=== PATIENT | female | born 1980 | race Caucasian/White ===

== ENCOUNTER 2017-06-21 06:12 | Observation (INO) | payer MEDICAID, SELFPAY ==
[2017-06-21] VITALS (19 sets, daily range): BP systolic 101–127; BP diastolic 66–90; PULSE 97–112; RESP 13–26; TEMP 36.4–37.6; O2SAT 95–100; BMI 34.0; BMI 33.6; BMI 33.7
--- NOTE | 2017-06-21 06:26 | EKG12_ITS ---
Test Reason : CP Blood Pressure : / mmHG Vent. Rate : 108 BPM Atrial Rate : 108 BPM P-R Int : 160 ms QRS Dur : 088 ms QT Int : 368 ms P-R-T Axes : 031 -12 040 degrees QTc Int : 493 ms Sinus tachycardia Abnormal ECG Old cathy septal DC Confirmed by ELIS OLIVARES ([id number]), website/blog editor ELIZABETH RODRIGUEZ ([id number]) on 06/26/2017 1:49:01 PM Referred By: VANESA Confirmed By:ELIS OLIVARES
--- NOTE | 2017-06-21 06:26 | RAD_ITS ---
STUDY: X-RAY CHEST REASON FOR EXAM: Female, 37 years old. CP SINCE YESTERDAY, SOB, HEART ATTACK HX 3 YRS AGO TECHNIQUE: Frontal and lateral views of the chest. COMPARISON: None. FINDINGS: The lungs are clear and expanded. There is no demonstrated pleural abnormality. Normal size heart. Normal mediastinum and charlene. Normal visualized pulmonary arteries. Normal visualized aortic arch and descending thoracic aorta. Normal visualized thoracic spine. Normal visualized ribs, clavicles, and shoulders. There is no demonstrated abnormality of the visualized soft tissue structures of the upper abdomen. RAD/Chest PA and Lateral IMPRESSION: Normal x-ray examination of the chest. Electronically Signed: Dorys Greene MD at 7:18 EST Tel , Service support ,
[2017-06-21 06:35] LABS: Absolute Lymphocyte Count 2.64 X10^3/ul (0.83-4.51); Absolute Neutrophil Count 4.7 X10^3/uL (2.0-7.7); Basophil# 0.03 X10^3/uL; Basophil% 0.4 % (0-1); Eosinophil# 0.14 X10^3/uL; Eosinophils% 1.7 % (0-5); Hematocrit 38.9 % (37-47); Hemoglobin 13.3 g/dl (12.0-15.0); Lymphocyte # 2.64 X10^3/ul (4.0); Lymphocyte % 32.2 % (19-41); Mean Corp Hgb Conc 34.2 g/gl (32-36); Mean Corpuscular Hgb 29.9 pg (27.0-32.0); Mean Corpuscular Volume 87.4 fL (81-99); Mean Platelet Vol. 10.1 fl (6.2-12.0); Monocyte# 0.66 X10^3/uL; Neutrophil # 4.71 X10^3/uL (2.7-7.7); Neutrophil % 57.5 % (47-70); Platelet Count 237 K/mm3 (150-450); RBC Distribution Width CV 12.6 % (11.6-14.6); RBC Distribution Width SD 39.2 fl (35.1-43.9); Red Blood Count 4.45 M/mm3 (4.2-5.4); White Blood Count 8.2 K/mm3 (4.4-11.0)
[2017-06-21 06:36] LABS: POSITIVE COUNT NO; POSITIVE DIFFERENTIAL NO; POSITIVE MORPHOLOGY NO
[2017-06-21 06:47] LABS: D-Dimer Quantitative (DVT/PE) < 0.27 FEU/ug/m (0.27-0.49)
[2017-06-21 06:52] LABS: Anion Gap 9 (5-15); BUN 14 mg/dL (7-18); BUN/Creat Ratio 17.6 RATIO (10-20); Calcium,Total 8.7 mg/dL (8.5-10.1); Chloride 102 mmol/L (98-107); EST Glomerular Filtration Rate 87 mL/min (>60); Est Glom Filt Rate - Afr Amer 105 mL/min (>60); Estimated Creatinine Clearance 94.54 ml/min; Glucose 368 mg/dL (74-106); Potassium 3.6 mmol/L (3.5-5.1); Sodium Level 137 mmol/L (136-145)
--- NOTE | 2017-06-21 07:08 | ED.VISSUMM ---
- ER Visit Summary Date of Service: 06/21/17 Chief Complaint: [] Chest pain History of Present Illness: The patient is a 37 F presents with chest pain since yesterday. Intermittent pain initially but has been constant since late yesterday. As a tightness left chest. Associated with nausea and dyspnea that is resolved. She was given morphine aspirin and nitroglycerin in the squad. She took a nitro at home. She has a history of hypertension diabetes high cholesterol and coronary artery disease. She has 2 stents. She had a heart cath in November of last year that shows stable coronaries and patent stents. Her ejection fraction was 40%. Physical Examination: [] Vital signs reviewed General: Well-nourished well-developed Head: Normocephalic atraumatic Eyes: Pupils equal round and reactive to light extraocular movements intact ENT: TMs clear no hemotympanum no trauma Neck: Nontender full range of motion Cardiovascular: Regular rate rhythm no murmurs normal S1-S2 Respiratory: No distress clear to auscultation bilaterally chest nontender Abdomen: Soft nontender nondistended normal bowel sounds no masses Back: Nontender no CVA tenderness Extremities: Nontender active range of motion ?4 extremities no trauma Skin: Normal color no trauma Neuro alert oriented cranial nerves II through XII intact normal strength sensation reflexes Test Results: [] Emergency Department Course and Treatment: [] EKG showed a sinus with a rate of 108. Q waves V1 through V4. Normal. Chemistries normal except glucose 362. Troponin negative. D-dimer negative. Chest x-ray shows nothing acute. Patient was given sublingual nitroglycerin. This did help her symptoms but she still has some pain. Requesting stronger pain medication. At this time I have a low suspicion for acute coronary syndrome PE or dissection. I do not feel she needs a CAT scan of her chest. Readmitted cardiac workup Treatment Plan: [] Disposition: [] Impression: [] Left-sided chest pain This note was generated with [email or web address] dictation software. It may contain incorrect words, spelling, and punctuation that were not noted in review of the chart prior to signing ED Disposition - Plan for ED Patient: Chief Complaint: Chest Pain Referrals: Alka Pringle [Primary Care Provider] -
--- NOTE | 2017-06-21 09:12 | PCM.HP.STD ---
Problem List (1) Chest pain Status: Acute (2) Syncope Status: Chronic (3) Obesity (BMI 30.0-34.9) Status: Chronic (4) Anxiety and depression Status: Chronic (5) Hyperlipidemia Status: Chronic Qualifiers: (6) Chest pain Status: Acute Qualifiers: (7) Type I diabetes mellitus Status: Chronic Qualifiers: (8) Coronary artery disease Status: Chronic Qualifiers: Comment: Status post stents (9) Hypertension Status: Chronic Qualifiers: (10) Chronic pain Status: Chronic Qualifiers: History of Present Illness Date of Admission: 06/21/17 Chief Complaint: chest pain The patient is a 37 year old F presents with a several day history of progressive chest pain. Patient stated chest pain is worse when she exerts herself and then gets better. Associated with shortness of breath and nausea. Patient also states that she has this cold sensation like breathing cold air on her chest. She states that this feels similar to when she had a heart attack and had a stent placed in 2013. Patient was admitted in November of last year and had a negative heart catheterization but she stated that she did not have the coldness in her chest at that time. [place] secondhand that the plan from the emergency room was for the patient to be discharged but the patient stated that she was having a heart attack and refused it. So we are asked to admit the patient for further evaluation. [] Past Medical History Past Medical History (Chronic Problems): Chronic Problems Syncope (Chronic) Obesity (BMI 30.0-34.9) (Chronic) Anxiety and depression (Chronic) Hyperlipidemia (Chronic) Type I diabetes mellitus (Chronic) Coronary artery disease (Chronic) Status post stents Hypertension (Chronic) Chronic pain (Chronic) Allergies Iodinated Contrast- Oral and IV Dye [Iodinated Contrast Media - IV Dye] Allergy (Verified 06/21/17 06:26) Hives nitroglycerin [From Nitro-Bid] Allergy (Verified 06/21/17 06:26) DROPS HR LOW BP Penicillins Allergy (Verified 06/21/17 06:26) Rash Sulfa (Sulfonamide Antibiotics) Allergy (Verified 06/21/17 06:26) Hives Beta-Blockers (Beta-Adrenergic Bloc Adverse Reaction (Verified 06/21/17 06:26) Low blood pressure gabapentin [From Neurontin] Adverse Reaction (Verified 06/21/17 06:26) Upset Stomach metformin Adverse Reaction (Verified 06/21/17 06:26) Upset Stomach nitroglycerin IV Allergy (Uncoded 06/21/17 06:26) DROPS HR nitro drips per pt will drop bp quick and will bottom out Home Medications: Ambulatory Orders Medication Instructions Recorded Aspirin [Aspirin, Baby] 81 mg PO DAILY 03/04/15 Insulin Glargine [Lantus SoloStar 35 units SC BID 03/04/15 Pen] Magnesium Oxide [Mag-Ox 400] 800 mg PO DAILY 03/04/15 Insulin Aspart [Novolog Vial] 10 unit SQ TIDCM 11/24/15 Sertraline HCl [Zoloft] 100 mg PO DAILY 11/25/15 Nitroglycerin [Nitrostat] 0.4 mg SUBLINGUAL Q5M PRN #1 bottle 11/26/15 Insulin Aspart [Novolog Flexpen] See Protocol SC TIDCM 03/20/16 Pregabalin [Lyrica] 250 mg PO QHS 01/22/17 Atorvastatin Calcium [Lipitor] 80 mg PO QHS 04/26/17 Clopidogrel Bisulfate [Plavix] 75 mg PO DAILY 04/26/17 Cyanocobalamin [Vitamin B12] 1,000 mcg PO DAILY@0800 04/26/17 Folic Acid 1 mg PO DAILY@0800 04/26/17 Isosorbide Mononitrate [Imdur] 30 mg PO DAILY 04/26/17 Pyridoxine HCl [Vitamin B-6] 100 mg PO DAILY@0800 04/26/17 Metoprolol Succinate [Toprol Xl] 50 mg PO DAILY #30 tab.er.24h 04/27/17 ranolazine ER 1,000 mg 1,000 mg PO BID #60 tab 05/29/17 tablet,extended release,12 hr Amitriptyline HCl [Elavil] 25 mg PO QHS 06/21/17 BuPROPion (XL) [Wellbutrin Xl] 300 mg PO DAILY 06/21/17 Prazosin HCl [Minipress] 5 mg PO DAILY 06/21/17 Surgical History: - - PCI ?2, bilateral tubal ligation, back surgery with L4-L5 rods and screws in place, tonsillectomy. 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 Denies: Blurred vision, Double vision HEENT: Denies: Head Aches, Sinus Congestion, Sinus Drainage Cardiovascular: Reports: Chest Pain. Denies: Edema Respiratory: Reports: Shortness of breath upon exertion. Denies: Cough, Shortness of breath at rest, Sputum production Gastrointestinal: Reports: Nausea. Denies: Abdominal Pain Genitourinary: Denies: Dysuria Musculoskeletal: Denies: Joint Pain, Joint Tenderness Skin: Denies: Rash, Wounds Neurological: Denies: Numbness, Tingling, Focal weakness Psychiatric: Reports: Anxiety Hematologic/ Lymphatic: Denies: Easy Bruising, Easy Bleeding, Hx of blood clot VTE Information - Inpt Only VTE Present on Admission: No VTE Pharm Prophylaxis ordered?: Yes Patient Problems: Active and Suspected Problems Chest pain (Acute) - Physical Exam General: Alert, Cooperative, No apparent distress, - - Years older than stated age HEENT: Atraumatic, Normocephalic Neck: No Nodes, Thyroid Normal Size and Texture Lungs: Clear to auscultation, Normal air movement, No rhonchi, No wheeze Cardiovascular: Regular rate, Regular Rhythm, Normal S1, Normal S2, No murmurs Abdomen: Bowel Sounds Present, Soft, Non Tender, Non-Distended, No Hepato-splenomegaly Extremities: No edema, No Calf Tenderness Psych/Mental Status: Normal Affect, Appropriate Vital Signs Temp Pulse Resp BP Pulse Ox 36.4 C L 104 H 14 111/81 H 98 06/21/17 06:13 06/21/17 08:57 06/21/17 08:12 06/21/17 08:12 06/21/17 08:12 Oxygen Flow Rate 2 Oxygen Delivery Method Nasal Cannula Weight: 97.522 kg Body Mass Index (BMI) 33.6 Assessment/Plan Active and Suspected Problems Chest pain (Acute) 1. Chest pain EKG, initial troponin, d-dimer, chest x-ray are all unremarkable. Patient does have known coronary artery disease and she states that this is very similar to that. Patient did have a normal heart catheterization in November of last year. Given the patient's symptoms, and her history I will consult cardiology for further input and evaluation. In the meantime we will cycle troponins. Concern is that this may be another anxiety episode that the patient was felt to have had back in November or possibly some other issue,. Apparently there was some concern about patient requesting stronger pain medications in the emergency room. 2. Diabetes mellitus type I Appears to be uncontrolled but will continue the patient on her home regimen and monitor. Patient is not in diabetic ketoacidosis at this time. 3. Deep prophylaxis with Lovenox. Code Visit OBSV E&M: 54945 Initial observation care L2
--- NOTE | 2017-06-21 09:18 | HP.PCM_ITS ---
Problem List (1) Chest pain Status: Acute (2) Syncope Status: Chronic (3) Obesity (BMI 30.0-34.9) Status: Chronic (4) Anxiety and depression Status: Chronic (5) Hyperlipidemia Status: Chronic Qualifiers: (6) Chest pain Status: Acute Qualifiers: (7) Type I diabetes mellitus Status: Chronic Qualifiers: (8) Coronary artery disease Status: Chronic Qualifiers: Comment: Status post stents (9) Hypertension Status: Chronic Qualifiers: (10) Chronic pain Status: Chronic Qualifiers: History of Present Illness Date of Admission: 06/21/17 Chief Complaint: chest pain The patient is a 37 year old F presents with a several day history of progressive chest pain. Patient stated chest pain is worse when she exerts herself and then gets better. Associated with shortness of breath and nausea. Patient also states that she has this cold sensation like breathing cold air on her chest. She states that this feels similar to when she had a heart attack and had a stent placed in 2013. Patient was admitted in November of last year and had a negative heart catheterization but she stated that she did not have the coldness in her chest at that time. [place] secondhand that the plan from the emergency room was for the patient to be discharged but the patient stated that she was having a heart attack and refused it. So we are asked to admit the patient for further evaluation. [] Past Medical History Past Medical History (Chronic Problems): Chronic Problems Syncope (Chronic) Obesity (BMI 30.0-34.9) (Chronic) Anxiety and depression (Chronic) Hyperlipidemia (Chronic) Type I diabetes mellitus (Chronic) Coronary artery disease (Chronic) Status post stents Hypertension (Chronic) Chronic pain (Chronic) Allergies Iodinated Contrast- Oral and IV Dye [Iodinated Contrast Media - IV Dye] Allergy (Verified 06/21/17 06:26) Hives nitroglycerin [From Nitro-Bid] Allergy (Verified 06/21/17 06:26) DROPS HR LOW BP Penicillins Allergy (Verified 06/21/17 06:26) Rash Sulfa (Sulfonamide Antibiotics) Allergy (Verified 06/21/17 06:26) Hives Beta-Blockers (Beta-Adrenergic Bloc Adverse Reaction (Verified 06/21/17 06:26) Low blood pressure gabapentin [From Neurontin] Adverse Reaction (Verified 06/21/17 06:26) Upset Stomach metformin Adverse Reaction (Verified 06/21/17 06:26) Upset Stomach nitroglycerin IV Allergy (Uncoded 06/21/17 06:26) DROPS HR nitro drips per pt will drop bp quick and will bottom out Home Medications: Ambulatory Orders Medication Instructions Recorded Aspirin [Aspirin, Baby] 81 mg PO DAILY 03/04/15 Insulin Glargine [Lantus SoloStar 35 units SC BID 03/04/15 Pen] Magnesium Oxide [Mag-Ox 400] 800 mg PO DAILY 03/04/15 Insulin Aspart [Novolog Vial] 10 unit SQ TIDCM 11/24/15 Sertraline HCl [Zoloft] 100 mg PO DAILY 11/25/15 Nitroglycerin [Nitrostat] 0.4 mg SUBLINGUAL Q5M PRN #1 bottle 11/26/15 Insulin Aspart [Novolog Flexpen] See Protocol SC TIDCM 03/20/16 Pregabalin [Lyrica] 250 mg PO QHS 01/22/17 Atorvastatin Calcium [Lipitor] 80 mg PO QHS 04/26/17 Clopidogrel Bisulfate [Plavix] 75 mg PO DAILY 04/26/17 Cyanocobalamin [Vitamin B12] 1,000 mcg PO DAILY@0800 04/26/17 Folic Acid 1 mg PO DAILY@0800 04/26/17 Isosorbide Mononitrate [Imdur] 30 mg PO DAILY 04/26/17 Pyridoxine HCl [Vitamin B-6] 100 mg PO DAILY@0800 04/26/17 Metoprolol Succinate [Toprol Xl] 50 mg PO DAILY #30 tab.er.24h 04/27/17 ranolazine ER 1,000 mg 1,000 mg PO BID #60 tab 05/29/17 tablet,extended release,12 hr Amitriptyline HCl [Elavil] 25 mg PO QHS 06/21/17 BuPROPion (XL) [Wellbutrin Xl] 300 mg PO DAILY 06/21/17 Prazosin HCl [Minipress] 5 mg PO DAILY 06/21/17 Surgical History: - - PCI ?2, bilateral tubal ligation, back surgery with L4-L5 rods and screws in place, tonsillectomy. 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 Denies: Blurred vision , Double vision HEENT: Denies: Head Aches, Sinus Congestion, Sinus Drainage Cardiovascular: Reports: Chest Pain. Denies: Edema Respiratory: Reports: Shortness of breath upon exertion. Denies: Cough, Shortness of breath at rest, Sputum production Gastrointestinal: Reports: Nausea. Denies: Abdominal Pain Genitourinary: Denies: Dysuria Musculoskeletal: Denies: Joint Pain, Joint Tenderness Skin: Denies: Rash, Wounds Neurological: Denies: Numbness, Tingling, Focal weakness Psychiatric: Reports: Anxiety Hematologic/ Lymphatic: Denies: Easy Bruising, Easy Bleeding, Hx of blood clot VTE Information - Inpt Only VTE Present on Admission: No VTE Pharm Prophylaxis ordered?: Yes Patient Problems: Active and Suspected Problems Chest pain (Acute) - Physical Exam General: Alert, Cooperative, No apparent distress, - - Years older than stated age HEENT: Atraumatic, Normocephalic Neck: No Nodes, Thyroid Normal Size and Texture Lungs: Clear to auscultation, Normal air movement, No rhonchi, No wheeze Cardiovascular: Regular rate, Regular Rhythm, Normal S1, Normal S2, No murmurs Abdomen: Bowel Sounds Present, Soft, Non Tender, Non-Distended, No Hepato- splenomegaly Extremities: No edema, No Calf Tenderness Psych/Mental Status: Normal Affect, Appropriate Vital Signs Temp Pulse Resp BP Pulse Ox 36.4 C L 104 H 14 111/81 H 98 06/21/17 06:13 06/21/17 08:57 06/21/17 08:12 06/21/17 08:12 06/21/17 08:12 Oxygen Flow Rate 2 Oxygen Delivery Method Nasal Cannula Weight: 97.522 kg Body Mass Index (BMI) 33.6 Assessment/Plan Active and Suspected Problems Chest pain (Acute) 1. Chest pain * EKG, initial troponin, d-dimer, chest x-ray are all unremarkable. * Patient does have known coronary artery disease and she states that this is very similar to that. * Patient did have a normal heart catheterization in November of last year. * Given the patient's symptoms, and her history I will consult cardiology for further input and evaluation. In the meantime we will cycle troponins. Concern is that this may be another anxiety episode that the patient was felt to have had back in November or possibly some other issue,. Apparently there was some concern about patient requesting stronger pain medications in the emergency room. 2. Diabetes mellitus type I * Appears to be uncontrolled but will continue the patient on her home regimen and monitor. Patient is not in diabetic ketoacidosis at this time. 3. Deep prophylaxis with Lovenox. Code Visit OBSV E&M: 71917 Initial observation care L2
[2017-06-21] MEDS: 0.9% NaCl Peripheral Flush Adult/Peds IV ×2 (09:49→21:41)
--- NOTE | 2017-06-21 09:54 | STEWCON_ITS ---
Reason For Study: Chest Pain Stress Results Protocol: Dobutamine Stress Echo Maximum Predicted HR: 184 bpm Target HR: 156 bpm% Maximum Pre dicted HR: 77 % DurationHeart Rate Stage (mm:ss) (bpm) BPCom ment Baseline 100 112/8 2Definity 4 ML Diluted Given DSE 10 MCG 3:00 10 0 115/81 DSE 20 MCG 3:04 11 4 111/78 DSE 30 MCG 3:00 12 6 132/84 DSE 40 MCG 5:37 14 1 132/83Atropine 1 MG IVP Recovery 105 123/8 9 Stress Duration: 14:41 mm:ss Maximum Stress HR: 141 bpmME TS: 1 Baseline Echocardiogram Findings The estimated ejection fraction is 45 %. Stress Echo Wall motion Data Resting WMIntermediate WMStress WM Resting Wall Motion Wall Motion Stress Basal anteroseptal: Severely All remaining camargo augmented Hypokinetic. normally. Mid-anteroseptal : Severly Hypokinetic. EKG Data NSR with old AWMI. The patient was titrated from 10 mcg to a maximum of 40 mcg of dobutamine during the stress. The maximum heart rate attained was 141 beats per minute. This was 76% of maximum predicted heart rate. During dobutamine infusion, there were no ST or T wave changes noted to suggest ischemia. No clinical angina was noted. No arrhythmias noted. Interpretation Summary The study was technically difficult. There is no comparison study available. Contrast injection was performed. Normal, submaximal, dobutamine echocardiogram. Negative for ischemia by EKG and echocardiographic anterior. Baseline moderate to severe anteroseptal wall hypokinesis due to previous myocardial infarction with minimal improvement during infusion. All other cam[place] appeared to augment normally at peak infusion. No anginal symptoms noted. Appropriate blood pressure response to dobutamine. Test terminated due to maximum dobutamine and atropine dosages. Decreased sensitivity due to poor echo windows requiring contrast agent and failure to reach target heart rate. Patient tolerated procedure well. No complications. Ordering Physician: Gus Griffin Referring Physician: Jc Luna MD Performed By: Elisa Mcfadden, JORDI, RVT
--- NOTE | 2017-06-21 10:26 | PCM.CONS.C ---
Problem List (1) Chest pain Status: Acute (2) Hyperlipidemia Status: Chronic Qualifiers: (3) Type I diabetes mellitus Status: Chronic Qualifiers: (4) Coronary artery disease Status: Chronic Qualifiers: Comment: Status post stents (5) Hypertension Status: Chronic Qualifiers: Reason for Consult Date of Consultation: 06/21/17 Reason for Consultation: Chest pain, hypertension, diabetes type 1, hypercholesterolemia, obesity, fibromyalgia History of Present Illness: The patient is a 37 year old F, patient of Dr. Ma's, with a history of hypertension, hypercholesterolemia, diabetes diagnosed at age 19 requiring insulin from that point forward, coronary artery disease status post acute anterior wall myocardial infarction 2013 at which time she went to [facility] and underwent emergent angioplasty and stenting of her LAD. The patient returned with substernal chest pain soon after that underwent repeat catheterization and underwent elective stenting of her mid RCA at [facility]. Subsequent to that the patient has had several catheterizations, 2 in 2015, and most recently in November 2016 at [facility] by Dr. Ma. I reviewed the catheterization film which demonstrated widely patent stents to her LAD and RCA, left to right collaterals to a small posterior lateral branch, right to left collaterals to a small posterior lateral branch as well, nonobstructive disease of her left main and left circumflex. Patient did have a very small diagonal branch which was pinched at its ostium, which is not amenable to PCI. Her main diagonal branch had a less than 50% stenosis at the ostium at the point of the stent in the LAD. Her LVEF was approximately 45-50% by my estimation. Patient has been struggling recently with progressively worsening dyspnea on exertion, chest pain, dizziness and blurry vision with bending over and standing up, and dyspnea on exertion after walking around 40 feet. Patient developed chest pain which woke her up this morning with partial relief with sublingual nitroglycerin ?3. When this did not improve, she came to [facility] for evaluation. Her initial EKG showed normal sinus rhythm with old anterior septal wall myocardial infarction, no acute changes. Her troponins been negative ?2. Patient states that when she has been tested in the past by walking on a treadmill her blood pressure, particularly the diastolic number of over 160, markedly increases to the point where she needs to stop. She has been compliant with her medications. 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 In addition she has a history of fibromyalgia, as well as MTH FR deficiency. [] Past Medical History Allergies/Adverse Reactions: Allergies Iodinated Contrast- Oral and IV Dye [Iodinated Contrast Media - IV Dye] Allergy (Verified 06/21/17 06:26) Hives nitroglycerin [From Nitro-Bid] Allergy (Verified 06/21/17 06:26) DROPS HR LOW BP Penicillins Allergy (Verified 06/21/17 06:26) Rash Sulfa (Sulfonamide Antibiotics) Allergy (Verified 06/21/17 06:26) Hives Beta-Blockers (Beta-Adrenergic Bloc Adverse Reaction (Verified 06/21/17 06:26) Low blood pressure gabapentin [From Neurontin] Adverse Reaction (Verified 06/21/17 06:26) Upset Stomach metformin Adverse Reaction (Verified 06/21/17:26) Upset Stomach nitroglycerin IV Allergy (Uncoded 06/21/17 06:26) DROPS HR nitro drips per pt will drop bp quick and will bottom out Home Medications: Ambulatory Orders Medication Instructions Recorded Aspirin [Aspirin, Baby] 81 mg PO DAILY 03/04/15 Insulin Glargine [Lantus SoloStar 35 units SC BID 03/04/15 Pen] Magnesium Oxide [Mag-Ox 400] 800 mg PO DAILY 03/04/15 Insulin Aspart [Novolog Vial] 10 unit SQ TIDCM 11/24/15 Sertraline HCl [Zoloft] 100 mg PO DAILY 11/25/15 Nitroglycerin [Nitrostat] 0.4 mg SUBLINGUAL Q5M PRN #1 bottle 11/26/15 Insulin Aspart [Novolog Flexpen] See Protocol SC TIDCM 03/20/16 Pregabalin [Lyrica] 250 mg PO QHS 01/22/17 Atorvastatin Calcium [Lipitor] 80 mg PO QHS 04/26/17 Clopidogrel Bisulfate [Plavix] 75 mg PO DAILY 04/26/17 Cyanocobalamin [Vitamin B12] 1,000 mcg PO DAILY@0800 04/26/17 Folic Acid 1 mg PO DAILY@0800 04/26/17 Isosorbide Mononitrate [Imdur] 30 mg PO DAILY 04/26/17 Pyridoxine HCl [Vitamin B-6] 100 mg PO DAILY@0800 04/26/17 Metoprolol Succinate [Toprol Xl] 50 mg PO DAILY #30 tab.er.24h 04/27/17 ranolazine ER 1,000 mg 1,000 mg PO BID #60 tab 05/29/17 tablet,extended release,12 hr Amitriptyline HCl [Elavil] 25 mg PO QHS 06/21/17 BuPROPion (XL) [Wellbutrin Xl] 300 mg PO DAILY 06/21/17 Prazosin HCl [Minipress] 5 mg PO DAILY 06/21/17 Past Medical History (Chronic Problems): Chronic Problems Syncope (Chronic) Obesity (BMI 30.0-34.9) (Chronic) Anxiety and depression (Chronic) Hyperlipidemia (Chronic) Type I diabetes mellitus (Chronic) Coronary artery disease (Chronic) Status post stents Hypertension (Chronic) Chronic pain (Chronic) Surgical History: - - PCI ?2, bilateral tubal ligation, back surgery with L4-L5 rods and screws in place, tonsillectomy. 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: Anxiety, Depression MUSIC CRITIC History: No pertinent MUSIC CRITIC history - *Family History Paternal History Items: Heart Disease Maternal History Items: Stroke Smoking Status: Never smoker Review of Systems - Review of Systems General: Denies: Fever, Night Sweats, Fatigue Cardiovascular: Reports: Chest Discomfort, Chest Discomfort at Rest, Chest Discomfort with Exertion, Chest Pressure, Chest Tightness, Shortness of Breath, Shortness of Breath with Exertion. Denies: Orthopnea, PND, Peripheral Edema, Palpitations, Lightheadedness, Dizziness, Near Syncope, Syncope Respiratory: Denies: Cough, Sputum Production, Hemoptysis Gastrointestinal: Denies: Hematemesis, Hematochezia, Melena Genitourinary: Denies: Dysuria, Hematuria Skin: Denies: Rash Subjectve: Patient laying in bed, no acute distress. Telemetry negative. Objective: Vital Signs Temp Pulse Resp BP Pulse Ox 97.5 F L 104 H 14 111/81 H 98 06/21/17 06:13 06/21/17 08:57 06/21/17 08:12 06/21/17 08:12 06/21/17 08:12 Oxygen Flow Rate 2 Oxygen Delivery Method Nasal Cannula Weight: 215 lb Body Mass Index (BMI) 33.6 General: Awake, Alert, Oriented x 3 HEENT: PERRL, EOMI, Sclera Non Icteric Neck: Supple, Good ROM, No Lymph Node Enlargement Lungs: Clear to auscultation Cardiovascular: Regular Rhythm, Normal S1, Normal S2, No Murmurs, No Rubs, No Gallops Vascular: No Carotid Bruits, Normal Femoral Pulses, Normal Radial Pulses, Normal Dorsalis Pedal Pulse, Normal Posterior Tibial Pulses Abdomen: Bowel Sounds Present, Soft, Non Tender, No HSM, No Organomegaly Extremities: No Cyanosis, No Clubbing, No edema Neurological: No Focal Motor or Sensory Deficit 06/21/17 09:45: Troponin I < 0.02 Rhythm: EKG: ECHO: Stress Test: Cardiac Cath: PCI: CT Surgery: Holter monitor: EPS: PPM: CXR: Chest CT Scan: Assessment/Plan 1. Coronary artery disease: Patient is chest pain is progressively worsening over the last several days to weeks, and based on her history of walking on a treadmill in the past that is most likely hypertensive induced as well. I have no doubt that her chest pain is most likely cardiac in origin, given her microvascular disease and very small vessels, some of which have ostial narrowings that are too small for PCI. I would like to improve her relationship between exertion and hypertensive induced chest pain with a modified Shiva treadmill echocardiogram mostly to evaluate her inferior wall to determine if she requires repeat catheterization. She already has known collaterals from left to right and right to left which may be contributing to her ischemic symptoms, particularly without stripping the collaterals during severe hypertensive episodes which increase cardiac wall stress. In addition I recommend switching her metoprolol to Coreg 6.25 mg p.o. twice daily and titrating up from there. The patient may require additional antihypertensive medications and if she has markedly increased diastolic pressures she would benefit from a diuretic such as Lasix or hydrochlorothiazide. She is already on Ranexa and is tolerating this fairly well for her microvascular disease. If the patient's stress test is markedly abnormal, she may require repeat diagnostic coronary angiogram and possibly flow wire evaluation and/or PCI of her diagonal branch to determine if she would benefit from intervention of this vessel #1. This may be somewhat problematic given the bifurcating nature of her LAD and diagonal at the previous stent site in the LAD. 2. Hyperlipidemia: Recommend obtaining a fasting lipid profile. Continue Lipitor for now. 3. Thank you very much for the opportunity to participate in the cardiac care of your patient. Consultation time took place between 10 AM and 10:30 AM. Code Visit Inpatient E&M: 67479 Init Hosp L2
[2017-06-21] MEDS: Magnesium Oxide 400 MG Tablet 800 MG PO (12:56)
[2017-06-21] MEDS: Clopidogrel Bisulfate 75 MG Tablet PO (12:58)
[2017-06-21] MEDS: Sertraline 100 MG Tablet PO (12:59)
[2017-06-21] MEDS: oxyCODONE 5 MG Tablet PO ×2 (13:11→20:40)
[2017-06-21 14:14] LABS: CRP < 2.90 mg/L (0.0-3.0)
[2017-06-21 14:15] LABS: Erythrocyte Sedimentation Rate 11 mm/hr (0-20)
[2017-06-21 14:31] LABS: Bedside Glucose 260 mg/dL (70-110)
--- NOTE | 2017-06-21 14:58 | ECHOCS_ITS ---
Reason For Study: CAD Procedure This was a 2D Doppler, Color Flow transthoracic echocardiogram. Contrast injection was performed. Exam performed portable in patient room. Left Ventricle Normal size and thickness. The estimated ejection fraction is 50 %. Anterio-Basal: Mildly hypokinetic. Mid-Anterior : Mildly hypokinetic. Mid-anteroseptal : Mildly hypokinetic. Right Ventricle Normal size and thickness. Normal systolic function. Atria Normal left atrium. Normal right atrium. Normal atrial septum. Mitral Valve The mitral valve is structurally normal. No prolapse or stenosis seen. Tricuspid Valve Normal tricuspid valve. Unable to estimate RV systolic pressure/pulmonary artery pressure due to technically difficult study. Trivial tricuspid valve insufficiency. Pulmonic Valve Normal pulmonic valve. Great Vessels Normal aortic root. Normal arch. Normal inferior vena cava. Inferior vena cava collapse with sniff. Pericardium/Pleural Trivial pericardial effusion. There are no echocardiographic indications of cardiac tamponade. Medication Diluted definity 3ml given slow IV push to enhance endocardial definition. MMode/2D Measurements & Calculations LVIDd: 4.6 cm IVSd: 1.1 cm LA dimension: 3.1 cm LVIDs: 3.3 cm LVPWd: 1.0 cm FS: 28.2 % LAV(MOD-bp): 34.8 ml EDV(MOD-sp4): 122.1 ml EDV(MOD-sp2): 98.7 ml LAV(MOD-bp) Indexed: 16.7 ml/m2 ESV(MOD-sp4): 54.7 ml EF(MOD-sp2): 36.4 % LAV(MOD-sp2): 37.3 ml EF(MOD-sp4): 55.2 % LAV(MOD-sp4): 31.0 ml SV(MOD-sp4): 67.4 ml SV(MOD-sp2): 35.9 ml LA A4 area: 14.1 cm2 RA A4 area: 11.1 cm2 Doppler Measurements & Calculations MV E max raphael: 59.2 cm/sec Ao V2 max: 106.6 cm/sec LV V1 max: 100.9 cm/sec MV A max raphael: 80.3 cm/sec Ao max P.5 mmHg LV V1 max P.1 mmHg MV E/A: 0.74 Interpretation Summary The estimated ejection fraction is 50 %. Anterio-Basal: Mildly hypokinetic Mid-Anterior : Mildly hypokinetic Mid-anteroseptal : Mildly hypokinetic Unable to estimate RV systolic pressure/pulmonary artery pressure due to technically difficult study. Trivial pericardial effusion. There are no echocardiographic indications of cardiac tamponade. There is no comparison study available. The study was technically difficult. Contrast injection was performed. Ordering Physician: Jc Luna Referring Physician: HIPOLITO JEFF Performed By: Elisa Mcfadden RDCS, RVT
[2017-06-21] MEDS: Ranolazine 500 MG Tablet 1000 MG PO ×2 (15:58→21:35)
[2017-06-21] MEDS: Isosorbide Mononitrate 30 MG Tablet PO (15:58)
[2017-06-21 18:31] LABS: Bedside Glucose 263 mg/dL (70-110)
--- NOTE | 2017-06-21 21:15 | EKG12_ITS ---
Test Reason : CP Blood Pressure : / mmHG Vent. Rate : 099 BPM Atrial Rate : 099 BPM P-R Int : 176 ms QRS Dur : 104 ms QT Int : 374 ms P-R-T Axes : 042 -12 044 degrees QTc Int : 479 ms Normal sinus rhythm Old ASWMI Low voltage QRS Borderline ECG When compared with ECG of 21-JUN-2017 20:54, MANUAL COMPARISON REQUIRED, DATA IS UNCONFIRMED Confirmed by ELIS OLIVARES ([id number]), deputy editor in chief ELIZABETH RODRIGUEZ ([id number]) on 06/26/2017 1:58:03 PM Referred By: ELISE Confirmed By:ELIS OLIVARES
[2017-06-21] MEDS: Amitriptyline 25 MG Tablet PO (21:35)
[2017-06-21] MEDS: Doxazosin 4 MG Tablet PO (21:35)
[2017-06-21] MEDS: Hydrocortisone Sod Succinate 100 MG/2 ML Vial IV (21:36)
[2017-06-21] MEDS: Atorvastatin Calcium 80 MG Tablet PO (21:36)
[2017-06-21] MEDS: Carvedilol 3.125 MG TABLET PO (21:36)
[2017-06-21] MEDS: Pregabalin 50 MG Capsule 250 MG PO (21:41)
[2017-06-21 22:01] LABS: Bedside Glucose 272 mg/dL (70-110)
[2017-06-22] VITALS (17 sets, daily range): BP systolic 92–133; BP diastolic 58–95; PULSE 78–97; RESP 15–25; TEMP 35.8–36.8; O2SAT 93–98
[2017-06-22 03:33] LABS: Mucous, Urine 0 SEEN /hpf (<or=2+)
[2017-06-22 03:34] LABS: Color, Urine Yellow (Yellow); Glucose, Dipstick 1000 mg/dl (Normal); Ketone-Dipstick 5 mg/dl (Negative); Leukocyte Esterase-Dipstick 25 /ul (Negative); Nitrite-Dipstick Negative (Negative); Occult Blood-Urine 250 /ul (Negative); Protein-Dipstick 15 mg/dl (Negative); Urine Bilirubin Dipstick Negative (Negative); Urine Clarity Sl. Cloudy (Clear); Urine Urobilinogen Normal (Normal)
[2017-06-22 03:38] LABS: Internal QC Validated? YES +Cl - CLEAR BKGD; Pregnancy, Urine Negative Negative
[2017-06-22 03:44] LABS: Bacteria RARE /hpf (None Seen); Red Blood Cells-Urine 5-10 SEEN /hpf (0-5); Squamous Epithelial Cells - UA 5-10 SEEN /hpf (5-10); Transitional Epithelial - Ur 0 SEEN /hpf (0-5); White Blood Cells 5-10 SEEN /hpf (0-5)
[2017-06-22 05:19] LABS: Anion Gap 10 (5-15); BUN 15 mg/dL (7-18); BUN/Creat Ratio 23.2 RATIO (10-20); Calcium,Total 8.1 mg/dL (8.5-10.1); Chloride 102 mmol/L (98-107); Cholesterol 124 mg/dL (200); Creatinine, Serum 0.65 mg/dL (0.55-1.02); EST Glomerular Filtration Rate 110 mL/min (>60); Est Glom Filt Rate - Afr Amer 133 mL/min (>60); Estimated Creatinine Clearance 116.36 ml/min; Glucose 272 mg/dL (74-106); High Density Lipoprotein 41 mg/dL; Potassium 4.2 mmol/L (3.5-5.1); Sodium Level 137 mmol/L (136-145); Triglycerides 125 mg/dL; Very Low Density Lipoprotein 25 mg/dL (5-40)
[2017-06-22 05:24] LABS: Absolute Lymphocyte Count 1.19 X10^3/ul (0.83-4.51); Absolute Neutrophil Count 4.5 X10^3/uL (2.0-7.7); Basophil# 0.01 X10^3/uL; Basophil% 0.2 % (0-1); Eosinophil# 0.04 X10^3/uL; Eosinophils% 0.7 % (0-5); Hematocrit 37.8 % (37-47); Hemoglobin 12.8 g/dl (12.0-15.0); Lymphocyte # 1.19 X10^3/ul (4.0); Lymphocyte % 20.2 % (19-41); Mean Corp Hgb Conc 33.9 g/gl (32-36); Mean Corpuscular Hgb 30.1 pg (27.0-32.0); Mean Corpuscular Volume 88.9 fL (81-99); Mean Platelet Vol. 9.9 fl (6.2-12.0); Monocyte# 0.18 X10^3/uL; Monocyte% 3.1 % (0-10); Neutrophil # 4.45 X10^3/uL (2.7-7.7); Neutrophil % 75.6 % (47-70); Platelet Count 213 K/mm3 (150-450); RBC Distribution Width CV 12.6 % (11.6-14.6); RBC Distribution Width SD 40.5 fl (35.1-43.9); Red Blood Count 4.25 M/mm3 (4.2-5.4); White Blood Count 5.9 K/mm3 (4.4-11.0)
[2017-06-22 05:25] LABS: POSITIVE COUNT NO; POSITIVE DIFFERENTIAL NO; POSITIVE MORPHOLOGY NO
[2017-06-22 05:28] LABS: Prothrombin Time (Protime)PT. 13.1 SECONDS (11.7-14.9)
[2017-06-22 05:29] LABS: Partial Thromboplast Time 25.9 Seconds (24.1-36.2)
--- NOTE | 2017-06-22 05:55 | EKG12_ITS ---
Test Reason : AM EKG Blood Pressure : / mmHG Vent. Rate : 085 BPM Atrial Rate : 085 BPM P-R Int : 186 ms QRS Dur : 108 ms QT Int : 408 ms P-R-T Axes : 049 -16 048 degrees QTc Int : 485 ms Normal sinus rhythm Low voltage QRS Borderline ECG When compared with ECG of 21-JUN-2017 20:56, MANUAL COMPARISON REQUIRED, DATA IS UNCONFIRMED Confirmed by ELIS OLIVARES ([id number]), city editor ELIZABETH RODRIGUEZ ([id number]) on 06/26/2017 2:23:52 PM Referred By: ALONA Confirmed By:ELIS OLIVARES
[2017-06-22] MEDS: Aspirin 81 MG TAB.CHEW PO (06:06)
[2017-06-22] MEDS: Carvedilol 3.125 MG TABLET PO (06:06)
[2017-06-22] MEDS: Clopidogrel Bisulfate 75 MG Tablet PO (06:07)
[2017-06-22] MEDS: Losartan Potassium 50 MG Tablet PO (06:07)
[2017-06-22] MEDS: Isosorbide Mononitrate 30 MG Tablet PO (06:07)
[2017-06-22] MEDS: 0.9% NaCl Peripheral Flush Adult/Peds IV (06:08)
[2017-06-22 07:06] LABS: Bedside Glucose 192 mg/dL (70-110)
[2017-06-22] MEDS: DiphenhydrAMINE 25 MG Capsule 50 MG PO (07:39)
[2017-06-22] MEDS: Hydrocortisone Sod Succinate 100 MG/2 ML Vial IV (07:40)
--- NOTE | 2017-06-22 08:05 | CASEMGMT ---
Insurance review for [facility] using [employer] website. [facility], [facility], , [facility], [facility], [facility], [facility]. For further questions, please contact CM. Danielle FARR RN ACM
[2017-06-22 08:41] LABS: Base Excess -4 mmol/L (-2 to +2); Bicarbonate 20.7 mmol/L (22-26); Blood Gas Specimen Type ART; PO2 33 mmHG (75-100); SO2 63 % (95-99); Total Carbon Dioxide 22 mmol/L; pCO2 34.1 mmHg (35-45); pH 7.39 (7.35-7.45)
[2017-06-22 08:41] LABS: Base Excess -5 mmol/L (-2 to +2); Bicarbonate 20.2 mmol/L (22-26); Blood Gas Specimen Type ART; PO2 69 mmHG (75-100); SO2 93 % (95-99); Total Carbon Dioxide 21 mmol/L; pCO2 34.5 mmHg (35-45); pH 7.38 (7.35-7.45)
--- NOTE | 2017-06-22 09:36 | CL.D_ITS ---
Patient Name: LATA STONE Study Date: 06/22/2017 Performing: Jc Luna MD Ht: 66.92 inches 170 cm : 1980 Wt: 216.05 lbs 98 kg Age: 37 Gender: female BSA: 2.09 Amended PROCEDURE(S) PERFORMED SF29-TGL/LHC/COR/LV CLINICAL PROFILE AND INDICATIONS INDICATIONS: Unstable Angina Stress/Imaging Stress Echocardiogram: Yes Result: IndeterminantStress Echocardiogram: Indetermina nt Angina Classification Anginal Classification w/in 2 Weeks: CCS IV CAD Presentations: Unstable angina. Comorbidities/Risk Factors: Hypertension Dyslipidemia Prior CHF Prior PCI Diabetes Mellitus: Diabetes Therapy: Insulin CONCLUSIONS Non obstructive coronary arteries Segmented LV systolic dysfunction- Moderate The patient has normal pulmonary hemodynamics. RECOMMENDATIONS Risk factor modification PCI of DIAG and acute marginal branches are of questionable benefit, and appear similar to previous c ath <6 months ago. Pt has had CP since 2013 when she had her AR. Stents widely patent. Pt with kno wn severe exertional HTN, most likely causing high wall tension and exertional angina. Will add hyza ar and titrate up. Pt had positional dizziness with coreg in past, so continue lopressor. Management as per referring Case Work Aide Manual sheath removal. DESCRIPTION OF PROCEDURE The patient arrived to the procedure lab. The risks and benefits of the procedure as well as a full d escription of our services here and current unavailability of surgical backup were fully explained to the patient and/or their significant other prior to the catheterization. The Timeout was completed, verifying the correct patient and procedure. The patient's procedural site was prepped and draped in the usual fashion. Local anesthetic was given subcutaneously to right groin region with Lidocaine 2%. Using a modified Seldinger technique, arterial access was obtained via the right femoral artery, a 4 Fr sheath was inserted Venous access was obtained via the right femoral vein, a 7Fr sheath was insert ed. A 7Fr thermal dilution catheter was inserted and right heart pressures were recorded, it was then advanced to PA position for cardiac outputs. Thermal dilution cardiac outputs were then recorded. O2 saturations were then obtained. Left Ventriculography was performed in CABRERA projection using a 4 Fr. Pigtail catheter. LV to AO pullback pressures were then recorded. Simultaneous pressures were then re corded. The Thermal dilution catheter was then removed. Left Coronary Artery selective angiography wa s performed in multiple views using a 4 Fr. JL5 catheter. Right Coronary Artery selective angiography was then performed in multiple views using a 4 Fr. 3DRC catheter.The arterial sheath was pulled and manual compression applied until hemostasis is achieved.. The venous sheath was then pulled and manua l compression applied until hemostasis achieved CORONARY ANGIOGRAPHY DOMINANCE: Right Dominant LEFT HEART ASSESSMENT Left Ventricular Ejection Fraction: by LV Gram 45-50 % Anterior Hypokinesis - Moderate Normal Left Ventricular End Diastolic Pressure Depressed Left Ventricular systolic function RIGHT HEART ASSESSMENT Thermal CO: 4.62 Thermal CI: 2.21 Kumar CO: 5.32 Kumar CI: 2.55 PW: 03/07 9 PA: 19/12 15 RV: 23/06 8 RA: 09/02 4 PVR: 104 SVR: 1351 Right Heart pressures - normal LEFT MAIN: 20 % Stenosis LEFT ANTERIOR DECENDING ARTERY: MID LAD: Previously placed stent is patent DIAGONAL 1: Proximal - 50 % Stenosis DIAGONAL 2: Ostial - 80 % Stenosis, very small, no change since previous cath. CIRCUMFLEX ARTERY: Mild luminal irregularities less than 30% RIGHT CORONARY ARTERY: MID RCA: Previously placed stent is patent ACUTE MARGINAL: 80 ostial; too small for PCI. % Stenosis COMPLICATIONS No Complications PROCEDURE MEDICATIONS Versed 1 mg IV Versed 1 mg IV Fentanyl 25 mcg IV SUMMARY OF HEMODYNAMIC DATA Time AIR REST ECG 08:00:19 RA 09/02 (4) SV 08:18:14 RV 24/2, 8 08:18:33 PW 03/07 (9) PV 08:18:58 PA 19/12 (15) PA 08:19:24 LV 116/-17, 7 08:23:31 LV 119/-16, 8 08:23:37 LV 116/-17, 6 08:23:49 PA 14/01 (12) 08:23:49 LV 117/-17, 6 08:24:09 PW 02/05 (8) 08:24:09 LV 118/-17, 6 08:24:32 RV 23/1, 5 08:24:32 LV 117/-17, 6 08:25:07 RV 23/1, 5 08:25:07 LV 110/-17, 8 08:26:04 LV 112/-16, 8 08:26:10 LVp 110/-17, 8 08:26:15 AOp 102/67 (82) 08:26:20 AO 92/72 (82) SA 08:28:16 Type SV CO (l/m) CI (l/m/ HR Time AIR REST Thermal 52.50 4.62 2.21 88 08:00:19 Kumar 60.50 5.32 2.55 88 08:00:19 Label % O2 Pres/Loc Time AIR REST AO 93 PV 08:30:43 PA 63 PA 08:30:52 Signed By Jc Luna MD On 06/22/2017 08:49:55 Jc Luna MD
[2017-06-22] MEDS: Ranolazine 500 MG Tablet 1000 MG PO (10:53)
[2017-06-22] MEDS: Cyanocobalamin 500 MCG Tablet 1000 MCG PO (10:53)
[2017-06-22] MEDS: Pyridoxine HCl 100 MG Tablet PO (10:53)
[2017-06-22] MEDS: Magnesium Oxide 400 MG Tablet 800 MG PO (10:54)
[2017-06-22] MEDS: Folic Acid 1 MG Tablet PO (10:55)
[2017-06-22] MEDS: HYDROCHLOROTHIAZIDE 12.5 MG CAPSULE PO (10:55)
[2017-06-22 12:11] LABS: Bedside Glucose 219 mg/dL (70-110)
[2017-06-22] MEDS: 0.9% Normal Saline 1,000 ML 150 ML IV (12:15)
--- NOTE | 2017-06-22 12:30 | PN_ITS ---
Patient Problems: Active and Suspected Problems Chest pain (Acute) Subjective: Still with chest pain. Upset that the heart cath was actually negative. Vitals/I&O's: Vital Signs Temp Pulse Resp BP Pulse Ox 35.8 C L 90 16 133/95 H 98 06/22/17 10:00 06/22/17 11:00 06/22/17 11:00 06/22/17 11:00 06/22/17 11:00 Oxygen Flow Rate 2 Oxygen Delivery Method Room Air Weight: 97.522 kg Body Mass Index (BMI) 33.6 Intake and Output for Last 24 Hours 06/20/17 06/21/17 06/22/17 23:59 23:59 23:59 Intake Total 1000 / 1000 270 / 270 Output Total 0 / 0 Balance 1000 / 1000 270 / 270 General: Alert, No apparent distress HEENT: Atraumatic, Normocephalic Neck: No Nodes, Thyroid Normal Size and Texture Lungs: Clear to auscultation, Normal air movement, No rhonchi, No wheeze Cardiovascular: Regular rate, Regular Rhythm, Normal S1, Normal S2, No murmurs Abdomen: Bowel Sounds Present, Soft, Non Tender, Non-Distended Extremities: No edema, No Calf Tenderness Laboratory Results 06/21/17 13:10: Troponin I < 0.02 06/21/17 14:23: POC Glucose 260 H 06/21/17 18:26: POC Glucose 263 H 06/21/17 21:33: POC Glucose 272 H 06/22/17 03:20: Urine Test Negative 06/22/17 03:20: Urine Color Yellow, Urine Clarity Sl. Cloudy, Urine pH 5.0, Ur Specific [place] 1.020, Urine Protein 15 H, Urine Glucose (UA) 1000 H, Urine Ketones 5 H, Urine Occult Blood 250 H, Urine Nitrite Negative, Urine Bilirubin Negative, Urine Urobilinogen Normal, Ur Leukocyte Esterase 25 H, Urine RBC 5-10 SEEN, Urine WBC 5-10 SEEN, Ur Squamous Epith Cells 5-10 SEEN, Ur Transition Epith Cell 0 SEEN, Urine Bacteria RARE, Urine Mucus 0 SEEN 06/22/17 04:41: WBC 5.9, RBC 4.25, Hgb 12.8, Hct 37.8, MCV 88.9, MCH 30.1, MCHC 33.9, RDW 12.6, RDW Differential 40.5, Plt Count 213, MPV 9.9, Immature Gran % ( Auto) 0.200, Neut % (Auto) 75.6 H, Lymph % (Auto) 20.2, [place] % (Auto) 3.1, Eos % (Auto) 0.7, Baso % (Auto) 0.2, Absolute Neuts (auto) 4.5, Absolute Lymphs ( auto) 1.19, Total Counted Not Reportable 06/22/17 04:41: PT 13.1, INR 1.0, APTT 25.9 06/22/17 04:41: Sodium 137, Potassium 4.2, Chloride 102, Carbon Dioxide 25.0, Anion Gap 10, BUN 15, Creatinine 0.65, Estim Creat Clear Calc 116.36, Est GFR ( MDRD) Af Amer 133, Est GFR (MDRD) Non-Af 110, BUN/Creatinine Ratio 23.2 H, Glucose 272 H, Calcium 8.1 L, Triglycerides 125, Cholesterol 124, LDL Cholesterol 58, VLDL Cholesterol 25, HDL Cholesterol 41 06/22/17 06:59: POC Glucose 192 H 06/22/17 08:22: Specimen Type ART, pH 7.39, Bicarbonate Actual 20.7 L, POC Total CO2 22, Base Excess -4 L, O2 Saturation 63 L, ABG pCO2 34.1 L, ABG pO2 33 L* 06/22/17 08:29: Specimen Type ART, pH 7.38, Bicarbonate Actual 20.2 L, POC Total CO2 21, Base Excess -5 L, O2 Saturation 93 L, ABG pCO2 34.5 L, ABG pO2 69 L 06/22/17 12:02: POC Glucose 219 H Current Medications Acetaminophen (Tylenol) 325 - 650 mg PO Q6H PRN PRN PRN Reason: Pain Amitriptyline HCl (Elavil) 25 mg PO QHS [facility] Last Admin: 06/21/17 21:35 Dose: 25 mg [facility] ([facility], [facility]) [facility] Admin: 06/22/17 06:06 Dose: 81 mg Atorvastatin Calcium (Lipitor) 80 mg PO QHS [facility] Last Admin: 06/21/17 21:36 Dose: 80 mg Bupropion HCl (Wellbutrin Xl) 300 mg PO DAILY [facility] Last Admin: 06/22/17 10:54 Dose: 300 mg Clopidogrel Bisulfate (Plavix) 75 mg PO DAILY [facility] Last Admin: 06/22/17 06:07 Dose: 75 mg Cyanocobalamin (Vitamin B12) 1,000 mcg PO DAILY@0800 [facility] Last Admin: 06/22/17 10:53 Dose: 1,000 mcg Doxazosin Mesylate (Cardura) 4 mg PO QHS [facility] Last Admin: 06/21/17 21:35 Dose: 4 mg Folic Acid (Folic Acid) 1 mg PO DAILY@0800 [facility] Last Admin: 06/22/17 10:55 Dose: 1 mg Hydrochlorothiazide (Hydrochlorothiazide) 12.5 mg PO DAILY [facility] Last Admin: 06/22/17 10:55 Dose: 12.5 mg Sodium Chloride () 1,000 mls @ 0 mls/hr IV .Q0M [facility] PRN Reason: KVO Sodium Chloride () 1,000 mls @ 150 mls/hr IV .Q6H40M [facility] Stop: 06/22/17 16:15 Insulin Aspart (Novolog Flexpen (Bkc)) 0 units SC TIDCM [facility] PRN Reason: Protocol Last Admin: 06/22/17 10:08 Dose: Not Given Insulin Aspart (Novolog Flexpen (Bkc)) 10 units SC TIDCM [facility] Last Admin: 06/22/17 10:08 Dose: Not Given Insulin Detemir (Levemir (Bkc)) 35 units SC BID [facility] Last Admin: 06/21/17 21:36 Dose: 35 units Isosorbide Mononitrate (Imdur) 30 mg PO DAILY [facility] Last Admin: 06/22/17 06:07 Dose: 30 mg Losartan Potassium (Cozaar) 50 mg PO DAILY [facility] Last Admin: 06/22/17 06:07 Dose: 50 mg Magnesium Hydroxide (Milk Of Magnesia) 30 ml PO DAILY PRN PRN Reason: Constipation Magnesium Oxide (Mag-Ox 400) 800 mg PO DAILY [facility] Last Admin: 06/22/17 10:54 Dose: 800 mg Metoprolol Tartrate (Lopressor (Beta Lizbeth)) 25 mg PO BID [facility] Last Admin: 06/22/17 10:52 Dose: Not Given Nitroglycerin (Nitrostat) 0.4 mg SUBLINGUAL Q5M PRN PRN Reason: CHEST PAIN Last Admin: 06/21/17 20:57 Dose: 0.4 mg Ondansetron HCl (Zofran) 4 mg IV Q8H PRN PRN PRN Reason: NAUSEA Oxycodone HCl (Oxyir) 5 - 10 mg PO Q4H PRN PRN PRN Reason: MOD-SEVERE PAIN (4-10/10) Last Admin: 06/21/17 20:40 Dose: 10 mg Pregabalin (Lyrica) 250 mg PO QHS [facility] Last Admin: 06/21/17 21:41 Dose: 250 mg Pyridoxine HCl (Vitamin B-6) 100 mg PO DAILY@0800 [facility] Last Admin: 06/22/17 10:53 Dose: 100 mg Ranolazine (Ranexa) 1,000 mg PO BID [facility] Last Admin: 06/22/17 10:53 Dose: 1,000 mg Sertraline HCl (Zoloft) 100 mg PO DAILY [facility] Last Admin: 06/22/17 10:56 Dose: Not Given Sodium Chloride () 5 - 30 ml IV UD PRN PRN Reason: SALINE FLUSH Last Admin: 06/22/17 06:08 Dose: 10 ml Assessment/Plan Active and Suspected Problems Chest pain (Acute) 1. Chest pain * EKG, initial troponin, d-dimer, chest x-ray are all unremarkable. * Patient does have known coronary artery disease and she states that this is very similar to that. * Patient did have a normal heart catheterization in November of last year. * Given the patient's symptoms, and her history I will consult cardiology for further input and evaluation. In the meantime we will cycle troponins. Concern is that this may be another anxiety episode that the patient was felt to have had back in November or possibly some other issue,. Apparently there was some concern about patient requesting stronger pain medications in the emergency room. * Left heart catheterization was negative * That was noted that there were some small vessels that were not amenable to stenting or angioplasty that may be potentially causing her chest pain. Other possibilities could be anxiety and panic attacks. * Patient wishes to follow pulmonology as well I think that is fine just rule out any other process 2. Diabetes mellitus type I * Appears to be uncontrolled but will continue the patient on her home regimen and monitor. Patient is not in diabetic ketoacidosis at this time. 3. Deep prophylaxis with Lovenox.
--- NOTE | 2017-06-22 12:38 | PCM.DC ---
- Discharge Diagnoses Current Active Problems: Current Active and Chronic Problems Chest pain (Acute) You will use the following diet at home:: Cardiac Your food should be the consistency of: Regular Your liquids should be the consistency of: Regular/Thin Discharge Activity: Return to Normal Activity Allergies/Adverse Reactions: Allergies Iodinated Contrast- Oral and IV Dye [Iodinated Contrast Media - IV Dye] Allergy (Verified 06/21/17 06:26) Hives nitroglycerin [From Nitro-Bid] Allergy (Verified 06/21/17 06:) DROPS HR LOW BP Penicillins Allergy (Verified 06/21/17 06:) Rash Sulfa (Sulfonamide Antibiotics) Allergy (Verified 06/21/17 06:) Hives Beta-Blockers (Beta-Adrenergic Bloc Adverse Reaction (Verified 06/21/17:) Low blood pressure gabapentin [From Neurontin] Adverse Reaction (Verified 06/21/17 06:) Upset Stomach metformin Adverse Reaction (Verified 06/21/17 06:) Upset Stomach nitroglycerin IV Allergy (Uncoded 06/21/17 06:) DROPS HR nitro drips per pt will drop bp quick and will bottom out Medications to take at Discharge Aspirin [Aspirin, Baby] 81 mg PO DAILY 03/04/15 Insulin Glargine [Lantus SoloStar Pen] 35 units SC BID 03/04/15 Magnesium Oxide [Mag-Ox 400] 800 mg PO DAILY 03/04/15 Insulin Aspart [Novolog Vial] 10 unit SQ TIDCM 11/24/15 Sertraline HCl [Zoloft] 100 mg PO DAILY 11/25/15 Nitroglycerin [Nitrostat] 0.4 mg SUBLINGUAL Q5M PRN #1 bottle 11/26/15 Insulin Aspart [Novolog Flexpen] See Protocol SC TIDCM 03/20/16 Pregabalin [Lyrica] 250 mg PO QHS 01/22/17 Atorvastatin Calcium [Lipitor] 80 mg PO QHS 04/26/17 Clopidogrel Bisulfate [Plavix] 75 mg PO DAILY 04/26/17 Cyanocobalamin [Vitamin B12] 1,000 mcg PO DAILY@0800 04/26/17 Folic Acid 1 mg PO DAILY@0800 04/26/17 Isosorbide Mononitrate [Imdur] 30 mg PO DAILY 04/26/17 Pyridoxine HCl [Vitamin B-6] 100 mg PO DAILY@0800 04/26/17 ranolazine ER 1,000 mg tablet,extended release,12 hr 1,000 mg PO BID #60 tab 05/29/17 Amitriptyline HCl [Elavil] 25 mg PO QHS 06/21/17 BuPROPion (XL) [Wellbutrin Xl] 300 mg PO DAILY 06/21/17 Prazosin HCl [Minipress] 5 mg PO DAILY 06/21/17 Acetaminophen [Tylenol Tablet] 500 mg PO Q4H PRN tablet 06/22/17 Hydrochlorothiazide 12.5 mg PO DAILY #30 cap 06/22/17 Losartan Potassium [Cozaar] 50 mg PO DAILY #30 tab 06/22/17 Metoprolol Tartrate [Lopressor (beta zita)] 25 mg PO BID #60 tab 06/22/17 Oxycodone [Oxyir] 5 mg PO Q6H PRN 3 Days #12 tablet 06/22/17 The following prescriptions were given: Hydrochlorothiazide 12.5 mg PO DAILY #30 cap Losartan Potassium [Cozaar] 50 mg PO DAILY #30 tab Metoprolol Tartrate [Lopressor (beta zita)] 25 mg PO BID #60 tab Oxycodone [Oxyir] 5 mg PO Q6H PRN 3 Days #12 tablet PRN Reason: Mod-Severe Pain (-02/06) Primary Care Physician: Alka Pringle [Primary Care Provider] - Within 2 Weeks Please Follow Up With: Yong Ma MD When: 2-4 weeks Please Follow Up With: Alka Foley NP-C - Pulmonary for shortness of breath. When: 2-4 weeks Please Follow Up With: Psychology When: 1-2 weeks Proposed Discharge Date: 06/22/17
--- NOTE | 2017-06-22 12:40 | PCM.DC.SUM ---
Discharge Date and Diagnosis - Problem List Patient Problems: Active and Suspected Problems Chest pain (Acute) Date of Admission: 06/21/17 Date of Discharge: 06/22/17 - Primary Discharge Diagnosis Active and Suspected Problems Chest pain (Acute) - Secondary Discharge Diagnosis Chronic Problems Syncope (Chronic) Obesity (BMI 30.0-34.9) (Chronic) Anxiety and depression (Chronic) Hyperlipidemia (Chronic) Type I diabetes mellitus (Chronic) Coronary artery disease (Chronic) Status post stents Hypertension (Chronic) Chronic pain (Chronic) Hospital Course and Treatment Imaging Results: Clinical Impression(s) from Imaging Studies Chest X-Ray 06/21/17 06:26 IMPRESSION: Normal x-ray examination of the chest. Electronically Signed: Dorys Greene MD at 7:18 EST Tel , Service support , Operations: None Procedures: 2-D Echocardiogram, Cardiac catheterization, Stress test Summary of Care Provided: The patient is a 37 year old F is with chest pain. Patient stated this was similar to when she had a heart attack in 2013. Given the patient's history and frequent heart catheterizations cardiology was consulted. Stress test was performed but was normal with the exception of the area of previous ischemia. Cardiogram was performed that showed an ejection fraction of 50%. He did have a heart catheterization that showed nonobstructive coronary arteries. Segmented LV systolic dysfunction. The patient chest pains patient may have some mild distal disease that is not amenable to intervention or angioplasty. Other possibilities could be anxiety and panic attacks which patient does have known history of. Patient also complains of this bubbling sensation in her chest but I recommend patient follow-up with pulmonology and information is provided to her. Patient will be discharged. Patient will receive a short course of oxycodone to help with her pain also instructed to take Tylenol as well. [] Discharge Diet: No Restrictions Discharge Activity: Return to Normal Activity Call your doctor if you observe: Fever of 101 or Higher Home Medications: Medications to take at Discharge Aspirin [Aspirin, Baby] 81 mg PO DAILY 03/04/15 Insulin Glargine [Lantus SoloStar Pen] 35 units SC BID 03/04/15 Magnesium Oxide [Mag-Ox 400] 800 mg PO DAILY 03/04/15 Insulin Aspart [Novolog Vial] 10 unit SQ TIDCM 11/24/15 Sertraline HCl [Zoloft] 100 mg PO DAILY 11/25/15 Nitroglycerin [Nitrostat] 0.4 mg SUBLINGUAL Q5M PRN #1 bottle 11/26/15 Insulin Aspart [Novolog Flexpen] See Protocol SC TIDCM 03/20/16 Pregabalin [Lyrica] 250 mg PO QHS 01/22/17 Atorvastatin Calcium [Lipitor] 80 mg PO QHS 04/26/17 Clopidogrel Bisulfate [Plavix] 75 mg PO DAILY 04/26/17 Cyanocobalamin [Vitamin B12] 1,000 mcg PO DAILY@0800 04/26/17 Folic Acid 1 mg PO DAILY@0800 04/26/17 Isosorbide Mononitrate [Imdur] 30 mg PO DAILY 04/26/17 Pyridoxine HCl [Vitamin B-6] 100 mg PO DAILY@0800 04/26/17 ranolazine ER 1,000 mg tablet,extended release,12 hr 1,000 mg PO BID #60 tab 05/29/17 Amitriptyline HCl [Elavil] 25 mg PO QHS 06/21/17 BuPROPion (XL) [Wellbutrin Xl] 300 mg PO DAILY 06/21/17 Prazosin HCl [Minipress] 5 mg PO DAILY 06/21/17 Acetaminophen [Tylenol Tablet] 500 mg PO Q4H PRN tablet 06/22/17 Hydrochlorothiazide 12.5 mg PO DAILY #30 cap 06/22/17 Losartan Potassium [Cozaar] 50 mg PO DAILY #30 tab 06/22/17 Metoprolol Tartrate [Lopressor (beta zita)] 25 mg PO BID #60 tab 06/22/17 Oxycodone [Oxyir] 5 mg PO Q6H PRN 3 Days #12 tablet 06/22/17 Following Prescrptions Were Given to Patient: Hydrochlorothiazide 12.5 mg PO DAILY #30 cap Losartan Potassium [Cozaar] 50 mg PO DAILY #30 tab Metoprolol Tartrate [Lopressor (beta zita)] 25 mg PO BID #60 tab Oxycodone [Oxyir] 5 mg PO Q6H PRN 3 Days #12 tablet PRN Reason: Mod-Severe Pain (-02/06) Primary Care Physician: Alka Pringle [Primary Care Provider] - Within 2 Weeks Please Follow Up With: Yong Ma MD When: 2-4 weeks Please Follow Up With: Alka Foley NP-C - Pulmonary for shortness of breath. When: 2-4 weeks Please Follow Up With: Psychology When: 1-2 weeks Disposition: Home Minutes spent on discharge:: 35 Patient Condition:: Fair Meaningful Use Info Meaningful Use Diagnoses (Choose all that apply): None applicable Code Visit Inpatient E&M: 14554 Disch Hosp
--- NOTE | 2017-06-22 12:49 | DS.PCM_ITS ---
Discharge Date and Diagnosis - Problem List Patient Problems: Active and Suspected Problems Chest pain (Acute) Date of Admission: 06/21/17 Date of Discharge: 06/22/17 - Primary Discharge Diagnosis Active and Suspected Problems Chest pain (Acute) - Secondary Discharge Diagnosis Chronic Problems Syncope (Chronic) Obesity (BMI 30.0-34.9) (Chronic) Anxiety and depression (Chronic) Hyperlipidemia (Chronic) Type I diabetes mellitus (Chronic) Coronary artery disease (Chronic) Status post stents Hypertension (Chronic) Chronic pain (Chronic) Hospital Course and Treatment Imaging Results: Clinical Impression(s) from Imaging Studies Chest X-Ray 06/21/17 06:26 IMPRESSION: Normal x-ray examination of the chest. Electronically Signed: Dorys Greene MD at 7:18 EST Tel , Service support , Operations: None Procedures: 2-D Echocardiogram, Cardiac catheterization, Stress test Summary of Care Provided: The patient is a 37 year old F is with chest pain. Patient stated this was similar to when she had a heart attack in 2013. Given the patient's history and frequent heart catheterizations cardiology was consulted. Stress test was performed but was normal with the exception of the area of previous ischemia. Cardiogram was performed that showed an ejection fraction of 50%. He did have a heart catheterization that showed nonobstructive coronary arteries. Segmented LV systolic dysfunction. The patient chest pains patient may have some mild distal disease that is not amenable to intervention or angioplasty. Other possibilities could be anxiety and panic attacks which patient does have known history of. Patient also complains of this bubbling sensation in her chest but I recommend patient follow-up with pulmonology and information is provided to her. Patient will be discharged. Patient will receive a short course of oxycodone to help with her pain also instructed to take Tylenol as well. [] Discharge Diet: No Restrictions Discharge Activity: Return to Normal Activity Call your doctor if you observe: Fever of 101 or Higher Home Medications: Medications to take at Discharge Aspirin [Aspirin, Baby] 81 mg PO DAILY 03/04/15 Insulin Glargine [Lantus SoloStar Pen] 35 units SC BID 03/04/15 Magnesium Oxide [Mag-Ox 400] 800 mg PO DAILY 03/04/15 Insulin Aspart [Novolog Vial] 10 unit SQ TIDCM 11/24/15 Sertraline HCl [Zoloft] 100 mg PO DAILY 11/25/15 Nitroglycerin [Nitrostat] 0.4 mg SUBLINGUAL Q5M PRN #1 bottle 11/26/15 Insulin Aspart [Novolog Flexpen] See Protocol SC TIDCM 03/20/16 Pregabalin [Lyrica] 250 mg PO QHS 01/22/17 Atorvastatin Calcium [Lipitor] 80 mg PO QHS 04/26/17 Clopidogrel Bisulfate [Plavix] 75 mg PO DAILY 04/26/17 Cyanocobalamin [Vitamin B12] 1,000 mcg PO DAILY@0800 04/26/17 Folic Acid 1 mg PO DAILY@0800 04/26/17 Isosorbide Mononitrate [Imdur] 30 mg PO DAILY 04/26/17 Pyridoxine HCl [Vitamin B-6] 100 mg PO DAILY@0800 04/26/17 ranolazine ER 1,000 mg tablet,extended release,12 hr 1,000 mg PO BID #60 tab Amitriptyline HCl [Elavil] 25 mg PO QHS 06/21/17 BuPROPion (XL) [Wellbutrin Xl] 300 mg PO DAILY 06/21/17 Prazosin HCl [Minipress] 5 mg PO DAILY 06/21/17 Acetaminophen [Tylenol Tablet] 500 mg PO Q4H PRN tablet 06/22/17 Hydrochlorothiazide 12.5 mg PO DAILY #30 cap 06/22/17 Losartan Potassium [Cozaar] 50 mg PO DAILY #30 tab 06/22/17 Metoprolol Tartrate [Lopressor (beta ztia)] 25 mg PO BID #60 tab 06/22/17 Oxycodone [Oxyir] 5 mg PO Q6H PRN 3 Days #12 tablet 06/22/17 Following Prescrptions Were Given to Patient: Hydrochlorothiazide 12.5 mg PO DAILY #30 cap Losartan Potassium [Cozaar] 50 mg PO DAILY #30 tab Metoprolol Tartrate [Lopressor (beta zita)] 25 mg PO BID #60 tab Oxycodone [Oxyir] 5 mg PO Q6H PRN 3 Days #12 tablet PRN Reason: Mod-Severe Pain (-02/06) Primary Care Physician: Alka Pringle [Primary Care Provider] - Within 2 Weeks Please Follow Up With: Yong Ma MD When: 2-4 weeks Please Follow Up With: Alka Foley NP-C - Pulmonary for shortness of breath. When: 2-4 weeks Please Follow Up With: Psychology When: 1-2 weeks Disposition: Home Minutes spent on discharge:: 35 Patient Condition:: Fair Meaningful Use Info Meaningful Use Diagnoses (Choose all that apply): None applicable Code Visit Inpatient E&M: 80506 Disch Hosp
== END 2017-06-22 17:00 | disposition home or self-care (01) ==
LOC: ED 07:20 → ICU 08:23
PROVIDERS: Internal Medicine Cardiovascular Disease; Emergency Provider Emergency Medicine; Family Provider Family Medicine; PCP Family Medicine
DX: R07.89 Other chest pain (principal); I10 Essential (primary) hypertension; I25.10 Atherosclerotic heart disease of native coronary artery without angina pectoris; E78.5 Hyperlipidemia, unspecified; F41.9 Anxiety disorder, unspecified; F32.9 Major depressive disorder, single episode, unspecified; E10.9 Type 1 diabetes mellitus without complications; G89.29 Other chronic pain; E66.9 Obesity, unspecified; R06.02 Shortness of breath; I25.2 Old myocardial infarction; Z68.33 Body mass index [BMI] 33.0-33.9, adult; Z95.5 Presence of coronary angioplasty implant and graft; Z71.3 Dietary counseling and surveillance; Z79.899 Other long term (current) drug therapy; Z79.4 Long term (current) use of insulin; Z79.02 Long term (current) use of antithrombotics/antiplatelets; M79.7 Fibromyalgia
CPT/HCPCS: 71046; 80048; 80061; 81001; 81025; 82803; 82962; 84484; 85025; 85379; 85610; 85652; 85730; 86140; 93005; 93017; 93306; 93350; 93460; 96361; 96365; 96366; 96375; 96376; 99152; 99153; 99218; 99285; J7030; Q9957; A4216; C1751; C1769; C1894; C8928; C8929; G0378; J3490; Q9967

== ENCOUNTER 2017-08-10 00:05 | Observation (INO) | payer MEDICAID, SELFPAY ==
[2017-08-10] VITALS (9 sets, daily range): BP systolic 107–120; BP diastolic 51–82; PULSE 83–95; RESP 16–18; TEMP 36.7; O2SAT 97–100; BMI 33.7
--- NOTE | 2017-08-10 00:37 | HP.PCM_ITS ---
Problem List (1) Abdominal pain Status: Acute Qualifiers: Abdominal location: generalized Qualified Code(s): R10.84 - Generalized abdominal pain (2) Constipation Status: Acute Qualifiers: Constipation type: unspecified constipation type Qualified Code(s): K59.00 - Constipation, unspecified (3) Chest pain Status: Acute Qualifiers: Chest pain type: unspecified Qualified Code(s): R07.9 - Chest pain, unspecified (4) Obesity (BMI 30.0-34.9) Status: Chronic (5) Anxiety and depression Status: Chronic (6) Hyperlipidemia Status: Chronic Qualifiers: Hyperlipidemia type: unspecified Qualified Code(s): E78.5 - Hyperlipidemia , unspecified (7) Type I diabetes mellitus Status: Chronic Qualifiers: Diabetes mellitus complication status: with unspecified complications Qualified Code(s): E10.8 - Type 1 diabetes mellitus with unspecified complications (8) Coronary artery disease Status: Chronic Qualifiers: Coronary Disease-Associated Artery/Lesion type: unspecified vessel or lesion type [place] vs. transplanted heart: unspecified whether [place] or transplanted heart Associated angina: angina presence unspecified Qualified Code(s): I25.10 - Atherosclerotic heart disease of [place] coronary artery without angina pectoris Comment: Status post stents (9) Hypertension Status: Chronic Qualifiers: Hypertension type: essential hypertension (10) Chronic pain Status: Chronic Qualifiers: Chronic pain type: chronic pain syndrome History of Present Illness Date of Admission: 08/10/17 Chief Complaint: Abdominal pain, Constipation, Chest pain The patient is a 37 y/o Fw/ PMH: ?MTHFR gene mutation, CAD s/p PCI, HTN, HLD, Diabetes mellitus type I, Obesity, Anxiety and Depression, Chronic Pain Syndrome who presents to the [facility] ED on 08/10/17 from [facility] [place] with complaints of recent serial ED presentation w/ abdominal pain, initially Dx UTI on 08/04/17 placed on keflex at that time but follow-up UCx without marked growth , additional evaluation on 08/06/[address] A/P without acute findings aside notable constipation and follow-up evaluation on 08/09/17 with ongoing abdominal generalized discomfort, nausea with emesis, poor oral intake and no BM x 1 week. She also notes intermittent substernal chest discomfort without radiation and without associated dyspnea or diaphoresis x 1 week with onset abdominal discomfort. She has history of CAD s/p PCI but has had recent unremarkable heart catheterization 05/2017. OSH requested transfer to [facility] for further evaluation initially secondary to her chest pain and also for ongoing abdominal discomfort complaints. Additional ED evaluation at OSH included unremarkable CBC , BMP w/ hyperglycemia BS 300 range, trop normal, EKG without acute findings, BNP normal, lipase normal level, CXR without acute process, GBUS w/ mild distention without stones of pericholecystic fluid noted. Past Medical History Past Medical History (Chronic Problems): Chronic Problems Syncope (Chronic) Obesity (BMI 30.0-34.9) (Chronic) Anxiety and depression (Chronic) Hyperlipidemia (Chronic) Type I diabetes mellitus (Chronic) Coronary artery disease (Chronic) Status post stents Hypertension (Chronic) Chronic pain (Chronic) Allergies Iodinated Contrast- Oral and IV Dye [Iodinated Contrast Media - IV Dye] Allergy (Verified 06/21/17 06:26) Hives nitroglycerin [From Nitro-Bid] Allergy (Verified 06/21/17 06:26) DROPS HR LOW BP Penicillins Allergy (Verified 06/21/17 06:26) Rash Sulfa (Sulfonamide Antibiotics) Allergy (Verified 06/21/17 06:26) Hives Beta-Blockers (Beta-Adrenergic Bloc Adverse Reaction (Verified 06/21/17 06:26) Low blood pressure gabapentin [From Neurontin] Adverse Reaction (Verified 06/21/17 06:26) Upset Stomach metformin Adverse Reaction (Verified 06/21/17 06:26) Upset Stomach nitroglycerin IV Allergy (Uncoded 06/21/17 06:26) DROPS HR nitro drips per pt will drop bp quick and will bottom out Home Medications: Ambulatory Orders Medication Instructions Recorded Aspirin [Aspirin, Baby] 81 mg PO DAILY 03/04/15 Insulin Glargine [Lantus SoloStar 35 units SC BID 03/04/15 Pen] Magnesium Oxide [Mag-Ox 400] 800 mg PO DAILY 03/04/15 Insulin Aspart [Novolog Vial] 10 unit SQ TIDCM 11/24/15 Sertraline HCl [Zoloft] 100 mg PO DAILY 11/25/15 Nitroglycerin [Nitrostat] 0.4 mg SUBLINGUAL Q5M PRN #1 bottle 11/26/15 Insulin Aspart [Novolog Flexpen] See Protocol SC TIDCM 03/20/16 Pregabalin [Lyrica] 250 mg PO QHS 01/22/17 Atorvastatin Calcium [Lipitor] 80 mg PO QHS 04/26/17 Clopidogrel Bisulfate [Plavix] 75 mg PO DAILY 04/26/17 Cyanocobalamin [Vitamin B12] 1,000 mcg PO DAILY@0800 04/26/17 Folic Acid 1 mg PO DAILY@0800 04/26/17 Isosorbide Mononitrate [Imdur] 30 mg PO DAILY 04/26/17 Pyridoxine HCl [Vitamin B-6] 100 mg PO DAILY@0800 04/26/17 ranolazine ER 1,000 mg 1,000 mg PO BID #60 tab 05/29/17 tablet,extended release,12 hr Prazosin HCl [Minipress] 5 mg PO DAILY 06/21/17 buPROPion XL [Wellbutrin Xl] 300 mg PO DAILY 06/21/17 Hydrochlorothiazide 12.5 mg PO DAILY #30 cap 06/22/17 Losartan Potassium [Cozaar] 50 mg PO DAILY #30 tab 06/22/17 Amitriptyline HCl 50 mg PO QHS 08/10/17 Lorazepam [Ativan] 0.5 mg PO TID PRN PRN 08/10/17 Metoprolol Tartrate 25 mg PO DAILY 08/10/17 Surgical History: - - PCI ?2, bilateral tubal ligation, back surgery with L4-L5 rods and screws in place, tonsillectomy. 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 Denies: Chills, Fever, Weight Change HEENT: Denies: Head Aches, Sinus Congestion, Sinus Drainage Cardiovascular: Reports: Chest Pain. Denies: Palpitations Respiratory: Denies: Cough, Shortness of breath at rest, Sputum production Gastrointestinal: Reports: Abdominal Pain, Constipation, Nausea, Vomiting Genitourinary: Denies: Dysuria Musculoskeletal: Reports: Back Pain. Denies: Joint Pain, Joint Tenderness Skin: Denies: Rash, Wounds Neurological: Denies: Numbness, Tingling, Focal weakness Psychiatric: Denies: Anxiety, Depression, Homicidal Ideations, Suicidal Ideations Hematologic/ Lymphatic: Denies: Easy Bruising, Easy Bleeding VTE Information - Inpt Only VTE Present on Admission: No VTE Mechan Device Prophylaxis: SCD's VTE Pharm Prophylaxis ordered?: Yes Patient Problems: Active and Suspected Problems Abdominal pain (Acute) Constipation (Acute) Subjective: Seated upright in bed, fatigued appearance, NAD. Objective: Physical Examination: General: awake, alert, oriented x 3 and cooperative, seated upright in the bed in no apparent distress. Skin: normal color, turgor, no icterus, cyanosis. HEENT: AT/NC, EOMI, PERRLA, moderately dry MM, no carotid bruits or JVD noted. Lungs: CTA bilaterally, moderate effort, mild decrease BL bases, no rales, ronchi or wheezing. Heart: Regular rate and rhythm; no gallop, rub audible. Abdomen: soft, obese, generalized discomfort with palpation, mild distention, mildly hyperactive BS, no HSM. Extremities: no cyanosis, clubbing, or edema. Neurological: patient awake, alert, oriented x 3; cognitive function intact; pupils equally reactive to light and accomodation; cranial nerves II-XII grossly normal, moving all 4 extremities, no focal deficits, strength moderately globally decreased secondary to acute presentation. Psychiatric: affect appears fatigued, no acute evidence of depressive or anxiety feelings. - Physical Exam Vital Signs Temp Pulse Resp BP Pulse Ox 98.0 F 89 16 110/73 100 08/10/17 00:19 08/10/17 00:19 08/10/17 00:19 08/10/17 00:19 08/10/17 00:19 Oxygen Delivery Method Room Air Weight: 215 lb 4 oz Body Mass Index (BMI) 33.7 Finger Stick Blood Glucose 294 Laboratory Tests Past 24 Hrs 08/10/17 08/10/17 00:23 00:23 Sodium Pending Potassium Pending Chloride Pending Carbon Dioxide Pending Anion Gap Pending BUN Pending Creatinine Pending Est GFR (MDRD) Af Amer Pending Est GFR (MDRD) Non-Af Pending BUN/Creatinine Ratio Pending Glucose Pending Hemoglobin A1c Pending Calcium Pending Magnesium Pending Total Bilirubin Pending AST Pending ALT Pending Alkaline Phosphatase Pending Total Protein Pending Albumin Pending Assessment/Plan Active and Suspected Problems Abdominal pain (Acute) Constipation (Acute) The patient is a 37 y/o Fw/ PMH: ?MTHFR gene mutation, CAD s/p PCI, HTN, HLD, Diabetes mellitus type I, Obesity, Anxiety and Depression, Chronic Pain Syndrome who presents to the [facility] ED on 08/10/17 from [facility] [place] with complaints of recent serial ED presentation w/ abdominal pain, initially Dx UTI on 08/04/17 placed on keflex at that time but follow-up UCx without marked growth , additional evaluation on 08/06/[address] A/P without acute findings aside notable constipation and follow-up evaluation on 08/09/17 with ongoing abdominal generalized discomfort, nausea with emesis, poor oral intake and no BM x 1 week. (1) Acute Abdominal Pain, Nausea and Emesis secondary to Acute Constipation: OSH CT A/P with constipation, no BM x 1 week, will admit to MS, allow clears only, PRN anti-emetics, initiate lactulose and fleetz enema as notes other earlier measures were unsuccessful, maintain on famotidine, repeat AM CBC, BMP, avoid narcotic therapy given currently presentation, encouraged OOB, dukes walking to assist with constipation. Denies using any current narcotic therapy. No UDS performed per OSH ED prior to regimen administration. (2) Hx CVA: Prior incidentally noted Lacunar Infarct Left Thalamus, maintain on asa, plavix, BP regimen, statin, DM regimen. (3) Diabetes mellitus type I: Continue home insulin regimen, clears with ADAT to ADA diet, accu checks w/ ISS. HgBA1c pending. Nutrition consulted. (4) CAD: s/p PCI, continue home asa, plavix, BB, statin regimen. Given ongoing chest discomfort, likely secondary to #1, will obtain EKG and cycle cardiac enzymes, recent unremarkable heart catheterization 05/2017 as noted. (5) Hyperlipidemia: Continue home statin regimen. (6) Hypertension: Continue home regimen including HCTZ, imdur, losartan, metoprolol, minipress PRN hydralazine. (7) Anxiety and Depression: Continue home wellbutrin, zoloft and ativan regimen. (8) Chronic Pain Syndrome: Continue elavil, lyrica. Denies any current narcotic therapy. Her frequent admissions are concerning for seeking behavior. (9) Obesity: Weight loss and lifestyle changes encouraged, nutrition consulted. (10) ? MTHFR gene mutation: Noted history prior, encourage continued evaluation per Hem/Onc. Had previously recommended vitamin B6 and vitamin B12 supplementation, currently noted vitamin B6 home supplementation. (11) Pseudoseizures: Hx prior pseudoseizures, no current seizure like activity noted per OSH ED or currently. (12) DVT prophylaxis: SCDs, lovenox. Code Visit OBSV E&M: 22057 Initial observation care L3
[2017-08-10 00:51] LABS: Hemoglobin A1c 13.7 % (4.2-6.3)
[2017-08-10 00:58] LABS: AST(SGOT) 7 U/L (15-37); Alanine Aminotransfer ALT/SGPT 16 U/L (13-56); Albumin, Serum 3.2 g/dL (3.2-5.0); Alkaline Phosphatase 64 U/L (45-117); Anion Gap 6 (5-15); BUN 11 mg/dL (7-18); BUN/Creat Ratio 17.3 RATIO (10-20); Calcium,Total 7.6 mg/dL (8.5-10.1); Chloride 106 mmol/L (98-107); Creatinine, Serum 0.64 mg/dL (0.55-1.02); EST Glomerular Filtration Rate 112 mL/min (>60); Est Glom Filt Rate - Afr Amer 136 mL/min (>60); Estimated Creatinine Clearance 118.17 ml/min; Globulin 3.1 g/dL (2.2-4.2); Glucose 208 mg/dL (74-106); Potassium 3.9 mmol/L (3.5-5.1); Protein, Total 6.3 g/dL (6.4-8.2); Sodium Level 139 mmol/L (136-145)
[2017-08-10] MEDS: Fleet Enema 1 ML RECTAL ×2 (01:09→23:15)
[2017-08-10] MEDS: Lactulose 20 GM/30 ML UDC 10 GM PO ×2 (01:43→09:26)
[2017-08-10] MEDS: 0.9% Normal Saline 1,000 ML 125 ML IV ×3 (01:45→17:29)
[2017-08-10 04:52] LABS: Absolute Lymphocyte Count 2.76 X10^3/ul (0.83-4.51); Absolute Neutrophil Count 3.7 X10^3/uL (2.0-7.7); Basophil# 0.03 X10^3/uL; Basophil% 0.4 % (0-1); Eosinophil# 0.23 X10^3/uL; Eosinophils% 3.2 % (0-5); Hematocrit 37.6 % (37-47); Hemoglobin 12.9 g/dl (12.0-15.0); Lymphocyte # 2.76 X10^3/ul (4.0); Lymphocyte % 38.2 % (19-41); Mean Corp Hgb Conc 34.3 g/gl (32-36); Mean Corpuscular Hgb 29.5 pg (27.0-32.0); Mean Platelet Vol. 9.8 fl (6.2-12.0); Monocyte# 0.51 X10^3/uL; Monocyte% 7.1 % (0-10); Neutrophil # 3.66 X10^3/uL (2.7-7.7); Neutrophil % 50.5 % (47-70); Platelet Count 219 K/mm3 (150-450); RBC Distribution Width CV 12.5 % (11.6-14.6); RBC Distribution Width SD 38.7 fl (35.1-43.9); Red Blood Count 4.37 M/mm3 (4.2-5.4); White Blood Count 7.2 K/mm3 (4.4-11.0)
[2017-08-10 04:53] LABS: POSITIVE COUNT NO; POSITIVE DIFFERENTIAL NO; POSITIVE MORPHOLOGY NO
[2017-08-10] MEDS: Ondansetron 4 MG/2 ML Vial IV ×3 (05:52→22:56)
[2017-08-10] MEDS: 0.9% NaCl Peripheral Flush Adult/Peds IV ×4 (05:52→22:57)
--- NOTE | 2017-08-10 05:55 | EKG12_ITS ---
Test Reason : AM EKG Blood Pressure : / mmHG Vent. Rate : 083 BPM Atrial Rate : 083 BPM P-R Int : 166 ms QRS Dur : 104 ms QT Int : 420 ms P-R-T Axes : 044 -10 035 degrees QTc Int : 493 ms Normal sinus rhythm Low voltage QRS (limb leads) Poor R wave progression Confirmed by CECILIA MITCHELL, YUNIOR ([id number]), science editor ELIZABETH RODRIGUEZ ([id number] on 08/21/2017 3:49:29 PM Referred By: BECKY Confirmed By:YUNIOR BROOKS MD
[2017-08-10 06:55] LABS: Bedside Glucose 206 mg/dL (70-110)
[2017-08-10] MEDS: Aspirin 81 MG TAB.CHEW PO (09:26)
[2017-08-10] MEDS: Doxazosin 4 MG Tablet PO (09:26)
[2017-08-10] MEDS: Metoprolol Tartrate 25 MG Tablet PO ×2 (09:28→22:08)
[2017-08-10] MEDS: HYDROCHLOROTHIAZIDE 12.5 MG CAPSULE PO (09:28)
[2017-08-10] MEDS: Isosorbide Mononitrate 30 MG Tablet PO (09:28)
[2017-08-10] MEDS: Enoxaparin 40 MG/0.4 ML Syringe SC (09:28)
[2017-08-10] MEDS: Losartan Potassium 50 MG Tablet PO (09:28)
[2017-08-10] MEDS: buPROPion (XL) 300 MG TABLET.XL PO (09:29)
[2017-08-10] MEDS: Sertraline 100 MG Tablet PO (09:29)
[2017-08-10] MEDS: Clopidogrel Bisulfate 75 MG Tablet PO (09:29)
[2017-08-10] MEDS: Famotidine 20 MG Tablet PO ×2 (09:29→22:06)
[2017-08-10] MEDS: Magnesium Oxide 400 MG Tablet 800 MG PO (09:29)
[2017-08-10] MEDS: Ranolazine 500 MG Tablet 1000 MG PO ×2 (09:29→22:05)
[2017-08-10 11:15] LABS: Bedside Glucose 240 mg/dL (70-110)
[2017-08-10 16:15] LABS: Bedside Glucose 230 mg/dL (70-110)
[2017-08-10] MEDS: Magnesium Hydroxide 30 ML UDC 60 ML PO (17:28)
--- NOTE | 2017-08-10 19:39 | PCM.HOSP.N ---
Hospitalist Note Patient was seen and examined. Chart was reviewed. She had minimal bowel movements since yesterday, with one week history of constipation with underling autonomic neuropathy from diabetes. Give Colace 400 mg, MOM 60 ml x 1. Reglan was ordered initially, but out of stock. Start erythromycin IV 250 mg q8h 2 hours after oral stool softener, along with fleets enema.
[2017-08-10] MEDS: proMETHazine 25 MG/ML Syringe 12.5 MG IV (20:21)
--- NOTE | 2017-08-10 20:25 | NURSING ---
Pt stated she had huge, formed bm, and feels much better. Her abdomen is no longer hard. She took a shower and now feels nauseated, gave phenergan.
[2017-08-10] MEDS: Pregabalin 50 MG Capsule 250 MG PO (22:02)
[2017-08-10] MEDS: Docusate Sodium 100 MG Capsule 200 MG PO (22:03)
[2017-08-10] MEDS: Atorvastatin Calcium 80 MG Tablet PO (22:06)
[2017-08-10] MEDS: Amitriptyline 25 MG Tablet PO (22:06)
[2017-08-11] VITALS (7 sets, daily range): BP systolic 88–107; BP diastolic 49–67; PULSE 81–99; RESP 18; TEMP 36.6–36.7; O2SAT 94–97
[2017-08-11 01:06] LABS: Bedside Glucose 207 mg/dL (70-110)
[2017-08-11] MEDS: 0.9% Normal Saline 1,000 ML 125 ML IV (02:30)
--- NOTE | 2017-08-11 05:55 | EKG12_ITS ---
Test Reason : AM EKG Blood Pressure : / mmHG Vent. Rate : 076 BPM Atrial Rate : 076 BPM P-R Int : 188 ms QRS Dur : 106 ms QT Int : 434 ms P-R-T Axes : 054 010 038 degrees QTc Int : 488 ms Normal sinus rhythm Low voltage QRS (LIMB LEADS) Poor R wave progression Anterior AR, age undetermined, cannot be excluded Confirmed by CECILIA MITCHELL, YUNIOR ([id number]), features editor ELIZABETH RODRIGUEZ ([id number] on 08/23/2017 1:58:51 PM Referred By: BECKY Confirmed By:YUNIOR BROOKS MD
[2017-08-11 06:46] LABS: Bedside Glucose 129 mg/dL (70-110)
[2017-08-11] MEDS: Famotidine 20 MG Tablet PO (08:04)
[2017-08-11] MEDS: Aspirin 81 MG TAB.CHEW PO (08:04)
[2017-08-11] MEDS: buPROPion (XL) 300 MG TABLET.XL PO (08:05)
[2017-08-11] MEDS: Sertraline 100 MG Tablet PO (08:05)
[2017-08-11] MEDS: HYDROCHLOROTHIAZIDE 12.5 MG CAPSULE PO (08:05)
[2017-08-11] MEDS: Metoprolol Tartrate 25 MG Tablet PO (08:05)
[2017-08-11] MEDS: Doxazosin 4 MG Tablet PO (08:06)
[2017-08-11] MEDS: Ranolazine 500 MG Tablet 1000 MG PO (08:06)
[2017-08-11] MEDS: Magnesium Oxide 400 MG Tablet 800 MG PO (08:06)
[2017-08-11] MEDS: Losartan Potassium 50 MG Tablet PO (08:07)
[2017-08-11] MEDS: Clopidogrel Bisulfate 75 MG Tablet PO (08:12)
[2017-08-11] MEDS: Isosorbide Mononitrate 30 MG Tablet PO (08:13)
[2017-08-11] MEDS: Ondansetron 4 MG/2 ML Vial IV (08:58)
[2017-08-11] MEDS: 0.9% NaCl Peripheral Flush Adult/Peds IV (08:58)
[2017-08-11] MEDS: Lactulose 20 GM/30 ML UDC 10 GM PO (10:17)
[2017-08-11] MEDS: Polyethylene Glycol 3350 17 GM PACKET PO (10:17)
[2017-08-11] MEDS: Docusate Sodium 100 MG Capsule 200 MG PO (10:19)
[2017-08-11] MEDS: Enoxaparin 40 MG/0.4 ML Syringe SC (10:19)
[2017-08-11 11:20] LABS: Bedside Glucose 284 mg/dL (70-110)
--- NOTE | 2017-08-11 12:32 | PCM.DC ---
- Discharge Diagnoses Current Active Problems: Current Active and Chronic Problems Abdominal pain (Acute) Constipation (Acute) You will use the following diet at home:: Calorie/Carbohydrate Controlled (specify 1200, 1400, etc) - 1999, Cardiac Your food should be the consistency of: Regular Discharge Activity: Return to Normal Activity Allergies/Adverse Reactions: Allergies Iodinated Contrast- Oral and IV Dye [Iodinated Contrast Media - IV Dye] Allergy (Verified 06/21/17 06:26) Hives nitroglycerin [From Nitro-Bid] Allergy (Verified 06/21/17 06:26) DROPS HR LOW BP Penicillins Allergy (Verified 06/21/17 06:26) Rash Sulfa (Sulfonamide Antibiotics) Allergy (Verified 06/21/17 06:26) Hives Beta-Blockers (Beta-Adrenergic Bloc Adverse Reaction (Verified 06/21/17 06:) Low blood pressure gabapentin [From Neurontin] Adverse Reaction (Verified 06/21/17 06:26) Upset Stomach metformin Adverse Reaction (Verified 06/21/17 06:26) Upset Stomach nitroglycerin IV Allergy (Uncoded 06/21/17 06:26) DROPS HR nitro drips per pt will drop bp quick and will bottom out Medications to take at Discharge Aspirin [Aspirin, Baby] 81 mg PO DAILY 03/04/15 Insulin Glargine [Lantus SoloStar Pen] 35 units SC BID 03/04/15 Magnesium Oxide [Mag-Ox 400] 800 mg PO DAILY 03/04/15 Insulin Aspart [Novolog Vial] 10 unit SQ TIDCM 11/24/15 Sertraline HCl [Zoloft] 100 mg PO DAILY 11/25/15 Nitroglycerin [Nitrostat] 0.4 mg SUBLINGUAL Q5M PRN #1 bottle 11/26/15 Insulin Aspart [Novolog Flexpen] See Protocol SC TIDCM 03/20/16 Pregabalin [Lyrica] 250 mg PO QHS 01/22/17 Atorvastatin Calcium [Lipitor] 80 mg PO QHS 04/26/17 Clopidogrel Bisulfate [Plavix] 75 mg PO DAILY 04/26/17 Cyanocobalamin [Vitamin B12] 1,000 mcg PO DAILY@0800 04/26/17 Folic Acid 1 mg PO DAILY@0800 04/26/17 Isosorbide Mononitrate [Imdur] 30 mg PO DAILY 04/26/17 Pyridoxine HCl [Vitamin B-6] 100 mg PO DAILY@0800 04/26/17 ranolazine ER 1,000 mg tablet,extended release,12 hr 1,000 mg PO BID #60 tab 05/29/17 Prazosin HCl [Minipress] 5 mg PO DAILY 06/21/17 buPROPion XL [Wellbutrin Xl] 300 mg PO DAILY 06/21/17 Hydrochlorothiazide 12.5 mg PO DAILY #30 cap 06/22/17 Losartan Potassium [Cozaar] 50 mg PO DAILY #30 tab 06/22/17 Amitriptyline HCl 50 mg PO QHS 08/10/17 Lorazepam [Ativan] 0.5 mg PO TID PRN PRN 08/10/17 Metoprolol Tartrate 25 mg PO DAILY 08/10/17 Docusate Sodium [Colace] 200 mg PO BID #60 cap 08/11/17 Metoclopramide HCl [Reglan] 5 mg PO TID #90 tab 08/11/17 Polyethylene Glycol 3350 [Miralax] 17 gm PO DAILY #30 packet 08/11/17 The following prescriptions were given: Polyethylene Glycol 3350 [Miralax] 17 gm PO DAILY #30 packet Docusate Sodium [Colace] 200 mg PO BID #60 cap Metoclopramide HCl [Reglan] 5 mg PO TID #90 tab Primary Care Physician: Alka Pringle [Primary Care Provider] - Please follow up with your Primary Care Physician in: 5 to 7 days.
--- NOTE | 2017-08-11 12:34 | PCM.DC.SUM ---
Discharge Date and Diagnosis - Problem List Patient Problems: Active and Suspected Problems Abdominal pain (Acute) Constipation (Acute) Date of Admission: 08/10/17 Date of Discharge: 08/11/17 - Primary Discharge Diagnosis Active and Suspected Problems Abdominal pain (Acute) Constipation (Acute) - Secondary Discharge Diagnosis Chronic Problems Syncope (Chronic) Obesity (BMI 30.0-34.9) (Chronic) Anxiety and depression (Chronic) Hyperlipidemia (Chronic) Type I diabetes mellitus (Chronic) Coronary artery disease (Chronic) Status post stents Hypertension (Chronic) Chronic pain (Chronic) Hospital Course and Treatment Imaging Results: None at this facility. From outside facility at [facility] ED, CT of abdomen and pelvis showed large amount of stool but otherwise normal study. Operations: None Procedures: None Summary of Care Provided: The patient is a 37 y/o Fw/ PMH: ?MTHFR gene mutation, CAD s/p PCI, HTN, HLD, Diabetes mellitus type I, Obesity, Anxiety and Depression, Chronic Pain Syndrome who presents to the [facility] ED on 08/10/17 from OSH ED [place] with complaints of recent serial ED presentation w/ abdominal pain, initially Dx UTI on 08/04/17 placed on keflex at that time but follow-up UCx without marked growth, additional evaluation on 08/06/[address] A/P without acute findings aside notable constipation and follow-up evaluation on 08/09/17 with ongoing abdominal generalized discomfort, nausea with emesis, poor oral intake and no BM x 1 week. She also notes intermittent substernal chest discomfort without radiation and without associated dyspnea or diaphoresis x 1 week with onset abdominal discomfort. She has history of CAD s/p PCI but has had recent unremarkable heart catheterization 05/2017. OSH requested transfer to [facility] for further evaluation initially secondary to her chest pain and also for ongoing abdominal discomfort complaints. Additional ED evaluation at OSH included unremarkable CBC, BMP w/ hyperglycemia BS 300 range, trop normal, EKG without acute findings, BNP normal, lipase normal level, CXR without acute process, GBUS w/ mild distention without stones of pericholecystic fluid noted. She had minimal bowel movements since yesterday after lactulose and fleets enema x 1, with one week history of constipation with underling autonomic neuropathy from diabetes. Give Colace 400 mg, MOM 60 ml x 1. Reglan was ordered initially, but out of stock. Start erythromycin IV 250 mg q8h 2 hours after oral stool softener, along with fleets enema. She had good result after the treatment. Plan to continue stool softener, Colace 200 mg po bid and Miralax one packet daily, along with Reglan 5 mg po tid /ac. She may add MOM depending on outcome. Follow up with PCP. The patient is a 37 y/o Fw/ PMH: ?MTHFR gene mutation, CAD s/p PCI, HTN, HLD, Diabetes mellitus type I, Obesity, Anxiety and Depression, Chronic Pain Syndrome who presents to the [facility] ED on 08/10/17 from OSH ED [place] with complaints of recent serial ED presentation w/ abdominal pain, initially Dx UTI on 08/04/17 placed on keflex at that time but follow-up UCx without marked growth, additional evaluation on 08/06/[address] A/P without acute findings aside notable constipation and follow-up evaluation on 08/09/17 with ongoing abdominal generalized discomfort, nausea with emesis, poor oral intake and no BM x 1 week. (1) Acute Abdominal Pain, Nausea and Emesis secondary to Acute Constipation: OSH CT A/P with constipation, no BM x 1 week, will admit to MS, allow clears only, PRN anti-emetics, initiate lactulose and fleetz enema as notes other earlier measures were unsuccessful, maintain on famotidine, repeat AM CBC, BMP, avoid narcotic therapy given currently presentation, encouraged OOB, dukes walking to assist with constipation. See above for further treatment with erythromycin IV, Colace, MOM, with Fleets, which gave good result. (2) Hx CVA: Prior incidentally noted Lacunar Infarct Left Thal[place], maintain on asa, plavix, BP regimen, statin, DM regimen. (3) Diabetes mellitus type I: Continue home insulin regimen, clears with ADAT to ADA diet, accu checks w/ ISS. HgBA1c pending. Nutrition consulted. (4) CAD: s/p PCI, continue home asa, plavix, BB, statin regimen. Given ongoing chest discomfort, likely secondary to #1, will obtain EKG and cycle cardiac enzymes, recent unremarkable heart catheterization 05/2017 as noted. (5) Hyperlipidemia: Continue home statin regimen. (6) Hypertension: Continue home regimen including HCTZ, imdur, losartan, metoprolol, minipress PRN hydralazine. (7) Anxiety and Depression: Continue home wellbutrin, zoloft and ativan regimen. (8) Chronic Pain Syndrome: Continue elavil, lyrica. Denies any current narcotic therapy. Her frequent admissions are concerning for seeking behavior. (9) Obesity: Weight loss and lifestyle changes encouraged, nutrition consulted. (10) ? MTHFR gene mutation: Noted history prior, encourage continued evaluation per Hem/Onc. Had previously recommended vitamin B6 and vitamin B12 supplementation, currently noted vitamin B6 home supplementation. (11) Pseudoseizures: Hx prior pseudoseizures, no current seizure like activity noted per OSH ED or currently. (12) DVT prophylaxis: SCDs, lovenox. Discharge Diet: 2000 Calorie Control Diet, Carb Control Diet, - - Cardiac diet. Discharge Activity: Return to Normal Activity Home Medications: Medications to take at Discharge Aspirin [Aspirin, Baby] 81 mg PO DAILY 03/04/15 Insulin Glargine [Lantus SoloStar Pen] 35 units SC BID 03/04/15 Magnesium Oxide [Mag-Ox 400] 800 mg PO DAILY 03/04/15 Insulin Aspart [Novolog Vial] 10 unit SQ TIDCM 11/24/15 Sertraline HCl [Zoloft] 100 mg PO DAILY 11/25/15 Nitroglycerin [Nitrostat] 0.4 mg SUBLINGUAL Q5M PRN #1 bottle 11/26/15 Insulin Aspart [Novolog Flexpen] See Protocol SC TIDCM 03/20/16 Pregabalin [Lyrica] 250 mg PO QHS 01/22/17 Atorvastatin Calcium [Lipitor] 80 mg PO QHS 04/26/17 Clopidogrel Bisulfate [Plavix] 75 mg PO DAILY 04/26/17 Cyanocobalamin [Vitamin B12] 1,000 mcg PO DAILY@0800 04/26/17 Folic Acid 1 mg PO DAILY@0800 04/26/17 Isosorbide Mononitrate [Imdur] 30 mg PO DAILY 04/26/17 Pyridoxine HCl [Vitamin B-6] 100 mg PO DAILY@0800 04/26/17 ranolazine ER 1,000 mg tablet,extended release,12 hr 1,000 mg PO BID #60 tab 05/29/17 Prazosin HCl [Minipress] 5 mg PO DAILY 06/21/17 buPROPion XL [Wellbutrin Xl] 300 mg PO DAILY 06/21/17 Hydrochlorothiazide 12.5 mg PO DAILY #30 cap 06/22/17 Losartan Potassium [Cozaar] 50 mg PO DAILY #30 tab 06/22/17 Amitriptyline HCl 50 mg PO QHS 08/10/17 Lorazepam [Ativan] 0.5 mg PO TID PRN PRN 08/10/17 Metoprolol Tartrate 25 mg PO DAILY 08/10/17 Docusate Sodium [Colace] 200 mg PO BID #60 cap 08/11/17 Metoclopramide HCl [Reglan] 5 mg PO TID #90 tab 08/11/17 Polyethylene Glycol 3350 [Miralax] 17 gm PO DAILY #30 packet 08/11/17 Following Prescrptions Were Given to Patient: Polyethylene Glycol 3350 [Miralax] 17 gm PO DAILY #30 packet Docusate Sodium [Colace] 200 mg PO BID #60 cap Metoclopramide HCl [Reglan] 5 mg PO TID #90 tab Primary Care Physician: Alka Pringle [Primary Care Provider] - Please follow up with your Primary Care Physician in: 5 to 7 days. Disposition: Home Patient Condition:: Good Medical Necessity - Tobacco Use Smoking Status: Never smoker Tobacco Use: Non-smoker Meaningful Use Info Meaningful Use Diagnoses (Choose all that apply): None applicable Code Visit OBSV E&M: 14141 Observation care discharge
--- NOTE | 2017-08-11 12:45 | DS.PCM_ITS ---
Discharge Date and Diagnosis - Problem List Patient Problems: Active and Suspected Problems Abdominal pain (Acute) Constipation (Acute) Date of Admission: 08/10/17 Date of Discharge: 08/11/17 - Primary Discharge Diagnosis Active and Suspected Problems Abdominal pain (Acute) Constipation (Acute) - Secondary Discharge Diagnosis Chronic Problems Syncope (Chronic) Obesity (BMI 30.0-34.9) (Chronic) Anxiety and depression (Chronic) Hyperlipidemia (Chronic) Type I diabetes mellitus (Chronic) Coronary artery disease (Chronic) Status post stents Hypertension (Chronic) Chronic pain (Chronic) Hospital Course and Treatment Imaging Results: None at this facility. From outside facility at [place] ED, CT of abdomen and pelvis showed large amount of stool but otherwise normal study. Operations: None Procedures: None Summary of Care Provided: The patient is a 37 y/o Fw/ PMH: ?MTHFR gene mutation, CAD s/p PCI, HTN, HLD, Diabetes mellitus type I, Obesity, Anxiety and Depression, Chronic Pain Syndrome who presents to the [facility] ED on 08/10/17 from OSH ED [place] with complaints of recent serial ED presentation w/ abdominal pain, initially Dx UTI on 08/04/17 placed on keflex at that time but follow-up UCx without marked growth , additional evaluation on 08/06/[address] A/P without acute findings aside notable constipation and follow-up evaluation on 08/09/17 with ongoing abdominal generalized discomfort, nausea with emesis, poor oral intake and no BM x 1 week. She also notes intermittent substernal chest discomfort without radiation and without associated dyspnea or diaphoresis x 1 week with onset abdominal discomfort. She has history of CAD s/p PCI but has had recent unremarkable heart catheterization 05/2017. OSH requested transfer to [facility] for further evaluation initially secondary to her chest pain and also for ongoing abdominal discomfort complaints. Additional ED evaluation at OSH included unremarkable CBC , BMP w/ hyperglycemia BS 300 range, trop normal, EKG without acute findings, BNP normal, lipase normal level, CXR without acute process, GBUS w/ mild distention without stones of pericholecystic fluid noted. She had minimal bowel movements since yesterday after lactulose and fleets enema x 1, with one week history of constipation with underling autonomic neuropathy from diabetes. Give Colace 400 mg, MOM 60 ml x 1. Reglan was ordered initially, but out of stock. Start erythromycin IV 250 mg q8h 2 hours after oral stool softener, along with fleets enema. She had good result after the treatment. Plan to continue stool softener, Colace 200 mg po bid and Miralax one packet daily, along with Reglan 5 mg po tid /ac. She may add MOM depending on outcome. Follow up with PCP. The patient is a 37 y/o Fw/ PMH: ?MTHFR gene mutation, CAD s/p PCI, HTN, HLD, Diabetes mellitus type I, Obesity, Anxiety and Depression, Chronic Pain Syndrome who presents to the [facility] ED on 08/10/17 from OSH ED [place] with complaints of recent serial ED presentation w/ abdominal pain, initially Dx UTI on 08/04/17 placed on keflex at that time but follow-up UCx without marked growth , additional evaluation on 08/06/[address] A/P without acute findings aside notable constipation and follow-up evaluation on 08/09/17 with ongoing abdominal generalized discomfort, nausea with emesis, poor oral intake and no BM x 1 week. (1) Acute Abdominal Pain, Nausea and Emesis secondary to Acute Constipation: OSH CT A/P with constipation, no BM x 1 week, will admit to [facility], allow clears only, PRN anti-emetics, initiate lactulose and fleetz enema as notes other earlier measures were unsuccessful, maintain on famotidine, repeat AM CBC, BMP, avoid narcotic therapy given currently presentation, encouraged OOB, dukes walking to assist with constipation. See above for further treatment with erythromycin IV, Colace, MOM, with Fleets, which gave good result. (2) Hx CVA: Prior incidentally noted Lacunar Infarct Left Thalamus, maintain on asa, plavix, BP regimen, statin, DM regimen. (3) Diabetes mellitus type I: Continue home insulin regimen, clears with ADAT to ADA diet, accu checks w/ ISS. HgBA1c pending. Nutrition consulted. (4) CAD: s/p PCI, continue home asa, plavix, BB, statin regimen. Given ongoing chest discomfort, likely secondary to #1, will obtain EKG and cycle cardiac enzymes, recent unremarkable heart catheterization 05/2017 as noted. (5) Hyperlipidemia: Continue home statin regimen. (6) Hypertension: Continue home regimen including HCTZ, imdur, losartan, metoprolol, minipress PRN hydralazine. (7) Anxiety and Depression: Continue home wellbutrin, zoloft and ativan regimen. (8) Chronic Pain Syndrome: Continue elavil, lyrica. Denies any current narcotic therapy. Her frequent admissions are concerning for seeking behavior. (9) Obesity: Weight loss and lifestyle changes encouraged, nutrition consulted. (10) ? MTHFR gene mutation: Noted history prior, encourage continued evaluation per Hem/Onc. Had previously recommended vitamin B6 and vitamin B12 supplementation, currently noted vitamin B6 home supplementation. (11) Pseudoseizures: Hx prior pseudoseizures, no current seizure like activity noted per OSH ED or currently. (12) DVT prophylaxis: SCDs, lovenox. Discharge Diet: 2000 Calorie Control Diet, Carb Control Diet, - - Cardiac diet. Discharge Activity: Return to Normal Activity Home Medications: Medications to take at Discharge Aspirin [Aspirin, Baby] 81 mg PO DAILY 03/04/15 Insulin Glargine [Lantus SoloStar Pen] 35 units SC BID 03/04/15 Magnesium Oxide [Mag-Ox 400] 800 mg PO DAILY 03/04/15 Insulin Aspart [Novolog Vial] 10 unit SQ TIDCM 11/24/15 Sertraline HCl [Zoloft] 100 mg PO DAILY 11/25/15 Nitroglycerin [Nitrostat] 0.4 mg SUBLINGUAL Q5M PRN #1 bottle 11/26/15 Insulin Aspart [Novolog Flexpen] See Protocol SC TIDCM 03/20/16 Pregabalin [Lyrica] 250 mg PO QHS 01/22/17 Atorvastatin Calcium [Lipitor] 80 mg PO QHS 04/26/17 Clopidogrel Bisulfate [Plavix] 75 mg PO DAILY 04/26/17 Cyanocobalamin [Vitamin B12] 1,000 mcg PO DAILY@0800 04/26/17 Folic Acid 1 mg PO DAILY@0800 04/26/17 Isosorbide Mononitrate [Imdur] 30 mg PO DAILY 04/26/17 Pyridoxine HCl [Vitamin B-6] 100 mg PO DAILY@0800 04/26/17 ranolazine ER 1,000 mg tablet,extended release,12 hr 1,000 mg PO BID #60 tab Prazosin HCl [Minipress] 5 mg PO DAILY 06/21/17 buPROPion XL [Wellbutrin Xl] 300 mg PO DAILY 06/21/17 Hydrochlorothiazide 12.5 mg PO DAILY #30 cap 06/22/17 Losartan Potassium [Cozaar] 50 mg PO DAILY #30 tab 06/22/17 Amitriptyline HCl 50 mg PO QHS 08/10/17 Lorazepam [Ativan] 0.5 mg PO TID PRN PRN 08/10/17 Metoprolol Tartrate 25 mg PO DAILY 08/10/17 Docusate Sodium [Colace] 200 mg PO BID #60 cap 08/11/17 Metoclopramide HCl [Reglan] 5 mg PO TID #90 tab 08/11/17 Polyethylene Glycol 3350 [Miralax] 17 gm PO DAILY #30 packet 08/11/17 Following Prescrptions Were Given to Patient: Polyethylene Glycol 3350 [Miralax] 17 gm PO DAILY #30 packet Docusate Sodium [Colace] 200 mg PO BID #60 cap Metoclopramide HCl [Reglan] 5 mg PO TID #90 tab Primary Care Physician: Alka Pringle [Primary Care Provider] - Please follow up with your Primary Care Physician in: 5 to 7 days. Disposition: Home Patient Condition:: Good Medical Necessity - Tobacco Use Smoking Status: Never smoker Tobacco Use: Non-smoker Meaningful Use Info Meaningful Use Diagnoses (Choose all that apply): None applicable Code Visit OBSV E&M: 21112 Observation care discharge
== END 2017-08-11 16:12 | disposition home or self-care (01) ==
PROVIDERS: Admitting Provider Family Medicine; Family Provider Family Medicine; PCP Family Medicine; Visit Provider Hospitalist
DX: K59.00 Constipation, unspecified (principal); I25.10 Atherosclerotic heart disease of native coronary artery without angina pectoris; G89.4 Chronic pain syndrome; I10 Essential (primary) hypertension; E78.5 Hyperlipidemia, unspecified; E66.9 Obesity, unspecified; E10.65 Type 1 diabetes mellitus with hyperglycemia; E10.43 Type 1 diabetes mellitus with diabetic autonomic (poly)neuropathy; Z68.33 Body mass index [BMI] 33.0-33.9, adult; Z71.3 Dietary counseling and surveillance; Z95.5 Presence of coronary angioplasty implant and graft; Z79.899 Other long term (current) drug therapy; Z79.82 Long term (current) use of aspirin; Z79.4 Long term (current) use of insulin; Z79.02 Long term (current) use of antithrombotics/antiplatelets; F41.9 Anxiety disorder, unspecified; F32.9 Major depressive disorder, single episode, unspecified
CPT/HCPCS: 36415; 80053; 82962; 83036; 83735; 84484; 85025; 93005; 96361; 96365; 96366; 96372; 96375; 96376; 97802; 99218; J7030; A4216; G0378; G0379; J2405

== ENCOUNTER 2017-11-22 18:21 | Emergency (ER) | payer MEDICAID, SELFPAY ==
[2017-11-22 18:22] VITALS: BP 161/87; PULSE 106; RESP 17; TEMP 36.5; O2SAT 98; BMI 33.5
--- NOTE | 2017-11-22 18:34 | ED.DCSUM_ITS ---
- ER Visit Summary Date of Service: 11/22/17 Chief Complaint: Right calf pain and ankle swelling History of Present Illness: The patient is a 37 F who has right calf pain and ankle swelling. It started yesterday. She just came back from a 8 hour car ride. She noticed some pain in her calf that feels like a charley horse. She also had some numbness and tingling last night. She has history of DVT in 2007. She is currently on aspirin and Plavix because she had a heart attack. She has [place] HFR. Physical Examination: Vital signs are reviewed. Right calf is tender to palpation. She does have mild ankle swelling on the right side. Sensation is intact. She has 2+ DP pulses bilaterally. Test Results: Duplex ultrasound is negative for DVT. Emergency Department Course and Treatment: Patient has negative for DVT on ultrasound. She may have some swelling due to the long car ride. She will follow-up with her PCP. Treatment Plan: [] Disposition: Discharge Impression: Right calf pain This note was generated with [employer] dictation software. It may contain incorrect words, spelling, and punctuation that were not noted in review of the chart prior to signing ED Disposition - Plan for ED Patient: Chief Complaint: Edema Referrals: Alka Pringle [Primary Care Provider] -
--- NOTE | 2017-11-22 18:39 | US_ITS ---
STUDY: VENOUS DOPPLER ULTRASOUND - RIGHT LOWER EXTREMITY REASON FOR EXAM: Female, 37 years old. Calf pain TECHNIQUE: Ultrasound evaluation of the deep vein system to include desir-scale imaging and compression was performed. Desir-scale imaging and Doppler sonographic evaluation, including duplex spectral analysis and qualitative color flow sonography, was performed. COMPARISON: None. FINDINGS: Common Femoral Vein: Normal compression, spontaneity and augmentation. Normal color Doppler. Common Femoral Vein/Greater Saphenous Junction: Normal compression, spontaneity and augmentation. Normal color Doppler. Femoral Proximal: Normal compression, spontaneity and augmentation. Normal color Doppler. Femoral Middle: Normal compression, spontaneity and augmentation. Normal color Doppler. Femoral Distal: Normal compression, spontaneity and augmentation. Normal color Doppler. Popliteal Vein: Normal compression, spontaneity and augmentation. Normal color Doppler. Posterior Tibial Vein: Normal compression, spontaneity and augmentation. Normal color Doppler. Peroneal Vein: Normal compression, spontaneity and augmentation. Normal color Doppler. US/Venous Duplex Imag/Limited/Uni IMPRESSION: Normal venous Doppler ultrasound of the right lower extremity. Electronically Signed: Topher Gallo, at 19:17 EDT Tel , Service support ,
--- NOTE | 2017-11-22 19:10 | ED.DEP ---
ED Disposition - Plan for ED Patient: Disposition: Home or Assisted Living Chief Complaint: Edema Instructions: ED Leg Swelling Unilateral Referrals: Alka Pringle [Primary Care Provider] -
[2017-11-22 19:13] VITALS: BP 158/75; PULSE 98; RESP 14; O2SAT 99
== END 2017-11-22 19:20 | disposition home or self-care (01) ==
PROVIDERS: Emergency Provider Emergency Medicine; Family Provider Family Medicine; PCP Family Medicine
DX: M79.661 Pain in right lower leg (principal); R20.2 Paresthesia of skin; M25.471 Effusion, right ankle; I25.2 Old myocardial infarction; E72.12 Methylenetetrahydrofolate reductase deficiency; Z86.718 Personal history of other venous thrombosis and embolism; Z79.82 Long term (current) use of aspirin; Z79.02 Long term (current) use of antithrombotics/antiplatelets; Z79.899 Other long term (current) drug therapy
CPT/HCPCS: 93971; 99282

== ENCOUNTER 2018-02-11 13:40 | Inpatient (IN) | payer MEDICAID, SELFPAY ==
--- NOTE | 2018-02-11 13:54 | CT_ITS ---
STUDY: CT SOFT TISSUE NECK WITHOUT CONTRAST REASON FOR EXAM: Female, 37 years old. Soft tissue swelling and abscess along the right side of the mandible extending towards the left side of the midline. Erythema and warm to touch. RADIATION DOSAGE (If Supplied By Facility): CTDIvol = ( 13.71 ) mGy, DLP = ( 436.40 ) mGycm TECHNIQUE: The patient was scanned in a multi-detector CT scanner. High resolution transaxial imaging was performed without the administration of intravenous contrast material. Sagittal and coronal images were reconstructed. Individualized dose optimization techniques were used for this CT. COMPARISON: None. FINDINGS: Coronary artery calcification and stent placement. Diffuse subcutaneous edema seen in the submental space worse on the right side with overlying skin thickening. No focal abscess is seen. A prominent submental lymph node measuring 1.3 cm x 0.9 cm is present in the midline. Normal bilateral parotid glands. Normal bilateral director of recruitment and admissions spaces. Normal bilateral parapharyngeal spaces. Normal bilateral carotid spaces. Normal bilateral sublingual and submandibular glands and spaces. Normal visualized nasopharynx. Normal retropharyngeal space. Normal perivertebral space. Normal visualized bilateral faucial tonsils. The visualized tongue, tongue base and oropharynx are normal. The visualized cervical lymph nodes (levels I-) are within normal size limits, and maintain normal morphology. There is no demonstrated solid or cystic mass lesion. Normal epiglottis, bilateral vallecula and hypopharynx. The pre-epiglottic and paraglottic adipose spaces are normal. Normal visualized bilateral piriform sinuses, aryepiglottic folds, vocal cords, and arytenoid-cricoid articulations. Normal subglottic trachea. Normal bilateral lobes of the thyroid gland. Normal visualized pulmonary apices. Normal visualized paranasal sinuses. Normal visualized cervical spine. CT/Soft Tissue Neck without Contr IMPRESSION: Diffuse subcutaneous edema in the submental space worse on the right side with overlying skin thickening. Prominent lymph node in the submental region. Electronically Signed: Lupillo Mckeon MD at 14:57 EDT Tel [phone], Service support ,
[2018-02-11 14:09] VITALS: BP 144/94; PULSE 109; RESP 16; TEMP 36.6; O2SAT 99; BMI 31.9
[2018-02-11] MEDS: Morphine 4 MG/ML Syringe IV (14:26)
[2018-02-11 14:28] LABS: Absolute Lymphocyte Count 1.58 X10^3/ul (0.83-4.51); Absolute Neutrophil Count 5.9 X10^3/uL (2.0-7.7); Basophil# 0.02 X10^3/uL; Basophil% 0.2 % (0-1); Eosinophil# 0.14 X10^3/uL; Eosinophils% 1.7 % (0-5); Hematocrit 40.5 % (37-47); Hemoglobin 13.7 g/dl (12.0-15.0); Lymphocyte # 1.58 X10^3/ul (4.0); Lymphocyte % 19.2 % (19-41); Mean Corp Hgb Conc 33.8 g/gl (32-36); Mean Corpuscular Hgb 28.6 pg (27.0-32.0); Mean Corpuscular Volume 84.6 fL (81-99); Mean Platelet Vol. 9.8 fl (6.2-12.0); Monocyte# 0.55 X10^3/uL; Monocyte% 6.7 % (0-10); Neutrophil # 5.93 X10^3/uL (2.7-7.7); Neutrophil % 72.1 % (47-70); POSITIVE COUNT NO; POSITIVE DIFFERENTIAL NO; POSITIVE MORPHOLOGY NO; Platelet Count 206 K/mm3 (150-450); RBC Distribution Width CV 13.2 % (11.6-14.6); RBC Distribution Width SD 40.3 fl (35.1-43.9); Red Blood Count 4.79 M/mm3 (4.2-5.4); White Blood Count 8.2 K/mm3 (4.4-11.0)
[2018-02-11 14:40] LABS: Anion Gap 9 (5-15); BUN 6 mg/dL (7-18); BUN/Creat Ratio 8.1 RATIO (10-20); Calcium,Total 9.2 mg/dL (8.5-10.1); Chloride 101 mmol/L (98-107); Creatinine, Serum 0.74 mg/dL (0.55-1.02); EST Glomerular Filtration Rate 94 mL/min (>60); Est Glom Filt Rate - Afr Amer 114 mL/min (>60); Estimated Creatinine Clearance 106.02 ml/min; Glucose 352 mg/dL (74-106); Potassium 3.7 mmol/L (3.5-5.1); Sodium Level 135 mmol/L (136-145)
--- NOTE | 2018-02-11 15:17 | ED.VISSUMM ---
- ER Visit Summary Date of Service: 02/11/18 Chief Complaint: Facial abscess History of Present Illness: The patient is a 37 F who presents with a facial abscess. 2 days ago she went to the emergency department at [place]. She had incision and drainage of an abscess below her chin. She was given 1 dose of IV vancomycin in the emergency department and then was discharged with clindamycin. She states she is not improving. It is becoming more painful. She had a temperature of 101 ?F at home. She took Tylenol and brought the temperature down to 99 ?F. She states that she has been taking the clindamycin but she does not seem to be getting any better. Physical Examination: Vital signs reviewed. HEENT exam reveals an airway that is patent. There is no submandibular swelling or trismus. Neck exam reveals cellulitis underneath the chin extending to the right side of the face. There is no fluctuance. The old incision and drainage site is seen. There is diffuse tenderness to palpation. Test Results: Laboratory studies are normal except for glucose of 352. CAT scan of the neck without contrast shows subcutaneous edema. No abscess is seen. Emergency Department Course and Treatment: Due to the patient not getting any better I feel she should be admitted to the hospital. 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 Her white blood cell count is normal but she does have type 2 diabetes. I discussed this with the hospitalist and the patient will be admitted observation Treatment Plan: [] Disposition: Admit to observation Impression: Facial cellulitis Type 2 diabetes This note was generated with [employer] dictation software. It may contain incorrect words, spelling, and punctuation that were not noted in review of the chart prior to signing ED Disposition - Plan for ED Patient: Chief Complaint: Abscess Referrals: Alka Pringle [Primary Care Provider] -
--- NOTE | 2018-02-11 15:27 | PCM.HP.STD ---
Problem List (1) Anxiety and depression Status: Chronic (2) Hyperlipidemia Status: Chronic Qualifiers: (3) Type I diabetes mellitus Status: Chronic Qualifiers: (4) Coronary artery disease Status: Chronic Qualifiers: Comment: Status post stents (5) Hypertension Status: Chronic Qualifiers: (6) Chronic pain Status: Chronic Qualifiers: History of Present Illness Date of Admission: 02/11/18 Chief Complaint: Chin pain, worsening redness and fever. The patient is a 37 year old F with past medical history as mentioned above presented to the emergency room because of worsening chin pain and redness. 2 days ago, she started having redness and pain on her chin that progressed and yesterday, she went to the emergency department at [facility] yesterday where she found to have submental abscess, had bedside incision and drainage, received 1 dose of IV vancomycin and she was discharged home. Since last night, the pain and redness of the chin has been getting worse, sharp pain, 8 out of 10 in severity, aggravated by even light touch of the chin area, associated with fever at home of up to 101.3 Fahrenheit and without relieving factors. She mentioned that the redness of the chin has been getting worse since last night. This morning, she took prescribed with clindamycin that was given to her yesterday without improvement. In the emergency department, her vital signs were stable, was afebrile. Her routine blood work was unremarkable. Blood sugar was 352. Patient mentioned that usually, her blood sugar has been in the 200s but over the last few days, it has been up to [address] scan of the neck without contrast revealed diffuse subcutaneous edema in the submental space with prominent lymph node in the submental region, no evidence of abscess. She is being admitted for treatment for submental abscess/cellulitis status post bedside incision and drainage that was performed yesterday with worsening pain and erythema of the chin area. Past Medical History Past Medical History (Chronic Problems): Chronic Problems Syncope (Chronic) Obesity (BMI 30.0-34.9) (Chronic) Anxiety and depression (Chronic) Hyperlipidemia (Chronic) Type I diabetes mellitus (Chronic) Coronary artery disease (Chronic) Status post stents Hypertension (Chronic) Chronic pain (Chronic) Allergies Iodinated Contrast- Oral and IV Dye [Iodinated Contrast Media - IV Dye] Allergy (Verified 07/26/18 18:24) Hives nitroglycerin [From Nitro-Bid] Allergy (Verified 11/22/17 18:24) DROPS HR LOW BP Penicillins Allergy (Verified 11/22/17 18:24) Rash Sulfa (Sulfonamide Antibiotics) Allergy (Verified 11/22/17 18:24) Hives Beta-Blockers (Beta-Adrenergic Bloc Adverse Reaction (Verified 11/22/17 18:24) Low blood pressure gabapentin [From Neurontin] Adverse Reaction (Verified 11/22/17 18:24) Upset Stomach metformin Adverse Reaction (Verified 11/22/17 18:24) Upset Stomach nitroglycerin IV Allergy (Uncoded 11/22/17 18:24) DROPS HR nitro drips per pt will drop bp quick and will bottom out Home Medications: Ambulatory Orders Medication Instructions Recorded Aspirin [Aspirin, Baby] 81 mg PO DAILY 03/04/15 Insulin Glargine [Lantus SoloStar 35 units SC BID 03/04/15 Pen] Magnesium Oxide [Mag-Ox 400] 800 mg PO DAILY 03/04/15 Insulin Aspart [Novolog Vial] 10 unit SQ TIDCM 11/24/15 Sertraline HCl [Zoloft] 100 mg PO DAILY 11/25/15 Nitroglycerin [Nitrostat] 0.4 mg SUBLINGUAL Q5M PRN #1 bottle 11/26/15 Insulin Aspart [Novolog Flexpen] See Protocol SC TIDCM 03/20/16 Folic Acid 1 mg PO DAILY@0800 04/26/17 ranolazine ER 1,000 mg 1,000 mg PO BID #60 tab 05/29/17 tablet,extended release,12 hr Amitriptyline HCl 50 mg PO QHS 08/10/17 atorvastatin 80 mg tablet 80 mg PO QHS #30 tab 08/13/17 clopidogrel 75 mg tablet 75 mg PO DAILY #90 tab 08/27/17 isosorbide mononitrate ER 30 mg 30 mg PO DAILY #90 tab 11/07/17 tablet,extended release 24 hr Pregabalin [Lyrica] 225 mg PO QHS 02/11/18 Surgical History: - - PCI ?2, bilateral tubal ligation, back surgery with L4-L5 rods and screws in place, tonsillectomy. 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 Denies: Anorexia, Chills, Weakness Eyes: Denies: Blurred vision, Double vision, Drainage, Redness HEENT: Reports: -. Denies: Difficulty Hearing, Ear Pain, Eye Pain Cardiovascular: Denies: Chest Pain, Chest Pressure, Edema, Heaviness, Orthopnea, Syncope Respiratory: Denies: Cough, Pleuritic Pain, Shortness of Breath, Sputum production, Wheezing Gastrointestinal: Denies: Abdominal Pain, Constipation, Diarrhea, Nausea, Vomiting Genitourinary: Denies: Dysuria, Frequency, Hematuria Musculoskeletal: Denies: Arm Pain, Back Pain, Foot Pain Skin: Denies: Dryness, Rash Neurological: Denies: Balance problems, Double vision, Change in Speech, Slurred speech, Confusion, Headaches, Incoordination, Numbness Psychiatric: Reports: Anxiety, Depression VTE Information - Inpt Only VTE Present on Admission: No VTE Mechan Device Prophylaxis: None VTE Pharm Prophylaxis ordered?: Yes - Physical Exam General: Alert, Oriented x3, Cooperative, No apparent distress HEENT: Atraumatic, PERRLA, EOMI, Normocephalic, - - Chin: Area of erythema and swelling in the submental region with surgical incision measuring about 1.5 cm surrounded by erythema, no fluctuation. Oral: Moist Mucosa Neck: Supple, No JVD, Negative Carotid Bruits, Trachea Midline, Thyroid Normal Size and Texture Lungs: Clear to auscultation, Normal air movement, No rhonchi, No wheeze, No rales Cardiovascular: Regular rate, Regular Rhythm, Normal S1, Normal S2, No murmurs Abdomen: Bowel Sounds Present, Soft, Non Tender, Non-Distended, No Hepato-splenomegaly, Obese Extremities: No clubbing, No cyanosis, No edema Skin: No rashes, No breakdown Lymphatic: No Cervical, Supraclavicular, or Inguinal Adenopathy Neurological: Cranial nerves II-XII grossly intact, Motor Exam 5/5 strength throughout Psych/Mental Status: Normal Affect, Appropriate, Alert and oriented to time, place, person, mood and affect Vital Signs Temp Pulse Resp BP Pulse Ox 97.8 F 109 H 16 144/94 H 99 02/11/18 14:09 02/11/18 14:09 02/11/18 14:09 02/11/18 14:09 02/11/18 14:09 Oxygen Delivery Method Room Air Weight: 210 lb 1.608 oz Body Mass Index (BMI) 31.9 Finger Stick Blood Glucose 294 Laboratory Tests Past 24 Hrs 02/11/18 02/11/18 14:20 14:20 WBC 8.2 RBC 4.79 Hgb 13.7 Hct 40.5 MCV 84.6 MCH 28.6 MCHC 33.8 RDW 13.2 RDW Differential 40.3 Plt Count 206 MPV 9.8 Immature Gran % (Auto) 0.100 Neut % (Auto) 72.1 H Lymph % (Auto) 19.2 [place] % (Auto) 6.7 Eos % (Auto) 1.7 Baso % (Auto) 0.2 Absolute Neuts (auto) 5.9 Absolute Lymphs (auto) 1.58 Total Counted Not Reportable Sodium 135 L Potassium 3.7 Chloride 101 Carbon Dioxide 25.0 Anion Gap 9 BUN 6 L Creatinine 0.74 Estim Creat Clear Calc 106.02 Est GFR (MDRD) Af Amer 114 Est GFR (MDRD) Non-Af 94 BUN/Creatinine Ratio 8.1 L Glucose 352 H Calcium 9.2 Clinical Impression(s) from Imaging Studies Soft Tissue Neck CT 02/11/18 13:54 IMPRESSION: Diffuse subcutaneous edema in the submental space worse on the right side with overlying skin thickening. Prominent lymph node in the submental region. Electronically Signed: Lupillo Mckeon MD at 14:57 EDT Tel [phone], Service support , Assessment/Plan All Active Problems Lumbar stenosis (Resolved) This is a 37 years old female patient presented to the ED because of worsening chin pain and redness after she had bedside incision and drainage yesterday at [facility] emergency department and she is being admitted for treatment with IV antibiotics because of worsening symptoms and fever and she is diabetic. #1 submental abscess/cellulitis: Status post bedside incision and drainage that was done at [facility] ED yesterday, postop day 1. Patient came today with worsening pain and redness of the submental region as well as fever of up to 101.3 Fahrenheit. Her vital signs are stable. She is afebrile today, no leukocytosis. Although she is not septic and she is afebrile but because of worsening symptoms and reported fever, patient needed to be admitted for IV antibiotics as she is diabetic which is poorly controlled nowadays. [facility], IV fluids, Tylenol as needed, OxyIR as needed, start IV vancomycin, MRSA screen. No pus or drainage at the incision area that can be cultured. #2 type 1 diabetes mellitus: Uncontrolled nowadays. Blood sugar in the ER was 352. No evidence of DKA. Patient mentioned that her sugar usually has been in the 200s but over the last few days, it has been up to 500s. Plan: ADA diet, Accu-Cheks, insulin sliding scale, continue home doses of Lantus and NovoLog. #3 CAD status post stents: Stable, no complaints. Continue aspirin, statins, Plavix, nitrates and Ranexa. #4 hypertension: Blood pressure stable, continue nitrates. #5 hyperlipidemia: Continue statins. #6 anxiety/depression: Continue Zoloft and amitriptyline. #7 chronic pain syndrome: Continue amitriptyline and Lyrica, start as needed OxyIR. #8 history of stroke: Stable, continue aspirin and Plavix as well as statins. #9 DVT prophylaxis: Subcu Lovenox. This note was generated with [employer] dictation software. It may contain incorrect words, spelling, and punctuation that were not noted in checking the note before signing. Code Visit Inpatient E&M: 98360 Init Hosp L2
--- NOTE | 2018-02-11 15:36 | HP.PCM_ITS ---
Problem List (1) Anxiety and depression Status: Chronic (2) Hyperlipidemia Status: Chronic Qualifiers: (3) Type I diabetes mellitus Status: Chronic Qualifiers: (4) Coronary artery disease Status: Chronic Qualifiers: Comment: Status post stents (5) Hypertension Status: Chronic Qualifiers: (6) Chronic pain Status: Chronic Qualifiers: History of Present Illness Date of Admission: 02/11/18 Chief Complaint: Chin pain, worsening redness and fever. The patient is a 37 year old F with past medical history as mentioned above presented to the emergency room because of worsening chin pain and redness. 2 days ago, she started having redness and pain on her chin that progressed and yesterday, she went to the emergency department at [facility] yesterday where she found to have submental abscess, had bedside incision and drainage, received 1 dose of IV vancomycin and she was discharged home. Since last night, the pain and redness of the chin has been getting worse, sharp pain, 8 out of 10 in severity, aggravated by even light touch of the chin area, associated with fever at home of up to 101.3 Fahrenheit and without relieving factors. She mentioned that the redness of the chin has been getting worse since last night. This morning, she took prescribed with clindamycin that was given to her yesterday without improvement. In the emergency department, her vital signs were stable, was afebrile. Her routine blood work was unremarkable. Blood sugar was 352. Patient mentioned that usually, her blood sugar has been in the 200s but over the last few days, it has been up to [address] scan of the neck without contrast revealed diffuse subcutaneous edema in the submental space with prominent lymph node in the submental region, no evidence of abscess. She is being admitted for treatment for submental abscess/cellulitis status post bedside incision and drainage that was performed yesterday with worsening pain a nd erythema of the chin area. Past Medical History Past Medical History (Chronic Problems): Chronic Problems Syncope (Chronic) Obesity (BMI 30.0-34.9) (Chronic) Anxiety and depression (Chronic) Hyperlipidemia (Chronic) Type I diabetes mellitus (Chronic) Coronary artery disease (Chronic) Status post stents Hypertension (Chronic) Chronic pain (Chronic) Allergies Iodinated Contrast- Oral and IV Dye [Iodinated Contrast Media - IV Dye] Allergy (Verified 11/22/17 18:24) Hives nitroglycerin [From Nitro-Bid] Allergy (Verified 11/22/17 18:24) DROPS HR LOW BP Penicillins Allergy (Verified 11/22/17 18:24) Rash Sulfa (Sulfonamide Antibiotics) Allergy (Verified 11/22/17 18:24) Hives Beta-Blockers (Beta-Adrenergic Bloc Adverse Reaction (Verified 11/22/17 18:24) Low blood pressure gabapentin [From Neurontin] Adverse Reaction (Verified 11/22/17 18:24) Upset Stomach metformin Adverse Reaction (Verified 11/22/17 18:24) Upset Stomach nitroglycerin IV Allergy (Uncoded 11/22/17 18:24) DROPS HR nitro drips per pt will drop bp quick and will bottom out Home Medications: Ambulatory Orders Medication Instructions Recorded Aspirin [Aspirin, Baby] 81 mg PO DAILY 03/04/15 Insulin Glargine [Lantus SoloStar 35 units SC BID 03/04/15 Pen] Magnesium Oxide [Mag-Ox 400] 800 mg PO DAILY 03/04/15 Insulin Aspart [Novolog Vial] 10 unit SQ TIDCM 11/24/15 Sertraline HCl [Zoloft] 100 mg PO DAILY 11/25/15 Nitroglycerin [Nitrostat] 0.4 mg SUBLINGUAL Q5M PRN #1 bottle 11/26/15 Insulin Aspart [Novolog Flexpen] See Protocol SC TIDCM 03/20/16 Folic Acid 1 mg PO DAILY@0800 04/26/17 ranolazine ER 1,000 mg 1,000 mg PO BID #60 tab 05/29/17 tablet,extended release,12 hr Amitriptyline HCl 50 mg PO QHS 08/10/17 atorvastatin 80 mg tablet 80 mg PO QHS #30 tab 08/13/17 clopidogrel 75 mg tablet 75 mg PO DAILY #90 tab 08/27/17 isosorbide mononitrate ER 30 mg 30 mg PO DAILY #90 tab 11/07/17 tablet,extended release 24 hr Pregabalin [Lyrica] 225 mg PO QHS 02/11/18 Surgical History: - - PCI ?2, bilateral tubal ligation, back surgery with L4-L5 rods and screws in place, tonsillectomy. 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 Denies: Anorexia, Chills, Weakness Eyes: Denies: Blurred vision, Double vision, Drainage, Redness HEENT: Reports: -. Denies: Difficulty Hearing, Ear Pain, Eye Pain Cardiovascular: Denies: Chest Pain, Chest Pressure, Edema, Heaviness, Orthopnea, Syncope Respiratory: Denies: Cough, Pleuritic Pain, Shortness of Breath, Sputum production, Wheezing Gastrointestinal: Denies: Abdominal Pain, Constipation, Diarrhea, Nausea, Vomiting Genitourinary: Denies: Dysuria, Frequency, Hematuria Musculoskeletal: Denies: Arm Pain, Back Pain, Foot Pain Skin: Denies: Dryness, Rash Neurological: Denies: Balance problems, Double vision, Change in Speech, Slurred speech, Confusion, Headaches, Incoordination, Numbness Psychiatric: Reports: Anxiety, Depression VTE Information - Inpt Only VTE Present on Admission: No VTE Mechan Device Prophylaxis: None VTE Pharm Prophylaxis ordered?: Yes - Physical Exam General: Alert, Oriented x3, Cooperative, No apparent distress HEENT: Atraumatic, PERRLA, EOMI, Normocephalic, - - Chin: Area of erythema and swelling in the submental region with surgical incision measuring about 1.5 cm surrounded by erythema, no fluctuation. Oral: Moist Mucosa Neck: Supple, No JVD, Negative Carotid Bruits, Trachea Midline, Thyroid Normal Size and Texture Lungs: Clear to auscultation, Normal air movement, No rhonchi, No wheeze, No rales Cardiovascular: Regular rate, Regular Rhythm, Normal S1, Normal S2, No murmurs Abdomen: Bowel Sounds Present, Soft, Non Tender, Non-Distended, No Hepato- splenomegaly, Obese Extremities: No clubbing, No cyanosis, No edema Skin: No rashes, No breakdown Lymphatic: No Cervical, Supraclavicular, or Inguinal Adenopathy Neurological: Cranial nerves II-XII grossly intact, Motor Exam 5/5 strength throughout Psych/Mental Status: Normal Affect, Appropriate, Alert and oriented to time, place, person, mood and affect Vital Signs Temp Pulse Resp BP Pulse Ox 97.8 F 109 H 16 144/94 H 99 02/11/18 14:09 02/11/18 14:09 02/11/18 14:09 02/11/18 14:09 02/11/18 14:09 Oxygen Delivery Method Room Air Weight: 210 lb 1.608 oz Body Mass Index (BMI) 31.9 Finger Stick Blood Glucose 294 Laboratory Tests Past 24 Hrs 02/11/18 02/11/18 14:20 14:20 WBC 8.2 RBC 4.79 Hgb 13.7 Hct 40.5 MCV 84.6 MCH 28.6 MCHC 33.8 RDW 13.2 RDW Differential 40.3 Plt Count 206 MPV 9.8 Immature Gran % (Auto) 0.100 Neut % (Auto) 72.1 H Lymph % (Auto) 19.2 [place] % (Auto) 6.7 Eos % (Auto) 1.7 Baso % (Auto) 0.2 Absolute Neuts (auto) 5.9 Absolute Lymphs (auto) 1.58 Total Counted Not Reportable Sodium 135 L Potassium 3.7 Chloride 101 Carbon Dioxide 25.0 Anion Gap 9 BUN 6 L Creatinine 0.74 Estim Creat Clear Calc 106.02 Est GFR (MDRD) Af Amer 114 Est GFR (MDRD) Non-Af 94 BUN/Creatinine Ratio 8.1 L Glucose 352 H Calcium 9.2 Clinical Impression(s) from Imaging Studies Soft Tissue Neck CT 02/11/18 13:54 IMPRESSION: Diffuse subcutaneous edema in the submental space worse on the right side with overlying skin thickening. Prominent lymph node in the submental region. Electronically Signed: Lupillo Mckeon MD at 14:57 EDT Tel [phone], Service support , Assessment/Plan All Active Problems Lumbar stenosis (Resolved) This is a 37 years old female patient presented to the ED because of worsening chin pain and redness after she had bedside incision and drainage yesterday at [facility] emergency department and she is being admitted for treatment with IV antibiotics because of worsening symptoms and fever and she is diabetic. #1 submental abscess/cellulitis: Status post bedside incision and drainage that was done at [facility] ED yesterday, postop day 1. Patient came today with worsening pain and redness of the submental region as well as fever of up to 101.3 Fahrenheit. Her vital signs are stable. She is afebrile today, no leukocytosis. Although she is not septic and she is afebrile but because of worsening symptoms and reported fever, patient needed to be admitted for IV antibiotics as she is diabetic which is poorly controlled nowadays. [facility], IV fluids, Tylenol as needed, OxyIR as needed, start IV vancomycin, MRSA screen. No pus or drainage at the incision area that can be cultured. #2 type 1 diabetes mellitus: Uncontrolled nowadays. Blood sugar in the ER was 352. No evidence of DKA. Patient mentioned that her sugar usually has been in the 200s but over the last few days, it has been up to 500s. Plan: ADA diet, Accu-Cheks, insulin sliding scale, continue home doses of Lantus and NovoLog. #3 CAD status post stents: Stable, no complaints. Continue aspirin, statins, Plavix, nitrates and Ranexa. #4 hypertension: Blood pressure stable, continue nitrates. #5 hyperlipidemia: Continue statins. #6 anxiety/depression: Continue Zoloft and amitriptyline. #7 chronic pain syndrome: Continue amitriptyline and Lyrica, start as needed OxyIR. #8 history of stroke: Stable, continue aspirin and Plavix as well as statins. #9 DVT prophylaxis: Subcu Lovenox. This note was generated with [employer] dictation software. It may contain incorrect words, spelling, and punctuation that were not noted in checking the note before signing. Code Visit Inpatient E&M: 71389 Init Hosp L2
[2018-02-11 15:40] VITALS: RESP 16; O2SAT 98
[2018-02-11 16:14] VITALS: BMI 31.8
[2018-02-11 16:15] VITALS: BP 124/66; PULSE 96; RESP 20; TEMP 36.8; O2SAT 98
[2018-02-11 16:17] VITALS: BMI 31.8
[2018-02-11] MEDS: oxyCODONE 5 MG Tablet PO ×2 (16:34→21:07)
[2018-02-11 16:40] LABS: Bedside Glucose 336 mg/dL (70-110)
[2018-02-11] MEDS: Insulin Lispro 100 UNIT/ML INSULN.PEN SC ×2 (16:41→21:32)
--- NOTE | 2018-02-11 16:43 | PCM.RX.CS ---
Consult Pharmacy has been consulted to manage selected antiobiotic: Vancomycin Type of Consult: New start Suspected Infection: Skin/Soft tissue Prior Doses of Antibiotics Received/Current Regimen: Patient received 1gm iv on 02.10.18 at another facility. Will dose with 15mg/kg (1500mg) IV as initial dose. Labs: Sodium 135 mmol/L (136-145) L 02/11/18 14:20 Potassium 3.7 mmol/L (3.5-5.1) 02/11/18 14:20 Chloride 101 mmol/L (98-107) 02/11/18 14:20 Carbon Dioxide 25.0 mmol/L (21.0-32.0) 02/11/18 14:20 Anion Gap 9 (5-15) 02/11/18 14:20 BUN 6 mg/dL (7-18) L 02/11/18 14:20 Creatinine 0.74 mg/dL (0.55-1.02) 02/11/18 14:20 Est GFR (MDRD) Af Amer 114 mL/min (>60) 02/11/18 14:20 Est GFR (MDRD) Non-Af 94 mL/min (>60) 02/11/18 14:20 BUN/Creatinine Ratio 8.1 RATIO (10-20) L 02/11/18 14:20 Glucose 352 mg/dL (74-106) H 02/11/18 14:20 Weight used for dosin.9 kg Estimated Creatinine Clearance: 106 ml/min Goal Trough: 10-15 mcg/mL Pharmacy Plan for Drug Dosing: After review of renal status (Cr 0.7 and CrCl 106),weight and indication, will begin 1500mg IV q12h. Have ordered vancomycin trough before 4th dose 0n 02.13.18 at 0530. Pharmacy Service will continue to monitor and adjust dosing as required. Follow-Up Labs: Trough Vancomycin - on 02.13.18 @0530 before 0600 dose
[2018-02-11] MEDS: Amitriptyline 25 MG Tablet 50 MG PO (21:11)
[2018-02-11] MEDS: Atorvastatin Calcium 80 MG Tablet PO (21:11)
[2018-02-11] MEDS: Ranolazine 500 MG Tablet 1000 MG PO (21:11)
[2018-02-11] MEDS: Pregabalin 75 MG Capsule 225 MG PO (21:24)
[2018-02-11 22:15] VITALS: BP 134/86; PULSE 95; RESP 16; TEMP 36.7; O2SAT 98
[2018-02-11 22:16] LABS: M R Staph aureus DNA By PCR POSITIVE (Negative); Probe Check PASS; Staph aureus DNA By PCR POSITIVE (Negative)
[2018-02-11 22:20] LABS: Bedside Glucose 252 mg/dL (70-110)
[2018-02-12] MEDS: oxyCODONE 5 MG Tablet PO ×4 (00:07→17:12)
[2018-02-12 04:15] VITALS: BP 136/83; PULSE 93; RESP 16; TEMP 36.7; O2SAT 100
[2018-02-12 05:58] LABS: Absolute Lymphocyte Count 1.91 X10^3/ul (0.83-4.51); Absolute Neutrophil Count 3.7 X10^3/uL (2.0-7.7); Basophil# 0.03 X10^3/uL; Basophil% 0.5 % (0-1); Eosinophil# 0.21 X10^3/uL; Eosinophils% 3.3 % (0-5); Hemoglobin 12.6 g/dl (12.0-15.0); Lymphocyte # 1.91 X10^3/ul (4.0); Lymphocyte % 30.3 % (19-41); Mean Corp Hgb Conc 34.1 g/gl (32-36); Mean Corpuscular Volume 85.3 fL (81-99); Mean Platelet Vol. 10.1 fl (6.2-12.0); Monocyte# 0.45 X10^3/uL; Monocyte% 7.1 % (0-10); Neutrophil # 3.68 X10^3/uL (2.7-7.7); Neutrophil % 58.5 % (47-70); Platelet Count 206 K/mm3 (150-450); RBC Distribution Width SD 40.1 fl (35.1-43.9); Red Blood Count 4.34 M/mm3 (4.2-5.4); White Blood Count 6.3 K/mm3 (4.4-11.0)
[2018-02-12 06:00] LABS: POSITIVE COUNT NO; POSITIVE DIFFERENTIAL NO; POSITIVE MORPHOLOGY NO
[2018-02-12 06:01] LABS: Anion Gap 8 (5-15); BUN 7 mg/dL (7-18); BUN/Creat Ratio 10.5 RATIO (10-20); Calcium,Total 8.5 mg/dL (8.5-10.1); Chloride 102 mmol/L (98-107); Creatinine, Serum 0.67 mg/dL (0.55-1.02); EST Glomerular Filtration Rate 106 mL/min (>60); Est Glom Filt Rate - Afr Amer 128 mL/min (>60); Glucose 235 mg/dL (74-106); Potassium 3.7 mmol/L (3.5-5.1); Sodium Level 138 mmol/L (136-145)
[2018-02-12] MEDS: Insulin Lispro 100 UNIT/ML INSULN.PEN SC ×4 (06:34→21:17)
[2018-02-12] MEDS: Enoxaparin 40 MG/0.4 ML Syringe SC (06:34)
[2018-02-12 06:40] LABS: Bedside Glucose 212 mg/dL (70-110)
[2018-02-12 09:00] VITALS: BP 116/74; PULSE 92; RESP 18; TEMP 36.7; O2SAT 97
--- NOTE | 2018-02-12 09:10 | PCM.PN.HOSP ---
Patient Problems: Active and Suspected Problems Facial cellulitis (Acute) Subjective: Still with swelling on her lower chin but states that it overall is better. milled rubber tender to palpation. Patient also has some lesions on her right breast that has had some drainage. Vitals/I&O's: Vital Signs Temp Pulse Resp BP Pulse Ox 36.7 C 92 18 116/74 97 02/12/18 09:00 02/12/18 09:00 02/12/18 09:00 02/12/18 09:00 02/12/18 09:00 Oxygen Delivery Method Room Air Weight: 94.892 kg Body Mass Index (BMI) 31.8 Finger Stick Blood Glucose 294 Intake and Output for Last 24 Hours 02/10/18 02/11/18 02/12/18 23:59 23:59 23:59 Intake Total 1122 / 1122 752 / 752 Balance 1122 / 1122 752 / 752 General: Alert, No apparent distress HEENT: Atraumatic, - - induration on the lower chin. no fluctuance note. no purulence expressed. Oral: Moist Mucosa, No Gingival or Mucosal Lesions/ Ulcerations Neck: No Nodes, Thyroid Normal Size and Texture Lungs: Clear to auscultation, Normal air movement, No rhonchi, No wheeze Cardiovascular: Regular rate, Regular Rhythm, Normal S1, Normal S2, No murmurs Abdomen: Bowel Sounds Present, Soft, Non Tender, Non-Distended, No Hepato-splenomegaly Extremities: No edema, No Calf Tenderness Skin: - - chin as above. has scabbed over lesion on right lateral breast w/o induration. Neurological: Cranial nerves II-XII grossly intact, Deep Tendon Reflexes 2+/4 and Symmetrical Psych/Mental Status: Normal Affect, Appropriate Laboratory Results 02/11/18 14:20: WBC 8.2, RBC 4.79, Hgb 13.7, Hct 40.5, MCV 84.6, MCH 28.6, MCHC 33.8, RDW 13.2, RDW Differential 40.3, Plt Count 206, MPV 9.8, Immature Gran % (Auto) 0.100, Neut % (Auto) 72.1 H, Lymph % (Auto) 19.2, [place] % (Auto) 6.7, Eos % (Auto) 1.7, Baso % (Auto) 0.2, Absolute Neuts (auto) 5.9, Absolute Lymphs (auto) 1.58, Total Counted Not Reportable 02/11/18 14:20: Sodium 135 L, Potassium 3.7, Chloride 101, Carbon Dioxide 25.0, Anion Gap 9, BUN 6 L, Creatinine 0.74, Estim Creat Clear Calc 106.02, Est GFR (MDRD) Af Amer 114, Est GFR (MDRD) Non-Af 94, BUN/Creatinine Ratio 8.1 L, Glucose 352 H, Calcium 9.2 02/11/18 16:31: POC Glucose 336 H 02/11/18 18:35: S.aureus Protein A PCR POSITIVE H, MRSA (PCR) POSITIVE H 02/11/18 21:30: POC Glucose 252 H 02/12/18 05:35: WBC 6.3, RBC 4.34, Hgb 12.6, Hct 37.0, MCV 85.3, MCH 29.0, MCHC 34.1, RDW 13.0, RDW Differential 40.1, Plt Count 206, MPV 10.1, Immature Gran % (Auto) 0.300, Neut % (Auto) 58.5, Lymph % (Auto) 30.3, [place] % (Auto) 7.1, Eos % (Auto) 3.3, Baso % (Auto) 0.5, Absolute Neuts (auto) 3.7, Absolute Lymphs (auto) 1.91, Total Counted Not Reportable 02/12/18 05:35: Sodium 138, Potassium 3.7, Chloride 102, Carbon Dioxide 28.0, Anion Gap 8, BUN 7, Creatinine 0.67, Estim Creat Clear Calc 117.10, Est GFR (MDRD) Af Amer 128, Est GFR (MDRD) Non-Af 106, BUN/Creatinine Ratio 10.5, Glucose 235 H, Calcium 8.5 02/12/18 06:34: POC Glucose 212 H Current Medications Acetaminophen (Tylenol) 650 mg PO Q6H PRN PRN PRN Reason: Pain, headache, fever Amitriptyline HCl (Elavil) 50 mg PO QHS [facility] Last Admin: 02/11/18 21:11 Dose: 50 mg [facility]ir[facility], [facility]) [facility] Atorvastatin Calcium (Lipitor) 80 mg PO QHS [facility] Last Admin: 02/11/18 21:11 Dose: 80 mg Clopidogrel Bisulfate (Plavix) 75 mg PO DAILY [facility] Enoxaparin Sodium (Lovenox) 40 mg SC DAILY@0600 [facility] Last Admin: 02/12/18 06:34 Dose: 40 mg Folic Acid (Folic Acid) 1 mg PO DAILY@0800 [facility] Vancomycin HCl 1,500 mg/ (Sodium Chloride) 530 mls @ 250 mls/hr IV Q12H [facility] Last Admin: 02/12/18 06:34 Dose: 250 mls/hr Sodium Chloride () 250 mls @ 15 mls/hr IV .[id number] PRN PRN Reason: SALINE FLUSH Insulin Glargine (Lantus (Bkc)) 35 units SC BID [facility] Last Admin: 02/11/18 21:31 Dose: 35 u Insulin Human Lispro (Humalog Kwikpen (Bkc)) 10 unit SC 0800,1200,1700 [facility] Insulin Human Lispro (Humalog Kwikpen (Bkc)) 0 unit SC ACHS [facility]; Protocol Last Admin: 02/12/18 06:34 Dose: 2 units Isosorbide Mononitrate (Imdur) 30 mg PO DAILY [facility] Magnesium Hydroxide (Milk Of Magnesia) 30 ml PO DAILY PRN PRN PRN Reason: Constipation Ondansetron HCl (Zofran) 4 mg IV Q6H PRN PRN PRN Reason: NAUSEA/VOMITING Oxycodone HCl (Oxyir) 5 - 10 mg PO Q4H PRN PRN PRN Reason: SEVERE PAIN (6-10/10) Last Admin: 02/12/18 06:30 Dose: 5 mg Pregabalin (Lyrica) 225 mg PO QHS [facility] Last Admin: 02/11/18 21:24 Dose: 225 mg Ranolazine (Ranexa) 1,000 mg PO BID [facility] Last Admin: 02/11/18 21:11 Dose: 1,000 mg Sertraline HCl (Zoloft) 100 mg PO DAILY [facility] Sodium Chloride () 5 - 30 ml IV UD PRN PRN Reason: SALINE FLUSH Medical Necessity - Tobacco Use Smoking Status: Never smoker Assessment/Plan All Active Problems Facial cellulitis (Acute) Lumbar stenosis (Resolved) 1. Facial cellulitis no abscess on CT had I+D at [facility] with minimal drainage per patient--culture not performed per the patient. + screen for MRSA and MSSA continue vanc check culture results from [facility]--if available. If improves, could discharge as early as 02/13 with Doxycyline 7-10 days. 2. Breast lesion no active infection, scabbed over. 3. DM1 uncontrolled likely exacerbated by cellulitis monitor 4. DVT proph: LMWH. Code Visit Inpatient E&M: 06276 Subs Hosp L2
[2018-02-12] MEDS: Insulin Lispro 100 UNIT/ML INSULN.PEN 10 UNIT SC ×3 (09:12→17:13)
[2018-02-12] MEDS: Aspirin 81 MG TAB.CHEW PO (09:13)
[2018-02-12] MEDS: Sertraline 100 MG Tablet PO (09:14)
[2018-02-12] MEDS: Isosorbide Mononitrate 30 MG Tablet PO (09:14)
[2018-02-12] MEDS: Ranolazine 500 MG Tablet 1000 MG PO ×2 (09:14→21:18)
[2018-02-12] MEDS: Clopidogrel Bisulfate 75 MG Tablet PO (09:14)
[2018-02-12] MEDS: Folic Acid 1 MG Tablet PO (09:14)
--- NOTE | 2018-02-12 09:20 | PN_ITS ---
Patient Problems: Active and Suspected Problems Facial cellulitis (Acute) Subjective: Still with swelling on her lower chin but states that it overall is better. core composer machine tender to palpation. Patient also has some lesions on her right breast that has had some drainage. Vitals/I&O's: Vital Signs Temp Pulse Resp BP Pulse Ox 36.7 C 92 18 116/74 97 02/12/18 09:00 02/12/18 09:00 02/12/18 09:00 02/12/18 09:00 02/12/18 09:00 Oxygen Delivery Method Room Air Weight: 94.892 kg Body Mass Index (BMI) 31.8 Finger Stick Blood Glucose 294 Intake and Output for Last 24 Hours 02/10/18 02/11/18 02/12/18 23:59 23:59 23:59 Intake Total 1122 / 1122 752 / 752 Balance 1122 / 1122 752 / 752 General: Alert, No apparent distress HEENT: Atraumatic, - - induration on the lower chin. no fluctuance note. no purulence expressed. Oral: Moist Mucosa, No Gingival or Mucosal Lesions/ Ulcerations Neck: No Nodes, Thyroid Normal Size and Texture Lungs: Clear to auscultation, Normal air movement, No rhonchi, No wheeze Cardiovascular: Regular rate, Regular Rhythm, Normal S1, Normal S2, No murmurs Abdomen: Bowel Sounds Present, Soft, Non Tender, Non-Distended, No Hepato- splenomegaly Extremities: No edema, No Calf Tenderness Skin: - - chin as above. has scabbed over lesion on right lateral breast w/o induration. Neurological: Cranial nerves II-XII grossly intact, Deep Tendon Reflexes 2+/4 and Symmetrical Psych/Mental Status: Normal Affect, Appropriate Laboratory Results 02/11/18 14:20: WBC 8.2, RBC 4.79, Hgb 13.7, Hct 40.5, MCV 84.6, MCH 28.6, MCHC 33.8, RDW 13.2, RDW Differential 40.3, Plt Count 206, MPV 9.8, Immature Gran % (Auto) 0.100, Neut % (Auto) 72.1 H, Lymph % (Auto) 19.2, [place] % (Auto) 6.7, Eos % (Auto) 1.7, Baso % (Auto) 0.2, Absolute Neuts (auto) 5.9, Absolute Lymphs (auto) 1.58, Total Counted Not Reportable 02/11/18 14:20: Sodium 135 L, Potassium 3.7, Chloride 101, Carbon Dioxide 25.0, Anion Gap 9, BUN 6 L, Creatinine 0.74, Estim Creat Clear Calc 106.02, Est GFR (MDRD) Af Amer 114, Est GFR (MDRD) Non-Af 94, BUN/Creatinine Ratio 8.1 L, Glucose 352 H, Calcium 9.2 02/11/18 16:31: POC Glucose 336 H 02/11/18 18:35: S.aureus Protein A PCR POSITIVE H, MRSA (PCR) POSITIVE H 02/11/18 21:30: POC Glucose 252 H 02/12/18 05:35: WBC 6.3, RBC 4.34, Hgb 12.6, Hct 37.0, MCV 85.3, MCH 29.0, MCHC 34.1, RDW 13.0, RDW Differential 40.1, Plt Count 206, MPV 10.1, Immature Gran % (Auto) 0.300, Neut % (Auto) 58.5, Lymph % (Auto) 30.3, [place] % (Auto) 7.1, Eos % (Auto) 3.3, Baso % (Auto) 0.5, Absolute Neuts (auto) 3.7, Absolute Lymphs (auto) 1.91, Total Counted Not Reportable 02/12/18 05:35: Sodium 138, Potassium 3.7, Chloride 102, Carbon Dioxide 28.0, Anion Gap 8, BUN 7, Creatinine 0.67, Estim Creat Clear Calc 117.10, Est GFR (MDRD) Af Amer 128, Est GFR (MDRD) Non-Af 106, BUN/Creatinine Ratio 10.5, Glucose 235 H, Calcium 8.5 02/12/18 06:34: POC Glucose 212 H Current Medications Acetaminophen (Tylenol) 650 mg PO Q6H PRN PRN PRN Reason: Pain, headache, fever Amitriptyline HCl (Elavil) 50 mg PO QHS [facility] Last Admin: 02/11/18 21:11 Dose: 50 mg [facility]ir[facility], Baby) [facility] Atorvastatin Calcium (Lipitor) 80 mg PO QHS [facility] Last Admin: 02/11/18 21:11 Dose: 80 mg Clopidogrel Bisulfate (Plavix) 75 mg PO DAILY [facility] Enoxaparin Sodium (Lovenox) 40 mg SC DAILY@0600 [facility] Last Admin: 02/12/18 06:34 Dose: 40 mg Folic Acid (Folic Acid) 1 mg PO DAILY@0800 [facility] Vancomycin HCl 1,500 mg/ (Sodium Chloride) 530 mls @ 250 mls/hr IV Q12H [facility] Last Admin: 02/12/18 06:34 Dose: 250 mls/hr Sodium Chloride () 250 mls @ 15 mls/hr IV .[id number] PRN PRN Reason: SALINE FLUSH Insulin Glargine (Lantus (Bkc)) 35 units SC BID [facility] Last Admin: 02/11/18 21:31 Dose: 35 u Insulin Human Lispro (Humalog Kwikpen (Bkc)) 10 unit SC 0800,1200,1700 [facility] Insulin Human Lispro (Humalog Kwikpen (Bkc)) 0 unit SC ACHS [facility]; Protocol Last Admin: 02/12/18 06:34 Dose: 2 units Isosorbide Mononitrate (Imdur) 30 mg PO DAILY [facility] Magnesium Hydroxide (Milk Of Magnesia) 30 ml PO DAILY PRN PRN PRN Reason: Constipation Ondansetron HCl (Zofran) 4 mg IV Q6H PRN PRN PRN Reason: NAUSEA/VOMITING Oxycodone HCl (Oxyir) 5 - 10 mg PO Q4H PRN PRN PRN Reason: SEVERE PAIN (6-10/10) Last Admin: 02/12/18 06:30 Dose: 5 mg Pregabalin (Lyrica) 225 mg PO QHS [facility] Last Admin: 02/11/18 21:24 Dose: 225 mg Ranolazine (Ranexa) 1,000 mg PO BID [facility] Last Admin: 02/11/18 21:11 Dose: 1,000 mg Sertraline HCl (Zoloft) 100 mg PO DAILY [facility] Sodium Chloride () 5 - 30 ml IV UD PRN PRN Reason: SALINE FLUSH Medical Necessity - Tobacco Use Smoking Status: Never smoker Assessment/Plan All Active Problems Facial cellulitis (Acute) Lumbar stenosis (Resolved) 1. Facial cellulitis * no abscess on CT * had I+D at [facility] with minimal drainage per patient--culture not performed per the patient. * + screen for MRSA and MSSA * continue vanc * check culture results from [facility]--if available. * If improves, could discharge as early as 02/13 with Doxycyline 7-10 days. 2. Breast lesion * no active infection, scabbed over. 3. DM1 * uncontrolled * likely exacerbated by cellulitis * monitor 4. DVT proph: LMWH. Code Visit Inpatient E&M: 52440 Subs Hosp L2
--- NOTE | 2018-02-12 10:46 | US_ITS ---
STUDY: NECK SOFT TISSUE ULTRASOUND REASON FOR EXAM: Female, 37 years old. Mass TECHNIQUE: Ultrasound evaluation of the submental area was performed with real-time and static richardson-scale imaging. COMPARISON: None. FINDINGS: Images of the submental area demonstrates an irregular hypoechoic area just deep to the incision site measuring 1.8 cm suspicious for an abscess. Subsegmental 1.7 cm node is noted. US/Ext Non Vasc Limited/Soft Tiss IMPRESSION: Irregular hypoechoic area just deep to the incision site at the submental area suggestive for an abscess. Electronically Signed: Abhilash Pettit DO at 18:30 EDT Tel [phone], Service support ,
--- NOTE | 2018-02-12 10:51 | CON.PCM_ITS ---
Problem List (1) Facial cellulitis Status: Acute Reason for Consult: abscess Consulted by: Dr. Griffin History of Present Illness: The patient is a 37 year old F with T1DM who developed R finger cellulitis and abscess after getting nails put on. Went to [place] ED, had I&D, given 10 days of clinda. Finger got better, tolerated abx well, but a few weeks after started to have intermittently draining lesions on R breast and posterior lower scalp. Drainage is purulent. Over a few days, also developed progressive swelling, pain, redness, and warmth under her chin. Sx associated with fever, nausea. Came to ED here, I&D did not produce fluid, admitted on iv vanc. Area of inflammation has improved, but still quite tender and firm. She reports 9 yo daughter also with recent dx of MRSA skin abscess. Lives with her boyfriend and daughter and several cats. No prior h/o MRSA before this point. Full ROS performed and neg except as noted above. - Medical History Past Medical History (Chronic Problems): Chronic Problems Syncope (Chronic) Obesity (BMI 30.0-34.9) (Chronic) Anxiety and depression (Chronic) Hyperlipidemia (Chronic) Type I diabetes mellitus (Chronic) Coronary artery disease (Chronic) Status post stents Hypertension (Chronic) Chronic pain (Chronic) Allergies/Adverse Reactions: Allergies Iodinated Contrast- Oral and IV Dye [Iodinated Contrast Media - IV Dye] Allergy (Verified 11/22/17 18:24) Hives nitroglycerin [From Nitro-Bid] Allergy (Verified 11/22/17 18:24) DROPS HR LOW BP Penicillins Allergy (Verified 11/22/17 18:24) Rash Sulfa (Sulfonamide Antibiotics) Allergy (Verified 11/22/17 18:24) Hives Beta-Blockers (Beta-Adrenergic Bloc Adverse Reaction (Verified 11/22/17 18:24) Low blood pressure gabapentin [From Neurontin] Adverse Reaction (Verified 11/22/17 18:24) Upset Stomach metformin Adverse Reaction (Verified 11/22/17 18:24) Upset Stomach nitroglycerin IV Allergy (Uncoded 11/22/17 18:24) DROPS HR nitro drips per pt will drop bp quick and will bottom out Home Medications: Ambulatory Orders Medication Instructions Recorded Aspirin [Aspirin, Baby] 81 mg PO DAILY 03/04/15 Insulin Glargine [Lantus SoloStar 35 units SC BID 03/04/15 Pen] Magnesium Oxide [Mag-Ox 400] 800 mg PO DAILY 03/04/15 Insulin Aspart [Novolog Vial] 10 unit SQ TIDCM 11/24/15 Sertraline HCl [Zoloft] 100 mg PO DAILY 11/25/15 Nitroglycerin [Nitrostat] 0.4 mg SUBLINGUAL Q5M PRN #1 bottle 11/26/15 Insulin Aspart [Novolog Flexpen] See Protocol SC TIDCM 03/20/16 Folic Acid 1 mg PO DAILY@0800 04/26/17 ranolazine ER 1,000 mg 1,000 mg PO BID #60 tab 05/29/17 tablet,extended release,12 hr Amitriptyline HCl 50 mg PO QHS 08/10/17 atorvastatin 80 mg tablet 80 mg PO QHS #30 tab 08/13/17 clopidogrel 75 mg tablet 75 mg PO DAILY #90 tab 08/27/17 isosorbide mononitrate ER 30 mg 30 mg PO DAILY #90 tab 11/07/17 tablet,extended release 24 hr Pregabalin [Lyrica] 225 mg PO QHS 02/11/18 - Social History SMOKING STATUS:: Never smoker Vital Signs Temp Pulse Resp BP Pulse Ox 98.0 F 92 18 116/74 97 02/12/18 09:00 02/12/18 09:00 02/12/18 09:00 02/12/18 09:00 02/12/18 09:00 Oxygen Delivery Method Room Air Weight: 94.892 kg Body Mass Index (BMI) 31.8 Finger Stick Blood Glucose 294 Laboratory Tests Past 24 Hrs 02/11/18 02/11/18 02/11/18 14:20 14:20 18:35 WBC 8.2 RBC 4.79 Hgb 13.7 Hct 40.5 MCV 84.6 MCH 28.6 MCHC 33.8 RDW 13.2 RDW Differential 40.3 Plt Count 206 MPV 9.8 Immature Gran % (Auto) 0.100 Neut % (Auto) 72.1 H Lymph % (Auto) 19.2 [place] % (Auto) 6.7 Eos % (Auto) 1.7 Baso % (Auto) 0.2 Absolute Neuts (auto) 5.9 Absolute Lymphs (auto) 1.58 Total Counted Not Reportable Sodium 135 L Potassium 3.7 Chloride 101 Carbon Dioxide 25.0 Anion Gap 9 BUN 6 L Creatinine 0.74 Estim Creat Clear Calc 106.02 Est GFR (MDRD) Af Amer 114 Est GFR (MDRD) Non-Af 94 BUN/Creatinine Ratio 8.1 L Glucose 352 H Calcium 9.2 S.aureus Protein A PCR POSITIVE H MRSA (PCR) POSITIVE H 02/12/18 02/12/18 05:35 05:35 WBC 6.3 RBC 4.34 Hgb 12.6 Hct 37.0 MCV 85.3 MCH 29.0 MCHC 34.1 RDW 13.0 RDW Differential 40.1 Plt Count 206 MPV 10.1 Immature Gran % (Auto) 0.300 Neut % (Auto) 58.5 Lymph % (Auto) 30.3 [place] % (Auto) 7.1 Eos % (Auto) 3.3 Baso % (Auto) 0.5 Absolute Neuts (auto) 3.7 Absolute Lymphs (auto) 1.91 Total Counted Not Reportable Sodium 138 Potassium 3.7 Chloride 102 Carbon Dioxide 28.0 Anion Gap 8 BUN 7 Creatinine 0.67 Estim Creat Clear Calc 117.10 Est GFR (MDRD) Af Amer 128 Est GFR (MDRD) Non-Af 106 BUN/Creatinine Ratio 10.5 Glucose 235 H Calcium 8.5 S.aureus Protein A PCR MRSA (PCR) - Other Studies Radiology: [] reviewed Other Studies: [] Route of nutrition/ use of supplements: [] Nutritional Intake: [] IV Site: [] Wilson Catheter: [] - Physical Exam General: Alert, Oriented x3, Cooperative, No apparent distress HEENT: Atraumatic, PERRLA, EOMI Neck: - - large area of induration, moderate tenderness, redness and warmth under her chin. No drainage. Lungs: Clear to auscultation, Normal air movement Cardiovascular: Regular rate, Regular Rhythm, No murmurs Abdomen: Soft, Non Tender, Non-Distended Extremities: No edema Skin: - - Dry scabbed lesions on R breast and on posterior lower scalp IV Site: Peripheral, without redness Musculoskeletal: No Tenderness to Palpation of Joints or Extremities Neurological: Cranial nerves II-XII grossly intact - Assessment/Plan Antibiotics: [] Assessment/Plan: [] Active and Suspected Problems Facial cellulitis (Acute) MRSA chin abscess - will order u/s to look for fluid collection; may need surgery to I&D. Cont vanc for now. Has rash/n/v/feeling very ill with PCN, amox, and keflex. With her and her daughter having MRSA skin infections, recommend 5 day course of hibiclens wash qday with bid mupirocin to nares along with washing all sheets/towels in hot water. She says daughter is scheduled to see peds ID. Likely po doxy at discharge, but will want to culture any fluid that is able to come out. Scalp and breast lesions are dry and minimally indurated. Will follow, thank you.
[2018-02-12] MEDS: Acetaminophen 325 MG Tablet 650 MG PO ×2 (12:34→22:19)
[2018-02-12] MEDS: 0.9% NaCl Peripheral Flush Adult/Peds IV (12:44)
[2018-02-12 12:51] LABS: Bedside Glucose 266 mg/dL (70-110)
[2018-02-12 15:04] VITALS: BP 98/66; PULSE 89; RESP 16; TEMP 36.9; O2SAT 98
--- NOTE | 2018-02-12 15:32 | CASEMGMT ---
MARIA VICTORIA MARTINS INITIAL REVIEW ASSESSMENT D/C PLAN: Home Face to Face with patient for initial transition planning/care coordination assessment. MARIA VICTORIA MARTINS introduced self and role at [facility]. Care providers, pharmacy, and demographics verified. PCP: Dr Alka Pringle from [facility] Preferred Pharmacy: [facility] in [place]. [facility] on discharge day only. Insurance: [employer] Prescription Benefit: yes Living Will/HPOA: States has LW and HPOA which is [place]. Copy not found in e-chart. Declines wanting any further information. Living Arrangements: Lives with her daughter and boyfriend. Independent at home with ADL's and ambulation. Transportation: Pt reports she drives and [facility] can assist with transportation if needed. DME: Denies using any DME and denies needs. HHC: States had HHC in the past after having back surgery but does not remember what HHC agency it was. Pt's plans on D/C: Wishes to return home. Denies needs or concerns. CM to follow for any further discharge planning needs that may arise. Dudley FARR RN, CM
[2018-02-12 17:26] LABS: Bedside Glucose 224 mg/dL (70-110)
[2018-02-12 20:29] VITALS: BP 116/70; PULSE 86; RESP 16; TEMP 36.6; O2SAT 100
[2018-02-12] MEDS: Pregabalin 75 MG Capsule 225 MG PO (21:17)
[2018-02-12] MEDS: Atorvastatin Calcium 80 MG Tablet PO (21:18)
[2018-02-12] MEDS: Amitriptyline 25 MG Tablet 50 MG PO (21:19)
[2018-02-12 22:10] LABS: Bedside Glucose 240 mg/dL (70-110)
[2018-02-12] MEDS: DiphenhydrAMINE 50 MG/ML Syringe 25 MG IV (22:12)
[2018-02-13] VITALS (11 sets, daily range): BP systolic 105–134; BP diastolic 67–87; PULSE 84–98; RESP 16–18; TEMP 36.1–36.9; O2SAT 96–100; BMI 31.8
--- NOTE | 2018-02-13 | SOF_PTH ---
PATIENT: LATA STONE LOC: MS2 U#:[id number] AGE/SX: 37/F [place] [facility] [id number]: Dr. Jose Martin Du DO : 1980 BED: 1 DIS: 02/16/2018 SPEC #: [id number] RECD: 02/13/18 14:03 STATUS: KATI REAdama #: [id number] GISELL: 02/13/18 00:[address]: Mario Cabello DEPT: SURGICAL PATHOLOGY RECD BY: Clifford Barlow ENTERED: 02/13/18 14:04 SP TYPE: SOFT TISS OTHR DR: DO Dr. Owen Engle MD Dr. Robert D Cebul, MD Dr. Robert Leininger, MD Christina Peters Tissues: Mandible, NOS Procedures: Special Stain Group I Surgery Specimen Level III AFB Stain (control) GMS Stain (control) Comments: @ Ordering doctor for SUIV edited from to @ john BECK at 02/13/18 151 @ Submitting doctor edited from to @ by KIRAN at 02/13/18 1518 HEADER OPERATION: Submandibular wound debridement PRE-OP DIAGNOSIS: Submandibular MRSA abscess TISSUE SUBMITTED: Submandibular wound debridement soft tissue MICROSCOPIC DIAGNOSIS Submandibular wound debridement soft tissue: Pieces of skin and adipose tissue with acute inflammation and abscess formation. Special stains for acid fast bacilli and fungi are negative for organisms; matched controls are appropriate. Masood 02/14/18 MICROSCOPIC DESCRIPTION Slides are reviewed. GROSS DESCRIPTION Received is one container labeled with the patient's name and not further designated. The specimen consists of multiple irregular fragments of skin and soft tissue that in aggregate measure 2.5 x 2.5 x 0.5 cm. The skin piece is longitudinally bisected. The entire specimen is submitted in one cassette. / JEFFERY:rosendo 02/13/18 TC:2 CPT: 94827, 58131 x2
[2018-02-13 05:53] LABS: Absolute Lymphocyte Count 1.69 X10^3/ul (0.83-4.51); Absolute Neutrophil Count 3.1 X10^3/uL (2.0-7.7); Basophil# 0.02 X10^3/uL; Basophil% 0.4 % (0-1); Eosinophil# 0.17 X10^3/uL; Eosinophils% 3.1 % (0-5); Hematocrit 35.5 % (37-47); Hemoglobin 12.2 g/dl (12.0-15.0); Lymphocyte # 1.69 X10^3/ul (4.0); Lymphocyte % 30.8 % (19-41); Mean Corp Hgb Conc 34.4 g/gl (32-36); Mean Corpuscular Hgb 28.8 pg (27.0-32.0); Mean Corpuscular Volume 83.9 fL (81-99); Mean Platelet Vol. 10.2 fl (6.2-12.0); Monocyte# 0.45 X10^3/uL; Monocyte% 8.2 % (0-10); Neutrophil # 3.13 X10^3/uL (2.7-7.7); Neutrophil % 57.1 % (47-70); Platelet Count 226 K/mm3 (150-450); RBC Distribution Width CV 12.6 % (11.6-14.6); RBC Distribution Width SD 37.7 fl (35.1-43.9); Red Blood Count 4.23 M/mm3 (4.2-5.4); White Blood Count 5.5 K/mm3 (4.4-11.0)
[2018-02-13 05:56] LABS: Anion Gap 9 (5-15); BUN 10 mg/dL (7-18); BUN/Creat Ratio 18.2 RATIO (10-20); Calcium,Total 8.2 mg/dL (8.5-10.1); Chloride 105 mmol/L (98-107); Creatinine, Serum 0.55 mg/dL (0.55-1.02); EST Glomerular Filtration Rate 133 mL/min (>60); Est Glom Filt Rate - Afr Amer 161 mL/min (>60); Estimated Creatinine Clearance 142.65 ml/min; Glucose 196 mg/dL (74-106); Potassium 3.7 mmol/L (3.5-5.1); Sodium Level 139 mmol/L (136-145)
[2018-02-13 06:04] LABS: Vancomycin, Trough Level 7.4 ug/mL (5.0-15.0)
[2018-02-13 06:16] LABS: POSITIVE COUNT NO; POSITIVE DIFFERENTIAL NO; POSITIVE MORPHOLOGY NO
[2018-02-13] MEDS: Enoxaparin 40 MG/0.4 ML Syringe SC (06:32)
[2018-02-13] MEDS: Insulin Lispro 100 UNIT/ML INSULN.PEN SC ×2 (06:34→22:32)
[2018-02-13 06:55] LABS: Bedside Glucose 197 mg/dL (70-110)
--- NOTE | 2018-02-13 07:38 | PCM.RX.CS ---
Consult Pharmacy has been consulted to manage selected antiobiotic: Vancomycin Type of Consult: Follow-up Suspected Infection: Skin/Soft tissue Labs: Sodium 139 mmol/L (136-145) 02/13/18 05:22 Potassium 3.7 mmol/L (3.5-5.1) 02/13/18 05:22 Chloride 105 mmol/L (98-107) 02/13/18 05:22 Carbon Dioxide 25.0 mmol/L (21.0-32.0) 02/13/18 05:22 Anion Gap 9 (5-15) 02/13/18 05:22 BUN 10 mg/dL (7-18) 02/13/18 05:22 Creatinine 0.55 mg/dL (0.55-1.02) 02/13/18 05:22 Est GFR (MDRD) Af Amer 161 mL/min (>60) 02/13/18 05:22 Est GFR (MDRD) Non-Af 133 mL/min (>60) 02/13/18 05:22 BUN/Creatinine Ratio 18.2 RATIO (10-20) 02/13/18 05:22 Glucose 196 mg/dL (74-106) H 02/13/18 05:22 Vancomycin Trough 7.4 ug/mL (5.0-15.0) 02/13/18 05:22 Weight used for dosin kg Estimated Creatinine Clearance: > 100 Goal Trough: 10-15 mcg/mL Pharmacy Plan for Drug Dosing: Trough below goal. Recommend increase to 2000mg IV q12h, recheck prior to 4th dose per nomogram. Pharmacy Service will continue to monitor and adjust dosing as required. Follow-Up Labs: Trough Vancomycin - 02/15 @ 0600
--- NOTE | 2018-02-13 09:42 | PCM.PN.HOSP ---
Patient Problems: Active and Suspected Problems Facial cellulitis (Acute) Subjective: increased pain and swelling under her chin. No shortness of breath. No drooling, though does have some difficulty swallowing. Vitals/I&O's: Vital Signs Temp Pulse Resp BP Pulse Ox 36.8 C 86 18 134/85 H 98 02/13/18 07:51 02/13/18 07:51 02/13/18 07:51 02/13/18 07:51 02/13/18 07:51 Oxygen Delivery Method Room Air Weight: 94.892 kg Body Mass Index (BMI) 31.8 Finger Stick Blood Glucose 294 Intake and Output for Last 24 Hours 02/11/18 02/12/18 02/13/18 23:59 23:59 23:59 Intake Total 1122 / 1122 752 / 752 Balance 1122 / 1122 752 / 752 General: Alert, No apparent distress HEENT: Atraumatic, Normocephalic Oral: Moist Mucosa, No Gingival or Mucosal Lesions/ Ulcerations Neck: No Nodes, Thyroid Normal Size and Texture, - - Swelling and induration under left chin. Lungs: Clear to auscultation, Normal air movement, No rhonchi, No wheeze Cardiovascular: Regular rate, Regular Rhythm, Normal S1, Normal S2, No murmurs Abdomen: Bowel Sounds Present, Soft, Non Tender, Non-Distended, No Hepato-splenomegaly Skin: - - erythema under chin. induration under chin--no purulence expressed. Musculoskeletal: No Tenderness to Palpation of Joints or Extremities, No Muscle Wasting Psych/Mental Status: Normal Affect, Appropriate Laboratory Results 02/12/18 12:31: POC Glucose 266 H 02/12/18 17:09: POC Glucose 224 H 02/12/18 21:15: POC Glucose 240 H 02/13/18 05:22: Vancomycin Trough 7.4 02/13/18 05:22: WBC 5.5, RBC 4.23, Hgb 12.2, Hct 35.5 L, MCV 83.9, MCH 28.8, MCHC 34.4, RDW 12.6, RDW Differential 37.7, Plt Count 226, MPV 10.2, Immature Gran % (Auto) 0.400, Neut % (Auto) 57.1, Lymph % (Auto) 30.8, [place] % (Auto) 8.2, Eos % (Auto) 3.1, Baso % (Auto) 0.4, Absolute Neuts (auto) 3.1, Absolute Lymphs (auto) 1.69, Total Counted Not Reportable 02/13/18 05:22: Sodium 139, Potassium 3.7, Chloride 105, Carbon Dioxide 25.0, Anion Gap 9, BUN 10, Creatinine 0.55, Estim Creat Clear Calc 142.65, Est GFR (MDRD) Af Amer 161, Est GFR (MDRD) Non-Af 133, BUN/Creatinine Ratio 18.2, Glucose 196 H, Calcium 8.2 L 02/13/18 06:33: POC Glucose 197 H Current Medications Acetaminophen (Tylenol) 650 mg PO Q6H PRN PRN PRN Reason: Pain, headache, fever Last Admin: 02/12/18 22:19 Dose: 650 mg Amitriptyline HCl (Elavil) 50 mg PO QHS [facility] Last Admin: 02/12/18 21:19 Dose: 50 mg Aspirin ([facility]in, Baby) [facility] Last Admin: 02/13/18 09:39 Dose: Not Given Atorvastatin Calcium (Lipitor) 80 mg PO QHS [facility] Last Admin: 02/12/18 21:18 Dose: 80 mg Clopidogrel Bisulfate (Plavix) 75 mg PO DAILY [facility] Last Admin: 02/12/18 09:14 Dose: 75 mg Diphenhydramine HCl (Benadryl) 25 mg IV Q6H PRN PRN PRN Reason: ITCHING Last Admin: 02/12/18 22:12 Dose: 25 mg Enoxaparin Sodium (Lovenox) 40 mg SC DAILY@0600 [facility] Last Admin: 02/13/18 06:32 Dose: 40 mg Folic Acid (Folic Acid) 1 mg PO DAILY@0800 [facility] Last Admin: 02/13/18 09:39 Dose: Not Given Vancomycin HCl 1,500 mg/ (Sodium Chloride) 530 mls @ 250 mls/hr IV Q12H [facility] Stop: 02/13/18 12:00 Last Admin: 02/13/18 06:31 Dose: 250 mls/hr Sodium Chloride () 250 mls @ 15 mls/hr IV .[id number] PRN PRN Reason: SALINE FLUSH Vancomycin HCl 2,000 mg/ (Sodium Chloride) 540 mls @ 250 mls/hr IV Q12H [facility] Insulin Glargine (Lantus (Bkc)) 35 units SC BID [facility] Last Admin: 02/12/18 21:18 Dose: 35 u Insulin Human Lispro (Humalog Kwikpen (Bkc)) 10 unit SC 0800,1200,1700 [facility] Last Admin: 02/13/18 09:39 Dose: Not Given Insulin Human Lispro (Humalog Kwikpen (Bkc)) 0 unit SC ACHS [facility]; Protocol Last Admin: 02/13/18 06:34 Dose: 2 units Isosorbide Mononitrate (Imdur) 30 mg PO DAILY [facility] Last Admin: 02/12/18 09:14 Dose: 30 mg Magnesium Hydroxide (Milk Of Magnesia) 30 ml PO DAILY PRN PRN PRN Reason: Constipation Ondansetron HCl (Zofran) 4 mg IV Q6H PRN PRN PRN Reason: NAUSEA/VOMITING Oxycodone HCl (Oxyir) 5 - 10 mg PO Q4H PRN PRN PRN Reason: SEVERE PAIN (6-10/10) Last Admin: 02/12/18 17:12 Dose: 10 mg Pregabalin (Lyrica) 225 mg PO QHS [facility] Last Admin: 02/12/18 21:17 Dose: 225 mg Ranolazine (Ranexa) 1,000 mg PO BID [facility] Last Admin: 02/12/18 21:18 Dose: 1,000 mg Sertraline HCl (Zoloft) 100 mg PO DAILY [facility] Last Admin: 02/12/18 09:14 Dose: 100 mg Sodium Chloride () 5 - 30 ml IV UD PRN PRN Reason: SALINE FLUSH Last Admin: 02/12/18 12:44 Dose: 20 ml Medical Necessity - Tobacco Use Smoking Status: Never smoker Assessment/Plan All Active Problems Facial cellulitis (Acute) Lumbar stenosis (Resolved) 1. Facial cellulitis no abscess on CT, but noted on US had I+D at [place] with minimal drainage per patient--culture not performed per the patient. + screen for MRSA and MSSA continue vanc check culture results from [place]--if available. SHADIA Cabello, who will see the patient and likely take patient to OR today for I+D. 2. Breast lesion no active infection, scabbed over. 3. DM1 uncontrolled likely exacerbated by cellulitis monitor hold off on adjustments for now as patient is NPO. 4. DVT proph: LMWH. Code Visit Inpatient E&M: 87523 Subs Hosp L2
--- NOTE | 2018-02-13 09:45 | PN_ITS ---
Patient Problems: Active and Suspected Problems Facial cellulitis (Acute) Subjective: increased pain and swelling under her chin. No shortness of breath. No drooling, though does have some difficulty swallowing. Vitals/I&O's: Vital Signs Temp Pulse Resp BP Pulse Ox 36.8 C 86 18 134/85 H 98 02/13/18 07:51 02/13/18 07:51 02/13/18 07:51 02/13/18 07:51 02/13/18 07:51 Oxygen Delivery Method Room Air Weight: 94.892 kg Body Mass Index (BMI) 31.8 Finger Stick Blood Glucose 294 Intake and Output for Last 24 Hours 02/11/18 02/12/18 02/13/18 23:59 23:59 23:59 Intake Total 1122 / 1122 752 / 752 Balance 1122 / 1122 752 / 752 General: Alert, No apparent distress HEENT: Atraumatic, Normocephalic Oral: Moist Mucosa, No Gingival or Mucosal Lesions/ Ulcerations Neck: No Nodes, Thyroid Normal Size and Texture, - - Swelling and induration under left chin. Lungs: Clear to auscultation, Normal air movement, No rhonchi, No wheeze Cardiovascular: Regular rate, Regular Rhythm, Normal S1, Normal S2, No murmurs Abdomen: Bowel Sounds Present, Soft, Non Tender, Non-Distended, No Hepato- splenomegaly Skin: - - erythema under chin. induration under chin--no purulence expressed. Musculoskeletal: No Tenderness to Palpation of Joints or Extremities, No Muscle Wasting Psych/Mental Status: Normal Affect, Appropriate Laboratory Results 02/12/18 12:31: POC Glucose 266 H 02/12/18 17:09: POC Glucose 224 H 02/12/18 21:15: POC Glucose 240 H 02/13/18 05:22: Vancomycin Trough 7.4 02/13/18 05:22: WBC 5.5, RBC 4.23, Hgb 12.2, Hct 35.5 L, MCV 83.9, MCH 28.8, MCHC 34.4, RDW 12.6, RDW Differential 37.7, Plt Count 226, MPV 10.2, Immature Gran % (Auto) 0.400, Neut % (Auto) 57.1, Lymph % (Auto) 30.8, [place] % (Auto) 8.2, Eos % (Auto) 3.1, Baso % (Auto) 0.4, Absolute Neuts (auto) 3.1, Absolute Lymphs (auto) 1.69, Total Counted Not Reportable 02/13/18 05:22: Sodium 139, Potassium 3.7, Chloride 105, Carbon Dioxide 25.0, A nion Gap 9, BUN 10, Creatinine 0.55, Estim Creat Clear Calc 142.65, Est GFR (MDRD) Af Amer 161, Est GFR (MDRD) Non-Af 133, BUN/Creatinine Ratio 18.2, Glucose 196 H, Calcium 8.2 L 02/13/18 06:33: POC Glucose 197 H Current Medications Acetaminophen (Tylenol) 650 mg PO Q6H PRN PRN PRN Reason: Pain, headache, fever Last Admin: 02/12/18 22:19 Dose: 650 mg Amitriptyline HCl (Elavil) 50 mg PO QHS [facility] Last Admin: 02/12/18 21:19 Dose: 50 mg Aspirin ([facility], Baby) [facility] Last Admin: 02/13/18 09:39 Dose: Not Given Atorvastatin Calcium (Lipitor) 80 mg PO QHS [facility] Last Admin: 02/12/18 21:18 Dose: 80 mg Clopidogrel Bisulfate (Plavix) 75 mg PO DAILY [facility] Last Admin: 02/12/18 09:14 Dose: 75 mg Diphenhydramine HCl (Benadryl) 25 mg IV Q6H PRN PRN PRN Reason: ITCHING Last Admin: 02/12/18 22:12 Dose: 25 mg Enoxaparin Sodium (Lovenox) 40 mg SC DAILY@0600 [facility] Last Admin: 02/13/18 06:32 Dose: 40 mg Folic Acid (Folic Acid) 1 mg PO DAILY@0800 [facility] Last Admin: 02/13/18 09:39 Dose: Not Given Vancomycin HCl 1,500 mg/ (Sodium Chloride) 530 mls @ 250 mls/hr IV Q12H [facility] Stop: 02/13/18 12:00 Last Admin: 02/13/18 06:31 Dose: 250 mls/hr Sodium Chloride () 250 mls @ 15 mls/hr IV .[id number] PRN PRN Reason: SALINE FLUSH Vancomycin HCl 2,000 mg/ (Sodium Chloride) 540 mls @ 250 mls/hr IV Q12H [facility] Insulin Glargine (Lantus (Bkc)) 35 units SC BID [facility] Last Admin: 02/12/18 21:18 Dose: 35 u Insulin Human Lispro (Humalog Kwikpen (Bkc)) 10 unit SC 0800,1200,1700 [facility] Last Admin: 02/13/18 09:39 Dose: Not Given Insulin Human Lispro (Humalog Kwikpen (Bkc)) 0 unit SC ACHS [facility]; Protocol Last Admin: 02/13/18 06:34 Dose: 2 units Isosorbide Mononitrate (Imdur) 30 mg PO DAILY [facility] Last Admin: 02/12/18 09:14 Dose: 30 mg Magnesium Hydroxide (Milk Of Magnesia) 30 ml PO DAILY PRN PRN PRN Reason: Constipation Ondansetron HCl (Zofran) 4 mg IV Q6H PRN PRN PRN Reason: NAUSEA/VOMITING Oxycodone HCl (Oxyir) 5 - 10 mg PO Q4H PRN PRN PRN Reason: SEVERE PAIN (6-10/10) Last Admin: 02/12/18 17:12 Dose: 10 mg Pregabalin (Lyrica) 225 mg PO QHS [facility] Last Admin: 02/12/18 21:17 Dose: 225 mg Ranolazine (Ranexa) 1,000 mg PO BID [facility] Last Admin: 02/12/18 21:18 Dose: 1,000 mg Sertraline HCl (Zoloft) 100 mg PO DAILY [facility] Last Admin: 02/12/18 09:14 Dose: 100 mg Sodium Chloride () 5 - 30 ml IV UD PRN PRN Reason: SALINE FLUSH Last Admin: 02/12/18 12:44 Dose: 20 ml Medical Necessity - Tobacco Use Smoking Status: Never smoker Assessment/Plan All Active Problems Facial cellulitis (Acute) Lumbar stenosis (Resolved) 1. Facial cellulitis * no abscess on CT, but noted on US * had I+D at [place] with minimal drainage per patient--culture not performed per the patient. * + screen for MRSA and MSSA * continue vanc * check culture results from [place]--if available. * SHADIA Cabello, who will see the patient and likely take patient to OR today for I+D. 2. Breast lesion * no active infection, scabbed over. 3. DM1 * uncontrolled * likely exacerbated by cellulitis * monitor * hold off on adjustments for now as patient is NPO. 4. DVT proph: LMWH. Code Visit Inpatient E&M: [id number] Subs Hosp L2
--- NOTE | 2018-02-13 09:48 | EKG12_ITS ---
Test Reason : POSTOP Blood Pressure : / mmHG Vent. Rate : 088 BPM Atrial Rate : 088 BPM P-R Int : 172 ms QRS Dur : 092 ms QT Int : 384 ms P-R-T Axes : 039 -22 039 degrees QTc Int : 464 ms Normal sinus rhythm Normal ECG When compared with ECG of 13-FEB-2018 09:59, MANUAL COMPARISON REQUIRED, DATA IS UNCONFIRMED Confirmed by SARA MITCHELL, DAMON ([id number]), newspaper editor managing PABLO SHEFFIELD ([id number]) on 02/18/2018 11:10:43 AM Referred By: CHERI Confirmed By:DAMON RUIZ MD
--- NOTE | 2018-02-13 09:54 | NURSING ---
REPORT CALLED TO MARIA VICTORIA PRATT IN A.C.
--- NOTE | 2018-02-13 10:13 | PCM.CONS.GEN ---
Problem List (1) Neck abscess Status: Acute Reason for Consult Date of Consultation: 02/13/18 History of Present Illness: The patient is a 37 year old F with a submental anterior neck abscess. She was admitted to the [facility] on February 11. I was asked to see her today by . The patient had a previous right hand finger infection. That was treated at [facility]. She developed 2 small areas of the right breast. She did developed an anterior neck area of erythema. 2 days ago at [facility] she had that incised and drained. The area became more tender so she presented to the [facility] and was admitted on February 11, 2018. Infectious disease has been consulted. The anterior neck area has worsened. On admission a CT scan suggested diffuse cellulitis. An ultrasound was obtained today suggesting abscess. Recommendations from Dr. Parker was for drainage. I have been asked to see the patient to facilitate this. Patient states approximately 4 years ago she had a severe myocardial infarction. She has had significant cardiac disease. 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 Yong Ma. The patient absolutely does not feel that she can tolerate a bedside performed incision and drainage debridement. Past Medical History Past Medical History (Chronic Problems): Chronic Problems Syncope (Chronic) Obesity (BMI 30.0-34.9) (Chronic) Anxiety and depression (Chronic) Hyperlipidemia (Chronic) Type I diabetes mellitus (Chronic) Coronary artery disease (Chronic) Status post stents Hypertension (Chronic) Chronic pain (Chronic) Allergies Iodinated Contrast- Oral and IV Dye [Iodinated Contrast Media - IV Dye] Allergy (Verified 11/22/17 18:24) Hives nitroglycerin [From Nitro-Bid] Allergy (Verified 11/22/17 18:24) DROPS HR LOW BP Penicillins Allergy (Verified 11/22/17 18:24) Rash Sulfa (Sulfonamide Antibiotics) Allergy (Verified 11/22/17 18:24) Hives Beta-Blockers (Beta-Adrenergic Bloc Adverse Reaction (Verified 11/22/17 18:24) Low blood pressure gabapentin [From Neurontin] Adverse Reaction (Verified 11/22/17 18:24) Upset Stomach metformin Adverse Reaction (Verified 11/22/17 18:24) Upset Stomach nitroglycerin IV Allergy (Uncoded 11/22/17 18:24) DROPS HR nitro drips per pt will drop bp quick and will bottom out Home Medications: Ambulatory Orders Medication Instructions Recorded Aspirin [Aspirin, Baby] 81 mg PO DAILY 03/04/15 Insulin Glargine [Lantus SoloStar 35 units SC BID 03/04/15 Pen] Magnesium Oxide [Mag-Ox 400] 800 mg PO DAILY 03/04/15 Insulin Aspart [Novolog Vial] 10 unit SQ TIDCM 11/24/15 Sertraline HCl [Zoloft] 100 mg PO DAILY 11/25/15 Nitroglycerin [Nitrostat] 0.4 mg SUBLINGUAL Q5M PRN #1 bottle 11/26/15 Insulin Aspart [Novolog Flexpen] See Protocol SC TIDCM 03/20/16 Folic Acid 1 mg PO DAILY@0800 04/26/17 ranolazine ER 1,000 mg 1,000 mg PO BID #60 tab 05/29/17 tablet,extended release,12 hr Amitriptyline HCl 50 mg PO QHS 08/10/17 atorvastatin 80 mg tablet 80 mg PO QHS #30 tab 08/13/17 clopidogrel 75 mg tablet 75 mg PO DAILY #90 tab 08/27/17 isosorbide mononitrate ER 30 mg 30 mg PO DAILY #90 tab 11/07/17 tablet,extended release 24 hr Pregabalin [Lyrica] 225 mg PO QHS 02/11/18 Surgical History: - - PCI ?2, bilateral tubal ligation, back surgery with L4-L5 rods and screws in place, tonsillectomy. 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: Anxiety, Depression NURSE PRACTITIONER History: No pertinent NURSE PRACTITIONER history Lives: Spouse/ Significant Other Smoking Status: Never smoker Alcohol: None Drugs: None - *Family History Paternal History Items: Heart Disease Maternal History Items: Stroke Review of Systems HEENT: Reports: - - Increased anterior neck pain swelling and firmness and erythema Patient Problems: Active and Suspected Problems Neck abscess (Acute) Facial cellulitis (Acute) - Physical Exam General: Alert, Oriented x3, Cooperative, No apparent distress HEENT: - - Submental anterior neck evidence of 8 mm diameter incision site with area of induration measuring approximately 6 x 5 cm. No deep fixation. Erythema. Mild tenderness Vital Signs Temp Pulse Resp BP Pulse Ox 98.3 F 86 18 134/85 H 98 02/13/18 09:43 02/13/18 09:43 02/13/18 09:43 02/13/18 09:43 02/13/18 09:43 Oxygen Delivery Method Room Air Weight: 209 lb 3.217 oz Body Mass Index (BMI) 31.8 Finger Stick Blood Glucose 294 Intake and Output for Last 24 Hours 02/11/18 02/12/18 02/13/18 23:59 23:59 23:59 Intake Total 1122 / 1122 752 / 752 Balance 1122 / 1122 752 / 752 Laboratory Tests Past 24 Hrs 02/13/18 02/13/18 02/13/18 05:22 05:22 05:22 WBC 5.5 RBC 4.23 Hgb 12.2 Hct 35.5 L MCV 83.9 MCH 28.8 MCHC 34.4 RDW 12.6 RDW Differential 37.7 Plt Count 226 MPV 10.2 Immature Gran % (Auto) 0.400 Neut % (Auto) 57.1 Lymph % (Auto) 30.8 [place] % (Auto) 8.2 Eos % (Auto) 3.1 Baso % (Auto) 0.4 Absolute Neuts (auto) 3.1 Absolute Lymphs (auto) 1.69 Total Counted Not Reportable Sodium 139 Potassium 3.7 Chloride 105 Carbon Dioxide 25.0 Anion Gap 9 BUN 10 Creatinine 0.55 Estim Creat Clear Calc 142.65 Est GFR (MDRD) Af Amer 161 Est GFR (MDRD) Non-Af 133 BUN/Creatinine Ratio 18.2 Glucose 196 H Calcium 8.2 L Vancomycin Trough 7.4 POC Glucose 02/13/18 02/12/18 02/12/18 06:33 21:15 17:09 POC Glucose 197 H 240 H 224 H 02/12/18 12:31 POC Glucose 266 H Assessment/Plan All Active Problems Neck abscess (Acute) Facial cellulitis (Acute) Lumbar stenosis (Resolved) Readings are consistent with a focal area of severe cellulitis with likely evolving abscess submental anterior neck. I recommend a debridement of this area. I suspect a more all involving inflammation and not simply drainable pus. The patient is aware that a transverse elliptical excision of skin and subcutaneous tissue was anticipated. She is aware that wound packing will be initiated but that she may then eventually even require a wound VAC. She has had an opportunity to ask and have questions answered. We will expedite her care. Mario Cabello M.D., F.A.C.S.
--- NOTE | 2018-02-13 10:19 | CON.PCM_ITS ---
Problem List (1) Neck abscess Status: Acute Reason for Consult Date of Consultation: 02/13/18 History of Present Illness: The patient is a 37 year old F with a submental anterior neck abscess. She was admitted to the [facility] on February 11. I was asked to see her today by . The patient had a previous right hand finger infection. That was treated at [facility]. She developed 2 small areas of the right breast. She did developed an anterior neck area of erythema. 2 days ago at [facility] she had that incised and drained. The area became more tender so she presented to the [facility] and was admitted on February 11, 2018. Infectious disease has been consulted. The anterior neck area has worsened. On admission a CT scan suggested diffuse cellulitis. An ultrasound was obtained today suggesting abscess. Recommendations from Dr. Parker was for drainage. I have been asked to see the patient to facilitate this. Patient states approximately 4 years ago she had a severe myocardial infarction. She has had significant cardiac disease. Her mobile developer is Dr. Yong Ma. The patient absolutely does not feel that she can tolerate a bedside performed incision and drainage debridement. Past Medical History Past Medical History (Chronic Problems): Chronic Problems Syncope (Chronic) Obesity (BMI 30.0-34.9) (Chronic) Anxiety and depression (Chronic) Hyperlipidemia (Chronic) Type I diabetes mellitus (Chronic) Coronary artery disease (Chronic) Status post stents Hypertension (Chronic) Chronic pain (Chronic) Allergies Iodinated Contrast- Oral and IV Dye [Iodinated Contrast Media - IV Dye] Allergy (Verified 11/22/17 18:24) Hives nitroglycerin [From Nitro-Bid] Allergy (Verified 11/22/17 18:24) DROPS HR LOW BP Penicillins Allergy (Verified 11/22/17 18:24) Rash Sulfa (Sulfonamide Antibiotics) Allergy (Verified 11/22/17 18:24) Hives Beta-Blockers (Beta-Adrenergic Bloc Adverse Reaction (Verified 11/22/17 18:24) Low blood pressure gabapentin [From Neurontin] Adverse Reaction (Verified 11/22/17 18:24) Upset Stomach metformin Adverse Reaction (Verified 11/22/17 18:24) Upset Stomach nitroglycerin IV Allergy (Uncoded 11/22/17 18:24) DROPS HR nitro drips per pt will drop bp quick and will bottom out Home Medications: Ambulatory Orders Medication Instructions Recorded Aspirin [Aspirin, Baby] 81 mg PO DAILY 03/04/15 Insulin Glargine [Lantus SoloStar 35 units SC BID 03/04/15 Pen] Magnesium Oxide [Mag-Ox 400] 800 mg PO DAILY 03/04/15 Insulin Aspart [Novolog Vial] 10 unit SQ TIDCM 11/24/15 Sertraline HCl [Zoloft] 100 mg PO DAILY 11/25/15 Nitroglycerin [Nitrostat] 0.4 mg SUBLINGUAL Q5M PRN #1 bottle 11/26/15 Insulin Aspart [Novolog Flexpen] See Protocol SC TIDCM 03/20/16 Folic Acid 1 mg PO DAILY@0800 04/26/17 ranolazine ER 1,000 mg 1,000 mg PO BID #60 tab 05/29/17 tablet,extended release,12 hr Amitriptyline HCl 50 mg PO QHS 08/10/17 atorvastatin 80 mg tablet 80 mg PO QHS #30 tab 08/13/17 clopidogrel 75 mg tablet 75 mg PO DAILY #90 tab 08/27/17 isosorbide mononitrate ER 30 mg 30 mg PO DAILY #90 tab 11/07/17 tablet,extended release 24 hr Pregabalin [Lyrica] 225 mg PO QHS 02/11/18 Surgical History: - - PCI ?2, bilateral tubal ligation, back surgery with L4-L5 rods and screws in place, tonsillectomy. 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: Anxiety, Depression OPERATIONS SYSTEMS SPECIALIST History: No pertinent OPERATIONS SYSTEMS SPECIALIST history Lives: Spouse/ Significant Other Smoking Status: Never smoker Alcohol: None Drugs: None - *Family History Paternal History Items: Heart Disease Maternal History Items: Stroke Review of Systems HEENT: Reports: - - Increased anterior neck pain swelling and firmness and erythema Patient Problems: Active and Suspected Problems Neck abscess (Acute) Facial cellulitis (Acute) - Physical Exam General: Alert, Oriented x3, Cooperative, No apparent distress HEENT: - - Submental anterior neck evidence of 8 mm diameter incision site with area of induration measuring approximately 6 x 5 cm. No deep fixation. Erythema. Mild tenderness Vital Signs Temp Pulse Resp BP Pulse Ox 98.3 F 86 18 134/85 H 98 02/13/18 09:43 02/13/18 09:43 02/13/18 09:43 02/13/18 09:43 02/13/18 09:43 Oxygen Delivery Method Room Air Weight: 209 lb 3.217 oz Body Mass Index (BMI) 31.8 Finger Stick Blood Glucose 294 Intake and Output for Last 24 Hours 02/11/18 02/12/18 02/13/18 23:59 23:59 23:59 Intake Total 1122 / 1122 752 / 752 Balance 1122 / 1122 752 / 752 Laboratory Tests Past 24 Hrs 02/13/18 02/13/18 02/13/18 05:22 05:22 05:22 WBC 5.5 RBC 4.23 Hgb 12.2 Hct 35.5 L MCV 83.9 MCH 28.8 MCHC 34.4 RDW 12.6 RDW Differential 37.7 Plt Count 226 MPV 10.2 Immature Gran % (Auto) 0.400 Neut % (Auto) 57.1 Lymph % (Auto) 30.8 [place] % (Auto) 8.2 Eos % (Auto) 3.1 Baso % (Auto) 0.4 Absolute Neuts (auto) 3.1 Absolute Lymphs (auto) 1.69 Total Counted Not Reportable Sodium 139 Potassium 3.7 Chloride 105 Carbon Dioxide 25.0 Anion Gap 9 BUN 10 Creatinine 0.55 Estim Creat Clear Calc 142.65 Est GFR (MDRD) Af Amer 161 Est GFR (MDRD) Non-Af 133 BUN/Creatinine Ratio 18.2 Glucose 196 H Calcium 8.2 L Vancomycin Trough 7.4 POC Glucose 02/13/18 02/12/18 02/12/18 06:33 21:15 17:09 POC Glucose 197 H 240 H 224 H 02/12/18 12:31 POC Glucose 266 H Assessment/Plan All Active Problems Neck abscess (Acute) Facial cellulitis (Acute) Lumbar stenosis (Resolved) Readings are consistent with a focal area of severe cellulitis with likely evolving abscess submental anterior neck. I recommend a debridement of this area. I suspect a more all involving inflammation and not simply drainable pus. The patient is aware that a transverse elliptical excision of skin and subcutaneous tissue was anticipated. She is aware that wound packing will be initiated but that she may then eventually even require a wound VAC. She has had an opportunity to ask and have questions answered. We will expedite her care. Mario Cabello M.D., F.A.C.S.
[2018-02-13 10:53] LABS: AST(SGOT) 13 U/L (15-37); Alanine Aminotransfer ALT/SGPT 21 U/L (13-56); Albumin, Serum 3.2 g/dL (3.2-5.0); Alkaline Phosphatase 72 U/L (45-117); Bilirubin, Direct 0.15 mg/dL (0.00-0.30); Globulin 3.7 g/dL (2.2-4.2); Protein, Total 6.9 g/dL (6.4-8.2)
--- NOTE | 2018-02-13 10:53 | PCM.OPRPT ---
Problem List (1) Neck abscess Status: Acute Report of Operation Date of Procedure: 02/13/18 Pre-Operative Diagnosis: Submental anterior neck abscess Post-Operative Diagnosis: Same Surgery/Procedure Performed:: Anterior neck wound debridement Description of Surgical Findings:: Timeout informed consent was obtained. 36 review was taken out from. She was placed upon the table. She underwent general anesthesia. Head was gently extended. She is already on therapeutic vancomycin. The anterior neck was sterilely prepped and draped. A transverse ellipse of skin and subcutaneous fat measuring 3.5 x 1 cm was excised. And so doing loculated pockets of purulence were encountered. 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 I sharply scalpel debrided indurated subcutaneous tissue to remove all grossly infected disease. This did not penetrate the deep fascia. Hemostasis was obtained with electrocautery and a simple suture of interrupted 3-0 Vicryl. The bulk of the indurated infected disease was felt to have been excised. The wound was packed with saline gauze. Cover dressings applied. The theodore-incisional areas anesthetized with 15 cc of 0.5% Marcaine. Cover dressings applied. The specimen includes the debrided abscess tissue skin and subcutaneous material. No drains blood packing. Blood loss minimal. She was taken to the recovery area in satisfactory condition. Mario Cabello M.D., F.A.C.S. Type of Anesthesia:: General Anesthesiologist: Sheree Reid
[2018-02-13 10:56] LABS: Hemoglobin A1c 11.4 % (4.2-6.3)
--- NOTE | 2018-02-13 10:56 | OP.PCM_ITS ---
Problem List (1) Neck abscess Status: Acute Report of Operation Date of Procedure: 02/13/18 Pre-Operative Diagnosis: Submental anterior neck abscess Post-Operative Diagnosis: Same Surgery/Procedure Performed:: Anterior neck wound debridement Description of Surgical Findings:: Timeout informed consent was obtained. 36 review was taken out from. She was placed upon the table. She underwent general anesthesia. Head was gently extended. She is already on therapeutic vancomycin. The anterior neck was sterilely prepped and draped. A transverse ellipse of skin and subcutaneous fat measuring 3.5 x 1 cm was excised. And so doing loculated pockets of purulence were encountered. 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 I sharply scalpel debrided indurated subcutaneous tissue to remove all grossly infected disease. This did not penetrate the deep fascia. Hemostasis was obtained with electrocautery and a simple suture of interrupted 3-0 Vicryl. The bulk of the indurated infected disease was felt to have been excised. The wound was packed with saline gauze. Cover dressings applied. The theodore- incisional areas anesthetized with 15 cc of 0.5% Marcaine. Cover dressings applied. The specimen includes the debrided abscess tissue skin and subcutaneous material. No drains blood packing. Blood loss minimal. She was taken to the recovery area in satisfactory condition. Mario Cabello M.D., F.A.C.S. Type of Anesthesia:: General Anesthesiologist: Sheree Reid
[2018-02-13 11:21] LABS: Bedside Glucose 202 mg/dL (70-110)
[2018-02-13 11:53] LABS: Prothrombin Time (Protime)PT. 12.8 SECONDS (11.7-14.9)
[2018-02-13 11:54] LABS: Partial Thromboplast Time 27.7 Seconds (24.1-36.2)
[2018-02-13] MEDS: 0.9% Normal Saline 1,000 ML 125 ML IV (12:37)
[2018-02-13] MEDS: Morphine 2 MG/ML Syringe IV (14:47)
[2018-02-13] MEDS: 0.9% NaCl Peripheral Flush Adult/Peds IV (14:47)
[2018-02-13 17:01] LABS: Bedside Glucose 155 mg/dL (70-110)
[2018-02-13] MEDS: oxyCODONE 5 MG Tablet PO ×2 (17:35→22:24)
[2018-02-13] MEDS: Pregabalin 75 MG Capsule 225 MG PO (22:25)
[2018-02-13] MEDS: Ranolazine 500 MG Tablet 1000 MG PO (22:28)
[2018-02-13] MEDS: Magnesium Hydroxide 30 ML UDC PO (22:28)
[2018-02-13] MEDS: Atorvastatin Calcium 80 MG Tablet PO (22:38)
[2018-02-13] MEDS: Amitriptyline 25 MG Tablet 50 MG PO (22:38)
[2018-02-13 22:40] LABS: Bedside Glucose 240 mg/dL (70-110)
[2018-02-14 00:30] VITALS: BP 107/69; PULSE 84; RESP 18; TEMP 36.7; O2SAT 94
[2018-02-14] MEDS: oxyCODONE 5 MG Tablet PO (04:20)
[2018-02-14 04:28] VITALS: BP 112/76; PULSE 84; RESP 18; TEMP 36.8; O2SAT 97
[2018-02-14] MEDS: Morphine 2 MG/ML Syringe IV ×2 (05:33→14:02)
--- NOTE | 2018-02-14 05:58 | PCM.PN.SRG ---
Patient Problems: Active and Suspected Problems Neck abscess (Acute) Facial cellulitis (Acute) Subjective: Pt reasonable comfortable First dressing change last night rather ouchy - Physical Exam HEENT: - - residual induration, easily bleeding tissue, healthy, decreased peripheral erythema Vital Signs Temp Pulse Resp BP Pulse Ox 98.2 F 84 18 112/76 97 02/14/18 04:28 02/14/18 04:28 02/14/18 04:28 02/14/18 04:28 02/14/18 04:28 Oxygen Flow Rate (L/min) 2 Oxygen Delivery Method Room Air Weight: 209 lb 3.217 oz Body Mass Index (BMI) 31.8 Finger Stick Blood Glucose 202 Intake and Output for Last 24 Hours 02/12/18 02/13/18 02/14/18 23:59 23:59 23:59 Intake Total 752 / 752 2643 / 2643 448 / 448 Output Total 1000 / 1000 1500 / 1500 Balance 752 / 752 1643 / 1643 -1052 / -1052 Laboratory Tests Past 24 Hrs 02/13/18 02/13/18 02/13/18 05:22 05:22 10:18 WBC 5.5 RBC 4.23 Hgb 12.2 Hct 35.5 L MCV 83.9 MCH 28.8 MCHC 34.4 RDW 12.6 RDW Differential 37.7 Plt Count 226 MPV 10.2 Immature Gran % (Auto) 0.400 Neut % (Auto) 57.1 Lymph % (Auto) 30.8 [place] % (Auto) 8.2 Eos % (Auto) 3.1 Baso % (Auto) 0.4 Absolute Neuts (auto) 3.1 Absolute Lymphs (auto) 1.69 Total Counted Not Reportable PT INR APTT Hemoglobin A1c 11.4 H Total Bilirubin Direct Bilirubin AST ALT Alkaline Phosphatase Troponin I Total Protein Albumin Globulin Vancomycin Trough 7.4 02/13/18 02/13/18 02/13/18 10:18 10:18 11:26 WBC RBC Hgb Hct MCV MCH MCHC RDW RDW Differential Plt Count MPV Immature Gran % (Auto) Neut % (Auto) Lymph % (Auto) [place] % (Auto) Eos % (Auto) Baso % (Auto) Absolute Neuts (auto) Absolute Lymphs (auto) Total Counted PT 12.8 INR 1.0 APTT 27.7 Hemoglobin A1c Total Bilirubin 0.50 Direct Bilirubin 0.15 AST 13 L ALT 21 Alkaline Phosphatase 72 Troponin I < 0.015 Total Protein 6.9 Albumin 3.2 Globulin 3.7 Vancomycin Trough POC Glucose 02/13/18 02/13/18 02/13/18 22:31 16:35 11:14 POC Glucose 240 H 155 H 202 H 02/13/18 06:33 POC Glucose 197 H Medical Necessity - Tobacco Use Smoking Status: Never smoker Assessment/Plan All Active Problems Neck abscess (Acute) Facial cellulitis (Acute) Lumbar stenosis (Resolved) Debrided area is appropriate with no obvious pus Once pt is comfortable with saline wet to dry she would be good for discharge Plan surgical followup in 10-14 days
[2018-02-14] MEDS: Enoxaparin 40 MG/0.4 ML Syringe SC (06:12)
[2018-02-14 06:34] LABS: Absolute Lymphocyte Count 1.69 X10^3/ul (0.83-4.51); Absolute Neutrophil Count 2.7 X10^3/uL (2.0-7.7); Basophil# 0.01 X10^3/uL; Basophil% 0.2 % (0-1); Eosinophil# 0.18 X10^3/uL; Eosinophils% 3.6 % (0-5); Hematocrit 36.2 % (37-47); Hemoglobin 11.9 g/dl (12.0-15.0); Lymphocyte # 1.69 X10^3/ul (4.0); Lymphocyte % 33.5 % (19-41); Mean Corp Hgb Conc 32.9 g/gl (32-36); Mean Corpuscular Hgb 28.3 pg (27.0-32.0); Mean Platelet Vol. 9.7 fl (6.2-12.0); Monocyte# 0.41 X10^3/uL; Monocyte% 8.1 % (0-10); Neutrophil # 2.74 X10^3/uL (2.7-7.7); Neutrophil % 54.4 % (47-70); Platelet Count 221 K/mm3 (150-450); RBC Distribution Width SD 41.3 fl (35.1-43.9); Red Blood Count 4.21 M/mm3 (4.2-5.4)
[2018-02-14 06:37] LABS: POSITIVE COUNT NO; POSITIVE DIFFERENTIAL NO; POSITIVE MORPHOLOGY NO
[2018-02-14 06:54] LABS: Anion Gap 4 (5-15); BUN 6 mg/dL (7-18); BUN/Creat Ratio 11.9 RATIO (10-20); Calcium,Total 8.4 mg/dL (8.5-10.1); Chloride 104 mmol/L (98-107); EST Glomerular Filtration Rate 147 mL/min (>60); Est Glom Filt Rate - Afr Amer 178 mL/min (>60); Estimated Creatinine Clearance 156.91 ml/min; Glucose 161 mg/dL (74-106); Potassium 3.7 mmol/L (3.5-5.1); Sodium Level 139 mmol/L (136-145)
[2018-02-14 08:30] VITALS: BP 117/80; PULSE 89; RESP 18; TEMP 36.6; O2SAT 100
[2018-02-14 08:55] LABS: Bedside Glucose 144 mg/dL (70-110)
[2018-02-14] MEDS: Folic Acid 1 MG Tablet PO (09:04)
[2018-02-14] MEDS: Aspirin 81 MG TAB.CHEW PO (09:04)
[2018-02-14] MEDS: Insulin Lispro 100 UNIT/ML INSULN.PEN 10 UNIT SC ×3 (09:05→17:33)
[2018-02-14] MEDS: Sertraline 100 MG Tablet PO (09:06)
[2018-02-14] MEDS: Ranolazine 500 MG Tablet 1000 MG PO ×2 (09:06→21:48)
[2018-02-14] MEDS: Isosorbide Mononitrate 30 MG Tablet PO (09:06)
[2018-02-14] MEDS: Clopidogrel Bisulfate 75 MG Tablet PO (09:06)
--- NOTE | 2018-02-14 10:17 | CASEMGMT ---
RN LAKSHMI NOTE: Spoke with pt re: wet-to-dry dressing changes. 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 Pt declines wanting/needing HHC at this time. Made aware if she would like HHC after discharge, to follow up with her PCP. Pt voiced understanding. CM to follow for any discharge planning needs. Riya FARR RN CM
--- NOTE | 2018-02-14 11:16 | PCM.PN.ID ---
Patient Problems: Active and Suspected Problems Neck abscess (Acute) Facial cellulitis (Acute) Subjective: Chin is sore s/p OR. No fever, no n/v/d. - Physical Exam General: Alert, Cooperative, No apparent distress Lungs: Clear to auscultation, Normal air movement Cardiovascular: Regular rate, Regular Rhythm Abdomen: Soft, Non Tender, Non-Distended Skin: Incision - bandaged Vital Signs Temp Pulse Resp BP Pulse Ox 97.8 F 89 18 117/80 100 02/14/18 08:30 02/14/18 08:30 02/14/18 08:30 02/14/18 08:30 02/14/18 08:30 Oxygen Flow Rate (L/min) 2 Oxygen Delivery Method Room Air Weight: 94.892 kg Body Mass Index (BMI) 31.8 Finger Stick Blood Glucose 202 Intake and Output for Last 24 Hours 02/12/18 02/13/18 02/14/18 23:59 23:59 23:59 Intake Total 752 / 752 2643 / 2643 448 / 448 Output Total 1000 / 1000 1500 / 1500 Balance 752 / 752 1643 / 1643 -1052 / -1052 Microbiology Past 72 Hours 02/13/18 10:40 Wound Culture - Preliminary Submandibular Abscess Staphylococcus aureus Laboratory Tests Past 24 Hrs 02/13/18 02/13/18 02/14/18 10:18 11:26 06:10 WBC 5.0 RBC 4.21 Hgb 11.9 L Hct 36.2 L MCV 86.0 MCH 28.3 MCHC 32.9 RDW 13.0 RDW Differential 41.3 Plt Count 221 MPV 9.7 Immature Gran % (Auto) 0.200 Neut % (Auto) 54.4 Lymph % (Auto) 33.5 [place] % (Auto) 8.1 Eos % (Auto) 3.6 Baso % (Auto) 0.2 Absolute Neuts (auto) 2.7 Absolute Lymphs (auto) 1.69 Total Counted Not Reportable PT 12.8 INR 1.0 APTT 27.7 Sodium Potassium Chloride Carbon Dioxide Anion Gap BUN Creatinine Estim Creat Clear Calc Est GFR (MDRD) Af Amer Est GFR (MDRD) Non-Af BUN/Creatinine Ratio Glucose Calcium Troponin I < 0.015 02/14/18 06:10 WBC RBC Hgb Hct MCV MCH MCHC RDW RDW Differential Plt Count MPV Immature Gran % (Auto) Neut % (Auto) Lymph % (Auto) [place] % (Auto) Eos % (Auto) Baso % (Auto) Absolute Neuts (auto) Absolute Lymphs (auto) Total Counted PT INR APTT Sodium 139 Potassium 3.7 Chloride 104 Carbon Dioxide 31.0 Anion Gap 4 L BUN 6 L Creatinine 0.50 L Estim Creat Clear Calc 156.91 Est GFR (MDRD) Af Amer 178 Est GFR (MDRD) Non-Af 147 BUN/Creatinine Ratio 11.9 Glucose 161 H Calcium 8.4 L Troponin I POC Glucose 02/14/18 02/13/18 02/13/18 08:38 22:31 16:35 POC Glucose 144 H 240 H 155 H 02/13/18 11:14 POC Glucose 202 H Medical Necessity - Tobacco Use Smoking Status: Never smoker Route of nutrition/ use of supplements: [] Nutritional Intake: [] IV Site: [] Wilson Catheter: [] - Assessment/Plan Antibiotics: [] Assessment/Plan: [] Active and Suspected Problems Facial cellulitis (Acute) MRSA chin abscess - now s/p I&D 02/[address] Cabello. Cont vanc for now. Has rash/n/v/feeling very ill with PCN, amox, and keflex. With her and her daughter having MRSA skin infections, recommend 5 day course of hibiclens wash qday with bid mupirocin to nares along with washing all sheets/towels in hot water. She says daughter is scheduled to see peds ID. Likely po doxy at discharge depending on final cx result. Scalp and breast lesions are dry and minimally indurated. Will follow
[2018-02-14 11:31] LABS: Bedside Glucose 226 mg/dL (70-110)
[2018-02-14] MEDS: Insulin Lispro 100 UNIT/ML INSULN.PEN SC ×3 (12:34→21:51)
--- NOTE | 2018-02-14 15:42 | CASEMGMT ---
MARIA VICTORIA MARTINS NOTE: RNLois, reports that pt is now interested in HHC for dressing changes. MARIA VICTORIA MARTINS to room to talk with pt and she states she would like HHC. Given list of HHC Agencies that take Bui insurance. Pt states will look over the list and let MARIA VICTORIA MARTINS know what her preferences are tomorrow. Dudley FARR RN, CM
[2018-02-14 16:55] LABS: Bedside Glucose 228 mg/dL (70-110)
--- NOTE | 2018-02-14 18:10 | PN_ITS ---
Patient Problems: Active and Suspected Problems Neck abscess (Acute) Subjective: Patient seen and examined today, white blood cell count today remain normal, she was afebrile. Patient is complained of discomfort in her chin. - Physical Exam General: Alert, Oriented x3, Cooperative, No apparent distress, Well developed, Well nourished HEENT: Atraumatic, PERRLA, EOMI, Normocephalic, - - Patient's chin wound was not examined, it was covered with surgical bandage Oral: Moist Mucosa Neck: Supple, No JVD, Trachea Midline, Thyroid Normal Size and Texture Lungs: Clear to auscultation, Normal air movement Cardiovascular: Regular rate, No murmurs Abdomen: Bowel Sounds Present, Soft, Non Tender, Non-Distended, No hernias noted Extremities: No edema, Capillary Refill Less than 3 Seconds Skin: No rashes, No breakdown Musculoskeletal: No Tenderness to Palpation of Joints or Extremities Neurological: Cranial nerves II-XII grossly intact, Sensory exam intact to light touch and pain, Coordination normal Psych/Mental Status: Normal Affect, Appropriate, Alert and oriented to time, place, person, mood and affect Vital Signs Temp Pulse Resp BP Pulse Ox 97.8 F 89 18 117/80 100 02/14/18 08:30 02/14/18 08:30 02/14/18 08:30 02/14/18 08:30 02/14/18 08:30 Oxygen Flow Rate (L/min) 2 Oxygen Delivery Method Room Air Weight: 94.892 kg Body Mass Index (BMI) 31.8 Finger Stick Blood Glucose 202 Intake and Output for Last 24 Hours 02/12/18 02/13/18 02/14/18 23:59 23:59 23:59 Intake Total 752 / 752 2643 / 2643 2804 / 2804 Output Total 1000 / 1000 1500 / 1500 Balance 752 / 752 1643 / 1643 1304 / 1304 Microbiology Past 72 Hours 02/13/18 10:40 Gram Stain - Final Submandibular Abscess Wound Culture - Preliminary Staphylococcus aureus Laboratory Tests Past 24 Hrs 02/14/18 02/14/18 06:10 06:10 WBC 5.0 RBC 4.21 Hgb 11.9 L Hct 36.2 L MCV 86.0 MCH 28.3 MCHC 32.9 RDW 13.0 RDW Differential 41.3 Plt Count 221 MPV 9.7 Immature Gran % (Auto) 0.200 Neut % (Auto) 54.4 Lymph % (Auto) 33.5 [place] % (Auto) 8.1 Eos % (Auto) 3.6 Baso % (Auto) 0.2 Absolute Neuts (auto) 2.7 Absolute Lymphs (auto) 1.69 Total Counted Not Reportable Sodium 139 Potassium 3.7 Chloride 104 Carbon Dioxide 31.0 Anion Gap 4 L BUN 6 L Creatinine 0.50 L Estim Creat Clear Calc 156.91 Est GFR (MDRD) Af Amer 178 Est GFR (MDRD) Non-Af 147 BUN/Creatinine Ratio 11.9 Glucose 161 H Calcium 8.4 L POC Glucose 02/14/18 02/14/18 02/14/18 16:41 11:24 08:38 POC Glucose 228 H 226 H 144 H 02/13/18 22:31 POC Glucose 240 H Medical Necessity - Tobacco Use Smoking Status: Never smoker Assessment/Plan All Active Problems Neck abscess (Acute) Facial cellulitis (Acute) Lumbar stenosis (Resolved) #1 submental anterior neck abscess and cellulitis-MRSA, await sensitivities, Dr. Angel Cabello is participating in patient care as well as infectious diseases-Dr. Parker #2 type 1 diabetes-continue present treatment #3 coronary artery disease-last catheterization in May of this year shows nonobstructive coronary disease #4 hypertension #5 hyperlipidemia Code Visit Inpatient E&M: 43168 Subs Hosp L2
[2018-02-14] MEDS: Ondansetron 4 MG/2 ML Vial IV (18:13)
[2018-02-14] MEDS: Morphine 4 MG/ML Syringe IV ×2 (18:19→21:49)
[2018-02-14 21:25] VITALS: BP 122/74; PULSE 86; RESP 18; TEMP 37; O2SAT 95
[2018-02-14] MEDS: Amitriptyline 25 MG Tablet 50 MG PO (21:46)
[2018-02-14] MEDS: Pregabalin 75 MG Capsule 225 MG PO (21:46)
[2018-02-14] MEDS: Atorvastatin Calcium 80 MG Tablet PO (21:46)
[2018-02-14 22:31] LABS: Bedside Glucose 184 mg/dL (70-110)
[2018-02-15] MEDS: Acetaminophen 325 MG Tablet 650 MG PO ×3 (02:48→20:57)
[2018-02-15] MEDS: oxyCODONE 5 MG Tablet PO ×4 (02:48→23:07)
[2018-02-15 03:13] VITALS: BP 124/85; PULSE 84; RESP 18; TEMP 36.6; O2SAT 97
[2018-02-15 06:15] LABS: Vancomycin, Trough Level 10.9 ug/mL (5.0-15.0)
[2018-02-15 06:50] LABS: Bedside Glucose 129 mg/dL (70-110)
--- NOTE | 2018-02-15 07:50 | PCM.RX.CS ---
Consult Pharmacy has been consulted to manage selected antiobiotic: Vancomycin Type of Consult: Follow-up Labs: Sodium 139 mmol/L (136-145) 02/14/18 06:10 Potassium 3.7 mmol/L (3.5-5.1) 02/14/18 06:10 Chloride 104 mmol/L (98-107) 02/14/18 06:10 Carbon Dioxide 31.0 mmol/L (21.0-32.0) 02/14/18 06:10 Anion Gap 4 (5-15) L 02/14/18 06:10 BUN 6 mg/dL (7-18) L 02/14/18 06:10 Creatinine 0.50 mg/dL (0.55-1.02) L 02/14/18 06:10 Est GFR (MDRD) Af Amer 178 mL/min (>60) 02/14/18 06:10 Est GFR (MDRD) Non-Af 147 mL/min (>60) 02/14/18 06:10 BUN/Creatinine Ratio 11.9 RATIO (10-20) 02/14/18 06:10 Glucose 161 mg/dL (74-106) H 02/14/18 06:10 Vancomycin Trough 10.9 ug/mL (5.0-15.0) 02/15/18 05:27 Microbiology: Microbiology 02/13/18 10:40 Submandibular Abscess Gram Stain - Final 02/13/18 10:40 Submandibular Abscess Wound Culture - Preliminary Staphylococcus aureus Goal Trough: 10-15 mcg/mL Pharmacy Plan for Drug Dosing: Trough in goal range. Recheck in 4 days. Pharmacy Service will continue to monitor and adjust dosing as required. Follow-Up Labs: Trough Vancomycin - 02/19/18 @ 0600
[2018-02-15 09:15] VITALS: BP 113/76; PULSE 80; RESP 16; TEMP 36.6; O2SAT 100
[2018-02-15] MEDS: Ranolazine 500 MG Tablet 1000 MG PO ×2 (09:26→21:26)
[2018-02-15] MEDS: Isosorbide Mononitrate 30 MG Tablet PO (09:27)
[2018-02-15] MEDS: Clopidogrel Bisulfate 75 MG Tablet PO (09:27)
[2018-02-15] MEDS: Aspirin 81 MG TAB.CHEW PO (09:27)
[2018-02-15] MEDS: Folic Acid 1 MG Tablet PO (09:27)
[2018-02-15] MEDS: Sertraline 100 MG Tablet PO (09:27)
[2018-02-15] MEDS: Insulin Lispro 100 UNIT/ML INSULN.PEN 10 UNIT SC ×3 (09:30→17:07)
[2018-02-15] MEDS: Magnesium Hydroxide 30 ML UDC PO (09:37)
--- NOTE | 2018-02-15 11:25 | CASEMGMT ---
Addendum entered by Sergio Rahman 02/15/18 15:57: Script for dressing supplies and wound nurse documentation also faxed to [facility] @ [phone]. Original Note: MARIA VICTORIA MARTINS NOTE: *Pt states 1st choice for HHC agency is [facility] [place], 2nd choice [facility]. Calls placed. *[facility] states they have no availability and unable to take pt. [facility] states they do not take B[employer] insurance. *Pt made aware and states she has no other preference, just as long as it is not [facility]. *Call placed to Kelli @ [facility]. Kelli stated they do take pt's with Bui insurance. Referral packet faxed to [facility], along with [facility] order. *Kelli called MARIA VICTOR[facility]ART[facility] and stated they are able to take pt for start of care tomorrow 02/16/18 for daily dressing changes. Kelli made aware dressings will need to be changed 2-3 times/day, but that pt is willing to learn and do 1-2 dressings a day on her own, but she would need teaching and to be seen daily. *Pt made aware [facility] able to take pt and start of care will be 02-16-18. Dudley FARR RN, CM.
--- NOTE | 2018-02-15 11:48 | NURSING ---
wound photo: anterior neck
[2018-02-15 12:21] LABS: Bedside Glucose 203 mg/dL (70-110)
[2018-02-15] MEDS: Insulin Lispro 100 UNIT/ML INSULN.PEN SC ×3 (12:50→21:28)
[2018-02-15 14:30] VITALS: BP 101/60; PULSE 84; RESP 14; TEMP 36.6; O2SAT 97
--- NOTE | 2018-02-15 14:38 | CASEMGMT ---
MARIA VICTORIA CM NOTE: Call placed to Kelli Addison @ [facility]. Notified anticipated d/c date is now tomorrow 02/16/18. Kelli states they are able to do start of care Sunday02/17/18 for dsg changes/wound care. Discharge instructions to be faxed to N @ [phone] when pt discharged. Green sheet on chart. Dudley FARR RN CM
[2018-02-15] MEDS: Magnesium Citrate 300 ML PO (14:39)
[2018-02-15] MEDS: Doxycycline 100 MG CAPSULE PO ×2 (14:39→21:26)
--- NOTE | 2018-02-15 15:49 | PCM.PN.ID ---
Patient Problems: Active and Suspected Problems Neck abscess (Acute) Subjective: Feeling better, pain improved, but noticed some increased swelling inferior to surg site. No fever. Packing in place. - Physical Exam General: Alert, Cooperative, No apparent distress Lungs: Clear to auscultation, Normal air movement Cardiovascular: Regular rate, Regular Rhythm Abdomen: Soft, Non Tender, Non-Distended Skin: Ulcer/ Wound - chin packing in place, less red, some induration today Vital Signs Temp Pulse Resp BP Pulse Ox 97.9 F 84 14 101/60 97 02/15/18 14:30 02/15/18 14:30 02/15/18 14:30 02/15/18 14:30 02/15/18 14:30 Oxygen Flow Rate (L/min) 2 Oxygen Delivery Method Room Air Weight: 94.892 kg Body Mass Index (BMI) 31.8 Finger Stick Blood Glucose 202 Intake and Output for Last 24 Hours 02/13/18 02/14/18 02/15/18 23:59 23:59 23:59 Intake Total 2643 / 2643 2804 / 2804 2335 / 2335 Output Total 1000 / 1000 1500 / 1500 Balance 1643 / 1643 1304 / 1304 2335 / 2335 Microbiology Past 72 Hours 02/13/18 10:40 Gram Stain - Final Submandibular Abscess Wound Culture - Final Meth. resistant Staph. aureus Anaerobic Culture - Preliminary No growth in 48 hours. Laboratory Tests Past 24 Hrs 02/15/18 05:27 Vancomycin Trough 10.9 POC Glucose 02/15/18 02/15/18 02/14/18 12:13 06:34 21:45 POC Glucose 203 H 129 H 184 H 02/14/18 16:41 POC Glucose 228 H Medical Necessity - Tobacco Use Smoking Status: Never smoker Route of nutrition/ use of supplements: [] Nutritional Intake: [] IV Site: [] Wilson Catheter: [] - Assessment/Plan Antibiotics: [] Assessment/Plan: [] Active and Suspected Problems Facial cellulitis (Acute) MRSA chin abscess - now s/p I&D 02/[address] Cabello. Has been on iv vanc. Has rash/n/v/feeling very ill with PCN, amox, and keflex. With her and her daughter having MRSA skin infections, recommend 5 day course of hibiclens wash qday with bid mupirocin to nares along with washing all sheets/towels in hot water. She says daughter is scheduled to see peds ID. Pain improved, redness improved. Some induration. Will change vanc to ivy de anda for planned 10 day course. Plan on d/c home tomorrow. I can see her in 2-3 weeks in follow-up Will follow, d/w primary team
--- NOTE | 2018-02-15 16:33 | PCM.PROGNOTE ---
Patient Problems: Active and Suspected Problems Neck abscess (Acute) Subjective: Patient was seen and examined today, I discussed her care with infectious diseases today, infectious diseases recommends the patient stay in the hospital and be reevaluated in the morning, they changed her antibiotic to oral Vibramycin. Home health has been set up for the patient for weekend. - Physical Exam General: Alert, Oriented x3, Cooperative, No apparent distress, Well developed, Well nourished HEENT: Atraumatic, PERRLA, EOMI, Normocephalic, - - Patient's wound area over the anterior neck and chin area is covered with surgical dressing at this time Oral: Moist Mucosa Neck: Supple, No Nuchal Rigidity, Trachea Midline, Thyroid Normal Size and Texture Lungs: Clear to auscultation, Normal air movement, No rhonchi, No wheeze, No rales Cardiovascular: Regular rate, Regular Rhythm, Normal S1, Normal S2, No murmurs, No Ectopic Activity, PMI Normal, No rub noted, No Gallop Abdomen: Bowel Sounds Present, Soft, Non Tender, Non-Distended, No hernias noted Extremities: No clubbing, No cyanosis, No edema, Capillary Refill Less than 3 Seconds Skin: No rashes, No breakdown Musculoskeletal: No Tenderness to Palpation of Joints or Extremities Neurological: Cranial nerves II-XII grossly intact, Neuro grossly intact, Sensory exam intact to light touch and pain, Coordination normal Psych/Mental Status: Normal Affect, Appropriate, Alert and oriented to time, place, person, mood and affect Vital Signs Temp Pulse Resp BP Pulse Ox 97.9 F 84 14 101/60 97 02/15/18 14:30 02/15/18 14:30 02/15/18 14:30 02/15/18 14:30 02/15/18 14:30 Oxygen Flow Rate (L/min) 2 Oxygen Delivery Method Room Air Weight: 94.892 kg Body Mass Index (BMI) 31.8 Finger Stick Blood Glucose 202 Intake and Output for Last 24 Hours 02/13/18 02/14/18 02/15/18 23:59 23:59 23:59 Intake Total 2643 / 2643 2804 / 2804 2335 / 2335 Output Total 1000 / 1000 1500 / 1500 Balance 1643 / 1643 1304 / 1304 2335 / 2335 Microbiology Past 72 Hours 02/13/18 10:40 Gram Stain - Final Submandibular Abscess Wound Culture - Final Meth. resistant Staph. aureus Anaerobic Culture - Preliminary No growth in 48 hours. Laboratory Tests Past 24 Hrs 02/15/18 05:27 Vancomycin Trough 10.9 POC Glucose 02/15/18 02/15/18 02/14/18 12:13 06:34 21:45 POC Glucose 203 H 129 H 184 H 02/14/18 16:41 POC Glucose 228 H Medical Necessity - Tobacco Use Smoking Status: Never smoker Assessment/Plan All Active Problems Neck abscess (Acute) Facial cellulitis (Acute) Lumbar stenosis (Resolved) #1 submental anterior neck abscess and cellulitis-MRSA, patient's antibiotic coverage was changed to Vibramycin oral today, if she is discharged tomorrow she will need a prescription for 9 days treatment with Vibramycin oral #2 type 1 diabetes-continue present treatment #3 coronary artery disease-last catheterization in May of this year shows nonobstructive coronary disease #4 hypertension #5 hyperlipidemia Code Visit Inpatient E&M: 96975 Subs Hosp L2
[2018-02-15 17:15] LABS: Bedside Glucose 201 mg/dL (70-110)
[2018-02-15 20:53] VITALS: BP 125/84; PULSE 81; RESP 16; TEMP 36.8; O2SAT 100
[2018-02-15] MEDS: Pregabalin 75 MG Capsule 225 MG PO (21:26)
[2018-02-15] MEDS: Atorvastatin Calcium 80 MG Tablet PO (21:26)
[2018-02-15] MEDS: Amitriptyline 25 MG Tablet 50 MG PO (21:26)
[2018-02-15 21:56] LABS: Bedside Glucose 236 mg/dL (70-110)
[2018-02-16] MEDS: Acetaminophen 325 MG Tablet 650 MG PO (03:22)
[2018-02-16] MEDS: oxyCODONE 5 MG Tablet PO (03:23)
[2018-02-16 03:24] VITALS: BP 108/73; PULSE 83; RESP 16; TEMP 36.4; O2SAT 100
--- NOTE | 2018-02-16 06:22 | PCM.PN.SRG ---
Patient Problems: Active and Suspected Problems Neck abscess (Acute) Subjective: Pt without complaint and notes much less anterior neck pain at wound debridement site - Physical Exam HEENT: - - decreased erythema to zero and decreased induration Vital Signs Temp Pulse Resp BP Pulse Ox 97.5 F L 83 16 108/73 100 02/16/18 03:24 02/16/18 03:24 02/16/18 03:24 02/16/18 03:24 02/16/18 03:24 Oxygen Flow Rate (L/min) 2 Oxygen Delivery Method Room Air Weight: 209 lb 3.217 oz Body Mass Index (BMI) 31.8 Finger Stick Blood Glucose 202 Intake and Output for Last 24 Hours 02/14/18 02/15/18 02/16/18 23:59 23:59 23:59 Intake Total 2804 / 2804 2785 / 2785 200 / 200 Output Total 1500 / 1500 1000 / 1000 Balance 1304 / 1304 2785 / 2785 -800 / -800 Microbiology Past 72 Hours 02/13/18 10:40 Gram Stain - Final Submandibular Abscess Wound Culture - Final Meth. resistant Staph. aureus Anaerobic Culture - Preliminary No growth in 48 hours. POC Glucose 02/15/18 02/15/18 02/15/18 21:24 17:05 12:13 POC Glucose 236 H 201 H 203 H 02/15/18 06:34 POC Glucose 129 H Medical Necessity - Tobacco Use Smoking Status: Never smoker Assessment/Plan All Active Problems Neck abscess (Acute) Facial cellulitis (Acute) Lumbar stenosis (Resolved) Notable progress in neck wound Much less induration--although not completely resolved, it certainly should allow for discharge today Office follow up in 10-14 days
[2018-02-16 07:01] LABS: Bedside Glucose 227 mg/dL (70-110)
[2018-02-16 08:00] VITALS: BP 112/78; PULSE 84; RESP 16; TEMP 36.4; O2SAT 97
[2018-02-16] MEDS: Insulin Lispro 100 UNIT/ML INSULN.PEN SC (08:14)
[2018-02-16] MEDS: Insulin Lispro 100 UNIT/ML INSULN.PEN 10 UNIT SC (08:14)
[2018-02-16] MEDS: Isosorbide Mononitrate 30 MG Tablet PO (08:14)
[2018-02-16] MEDS: Clopidogrel Bisulfate 75 MG Tablet PO (08:14)
[2018-02-16] MEDS: Ranolazine 500 MG Tablet 1000 MG PO (08:14)
[2018-02-16] MEDS: Sertraline 100 MG Tablet PO (08:14)
[2018-02-16] MEDS: Aspirin 81 MG TAB.CHEW PO (08:15)
[2018-02-16] MEDS: Doxycycline 100 MG CAPSULE PO (08:15)
[2018-02-16] MEDS: Folic Acid 1 MG Tablet PO (08:15)
--- NOTE | 2018-02-16 08:51 | PCM.DC ---
- Discharge Diagnoses Current Active Problems: Current Active and Chronic Problems Neck abscess (Acute) You will use the following diet at home:: Calorie/Carbohydrate Controlled (specify 1200, 1400, etc) - 2000 eligio ADA Your food should be the consistency of: Regular Your liquids should be the consistency of: Regular/Thin Discharge Activity: Return to Normal Activity Weight Bearing Status: Full weight bearing Additional Instructions: change chin dressing twice daily Allergies/Adverse Reactions: Allergies Iodinated Contrast- Oral and IV Dye [Iodinated Contrast Media - IV Dye] Allergy (Verified 11/22/17 18:24) Hives nitroglycerin [From Nitro-Bid] Allergy (Verified 11/22/17 18:24) DROPS HR LOW BP Penicillins Allergy (Verified 11/22/17 18:24) Rash Sulfa (Sulfonamide Antibiotics) Allergy (Verified 11/22/17 18:24) Hives Beta-Blockers (Beta-Adrenergic Bloc Adverse Reaction (Verified 11/22/17 18:24) Low blood pressure gabapentin [From Neurontin] Adverse Reaction (Verified 11/22/17 18:24) Upset Stomach metformin Adverse Reaction (Verified 11/22/17 18:24) Upset Stomach nitroglycerin IV Allergy (Uncoded 11/22/17 18:24) DROPS HR nitro drips per pt will drop bp quick and will bottom out Medications to take at Discharge Aspirin [Aspirin, Baby] 81 mg PO DAILY 03/04/15 Insulin Glargine [Lantus SoloStar Pen] 35 units SC BID 03/04/15 Insulin Aspart [Novolog Vial] 10 unit SQ TIDCM 11/24/15 Sertraline HCl [Zoloft] 100 mg PO DAILY 11/25/15 Nitroglycerin [Nitrostat] 0.4 mg SUBLINGUAL Q5M PRN #1 bottle 11/26/15 Insulin Aspart [Novolog Flexpen] See Protocol SC TIDCM 03/20/16 Folic Acid 1 mg PO DAILY@0800 04/26/17 ranolazine ER 1,000 mg tablet,extended release,12 hr 1,000 mg PO BID #60 tab 05/29/17 Amitriptyline HCl 50 mg PO QHS 08/10/17 atorvastatin 80 mg tablet 80 mg PO QHS #30 tab 08/13/17 clopidogrel 75 mg tablet 75 mg PO DAILY #90 tab 08/27/17 isosorbide mononitrate ER 30 mg tablet,extended release 24 hr 30 mg PO DAILY #90 tab 11/07/17 Pregabalin [Lyrica] 225 mg PO QHS 02/11/18 Acetaminophen [Tylenol Tablet] 650 mg PO Q6H PRN PRN tablet 02/16/18 Doxycycline 100 mg PO BID #17 cap 02/16/18 Hydrocodone Bitart/Apap 5-325 [[place] 5/325] 1 - 2 tab PO Q4H PRN PRN 7 Days #20 tab 02/16/18 The following prescriptions were given: Hydrocodone Bitart/Apap 5-325 [[place] 5/325] 1 - 2 tab PO Q4H PRN PRN 7 Days #20 tab PRN Reason: Pain Doxycycline 100 mg PO BID #17 cap Primary Care Physician: Alka Pringle [Primary Care Provider] - Please follow up with your Primary Care Physician in: in 2-3 weeks Test Results: Test results from this visit will be discussed in further detail at your follow-up appointment, if applicable. Please Follow Up With: Mario Cabello MD When: in 10-14 days Please Follow Up With: Mario Parker MD When: in 1-2 weeks at wound center-call for appointment
--- NOTE | 2018-02-16 08:55 | DCINST_ITS ---
- Discharge Diagnoses Current Active Problems: Current Active and Chronic Problems Neck abscess (Acute) You will use the following diet at home:: Calorie/Carbohydrate Controlled (specify 1200, 1400, etc) - 2000 eligio ADA Your food should be the consistency of: Regular Your liquids should be the consistency of: Regular/Thin Discharge Activity: Return to Normal Activity Weight Bearing Status: Full weight bearing Additional Instructions: change chin dressing twice daily Allergies/Adverse Reactions: Allergies Iodinated Contrast- Oral and IV Dye [Iodinated Contrast Media - IV Dye] Allergy (Verified 11/22/17 18:24) Hives nitroglycerin [From Nitro-Bid] Allergy (Verified 11/22/17 18:24) DROPS HR LOW BP Penicillins Allergy (Verified 11/22/17 18:24) Rash Sulfa (Sulfonamide Antibiotics) Allergy (Verified 11/22/17 18:24) Hives Beta-Blockers (Beta-Adrenergic Bloc Adverse Reaction (Verified 11/22/17 18:24) Low blood pressure gabapentin [From Neurontin] Adverse Reaction (Verified 11/22/17 18:24) Upset Stomach metformin Adverse Reaction (Verified 11/22/17 18:24) Upset Stomach nitroglycerin IV Allergy (Uncoded 11/22/17 18:24) DROPS HR nitro drips per pt will drop bp quick and will bottom out Medications to take at Discharge Aspirin [Aspirin, Baby] 81 mg PO DAILY 03/04/15 Insulin Glargine [Lantus SoloStar Pen] 35 units SC BID 03/04/15 Insulin Aspart [Novolog Vial] 10 unit SQ TIDCM 11/24/15 Sertraline HCl [Zoloft] 100 mg PO DAILY 11/25/15 Nitroglycerin [Nitrostat] 0.4 mg SUBLINGUAL Q5M PRN #1 bottle 11/26/15 Insulin Aspart [Novolog Flexpen] See Protocol SC TIDCM 03/20/16 Folic Acid 1 mg PO DAILY@0800 04/26/17 ranolazine ER 1,000 mg tablet,extended release,12 hr 1,000 mg PO BID #60 tab 05/29/17 Amitriptyline HCl 50 mg PO QHS 08/10/17 atorvastatin 80 mg tablet 80 mg PO QHS #30 tab 08/13/17 clopidogrel 75 mg tablet 75 mg PO DAILY #90 tab 08/27/17 isosorbide mononitrate ER 30 mg tablet,extended release 24 hr 30 mg PO DAILY #90 tab 11/07/17 Pregabalin [Lyrica] 225 mg PO QHS 02/11/18 Acetaminophen [Tylenol Tablet] 650 mg PO Q6H PRN PRN tablet 02/16/18 Doxycycline 100 mg PO BID #17 cap 02/16/18 Hydrocodone Bitart/Apap 5-325 [[place] 5/325] 1 - 2 tab PO Q4H PRN PRN 7 Days #20 tab 02/16/18 The following prescriptions were given: Hydrocodone Bitart/Apap 5-325 [[place] 5/325] 1 - 2 tab PO Q4H PRN PRN 7 Days #20 tab PRN Reason: Pain Doxycycline 100 mg PO BID #17 cap Primary Care Physician: Alka Pringle [Primary Care Provider] - Please follow up with your Primary Care Physician in: in 2-3 weeks Test Results: Test results from this visit will be discussed in further detail at your follow- up appointment, if applicable. Please Follow Up With: Mario Cabello MD When: in 10-14 days Please Follow Up With: Mario Parker MD When: in 1-2 weeks at wound center-call for appointment
--- NOTE | 2018-02-16 10:03 | NURSING ---
faxed discharge instructions to [facility]. pt was able to change dressing on own this morning and felt much more comfortable with dressing changes. her boyfriend, who initially as not able to help with dressing changes, is now also able to assist pt. she is thinking she will not need home health care. called [facility] to let them know, they stated they would call her when she got home to check with how she was doing.
--- NOTE | 2018-02-17 09:34 | PCM.DC.SUM ---
Discharge Date and Diagnosis Date of Admission: 02/11/18 Date of Discharge: 02/16/18 - Primary Discharge Diagnosis #1 submental anterior neck abscess and cellulitis-from MRSA #2 type 1 diabetes #3 coronary artery disease #4 hypertension #5 hyperlipidemia - Secondary Discharge Diagnosis Chronic Problems Syncope (Chronic) Obesity (BMI 30.0-34.9) (Chronic) Anxiety and depression (Chronic) Hyperlipidemia (Chronic) Type I diabetes mellitus (Chronic) Coronary artery disease (Chronic) Status post stents Hypertension (Chronic) Chronic pain (Chronic) Hospital Course and Treatment Operations: None, - - Anterior neck wound debridement Summary of Care Provided: The patient is a 37 year old F was seen in the emergency room at [facility] with complaint of facial abscess. She had been seen in the emergency room 48 hours prior and at that time she had incision and drainage of an abscess below her chin. Patient was given antibiotics at that time was discharged home on clindamycin. She returns to the emergency room with complaints of increasing pain in that area and a temp of 101 at home. Evaluation ER included labs which were normal except for glucose of 352, CAT scan of her neck without contrast showed subcutaneous edema but no abscess present. Patient was admitted to [place] [address], she was placed on IV antibiotics, she was seen in consultation by general surgery who performed a debridement of the chin area and anterior neck area, cultures obtained at the time resulted as MRSA positive. Patient was seen by infectious diseases, she improved during her hospital stay, on 02/16/18, patient was seen and examined and felt to be in stable condition for discharge home Physical exam: On examination she appeared in good health and spirits. Vital signs as documented. Skin warm and dry and without overt rashes. Neck without JVD. Lungs clear. Heart exam notable for regular rhythm, normal sounds and absence of murmurs, rubs or gallops. Abdomen unremarkable and without evidence of organomegaly, masses, or abdominal aortic enlargement. Extremities nonedematous. Skin: There is an open area under the patient's chin at the midline which is approximately 3 cm in length, I did not measure the depth of the wound. Neuro: Cranial nerves II through XII were intact, no focal motor deficits were noted, sensation to light touch and pinprick intact. Psych: Patient is alert and oriented x3, she does not appear anxious or depressed. - Physical Exam Vital Signs Temp Pulse Resp BP Pulse Ox 97.6 F L 84 16 112/78 97 02/16/18 08:00 02/16/18 08:00 02/16/18 08:00 02/16/18 08:00 02/16/18 08:00 Oxygen Flow Rate (L/min) 2 Oxygen Delivery Method Room Air Weight: 94.892 kg Body Mass Index (BMI) 31.8 Finger Stick Blood Glucose 202 Intake and Output for Last 24 Hours 02/15/18 02/16/18 02/17/18 23:59 23:59 23:59 Intake Total 2785 / 2785 300 / 300 Output Total 1800 / 1800 Balance 2785 / 2785 -1500 / -1500 Microbiology Past 72 Hours 02/13/18 10:40 Gram Stain - Final Submandibular Abscess Wound Culture - Final Meth. resistant Staph. aureus Anaerobic Culture - Preliminary No growth in 48 hours. Discharge Activity: Return to Normal Activity Weight Bearing Status: Full weight bearing Home Medications: Medications to take at Discharge Aspirin [Aspirin, Baby] 81 mg PO DAILY 03/04/15 Insulin Glargine [Lantus SoloStar Pen] 35 units SC BID 03/04/15 Insulin Aspart [Novolog Vial] 10 unit SQ TIDCM 11/24/15 Sertraline HCl [Zoloft] 100 mg PO DAILY 11/25/15 Nitroglycerin [Nitrostat] 0.4 mg SUBLINGUAL Q5M PRN #1 bottle 11/26/15 Insulin Aspart [Novolog Flexpen] See Protocol SC TIDCM 03/20/16 Folic Acid 1 mg PO DAILY@0800 04/26/17 ranolazine ER 1,000 mg tablet,extended release,12 hr 1,000 mg PO BID #60 tab 05/29/17 Amitriptyline HCl 50 mg PO QHS 08/10/17 atorvastatin 80 mg tablet 80 mg PO QHS #30 tab 08/13/17 clopidogrel 75 mg tablet 75 mg PO DAILY #90 tab 08/27/17 isosorbide mononitrate ER 30 mg tablet,extended release 24 hr 30 mg PO DAILY #90 tab 11/07/17 Pregabalin [Lyrica] 225 mg PO QHS 02/11/18 Acetaminophen [Tylenol Tablet] 650 mg PO Q6H PRN PRN tablet 02/16/18 Doxycycline 100 mg PO BID #17 cap 02/16/18 Hydrocodone Bitart/Apap 5-325 [[place] 5/325] 1 - 2 tab PO Q4H PRN PRN 7 Days #20 tab 02/16/18 Mupirocin Calcium [Bactroban] 15 gm NARES BID #1 cream..g. 02/16/18 Following Prescrptions Were Given to Patient: Hydrocodone Bitart/Apap 5-325 [[place] 5/325] 1 - 2 tab PO Q4H PRN PRN 7 Days #20 tab PRN Reason: Pain Doxycycline 100 mg PO BID #17 cap Mupirocin Calcium [Bactroban] 15 gm NARES BID #1 cream..g. Primary Care Physician: Alka Pringle [Primary Care Provider] - Please follow up with your Primary Care Physician in: in 2-3 weeks Please Follow Up With: Mario Cabello MD When: in 10-14 days Please Follow Up With: Mario Parker MD When: in 1-2 weeks at wound center-call for appointment Disposition: Home with Home Health Minutes spent on discharge:: 32 Patient Condition:: Stable Medical Necessity - Tobacco Use Smoking Status: Never smoker Meaningful Use Info Meaningful Use Diagnoses (Choose all that apply): None applicable Code Visit Inpatient E&M: 95216 Disch Hosp
--- NOTE | 2018-02-18 14:10 | CASEMGMT ---
RN CM DC PHONE CALL DC DATE: 02.16.18 DC DISPOSITION: Home with HHS LACE/STRATA: 10/08 Call to home, no answer, no message machine noted. Danielle MAYBERRYN RN ACM
== END 2018-02-16 10:14 | disposition home or self-care (01) | DRG 383 ==
LOC: ED 14:26 → MS2 15:44
PROVIDERS: Anesthesiology; Internal Medicine Infectious Disease; Surgery; Admitting Provider Hospitalist; Emergency Provider Emergency Medicine; Family Provider Family Medicine; PCP Family Medicine; Visit Provider Internal Medicine
PROC: 0JB10ZZ Excision of Face Subcutaneous Tissue and Fascia, Open Approach (ICD-10-PCS; principal; 2018-02-13 09:45)
DX: L02.01 Cutaneous abscess of face (principal); I25.10 Atherosclerotic heart disease of native coronary artery without angina pectoris; E78.5 Hyperlipidemia, unspecified; E10.65 Type 1 diabetes mellitus with hyperglycemia; B95.62 Methicillin resistant Staphylococcus aureus infection as the cause of diseases classified elsewhere; I10 Essential (primary) hypertension; E66.9 Obesity, unspecified; Z68.31 Body mass index [BMI] 31.0-31.9, adult; Z79.4 Long term (current) use of insulin; Z86.73 Personal history of transient ischemic attack (TIA), and cerebral infarction without residual deficits; Z95.5 Presence of coronary angioplasty implant and graft; F41.9 Anxiety disorder, unspecified; F32.9 Major depressive disorder, single episode, unspecified
CPT/HCPCS: 36415; 70490; 76882; 80048; 80076; 80202; 82962; 83036; 84484; 85025; 85610; 85730; 87070; 87075; 87077; 87186; 87205; 87640; 88304; 88305; 88312; 93005; 97802; 99282; J7030; J7040; J7120; A4216; J2405

== ENCOUNTER → 2018-02-22 14:48 | Outpatient (CLI) | payer MEDICAID, SELFPAY | PROVIDERS: Family Provider Family Medicine; PCP Family Medicine; Referring Provider Internal Medicine Infectious Disease; Visit Provider Internal Medicine Infectious Disease | DX: L02.01 Cutaneous abscess of face (principal); A49.02 Methicillin resistant Staphylococcus aureus infection, unspecified site | CPT/HCPCS: 87070; 87075; 87077; 87186; 87205 ==

== ENCOUNTER 2018-05-02 14:47 | Observation (INO) | payer MEDICAID, SELFPAY ==
[2018-05-02] VITALS (13 sets, daily range): BP systolic 119–146; BP diastolic 69–89; PULSE 86–113; RESP 17–23; TEMP 36.4–36.7; O2SAT 95–100; BMI 34.2; BMI 35.8
--- NOTE | 2018-05-02 15:07 | EKG12_ITS ---
Test Reason : CP Blood Pressure : / mmHG Vent. Rate : 104 BPM Atrial Rate : 104 BPM P-R Int : 162 ms QRS Dur : 104 ms QT Int : 388 ms P-R-T Axes : 032 -18 040 degrees QTc Int : 510 ms Sinus tachycardia Possible Left atrial enlargement Low voltage QRS (limb leads) Possible Anterolateral infarct , age undetermined Abnormal ECG Confirmed by CECILIA MITCHELL, YUNIOR ([id number]), metropolitan editor ELIZABETH RODRIGUEZ ([id number]) on 05/07/2018 10:49:08 AM Referred By: JACQUELIN Confirmed By:YUNIOR BROOKS MD
[2018-05-02] MEDS: Aspirin 81 MG TAB.CHEW 324 MG PO (15:23)
--- NOTE | 2018-05-02 15:34 | RAD_ITS ---
STUDY: X-RAY CHEST REASON FOR EXAM: Female, 38 years old. Chest tightness. TECHNIQUE: PA and lateral views of the chest. COMPARISON: Comparison is made with prior study dated June 21, 2017. FINDINGS: EKG electrodes are seen. The lungs are clear and expanded. Scattered calcified granulomas. There is no demonstrated pleural abnormality. Normal size heart. Normal mediastinum and charlene. Normal visualized pulmonary arteries. Normal visualized aortic arch and descending thoracic aorta. Normal visualized thoracic spine. Normal visualized ribs, clavicles, and shoulders. There is no demonstrated abnormality of the visualized soft tissue structures of the upper abdomen. RAD/Chest PA and Lateral IMPRESSION: Normal x-ray examination of the chest. Electronically Signed: Lupillo Mckeon MD at 15:54 EST Tel [phone], Service support ,
[2018-05-02 15:57] LABS: Absolute Lymphocyte Count 1.87 X10^3/ul (0.83-4.51); Absolute Neutrophil Count 3.9 X10^3/uL (2.0-7.7); Basophil# 0.02 X10^3/uL; Basophil% 0.3 % (0-1); Eosinophil# 0.14 X10^3/uL; Eosinophils% 2.2 % (0-5); Hematocrit 40.1 % (37-47); Hemoglobin 13.3 g/dl (12.0-15.0); Lymphocyte # 1.87 X10^3/ul (4.0); Mean Corp Hgb Conc 33.2 g/gl (32-36); Mean Corpuscular Hgb 28.2 pg (27.0-32.0); Mean Corpuscular Volume 85.1 fL (81-99); Monocyte# 0.48 X10^3/uL; Monocyte% 7.4 % (0-10); Neutrophil # 3.93 X10^3/uL (2.7-7.7); Neutrophil % 60.9 % (47-70); Platelet Count 236 K/mm3 (150-450); RBC Distribution Width CV 13.1 % (11.6-14.6); RBC Distribution Width SD 40.6 fl (35.1-43.9); Red Blood Count 4.71 M/mm3 (4.2-5.4); White Blood Count 6.5 K/mm3 (4.4-11.0)
[2018-05-02 16:01] LABS: POSITIVE COUNT NO; POSITIVE DIFFERENTIAL NO; POSITIVE MORPHOLOGY NO
--- NOTE | 2018-05-02 16:11 | ED.DCSUM_ITS ---
- ER Visit Summary Date of Service: 05/02/18 Chief Complaint: Chest pain History of Present Illness: The patient is a 38 F who presents with chest pain that has been intermittent for the past 2 weeks. He is not: Patient states that it feels like a tightness and heaviness. Patient states this is similar to her prior myocardial infarction. Patient had a cardiac catheterization last May. Patient states her pain improves briefly with nitroglycerin. Patient states her pain is worse with exertion. Patient states the pain is over the substernal area and radiates to her right shoulder blade. Patient admits to some nausea but denies any vomiting. Patient admits to some diaphoresis and shortness of breath with the pain. Patient also admits to some lightheadedness. Patient patient also admits to some palpitations. Physical Examination: Vital signs are stable. Patient is afebrile. Patient is in no acute distress. Bilateral oral mucosa is pink and moist. Neck is supple. Trachea is midline. No JVD noted. Heart was regular rate and rhythm. Lungs are clear and equal bilaterally. Abdomen is soft and nontender. Cranial nerves II through XII are intact. There are no focal motor or sensory deficits noted. Cranial nerves II through XII are intact. There are no focal motor or sensory deficits noted. Test Results: EKG showed sinus tachycardia with a rate of 104. There are nonspecific ST-T wave changes. This is unchanged compared to previous EKG dated 06/21/2017. PA and lateral chest x-ray were obtained. There is no acute cardiopulmonary process. CBC, basic metabolic profile, and troponin were obtained and were all within normal limits with the exception of an elevated glucose of 298. Emergency Department Course and Treatment: Patient was given aspirin and sublingual nitroglycerin here. Patient has a HEART score of 5. The case was discussed with Dr. Villagomez. She will admit the patient to her service. Patient understood and was agreeable with the plan. All questions were answered. Disposition: Admit for observation Impression: Chest pain This note was generated with [facility] dictation software. It may contain incorrect words, spelling, and punctuation that were not noted in review of the chart prior to signing ED Disposition - Plan for ED Patient: Chief Complaint: Chest Pain Referrals: Alka Pringle [Primary Care Provider] -
[2018-05-02 16:21] LABS: Anion Gap 9 (5-15); BUN 10 mg/dL (7-18); BUN/Creat Ratio 12.6 RATIO (10-20); Calcium,Total 9.6 mg/dL (8.5-10.1); Chloride 102 mmol/L (98-107); EST Glomerular Filtration Rate 86 mL/min (>60); Est Glom Filt Rate - Afr Amer 105 mL/min (>60); Estimated Creatinine Clearance 93.63 ml/min; Glucose 298 mg/dL (74-106); Potassium 3.7 mmol/L (3.5-5.1); Sodium Level 138 mmol/L (136-145)
--- NOTE | 2018-05-02 17:09 | PCM.HP.STD ---
Problem List (1) Chronic systolic (congestive) heart failure Status: Chronic (2) Ischemic cardiomyopathy Status: Chronic (3) Old anterior wall myocardial infarction Status: Chronic (4) History of coronary artery stent placement Status: Chronic Comment: [id number] and Mid LAD 01/2014, PCI-INOCENCIA-Mid RCA 02/2014 (5) Essential (primary) hypertension Status: Chronic (6) Hyperlipidemia Status: Chronic Qualifiers: History of Present Illness Date of Admission: 05/02/18 Chief Complaint: Chest pain. The patient is a 38 year old F who presents emergency room due to chest pain. She has a past medical history of type 1 diabetes mellitus, CAD status post PCI x2, hypertension, hyperlipidemia, obesity, chronic pain syndrome, history of pseudoseizure, MTHFR gene mutation, history of hidradenitis suppurativa, anxiety, depression. Patient states she has had intermittent chest pain for 2 weeks, worsening today. She describes a pressure/burning sensation in the center of her chest which radiates to her right shoulder. She notes this feels similar to prior presenting symptoms which required PCI. She notes associated dizziness, shortness of breath and generalized fatigue. Patient follows with Dr. Ma. Patient had cardiac catheterization in May [address] Luna which showed patent prior stents. She states she has not had further cardiac workup since that time. Patient also notes her blood sugars have been out of control with recent hospital admission for glucose greater than 500. She states her most recent hemoglobin A1c was 14%. She reports she is following with sample box maker to his attempting to get her an insulin pump. She also complains of associated neuropathy with numbness of her bilateral lower extremities below the knee. She recently had nerve conduction testing which she has not had a result of yet. Past Medical History Past Medical History (Chronic Problems): Chronic Problems (Last Updated 05/02/18 @ 08:54 by Yolanda Prakash) Chronic systolic (congestive) heart failure (Chronic) Ischemic cardiomyopathy (Chronic) Old anterior wall myocardial infarction (Chronic) History of coronary artery stent placement (Chronic 02/2014) [id number] and Mid LAD 01/2014, PCI-INOCENCIA-Mid RCA 02/2014 Essential (primary) hypertension (Chronic) Hyperlipidemia (Chronic) Medical History: Medical History (Last Updated 05/02/18 @ 08:54 by Yolanda Prakash) Chronic systolic (congestive) heart failure (Chronic) I50.22 Ischemic cardiomyopathy (Chronic) I25.5 Old anterior wall myocardial infarction (Chronic) I25.2 Essential (primary) hypertension (Chronic) I10 Hyperlipidemia (Chronic) E78.5 Facial cellulitis L03.211 Anxiety and depression F41.9, F32.9 Type 2 diabetes mellitus E11.9 Facial cellulitis (Inactive) L03.211 Neck abscess (Inactive) L02.11 Syncope (Inactive) R55 Allergies Iodinated Contrast- Oral and IV Dye [Iodinated Contrast Media - IV Dye] Allergy (Verified 05/02/18 14:53) Hives nitroglycerin [From Nitro-Bid] Allergy (Verified 05/02/18 14:53) DROPS HR LOW BP Penicillins Allergy (Verified 05/02/18 14:53) Rash Sulfa (Sulfonamide Antibiotics) Allergy (Verified 05/02/18 14:53) Hives Beta-Blockers (Beta-Adrenergic Bloc Adverse Reaction (Verified 05/02/18 14:53) Low blood pressure gabapentin [From Neurontin] Adverse Reaction (Verified 05/02/18 14:53) Upset Stomach metformin Adverse Reaction (Verified 05/02/18 14:53) Upset Stomach nitroglycerin IV Allergy (Uncoded 05/02/18 14:53) DROPS HR nitro drips per pt will drop bp quick and will bottom out Home Medications: Ambulatory Orders Medication Instructions Recorded Aspirin [Aspirin, Baby] 81 mg PO DAILY 03/04/15 Insulin Glargine [Lantus SoloStar 35 units SUBCUT BID 03/04/15 Pen] Sertraline HCl [Zoloft] 100 mg PO DAILY 11/25/15 Nitroglycerin [Nitrostat] 0.4 mg SUBLINGUAL Q5M PRN #1 bottle 11/26/15 ranolazine ER 1,000 mg 1,000 mg PO BID #60 tab 05/29/17 tablet,extended release,12 hr Amitriptyline HCl 50 mg PO QHS 08/10/17 atorvastatin 80 mg tablet 80 mg PO QHS #30 tab 08/13/17 clopidogrel 75 mg tablet 75 mg PO DAILY #90 tab 08/27/17 isosorbide mononitrate ER 30 mg 30 mg PO DAILY #90 tab 11/07/17 tablet,extended release 24 hr Pregabalin [Lyrica] 225 mg PO QHS 02/11/18 Insulin Lispro [Humalog KwikPen] 10 units SQ TIDCM 05/02/18 Insulin Lispro [Humalog KwikPen] See Protocol SQ TIDCM 05/02/18 Magnesium Oxide 400 mg PO BID 05/02/18 Prazosin HCl 5 mg PO QHS 05/02/18 Surgical History: Surgical History (Last Updated 05/02/18 @ 08:54 by Yolanda Prakash) History of coronary artery stent placement (Chronic) Onset Date: 02/2014 Z95.5 [id number] and Mid LAD 01/2014, PCI-INOCENCIA-Mid RCA 02/2014 History of left heart catheterization Onset Date: 12/15/16 Z98.890 History of lumbar fusion Z98.1 History of tubal ligation Z98.51 Surgical History: - - PCI x2, bilateral tubal ligation, back surgery with L4-L5 rods and screws in place, tonsillectomy. 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 Lives: Spouse/ Significant Other Smoking Status: Never smoker Alcohol: None Drugs: None - *Family History Paternal Family History: Family History (Last Reviewed 05/02/18 @ 17:13 by RAKESH Maldonado) Father Cancer Brother Diabetes Sister Diabetes Heart disease Hypertension High cholesterol Mother Heart disease High cholesterol Hypertension CVA (cerebral vascular accident) Grandmother Heart disease High cholesterol Hypertension Grandfather Heart disease High cholesterol Hypertension CVA (cerebral vascular accident) History Items: Heart Disease Maternal Family History: Family History (Last Reviewed 05/02/18 @ 17:13 by RAKESH Maldonado) Father Cancer Brother Diabetes Sister Diabetes Heart disease Hypertension High cholesterol Mother Heart disease High cholesterol Hypertension CVA (cerebral vascular accident) Grandmother Heart disease High cholesterol Hypertension Grandfather Heart disease High cholesterol Hypertension CVA (cerebral vascular accident) History Items: Stroke Review of Systems Constitutional: Reports: Fatigue. Denies: Chills, Fever, Weight Change HEENT: Denies: Head Aches, Sinus Congestion, Sinus Drainage Cardiovascular: Reports: Chest Pressure, Chest Tightness, Light Headedness, Palpitations. Denies: Chest Pain, Edema, Syncope Respiratory: Reports: Shortness of breath upon exertion. Denies: Cough, Shortness of breath at rest, Sputum production Gastrointestinal: Denies: Abdominal Pain, Nausea, Vomiting Genitourinary: Denies: Dysuria Musculoskeletal: Denies: Joint Pain, Joint Tenderness Skin: Denies: Rash, Wounds Neurological: Reports: - - Bilateral lower extremity neuropathy. Denies: Focal weakness, Numbness, Tingling Psychiatric: Reports: Anxiety, Depression Hematologic/ Lymphatic: Denies: Easy Bruising, Easy Bleeding VTE Information - Inpt Only VTE Present on Admission: No VTE Mechan Device Prophylaxis: None VTE Pharm Prophylaxis ordered?: Yes - Physical Exam General: Alert, Oriented x3, Cooperative HEENT: Atraumatic, PERRLA, EOMI, Normocephalic Neck: Supple, No JVD, Negative Carotid Bruits Lungs: Clear to auscultation, Normal air movement Cardiovascular: Regular rate, Regular Rhythm, Normal S1, Normal S2, No murmurs Abdomen: Bowel Sounds Present, Soft, Non Tender, Non-Distended, Obese Extremities: No clubbing, No cyanosis, No edema, Capillary Refill Less than 3 Seconds Skin: No rashes, No breakdown Musculoskeletal: No Tenderness to Palpation of Joints or Extremities Neurological: Cranial nerves II-XII grossly intact, Neuro grossly intact Psych/Mental Status: Normal Affect, Appropriate Vital Signs Temp Pulse Resp BP Pulse Ox 97.6 F L 104 H 22 H 138/83 H 96 05/02/18 14:49 05/02/18 16:30 05/02/18 16:30 05/02/18 16:30 05/02/18 16:30 Oxygen Flow Rate (L/min) 2 Oxygen Delivery Method Room Air Weight: 218 lb 7.649 oz Body Mass Index (BMI) 34.2 Finger Stick Blood Glucose 202 Laboratory Tests Past 24 Hrs 05/02/18 05/02/18 14:50 14:50 WBC 6.5 RBC 4.71 Hgb 13.3 Hct 40.1 MCV 85.1 MCH 28.2 MCHC 33.2 RDW 13.1 RDW Differential 40.6 Plt Count 236 MPV 10.0 Immature Gran % (Auto) 0.200 Neut % (Auto) 60.9 Lymph % (Auto) 29.0 Troup % (Auto) 7.4 Eos % (Auto) 2.2 Baso % (Auto) 0.3 Absolute Neuts (auto) 3.9 Absolute Lymphs (auto) 1.87 Total Counted Not Reportable Sodium 138 Potassium 3.7 Chloride 102 Carbon Dioxide 27.0 Anion Gap 9 BUN 10 Creatinine 0.80 Estim Creat Clear Calc 93.63 Est GFR (MDRD) Af Amer 105 Est GFR (MDRD) Non-Af 86 BUN/Creatinine Ratio 12.6 Glucose 298 H Calcium 9.6 Troponin I < 0.015 Assessment/Plan All Active Problems (Last Updated 05/02/18 @ 08:54 by Yolanda Prakash) Lumbar stenosis (Resolved) 1. Chest pain with history of CAD status post PCI x2-patient underwent cardiac catheterization May [address] Luna which showed patent prior stents. EF 45-50%. Patient was to continue medical management. Continue aspirin, statin, plavix, ranexa. Patient previously on carvedilol which was discontinued due to dizziness. Begin metoprolol 25 mg p.o. twice daily. Cardiology consult. Trend enzymes. Stress test in a.m. 2. Type 1 diabetes mellitus with peripheral neuropathy-reports she recently underwent nerve conduction studies. Has not received results of this. Reports most recent hemoglobin A1c was 14%. Repeat hemoglobin A1c. Encourage follow-up with endocrinology. Continue home Lantus regimen. Accu-Cheks ACHS with sliding scale insulin and scheduled Humalog. 3. Hypertension-stable, continue home isosorbide regimen. Initiated on metoprolol. 4. Hyperlipidemia-continue statin. 5. Chronic pain syndrome-continue amitriptyline, Lyrica. 6. History of pseudoseizure 7. MTHFR gene mutation-previously on vitamin B supplementation. No longer taking. 8. Depression/anxiety-continue Zoloft regimen. 9. History of hidradenitis suppurativa- prior I&D of abscesses. Hx of MRSA cx. 10. Obesity-encouraged diet and lifestyle modifications. DVT prophylaxis-Lovenox subcu. This patient was seen by RAKESH Maldonado under the supervision of Dr. Villagomez.
--- NOTE | 2018-05-02 18:02 | EKG12_ITS ---
Test Reason : ADMISSION Blood Pressure : / mmHG Vent. Rate : 097 BPM Atrial Rate : 097 BPM P-R Int : 180 ms QRS Dur : 104 ms QT Int : 390 ms P-R-T Axes : 045 -27 051 degrees QTc Int : 495 ms Normal sinus rhythm Anterolateral infarct , age undetermined Abnormal ECG When compared with ECG of 02-MAY-2018 14:50, MANUAL COMPARISON REQUIRED, DATA IS UNCONFIRMED Confirmed by CECILIA MITCHELL, YUNIOR ([id number]), television news video editor ELIZABETH RODRIGUEZ ([id number]) on 05/07/2018 1:27:45 PM Referred By: Confirmed By:YUNIOR BROOKS MD
[2018-05-02 18:26] LABS: Magnesium 1.8 mg/dL (1.6-2.6)
[2018-05-02] MEDS: Morphine 4 MG/ML Syringe IV (18:50)
[2018-05-02 19:00] LABS: Bedside Glucose 147 mg/dL (70-110)
[2018-05-02 19:11] LABS: Hemoglobin A1c 12.7 % (4.2-6.3)
[2018-05-02] MEDS: Amitriptyline 25 MG Tablet 50 MG PO (22:56)
[2018-05-02] MEDS: Magnesium Oxide 400 MG Tablet PO (22:57)
[2018-05-02] MEDS: Doxazosin 4 MG Tablet PO (22:57)
[2018-05-02] MEDS: Metoprolol Tartrate 25 MG Tablet PO (22:58)
[2018-05-02] MEDS: Atorvastatin Calcium 80 MG Tablet PO (22:58)
[2018-05-02] MEDS: Famotidine 20 MG Tablet PO (22:58)
[2018-05-02] MEDS: Ranolazine 500 MG Tablet 1000 MG PO (22:59)
[2018-05-02] MEDS: Pregabalin 75 MG Capsule 225 MG PO (23:05)
[2018-05-02] MEDS: Morphine 2 MG/ML Syringe IV (23:06)
[2018-05-02 23:26] LABS: Bedside Glucose 85 mg/dL (70-110)
[2018-05-03] VITALS (14 sets, daily range): BP systolic 101–121; BP diastolic 66–71; PULSE 78–91; RESP 16–18; TEMP 36.4–36.7; O2SAT 96–100
[2018-05-03 05:06] LABS: Bedside Glucose 192 mg/dL (70-110)
[2018-05-03 05:10] LABS: Hematocrit 36.4 % (37-47); Hemoglobin 12.3 g/dl (12.0-15.0); Mean Corp Hgb Conc 33.8 g/gl (32-36); Mean Corpuscular Hgb 29.1 pg (27.0-32.0); Mean Corpuscular Volume 86.1 fL (81-99); Mean Platelet Vol. 9.8 fl (6.2-12.0); Platelet Count 219 K/mm3 (150-450); RBC Distribution Width CV 13.2 % (11.6-14.6); RBC Distribution Width SD 40.7 fl (35.1-43.9); Red Blood Count 4.23 M/mm3 (4.2-5.4); White Blood Count 6.5 K/mm3 (4.4-11.0)
[2018-05-03 05:17] LABS: Scan Indicated on CBC? Y/N NO
[2018-05-03 05:19] LABS: Partial Thromboplast Time 25.9 Seconds (24.1-36.2); Prothrombin Time (Protime)PT. 13.3 SECONDS (11.7-14.9)
[2018-05-03 05:24] LABS: ALB/GLOB Ratio 1.1 RATIO (0.9-2.4); AST(SGOT) 19 U/L (15-37); Alanine Aminotransfer ALT/SGPT 33 U/L (13-56); Albumin, Serum 3.2 g/dL (3.2-5.0); Alkaline Phosphatase 58 U/L (45-117); Anion Gap 10 (5-15); BUN 12 mg/dL (7-18); BUN/Creat Ratio 17.5 RATIO (10-20); Calcium,Total 8.6 mg/dL (8.5-10.1); Chloride 104 mmol/L (98-107); Cholesterol 128 mg/dL (200); Creatinine, Serum 0.69 mg/dL (0.55-1.02); EST Glomerular Filtration Rate 102 mL/min (>60); Est Glom Filt Rate - Afr Amer 124 mL/min (>60); Estimated Creatinine Clearance 108.56 ml/min; Globulin 2.9 g/dL (2.2-4.2); Glucose 198 mg/dL (74-106); High Density Lipoprotein 46 mg/dL; Potassium 3.8 mmol/L (3.5-5.1); Protein, Total 6.1 g/dL (6.4-8.2); Sodium Level 140 mmol/L (136-145); Triglycerides 135 mg/dL; Very Low Density Lipoprotein 27 mg/dL (5-40)
--- NOTE | 2018-05-03 05:55 | EKG12_ITS ---
Test Reason : Blood Pressure : / mmHG Vent. Rate : 084 BPM Atrial Rate : 084 BPM P-R Int : 180 ms QRS Dur : 104 ms QT Int : 414 ms P-R-T Axes : 051 -24 051 degrees QTc Int : 489 ms Normal sinus rhythm Low voltage QRS (limb leads) Anterolateral infarct , age undetermined Abnormal ECG Confirmed by CECILIA MITCHELL, YUNIOR ([id number]), web content editor ELIZABETH RODRIGUEZ ([id number]) on 05/09/2018 10:58:42 AM Referred By: BECKY Confirmed By:YUNIOR BROOKS MD
[2018-05-03] MEDS: Aspirin 81 MG TAB.CHEW PO (06:09)
[2018-05-03] MEDS: Clopidogrel Bisulfate 75 MG Tablet PO (06:09)
[2018-05-03] MEDS: Ranolazine 500 MG Tablet 1000 MG PO (06:09)
[2018-05-03 06:50] LABS: Bedside Glucose 195 mg/dL (70-110)
[2018-05-03] MEDS: Famotidine 20 MG Tablet PO (09:08)
[2018-05-03] MEDS: Magnesium Oxide 400 MG Tablet PO (09:08)
[2018-05-03] MEDS: Metoprolol Tartrate 25 MG Tablet PO (09:08)
[2018-05-03] MEDS: Sertraline 100 MG Tablet PO (09:08)
[2018-05-03] MEDS: Isosorbide Mononitrate 30 MG Tablet PO (09:08)
--- NOTE | 2018-05-03 09:36 | STRESSREP ---
Stress Test Report Date: 05/03/2018 Procedure: Pharmacologic stress nuclear imaging study Indications: Chest pain; CAD; PCI; cardiomyopathy; CHF Consent: Per the patient Procedure: The patient underwent pharmacologic (Regadenoson) evaluation with a peak heart rate of 96 beats per minute (52 predicted maximal heart rate) and a peak blood pressure of 122/94 mmHg. The baseline ECG demonstrated normal sinus rhythm; poor R wave progression. The peak pharmacologic ECG demonstrated no obvious ECG changes. There were no cardiac dysrhythmias pretest, during pharmacologic infusion, or recoveryp0. There was no complaint of chest discomfort during pharmacologic infusion or recovery. The examination was discontinued secondary to completion of protocol. Impression: 1. Pharmacologic (Regadenoson) evaluation 2. Peak pharmacologic ECG with no obvious ECG changes. 3. There were no cardiac dysrhythmias pretest, during pharmacologic infusion, or recovery. 4. Nuclear images pending Myocardial perfusion imaging study: Technique: The patient was injected with 14.7 millicuries of technetium 99m Cardiolite and subsequently rest SPECT Cardiolite nuclear imaging was obtained in the horizontal long, vertical long, and short axis views. The patient underwent pharmacologic (Regadenoson) evaluation with a peak heart rate of 96 beats per minute (52 % percent predicted maximal heart rate) and a peak blood pressure of 122/94 mmHg. The patient was injected with 44.6 millicuries of technetium 99m Cardiolite and subsequently stress SPECT Cardiolite nuclear imaging was obtained in the horizontal long, vertical long, and short axis views. A gated Cardiolite study at peak stress was obtained. Interpretation: Rest and stress SPECT Cardiolite nuclear imaging status post realignment, normalization, and attenuation correction demonstrate the appearance of diminished absence of myocardial perfusion/tracer uptake in portions of the mid to distal anterior, anteroseptal, anteroapical, and septal apical segments without significant change between rest and stress.. There is diminished end-systolic thickening and brightening in the aforementioned areas. The gated Cardiolite study demonstrates diminished myocardial thickening and end were wall motion in the aforementioned areas. The reported LVEF is 54 %. Impression: 1. Rest and stress SPECT Cardiolite nuclear imaging demonstrate myocardial perfusion changes appearing compatible with an area of previous myocardial injury/infarction involving portions of the anterior, anteroseptal, and apical segments with no myocardial perfusion changes considered diagnostic for associated stress-induced myocardial ischemia. 2. The gated Cardiolite study reports an LVEF of 54 %. This note was generated with [email or web address] software. It may contain incorrect words, spelling, and punctuation that were not noted in checking the note before signing.
--- NOTE | 2018-05-03 09:42 | STRESSREP_ITS ---
Stress Test Report Date: 05/03/2018 Procedure: Pharmacologic stress nuclear imaging study Indications: Chest pain; CAD; PCI; cardiomyopathy; CHF Consent: Per the patient Procedure: The patient underwent pharmacologic (Regadenoson) evaluation with a peak heart rate of 96 beats per minute (52 predicted maximal heart rate) and a peak blood pressure of 122/94 mmHg. The baseline ECG demonstrated normal sinus rhythm; poor R wave progression. The peak pharmacologic ECG demonstrated no obvious ECG changes. There were no cardiac dysrhythmias pretest, during pharmacologic infusion, or recoveryp0. There was no complaint of chest discomfort during pharmacologic infusion or recovery. The examination was discontinued secondary to completion of protocol. Impression: 1. Pharmacologic (Regadenoson) evaluation 2. Peak pharmacologic ECG with no obvious ECG changes. 3. There were no cardiac dysrhythmias pretest, during pharmacologic infusion, or recovery. 4. Nuclear images pending Myocardial perfusion imaging study: Technique: The patient was injected with 14.7 millicuries of technetium 99m Cardiolite and subsequently rest SPECT Cardiolite nuclear imaging was obtained in the horizontal long, vertical long, and short axis views. The patient underwent pharmacologic (Regadenoson) evaluation with a peak heart rate of 96 beats per minute (52 % percent predicted maximal heart rate) and a peak blood pressure of 122/94 mmHg. The patient was injected with 44.6 millicuries of technetium 99m Cardiolite and subsequently stress SPECT Cardiolite nuclear imaging was obtained in the horizontal long, vertical long, and short axis views. A gated Cardiolite study at peak stress was obtained. Interpretation: Rest and stress SPECT Cardiolite nuclear imaging status post realignment, normalization, and attenuation correction demonstrate the appearance of diminished absence of myocardial perfusion/tracer uptake in portions of the mid to distal anterior, anteroseptal, anteroapical, and septal apical segments without significant change between rest and stress.. There is diminished end- systolic thickening and brightening in the aforementioned areas. The gated Cardiolite study demonstrates diminished myocardial thickening and end were wall motion in the aforementioned areas. The reported LVEF is 54 %. Impression: 1. Rest and stress SPECT Cardiolite nuclear imaging demonstrate myocardial perfusion changes appearing compatible with an area of previous myocardial injury/infarction involving portions of the anterior, anteroseptal, and apical segments with no myocardial perfusion changes considered diagnostic for associated stress-induced myocardial ischemia. 2. The gated Cardiolite study reports an LVEF of 54 %. This note was generated with [employer] software. It may contain incorrect words, spelling, and punctuation that were not noted in checking the note before signing.
--- NOTE | 2018-05-03 10:23 | EKG12_ITS ---
Test Reason : MORNING EKG Blood Pressure : / mmHG Vent. Rate : 076 BPM Atrial Rate : 076 BPM P-R Int : 188 ms QRS Dur : 108 ms QT Int : 428 ms P-R-T Axes : 050 -01 054 degrees QTc Int : 481 ms Normal sinus rhythm Low voltage QRS Possible Anterolateral infarct , age undetermined Abnormal ECG Confirmed by CECILIA MITCHELL, YUNIOR ([id number]), editor at large ELIZABETH RODRIGUEZ ([id number]) on 05/09/2018 11:00:06 AM Referred By: BECKY Confirmed By:YUNIOR BROOKS MD
[2018-05-03] MEDS: Morphine 2 MG/ML Syringe IV (10:48)
[2018-05-03] MEDS: 0.9% NaCl Peripheral Flush Adult/Peds IV (10:49)
--- NOTE | 2018-05-03 11:13 | US_ITS ---
STUDY: ABDOMINAL ULTRASOUND - RIGHT UPPER QUADRANT REASON FOR VISIT: Female, 38 years old. Chest pain. TECHNIQUE: Ultrasound evaluation of the right upper quadrant was performed with real-time and static richardson-scale imaging. TECHNICAL QUALITY: Limited. Examination limited by bowel gas. COMPARISON: None. FINDINGS: Liver: The liver measures 15.8 cm. There is increased echogenicity consistent with fatty infiltration. The bile ducts are within normal limits. There is hepatic color flow. The direction of portal flow is hepatopetal. There is no demonstrated mass lesion. Gallbladder: Normal distended gallbladder. The gallbladder wall measures 2.0 mm. There is a negative sonographic Aguilar's sign. There is no pericholecystic fluid. There are no gallstones. I suspect a small amount of sludge within the gallbladder lumen. Common Bile Duct (C.B.D.): The common bile duct measures 4.8 mm. Pancreas: There is nonvisualization of the pancreas due to overlying bowel gas. Right Kidney: Normal size of the right kidney. The right kidney measures 12.4 cm x 6.9 cm x 5.5 cm. Normal renal cortex. The right cortex measures 1.9 cm. There is no demonstrated renal mass or cyst. There is no right hydronephrosis. US/Gallbladder IMPRESSION: Fatty infiltration of the liver. Findings suggestive of a small amount of sludge in the gallbladder lumen. Electronically Signed: Lupillo Mckeon MD at 14:07 EST Tel [phone], Service support ,
--- NOTE | 2018-05-03 11:14 | PCM.CONS.C ---
Problem List (1) Chronic systolic (congestive) heart failure Status: Chronic (2) Ischemic cardiomyopathy Status: Chronic (3) Old anterior wall myocardial infarction Status: Chronic (4) History of coronary artery stent placement Status: Chronic Comment: [id number] and Mid LAD 01/2014, PCI-INOCENCIA-Mid RCA 02/2014 (5) Essential (primary) hypertension Status: Chronic (6) Hyperlipidemia Status: Chronic Qualifiers: Reason for Consult Date of Consultation: 05/03/18 Reason for Consultation: Chest pain, coronary disease, previous stents, History of Present Illness: The patient is a 38 year old F, with type 2 diabetes diagnosed at age 19, hypertension, hypercholesterolemia, coronary artery disease status post acute anterior wall myocardial infarction in 2013 at which time she underwent emergent angioplasty and stenting to her LAD at [facility] in [place]. She returned 2 weeks later with recurrent chest pain and underwent elective angioplasty and stenting of her mid RCA. Patient has had multiple catheterizations since that time including one by myself here [facility] on 06/12/17 for recurrent chest pain symptoms. At that time she had widely patent LAD and RCA stents, and mild to moderate mid anterior apical hypokinesis. She did have very small vessel disease with ostial diagonal narrowing however these were too small for balloons let alone stents. No additional PCI was performed. Patient chest pain improved after her catheterization in May 2017 however has been present on and off ever since that time and appears to be manageable. However, about 3 weeks ago the patient developed recurrent midsternal chest pressure, with associated nausea and vomiting and pain radiating to her right shoulder blade consistent with previous anginal symptoms of her myocardial infarction in 2013. Her symptoms appear to occur at rest only, and she had noted her heart rate to be increased in the 100s. Patient definitely notices her chest pain when her heart rate goes above 115. Heart rate control is been problematic with beta blockers due to associated hypotension and lightheadedness. Patient was on no Lopressor at that time. The patient has been medically compliant is a non-smoker, and has been diagnosed with sleep apnea. She has had several chest pain episodes as well as waking herself up with her own snoring and shortness of breath consistent with obstructive sleep apnea symptoms. Unfortunately due to insurance reasons she is yet to be able to obtain a CPAP machine. Patient does not drink caffeine per se, and denies smoking, alcohol, or relationship of her pain symptoms to eating. She did have a HIDA scan in the past and has known sludge in her gallbladder. The patient underwent a non-walking nuclear stress test today which demonstrated previous old anterior, anteroseptal and apical myocardial infarction, no areas of ischemia, and an EF around 54%. The patient is unable to walk on a treadmill due to heart rate induced lightheadedness and dizziness. On admission and since her admission her EKGs have showed normal sinus rhythm with old anteroseptal and lateral wall myocardial infarction, no acute changes. Her troponins have been negative. [] Past Medical History Allergies/Adverse Reactions: Allergies Iodinated Contrast- Oral and IV Dye [Iodinated Contrast Media - IV Dye] Allergy (Verified 05/02/18 14:53) Hives nitroglycerin [From Nitro-Bid] Allergy (Verified 05/02/18 14:53) DROPS HR LOW BP Penicillins Allergy (Verified 05/02/18 14:53) Rash Sulfa (Sulfonamide Antibiotics) Allergy (Verified 05/02/18 14:53) Hives Beta-Blockers (Beta-Adrenergic Bloc Adverse Reaction (Verified 05/02/18 14:53) Low blood pressure gabapentin [From Neurontin] Adverse Reaction (Verified 05/02/18 14:53) Upset Stomach metformin Adverse Reaction (Verified 05/02/18 14:53) Upset Stomach nitroglycerin IV Allergy (Uncoded 05/02/18 14:53) DROPS HR nitro drips per pt will drop bp quick and will bottom out Home Medications: Ambulatory Orders Medication Instructions Recorded Aspirin [Aspirin, Baby] 81 mg PO DAILY 03/04/15 Insulin Glargine [Lantus SoloStar 35 units SUBCUT BID 03/04/15 Pen] Sertraline HCl [Zoloft] 100 mg PO DAILY 11/25/15 Nitroglycerin [Nitrostat] 0.4 mg SUBLINGUAL Q5M PRN #1 bottle 11/26/15 ranolazine ER 1,000 mg 1,000 mg PO BID #60 tab 05/29/17 tablet,extended release,12 hr Amitriptyline HCl 50 mg PO QHS 08/10/17 atorvastatin 80 mg tablet 80 mg PO QHS #30 tab 08/13/17 clopidogrel 75 mg tablet 75 mg PO DAILY #90 tab 08/27/17 isosorbide mononitrate ER 30 mg 30 mg PO DAILY #90 tab 11/07/17 tablet,extended release 24 hr Pregabalin [Lyrica] 225 mg PO QHS 02/11/18 Insulin Lispro [Humalog KwikPen] 10 units SQ TIDCM 05/02/18 Insulin Lispro [Humalog KwikPen] See Protocol SQ TIDCM 05/02/18 Magnesium Oxide 400 mg PO BID 05/02/18 Prazosin HCl 5 mg PO QHS 05/02/18 Past Medical History (Chronic Problems): Chronic Problems (Last Updated 05/02/18 @ 08:54 by Yolanda Prakash) Chronic systolic (congestive) heart failure (Chronic) Ischemic cardiomyopathy (Chronic) Old anterior wall myocardial infarction (Chronic) History of coronary artery stent placement (Chronic 02/2014) [id number] and Mid LAD 01/2014, PCI-INOCENCIA-Mid RCA 02/2014 Essential (primary) hypertension (Chronic) Hyperlipidemia (Chronic) Surgical History: - - PCI x2, bilateral tubal ligation, back surgery with L4-L5 rods and screws in place, tonsillectomy. 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 - *Family History Paternal Family History: Family History (Last Reviewed 05/02/18 @ 17:13 by RAKESH Maldonado) Father Cancer Brother Diabetes Sister Diabetes Heart disease Hypertension High cholesterol Mother Heart disease High cholesterol Hypertension CVA (cerebral vascular accident) Grandmother Heart disease High cholesterol Hypertension Grandfather Heart disease High cholesterol Hypertension CVA (cerebral vascular accident) History Items: Heart Disease Maternal Family History: Family History (Last Reviewed 05/02/18 @ 17:13 by RAKESH Maldonado) Father Cancer Brother Diabetes Sister Diabetes Heart disease Hypertension High cholesterol Mother Heart disease High cholesterol Hypertension CVA (cerebral vascular accident) Grandmother Heart disease High cholesterol Hypertension Grandfather Heart disease High cholesterol Hypertension CVA (cerebral vascular accident) History Items: Stroke Lives: Spouse/ Significant Other Smoking Status: Never smoker Tobacco Use: Non-smoker Alcohol: None Drugs: None Review of Systems - Review of Systems General: Denies: Fever, Night Sweats, Fatigue Cardiovascular: Reports: Chest Discomfort, Chest Discomfort at Rest, Chest Pressure, Chest Tightness. Denies: Shortness of Breath, Orthopnea, PND, Peripheral Edema, Palpitations, Lightheadedness, Dizziness, Near Syncope, Syncope Respiratory: Denies: Cough, Sputum Production, Hemoptysis Gastrointestinal: Reports: Nausea, Emesis. Denies: Hematemesis, Hematochezia, Melena Genitourinary: Denies: Dysuria, Hematuria Skin: Denies: Rash Subjectve: Patient laying in bed, no acute distress. Objective: Vital Signs Temp Pulse Resp BP Pulse Ox 98.1 F 82 18 119/66 98 05/03/18 10:15 05/03/18 10:40 05/03/18 10:40 05/03/18 10:40 05/03/18 10:40 Oxygen Flow Rate (L/min) 97 Oxygen Delivery Method Room Air Weight: 228 lb 13.437 oz Body Mass Index (BMI) 35.8 Finger Stick Blood Glucose 202 Intake and Output for Last 24 Hours 05/01/18 05/02/18 05/03/18 23:59 23:59 23:59 Intake Total 1779 / 1779 Balance 1779 / 1779 General: Awake, Alert, Oriented x 3 HEENT: PERRL, EOMI, Sclera Non Icteric Neck: Supple, Good ROM, No Lymph Node Enlargement Lungs: Clear to auscultation Cardiovascular: Regular Rhythm, Normal S1, Normal S2, No Murmurs, No Rubs, No Gallops Vascular: No Carotid Bruits, Normal Femoral Pulses, Normal Radial Pulses, Normal Dorsalis Pedal Pulse, Normal Posterior Tibial Pulses Abdomen: Bowel Sounds Present, Soft, Non Tender, No HSM, No Organomegaly Extremities: No Cyanosis, No Clubbing, No edema Neurological: No Focal Motor or Sensory Deficit 05/02/18 14:50: WBC 6.5, RBC 4.71, Hgb 13.3, Hct 40.1, MCV 85.1, MCH 28.2, MCHC 33.2, RDW 13.1, RDW Differential 40.6, Plt Count 236, MPV 10.0, Immature Gran % (Auto) 0.200, Neut % (Auto) 60.9, Lymph % (Auto) 29.0, [place] % (Auto) 7.4, Eos % (Auto) 2.2, Baso % (Auto) 0.3, Absolute Neuts (auto) 3.9, Total Counted Not Reportable 05/02/18 14:50: Sodium 138, Potassium 3.7, Chloride 102, Carbon Dioxide 27.0, Anion Gap 9, BUN 10, Creatinine 0.80, Est GFR (MDRD) Af Amer 105, Est GFR (MDRD) Non-Af 86, BUN/Creatinine Ratio 12.6, Glucose 298 H, Calcium 9.6, Troponin I < 0.015 05/02/18 14:50: Magnesium 1.8 05/02/18 14:50: Hemoglobin A1c 12.7 H 05/02/18 18:24: Troponin I < 0.015 05/03/18 04:55: WBC 6.5, RBC 4.23, Hgb 12.3, Hct 36.4 L, MCV 86.1, MCH 29.1, MCHC 33.8, RDW 13.2, RDW Differential 40.7, Plt Count 219, MPV 9.8 05/03/18 04:55: Sodium 140, Potassium 3.8, Chloride 104, Carbon Dioxide 26.0, Anion Gap 10, BUN 12, Creatinine 0.69, Est GFR (MDRD) Af Amer 124, Est GFR (MDRD) Non-Af 102, BUN/Creatinine Ratio 17.5, Glucose 198 H, Calcium 8.6, Total Bilirubin 0.40, Triglycerides 135, Cholesterol 128, LDL Cholesterol 55, VLDL Cholesterol 27, HDL Cholesterol 46 05/03/18 04:55: Troponin I < 0.015 05/03/18 04:55: PT 13.3, INR 1.0, APTT 25.9 Rhythm: EKG: ECHO: Stress Test: Cardiac Cath: PCI: CT Surgery: Holter monitor: EPS: PPM: CXR: Chest CT Scan: Assessment/Plan 1. Coronary artery disease: The patient has known coronary artery disease status post anterior wall myocardial infarction with emergent angioplasty and stenting to her LAD at [facility] in 2013 followed 2 weeks later with elective angioplasty and stenting of her mid RCA for recurrent chest pain symptoms. Patient has had recurrent chest pain symptoms since 2013 on and off requiring multiple catheterizations the most recent of which was in May 2017. At that time this was performed at [facility] by myself, which showed widely patent LAD and RCA stents and minimal nonobstructive coronary disease which was not amenable to PCI. Patient now has recurrent atypical nonexertional substernal chest pressure, possibly consistent with gallbladder contraction/inflammation, superimposed upon microvessel disease and gastroparesis due to her diabetes. Her stress test is negative for inducible ischemia and only shows old anterior wall myocardial infarction. I do not believe the patient requires a repeat catheterization at this time. I do agree with adding beta-zita but would reduce it to 12.5 mg of Lopressor twice daily given her history of hypertension in the past. Would recommend continuing aspirin, Plavix, Ranexa, and other antihypertensive medications as outlined in her MRF. I would not recommend repeat catheterization at this time. I would recommend that the patient undergo an ultrasound of her gallbladder to determine if she has gallbladder stones which may be contributing to her symptomatic presentation. Patient may also require a HIDA scan to determine if she has gallbladder induced chest pain. Should the patient require gallbladder surgery, she is at moderate risk for noncardiac surgery, but would require cessation of her Plavix for at least 5 days time. She would require continuation of baby aspirin. 2. Obstructive sleep apnea: The patient has been diagnosed with obstructive sleep apnea but due to insurance issues has not been able to acquire her CPAP machine. I believe a number of her symptoms may be mitigated by her CPAP, would would recommend pulmonary consultation to assist with insurance coverage of her CPAP. 3. Hyperlipidemia: Continue statin based medications. Continue Lipitor. Her LDL and HDL are at goal. 4. Thank you very much for the opportunity to participate in the cardiac care of your patient. Consultation time took place between 1050 and 11:23 AM. Patient may follow-up with Dr. Luna going forward. Code Visit Inpatient E&M: 53628 Init Hosp L2
--- NOTE | 2018-05-03 11:56 | DCINST_ITS ---
You will use the following diet at home:: Calorie/Carbohydrate Controlled (specify 1200, 1400, etc), Cardiac Discharge Activity: Return to Normal Activity Call your doctor if you observe: Shortness of breath, Dizziness, Fainting spells, Chest pain Allergies/Adverse Reactions: Allergies Iodinated Contrast- Oral and IV Dye [Iodinated Contrast Media - IV Dye] Allergy (Verified 05/02/18 14:53) Hives nitroglycerin [From Nitro-Bid] Allergy (Verified 05/02/18 14:53) DROPS HR LOW BP Penicillins Allergy (Verified 05/02/18 14:53) Rash Sulfa (Sulfonamide Antibiotics) Allergy (Verified 05/02/18 14:53) Hives Beta-Blockers (Beta-Adrenergic Bloc Adverse Reaction (Verified 05/02/18 14:53) Low blood pressure gabapentin [From Neurontin] Adverse Reaction (Verified 05/02/18 14:53) Upset Stomach metformin Adverse Reaction (Verified 05/02/18 14:53) Upset Stomach nitroglycerin IV Allergy (Uncoded 05/02/18 14:53) DROPS HR nitro drips per pt will drop bp quick and will bottom out Medications to take at Discharge Aspirin [Aspirin, Baby] 81 mg PO DAILY 03/04/15 Insulin Glargine [Lantus SoloStar Pen] 35 units SUBCUT BID 03/04/15 Sertraline HCl [Zoloft] 100 mg PO DAILY 11/25/15 Nitroglycerin [Nitrostat] 0.4 mg SUBLINGUAL Q5M PRN #1 bottle 11/26/15 ranolazine ER 1,000 mg tablet,extended release,12 hr 1,000 mg PO BID #60 tab 05/29/17 Amitriptyline HCl 50 mg PO QHS 08/10/17 atorvastatin 80 mg tablet 80 mg PO QHS #30 tab 08/13/17 clopidogrel 75 mg tablet 75 mg PO DAILY #90 tab 08/27/17 isosorbide mononitrate ER 30 mg tablet,extended release 24 hr 30 mg PO DAILY #90 tab 11/07/17 Pregabalin [Lyrica] 225 mg PO QHS 02/11/18 Insulin Lispro [Humalog KwikPen] 10 units SQ TIDCM 05/02/18 Insulin Lispro [Humalog KwikPen] See Protocol SQ TIDCM 05/02/18 Magnesium Oxide 400 mg PO BID 05/02/18 Prazosin HCl 5 mg PO QHS 05/02/18 Metoprolol Tartrate [Lopressor (beta zita)] 12.5 mg PO BID #60 tablet 05/03/18 The following prescriptions were given: Metoprolol Tartrate [Lopressor (beta zita)] 12.5 mg PO BID #60 tablet Primary Care Physician: Alka Pringle [Primary Care Provider] - Please follow up with your Primary Care Physician in: 1 Week Test Results: Test results from this visit will be discussed in further detail at your follow- up appointment, if applicable. Please Follow Up With: Yong Ma MD When: 1-2 Weeks Please Follow Up With: Primary Forest Fire Prevention Specialist - May see RAY Kaur When: 1 Week Proposed Discharge Date: 05/03/18
--- NOTE | 2018-05-03 13:49 | PCM.DC.SUM ---
<Norah Triana - Last Filed: 05/03/18 14:38> Discharge Date and Diagnosis Date of Admission: 05/02/18 Date of Discharge: 05/03/18 - Primary Discharge Diagnosis 1. Chest pain with history of CAD status post PCI x2, ACS ruled out 2. Type 1 diabetes mellitus with peripheral neuropathy, poorly controlled 3. Hypertension 4. Hyperlipidemia 5. Chronic pain syndrome 6. History of pseudoseizure 7. MTHFR gene mutation 8. Depression/anxiety 9. History of hidradenitis suppurativa 10. Obesity - Secondary Discharge Diagnosis Chronic Problems (Last Updated 05/02/18 @ 08:54 by Yolanda Prakash) Chronic systolic (congestive) heart failure (Chronic) Ischemic cardiomyopathy (Chronic) Old anterior wall myocardial infarction (Chronic) History of coronary artery stent placement (Chronic 02/2014) [id number] and Mid LAD 01/2014, PCI-INOCENCIA-Mid RCA 02/2014 Essential (primary) hypertension (Chronic) Hyperlipidemia (Chronic) Hospital Course and Treatment Imaging Results: Diagnostic Data Chest X-Ray 05/02/18 15:34 IMPRESSION: Normal x-ray examination of the chest. Electronically Signed: Lupillo Mckeon MD at 15:54 EST Tel [phone], Service support , Dr. Luna- Cardiology Operations: None Summary of Care Provided: The patient is a 38 year old F admitted 05/02/18 due to chest pain. 1. Chest pain with history of CAD status post PCI x2-patient underwent cardiac catheterization May [address] Luna which showed patent prior stents. EF 45-50%. Patient was to continue medical management. Continue aspirin, statin, plavix, ranexa. Patient previously on carvedilol which was discontinued due to dizziness. Begin metoprolol 12.5mg mg p.o. twice daily. Cardiology consulted. Troponin negative. Patient underwent nuclear stress test which was negative for ischemia. Cardiology does not further recommend repeat cardiac catheterization at this time. Cardiac etiology of chest pain ruled out. Patient underwent gallbladder ultrasound as ordered by cardiology to rule out gallbladder contraction/inflammation. Results pending, will be reviewed prior to discharge. 2. Type 1 diabetes mellitus with peripheral neuropathy-reports she recently underwent nerve conduction studies. Has not received results of this. Reports most recent hemoglobin A1c was 14%. Repeat hemoglobin A1c 12.7%. Encourage follow-up with endocrinology. Patient states her accounting system expert is working on getting her an insulin pump. 3. Hypertension-stable, continue home isosorbide regimen. Initiated on metoprolol. 4. Hyperlipidemia-continue statin. 5. Chronic pain syndrome-continue amitriptyline, Lyrica. 6. History of pseudoseizure 7. MTHFR gene mutation-previously on vitamin B supplementation. No longer taking. 8. Depression/anxiety-continue Zoloft regimen. 9. History of hidradenitis suppurativa- prior I&D of abscesses. Hx of MRSA cx. 10. Obesity-encouraged diet and lifestyle modifications. General: Alert, Oriented x3, Cooperative HEENT: Atraumatic, PERRLA, EOMI, Normocephalic Neck: Supple, No JVD, Negative Carotid Bruits Lungs: Clear to auscultation, Normal air movement Cardiovascular: Regular rate, Regular Rhythm, Normal S1, Normal S2, No murmurs Abdomen: Bowel Sounds Present, Soft, Non Tender, Non-Distended, Obese Extremities: No clubbing, No cyanosis, No edema, Capillary Refill Less than 3 Seconds Skin: No rashes, No breakdown Musculoskeletal: No Tenderness to Palpation of Joints or Extremities Neurological: Cranial nerves II-XII grossly intact, Neuro grossly intact Psych/Mental Status: Normal Affect, Appropriate Patient seen and examined prior to discharge. Physical assessment as noted above. Patient is stable for discharge with follow up recommendations as noted above. This patient was seen by RAKESH Maldonado under the supervision of Dr. Michel. - Physical Exam Vital Signs Temp Pulse Resp BP Pulse Ox 98.0 F 81 18 103/68 96 05/03/18 13:42 05/03/18 13:42 05/03/18 13:42 05/03/18 13:42 05/03/18 13:42 Oxygen Flow Rate (L/min) 97 Oxygen Delivery Method Room Air Weight: 228 lb 13.437 oz Body Mass Index (BMI) 35.8 Finger Stick Blood Glucose 202 Intake and Output for Last 24 Hours 05/01/18 05/02/18 05/03/18 23:59 23:59 23:59 Intake Total 2140 / 2140 Balance 2140 / 2140 Laboratory Tests Past 24 Hrs 05/02/18 05/02/18 05/02/18 14:50 14:50 14:50 WBC 6.5 RBC 4.71 Hgb 13.3 Hct 40.1 MCV 85.1 MCH 28.2 MCHC 33.2 RDW 13.1 RDW Differential 40.6 Plt Count 236 MPV 10.0 Immature Gran % (Auto) 0.200 Neut % (Auto) 60.9 Lymph % (Auto) 29.0 [place] % (Auto) 7.4 Eos % (Auto) 2.2 Baso % (Auto) 0.3 Absolute Neuts (auto) 3.9 Absolute Lymphs (auto) 1.87 Total Counted Not Reportable PT INR APTT Sodium 138 Potassium 3.7 Chloride 102 Carbon Dioxide 27.0 Anion Gap 9 BUN 10 Creatinine 0.80 Estim Creat Clear Calc 93.63 Est GFR (MDRD) Af Amer 105 Est GFR (MDRD) Non-Af 86 BUN/Creatinine Ratio 12.6 Glucose 298 H Hemoglobin A1c Calcium 9.6 Magnesium 1.8 Total Bilirubin AST ALT Alkaline Phosphatase Troponin I < 0.015 Total Protein Albumin Globulin Albumin/Globulin Ratio Triglycerides Cholesterol LDL Cholesterol VLDL Cholesterol HDL Cholesterol 05/02/18 05/02/18 05/03/18 14:50 18:24 04:55 WBC 6.5 RBC 4.23 Hgb 12.3 Hct 36.4 L MCV 86.1 MCH 29.1 MCHC 33.8 RDW 13.2 RDW Differential 40.7 Plt Count 219 MPV 9.8 Immature Gran % (Auto) Neut % (Auto) Lymph % (Auto) [place] % (Auto) Eos % (Auto) Baso % (Auto) Absolute Neuts (auto) Absolute Lymphs (auto) Total Counted PT INR APTT Sodium Potassium Chloride Carbon Dioxide Anion Gap BUN Creatinine Estim Creat Clear Calc Est GFR (MDRD) Af Amer Est GFR (MDRD) Non-Af BUN/Creatinine Ratio Glucose Hemoglobin A1c 12.7 H Calcium Magnesium Total Bilirubin AST ALT Alkaline Phosphatase Troponin I < 0.015 Total Protein Albumin Globulin Albumin/Globulin Ratio Triglycerides Cholesterol LDL Cholesterol VLDL Cholesterol HDL Cholesterol 05/03/18 05/03/18 05/03/18 04:55 04:55 04:55 WBC RBC Hgb Hct MCV MCH MCHC RDW RDW Differential Plt Count MPV Immature Gran % (Auto) Neut % (Auto) Lymph % (Auto) [place] % (Auto) Eos % (Auto) Baso % (Auto) Absolute Neuts (auto) Absolute Lymphs (auto) Total Counted PT 13.3 INR 1.0 APTT 25.9 Sodium 140 Potassium 3.8 Chloride 104 Carbon Dioxide 26.0 Anion Gap 10 BUN 12 Creatinine 0.69 Estim Creat Clear Calc 108.56 Est GFR (MDRD) Af Amer 124 Est GFR (MDRD) Non-Af 102 BUN/Creatinine Ratio 17.5 Glucose 198 H Hemoglobin A1c Calcium 8.6 Magnesium Total Bilirubin 0.40 AST 19 ALT 33 Alkaline Phosphatase 58 Troponin I < 0.015 Total Protein 6.1 L Albumin 3.2 Globulin 2.9 Albumin/Globulin Ratio 1.1 Triglycerides 135 Cholesterol 128 LDL Cholesterol 55 VLDL Cholesterol 27 HDL Cholesterol 46 POC Glucose 05/03/18 05/03/18 05/02/18 06:32 04:56 22:54 POC Glucose 195 H 192 H 85 05/02/18 18:43 POC Glucose 147 H Discharge Diet: Low fat/ Low Cholesterol, Carb Control Diet Discharge Activity: Return to Normal Activity Call your doctor if you observe: Shortness of breath, Dizziness, Fainting spells, Chest pain Home Medications: Medications to take at Discharge Aspirin [Aspirin, Baby] 81 mg PO DAILY 03/04/15 Insulin Glargine [Lantus SoloStar Pen] 35 units SUBCUT BID 03/04/15 Sertraline HCl [Zoloft] 100 mg PO DAILY 11/25/15 Nitroglycerin [Nitrostat] 0.4 mg SUBLINGUAL Q5M PRN #1 bottle 11/26/15 ranolazine ER 1,000 mg tablet,extended release,12 hr 1,000 mg PO BID #60 tab 05/29/17 Amitriptyline HCl 50 mg PO QHS 08/10/17 atorvastatin 80 mg tablet 80 mg PO QHS #30 tab 08/13/17 clopidogrel 75 mg tablet 75 mg PO DAILY #90 tab 08/27/17 isosorbide mononitrate ER 30 mg tablet,extended release 24 hr 30 mg PO DAILY #90 tab 11/07/17 Pregabalin [Lyrica] 225 mg PO QHS 02/11/18 Insulin Lispro [Humalog KwikPen] 10 units SQ TIDCM 05/02/18 Insulin Lispro [Humalog KwikPen] See Protocol SQ TIDCM 05/02/18 Magnesium Oxide 400 mg PO BID 05/02/18 Prazosin HCl 5 mg PO QHS 05/02/18 Metoprolol Tartrate [Lopressor (beta zita)] 12.5 mg PO BID #60 tablet 05/03/18 Following Prescrptions Were Given to Patient: Metoprolol Tartrate [Lopressor (beta zita)] 12.5 mg PO BID #60 tablet Primary Care Physician: Alka Pringle [Primary Care Provider] - Please follow up with your Primary Care Physician in: 1 Week Please Follow Up With: Yong Ma MD When: 1-2 Weeks Please Follow Up With: Primary Fall Intern - May see RAY Kaur When: 1 Week Disposition: Home Minutes spent on discharge:: 35 Patient Condition:: Stable Medical Necessity - Tobacco Use Smoking Status: Never smoker Tobacco Use: Non-smoker Meaningful Use Info Meaningful Use Diagnoses (Choose all that apply): None applicable <MariluLisa Martinez - Last Filed: 05/03/18 16:11> Discharge Date and Diagnosis - Secondary Discharge Diagnosis Chronic Problems (Last Updated 05/02/18 @ 08:54 by Yolanda Prakash) Chronic systolic (congestive) heart failure (Chronic) Ischemic cardiomyopathy (Chronic) Old anterior wall myocardial infarction (Chronic) History of coronary artery stent placement (Chronic 02/2014) [id number] and Mid LAD 01/2014, PCI-INOCENCIA-Mid RCA 02/2014 Essential (primary) hypertension (Chronic) Hyperlipidemia (Chronic) Hospital Course and Treatment Imaging Results: 05/03/18 11:13 Gallbladder [US] Urgent Summary of Care Provided: Patient seen by Norah CAMERON under my supervision Patient was admitted with a complaint of chest pain. She has a history of CAD s/p stents. Chest pain was retrosternal, pressure-like, radiated to beneath her right shoulder blade and was rated a 10 out of 10 with associated dyspnea. EKG showed no acute ST changes and troponin x3 were negative. She had a stress test which was negative for any acute ischemia. The suspicion for gallbladder disease on account of atypical presentation of chest pain, she had a gallbladder ultrasound which showed only mild sludge and was negative for any evidence of gallbladder disease. Patient was discharged home on her home aspirin and Plavix, statin and beta-zita. She is follow-up with cardiology. She is also to follow up with accounting system expert on account of A1c being 12.7. Patient states her accounting system expert is working on getting her an insulin pump. Patient seen and examined. Chest pain had resolved. 12 point review of systems otherwise negative. Labs and vitals reviewed. Home medications reviewed and reconciled. o/e: Vital Signs Height 5 ft 7 in Weight: 228 lb 13.437 oz Weight in Pounds 228.8 lbs Pulse Ox 98 Temperature 98.0 F Pulse Rate 81 Respiratory Rate 18 Blood Pressure [BP] 119/66 Blood Pressure 103/68 Blood Pressure Position [BP] Semi-Fowlers Blood Pressure Position Supine eneral: Alert, Oriented x3, Cooperative HEENT: Atraumatic, PERRLA, EOMI, Normocephalic Neck: Supple, No JVD, Negative Carotid Bruits Lungs: Clear to auscultation, Normal air movement Cardiovascular: Regular rate, Regular Rhythm, Normal S1, Normal S2, No murmurs Abdomen: Bowel Sounds Present, Soft, Non Tender, Non-Distended, Obese Extremities: No clubbing, No cyanosis, No edema, Capillary Refill Less than 3 Seconds Skin: No rashes, No breakdown Musculoskeletal: No Tenderness to Palpation of Joints or Extremities Neurological: Cranial nerves II-XII grossly intact, Neuro grossly intact Psych/Mental Status: Normal Affect, Appropriate Plan as detailed above. I personally reviewed Norah Triana NP-C's note, assessment and plan and agree with it. - Physical Exam Vital Signs Temp Pulse Resp BP Pulse Ox 98.0 F 81 18 103/68 98 05/03/18 13:42 05/03/18 13:42 05/03/18 13:42 05/03/18 13:42 05/03/18 15:41 Oxygen Flow Rate (L/min) 97 Oxygen Delivery Method Room Air Weight: 228 lb 13.437 oz Body Mass Index (BMI) 35.8 Finger Stick Blood Glucose 202 Intake and Output for Last 24 Hours 05/01/18 05/02/18 05/03/18 23:59 23:59 23:59 Intake Total 2139 / 2139 Balance 2139 / 2139 Laboratory Tests Past 24 Hrs 05/02/18 05/02/18 05/02/18 14:50 14:50 14:50 WBC RBC Hgb Hct MCV MCH MCHC RDW RDW Differential Plt Count MPV PT INR APTT Sodium 138 Potassium 3.7 Chloride 102 Carbon Dioxide 27.0 Anion Gap 9 BUN 10 Creatinine 0.80 Estim Creat Clear Calc 93.63 Est GFR (MDRD) Af Amer 105 Est GFR (MDRD) Non-Af 86 BUN/Creatinine Ratio 12.6 Glucose 298 H Hemoglobin A1c 12.7 H Calcium 9.6 Magnesium 1.8 Total Bilirubin AST ALT Alkaline Phosphatase Troponin I < 0.015 Total Protein Albumin Globulin Albumin/Globulin Ratio Triglycerides Cholesterol LDL Cholesterol VLDL Cholesterol HDL Cholesterol 05/02/18 05/03/18 05/03/18 18:24 04:55 04:55 WBC 6.5 RBC 4.23 Hgb 12.3 Hct 36.4 L MCV 86.1 MCH 29.1 MCHC 33.8 RDW 13.2 RDW Differential 40.7 Plt Count 219 MPV 9.8 PT INR APTT Sodium 140 Potassium 3.8 Chloride 104 Carbon Dioxide 26.0 Anion Gap 10 BUN 12 Creatinine 0.69 Estim Creat Clear Calc 108.56 Est GFR (MDRD) Af Amer 124 Est GFR (MDRD) Non-Af 102 BUN/Creatinine Ratio 17.5 Glucose 198 H Hemoglobin A1c Calcium 8.6 Magnesium Total Bilirubin 0.40 AST 19 ALT 33 Alkaline Phosphatase 58 Troponin I < 0.015 Total Protein 6.1 L Albumin 3.2 Globulin 2.9 Albumin/Globulin Ratio 1.1 Triglycerides 135 Cholesterol 128 LDL Cholesterol 55 VLDL Cholesterol 27 HDL Cholesterol 46 05/03/18 05/03/18 04:55 04:55 WBC RBC Hgb Hct MCV MCH MCHC RDW RDW Differential Plt Count MPV PT 13.3 INR 1.0 APTT 25.9 Sodium Potassium Chloride Carbon Dioxide Anion Gap BUN Creatinine Estim Creat Clear Calc Est GFR (MDRD) Af Amer Est GFR (MDRD) Non-Af BUN/Creatinine Ratio Glucose Hemoglobin A1c Calcium Magnesium Total Bilirubin AST ALT Alkaline Phosphatase Troponin I < 0.015 Total Protein Albumin Globulin Albumin/Globulin Ratio Triglycerides Cholesterol LDL Cholesterol VLDL Cholesterol HDL Cholesterol POC Glucose 05/03/18 05/03/18 05/03/18 13:49 06:32 04:56 POC Glucose 239 H 195 H 192 H 05/02/18 05/02/18 22:54 18:43 POC Glucose 85 147 H Code Visit Inpatient E&M: [id number] Disch Hosp
--- NOTE | 2018-05-03 13:53 | DS.PCM_ITS ---
Addendum entered and electronically signed by RAKESH Maldonado 05/03/18 14:39: Code Visit Gallbladder ultrasound showed fatty infiltration of the liver. Small amount of sludge in the gallbladder lumen. No significant findings. Original Note: <Norah Triana - Last Filed: 05/03/18 14:38> Discharge Date and Diagnosis Date of Admission: 05/02/18 Date of Discharge: 05/03/18 - Primary Discharge Diagnosis 1. Chest pain with history of CAD status post PCI x2, ACS ruled out 2. Type 1 diabetes mellitus with peripheral neuropathy, poorly controlled 3. Hypertension 4. Hyperlipidemia 5. Chronic pain syndrome 6. History of pseudoseizure 7. MTHFR gene mutation 8. Depression/anxiety 9. History of hidradenitis suppurativa 10. Obesity - Secondary Discharge Diagnosis Chronic Problems (Last Updated 05/02/18 @ 08:54 by Yolanda Prakash) Chronic systolic (congestive) heart failure (Chronic) Ischemic cardiomyopathy (Chronic) Old anterior wall myocardial infarction (Chronic) History of coronary artery stent placement (Chronic 02/2014) [id number] and Mid LAD 01/2014, PCI-INOCECNIA-Mid RCA 02/2014 Essential (primary) hypertension (Chronic) Hyperlipidemia (Chronic) Hospital Course and Treatment Imaging Results: Diagnostic Data Chest X-Ray 05/02/18 15:34 IMPRESSION: Normal x-ray examination of the chest. Electronically Signed: Lupillo Mckeon MD at 15:54 EST Tel [phone], Service support , Dr. Luna- Cardiology Operations: None Summary of Care Provided: The patient is a 38 year old F admitted 05/02/18 due to chest pain. 1. Chest pain with history of CAD status post PCI x2-patient underwent cardiac catheterization May [address] Luna which showed patent prior stents. EF 45-50%. Patient was to continue medical management. Continue aspirin, statin, plavix, ranexa. Patient previously on carvedilol which was discontinued due to dizziness. Begin metoprolol 12.5mg mg p.o. twice daily. Cardiology consulted. Troponin negative. Patient underwent nuclear stress test which was negative for ischemia. Cardiology does not further recommend repeat cardiac catheterization at this time. Cardiac etiology of chest pain ruled out. Patient underwent gallbladder ultrasound as ordered by cardiology to rule out gallbladder contraction/inflammation. Results pending, will be reviewed prior to discharge. 2. Type 1 diabetes mellitus with peripheral neuropathy-reports she recently underwent nerve conduction studies. Has not received results of this. Reports most recent hemoglobin A1c was 14%. Repeat hemoglobin A1c 12.7%. Encourage follow-up with endocrinology. 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 3. Hypertension-stable, continue home isosorbide regimen. Initiated on metoprolol. 4. Hyperlipidemia-continue statin. 5. Chronic pain syndrome-continue amitriptyline, Lyrica. 6. History of pseudoseizure 7. MTHFR gene mutation-previously on vitamin B supplementation. No longer ta [place]. 8. Depression/anxiety-continue Zoloft regimen. 9. History of hidradenitis suppurativa- prior I&D of abscesses. Hx of MRSA cx. 10. Obesity-encouraged diet and lifestyle modifications. General: Alert, Oriented x3, Cooperative HEENT: Atraumatic, PERRLA, EOMI, Normocephalic Neck: Supple, No JVD, Negative Carotid Bruits Lungs: Clear to auscultation, Normal air movement Cardiovascular: Regular rate, Regular Rhythm, Normal S1, Normal S2, No murmurs Abdomen: Bowel Sounds Present, Soft, Non Tender, Non-Distended, Obese Extremities: No clubbing, No cyanosis, No edema, Capillary Refill Less than 3 Seconds Skin: No rashes, No breakdown Musculoskeletal: No Tenderness to Palpation of Joints or Extremities Neurological: Cranial nerves II-XII grossly intact, Neuro grossly intact Psych/Mental Status: Normal Affect, Appropriate Patient seen and examined prior to discharge. Physical assessment as noted above. Patient is stable for discharge with follow up recommendations as noted above. This patient was seen by RAKESH Maldonado under the supervision of Dr. Michel. - Physical Exam Vital Signs Temp Pulse Resp BP Pulse Ox 98.0 F 81 18 103/68 96 05/03/18 13:42 05/03/18 13:42 05/03/18 13:42 05/03/18 13:42 05/03/18 13:42 Oxygen Flow Rate (L/min) 97 Oxygen Delivery Method Room Air Weight: 228 lb 13.437 oz Body Mass Index (BMI) 35.8 Finger Stick Blood Glucose 202 Intake and Output for Last 24 Hours 05/01/18 05/02/18 05/03/18 23:59 23:59 23:59 Intake Total 2139 / 2139 Balance 2139 Laboratory Tests Past 24 Hrs 05/02/18 05/02/18 05/02/18 14:50 14:50 14:50 WBC 6.5 RBC 4.71 Hgb 13.3 Hct 40.1 MCV 85.1 MCH 28.2 MCHC 33.2 RDW 13.1 RDW Differential 40.6 Plt Count 236 MPV 10.0 Immature Gran % (Auto) 0.200 Neut % (Auto) 60.9 Lymph % (Auto) 29.0 Chaves % (Auto) 7.4 Eos % (Auto) 2.2 Baso % (Auto) 0.3 Absolute Neuts (auto) 3.9 Absolute Lymphs (auto) 1.87 Total Counted Not Reportable PT INR APTT Sodium 138 Potassium 3.7 Chloride 102 Carbon Dioxide 27.0 Anion Gap 9 BUN 10 Creatinine 0.80 Estim Creat Clear Calc 93.63 Est GFR (MDRD) Af Amer 105 Est GFR (MDRD) Non-Af 86 BUN/Creatinine Ratio 12.6 Glucose 298 H Hemoglobin A1c Calcium 9.6 Magnesium 1.8 Total Bilirubin AST ALT Alkaline Phosphatase Troponin I < 0.015 Total Protein Albumin Globulin Albumin/Globulin Ratio Triglycerides Cholesterol LDL Cholesterol VLDL Cholesterol HDL Cholesterol 05/02/18 05/02/18 05/03/18 14:50 18:24 04:55 WBC 6.5 RBC 4.23 Hgb 12.3 Hct 36.4 L MCV 86.1 MCH 29.1 MCHC 33.8 RDW 13.2 RDW Differential 40.7 Plt Count 219 MPV 9.8 Immature Gran % (Auto) Neut % (Auto) Lymph % (Auto) Chaves % (Auto) Eos % (Auto) Baso % (Auto) Absolute Neuts (auto) Absolute Lymphs (auto) Total Counted PT INR APTT Sodium Potassium Chloride Carbon Dioxide Anion Gap BUN Creatinine Estim Creat Clear Calc Est GFR (MDRD) Af Amer Est GFR (MDRD) Non-Af BUN/Creatinine Ratio Glucose Hemoglobin A1c 12.7 H Calcium Magnesium Total Bilirubin AST ALT Alkaline Phosphatase Troponin I < 0.015 Total Protein Albumin Globulin Albumin/Globulin Ratio Triglycerides Cholesterol LDL Cholesterol VLDL Cholesterol HDL Cholesterol 05/03/18 05/03/18 05/03/18 04:55 04:55 04:55 WBC RBC Hgb Hct MCV MCH MCHC RDW RDW Differential Plt Count MPV Immature Gran % (Auto) Neut % (Auto) Lymph % (Auto) Chaves % (Auto) Eos % (Auto) Baso % (Auto) Absolute Neuts (auto) Absolute Lymphs (auto) Total Counted PT 13.3 INR 1.0 APTT 25.9 Sodium 140 Potassium 3.8 Chloride 104 Carbon Dioxide 26.0 Anion Gap 10 BUN 12 Creatinine 0.69 Estim Creat Clear Calc 108.56 Est GFR (MDRD) Af Amer 124 Est GFR (MDRD) Non-Af 102 BUN/Creatinine Ratio 17.5 Glucose 198 H Hemoglobin A1c Calcium 8.6 Magnesium Total Bilirubin 0.40 AST 19 ALT 33 Alkaline Phosphatase 58 Troponin I < 0.015 Total Protein 6.1 L Albumin 3.2 Globulin 2.9 Albumin/Globulin Ratio 1.1 Triglycerides 135 Cholesterol 128 LDL Cholesterol 55 VLDL Cholesterol 27 HDL Cholesterol 46 POC Glucose 05/03/18 05/03/18 05/02/18 06:32 04:56 22:54 POC Glucose 195 H 192 H 85 05/02/18 18:43 POC Glucose 147 H Discharge Diet: Low fat/ Low Cholesterol, Carb Control Diet Discharge Activity: Return to Normal Activity Call your doctor if you observe: Shortness of breath, Dizziness, Fainting spells, Chest pain Home Medications: Medications to take at Discharge Aspirin [Aspirin, Baby] 81 mg PO DAILY 03/04/15 Insulin Glargine [Lantus SoloStar Pen] 35 units SUBCUT BID 03/04/15 Sertraline HCl [Zoloft] 100 mg PO DAILY 11/25/15 Nitroglycerin [Nitrostat] 0.4 mg SUBLINGUAL Q5M PRN #1 bottle 11/26/15 ranolazine ER 1,000 mg tablet,extended release,12 hr 1,000 mg PO BID #60 tab 05/29/17 Amitriptyline HCl 50 mg PO QHS 08/10/17 atorvastatin 80 mg tablet 80 mg PO QHS #30 tab 08/13/17 clopidogrel 75 mg tablet 75 mg PO DAILY #90 tab 08/27/17 isosorbide mononitrate ER 30 mg tablet,extended release 24 hr 30 mg PO DAILY #90 tab 11/07/17 Pregabalin [Lyrica] 225 mg PO QHS 02/11/18 Insulin Lispro [Humalog KwikPen] 10 units SQ TIDCM 05/02/18 Insulin Lispro [Humalog KwikPen] See Protocol SQ TIDCM 05/02/18 Magnesium Oxide 400 mg PO BID 05/02/18 Prazosin HCl 5 mg PO QHS 05/02/18 Metoprolol Tartrate [Lopressor (beta zita)] 12.5 mg PO BID #60 tablet 05/03/18 Following Prescrptions Were Given to Patient: Metoprolol Tartrate [Lopressor (beta zita)] 12.5 mg PO BID #60 tablet Primary Care Physician: Alka Pringle [Primary Care Provider] - Please follow up with your Primary Care Physician in: 1 Week Please Follow Up With: Yong Ma MD When: 1-2 Weeks Please Follow Up With: Primary Web Retailer - May see RAY Kaur When: 1 Week Disposition: Home Minutes spent on discharge:: 35 Patient Condition:: Stable Medical Necessity - Tobacco Use Smoking Status: Never smoker Tobacco Use: Non-smoker Meaningful Use Info Meaningful Use Diagnoses (Choose all that apply): None applicable <Lisa Michel - Last Filed: 05/03/18 16:11> Discharge Date and Diagnosis - Secondary Discharge Diagnosis Chronic Problems (Last Updated 05/02/18 @ 08:54 by Yolanda Prakash) Chronic systolic (congestive) heart failure (Chronic) Ischemic cardiomyopathy (Chronic) Old anterior wall myocardial infarction (Chronic) History of coronary artery stent placement (Chronic 02/2014) [id number] and Mid LAD 01/2014, PCI-INOCENCIA-Mid RCA 02/2014 Essential (primary) hypertension (Chronic) Hyperlipidemia (Chronic) Hospital Course and Treatment Imaging Results: 05/03/18 11:13 Gallbladder [US] Urgent Summary of Care Provided: Patient seen by Norah CAMERON under my supervision Patient was admitted with a complaint of chest pain. She has a history of CAD s/p stents. Chest pain was retrosternal, pressure-like, radiated to beneath her right shoulder blade and was rated a 10 out of 10 with associated dyspnea. EKG showed no acute ST changes and troponin x3 were negative. She had a stress test which was negative for any acute ischemia. The suspicion for gallbladder disease on account of atypical presentation of chest pain, she had a gallbladder ultrasound which showed only mild sludge and was negative for any evidence of gallbladder disease. Patient was discharged home on her home aspirin and Plavix, statin and beta-zita. She is follow-up with cardiology. She is also to follow up with installer metal flooring on account of A1c being 12.7. 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 Patient seen and examined. Chest pain had resolved. 12 point review of systems otherwise negative. Labs and vitals reviewed. Home medications reviewed and reconciled. o/e: Vital Signs Height 5 ft 7 in Weight: 228 lb 13.437 oz Weight in Pounds 228.8 lbs Pulse Ox 98 Temperature 98.0 F Pulse Rate 81 Respiratory Rate 18 Blood Pressure [BP] 119/66 Blood Pressure 103/68 Blood Pressure Position [BP] Semi-Fowlers Blood Pressure Position Supine eneral: Alert, Oriented x3, Cooperative HEENT: Atraumatic, PERRLA, EOMI, Normocephalic Neck: Supple, No JVD, Negative Carotid Bruits Lungs: Clear to auscultation, Normal air movement Cardiovascular: Regular rate, Regular Rhythm, Normal S1, Normal S2, No murmurs Abdomen: Bowel Sounds Present, Soft, Non Tender, Non-Distended, Obese Extremities: No clubbing, No cyanosis, No edema, Capillary Refill Less than 3 Seconds Skin: No rashes, No breakdown Musculoskeletal: No Tenderness to Palpation of Joints or Extremities Neurological: Cranial nerves II-XII grossly intact, Neuro grossly intact Psych/Mental Status: Normal Affect, Appropriate Plan as detailed above. I personally reviewed Norah Triana HAND BOX COVERER-C's note, assessment and plan and agree with it. - Physical Exam Vital Signs Temp Pulse Resp BP Pulse Ox 98.0 F 81 18 103/68 98 05/03/18 13:42 05/03/18 13:42 05/03/18 13:42 05/03/18 13:42 05/03/18 15:41 Oxygen Flow Rate (L/min) 97 Oxygen Delivery Method Room Air Weight: 228 lb 13.437 oz Body Mass Index (BMI) 35.8 Finger Stick Blood Glucose 202 Intake and Output for Last 24 Hours 05/01/18 05/02/18 05/03/18 23:59 23:59 23:59 Intake Total 2139 / 2140 Balance 214 / 2139 Laboratory Tests Past 24 Hrs 05/02/18 05/02/18 05/02/18 14:50 14:50 14:50 WBC RBC Hgb Hct MCV MCH MCHC RDW RDW Differential Plt Count MPV PT INR APTT Sodium 138 Potassium 3.7 Chloride 102 Carbon Dioxide 27.0 Anion Gap 9 BUN 10 Creatinine 0.80 Estim Creat Clear Calc 93.63 Est GFR (MDRD) Af Amer 105 Est GFR (MDRD) Non-Af 86 BUN/Creatinine Ratio 12.6 Glucose 298 H Hemoglobin A1c 12.7 H Calcium 9.6 Magnesium 1.8 Total Bilirubin AST ALT Alkaline Phosphatase Troponin I < 0.015 Total Protein Albumin Globulin Albumin/Globulin Ratio Triglycerides Cholesterol LDL Cholesterol VLDL Cholesterol HDL Cholesterol 05/02/18 05/03/18 05/03/18 18:24 04:55 04:55 WBC 6.5 RBC 4.23 Hgb 12.3 Hct 36.4 L MCV 86.1 MCH 29.1 MCHC 33.8 RDW 13.2 RDW Differential 40.7 Plt Count 219 MPV 9.8 PT INR APTT Sodium 140 Potassium 3.8 Chloride 104 Carbon Dioxide 26.0 Anion Gap 10 BUN 12 Creatinine 0.69 Estim Creat Clear Calc 108.56 Est GFR (MDRD) Af Amer 124 Est GFR (MDRD) Non-Af 102 BUN/Creatinine Ratio 17.5 Glucose 198 H Hemoglobin A1c Calcium 8.6 Magnesium Total Bilirubin 0.40 AST 19 ALT 33 Alkaline Phosphatase 58 Troponin I < 0.015 Total Protein 6.1 L Albumin 3.2 Globulin 2.9 Albumin/Globulin Ratio 1.1 Triglycerides 135 Cholesterol 128 LDL Cholesterol 55 VLDL Cholesterol 27 HDL Cholesterol 46 05/03/18 05/03/18 04:55 04:55 WBC RBC Hgb Hct MCV MCH MCHC RDW RDW Differential Plt Count MPV PT 13.3 INR 1.0 APTT 25.9 Sodium Potassium Chloride Carbon Dioxide Anion Gap BUN Creatinine Estim Creat Clear Calc Est GFR (MDRD) Af Amer Est GFR (MDRD) Non-Af BUN/Creatinine Ratio Glucose Hemoglobin A1c Calcium Magnesium Total Bilirubin AST ALT Alkaline Phosphatase Troponin I < 0.015 Total Protein Albumin Globulin Albumin/Globulin Ratio Triglycerides Cholesterol LDL Cholesterol VLDL Cholesterol HDL Cholesterol POC Glucose 05/03/18 05/03/18 05/03/18 13:49 06:32 04:56 POC Glucose 239 H 195 H 192 H 05/02/18 05/02/18 22:54 18:43 POC Glucose 85 147 H Code Visit Inpatient E&M: 61450 Disch Hosp
[2018-05-03 13:56] LABS: Bedside Glucose 239 mg/dL (70-110)
[2018-05-03] MEDS: Insulin Lispro 100 UNIT/ML INSULN.PEN SC (14:54)
[2018-05-03] MEDS: Insulin Lispro 100 UNIT/ML INSULN.PEN 10 UNIT SC (14:54)
== END 2018-05-03 16:00 | disposition home or self-care (01) ==
LOC: ED 15:15 → PCU 05-03 05:45
PROVIDERS: Admitting Provider Family Medicine; Emergency Provider Emergency Medicine; Family Provider Family Medicine; PCP Family Medicine; Visit Provider Student in an Organized Health Care Education/Training Program
DX: R07.89 Other chest pain (principal); I25.2 Old myocardial infarction; R11.0 Nausea; R06.02 Shortness of breath; R42 Dizziness and giddiness; R00.2 Palpitations; R00.0 Tachycardia, unspecified; E78.5 Hyperlipidemia, unspecified; I25.10 Atherosclerotic heart disease of native coronary artery without angina pectoris; F41.9 Anxiety disorder, unspecified; F32.9 Major depressive disorder, single episode, unspecified; Z79.02 Long term (current) use of antithrombotics/antiplatelets; Z79.899 Other long term (current) drug therapy; Z79.4 Long term (current) use of insulin; E10.42 Type 1 diabetes mellitus with diabetic polyneuropathy; Z79.82 Long term (current) use of aspirin; K21.9 Gastro-esophageal reflux disease without esophagitis; E66.9 Obesity, unspecified; Z68.35 Body mass index [BMI] 35.0-35.9, adult; Z71.3 Dietary counseling and surveillance; G89.4 Chronic pain syndrome; E72.12 Methylenetetrahydrofolate reductase deficiency; I50.22 Chronic systolic (congestive) heart failure; I11.0 Hypertensive heart disease with heart failure; G47.33 Obstructive sleep apnea (adult) (pediatric); E10.65 Type 1 diabetes mellitus with hyperglycemia
CPT/HCPCS: 36415; 71046; 76705; 78452; 80048; 80053; 80061; 82962; 83036; 83735; 84484; 85025; 85027; 85610; 85730; 93005; 93017; 96374; 96376; 97802; 99218; 99284; A9500; A4216; G0378; J2785

== ENCOUNTER 2018-06-16 16:42 | Emergency (ER) | payer MEDICAID, SELFPAY ==
[2018-05-02 17:50] VITALS: BMI 35.8
[2018-06-16 16:43] VITALS: BP 160/92; PULSE 99; RESP 18; TEMP 36.3; O2SAT 99; BMI 32.0
[2018-06-16 16:52] VITALS: TEMP 36.3
--- NOTE | 2018-06-16 17:25 | CT_ITS ---
STUDY: CT CHEST WITH CONTRAST REASON FOR EXAM: Female, 38 years old. Left axillary abscess RADIATION DOSAGE (If Supplied By Facility): CTDIvol = ( 15.93 ) mGy, DLP = ( 979.80 ) mGycm TECHNIQUE: Transaxial imaging was performed following intravenous administration of Isovue 300 100 IV. Individualized dose optimization techniques were used for this CT. COMPARISON: None. FINDINGS: The lungs are normal. There is no demonstrated pleural abnormality. Heart size is normal. There appears to be coronary artery stent however clinical correlation is recommended. Normal mediastinum. Normal hilar regions. Normal enhanced pulmonary arteries. There is borderline aneurysmal dilatation of the ascending aorta appearing approximate 4 cm in diameter. There is no aortic dissection. Normal osseous structures. There is inflammatory stranding in the left axillary fat without well-defined fluid collection or focal abscess. Mild nonspecific fatty infiltration of the liver. CT/Chest WITH Contrast IMPRESSION: Inflammatory changes within the left axilla but no well-defined abscess at this time. Coronary artery disease and borderline aneurysmal dilatation of the ascending aorta Electronically Signed: Jonathan James MD at 19:44 EST , Service support ,
[2018-06-16] MEDS: 0.9% Normal Saline 1,000 ML 15 ML IV (17:49)
[2018-06-16] MEDS: MethylPREDNISolone 125 MG/2 ML Vial IV (17:49)
[2018-06-16] MEDS: DiphenhydrAMINE 50 MG/ML Syringe 25 MG IV (17:49)
[2018-06-16 17:56] LABS: Absolute Lymphocyte Count 1.24 X10^3/ul (0.83-4.51); Absolute Neutrophil Count 7.4 X10^3/uL (2.0-7.7); Basophil# 0.02 X10^3/uL; Basophil% 0.2 % (0-1); Eosinophil# 0.07 X10^3/uL; Eosinophils% 0.8 % (0-5); Hematocrit 38.6 % (37-47); Lymphocyte # 1.24 X10^3/ul (4.0); Lymphocyte % 13.3 % (19-41); Mean Corp Hgb Conc 33.7 g/gl (32-36); Mean Corpuscular Hgb 28.6 pg (27.0-32.0); Mean Corpuscular Volume 84.8 fL (81-99); Mean Platelet Vol. 10.1 fl (6.2-12.0); Monocyte# 0.57 X10^3/uL; Monocyte% 6.1 % (0-10); Neutrophil # 7.38 X10^3/uL (2.7-7.7); Neutrophil % 79.4 % (47-70); Platelet Count 201 K/mm3 (150-450); RBC Distribution Width CV 13.2 % (11.6-14.6); RBC Distribution Width SD 40.2 fl (35.1-43.9); Red Blood Count 4.55 M/mm3 (4.2-5.4); White Blood Count 9.3 K/mm3 (4.4-11.0)
[2018-06-16 17:57] LABS: POSITIVE COUNT NO; POSITIVE DIFFERENTIAL NO; POSITIVE MORPHOLOGY NO
[2018-06-16] MEDS: Morphine 4 MG/ML Syringe IV ×2 (17:59→19:51)
[2018-06-16] MEDS: Ondansetron 4 MG/2 ML Vial IV ×2 (18:05→19:49)
[2018-06-16 18:15] LABS: Anion Gap 11 (5-15); BUN 8 mg/dL (7-18); BUN/Creat Ratio 9.5 RATIO (10-20); Calcium,Total 8.9 mg/dL (8.5-10.1); Chloride 102 mmol/L (98-107); Creatinine, Serum 0.84 mg/dL (0.55-1.02); EST Glomerular Filtration Rate 81 mL/min (>60); Est Glom Filt Rate - Afr Amer 98 mL/min (>60); Estimated Creatinine Clearance 89.17 ml/min; Glucose 474 mg/dL (74-106); Potassium 4.1 mmol/L (3.5-5.1); Sodium Level 136 mmol/L (136-145)
[2018-06-16 19:25] VITALS: BP 125/84; PULSE 88; RESP 16; TEMP 36.9; O2SAT 95
--- NOTE | 2018-06-16 20:20 | ED.VISSUMM ---
- ER Visit Summary Date of Service: 06/16/18 Chief Complaint: Abscess History of Present Illness: The patient is a 38 F who noted a blisterlike lesion under her left axilla on the . The area is now firm, painful, and swollen. Patient has a history of an MRSA abscess in her neck that tunneled and required surgery. She states in the outside it looked fine. She is concerned that is happening again. She does report having a fever of 100.9 at home prior to arrival. She did take Tylenol. Past history significant for prior NE she does have cardiac stent. She has a history of CHF, diabetes, hypertension, high cholesterol, ischemic cardiomyopathy, and HERNANDEZ. Physical Examination: Blood pressure is 160/92, otherwise vitals normal. She is afebrile. Head and neck examination unremarkable. Heart is regular rate and rhythm. Lung sounds are clear. Abdomen is soft nontender. Skin examination reveals a 3 x 5 cm area of induration in the left axilla with mild skin erythema. No fluctuance noted. Test Results: In light of the patient's history workup is initiated. CBC is normal. Chemistry studies significant only for glucose of 474. Blood cultures were drawn. CT the chest with IV contrast reveals inflammatory changes in the left axilla but no well-defined abscess is noted. Emergency Department Course and Treatment: Patient was given Benadryl and Solu-Medrol as pretreatment before CAT scan. She is given a dose of vancomycin and treated with morphine and Zofran for pain. Test results were discussed with her at length. I did review her last 2 wound cultures. Patient states she was sent home with doxycycline after her last hospital stay. She will be treated with doxycycline, Percocet, and Zofran. I recommended follow-up with Dr. Cabello who performed her last surgery for a wound check. Treatment Plan: [] Disposition: Discharge Impression: Cellulitis left axilla This note was generated with [employer] dictation software. It may contain incorrect words, spelling, and punctuation that were not noted in review of the chart prior to signing ED Disposition - Plan for ED Patient: Disposition: Home or Assisted Living Instructions: ED Staph Infec Abx Tx Only Prescriptions: Oxycodone HCl/Acetaminophen [Percocet 5/325] 1 tablet PO Q6H PRN PRN 3 Days #12 tablet PRN Reason: Pain Ondansetron [Zofran Odt] 4 mg PO Q8H PRN PRN #10 tablet PRN Reason: Nausea Doxycycline 100 mg PO BID #20 capsule Referrals: Mario Cabello MD [STAFF PHYSICIAN] - 3-5 Days if not improving Alka Pringle [Primary Care Provider] -
[2018-06-16 20:27] VITALS: BP 131/84; PULSE 91; RESP 18; O2SAT 97
[2018-06-16 21:25] VITALS: BP 138/92; PULSE 75; RESP 16; TEMP 36.7; O2SAT 95
== END 2018-06-16 21:20 | disposition home or self-care (01) ==
PROVIDERS: Emergency Provider Emergency Medicine; Family Provider Family Medicine; PCP Family Medicine
DX: L03.112 Cellulitis of left axilla (principal); E11.9 Type 2 diabetes mellitus without complications; I10 Essential (primary) hypertension; E78.00 Pure hypercholesterolemia, unspecified; K75.81 Nonalcoholic steatohepatitis (NASH); I25.5 Ischemic cardiomyopathy; I25.2 Old myocardial infarction; Z95.5 Presence of coronary angioplasty implant and graft; Z86.14 Personal history of Methicillin resistant Staphylococcus aureus infection
CPT/HCPCS: 36415; 71260; 80048; 85025; 87040; 96365; 96366; 96375; 96376; 99283; J7030; J7040; Q9967; A4216; J2405

== ENCOUNTER 2018-06-25 16:07 | Emergency (ER) | payer MEDICAID, SELFPAY ==
[2018-06-25 16:08] VITALS: BP 153/95; PULSE 90; RESP 18; TEMP 36.3; O2SAT 99; BMI 31.8
[2018-06-25 16:44] VITALS: BP 132/91; PULSE 91; RESP 14; TEMP 36.9; O2SAT 97
[2018-06-25 16:47] VITALS: BP 132/91; PULSE 90; RESP 14; O2SAT 98
[2018-06-25] MEDS: Ondansetron 4 MG/2 ML Vial IV (17:30)
[2018-06-25] MEDS: Morphine 4 MG/ML Syringe IV (17:30)
[2018-06-25] MEDS: 0.9% Normal Saline 1,000 ML 1000 ML IV (17:30)
[2018-06-25 17:34] LABS: Absolute Lymphocyte Count 1.56 X10^3/ul (0.83-4.51); Absolute Neutrophil Count 4.8 X10^3/uL (2.0-7.7); Basophil# 0.02 X10^3/uL; Basophil% 0.3 % (0-1); Eosinophil# 0.13 X10^3/uL; Eosinophils% 1.9 % (0-5); Hematocrit 37.6 % (37-47); Hemoglobin 12.9 g/dl (12.0-15.0); Lymphocyte # 1.56 X10^3/ul (4.0); Lymphocyte % 22.4 % (19-41); Mean Corp Hgb Conc 34.3 g/gl (32-36); Mean Corpuscular Hgb 29.2 pg (27.0-32.0); Mean Corpuscular Volume 85.1 fL (81-99); Mean Platelet Vol. 10.3 fl (6.2-12.0); Monocyte# 0.42 X10^3/uL; Neutrophil % 69.1 % (47-70); POSITIVE COUNT NO; POSITIVE DIFFERENTIAL NO; POSITIVE MORPHOLOGY NO; Platelet Count 190 K/mm3 (150-450); RBC Distribution Width CV 12.9 % (11.6-14.6); RBC Distribution Width SD 39.7 fl (35.1-43.9); Red Blood Count 4.42 M/mm3 (4.2-5.4)
[2018-06-25 17:44] LABS: Anion Gap 9 (5-15); BUN 8 mg/dL (7-18); Calcium,Total 8.9 mg/dL (8.5-10.1); Chloride 100 mmol/L (98-107); Creatinine, Serum 0.73 mg/dL (0.55-1.02); EST Glomerular Filtration Rate 95 mL/min (>60); Est Glom Filt Rate - Afr Amer 115 mL/min (>60); Estimated Creatinine Clearance 102.61 ml/min; Glucose 430 mg/dL (74-106); Potassium 4.1 mmol/L (3.5-5.1); Sodium Level 132 mmol/L (136-145)
[2018-06-25 18:20] VITALS: BP 104/49; PULSE 84; PULSE 85; RESP 16; TEMP 37; O2SAT 95; O2SAT 97
--- NOTE | 2018-06-25 19:11 | ED.DCSUM_ITS ---
- ER Visit Summary Date of Service: 06/25/18 Chief Complaint: Abscess History of Present Illness: The patient is a 38 F who presents with abscess to her left axilla and chest wall area that has been getting worse for the past 2 days. Patient states she has been having some purulent drainage from the area. Patient is currently on doxycycline. Patient denies any fevers or chills. Patient is concerned that this may spread because she had a similar abscess in her sublingual area that had to be incised and removed surgically. Physical Examination: Vital signs are stable. Patient is afebrile. Patient is in no acute distress. Oral mucosa is pink and moist. Neck is supple. Trachea is midline. Heart was regular rate and rhythm. Lungs are clear and equal bilateral. Abdomen is soft and nontender. Skin is warm dry. There is a tender erythematous area in the left axilla and chest wall area. There is some purulent drainage over the area. There is some induration noted. There is no axillary adenopathy appreciated. Remaining physical exam is within normal limits. Test Results: CBC and metabolic profile were obtained and were normal except for an elevated glucose of 430. Wound culture was obtained and is pending. Emergency Department Course and Treatment: Patient was given a prescription for further doxycycline. Patient was also given a prescription for Keflex for broader coverage. Patient was instructed to use warm compresses to the area. Patient was instructed to follow-up with her primary care physician and surgeon in 5-7 days. Patient understood and was agreeable with the plan. All questions were answered. Disposition: Discharge home Impression: Left chest wall abscess This note was generated with [employer] dictation software. It may contain incorrect words, spelling, and punctuation that were not noted in review of the chart prior to signing ED Disposition - Plan for ED Patient: Disposition: Home or Assisted Living Diagnosis: Abscess Instructions: ED Staph Infec Abx Tx Only Prescriptions: Cephalexin [Keflex] 500 mg PO Q6 #40 cap Doxycycline 100 mg PO BID #20 cap Referrals: Mario Cabello MD [STAFF PHYSICIAN] - 3-5 Days Alka Pringle [Primary Care Provider] - 3-5 Days if not improving
[2018-06-25 19:40] VITALS: BP 111/79; PULSE 98; RESP 17; O2SAT 95
--- NOTE | 2018-06-25 19:41 | ED.RN ---
IV DC'ED, CATHETER INTACT, SMALL GAUZE DRESSING PLACED. DISCHARGE INSTRUCTIONS GIVEN TO AND REVIEWED WITH PATIENT, PATIENT DENIES QUESTIONS OR CONCERNS AND VOICES UNDERSTANDING OF DISCHARGE INSTRUCTIONS. PT AMBULATES OUT OF ROOM WITHOUT DIFFICULTY.
--- NOTE | 2018-06-27 09:08 | ED.RN ---
Dr Valadez reviewed wound cx results no additional treatment needed.
== END 2018-06-25 19:43 | disposition home or self-care (01) ==
PROVIDERS: Emergency Provider Emergency Medicine; Family Provider Family Medicine; PCP Family Medicine
DX: L02.213 Cutaneous abscess of chest wall (principal); R51 Headache; E11.9 Type 2 diabetes mellitus without complications; I10 Essential (primary) hypertension; E78.00 Pure hypercholesterolemia, unspecified; I25.2 Old myocardial infarction; Z79.4 Long term (current) use of insulin; Z79.82 Long term (current) use of aspirin; F32.9 Major depressive disorder, single episode, unspecified; F41.9 Anxiety disorder, unspecified
CPT/HCPCS: 80048; 85025; 87070; 87075; 87077; 87186; 87205; 99284; J7030; A4216; J2405

== ENCOUNTER 2018-12-04 17:11 | Observation (INO) | payer MEDICAID, SELFPAY ==
[2018-06-27 09:10] VITALS: BMI 31.8
[2018-12-04] VITALS (9 sets, daily range): BP systolic 104–149; BP diastolic 72–90; PULSE 71–94; RESP 12–20; TEMP 36.3–36.6; O2SAT 97–99; BMI 30.5; BMI 31.4
--- NOTE | 2018-12-04 17:51 | CT_ITS ---
STUDY: CT BRAIN WITHOUT CONTRAST REASON FOR EXAM: Female, 38 years old. Headache and facial pain RADIATION DOSAGE (If Supplied By Facility): CTDIvol = ( 44.99 ) mGy, DLP = ( 779.24 ) mGycm TECHNIQUE: Transaxial CT imaging of the brain was performed without administration of intravenous contrast material. Individualized dose optimization techniques were used for this CT. COMPARISON: 01/22/2017 FINDINGS: Normal soft tissue structures. Normal calvarium. Normal size ventricles and extra-axial spaces for the patient's age. Normal white matter tracts of the cerebral hemispheres. Normal basal ganglia and thalami. Normal brainstem. Normal cerebellum. There is no intracranial hemorrhage. There are no findings of an acute ischemic infarction. Normal visualized paranasal sinuses. CT/Brain/Head without Contrast IMPRESSION: Normal unenhanced CT scan of the brain. Electronically Signed: Stanton Taylor DO at 18:55 EDT Tel , Service support ,
--- NOTE | 2018-12-04 17:51 | CT_ITS ---
STUDY: CT FACIAL BONES WITHOUT CONTRAST REASON FOR EXAM: Female, 38 years old. Headache and facial pain RADIATION DOSAGE (If Supplied By Facility): CTDIvol = ( 25.23 ) mGy, DLP = ( 619.14 ) mGycm TECHNIQUE: The patient was scanned in a multi detector CT scanner. Sagittal and coronal images were reconstructed. Individualized dose optimization techniques were used for this CT. COMPARISON: None. FINDINGS: Normal soft tissue structures. Normal orbital camargo and orbital contents. Normal nasal bones and anterior nasal spine. Normal facial bones. There is no demonstrated fracture. Normal visualized paranasal sinuses. CT/Sinus/Facial Bone IMPRESSION: Normal unenhanced CT of the facial bones. Electronically Signed: Stanton Taylor DO at 18:56 EDT Tel , Service support ,
--- NOTE | 2018-12-04 17:51 | EKG12_ITS ---
Test Reason : CP Blood Pressure : / mmHG Vent. Rate : 089 BPM Atrial Rate : 089 BPM P-R Int : 166 ms QRS Dur : 102 ms QT Int : 406 ms P-R-T Axes : 051 -22 052 degrees QTc Int : 493 ms Normal sinus rhythm Anterolateral infarct (cited on or before 02-MAY-2018), age undetermined Abnormal ECG Confirmed by ELIS OLIVARES ([id number]), book editor MITA HAN ([id number]) on 12/09/2018 1:28:04 PM Referred By: Uriah Nicole Confirmed By:ELIS OLIVARES
--- NOTE | 2018-12-04 17:51 | CT_ITS ---
STUDY: CT CERVICAL SPINE WITHOUT CONTRAST REASON FOR EXAM: Female, 38 years old. Neck pain RADIATION DOSAGE (If Supplied By Facility): CTDIvol = ( 29.38 ) mGy, DLP = ( 613.57 ) mGycm TECHNIQUE: High resolution transaxial imaging was performed without contrast material. Sagittal and coronal images were reconstructed. Individualized dose optimization techniques were used for this CT. COMPARISON: None FINDINGS: Normal craniovertebral junction. Normal anterior atlantoaxial articulation. Normal odontoid process. There is straightening of the normal cervical lordosis. Normal vertebral bodies and posterior osseous elements. C2-3: Normal endplates. Normal disc height and morphology. Normal central canal and intervertebral neuroforamina. C3-4: Normal endplates. Normal disc height and morphology. Normal central canal and intervertebral neuroforamina. C4-5: Normal endplates. Normal disc height and morphology. Normal central canal and intervertebral neuroforamina. C5-6: Normal endplates. Normal disc height and morphology. Normal central canal and intervertebral neuroforamina. C6-7: Normal endplates. Normal disc height and morphology. Normal central canal and intervertebral neuroforamina. C7-T1: Normal endplates. Normal disc height and morphology. Normal central canal and intervertebral neuroforamina. Normal visualized soft tissue structures. CT/Spine Cervical without Contras IMPRESSION: Straightening of the normal cervical lordosis. Remainder is within normal limits. Electronically Signed: Stanton Taylor DO at 19:11 EDT Tel , Service support ,
--- NOTE | 2018-12-04 18:00 | RAD_ITS ---
STUDY: X-RAY CHEST REASON FOR EXAM: Female, 38 years old. Syncope TECHNIQUE: Single AP portable view of the chest. COMPARISON: 05/02/2018 FINDINGS: The lungs are clear and expanded. There is no demonstrated pleural abnormality. Normal size heart. Normal mediastinum and charlene. Normal visualized pulmonary arteries. Normal visualized aortic arch and descending thoracic aorta. Normal visualized thoracic spine. Normal visualized ribs, clavicles, and shoulders. There is no demonstrated abnormality of the visualized soft tissue structures of the upper abdomen. RAD/Chest 1 View (Portable) IMPRESSION: Normal x-ray examination of the chest. Electronically Signed: Stanton Taylor DO at 18:24 EDT Tel , Service support ,
[2018-12-04 18:06] LABS: Absolute Lymphocyte Count 1.92 X10^3/uL (0.83-4.51); Absolute Neutrophil Count 4.3 X10^3/uL (2.0-7.7); Basophil# 0.04 X10^3/uL; Basophil% 0.6 % (0-1); Eosinophil# 0.13 X10^3/uL; Eosinophils% 1.9 % (0-5); Hematocrit 40.6 % (37-47); Hemoglobin 13.8 g/dL (12.0-15.0); Lymphocyte # 1.92 X10^3/ul (4.0); Lymphocyte % 27.9 % (19-41); Mean Corpuscular Hgb 29.3 pg (27.0-32.0); Mean Corpuscular Volume 86.2 fL (81-99); Mean Platelet Vol. 10.1 fl (6.2-12.0); Monocyte# 0.42 X10^3/uL; Monocyte% 6.1 % (0-10); NRBC Flagged by Analyzer 0 % (0-5); Neutrophil # 4.34 X10^3/uL (2.7-7.7); Neutrophil % 63.2 % (47-70); Platelet Count 252 K/mm3 (150-450); RBC Distribution Width CV 12.4 % (11.6-14.6); RBC Distribution Width SD 38.9 fl (35.1-43.9); Red Blood Count 4.71 M/mm3 (4.2-5.4); White Blood Count 6.9 K/mm3 (4.4-11.0)
[2018-12-04] MEDS: proMETHazine 25 MG/ML Syringe 12.5 MG IV (18:06)
[2018-12-04] MEDS: Morphine 4 MG/ML Syringe IV (18:06)
[2018-12-04 18:11] LABS: International Normalized Ratio 0.9; Prothrombin Time (Protime)PT. 12.1 SECONDS (11.7-14.9)
[2018-12-04 18:12] LABS: Partial Thromboplast Time 24.6 Seconds (24.1-36.2)
[2018-12-04] MEDS: 0.9% Normal Saline 1,000 ML 999 ML IV ×2 (18:14→19:22)
[2018-12-04 18:19] LABS: Internal QC Validated? YES +Cl - CLEAR BKGD; Pregnancy, Serum, hCG Quali. NEGATIVE Negative
[2018-12-04 18:27] LABS: Anion Gap 5 (5-15); BUN 12 mg/dL (7-18); BUN/Creat Ratio 16.9 RATIO (10-20); Calcium,Total 9.2 mg/dL (8.5-10.1); Chloride 101 mmol/L (98-107); Creatinine, Serum 0.71 mg/dL (0.55-1.02); EST Glomerular Filtration Rate 98 mL/min (>60); Est Glom Filt Rate - Afr Amer 119 mL/min (>60); Glucose 239 mg/dL (74-106); Potassium 3.6 mmol/L (3.5-5.1); Sodium Level 135 mmol/L (136-145)
--- NOTE | 2018-12-04 19:32 | HP.PCM_ITS ---
Problem List (1) Ischemic cardiomyopathy Status: Chronic (2) Old anterior wall myocardial infarction Status: Chronic (3) History of coronary artery stent placement Status: Chronic Comment: [id number] and Mid LAD 01/2014, PCI-INOCENCIA-Mid RCA 02/2014 (4) Essential (primary) hypertension Status: Chronic (5) Hyperlipidemia Status: Chronic Qualifiers: (6) Chest pain Status: Acute History of Present Illness Date of Admission: 12/04/18 Chief Complaint: chest pain The patient is a 38 year old F with a significant history of anxiety depression; ischemic cardiomyopathy; hypertension; CAD status post stent; and diabetes mellitus who presented to emergency department with 1 day history of severe substernal episodic chest pain. She describes her chest pain as tight squeezing and coldness. The chest pain radiated to her right shoulder. She denies any aggravating or ameliorating factor. Associated with her symptoms is nausea without vomiting. Also patient reports an episode where she blacked out in the left eye. She reports seeing floaters. Also reportedly she blacked out completely and fell. Patient reports heaviness of her tongue. Brain CT at the emergency department was unremarkable. Recently her blood glucose at home has been elevated. Past Medical History Past Medical History (Chronic Problems): Chronic Problems (Last Reviewed 12/04/18 @ 21:19 by Uriah Nicole MD) Chronic systolic (congestive) heart failure (Chronic) Ischemic cardiomyopathy (Chronic) Old anterior wall myocardial infarction (Chronic) History of coronary artery stent placement (Chronic 02/2014) [id number] and Mid LAD 01/2014, PCI-INOCENCIA-Mid RCA 02/2014 Essential (primary) hypertension (Chronic) Hyperlipidemia (Chronic) Medical History: Medical History (Last Reviewed 12/05/18 @ 00:55 by Uriah Nicole MD) Chronic systolic (congestive) heart failure (Chronic) I50.22 Ischemic cardiomyopathy (Chronic) I25.5 Old anterior wall myocardial infarction (Chronic) I25.2 Essential (primary) hypertension (Chronic) I10 Hyperlipidemia (Chronic) E78.5 Facial cellulitis L03.211 Anxiety and depression F41.9, F32.9 Type 2 diabetes mellitus E11.9 Facial cellulitis (Inactive) L03.211 Neck abscess (Inactive) L02.11 Syncope (Inactive) R55 Allergies Iodinated Contrast Media [Iodinated Contrast Media - IV Dye] Allergy (Verified 07/03/18 13:54) Hives Penicillins Allergy (Verified 07/03/18 13:54) Rash Sulfa (Sulfonamide Antibiotics) Allergy (Verified 07/03/18 13:54) Hives Beta-Blockers (Beta-Adrenergic Bloc Adverse Reaction (Verified 07/03/18 13:54) Low blood pressure metformin Adverse Reaction (Verified 07/03/18 13:54) Upset Stomach nitroglycerin IV Allergy (Uncoded 06/25/18 16:10) DROPS HR nitro drips per pt will drop bp quick and will bottom out Home Medications: Ambulatory Orders Medication Instructions Recorded Aspirin [Aspirin, Baby] 81 mg PO DAILY 03/04/15 Sertraline HCl [Zoloft] 100 mg PO DAILY 11/25/15 Nitroglycerin (INPATIENT USE) 0.4 mg SUBLINGUAL Q5M PRN #1 bottle 11/26/15 [Nitrostat] isosorbide mononitrate ER 30 mg 30 mg PO DAILY #90 tab 11/07/17 tablet,extended release 24 hr Insulin Lispro [Humalog KwikPen] 26 units SQ TIDCM 05/02/18 Insulin Lispro [Humalog KwikPen] See Protocol SQ TIDCM 05/02/18 Metoprolol Tartrate [Lopressor 12.5 mg PO BID #60 tab 05/03/18 (beta zita)] Gabapentin [Neurontin] 300 mg PO DAILY 06/16/18 Ondansetron [Zofran Odt] 4 mg PO Q8H PRN PRN #10 tab 06/16/18 ranolazine ER 1,000 mg 1,000 mg PO BID #60 tab 08/05/18 tablet,extended release,12 hr atorvastatin 80 mg tablet 80 mg PO QHS #30 tab 09/05/18 clopidogrel 75 mg tablet 75 mg PO DAILY #90 tab 09/05/18 magnesium oxide 400 mg (241.3 mg 400 mg PO BID #60 tab 10/15/18 magnesium) tablet Gabapentin [Neurontin] 1,200 mg PO QHS 12/04/18 Insulin Glargine,Hum.rec.anlog 35 units SQ BID 12/04/18 [Basaglar Kwikpen U-100] Surgical History: Surgical History (Last Reviewed 12/05/18 @ 00:55 by Uriah Nicole MD) History of coronary artery stent placement (Chronic) Onset Date: 02/2014 Z95.5 [id number] and Mid LAD 01/2014, PCI-INOCENCIA-Mid RCA 02/2014 History of left heart catheterization Onset Date: 12/15/16 Z98.890 History of lumbar fusion Z98.1 History of tubal ligation Z98.51 Surgical History: - - PCI x2, bilateral tubal ligation, back surgery with L4-L5 rods and screws in place, tonsillectomy. 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: Anxiety, Depression NAPRAPATH History: No pertinent NAPRAPATH history Lives: With Family Smoking Status: Former smoker - *Family History Paternal Family History: Family History (Last Reviewed 12/05/18 @ 00:57 by Uriah Nicole MD) Father Cancer Brother Diabetes Sister Diabetes Heart disease Hypertension High cholesterol Mother Heart disease High cholesterol Hypertension CVA (cerebral vascular accident) Grandmother Heart disease High cholesterol Hypertension Grandfather Heart disease High cholesterol Hypertension CVA (cerebral vascular accident) History Items: Heart Disease Maternal Family History: Family History (Last Reviewed 12/05/18 @ 00:57 by Uriah Nicole MD) Father Cancer Brother Diabetes Sister Diabetes Heart disease Hypertension High cholesterol Mother Heart disease High cholesterol Hypertension CVA (cerebral vascular accident) Grandmother Heart disease High cholesterol Hypertension Grandfather Heart disease High cholesterol Hypertension CVA (cerebral vascular accident) History Items: Stroke Review of Systems Constitutional: Denies: Chills, Fever, Weight Change HEENT: Denies: Head Aches, Sinus Congestion, Sinus Drainage Cardiovascular: Reports: Chest Pain, Syncope. Denies: Palpitations Respiratory: Denies: Cough, Shortness of breath at rest, Sputum production Gastrointestinal: Denies: Abdominal Pain, Nausea, Vomiting Genitourinary: Denies: Dysuria Musculoskeletal: Denies: Joint Pain, Joint Tenderness Skin: Denies: Rash, Wounds Neurological: Denies: Numbness, Tingling, Focal weakness Psychiatric: Denies: Anxiety, Depression, Homicidal Ideations, Suicidal Ideations Hematologic/ Lymphatic: Denies: Easy Bruising, Easy Bleeding VTE Information - Inpt Only VTE Present on Admission: No VTE Mechan Device Prophylaxis: None VTE Pharm Prophylaxis ordered?: Yes Patient Problems: Active and Suspected Problems (Last Reviewed 12/04/18 @ 21:19 by Uriah Nicole MD) Chest pain (Acute) - Physical Exam General: Alert, Oriented x3, Cooperative HEENT: Atraumatic, PERRLA, EOMI, Normocephalic Neck: Supple, No JVD, Negative Carotid Bruits Lungs: Clear to auscultation, Normal air movement Cardiovascular: Regular rate, No murmurs Abdomen: Bowel Sounds Present, Soft, Non Tender Extremities: No edema, Capillary Refill Less than 3 Seconds Skin: No rashes, No breakdown Musculoskeletal: No Tenderness to Palpation of Joints or Extremities Neurological: Cranial nerves II-XII grossly intact, Neuro grossly intact, Muscle tone normal, - - No dysmetria Psych/Mental Status: Normal Affect, Appropriate Vital Signs Temp Pulse Resp BP Pulse Ox 97.3 F L 94 20 H 124/85 H 98 12/04/18 17:12 12/04/18 19:23 12/04/18 19:23 12/04/18 19:23 12/04/18 19:23 Oxygen Flow Rate (L/min) 2 Oxygen Delivery Method Room Air Weight: 88.451 kg Body Mass Index (BMI) 30.5 Finger Stick Blood Glucose 202 Laboratory Tests Past 24 Hrs 12/04/18 12/04/18 12/04/18 17:30 17:30 17:30 WBC 6.9 RBC 4.71 Hgb 13.8 Hct 40.6 MCV 86.2 MCH 29.3 MCHC 34.0 RDW Std Deviation 38.9 RDW Coeff of [place] 12.4 Plt Count 252 MPV 10.1 Immature Gran % (Auto) 0.300 Neut % (Auto) 63.2 Lymph % (Auto) 27.9 [place] % (Auto) 6.1 Eos % (Auto) 1.9 Baso % (Auto) 0.6 Absolute Neuts (auto) 4.3 Absolute Lymphs (auto) 1.92 Nucleated RBC % 0 PT 12.1 INR 0.9 APTT 24.6 Sodium 135 L Potassium 3.6 Chloride 101 Carbon Dioxide 29.0 Anion Gap 5 BUN 12 Creatinine 0.71 Estim Creat Clear Calc 105.50 Est GFR (MDRD) Af Amer 119 Est GFR (MDRD) Non-Af 98 BUN/Creatinine Ratio 16.9 Glucose 239 H Calcium 9.2 Troponin I < 0.015 Serum , Qual Acetone Level 12/04/18 12/04/18 17:30 18:00 WBC RBC Hgb Hct MCV MCH MCHC RDW Std Deviation RDW Coeff of [place] Plt Count MPV Immature Gran % (Auto) Neut % (Auto) Lymph % (Auto) [place] % (Auto) Eos % (Auto) Baso % (Auto) Absolute Neuts (auto) Absolute Lymphs (auto) Nucleated RBC % PT INR APTT Sodium Potassium Chloride Carbon Dioxide Anion Gap BUN Creatinine Estim Creat Clear Calc Est GFR (MDRD) Af Amer Est GFR (MDRD) Non-Af BUN/Creatinine Ratio Glucose Calcium Troponin I Serum , Qual NEGATIVE Acetone Level NEGATIVE Assessment/Plan All Active Problems (Last Reviewed 12/04/18 @ 21:19 by Uriah Nicole MD) Chest pain (Acute) Lumbar stenosis (Resolved) The patient is a 38 year old F with a significant history of anxiety depression; ischemic cardiomyopathy; hypertension; CAD status post stent; and diabetes mellitus who presented to emergency department with 1 day history of severe substernal episodic chest pain; loss of vision of left eye; syncope and heaviness of tongue consistent with chest pain and syncope. Chest pain Admit to a monitored bed on PCU CXR independently reviewed confirms no acute cardiopulmonary. EKG showed Q waves in V1 to V6; and II and aVF. This is unchanged from that of May 03, 2018. ASA 81 mg p.o. daily Plavix continued SL NTG 0.4 mg prn as needed for chest pain Imdur and metoprolol continued Morphine as needed for pain We will check lipid panel. Statin: High-intensity statin continued Serial cardiac enzymes Stat EKG as needed for chest pain Ranexa continued. Her last stress test in general this year was unremarkable. Because of her extensive medical history we will consult cardiology. Syncope Cardiac work-up as above. Reportedly patient was at [facility] about 2 to 3 months ago for chest pain where she thinks she had echocardiogram. We will request records from [facility]. Unlikely TIA. Will check NIH. Discussed with patient to follow-up with sleeve bottom feller if inpatient work-up is unremarkable. MRI/MRA of head/neck CT of facial bone is unremarkable Cervical spine CT shows straightening of the normal cervical lordosis. Remainder was unremarkable. Diabetes mellitus On presentation his blood glucose was not within goal Basal, prandial and correction scale insulin continued. Accu-Chek q. before meals at bedtime and 3 AM. Adjust blood glucose as necessary. Depression Zoloft continued Neuropathy Neurontin continued DVT prophylaxis Lovenox ordered Code Visit OBSV E&M: 86111 Initial observation care L3
--- NOTE | 2018-12-04 19:37 | ED.DCSUM_ITS ---
- ER Visit Summary Date of Service: 12/04/18 Chief Complaint: Chest pain History of Present Illness: The patient is a 38 F with chest pain since yesterday evening. This was associated with some headache and nausea. She has a history of OK at age 33 and has a stent. She takes aspirin and Plavix. She is not sure why she had an OK at age 33. She had a stress test which was unremarkable earlier this year. She also reports her sugars have been high over the last 3 days. She says she is taking her medications as prescribed, but she is on a new regimen for the last 2 weeks. She said her sugars were 600 prior to arrival. She also complains of her vision in her left eye going black about an hour prior to arrival. Her vision has improved since, but she believes she had a syncopal episode and that she hit her head on her [employer] cabinet. Patient denies any history of PE or aortic disease. No recent travel, leg swelling, recent surgeries, hormone use, or smoking. Physical Examination: Afebrile and vital signs unremarkable. Left maxillary region is tender to palpation but otherwise HEENT exam is unremarkable. Left lateral neck is tender, but spine is nontender. Heart regular rate and rhythm. Lungs clear. Abdomen soft. Extremities nontender with no edema. Pulses strong and equal. Skin is normal in color. Calves soft and supple. Test Results: EKG showed sinus rhythm at a rate of 89. Unchanged. CBC normal. Sodium 135 and glucose 239. Coags normal. Troponin normal. Ketones normal. test negative. Chest x-ray normal. CT head, face, neck normal. Emergency Department Course and Treatment: Patient presents with multiple symptoms. I am unsure how to relate all of these together. Her sugars were not as high as originally thought. They were 239. I suspect they are much better after 2 L of fluid. She was monitored here. She received morphine and Phenergan. Her pain improved. She had no further neurologic symptoms. Patient had a stress test earlier this year which was unremarkable. I do believe she should have a repeat troponin. I am also concerned she is a vasculopath and may have had a TIA with the visual cuts. She had no other neurologic findings. She cannot receive IV contrast secondary to an allergy, but I believe she would benefit from MRI/MRA. I spoke with the hospitalist who will evaluate for admission. Treatment Plan: Above Disposition: Admission Impression: 1. Syncope 2. Vision changes 2. Chest pain This note was generated with path intelligence dictation software. It may contain incorrect words, spelling, and punctuation that were not noted in review of the chart prior to signing ED Disposition - Plan for ED Patient: Referrals: Alka Pringle [Primary Care Provider] -
--- NOTE | 2018-12-04 20:31 | EKG12_ITS ---
Test Reason : CP ADMISSION Blood Pressure : / mmHG Vent. Rate : 082 BPM Atrial Rate : 082 BPM P-R Int : 172 ms QRS Dur : 100 ms QT Int : 434 ms P-R-T Axes : 047 -10 041 degrees QTc Int : 507 ms Normal sinus rhythm Low voltage QRS ( Limb leads) Possible Anterolateral infarct , age undetermined Prolonged QT Abnormal ECG Confirmed by CECILIA MITCHELL, YUNIOR ([id number]), editor greeting card ELIZABETH RODRIGUEZ ([id number]) on 12/06/2018 9:05:52 AM Referred By: Uriah Nicole Confirmed By:YUNIOR BROOKS MD
--- NOTE | 2018-12-04 22:40 | NURSING ---
Informed Dr. Nicole that pt. has Iodine contrast allergy and wanted premedication for test. Dr. Nicole stated MRA contrast is not iodine based. Pt. agrees to dye use without premedication after this nurse educated her regarding contrast per Dr. Nicole's instructions.
[2018-12-04] MEDS: Atorvastatin Calcium 80 MG Tablet PO (22:57)
[2018-12-04] MEDS: Gabapentin 600 MG Tablet 1200 MG PO (22:57)
[2018-12-04] MEDS: Ranolazine 500 MG Tablet 1000 MG PO (22:57)
[2018-12-04] MEDS: Metoprolol Tartrate 25 MG Tablet 12.5 MG PO (22:58)
[2018-12-04] MEDS: Magnesium Oxide 400 MG Tablet PO (22:58)
[2018-12-04] MEDS: Sertraline 100 MG Tablet PO (22:59)
[2018-12-04] MEDS: Clopidogrel Bisulfate 75 MG Tablet PO (23:00)
[2018-12-04] MEDS: Insulin Lispro 100 UNIT/ML INSULN.PEN SC (23:12)
[2018-12-04 23:51] LABS: Bedside Glucose 198 mg/dL (70-110)
[2018-12-05] VITALS (16 sets, daily range): BP systolic 94–137; BP diastolic 53–87; PULSE 62–92; RESP 14–20; TEMP 36.4–36.9; O2SAT 94–97
[2018-12-05 06:26] LABS: Cholesterol 126 mg/dL (200); High Density Lipoprotein 36 mg/dL; Triglycerides 202 mg/dL; Very Low Density Lipoprotein 40 mg/dL (5-40)
--- NOTE | 2018-12-05 06:42 | MRI_ITS ---
STUDY: MRA NECK WITH AND WITHOUT CONTRAST REASON FOR EXAM: Female, 38 years old. Syncope TECHNIQUE: 3-D [id number] (TOF) imaging was performed in an 1.5 T MRI scanner. 18 IV Dotarem was administered for the contrast enhanced images. COMPARISON: January 22, 2017. FINDINGS: RIGHT CAROTID ARTERIES: Normal right common carotid artery (CCA). Normal right common carotid bulb. Normal origin of the right internal carotid (ICA) artery without a hemodynamically significant stenosis. Normal visualized cervical portion of the right internal carotid artery. Normal origin of the right external carotid artery (ECA). LEFT CAROTID ARTERIES: Normal left common carotid artery (CCA). Normal left common carotid bulb. Normal origin of the left internal carotid (ICA) artery without a hemodynamically significant stenosis. Normal visualized cervical portion of the left internal carotid artery. Normal origin of the left external carotid artery (ECA). VERTEBRAL ARTERIES: Normal antegrade flow within the bilateral vertebral artery without a hemodynamically significant stenosis. No significant change since prior exam MRI/MRA Neck WITH and W/O Contrast IMPRESSION: Normal bilateral cervical carotid and vertebral arteries. Electronically Signed: Jonathan James MD at 16:11 EDT , Service support ,
--- NOTE | 2018-12-05 06:52 | ECHOCS_ITS ---
Reason For Study: CHEST PAIN Procedure This was a 2D Doppler, Color Flow transthoracic echocardiogram. Contrast injection was performed. Exam performed in department. Left Ventricle Normal size and thickness. The estimated ejection fraction is 55 %. Normal diastology for age. Mid- Anterior : Mildly hypokinetic. Mid-anteroseptal : Mildly hypokinetic. Right Ventricle Normal size and thickness. Normal systolic function. Atria Normal left atrium. Normal right atrium. Normal atrial septum. Mitral Valve The mitral valve is structurally normal. No prolapse or stenosis seen. Tricuspid Valve Normal tricuspid valve. Trivial tricuspid valve insufficiency. Right ventricular systolic pressure estimated to be 32 mmHg. Aortic Valve Trisinus/trileaflet aortic valve. Pulmonic Valve Normal pulmonic valve. Great Vessels Normal aortic root. Normal arch. Normal inferior vena cava. Inferior vena cava collapse with sniff. Pericardium/Pleural No pericardial effusion. Medication Diluted definity 2.0ml given slow IV push to enhance endocardial definition. MMode/2D Measurements & Calculations LVIDd: 5.2 cm IVSd: 0.88 cm Ao root diam: 3.2 cm LVIDs: 3.7 cm LVPWd: 0.82 cm RVDd: 2.7 cm FS: 30.1 % LAV(MOD-bp): 70.5 ml LA A4 area: 22.2 cm2 LA dimension(2D): 3.8 cm LAV(MOD-bp) Indexed: 34.9 ml/m2 LAV(MOD-sp2): 66.5 ml LAV(MOD-sp4): 74.0 ml RA A4 area: 13.4 cm2 Time Measurements MV dec time: 0.14 sec Doppler Measurements & Calculations MV E max robinson: 85.0 cm/sec Lat Peak E' Robinson: 10.7 cm/sec Med Peak E' Robinson: 7.7 cm/sec MV A max robinson: 75.9 cm/sec E/E' lat: 7.9 E/E' med: 11.0 MV E/A: 1.1 Ao V2 max: 99.5 cm/sec LV V1 max: 87.8 cm/sec PA V2 max: 84.6 cm/sec Ao max P.0 mmHg LV V1 max P.1 mmHg TR max robinson: 259.9 cm/sec TR max P.0 mmHg Interpretation Summary The estimated ejection fraction is 55 %. Normal diastology for age. Trivial tricuspid valve insufficiency. Right ventricular systolic pressure estimated to be 32 mmHg. Mid-Anterior : Mildly hypokinetic Mid-anteroseptal : Mildly hypokinetic The study was technically difficult. Contrast injection was performed. Ordering Physician: Uriah Nicole Referring Physician: Alka Pringle Performed By: Maria A Borja RDCS, RVT
--- NOTE | 2018-12-05 06:53 | STEWCON_ITS ---
Reason For Study: Chest Pain Stress Results Protocol: Dobutamine Stress Echo Maximum Predicted HR: 183 bpm Target HR: 156 bpm % Maximum Predicted HR: 81 % Heart Stage Duration Rate BP Comment (mm:ss) (bpm) Baseline 98 125/82Mild Chest Pain; Diluted Definity 7 ML Total Given DSE 10 MCG 3:03 75 134/89Mild Chest Pain DSE 20 MCG 3:09 91 155/86Mild Chest Pain DSE 30 Atropine 0.25 MG IVP; 9/10 Chest Pain; Moderate Right Flank Pain MCG 3:03 114 163/99Radiating to Mid Back DSE 40 MCG 4:22 148 169/84Atropine 0.75 MG IVP; 9/10 Chest Pain; Severe Right Flank Pain Mild Chest Pain; Moderate Flank Pain; Adenosine 6 mg Given IVP at Recovery 92 [id number]/[id number]; Adenosine 12 MG Given at 0935; Metoprolol 5 MG Given IVP at 0940; See Written Progress Notes Stress Duration: 13:37 mm:ss Maximum Stress HR: 148 bpm METS: 1 Baseline Echocardiogram Findings The estimated ejection fraction is 45 %. Stress Echo Wall motion Data Resting WM Intermediate WM Stress WM Resting Wall Motion Wall Motion Stress Mid-Anterior : Hypokinetic. No regional wall motion Basal anteroseptal: Hypokinetic. abnormalities noted. Mid-anteroseptal : Hypokinetic. EKG Data The baseline ECG displays normal sinus rhythm. The patient was titrated from 10 mcg to a maximum of 40 mcg of dobutamine during the stress. The maximum heart rate attained was 148 beats per minute. This was 85% of maximum predicted heart rate. During dobutamine infusion, there were no ST or T wave changes noted to suggest ischemia. No arrhythmias noted. Interpretation Summary The estimated ejection fraction is 45 %. Abnormal, adequate, dobutamine echocardiogram. Positive for ischemia by chest pain criteria. Patient developed 9 out of 10 chest pain at peak infusion. Patient at baseline anteroseptal hypokinesis which appeared to contract during sequential dobutamine infusion. No arrhythmias noted. No EKG changes noted. Appropriate blood pressure response to dobutamine. Test terminated due to attainment target heart rate and chest pain. Patient appeared to have atrial flutter with 2-1 conduction however 6 mg followed by 12 mg of adenosine confirmed that this was sinus tachycardia and not atrial flutter. Final LVEF of 55%. No complications. The study was technically difficult. Contrast injection was performed. Ordering Physician: Uriah Nicole Referring Physician: Jc Luna Performed By: Elisa Mcfadden RDCS, RVT
[2018-12-05 07:01] LABS: Bedside Glucose 239 mg/dL (70-110)
[2018-12-05] MEDS: Aspirin E.C. 81 MG Tablet PO (07:32)
[2018-12-05 07:46] LABS: Bedside Glucose 272 mg/dL (70-110)
--- NOTE | 2018-12-05 08:00 | MRI_ITS ---
STUDY: MRA OF THE HEAD WITHOUT CONTRAST REASON FOR EXAM: Female, 38 years old. Vision loss in left eye TECHNIQUE: 3-D fsqa-ti-mabeiy (TOF) imaging was performed with MIPs. The study was performed unenhanced. COMPARISON: January 22, 2017 FINDINGS: Normal bilateral petrous carotid arteries. Normal right cavernous carotid artery with a normal supraclinoid bifurcation. Normal left cavernous carotid artery with a normal supraclinoid bifurcation. Normal right A1 segments of the anterior cerebral artery. Normal left A1 segments of the anterior cerebral artery. Anterior communicating artery not visualized consistent with normal variant Normal bilateral A2 segments of the anterior cerebral arteries. Normal right M1 and M2 segments of the middle cerebral arteries, with a normal M1 bifurcation. Normal left M1 and M2 segments of the middle cerebral arteries, with a normal M1 bifurcation. Posterior communicating arteries are not visualized consistent with normal variant.). Normal bilateral vertebral arteries. Normal basilar artery with a normal basilar bifurcation. The visualized bilateral superior cerebellar (SCA) arteries are normal. Normal bilateral P1, P2 and visualized P3 segments of the posterior cerebral arteries. There is no demonstrated aneurysm of the [place]. There is no major vessel occlusion or hemodynamically significant stenosis. There is no demonstrated abnormality of the visualized brain. No significant change since prior exam MRI/MRA Head ONLY without Contrast IMPRESSION: Normal MRA of the head Electronically Signed: Jonathan James MD at 16:01 EDT , Service support ,
--- NOTE | 2018-12-05 08:00 | MRI_ITS ---
STUDY: MRI BRAIN WITHOUT CONTRAST REASON FOR EXAM: Female, 38 years old. CVA vision loss in left eye TECHNIQUE: Standardized multiplanar fat and water weighted pulse sequences were obtained. COMPARISON: January 22, 2017 FINDINGS: Normal size of the ventricles and extra-axial spaces for the patient's age. Normal white matter tracts of the supratentorial brain. Normal bilateral basal ganglia. Normal thalami. There is no extra-axial fluid accumulation. Normal flow voids within the major intracranial circulation suggesting patency by spin echo criteria. Normal sella turcica, pituitary gland, infundibular stalk, optic chiasm and hypothalamus. Normal tectal plate and pineal gland. Normal midbrain, shannon and medulla. Normal cerebellum. Normal basal cisterns. Normal bilateral temporal bones. Normal bilateral internal auditory canals. No demonstrated orbital abnormality, within the constraints of a routine brain study. Normal visualized paranasal sinuses. Normal calvarium and skull base. Normal visualized soft tissue structures. Normal visualized upper cervical spine. No significant change since prior study MRI/Brain without Contrast IMPRESSION: Normal unenhanced MRI of the brain. Electronically Signed: Jonathan James MD at 15:59 EDT , Service support ,
--- NOTE | 2018-12-05 09:02 | CON.PCM_ITS ---
Problem List (1) Chest pain Status: Acute (2) Ischemic cardiomyopathy Status: Chronic (3) History of coronary artery stent placement Status: Chronic Comment: [id number] and Mid LAD 01/2014, PCI-INOCENCIA-Mid RCA 02/2014 (4) Essential (primary) hypertension Status: Chronic (5) Hyperlipidemia Status: Chronic Qualifiers: Reason for Consult Date of Consultation: 12/05/18 Reason for Consultation: Chest pain in the setting of past medical history of CAD, PCI, ICM, HTN, and HLD. History of Present Illness: The patient is a 38 year old F with past medical history of coronary artery disease status post drug-eluting stent to proximal mid LAD January 2014 and mid RCA occluded stent placement in February 2014. She also has a history of resolved ischemic cardiomyopathy, hypertension, and hyperlipidemia. She pr esented to the emergency department on 12/04/2018 with headache and nausea. Her blood sugar was noted to be 600 prior to arrival. Her EKG showed sinus rhythm without acute ST changes. Her troponin was negative. Due to her vision changes it was recommend that she undergo a MRI/MRA. She was admitted for further evaluation. Cardiology was consulted for further evaluation. Patient acknowledges chronic chest pain and shortness of breath. However, she states that these symptoms have been worsening over the last 2 to 3 weeks. She states that her chest pain occurred while at rest. This continued throughout the night. The following day she acknowledges episode of syncope going from a sitting to standing position. After this she evaluated her blood sugar and noted to be in the 600s. Because of her worsening symptoms and syncopal episode, she presented to the emergency department. Past Medical History Allergies/Adverse Reactions: Allergies Iodinated Contrast Media [Iodinated Contrast Media - IV Dye] Allergy (Verified 07/03/18 13:54) Hives Penicillins Allergy (Verified 07/03/18 13:54) Rash Sulfa (Sulfonamide Antibiotics) Allergy (Verified 07/03/18 13:54) Hives Beta-Blockers (Beta-Adrenergic Bloc Adverse Reaction (Verified 07/03/18 13:54) Low blood pressure metformin Adverse Reaction (Verified 07/03/18 13:54) Upset Stomach nitroglycerin IV Allergy (Uncoded 06/25/18 16:10) DROPS HR nitro drips per pt will drop bp quick and will bottom out Home Medications: Ambulatory Orders Medication Instructions Recorded Aspirin [Aspirin, Baby] 81 mg PO DAILY 03/04/15 Sertraline HCl [Zoloft] 100 mg PO DAILY 11/25/15 Nitroglycerin (INPATIENT USE) 0.4 mg SUBLINGUAL Q5M PRN #1 bottle 11/26/15 [Nitrostat] isosorbide mononitrate ER 30 mg 30 mg PO DAILY #90 tab 11/07/17 tablet,extended release 24 hr Insulin Lispro [Humalog KwikPen] 26 units SQ TIDCM 05/02/18 Insulin Lispro [Humalog KwikPen] See Protocol SQ TIDCM 05/02/18 Metoprolol Tartrate [Lopressor 12.5 mg PO BID #60 tab 05/03/18 (beta zita)] Gabapentin [Neurontin] 300 mg PO DAILY 06/16/18 Ondansetron [Zofran Odt] 4 mg PO Q8H PRN PRN #10 tab 06/16/18 ranolazine ER 1,000 mg 1,000 mg PO BID #60 tab 08/05/18 tablet,extended release,12 hr atorvastatin 80 mg tablet 80 mg PO QHS #30 tab 09/05/18 clopidogrel 75 mg tablet 75 mg PO DAILY #90 tab 09/05/18 magnesium oxide 400 mg (241.3 mg 400 mg PO BID #60 tab 10/15/18 magnesium) tablet Gabapentin [Neurontin] 1,200 mg PO QHS 12/04/18 Insulin Glargine,Hum.rec.anlog 35 units SQ BID 12/04/18 [Basaglar Kwikpen U-100] Past Medical History (Chronic Problems): Chronic Problems (Last Reviewed 12/05/18 @ 00:55 by Uriah Nicole MD) Chronic systolic (congestive) heart failure (Chronic) Ischemic cardiomyopathy (Chronic) Old anterior wall myocardial infarction (Chronic) History of coronary artery stent placement (Chronic 02/2014) [id number] and Mid LAD 01/2014, PCI-INOCENCIA-Mid RCA 02/2014 Essential (primary) hypertension (Chronic) Hyperlipidemia (Chronic) Surgical History: - - PCI x2, bilateral tubal ligation, back surgery with L4-L5 rods and screws in place, tonsillectomy. 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: Anxiety, Depression [employer] History: No pertinent [employer] history - *Family History Paternal Family History: Family History (Last Reviewed 12/05/18 @ 00:57 by Uriah Nicole MD) Father Cancer Brother Diabetes Sister Diabetes Heart disease Hypertension High cholesterol Mother Heart disease High cholesterol Hypertension CVA (cerebral vascular accident) Grandmother Heart disease High cholesterol Hypertension Grandfather Heart disease High cholesterol Hypertension CVA (cerebral vascular accident) History Items: Heart Disease Maternal Family History: Family History (Last Reviewed 12/05/18 @ 00:57 by Uriah Nicole MD) Father Cancer Brother Diabetes Sister Diabetes Heart disease Hypertension High cholesterol Mother Heart disease High cholesterol Hypertension CVA (cerebral vascular accident) Grandmother Heart disease High cholesterol Hypertension Grandfather Heart disease High cholesterol Hypertension CVA (cerebral vascular accident) History Items: Stroke Lives: With Family Smoking Status: Former smoker Review of Systems - Review of Systems General: Reports: Fatigue, Chills. Denies: Fever HEENT: Reports: Vision Change - Occurs with head movement and currently resolved Cardiovascular: Reports: Chest Discomfort, Chest Discomfort at Rest, Chest Discomfort with Exertion, Shortness of Breath, Shortness of Breath with Exertion, Peripheral Edema, Lightheadedness, Dizziness, Near Syncope, Syncope. Denies: Shortness of Breath at Rest, Orthopnea, PND Respiratory: Denies: Cough Muscoloskeletal: Denies: Myalgias Skin: Reports: Rash Neurological: Reports: Dizziness Objective: Vital Signs Temp Pulse Resp BP Pulse Ox 98.1 F 84 18 116/74 96 12/05/18 07:36 12/05/18 07:36 12/05/18 07:36 12/05/18 07:36 12/05/18 07:36 Oxygen Flow Rate (L/min) 2 Oxygen Delivery Method Room Air Weight: 200 lb 3.2 oz Body Mass Index (BMI) 31.4 Finger Stick Blood Glucose 202 Orthostatic Vital Signs Start: 12/04/18 21:33 Freq: q24h Status: Active Protocol: Activity Type Activity Date Activity User E-Sign Co-Sign Detail Recorded Client Recorded Date Recorded By Document 12/04/18 21:33 PAL [id number] 12/04/18 21:39 PAL 12/04/18 21:33 Orthostatic Vitals Standing -Blood Pressure (90/60-120/80) 104/75 -Extremity Use Left Arm -Pulse Rate (60-100) 88 Sitting -Blood Pressure (90/60-120/80) 111/72 -Extremity Use Left Arm -Pulse Rate (60-100) 82 Lying -Blood Pressure (90/60-120/80) 116/75 -Extremity Use Left Arm -Pulse Rate (60-100) 83 Intake and Output for Last 24 Hours 12/03/18 12/04/18 12/05/18 23:59 23:59 23:59 Intake Total 200 / 200 100 / 100 Output Total 0 / 0 Balance 200 / 200 100 / 100 General: Healthy Appearing, Awake, Alert, Oriented x 3, Cooperative HEENT: Atraumatic Oral: No Mucosal Lesions Neck: No JVD Lungs: Clear to auscultation Cardiovascular: Regular Rhythm, Normal S1, Normal S2, No Murmurs, No Rubs, No Gallops Vascular: No Carotid Bruits Abdomen: Soft Extremities: No Cyanosis, No Clubbing, No edema, Normal Capillary Refill Musculoskeletal: No Erythema Skin: No Rashes Neurological: No Focal Motor or Sensory Deficit Psych/Mental Status: Appropriate 12/04/18 17:30: WBC 6.9, RBC 4.71, Hgb 13.8, Hct 40.6, MCV 86.2, MCH 29.3, MCHC 34.0, Plt Count 252, MPV 10.1, Immature Gran % (Auto) 0.300, Neut % (Auto) 63.2, Lymph % (Auto) 27.9, Price % (Auto) 6.1, Eos % (Auto) 1.9, Baso % (Auto) 0.6, Absolute Neuts (auto) 4.3, Nucleated RBC % 0 12/04/18 17:30: Sodium 135 L, Potassium 3.6, Chloride 101, Carbon Dioxide 29.0, Anion Gap 5, BUN 12, Creatinine 0.71, Est GFR (MDRD) Af Amer 119, Est GFR (MDRD) Non-Af 98, BUN/Creatinine Ratio 16.9, Glucose 239 H, Calcium 9.2, Troponin I < 0.015 12/04/18 17:30: PT 12.1, INR 0.9, APTT 24.6 12/04/18 20:55: Troponin I < 0.015 12/04/18 23:10: Troponin I < 0.015 12/05/18 05:20: Triglycerides 202 H, Cholesterol 126, LDL Cholesterol 50, VLDL Cholesterol 40, HDL Cholesterol 36 L Rhythm: EKG: ECHO: 06/21/2017 Interpretation Summary The estimated ejection fraction is 50 %. Anterio-Basal: Mildly hypokinetic Mid-Anterior : Mildly hypokinetic Mid-anteroseptal : Mildly hypokinetic Unable to estimate RV systolic pressure/pulmonary artery pressure due to technically difficult study. Trivial pericardial effusion. There are no echocardiographic indications of cardiac tamponade. There is no comparison study available. The study was technically difficult. Contrast injection was performed. Stress Test: 06/21/2017 Interpretation Summary The study was technically difficult. There is no comparison study available. Contrast injection was performed. Normal, submaximal, dobutamine echocardiogram. Negative for ischemia by EKG and echocardiographic anterior. Baseline moderate to severe anteroseptal wall hypokinesis due to previous myocardial infarction with minimal improvement during infusion. All other camargo appeared to augment normally at peak infusion. No anginal symptoms noted. Appropriate blood pressure response to dobutamine. Test terminated due to maximum dobutamine and atropine dosages. Decreased sensitivity due to poor echo windows requiring contrast agent and failure to reach target heart rate. Patient tolerated procedure well. No complications. Cardiac Cath: 06/22/2017 CORONARY ANGIOGRAPHY DOMINANCE: Right Dominant LEFT HEART ASSESSMENT Left Ventricular Ejection Fraction: by LV Gram 45-50 % Anterior Hypokinesis - Moderate Normal Left Ventricular End Diastolic Pressure Depressed Left Ventricular systolic function RIGHT HEART ASSESSMENT Thermal CO: 4.62 Thermal CI: 2.21 Kumar CO: 5.32 Kumar CI: 2.55 PW: 11/8 9 PA: 22/8 15 RV: 24/2 8 RA: 5/6 4 PVR: 104 SVR: 1351 Right Heart pressures - normal LEFT MAIN: 20 % Stenosis LEFT ANTERIOR DECENDING ARTERY: MID LAD: Previously placed stent is patent DIAGONAL 1: Proximal - 50 % Stenosis DIAGONAL 2: Ostial - 80 % Stenosis, very small, no change since previous cath. CIRCUMFLEX ARTERY: Mild luminal irregularities less than 30% RIGHT CORONARY ARTERY: MID RCA: Previously placed stent is patent ACUTE MARGINAL: 80 ostial; too small for PCI. % Stenosis PCI: CT Surgery: Holter monitor: EPS: PPM: CXR: Chest CT Scan: Assessment/Plan 1. Chest pain Patient's chest pain is concerning for progressive coronary artery disease. Given her previous history of stenting to her proximal and mid LAD with a drug- eluting stent in January 2014 and drug-eluting stent placement to her mid RCA in February 2014, she will proceed with stress echocardiogram to further evaluate coronary artery disease component. Her troponin has remained negative x3. Her EKG did not reveal any acute ST changes. Based on results of her stress echocardiogram further recommendation will be made. Her last heart catheterization in May 2017 showed previous placed mid LAD stent as patent, proximal diagonal 1 with 50% stenosis, ostial diagonal 2 with 80% stenosis that was considered be very small and unchanged from previous heart catheterization, circumflex artery with mild luminal irregularities less than 30%, mid RCA previously placed stent as patent, and acute marginal with 80% stenosis that was too small for PCI. Her echocardiogram at that same time in May 2017 showed an ejection fraction of 50% and mildly hypokinetic anterio-basal, mid-anterior, and mid anteroseptal camargo. In the interim, she will continue with aspirin, Plavix, metoprolol, and atorvastatin. She will continue with isosorbide and Ranexa as well. Depending on results and blood pressure readings, her isosorbide may be able to be adjusted to help with chest pain. 2. Ischemic cardiomyopathy As noted above, her most recent echocardiogram showed ejection fraction of 50%. She does not appear to be in a fluid volume overload state based on exam. She will continue with low-dose beta-zita therapy. It is unclear if she has trialed JOVITA inhibitor or ARB medication previously. At this time, we will hold off on adding such medication due to lower blood pressure readings. We will continue to monitor her fluid status. 3. Hypertension Her blood pressure appears well controlled. She will continue with current medical therapy. We will continue to monitor. 4. Hyperlipidemia Her lipid panel from 12/05/2018 showed cholesterol: 125, HDL: 36, LDL: 50, and triglycerides: 202. She will continue with current high-dose statin medication continue with lifestyle modifications for elevated triglyceride levels. Her LDL and total cholesterol are at goal. 5. Obstructive sleep apnea Patient acknowledges multiple symptoms consistent with obstructive sleep apnea. This includes fatigue, snoring, witnessed apnea, waking gasping for air, hypersomnolence during the day, and obesity. It was recommended to consider a polysomnogram on an outpatient basis. 6. Vision change Is very reasonable given her vision change to proceed with MRI/MRA. Results of this test will also help guide cardiac evaluation. Her blood sugars will also need to be monitored closely as this may be a precipitating factor. Her last hemoglobin A1c from 05/02/2018 was noted be 12.7%. Thank you for allowing us to participate in the patients plan of care, if you have any questions please do not hesitate to call. This note was generated using a voice recognition system and there may be incorrect words, spelling or punctuation that were not noted when reviewing the office note prior to saving.
[2018-12-05] MEDS: Magnesium Oxide 400 MG Tablet PO ×2 (10:18→22:36)
[2018-12-05] MEDS: Ranolazine 500 MG Tablet 1000 MG PO ×2 (10:18→22:36)
[2018-12-05] MEDS: Acetaminophen 325 MG Tablet 650 MG PO (10:19)
[2018-12-05] MEDS: Gabapentin 300 MG Capsule PO (10:19)
[2018-12-05] MEDS: Isosorbide Mononitrate 30 MG Tablet PO (10:20)
[2018-12-05] MEDS: Metoprolol Tartrate 25 MG Tablet 12.5 MG PO (10:21)
--- NOTE | 2018-12-05 10:31 | CASEMGMT ---
As per admitting area coordinator, pt does not have POA, and has LW but unable to bring it in. Pt declined additional information on LW/POA. MARIAM Griffin
[2018-12-05] MEDS: Insulin Lispro 100 UNIT/ML INSULN.PEN 26 UNIT SC ×2 (12:25→16:16)
[2018-12-05 13:06] LABS: Bedside Glucose 250 mg/dL (70-110)
[2018-12-05] MEDS: Clopidogrel Bisulfate 75 MG Tablet PO (14:20)
[2018-12-05] MEDS: DiphenhydrAMINE 25 MG Capsule 50 MG PO (14:21)
[2018-12-05] MEDS: MethylPREDNISolone 125 MG/2 ML Vial IV (14:21)
[2018-12-05] MEDS: 0.9% NaCl Peripheral Flush Adult/Peds IV ×2 (14:21→22:44)
--- NOTE | 2018-12-05 15:33 | PN_ITS ---
Patient Problems: Active and Suspected Problems (Last Reviewed 12/05/18 @ 00:55 by Uriah Nicole MD) Chest pain (Acute) Subjective: Patient was seen and examined. She underwent Stress ECHO and results were positive. She also had tachycardia and went into SVT twice and was given adenosine. She still had chest discomfort, 3 out of 10. No dizziness or palpitations. Objective: Physical Exam General: Alert, Oriented x3, Cooperative HEENT: Atraumatic, PERRLA, EOMI, Normocephalic Neck: Supple, No JVD, Negative Carotid Bruits Lungs: Clear to auscultation, Normal air movement Cardiovascular: Regular rate, No murmurs Abdomen: Bowel Sounds Present, Soft, Non Tender Extremities: No edema, Capillary Refill Less than 3 Seconds Skin: No rashes, No breakdown Musculoskeletal: No Tenderness to Palpation of Joints or Extremities Neurological: Cranial nerves II-XII grossly intact, Neuro grossly intact, Muscle tone normal, - - No dysmetria Psych/Mental Status: Normal Affect, Appropriate Vitals/I&O's: Vital Signs Temp Pulse Resp BP Pulse Ox 97.8 F 62 14 97/60 97 12/05/18 14:09 12/05/18 14:09 12/05/18 14:09 12/05/18 14:09 12/05/18 14:09 Oxygen Flow Rate (L/min) 2 Oxygen Delivery Method Room Air Weight: 90.809 kg Body Mass Index (BMI) 31.4 Finger Stick Blood Glucose 202 Orthostatic Vital Signs Start: 12/04/18 21:33 Freq: q24h Status: Active Protocol: Activity Type Activity Date Activity User E-Sign Co-Sign Detail Recorded Client Recorded Date Recorded By Document 12/04/18 21:33 PAL [id number] 12/04/18 21:39 PAL 12/04/18 21:33 Orthostatic Vitals Standing -Blood Pressure (90/60-120/80) 104/75 -Extremity Use Left Arm -Pulse Rate (60-100) 88 Sitting -Blood Pressure (90/60-120/80) 111/72 -Extremity Use Left Arm -Pulse Rate (60-100) 82 Lying -Blood Pressure (90/60-120/80) 116/75 -Extremity Use Left Arm -Pulse Rate (60-100) 83 Intake and Output for Last 24 Hours 0812/04/18 12/05/18 23:59 23:59 23:59 Intake Total 200 / 200 220 / 220 Output Total 0 / 0 Balance 200 / 200 220 / 220 Laboratory Results 12/04/18 17:30: WBC 6.9, RBC 4.71, Hgb 13.8, Hct 40.6, MCV 86.2, MCH 29.3, MCHC 34.0, RDW Std Deviation 38.9, RDW Coeff of Mariana 12.4, Plt Count 252, MPV 10.1, Immature Gran % (Auto) 0.300, Neut % (Auto) 63.2, Lymph % (Auto) 27.9, Larue % (Auto) 6.1, Eos % (Auto) 1.9, Baso % (Auto) 0.6, Absolute Neuts (auto) 4.3, Absolute Lymphs (auto) 1.92, Nucleated RBC % 0 12/04/18 17:30: Sodium 135 L, Potassium 3.6, Chloride 101, Carbon Dioxide 29.0, Anion Gap 5, BUN 12, Creatinine 0.71, Estim Creat Clear Calc 105.50, Est GFR (MDRD) Af Amer 119, Est GFR (MDRD) Non-Af 98, BUN/Creatinine Ratio 16.9, Glucose 239 H, Calcium 9.2, Troponin I < 0.015 12/04/18 17:30: PT 12.1, INR 0.9, APTT 24.6 12/04/18 17:30: Acetone Level NEGATIVE 12/04/18 18:00: Serum , Qual NEGATIVE 12/04/18 20:55: Troponin I < 0.015 12/04/18 23:10: Troponin I < 0.015 12/04/18 23:10: POC Glucose 198 H 12/05/18 03:39: POC Glucose 239 H 12/05/18 05:20: Triglycerides 202 H, Cholesterol 126, LDL Cholesterol 50, VLDL Cholesterol 40, HDL Cholesterol 36 L 12/05/18 07:31: POC Glucose 272 H 12/05/18 12:17: POC Glucose 250 H Current Medications Acetaminophen (Tylenol) 650 mg PO Q6H PRN PRN PRN Reason: Mild pain 1-3/Temp > 100.7 F Last Admin: 12/05/18 10:19 Dose: 650 mg Documented by: Aspirin (Ecotrin) 81 mg PO DAILY@0800 [facility] Last Admin: 12/05/18 07:32 Dose: 81 mg Documented by: Atorvastatin Calcium (Lipitor) 80 mg PO QHS [facility] Last Admin: 12/04/18 22:57 Dose: 80 mg Documented by: Clopidogrel Bisulfate (Plavix) 75 mg PO DAILY@2200 [facility] Last Admin: 12/05/18 14:20 Dose: 75 mg Documented by: Dextrose (D50w Syringe) 0 gm IV X1 PRN; Protocol PRN Reason: Hypoglycemia Diphenhydramine HCl (Benadryl) 50 mg PO X1 ONE Stop: 12/06/18 05:01 Enoxaparin Sodium (Lovenox) 40 mg SC DAILY@1000 [facility] Last Admin: 12/05/18 12:27 Dose: Not Given Documented by: Famotidine (Pepcid) 20 mg PO BID [facility] Gabapentin (Neurontin) 300 mg PO DAILY [facility] Last Admin: 12/05/18 10:19 Dose: 300 mg Documented by: Gabapentin (Neurontin) 1,200 mg PO QHS [facility] Last Admin: 12/04/18 22:57 Dose: 1,200 mg Documented by: Glucagon () 1 mg IM .X1 PRN PRN Reason: Hypoglycemia Sodium Chloride () 1,000 mls @ 0 mls/hr IV .Q0M [facility] Sodium Chloride () 1,000 mls @ 15 mls/hr IV .Q48H [facility] Insulin Glargine (Lantus (Bk)) 35 units SC BID [facility] Last Admin: 12/05/18 12:25 Dose: 35 units Documented by: Insulin Human Lispro (Humalog Kwikpen ([facility])) 26 unit SC TIDCM [facility] Last Admin: 12/05/18 12:25 Dose: 26 units Documented by: Isosorbide Mononitrate (Imdur) 30 mg PO DAILY [facility] Last Admin: 12/05/18 10:20 Dose: 30 mg Documented by: Magnesium Oxide (Mag-Ox 400) 400 mg PO BID [facility] Last Admin: 12/05/18 10:18 Dose: 400 mg Documented by: Melatonin (Melatonin) 3 mg PO QHS PRN PRN PRN Reason: INSOMNIA Methylprednisolone (Solu-Medrol) 125 mg IV X1 ONE Stop: 12/06/18 05:01 Metoprolol Tartrate (Lopressor (Beta Lizbeth)) 25 mg PO BID [facility] Morphine Sulfate () 2 mg IV Q3H PRN PRN PRN Reason: Severe Pain (7-10/10) Nitroglycerin (Nitrostat) 0.4 mg SUBLINGUAL Q5M PRN PRN Reason: CARDIAC/CHEST PAIN Ondansetron HCl (Zofran) 4 mg IV Q8H PRN PRN PRN Reason: NAUSEA/VOMITING Ranolazine (Ranexa) 1,000 mg PO BID [facility] Last Admin: 12/05/18 10:18 Dose: 1,000 mg Documented by: Sertraline HCl (Zoloft) 100 mg PO DAILY@2200 [facility] Sodium Chloride () 10 - 40 ml IV UD PRN PRN Reason: SALINE FLUSH Last Admin: 12/05/18 14:21 Dose: 20 ml Documented by: Medical Necessity - Tobacco Use Smoking Status: Former smoker Assessment/Plan All Active Problems (Last Reviewed 12/05/18 @ 00:55 by Uriah Nicole MD) Chest pain (Acute) Lumbar stenosis (Resolved) Th38 year old F with PMHx of CAD status post stent, Type 2 DM admitted with 1 day history of severe substernal episodic chest pain; loss of vision of left eye; syncope and heaviness of tongue consistent with chest pain and syncope. 1. Chest pain, atypical, patient underwent stress echo that was positive evidence of mild anterior and inferior H/o CAD s/p stent, on aspirin, plavix, statin, metoprolol, isosorbide and Ranexa Cardiology consulted, will be going for cardiac cath in am 2. Syncope, unclear etiology, likely related to #1 3. Possible TIA, MRI of brain and MRA of head and neck is negative, continue on aspirin and statin. 4. Type 2 DM with neuropathy, sugars are fairly uncontrolled, continue on home regimen with blood sugar checks and insulin sliding scale 5. Depression, on Zoloft 6. DVT PPx- Lovenox Code Visit Inpatient E&M: 78782 Subs Hosp L2
[2018-12-05 16:36] LABS: Bedside Glucose 299 mg/dL (70-110)
[2018-12-05] MEDS: Sertraline 100 MG Tablet PO (22:35)
[2018-12-05] MEDS: Gabapentin 600 MG Tablet 1200 MG PO (22:36)
[2018-12-05] MEDS: Atorvastatin Calcium 80 MG Tablet PO (22:36)
[2018-12-05] MEDS: 0.9% Normal Saline 1,000 ML 15 ML IV (22:44)
[2018-12-05] MEDS: Famotidine 20 MG Tablet PO (22:56)
[2018-12-05] MEDS: Insulin Lispro 100 UNIT/ML INSULN.PEN SC (23:04)
[2018-12-05 23:11] LABS: Bedside Glucose 414 mg/dL (70-110)
[2018-12-06] VITALS (22 sets, daily range): BP systolic 82–128; BP diastolic 49–82; PULSE 76–90; RESP 12–20; TEMP 36.5–37.1; O2SAT 93–99
[2018-12-06] MEDS: Ondansetron 4 MG/2 ML Vial IV (00:53)
[2018-12-06] MEDS: Morphine 2 MG/ML Syringe IV ×2 (00:53→09:33)
[2018-12-06] MEDS: 0.9% NaCl Peripheral Flush Adult/Peds IV ×4 (00:54→22:10)
[2018-12-06] MEDS: Insulin Lispro 100 UNIT/ML INSULN.PEN SC ×4 (02:28→22:22)
[2018-12-06 02:51] LABS: Bedside Glucose 320 mg/dL (70-110)
[2018-12-06] MEDS: proMETHazine 25 MG Tablet 12.5 MG PO (03:40)
[2018-12-06] MEDS: Morphine 2 MG/ML Syringe 1 MG IV (03:40)
[2018-12-06 04:04] LABS: Bacteria 0 SEEN /hpf (None Seen); Mucous, Urine 0 SEEN /hpf (<or=2+)
[2018-12-06 04:08] LABS: Color, Urine Yellow (Yellow); Glucose, Dipstick 1000 mg/dl (Normal); Ketone-Dipstick 50 mg/dl (Negative); Leukocyte Esterase-Dipstick 500 /ul (Negative); Nitrite-Dipstick Negative (Negative); Occult Blood-Urine 25 /ul (Negative); Protein-Dipstick Negative (Negative); Specific Gravity, Urine 1.015 (1.002-1.030); Urine Bilirubin Dipstick Negative (Negative); Urine Clarity Sl. Cloudy (Clear); Urine Urobilinogen Normal (Normal)
[2018-12-06 04:14] LABS: Red Blood Cells-Urine 5-10 SEEN /hpf (0-5); Squamous Epithelial Cells - UA 10-25 SEEN /hpf (5-10); White Blood Cells >100 SEEN /hpf (0-5)
[2018-12-06 04:51] LABS: Anion Gap 11 (5-15); BUN 13 mg/dL (7-18); BUN/Creat Ratio 20.1 RATIO (10-20); Calcium,Total 8.7 mg/dL (8.5-10.1); Chloride 103 mmol/L (98-107); Creatinine, Serum 0.65 mg/dL (0.55-1.02); EST Glomerular Filtration Rate 109 mL/min (>60); Est Glom Filt Rate - Afr Amer 132 mL/min (>60); Estimated Creatinine Clearance 110.93 ml/min; Glucose 271 mg/dL (74-106); Potassium 3.8 mmol/L (3.5-5.1); Sodium Level 137 mmol/L (136-145)
--- NOTE | 2018-12-06 05:00 | EKG12_ITS ---
Test Reason : AM EKG Blood Pressure : / mmHG Vent. Rate : 083 BPM Atrial Rate : 083 BPM P-R Int : 172 ms QRS Dur : 102 ms QT Int : 412 ms P-R-T Axes : 052 -02 055 degrees QTc Int : 484 ms Normal sinus rhythm Cannot rule out Anterior infarct , age undetermined Abnormal ECG When compared with ECG of 04-DEC-2018 21:12, MANUAL COMPARISON REQUIRED, DATA IS UNCONFIRMED Confirmed by ELIS OLIVARES ([id number]), film and video editor MITA HAN ([id number]) on 12/12/2018 3:01:06 PM Referred By: Uriah Nicole Confirmed By:ELIS OLIVARES
[2018-12-06] MEDS: Clopidogrel Bisulfate 75 MG Tablet PO (06:29)
[2018-12-06] MEDS: Aspirin E.C. 81 MG Tablet PO (06:29)
[2018-12-06] MEDS: Famotidine 20 MG Tablet PO ×2 (06:30→22:23)
[2018-12-06] MEDS: Isosorbide Mononitrate 30 MG Tablet PO (06:40)
[2018-12-06] MEDS: Metoprolol Tartrate 25 MG Tablet PO ×2 (06:49→22:23)
--- NOTE | 2018-12-06 06:50 | NURSING ---
This nurse gave report to Bradford RN in lab instructor. Will give benadryl and solumedrol at this time per Bradford's request.
[2018-12-06] MEDS: DiphenhydrAMINE 25 MG Capsule 50 MG PO (06:56)
[2018-12-06] MEDS: MethylPREDNISolone 125 MG/2 ML Vial IV (06:58)
[2018-12-06 07:20] LABS: Bedside Glucose 231 mg/dL (70-110)
--- NOTE | 2018-12-06 08:17 | CL.D_ITS ---
Patient Name: LATA STONE Study Date: 12/06/2018 Performing: Jc Luna MD Ht: 66.92 inches 170 cm : 1980 Wt: 200.62 lbs 91 kg Age: 38 Gender: female BSA: 2.02 PROCEDURE(S) PERFORMED CP60-QDI/COR/LV CLINICAL PROFILE AND INDICATIONS Indications: ACS <= 24 hrs, Stable Known CAD Heart Failure: None Stress/Imaging Date: 12/05/2018Stress Echocardiogram: Positive Low Risk Angina Classification Anginal Classification w/in 2 Weeks: CCS III CAD Presentations: Unstable angina. Comorbidities/Risk Factors: Hypertension Dyslipidemia Prior CHF Prior PCI Diabetes Mellitus: Diabetes Therapy: Oral CONCLUSIONS Segmented LV systolic dysfunction- Moderate LVEF: by LV gram 45 % Elevated Left Ventricular End Diastolic Pressure Non obstructive coronary arteries Widely patent LAD and RCA stents RECOMMENDATIONS Risk factor modification Management as per referring Roller Printer CT scan to eval for possible kidney stone. Manual sheath removal. Continue Ranexa; pt unable to take beta blockers d/t allergy. DESCRIPTION OF PROCEDURE The patient arrived to the procedure lab. The risks and benefits of the procedure as well as a full d escription of our services here and current unavailability of surgical backup were fully explained to the patient and/or their significant other prior to the catheterization. The Timeout was completed, verifying the correct patient and procedure. The patient's procedural site was prepped and draped in the usual fashion. Local anesthetic was given subcutaneously to right groin region with Lidocaine 2%. Using a modified Seldinger technique, arterial access was obtained via the right femoral artery, a 4 Fr sheath was inserted Left Coronary Artery selective angiography was performed in multiple views us ing a 4 Fr. JL5 catheter. Right Coronary Artery selective angiography was then performed in multiple views using a 4 Fr. AR MOD 2 catheter. Left Ventriculography was performed in CABRERA projection using a 4 Fr. Pigtail catheter. LV to AO pullback pressures were then recorded.The arterial sheath was pulled and manual compression applied until hemostasis is achieved. CORONARY ANGIOGRAPHY DOMINANCE: Right Dominant LEFT HEART ASSESSMENT Left Ventricular Ejection Fraction: by LV Gram 45 % Anterior Hypokinesis - Moderate Depressed Left Ventricular systolic function LVEDP: 17 mmHg LEFT MAIN: 20 % Stenosis LEFT ANTERIOR DESCENDING ARTERY: PROX LAD: Previously placed stent is patent CIRCUMFLEX ARTERY: PROX CIRC: Mild luminal irregularities less than 30% RIGHT CORONARY ARTERY: MID RCA: Previously placed stent is patent COMPLICATIONS No Complications PROCEDURE MEDICATIONS Versed 1 mg IV Fentanyl 25 mcg IV Oxygen: 2 L/min via nasal cannula Solu-medrol 125 mg IV 12/06/2018 07:34:53 SUMMARY OF HEMODYNAMIC DATA Time AIR REST ECG 07:32:26 AO 108/80 (94) SA 07:51:56 LV 120/-3, 20 07:59:17 LV 120/-10, 17 07:59:23 LVp 121/-11, 17 07:59:30 AOp 114/69 (89) 07:59:35 Signed By Jc Luna MD On 12/06/2018 08:17:09 Jc Luna MD
[2018-12-06] MEDS: Ranolazine 500 MG Tablet 1000 MG PO ×2 (09:22→22:23)
[2018-12-06] MEDS: Gabapentin 300 MG Capsule PO (09:22)
[2018-12-06] MEDS: Magnesium Oxide 400 MG Tablet PO ×2 (09:22→22:24)
[2018-12-06] MEDS: Insulin Lispro 100 UNIT/ML INSULN.PEN 26 UNIT SC ×3 (09:24→17:16)
[2018-12-06 09:35] LABS: Bedside Glucose 254 mg/dL (70-110)
--- NOTE | 2018-12-06 10:22 | US_ITS ---
STUDY: RENAL ULTRASOUND - COMPLETE REASON FOR EXAM: Female, 38 years old. Nephrolithiasis TECHNIQUE: Ultrasound evaluation of the kidneys was performed with real-time and static bah-scale imaging. COMPARISON: None. FINDINGS: RIGHT KIDNEY: Normal location of the right kidney, which is normal in size. The right kidney measures 12.0 cm. There is a normal cortex of the right kidney. The renal cortex measures 2.8 cm. There is no right renal mass or cyst. There are no right renal calculi. There is no right hydronephrosis. DISTAL RIGHT URETER: There is non-visualization of the distal right ureter. There is no demonstrated right ureterovesical junction calculus. There is a visualized right ureteral jet. LEFT KIDNEY: Normal location of the left kidney, which is normal in size. The left kidney measures 11.9 cm. There is a normal cortex of the left kidney. The renal cortex measures 1.9 cm. There is no left renal mass or cyst. There are no left renal calculi. There is no left hydronephrosis. DISTAL LEFT URETER: There is non-visualization of the distal left ureter. There is no demonstrated left ureterovesical junction calculus. There is a visualized left ureteral jet. BLADDER: The distended urinary bladder has a volume of 1590 ml. The empty urinary bladder has a volume of 100 ml. There is a normal wall thickness of the distended urinary bladder. There is no demonstrated mass within the urinary bladder. There are no demonstrated bladder calculi. US/Kidney and Bladder IMPRESSION: 100 cc of postvoid residual. Unremarkable kidneys. No evidence of nephrolithiasis or hydronephrosis. Electronically Signed: Stanton Taylor DO at 18:02 EDT Tel , Service support ,
[2018-12-06] MEDS: HYDROmorphone 1 MG/ML Syringe IV ×2 (10:47→22:10)
[2018-12-06] MEDS: cycloBENZAPRine HCl 10 MG Tablet PO (10:47)
[2018-12-06 13:26] LABS: Bedside Glucose 431 mg/dL (70-110)
--- NOTE | 2018-12-06 14:48 | CASEMGMT ---
Addendum entered by Fauzia Lee 12/06/18 15:15: During conversation, SW assessed for pt risk for self-harm. Pt states she does feel like a burden to others, but would not and does not have a plan to kill herself. She would not leave her daughter behind and does not want her biological father to have custody;therefore, would not inflict self-harm. Pt did agree to f/u with counseling. Original Note: Social Work Met with pt and completed PHQ-9. Pt indicates severe depression. Spoke with pt at length about stressor at home and life changes. 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 Pt has applied for disability but has been denied with each step, and will begin the appeal process. Pt is unable to work more hours or she is readmitted to the hospital. Mood has suffered from this process and major change in lifestyle, but her boyfriend who lives close by is very supportive, per pt. Provided counseling resources for pt as she was open to following up upon discharge. Pt is on Medicaid and receives very little food assistance to support needs. Pt struggles paying electric bills and has requires wifi for daughter's school work, but cannot afford it. She states she is involved with [employer] and [employer]. Provided resources for assistance with electric, wifi, food pantries, meals on wheels. Provided emotional and verbal support. Pt appreciative of resources and support. Fauzia Lee, MARIO ETCHER ENAMELING
--- NOTE | 2018-12-06 14:51 | PN_ITS ---
Patient Problems: Active and Suspected Problems (Last Reviewed 12/05/18 @ 00:55 by Uriah Nicole MD) Chest pain (Acute) Subjective: Patient was seen and examined. She had a cardiac catheter was unremarkable for new lesions. She complained overnight of lumbar pain that was excruciating, unchanged with IV morphine. She felt the pain after being given Definity contrast for stress ECHO. She denied any dizziness or palpitation. CT of the abdomen and pelvis cannot be done today because of likelihood of presence of renal system. Objective: Physical Exam General: Alert, Oriented x3, Cooperative, appeared uncomfortable, in pain HEENT: Atraumatic, PERRLA, EOMI, Normocephalic Neck: Supple, No JVD, Negative Carotid Bruits Lungs: Clear to auscultation, Normal air movement Cardiovascular: Regular rate, No murmurs Abdomen: Bowel Sounds Present, Soft, Non Tender Extremities: No edema, Capillary Refill Less than 3 Seconds Skin: No rashes, No breakdown Musculoskeletal: No Tenderness to Palpation of Joints or Extremities Neurological: Cranial nerves II-XII grossly intact, Neuro grossly intact, Muscle tone normal, - - No dysmetria Psych/Mental Status: Normal Affect, Appropriate Vitals/I&O's: Vital Signs Temp Pulse Resp BP Pulse Ox 98.1 F 84 14 85/51 L 95 12/06/18 14:09 12/06/18 14:09 12/06/18 14:09 12/06/18 14:09 12/06/18 14:09 Oxygen Flow Rate (L/min) 2 Oxygen Delivery Method Room Air Weight: 90.809 kg Body Mass Index (BMI) 31.4 Finger Stick Blood Glucose 202 Orthostatic Vital Signs Start: 12/04/18 21:33 Freq: q24h Status: Active Protocol: Activity Type Activity Date Activity User E-Sign Co-Sign Detail Recorded Client Recorded Date Recorded By Document 12/05/18 21:33 PAL [id number] 12/05/18 22:22 PAL 12/05/18 21:33 Orthostatic Vitals Standing -Blood Pressure (90/60-120/80) 104/64 -Extremity Use Right Arm -Pulse Rate (60-100) 84 Sitting -Blood Pressure (90/60-120/80) 99/63 -Extremity Use Right Arm -Pulse Rate (60-100) 76 Lying -Blood Pressure (90/60-120/80) 109/65 -Extremity Use Right Arm -Pulse Rate (60-100) 79 Intake and Output for Last 24 Hours 12/04/18 12/05/18 12/06/18 23:59 23:59 23:59 Intake Total 200 / 200 1000 / 1000 417 / 417 Output Total 0 / 0 Balance 200 / 200 1000 / 1000 417 / 417 Laboratory Results 12/05/18 16:13: POC Glucose 299 H 12/05/18 22:30: POC Glucose 414 H 12/06/18 02:24: POC Glucose 320 H 12/06/18 03:57: Sodium 137, Potassium 3.8, Chloride 103, Carbon Dioxide 23.0, Anion Gap 11, BUN 13, Creatinine 0.65, Estim Creat Clear Calc 110.93, Est GFR (MDRD) Af Amer 132, Est GFR (MDRD) Non-Af 109, BUN/Creatinine Ratio 20.1 H, Glucose 271 H, Calcium 8.7 12/06/18 04:00: Urine Color Yellow, Urine Clarity Sl. Cloudy, Urine pH 6.0, Ur Specific Rio 1.015, Urine Protein Negative, Urine Glucose (UA) 1000 H, Urine Ketones 50 H, Urine Occult Blood 25 H, Urine Nitrite Negative, Urine Bilirubin Negative, Urine Urobilinogen Normal, Ur Leukocyte Esterase 500 H, Urine RBC 5-10 SEEN, Urine WBC >100 SEEN, Ur Squamous Epith Cells 10-25 SEEN, Urine Bacteria 0 SEEN, Urine Mucus 0 SEEN 12/06/18 06:36: POC Glucose 231 H 12/06/18 09:20: POC Glucose 254 H 12/06/18 13:14: POC Glucose 431 H Current Medications Acetaminophen (Tylenol) 650 mg PO Q6H PRN PRN PRN Reason: Mild pain 1-3/Temp > 100.7 F Last Admin: 12/05/18 10:19 Dose: 650 mg Documented by: Aspirin (Ecotrin) 81 mg PO DAILY@0800 [facility] Last Admin: 12/06/18 06:29 Dose: 81 mg Documented by: Atorvastatin Calcium (Lipitor) 80 mg PO QHS [facility] Last Admin: 12/05/18 22:36 Dose: 80 mg Documented by: Clopidogrel Bisulfate (Plavix) 75 mg PO DAILY@2200 [facility] Last Admin: 12/06/18 06:29 Dose: 75 mg Documented by: Dextrose (D50w Syringe) 0 gm IV X1 PRN; Protocol PRN Reason: Hypoglycemia Famotidine (Pepcid) 20 mg PO BID [facility] Last Admin: 12/06/18 06:30 Dose: 20 mg Documented by: Gabapentin (Neurontin) 300 mg PO DAILY [facility] Last Admin: 12/06/18 09:22 Dose: 300 mg Documented by: Gabapentin (Neurontin) 1,200 mg PO QHS [facility] Last Admin: 12/05/18 22:36 Dose: 1,200 mg Documented by: Glucagon () 1 mg IM .X1 PRN PRN Reason: Hypoglycemia Heparin Sodium (Beef Lung) (Heparin 500 Unit/5 Ml (100/Ml)) 500 unit IV UD PRN PRN Reason: HEPARIN FLUSH Hydromorphone HCl (Dilaudid Inj) 1 mg IV Q3H PRN PRN PRN Reason: SEVERE PAIN (6-1010) Last Admin: 12/06/18 10:47 Dose: 1 mg Documented by: Sodium Chloride () 1,000 mls @ 0 mls/hr IV .Q0M [facility] Last Admin: 12/05/18 22:44 Dose: 15 mls/hr Documented by: Sodium Chloride () 1,000 mls @ 15 mls/hr IV .Q48H [facility] Last Admin: 12/06/18 06:47 Dose: Not Given Documented by: Levofloxacin (Levaquin Iv) 750 mg in 150 mls @ 100 mls/hr IV Q24 [facility] Last Admin: 12/06/18 06:48 Dose: Not Given Documented by: Insulin Glargine (Lantus (Bk)) 35 units SC BID [facility] Last Admin: 12/06/18 09:22 Dose: 35 units Documented by: Insulin Human Lispro (Humalog Kwikpen (Bkc)) 26 unit SC TIDCM [facility] Last Admin: 12/06/18 13:15 Dose: 26 units Documented by: Insulin Human Lispro (Humalog Kwikpen (Bk)) 0 unit SC Q4 [facility]; Protocol Last Admin: 12/06/18 13:15 Dose: 7 units Documented by: Isosorbide Mononitrate (Imdur) 30 mg PO DAILY [facility] Last Admin: 12/06/18 06:40 Dose: 30 mg Documented by: Magnesium Oxide (Mag-Ox 400) 400 mg PO BID [facility] Last Admin: 12/06/18 09:22 Dose: 400 mg Documented by: Melatonin (Melatonin) 3 mg PO QHS PRN PRN PRN Reason: INSOMNIA Metoprolol Tartrate (Lopressor (Beta Lizbeth)) 25 mg PO BID [facility] Last Admin: 12/06/18 06:49 Dose: 25 mg Documented by: Nitroglycerin (Nitrostat) 0.4 mg SUBLINGUAL Q5M PRN PRN Reason: CARDIAC/CHEST PAIN Ondansetron HCl (Zofran) 4 mg IV Q8H PRN PRN PRN Reason: NAUSEA/VOMITING Last Admin: 12/06/18 00:53 Dose: 4 mg Documented by: Promethazine HCl (Phenergan Tablet) 12.5 mg PO Q6H PRN PRN PRN Reason: NAUSEA/VOMITING Last Admin: 12/06/18 03:40 Dose: 12.5 mg Documented by: Ranolazine (Ranexa) 1,000 mg PO BID [facility] Last Admin: 12/06/18 09:22 Dose: 1,000 mg Documented by: Sertraline HCl (Zoloft) 100 mg PO DAILY@2200 [facility] Last Admin: 12/05/18 22:35 Dose: 100 mg Documented by: Sodium Chloride () 10 - 40 ml IV UD PRN PRN Reason: SALINE FLUSH Last Admin: 12/06/18 03:50 Dose: 20 ml Documented by: Medical Necessity - Tobacco Use Smoking Status: Former smoker Assessment/Plan All Active Problems (Last Reviewed 12/05/18 @ 00:55 by Uriah Nicole MD) Chest pain (Acute) Lumbar stenosis (Resolved) Th38 year old F with PMHx of CAD status post stent, Type 2 DM admitted with 1 day history of severe substernal episodic chest pain; loss of vision of left eye; syncope and heaviness of tongue consistent with chest pain and syncope. 1. Chest pain, atypical, patient underwent stress echo that was positive evidence of mild anterior and inferior Cardiac cath negative, h/o CAD s/p stent, on aspirin, plavix, statin, metoprolol, isosorbide and Ranexa 2. Acute lumbar pain, likely side-effect of Definity, on IV Dilaudid, will get renal ultrasound to rule out kidney stones 3. Syncope, unclear etiology, likely related to #1 4. Possible TIA, MRI of brain and MRA of head and neck is negative, continue on aspirin and statin. 5. Type 2 DM with neuropathy, sugars are fairly uncontrolled, continue on home regimen with blood sugar checks and insulin sliding scale 6. Depression, on Zoloft 7. DVT PPx- Lovenox 8. Disposition: DC in am if improved. Code Visit Inpatient E&M: 79937 Subs Hosp L2
[2018-12-06 17:15] LABS: Bedside Glucose > 500 mg/dL (70-110)
[2018-12-06] MEDS: Insulin Lispro 100 UNIT/ML INSULN.PEN 10 UNIT SC (17:16)
[2018-12-06 18:26] LABS: Bedside Glucose 484 mg/dL (70-110)
[2018-12-06] MEDS: Acetaminophen 325 MG Tablet 650 MG PO (19:52)
[2018-12-06] MEDS: 0.9% Normal Saline 1,000 ML 100 ML IV (19:53)
[2018-12-06] MEDS: Atorvastatin Calcium 80 MG Tablet PO (22:22)
[2018-12-06] MEDS: Gabapentin 600 MG Tablet 1200 MG PO (22:22)
[2018-12-06] MEDS: Sertraline 100 MG Tablet PO (22:23)
[2018-12-06 22:40] LABS: Bedside Glucose 351 mg/dL (70-110)
[2018-12-07] MEDS: Insulin Lispro 100 UNIT/ML INSULN.PEN SC ×2 (02:00→09:30)
[2018-12-07 02:06] LABS: Bedside Glucose 231 mg/dL (70-110)
[2018-12-07 02:25] VITALS: BP 99/63; PULSE 75; RESP 18; TEMP 36.6; O2SAT 98
[2018-12-07 03:01] VITALS: PULSE 75
[2018-12-07 06:26] LABS: Bedside Glucose 213 mg/dL (70-110)
[2018-12-07 07:07] VITALS: PULSE 68
[2018-12-07 07:45] VITALS: O2SAT 94
[2018-12-07 09:23] VITALS: BP 107/78; PULSE 79; RESP 18; TEMP 36.6; O2SAT 100
--- NOTE | 2018-12-07 09:23 | CT_ITS ---
STUDY: CT ABDOMEN AND PELVIS WITHOUT CONTRAST REASON FOR EXAM: Female, 38 years old. Radiating mid back pain RADIATION DOSAGE (If Supplied By Facility): CTDIvol = ( 16.31 ) mGy, DLP = ( 924.92 ) mGycm TECHNIQUE: Transaxial images were obtained from the dome of the diaphragm to the symphysis pubis without oral contrast, and without intravenous contrast. Sagittal and coronal images were reconstructed. Individualized dose optimization techniques were used for this CT. COMPARISON: None. FINDINGS: The visualized lung bases are unremarkable. The visualized portions of the heart are within normal limits. Normal liver. Normal gallbladder and extrahepatic biliary system. Normal spleen. Normal pancreas. Normal bilateral adrenal glands. Normal right kidney. Normal left kidney. Hyperdensities within the stomach likely represent ingested medication. Normal small intestine. Normal colon. The appendix is visualized and appears normal. And expressed seen on coronal recon image 80. Normal abdominal aorta. Normal inferior vena cava. Normal retroperitoneum. Normal urinary bladder. Normal-appearing uterus. No suspicious cystic mass or free fluid. Normal abdominal wall. Postsurgical changes at L4-5, hardware is intact and free of complication CT/Abdomen/Pelvis without Cont IMPRESSION: No suspicious solid organ abnormality No CT evidence of an acute inflammatory process, normal appendix visualized. No free intraperitoneal fluid, air, or suspicious adenopathy Postsurgical changes at L4-5, hardware is intact and free of complication Electronically Signed: Robert Jaramillo MD at 10:41 EDT , Service support ,
[2018-12-07 09:28] VITALS: PULSE 79
[2018-12-07] MEDS: Ranolazine 500 MG Tablet 1000 MG PO (09:28)
[2018-12-07] MEDS: Metoprolol Tartrate 25 MG Tablet PO (09:28)
[2018-12-07] MEDS: Famotidine 20 MG Tablet PO (09:28)
[2018-12-07] MEDS: Aspirin E.C. 81 MG Tablet PO (09:28)
[2018-12-07] MEDS: Isosorbide Mononitrate 30 MG Tablet PO (09:28)
[2018-12-07] MEDS: Magnesium Oxide 400 MG Tablet PO (09:28)
[2018-12-07] MEDS: Insulin Lispro 100 UNIT/ML INSULN.PEN 26 UNIT SC (09:29)
[2018-12-07] MEDS: Gabapentin 300 MG Capsule PO (09:29)
--- NOTE | 2018-12-07 09:30 | PN.CARD_ITS ---
Subjectve: Patient doing well from a cardiac standpoint. Telemetry negative. Patient still complains of intermittent severe right lower back pain, consistent with back spasm versus kidney stone. Apparently ultrasound of her abdomen was negative for kidney stones yesterday. Awaiting CT scan to confirm. Objective: Vital Signs Temp Pulse Resp BP Pulse Ox 97.8 F 79 18 107/78 100 12/07/18 09:23 12/07/18 09:23 12/07/18 09:23 12/07/18 09:23 12/07/18 09:23 Oxygen Flow Rate (L/min) 2 Oxygen Delivery Method Room Air Weight: 200 lb 3.193 oz Body Mass Index (BMI) 31.4 Finger Stick Blood Glucose 202 Orthostatic Vital Signs Start: 12/04/18 21:33 Freq: q24h Status: Active Protocol: Activity Type Activity Date Activity User E-Sign Co-Sign Detail Recorded Client Recorded Date Recorded By Document 12/05/18 21:33 PAL [id number] 12/05/18 22:22 PAL 12/05/18 21:33 Orthostatic Vitals Standing -Blood Pressure (90/60-120/80) 104/64 -Extremity Use Right Arm -Pulse Rate (60-100) 84 Sitting -Blood Pressure (90/60-120/80) 99/63 -Extremity Use Right Arm -Pulse Rate (60-100) 76 Lying -Blood Pressure (90/60-120/80) 109/65 -Extremity Use Right Arm -Pulse Rate (60-100) 79 Intake and Output for Last 24 Hours 12/05/18 12/06/18 12/07/18 23:59 23:59 23:59 Intake Total 1000 / 1000 1517 / 2366 1464 / 1464 Balance 1000 / 1000 1517 / 2366 1464 / 1464 General: Awake, Alert, Oriented x 3 HEENT: PERRL, EOMI, Sclera Non Icteric Neck: Supple, Good ROM, No Lymph Node Enlargement Lungs: Clear to auscultation Cardiovascular: Regular Rhythm, Normal S1, Normal S2, No Murmurs, No Rubs, No Gallops Vascular: No Carotid Bruits, Normal Femoral Pulses, Normal Radial Pulses, Normal Dorsalis Pedal Pulse, Normal Posterior Tibial Pulses Abdomen: Bowel Sounds Present, Soft, Non Tender, No HSM, No Organomegaly Extremities: No Cyanosis, No Clubbing, No edema Neurological: No Focal Motor or Sensory Deficit Rhythm: EKG: ECHO: Stress Test: Cardiac Cath: PCI: CT Surgery: Holter monitor: EPS: PPM: CXR: Chest CT Scan: Medical Necessity - Tobacco Use Smoking Status: Former smoker Assessment/Plan 1. Coronary artery disease: Repeat catheterization demonstrated no significant coronary occlusive disease at this time. Recommend medical management for coronary occlusive disease. 2. Back pain: The patient had back pain during echocardiogram evaluation with the use of Definity. I am uncertain whether the Definity had any bearing upon her back pain, but she appeared to get it right after injection x2. In addition she has evidence of leukocyte esterase, hematuria, and elevated glucose in her urine. Ultrasound of her kidneys are negative for nephrolithiasis or hydronep hrosis. The patient also has a history of back surgery, and back spasms in the past. The location of her pain is near where her previous surgical site was located. I recommended the patient undergo a CT scan without contrast of her abdomen to determine if she has any nephrolithiasis that may have been missed on her ultrasound given her body habitus. Patient is undergoing pain management therap y with Dr. Allen with fairly decent results. 3. Hyperlipidemia: Continue Lipitor therapy. Consider holding her Lipitor for a week or to determine if this is causing any of her back pain. 4. Thank you very much for the opportunity to participate in the cardiac care of your patient. Patient may be discharged home from a cardiac standpoint. Code Visit Inpatient E&M: 31333 Subs Hosp L2
[2018-12-07 09:40] LABS: Bedside Glucose 202 mg/dL (70-110)
[2018-12-07] MEDS: 0.9% NaCl Peripheral Flush Adult/Peds IV (10:41)
[2018-12-07] MEDS: cycloBENZAPRine HCl 10 MG Tablet PO (10:41)
--- NOTE | 2018-12-07 10:58 | PCM.DC ---
- Discharge Diagnoses Current Active Problems: Current Active and Chronic Problems (Last Reviewed 12/05/18 @ 00:55 by Uriah Nicole MD) Chest pain (Acute) Reason(s) for Visit for Discharge Instructions: Chest pain You will use the following diet at home:: Calorie/Carbohydrate Controlled (specify 1200, 1400, etc), Cardiac Your food should be the consistency of: Regular Your liquids should be the consistency of: Regular/Thin Discharge Activity: Return to Normal Activity Additional Instructions: Continue to take all your medications as prescribed. Continue to be active. Follow-up with your primary care doctor within 2 weeks Allergies/Adverse Reactions: Allergies perflutren [From DefinCompBlue] Allergy (Severe, Verified 12/06/18 07:53) back pain Iodinated Contrast Media [Iodinated Contrast Media - IV Dye] Allergy (Verified 07/03/18 13:54) Hives Penicillins Allergy (Verified 07/03/18 13:54) Rash Sulfa (Sulfonamide Antibiotics) Allergy (Verified 07/03/18 13:54) Hives Beta-Blockers (Beta-Adrenergic Bloc Adverse Reaction (Verified 07/03/18 13:54) Low blood pressure metformin Adverse Reaction (Verified 07/03/18 13:54) Upset Stomach nitroglycerin IV Allergy (Uncoded 06/25/18 16:10) DROPS HR nitro drips per pt will drop bp quick and will bottom out Medications to take at Discharge Aspirin [Aspirin, Baby] 81 mg PO DAILY 03/04/15 Sertraline HCl [Zoloft] 100 mg PO DAILY 11/25/15 Nitroglycerin (INPATIENT USE) [Nitrostat] 0.4 mg SUBLINGUAL Q5M PRN #1 bottle 11/26/15 isosorbide mononitrate ER 30 mg tablet,extended release 24 hr 30 mg PO DAILY #90 tab 11/07/17 Insulin Lispro [Humalog KwikPen] 26 units SQ TIDCM 05/02/18 Insulin Lispro [Humalog KwikPen] See Protocol SQ TIDCM 05/02/18 Gabapentin [Neurontin] 300 mg PO DAILY 06/16/18 Ondansetron [Zofran Odt] 4 mg PO Q8H PRN PRN #10 tab 06/16/18 ranolazine ER 1,000 mg tablet,extended release,12 hr 1,000 mg PO BID #60 tab 08/05/18 atorvastatin 80 mg tablet 80 mg PO QHS #30 tab 09/05/18 clopidogrel 75 mg tablet 75 mg PO DAILY #90 tab 09/05/18 magnesium oxide 400 mg (241.3 mg magnesium) tablet 400 mg PO BID #60 tab 10/15/18 Gabapentin [Neurontin] 1,200 mg PO QHS 12/04/18 Insulin Glargine,Hum.rec.anlog [Basaglar Kwikpen U-100] 35 units SQ BID 12/04/18 Metoprolol Tartrate [Lopressor (beta zita)] 25 mg PO BID #60 tab 12/07/18 cycloBENZAPRine HCl [Flexeril] 10 mg PO TID PRN PRN #20 tab 12/07/18 The following prescriptions were given: cycloBENZAPRine HCl [Flexeril] 10 mg PO TID PRN PRN #20 tab PRN Reason: Pain Transmission Status: Sent to [address] Metoprolol Tartrate [Lopressor (beta zita)] 25 mg PO BID #60 tab Transmission Status: Sent to [address] Primary Care Physician: Alka Pringle [Primary Care Provider] - Please follow up with your Primary Care Physician in: within 1-2 weeks Test Results: Test results from this visit will be discussed in further detail at your follow-up appointment, if applicable. Proposed Discharge Date: 12/07/18
--- NOTE | 2018-12-07 10:59 | PCM.DC.SUM ---
Discharge Date and Diagnosis Date of Admission: 12/04/18 Date of Discharge: 12/07/18 - Primary Discharge Diagnosis Active and Suspected Problems (Last Reviewed 12/05/18 @ 00:55 by Uriah Nicole MD) Chest pain (Acute) Acute lumbar pain Syncope, unclear etiology Possible TIA - Secondary Discharge Diagnosis Chronic Problems (Last Reviewed 12/05/18 @ 00:55 by Uriah Nicole MD) Chronic systolic (congestive) heart failure (Chronic) Ischemic cardiomyopathy (Chronic) Old anterior wall myocardial infarction (Chronic) History of coronary artery stent placement (Chronic 02/2014) [id number] and Mid LAD 01/2014, PCI-INOCENCIA-Mid RCA 02/2014 Essential (primary) hypertension (Chronic) Hyperlipidemia (Chronic) Hospital Course and Treatment Imaging Results: 12/07/18 09:23 Abdomen/Pelvis without Cont [CT] Urgent Clinical Impression(s) from Imaging Studies Brain CT 12/04/18 17:51 IMPRESSION: Normal unenhanced CT scan of the brain. Electronically Signed: Stanton Taylor DO at 18:55 EDT Tel , Service support , Cervical Spine CT 12/04/18 17:51 IMPRESSION: Straightening of the normal cervical lordosis. Remainder is within normal limits. Electronically Signed: Stanton Taylor DO at 19:11 EDT Tel , Service support , Facial/Sinus 12/04/18 17:51 IMPRESSION: Normal unenhanced CT of the facial bones. Electronically Signed: Stanton Taylor DO at 18:56 EDT Tel , Service support , Chest X-Ray 12/04/18 18:00 IMPRESSION: Normal x-ray examination of the chest. Electronically Signed: Stanton Taylor DO at 18:24 EDT Tel , Service support , Neck MRA 12/05/18 06:42 IMPRESSION: Normal bilateral cervical carotid and vertebral arteries. Electronically Signed: Jonathan James MD at 16:11 EDT , Service support , Brain MRI 12/05/18 08:00 IMPRESSION: Normal unenhanced MRI of the brain. Electronically Signed: Jonathan James MD at 15:59 EDT , Service support , Head MRA 12/05/18 08:00 IMPRESSION: Normal MRA of the head Electronically Signed: Jonathan James MD at 16:01 EDT , Service support , Renal Ultrasound 12/06/18 10:22 IMPRESSION: 100 cc of postvoid residual. Unremarkable kidneys. No evidence of nephrolithiasis or hydronephrosis. Electronically Signed: Stanton Taylor DO at 18:02 EDT Tel , Service support , Abdomen/Pelvis CT 12/07/18 09:23 IMPRESSION: No suspicious solid organ abnormality No CT evidence of an acute inflammatory process, normal appendix visualized. No free intraperitoneal fluid, air, or suspicious adenopathy Postsurgical changes at L4-5, hardware is intact and free of complication Electronically Signed: Robert Jaramillo MD at 10:41 EDT , Service support , None Operations: None Procedures: 2-D Echocardiogram, Cardiac catheterization Summary of Care Provided: 38 year old F with PMHx of CAD status post stent, Type 2 DM admitted with 1 day history of severe substernal episodic chest pain; loss of vision of left eye; syncope and heaviness of tongue consistent with chest pain and syncope. Her management was as follows; 1.Chest pain, atypical, stress echo that was positive showing evidence of mild anterior and inferior, cardiac cath negative, h/o CAD s/p stent, on aspirin, plavix, statin, metoprolol, isosorbide and Ranexa. 2. Acute lumbar pain, noted after she was given Definity, possibly side-effect of Definity, kidney stones ruled out with kidney ultrasound and Ct scan of abdomen/pelvis. Managed conservatively. 3. Syncope, unclear etiology, likely related to vasovagal. 4. Possible TIA, MRI of brain and MRA of head and neck is negative, on aspirin, plavix and statin. 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 Depression, on Zoloft Subjective: On the day of discharge, patient was seen and examined. She still has low back pain that was improving with the heat compressors. Denied chest pain, dizziness, SOB Objective: Physical Exam General: Alert, Oriented x3, Cooperative, appeared uncomfortable, in pain HEENT: Atraumatic, PERRLA, EOMI, Normocephalic Neck: Supple, No JVD, Negative Carotid Bruits Lungs: Clear to auscultation, Normal air movement Cardiovascular: Regular rate, No murmurs Abdomen: Bowel Sounds Present, Soft, Non Tender Extremities: No edema, Capillary Refill Less than 3 Seconds Skin: No rashes, No breakdown Musculoskeletal: No Tenderness to Palpation of Joints or Extremities Neurological: Cranial nerves II-XII grossly intact, Neuro grossly intact, Muscle tone normal, - - No dysmetria Psych/Mental Status: Normal Affect, Appropriate - Physical Exam Vital Signs Temp Pulse Resp BP Pulse Ox 97.8 F 79 18 107/78 100 12/07/18 09:23 12/07/18 09:28 12/07/18 09:23 12/07/18 09:23 12/07/18 09:23 Oxygen Flow Rate (L/min) 2 Oxygen Delivery Method Room Air Weight: 90.809 kg Body Mass Index (BMI) 31.4 Finger Stick Blood Glucose 202 Orthostatic Vital Signs Start: 12/04/18 21:33 Freq: q24h Status: Active Protocol: Activity Type Activity Date Activity User E-Sign Co-Sign Detail Recorded Client Recorded Date Recorded By Document 12/05/18 21:33 PAL [id number] 12/05/18 22:22 PAL 12/05/18 21:33 Orthostatic Vitals Standing -Blood Pressure (90/60-120/80 mm Hg) 104/64 -Extremity Use Right Arm -Pulse Rate (60-100 beats/min) 84 Sitting -Blood Pressure (90/60-120/80 mm Hg) 99/63 -Extremity Use Right Arm -Pulse Rate (60-100 beats/min) 76 Lying -Blood Pressure (90/60-120/80 mm Hg) 109/65 -Extremity Use Right Arm -Pulse Rate (60-100 beats/min) 79 Intake and Output for Last 24 Hours 12/05/18 12/06/18 12/07/18 23:59 23:59 23:59 Intake Total 1000 / 1000 1517 / 2366 1464 / 1464 Balance 1000 / 1000 1517 / 2366 1464 / 1464 Microbiology Past 72 Hours 12/06/18 04:00 Urine Culture - Preliminary Urine, Clean Catch Staphylococcus species POC Glucose 12/07/18 12/07/18 12/07/18 09:20 06:16 01:55 POC Glucose 202 H 213 H 231 H 12/06/18 12/06/18 12/06/18 22:18 18:21 17:05 POC Glucose 351 H 484 H* > 500 H* 12/06/18 13:14 POC Glucose 431 H Discharge Diet: Low fat/ Low Cholesterol, 2000 mg Sodium Diet, Carb Control Diet Discharge Activity: Return to Normal Activity Home Medications: Medications to take at Discharge Aspirin [Aspirin, Baby] 81 mg PO DAILY 03/04/15 Sertraline HCl [Zoloft] 100 mg PO DAILY 11/25/15 Nitroglycerin (INPATIENT USE) [Nitrostat] 0.4 mg SUBLINGUAL Q5M PRN #1 bottle 11/26/15 isosorbide mononitrate ER 30 mg tablet,extended release 24 hr 30 mg PO DAILY #90 tab 11/07/17 Insulin Lispro [Humalog KwikPen] 26 units SQ TIDCM 05/02/18 Insulin Lispro [Humalog KwikPen] See Protocol SQ TIDCM 05/02/18 Gabapentin [Neurontin] 300 mg PO DAILY 06/16/18 Ondansetron [Zofran Odt] 4 mg PO Q8H PRN PRN #10 tab 06/16/18 ranolazine ER 1,000 mg tablet,extended release,12 hr 1,000 mg PO BID #60 tab 08/05/18 atorvastatin 80 mg tablet 80 mg PO QHS #30 tab 09/05/18 clopidogrel 75 mg tablet 75 mg PO DAILY #90 tab 09/05/18 magnesium oxide 400 mg (241.3 mg magnesium) tablet 400 mg PO BID #60 tab 10/15/18 Gabapentin [Neurontin] 1,200 mg PO QHS 12/04/18 Insulin Glargine,Hum.rec.anlog [Basaglar Kwikpen U-100] 35 units SQ BID 12/04/18 Metoprolol Tartrate [Lopressor (beta zita)] 25 mg PO BID #60 tab 12/07/18 cycloBENZAPRine HCl [Flexeril] 10 mg PO TID PRN PRN #20 tab 12/07/18 Following Prescrptions Were Given to Patient: cycloBENZAPRine HCl [Flexeril] 10 mg PO TID PRN PRN #20 tab PRN Reason: Pain Transmission Status: Received by [address] Metoprolol Tartrate [Lopressor (beta zita)] 25 mg PO BID #60 tab Transmission Status: Received by [address] Primary Care Physician: Alka Pringle [Primary Care Provider] - Please follow up with your Primary Care Physician in: within 1-2 weeks Disposition: Home Minutes spent on discharge:: 45 Patient Condition:: Stable Medical Necessity - Tobacco Use Smoking Status: Former smoker Tobacco Use: Non-smoker Meaningful Use Info Meaningful Use Diagnoses (Choose all that apply): None applicable Code Visit Inpatient E&M: 14346 Disch Hosp
[2018-12-07 13:41] LABS: Bedside Glucose 193 mg/dL (70-110)
== END 2018-12-07 10:52 | disposition home or self-care (01) ==
LOC: ED 19:48 → PCU 12-05 02:00
PROVIDERS: Admitting Provider Hospitalist; Emergency Provider Emergency Medicine; Family Provider Family Medicine; PCP Family Medicine; Referring Provider Hospitalist; Visit Provider Internal Medicine
DX: R07.89 Other chest pain (principal); R55 Syncope and collapse; M54.5 Low back pain; E78.5 Hyperlipidemia, unspecified; I25.2 Old myocardial infarction; I25.5 Ischemic cardiomyopathy; I25.10 Atherosclerotic heart disease of native coronary artery without angina pectoris; E11.40 Type 2 diabetes mellitus with diabetic neuropathy, unspecified; F41.9 Anxiety disorder, unspecified; F32.9 Major depressive disorder, single episode, unspecified; G47.33 Obstructive sleep apnea (adult) (pediatric); I11.0 Hypertensive heart disease with heart failure; I50.9 Heart failure, unspecified; Z95.5 Presence of coronary angioplasty implant and graft; Z79.82 Long term (current) use of aspirin; Z79.4 Long term (current) use of insulin; Z79.899 Other long term (current) drug therapy; Z79.02 Long term (current) use of antithrombotics/antiplatelets; Z87.891 Personal history of nicotine dependence; I45.81 Long QT syndrome; I07.1 Rheumatic tricuspid insufficiency
CPT/HCPCS: 36415; 70450; 70486; 70544; 70549; 70551; 71045; 72125; 74176; 76770; 80048; 80061; 81001; 82009; 82962; 84484; 84703; 85025; 85610; 85730; 87077; 87086; 87088; 87186; 93005; 93017; 93306; 93350; 93458; 96361; 96374; 96375; 96376; 97802; 99152; 99218; 99285; A9575; J7030; J7040; Q9957; A4216; C1769; C1894; C8928; C8929; G0378; J0153; J2405; Q9967

== ENCOUNTER 2019-01-09 14:08 | Emergency (ER) | payer MEDICAID, SELFPAY ==
[2018-12-04 20:04] VITALS: BMI 31.4
[2019-01-09 14:10] VITALS: BP 115/90; PULSE 101; RESP 16; TEMP 36.7; O2SAT 96; BMI 31.3
--- NOTE | 2019-01-09 14:40 | RAD_ITS ---
STUDY: X-RAY - RIGHT FOOT CLINICAL: Female, 38 years old. Infection of the right great toe. Patient has a history of diabetes. TECHNIQUE: 3 view(s) of the foot. COMPARISON: None. FINDINGS: Normal talus, calcaneus, and tarsal bones. Normal visualized subtalar, talonavicular, calcaneocuboid, tarsal and tarsometatarsal articulations. Normal metatarsi. Normal metatarsophalangeal joint of the great toe. Normal tibial and fibular sesamoid bones. Normal interphalangeal joint of the great toe. Normal phalanges of the great toe. Normal second through fifth metatarsophalangeal joints. Normal interphalangeal joints and phalanges of the lesser toes. Soft tissue swelling overlying the right great toe. RAD/Foot min 3 Views IMPRESSION: Soft tissue swelling overlying the right great toe. Electronically Signed: Lupillo Mckeon, at 15:39 EDT , Service support ,
[2019-01-09] MEDS: HYDROcodone Bitartrate/Apap 5/325 Tablet PO (15:07)
[2019-01-09 15:09] LABS: Absolute Lymphocyte Count 1.78 X10^3/uL (0.83-4.51); Absolute Neutrophil Count 5.1 X10^3/uL (2.0-7.7); Basophil# 0.04 X10^3/uL; Basophil% 0.5 % (0-1); Eosinophil# 0.13 X10^3/uL; Eosinophils% 1.7 % (0-5); Hematocrit 39.5 % (37-47); Hemoglobin 13.6 g/dL (12.0-15.0); Lymphocyte # 1.78 X10^3/ul (4.0); Lymphocyte % 23.4 % (19-41); Mean Corp Hgb Conc 34.4 g/dL (32-36); Mean Corpuscular Hgb 29.5 pg (27.0-32.0); Mean Corpuscular Volume 85.7 fL (81-99); Monocyte% 6.6 % (0-10); NRBC Flagged by Analyzer 0 % (0-5); Neutrophil # 5.13 X10^3/uL (2.7-7.7); Neutrophil % 67.3 % (47-70); Platelet Count 219 K/mm3 (150-450); RBC Distribution Width CV 12.4 % (11.6-14.6); RBC Distribution Width SD 38.7 fl (35.1-43.9); Red Blood Count 4.61 M/mm3 (4.2-5.4); White Blood Count 7.6 K/mm3 (4.4-11.0)
[2019-01-09 15:23] LABS: Anion Gap 7 (5-15); BUN 6 mg/dL (7-18); Calcium,Total 9.2 mg/dL (8.5-10.1); Chloride 103 mmol/L (98-107); Creatinine, Serum 0.66 mg/dL (0.55-1.02); EST Glomerular Filtration Rate 106 mL/min (>60); Est Glom Filt Rate - Afr Amer 128 mL/min (>60); Estimated Creatinine Clearance 113.49 ml/min; Glucose 311 mg/dL (74-106); Potassium 3.7 mmol/L (3.5-5.1); Sodium Level 136 mmol/L (136-145)
[2019-01-09] MEDS: Ondansetron 4 MG/2 ML Vial IV (16:20)
[2019-01-09] MEDS: morphine 8 MG/ML Syringe 6 MG IV (16:20)
[2019-01-09 16:25] VITALS: BP 144/88; PULSE 89; RESP 14; O2SAT 98
--- NOTE | 2019-01-09 17:04 | ED.VISSUMM ---
- ER Visit Summary Date of Service: 01/09/19 Chief Complaint: Right great toe infection History of Present Illness: The patient is a 38 F CAD, [place] and diabetes, hypertension and cardiac stents. States he had a wound of the right great toe infection in the last 2 to 3 days. Reportedly had a fever of 101. No vomiting or diarrhea. No trauma. Physical Examination: Palpable female vital signs are stable afebrile. Does not look septic or toxic. No distress. H EENT exam unremarkable. Neck nontender. Lungs clear to auscultation bilaterally. Heart regular rhythm no murmur. Abdomen is soft and nontender. Extremities moves all 4. Patient's right great toe is red and swollen. The foot is uninvolved. There is no lymphangitic streaking. Calf is nontender nonswollen. There is no right inguinal lymphadenopathy. Otherwise the upper extremity left lower extremity are unremarkable. Upper chest wall does have dorsi and plantar flexion. She has decreased sensation in her feet from diabetic neuropathy. Patient she does have a DP pulse in the right foot. And the wound on the medial proximal end of the right great toe which is probably what caused the infection. There is no obvious signs of foreign body or any obvious puncture wound. Test Results: CBC showed a white count of 7. Hemoglobin 13. No bands. Chemistries unremarkable glucose elevated 311. Normal creatinine and gap. Right foot x-ray 3 views read by myself the radiologist shows soft tissue swelling. No osteomyelitis and no obvious foreign body. All these test results were discussed with patient. Emergency Department Course and Treatment: I initially ordered penicillin but the patient has an allergy to penicillin and ambulation diet. She does not know what her allergy was told as a child not to take it. She was treated with oral clindamycin. She and I discussed all options and will try outpatient therapy with clindamycin. 300 mg qid for 10 days. Treatment Plan: [place] for pain. And Motrin. Clindamycin 4 times daily for 10 days. I spoke with Dr. Mckinney on-call for podiatry. She will ensure the patient gets follow-up tomorrow in the office if she calls for an appointment. I have instructed the patient to call. Disposition: Discharge Impression: Right great toe infection with cellulitis History of insulin-dependent diabetes History of CAD with cardiac stents This note was generated with [employer] software. It may contain incorrect words, spelling, and punctuation that were not noted in review of the chart prior to signing ED Disposition - Plan for ED Patient: Referrals: Alka Pringle [Primary Care Provider] -
--- NOTE | 2019-01-09 17:10 | DCINST.ED_ITS ---
ED Disposition - Plan for ED Patient: Disposition: Home or Assisted Living Instructions: Cellulitis Prescriptions: Clindamycin [Cleocin] 300 mg PO 4X/DAY #40 cap Prescription Printed Hydrocodone Bitart/Apap 5-325 [[place] 5MG-325MG] 1 - 2 tab PO Q4H PRN PRN 5 Days #20 tab PRN Reason: Pain Prescription Printed Referrals: Jessica Mckinney DPM [STAFF PHYSICIAN] - 1 Day Additional Instructions: Call the box closing machine operator office Dr. Mckinney. I spoke with your today and she will see you tomorrow if you call in the morning. [place] and Motrin for pain. Clindamycin 4 times a day for the next 10 days. Return to ER if doing a lot worse meaning that the infection is spreading up your leg.
[2019-01-09] MEDS: Clindamycin HCl 150 MG Capsule 450 MG PO (17:14)
== END 2019-01-09 17:22 | disposition home or self-care (01) ==
PROVIDERS: Emergency Provider Emergency Medicine; Family Provider Family Medicine; PCP Family Medicine
DX: L03.031 Cellulitis of right toe (principal); E11.9 Type 2 diabetes mellitus without complications; I10 Essential (primary) hypertension; I25.10 Atherosclerotic heart disease of native coronary artery without angina pectoris; I25.2 Old myocardial infarction; Z79.4 Long term (current) use of insulin; Z88.0 Allergy status to penicillin; Z95.5 Presence of coronary angioplasty implant and graft; Z86.14 Personal history of Methicillin resistant Staphylococcus aureus infection
CPT/HCPCS: 73630; 80048; 85025; 96365; 96375; 99284; A4216; J2405

== ENCOUNTER → 2019-01-10 17:47 | Outpatient (CLI) | payer MEDICAID, SELFPAY ==
[2019-01-09 14:10] VITALS: BMI 31.3
[2019-01-10 19:46] LABS: M R Staph aureus DNA By PCR Negative (Negative); Probe Check PASS; Specimen Processing Control PASS; Staph aureus DNA By PCR NEGATIVE (Negative)
== END ==
PROVIDERS: Family Provider Family Medicine; PCP Family Medicine; Referring Provider Podiatrist; Visit Provider Podiatrist
DX: L03.031 Cellulitis of right toe (principal)
CPT/HCPCS: 87070; 87075; 87077; 87186; 87205; 87640

== ENCOUNTER 2019-03-18 19:30 | Emergency (ER) | payer MEDICAID, SELFPAY ==
[2019-03-18 19:35] VITALS: BP 125/86; PULSE 101; RESP 15; TEMP 36.8; O2SAT 98; BMI 30.6
--- NOTE | 2019-03-18 19:40 | EKG12_ITS ---
Test Reason : CP Blood Pressure : / mmHG Vent. Rate : 101 BPM Atrial Rate : 101 BPM P-R Int : 122 ms QRS Dur : 092 ms QT Int : 374 ms P-R-T Axes : 021 -18 048 degrees QTc Int : 484 ms Sinus tachycardia Anterolateral infarct (cited on or before 02-MAY-2018) Abnormal ECG Confirmed by HERB MITCHELL, PATI ([id number]), associate entertainment editor KITTY BURKETT ([id number]) on 03/21/2019 12:23:10 PM Referred By: NONA Confirmed By:CARLENE ESTEVEZ MD
[2019-03-18 19:55] VITALS: O2SAT 100
[2019-03-18 20:00] LABS: Absolute Neutrophil Count 4.6 X10^3/uL (2.0-7.7); Basophil# 0.06 X10^3/uL; Basophil% 0.8 % (0-1); Eosinophil# 0.09 X10^3/uL; Eosinophils% 1.2 % (0-5); Hematocrit 42.2 % (37-47); Hemoglobin 14.4 g/dL (12.0-15.0); Lymphocyte % 31.4 % (19-41); Mean Corp Hgb Conc 34.1 g/dL (32-36); Mean Corpuscular Hgb 29.1 pg (27.0-32.0); Mean Corpuscular Volume 85.4 fL (81-99); Mean Platelet Vol. 10.1 fl (6.2-12.0); Monocyte% 6.5 % (0-10); NRBC Flagged by Analyzer 0 % (0-5); Neutrophil # 4.56 X10^3/uL (2.7-7.7); Neutrophil % 59.6 % (47-70); Platelet Count 247 K/mm3 (150-450); RBC Distribution Width CV 12.2 % (11.6-14.6); RBC Distribution Width SD 37.8 fl (35.1-43.9); Red Blood Count 4.94 M/mm3 (4.2-5.4); White Blood Count 7.7 K/mm3 (4.4-11.0)
--- NOTE | 2019-03-18 20:00 | RAD_ITS ---
STUDY: X-RAY CHEST REASON FOR EXAM: Female, 38 years old. Chest pain TECHNIQUE: Frontal view of the chest COMPARISON: X-ray chest December 04, 2018 FINDINGS: The lungs are clear. There are no pleural effusions. There is no pneumothorax. The heart is normal in size. The visualized osseous structures are within normal limits. RAD/Chest 1 View (Portable) IMPRESSION: No acute thoracic pathology. Electronically Signed: Jonathan Portillo, at 20:12 EST Tel , Service support ,
[2019-03-18 20:15] LABS: Prothrombin Time (Protime)PT. 12.5 SECONDS (11.7-14.9)
[2019-03-18 20:20] LABS: Anion Gap 10 (5-15); BUN 14 mg/dL (7-18); BUN/Creat Ratio 20.8 RATIO (10-20); Calcium,Total 9.2 mg/dL (8.5-10.1); Chloride 102 mmol/L (98-107); Creatinine, Serum 0.67 mg/dL (0.55-1.02); EST Glomerular Filtration Rate 104 mL/min (>60); Est Glom Filt Rate - Afr Amer 126 mL/min (>60); Glucose 278 mg/dL (74-106); Potassium 3.7 mmol/L (3.5-5.1); Sodium Level 137 mmol/L (136-145)
[2019-03-18 21:14] VITALS: BP 133/96; PULSE 91
[2019-03-18] MEDS: Nitroglycerin SL (ED/IMG/CATH) 0.4 MG TABLET SUBLINGUAL (21:14)
[2019-03-18 21:25] VITALS: BP 114/82; PULSE 96; RESP 16; O2SAT 96
--- NOTE | 2019-03-18 21:39 | ED.RN ---
AFTER FIRST DOSE OF NITRO WAS GIVEN PT DID NOT WANT ANY MORE DOSES, PT STATES NITRO DOES NOT TAKE THE PAIN AWAY, I HAVE BEEN TAKING IT FOR YEARS AN IT DOESN'T DO ANYTHING.
[2019-03-18] MEDS: Morphine 4 MG/ML Syringe IV (22:18)
--- NOTE | 2019-03-18 22:22 | ED.DCSUM_ITS ---
- ER Visit Summary Date of Service: 03/18/19 Chief Complaint: Chest pain History of Present Illness: The patient is a 38 F who presents with chest pain that began approximately 2 hours prior to arrival. Patient describes the pain as sharp and stabbing. Patient states the pain is over the substernal and left parasternal area. Patient states she also has pain under her left scapula. Patient states nothing makes her pain better or worse. Patient admits to some nausea and some shortness of breath. Patient also admits to some lightheadedness and dizziness. Patient states she frequently gets palpitations. Patient denies any diaphoresis. Patient does have a history of coronary artery disease. Patient states she had a recent heart catheterization which showed small vessel disease. Physical Examination: Vital signs are stable. Patient is afebrile. Patient is in no acute distress. Oral mucosa is pink and moist. Neck is supple. Trachea is midline. There is no JVD. Heart was regular rate and rhythm. Lungs are clear and equal bilateral. Abdomen is soft and nontender. Cranial nerves II through XII are intact. There are no focal motor or sensory deficits noted. Extremities are intact. There is no calf tenderness or edema. Test Results: EKG showed sinus tachycardia with a rate of 101. There are no acute ST or T wave changes. This was unchanged compared to previous EKG dated 12/06/2018. CBC, basic metabolic profile, and troponin were obtained and were within normal limits. Since the patient's chest pain began approximately 2 hours prior to arrival, a delta troponin was obtained. This was also normal. Emergency Department Course and Treatment: Patient was given aspirin and sublingual nitroglycerin. Patient had no improvement with the sublingual nitroglycerin. Patient was given an injection of morphine. Patient was feeling better on reevaluation. Patient was instructed to follow-up with her primary care physician in 5 to 7 days. Patient has a HEART score of 3. Patient was a dvised that this is low risk for acute cardiac event. Patient and family understood and were agreeable with the plan. All questions were answered. Disposition: Discharge home Impression: Chest pain This note was generated with [employer] dictation software. It may contain incorrect words, spelling, and punctuation that were not noted in review of the chart prior to signing ED Disposition - Plan for ED Patient: Disposition: Home or Assisted Living Diagnosis: Chest pain of uncertain etiology Instructions: CHEST PAIN, Uncertain Cause Referrals: Alka Pringle [Primary Care Provider] - 3-5 Days
[2019-03-18 23:00] VITALS: BP 135/87; PULSE 96; RESP 15; O2SAT 96
[2019-03-18 23:54] VITALS: BP 124/88; PULSE 94; RESP 23; O2SAT 97
== END 2019-03-18 23:55 | disposition home or self-care (01) ==
PROVIDERS: Emergency Provider Emergency Medicine; Family Provider Family Medicine; PCP Family Medicine
DX: R07.9 Chest pain, unspecified (principal); R20.2 Paresthesia of skin; M54.9 Dorsalgia, unspecified; R11.0 Nausea; I25.10 Atherosclerotic heart disease of native coronary artery without angina pectoris; R06.02 Shortness of breath; E11.9 Type 2 diabetes mellitus without complications; Z82.49 Family history of ischemic heart disease and other diseases of the circulatory system; I25.2 Old myocardial infarction; Z95.2 Presence of prosthetic heart valve
CPT/HCPCS: 36415; 71045; 80048; 84484; 85025; 85610; 93005; 99285; J7030; A4216

== ENCOUNTER 2019-05-10 10:03 | Emergency (ER) | payer MEDICAID, SELFPAY ==
[2019-05-10 10:03] VITALS: BP 137/82; PULSE 97; RESP 20; TEMP 36.5; O2SAT 100; BMI 29.7
--- NOTE | 2019-05-10 10:13 | EKG12_ITS ---
Test Reason : CP Blood Pressure : / mmHG Vent. Rate : 093 BPM Atrial Rate : 093 BPM P-R Int : 154 ms QRS Dur : 092 ms QT Int : 386 ms P-R-T Axes : 040 -08 043 degrees QTc Int : 479 ms Normal sinus rhythm Low voltage QRS (Limb Leads) Anterolateral infarct , age undetermined, cannot be excluded Abnormal ECG Confirmed by CECILIA MITCHELL, YUNIOR ([id number]), editor map MITA HAN ([id number]) on 05/12/2019 10:01:13 AM Referred By: TOM Confirmed By:YUNIOR BROOKS MD
--- NOTE | 2019-05-10 10:17 | ED.DCSUM_ITS ---
- ER Visit Summary Date of Service: 05/10/19 Chief Complaint: [Chest pain] History of Present Illness: The patient is a 39 F [presents with chest pain that started yesterday. Patient states that she had intermittent pain starting yesterday that she describes as pressure as well as pain in the left side of her chest. Yesterday the discomfort was intermittent but since around 3 AM is been continuous. Patient has history of coronary artery disease with 2 stents placed about 7 years ago one in the LAD and 1 in the RCA. Patient states that she had an ST elevation [place] at that time. Patient states that she ran out of her nitroglycerin and sometimes that helps her pain and sometimes it does not. Patient tells me she had a heart catheterization in November 2018 that just showed patently open stents and minimal small vessel disease. Her early childhood assistant locally is Dr. Yong Ma. Patient denies recent travel or surgery. No history of PE or DVT.] Physical Examination: [HEENT-PERRLA, EOMI. Cranial nerves II through XII grossly intact. TMs clear. Mucous membranes moist. No adenopathy. Cardiovascular-regular rate and rhythm without murmur or ectopy Lungs-clear to auscultation, chest wall stable without crepitus or subcu emphysema Abdomen-normoactive bowel sounds, soft, nontender, no rebound or rigidity, no peritoneal signs. Extremities-intact ?4, normal range of motion, normal pulses, atraumatic] Test Results: [EKG obtained on arrival shows sinus rhythm with a ventricular rate of 93 bpm with old anterior lateral infarct noted.] CBC with differential obtained was normal. Chemistries unremarkable. Glucose was 461. Troponin was less than 0.015. Chest x-ray was unremarkable. Emergency Department Course and Treatment: [1 in the department patient received sublingual nitro x2 and had no relief of her pain. Patient was given 4 mg of morphine. For her blood sugar 461 patient normally uses a sliding scale at home and she would give herself 50 units of Humalog which I ordered for her here.] Treatment Plan: [Patient will have repeat of her fingerstick blood sugar in an hour. I did discuss case with cardiology Dr. Jc Luna who felt comfortable that given her recent heart catheterization and given her unremarkable exam in the emergency department did not feel patient required admission for further cardiac evaluation and at this point I am in agreement. My suspicion for PE is very low as she has had no recent travel or surgery and has no PE risk factors. Patient states that she was mistakenly told in the past after a VQ scan that she had a PE which she did not have. Patient also allergic to IV contrast. Patient is adamant that this is the same pain that she gets from time to time and is not concerned about PE. She is comfortable not pursuing it further.] Disposition: [Discharged home in stable condition. 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 Vice return if worsening pain, increasing shortness of breath, or condition should worsen anyway. Impression: [Chest pain-etiology uncertain Hyperglycemia in a known diabetic] This note was generated with [employer] dictation software. It may contain incorrect words, spelling, and punctuation that were not noted in review of the chart prior to signing ED Disposition - Plan for ED Patient: Referrals: Alka Pringle [Primary Care Provider] -
--- NOTE | 2019-05-10 10:18 | RAD_ITS ---
STUDY: X-RAY CHEST REASON FOR EXAM: Female, 39 years old. Chest pain, previous heart attack TECHNIQUE: Single AP portable view of the chest. COMPARISON: 03/18/2019. FINDINGS: The lungs are clear and expanded. There is no demonstrated pleural abnormality. Normal size heart. Normal mediastinum and charlene. Normal visualized pulmonary arteries. Normal visualized aortic arch and descending thoracic aorta. Normal visualized thoracic spine. Normal visualized ribs, clavicles, and shoulders. There is no demonstrated abnormality of the visualized soft tissue structures of the upper abdomen. RAD/Chest 1 View (Portable) IMPRESSION: Normal x-ray examination of the chest. Electronically Signed: Quinn Mata MD at 11:03 EST Tel , Service support ,
[2019-05-10 10:21] VITALS: O2SAT 98
[2019-05-10 10:21] LABS: Absolute Lymphocyte Count 1.49 X10^3/uL (0.83-4.51); Absolute Neutrophil Count 4.8 X10^3/uL (2.0-7.7); Basophil# 0.04 X10^3/uL; Basophil% 0.6 % (0-1); Eosinophil# 0.12 X10^3/uL; Eosinophils% 1.7 % (0-5); Hematocrit 42.4 % (37-47); Hemoglobin 14.3 g/dL (12.0-15.0); Lymphocyte # 1.49 X10^3/ul (4.0); Lymphocyte % 21.5 % (19-41); Mean Corp Hgb Conc 33.7 g/dL (32-36); Mean Platelet Vol. 10.1 fl (6.2-12.0); Monocyte# 0.44 X10^3/uL; Monocyte% 6.3 % (0-10); NRBC Flagged by Analyzer 0 % (0-5); Neutrophil # 4.83 X10^3/uL (2.7-7.7); Neutrophil % 69.6 % (47-70); Platelet Count 229 K/mm3 (150-450); RBC Distribution Width CV 12.1 % (11.6-14.6); RBC Distribution Width SD 37.7 fl (35.1-43.9); Red Blood Count 4.93 M/mm3 (4.2-5.4); White Blood Count 6.9 K/mm3 (4.4-11.0)
[2019-05-10 10:25] VITALS: BP 119/83; PULSE 97
[2019-05-10] MEDS: Nitroglycerin SL (ED/IMG/CATH) 0.4 MG TABLET SUBLINGUAL ×2 (10:25→10:33)
[2019-05-10 10:33] VITALS: BP 102/74; PULSE 107
[2019-05-10] MEDS: 0.9% Normal Saline 1,000 ML 150 ML IV (10:35)
[2019-05-10 10:41] LABS: Anion Gap 10 (5-15); BUN 10 mg/dL (7-18); BUN/Creat Ratio 9.9 RATIO (10-20); Calcium,Total 9.5 mg/dL (8.5-10.1); Chloride 101 mmol/L (98-107); Creatinine, Serum 1.01 mg/dL (0.55-1.02); EST Glomerular Filtration Rate 65 mL/min (>60); Est Glom Filt Rate - Afr Amer 79 mL/min (>60); Estimated Creatinine Clearance 73.44 ml/min; Glucose 461 mg/dL (74-106); Potassium 3.6 mmol/L (3.5-5.1); Sodium Level 137 mmol/L (136-145)
--- NOTE | 2019-05-10 10:53 | ED.RN ---
pt had glucose [address] lab. dr ho aware
[2019-05-10] MEDS: Morphine 4 MG/ML Syringe IV (10:57)
[2019-05-10] MEDS: Insulin Lispro 100 UNIT/ML INSULN.PEN 50 UNIT SC (11:01)
[2019-05-10 11:13] VITALS: BP 96/72; PULSE 87; RESP 19; O2SAT 96
--- NOTE | 2019-05-10 11:13 | ED.DEP ---
ED Disposition - Plan for ED Patient: Instructions: ED Diabetic Hyperglycemia Prescriptions: Nitroglycerin [Nitrostat] 0.4 mg SL X1 PRN #30 tab.subl PRN Reason: Pain Score 1-02/06 Transmission Status: [facility] Referrals: Alka Pringle [Primary Care Provider] - 3-5 Days Yong Ma MD [STAFF PHYSICIAN] - 3-5 Days
[2019-05-10 11:25] LABS: Bedside Glucose 340 mg/dL (70-110)
[2019-05-10 11:56] LABS: Bedside Glucose 238 mg/dL (70-110)
[2019-05-10 12:04] VITALS: BP 108/79; PULSE 89; RESP 22; O2SAT 96
== END 2019-05-10 12:03 | disposition home or self-care (01) ==
LOC: ED 10:25
PROVIDERS: Emergency Provider Emergency Medicine; Family Provider Family Medicine; PCP Family Medicine
DX: R07.9 Chest pain, unspecified (principal); E10.65 Type 1 diabetes mellitus with hyperglycemia; I10 Essential (primary) hypertension; I25.10 Atherosclerotic heart disease of native coronary artery without angina pectoris; I25.2 Old myocardial infarction; Z95.5 Presence of coronary angioplasty implant and graft
CPT/HCPCS: 71045; 80048; 82962; 84484; 85025; 93005; 96361; 96372; 96374; 99285; J7030

== ENCOUNTER 2019-09-13 20:38 | Emergency (ER) | payer MEDICAID, SELFPAY ==
[2019-09-13 20:39] VITALS: BP 138/91; PULSE 85; RESP 15; TEMP 36.7; O2SAT 100; BMI 31.4
--- NOTE | 2019-09-13 20:53 | RAD_ITS ---
STUDY: X-RAY CHEST REASON FOR EXAM: Female, 39 years old. CHEST PAIN STARTED LAST NIGHT, BODY ACHES, FATIGUE, OCCASIONAL COUGH TECHNIQUE: Single frontal view of the chest. COMPARISON: March 18, 2019 and May 10, 2019 FINDINGS: There is a new vague right basilar opacity. Normal size heart. Normal mediastinum and charlene. Normal visualized pulmonary arteries. Normal visualized aortic arch and descending thoracic aorta. Normal visualized thoracic spine. Normal visualized ribs, clavicles, and shoulders. There is no demonstrated abnormality of the visualized soft tissue structures of the upper abdomen. RAD/Chest 1 View (Portable) IMPRESSION: Indeterminate right basilar opacity, this may be secondary to a confluence of shadows however cannot exclude evolving pneumonia. Electronically Signed: Maris Esqueda MD at 22:03 EDT Tel , Service support ,
--- NOTE | 2019-09-13 20:53 | EKG12_ITS ---
Test Reason : CP Blood Pressure : / mmHG Vent. Rate : 081 BPM Atrial Rate : 081 BPM P-R Int : 164 ms QRS Dur : 100 ms QT Int : 402 ms P-R-T Axes : 052 -05 058 degrees QTc Int : 466 ms Normal sinus rhythm Low voltage QRS (limb leads) Anterolateral infarct , age undetermined Abnormal ECG Confirmed by CECILIA MITCHELL, YUNIOR ([id number]), restaurant expeditor ELIZABETH RODRIGUEZ ([id number]) on 09/16/2019 3:25:55 PM Referred By: BLANCA Confirmed By:YUNIOR BROOKS MD
[2019-09-13 21:22] VITALS: O2SAT 100
--- NOTE | 2019-09-13 21:27 | ED.DCSUM_ITS ---
- ER Visit Summary Date of Service: 09/13/19 Chief Complaint: Chest pain, body aches History of Present Illness: The patient is a 39 F who has chest pain and body aches. The chest pain started yesterday. It is a tightness in the middle part of her chest. It does not radiate. Laying flat makes it worse. Nothing makes it better. She does get short of breath with this. She had a STEMI 5 years ago with 2 stents placed. She is on aspirin and Plavix daily. She states she feels tired and rundown. She has body aches all over. She took nitroglycerin without any relief. No fevers. Denies any exposures to coronavirus. Physical Examination: Vital signs reviewed. HEENT exam unremarkable. Heart is regular rate and rhythm without murmurs. Lungs are clear to auscultation. Abdomen is soft and nontender. Extremities reveal no edema. Peripheral pulses are equal. Skin exam normal. Neurologic exam normal. Test Results: Laboratory studies unremarkable except for glucose of 203. Troponin normal. EKG sinus rhythm with a rate of 81. Chest x-ray shows a confluence of shadows which could be pneumonia. Emergency Department Course and Treatment: Patient was given aspirin and morphine. She may have pneumonia on the x-ray. I will treat her with a azithromycin. She will had COVID testing sent to [facility] as she does not meet any urgent criteria for this. Patient will be discharged to follow-up with her PCP. I do not feel that the chest pain is cardiac. She has a normal troponin with having pain for more than 12 hours. Treatment Plan: [] Disposition: [Discharge Impression: Pneumonia This note was generated with [employer]ripp[employer] dictation software. It may contain incorrect words, spelling, and punctuation that were not noted in review of the chart prior to signing ED Disposition - Plan for ED Patient: Disposition: Home or Assisted Living Instructions: Pneumonia Prescriptions: Azithromycin [Zithromax] 250 mg PO DAILY #4 tab Transmission Status: Pending to [facility] Referrals: Alka Pringle [Primary Care Provider] -
[2019-09-13 21:29] LABS: Absolute Lymphocyte Count 2.25 X10^3/uL (0.83-4.51); Absolute Neutrophil Count 3.8 X10^3/uL (2.0-7.7); Basophil# 0.03 X10^3/uL; Basophil% 0.4 % (0-1); Eosinophil# 0.17 X10^3/uL; Eosinophils% 2.5 % (0-5); Hematocrit 36.9 % (37-47); Hemoglobin 12.4 g/dL (12.0-15.0); Lymphocyte # 2.25 X10^3/ul (4.0); Lymphocyte % 33.5 % (19-41); Mean Corp Hgb Conc 33.6 g/dL (32-36); Mean Corpuscular Hgb 29.3 pg (27.0-32.0); Mean Corpuscular Volume 87.2 fL (81-99); Mean Platelet Vol. 9.5 fl (6.2-12.0); Monocyte% 7.4 % (0-10); NRBC Flagged by Analyzer 0 % (0-5); Neutrophil # 3.75 X10^3/uL (2.7-7.7); Neutrophil % 55.9 % (47-70); Platelet Count 242 K/mm3 (150-450); RBC Distribution Width CV 12.2 % (11.6-14.6); RBC Distribution Width SD 39.2 fl (35.1-43.9); Red Blood Count 4.23 M/mm3 (4.2-5.4); White Blood Count 6.7 K/mm3 (4.4-11.0)
[2019-09-13] MEDS: Ondansetron 4 MG/2 ML Vial IV (21:31)
[2019-09-13] MEDS: Aspirin 81 MG TAB.CHEW 324 MG PO (21:33)
[2019-09-13] MEDS: Morphine 4 MG/ML Syringe IV (21:33)
[2019-09-13 21:53] LABS: Anion Gap 6 (5-15); BUN 16 mg/dL (7-18); BUN/Creat Ratio 25.7 RATIO (10-20); Chloride 105 mmol/L (98-107); Creatinine, Serum 0.62 mg/dL (0.55-1.02); EST Glomerular Filtration Rate 114 mL/min (>60); Est Glom Filt Rate - Afr Amer 138 mL/min (>60); Estimated Creatinine Clearance 119.64 ml/min; Glucose 203 mg/dL (74-106); Sodium Level 138 mmol/L (136-145)
[2019-09-13 22:51] VITALS: BP 115/97; PULSE 83; RESP 14; O2SAT 98
[2019-09-13] MEDS: Azithromycin 250 MG Tablet 500 MG PO (23:08)
== END 2019-09-13 23:24 | disposition home or self-care (01) ==
PROVIDERS: Emergency Provider Emergency Medicine; PCP Family Medicine
DX: J18.9 Pneumonia, unspecified organism (principal); Z79.02 Long term (current) use of antithrombotics/antiplatelets; Z79.82 Long term (current) use of aspirin; I25.10 Atherosclerotic heart disease of native coronary artery without angina pectoris; Z95.5 Presence of coronary angioplasty implant and graft; I25.2 Old myocardial infarction
CPT/HCPCS: 71045; 80048; 84484; 85025; 87635; 93005; 96374; 96375; 99285; G2023; A4216; J2405; U0002

== ENCOUNTER 2019-11-17 17:24 | Emergency (ER) | payer MEDICAID, SELFPAY ==
[2019-11-17 17:25] VITALS: BP 130/93; PULSE 95; RESP 16; TEMP 36.6; O2SAT 99; BMI 31.3
--- NOTE | 2019-11-17 17:43 | MRI_ITS ---
STUDY: MRI THORACIC SPINE WITH AND WITHOUT CONTRAST REASON FOR EXAM: Female, 39 years old. pain low back and left leg x 5 days, rectal tone loss, prev lumbar surgery 2014 TECHNIQUE: IV 19cc dotarem was administered for the contrast portion of the examination. COMPARISON: None. FINDINGS: Normal kyphosis of the thoracic spine. There is no substantial scoliosis. T1-2, T2-3, T3-4, T4-5, T5-6, T6-7, T7-8, T8-9, T9-10, T10-11, T11-12: Normal endplates. Normal disc hydration, heights and morphology of the corresponding intervertebral discs. Normal central canal and intervertebral neural foramina at the corresponding levels. Incidental T6 vertebral body hemangioma. Normal visualized thoracic cord. 14 mm right adrenal adenoma. There is no enhancing abnormality. MRI/Spine Thoracic W/WO Contrast IMPRESSION: No MRI evidence of significant thoracic spine pathology. No evidence of nerve root impingement or significant disc disease. No evidence of cord pathology or abnormal intrathecal postcontrast enhancement. Electronically Signed: Sebas Francois MD at 20:19 EDT Tel , Service support ,
--- NOTE | 2019-11-17 17:43 | MRI_ITS ---
STUDY: MRI LUMBAR SPINE WITH AND WITHOUT CONTRAST REASON FOR EXAM: Female, 39 years old. pain low back and left leg x 5 days, rectal tone loss, prev lumbar surgery 2014 TECHNIQUE: Standardized fat and water weighted pulse sequences were obtained in the sagittal and axial planes. IV dotarem 19ml was administered for the contrast portion of the examination. COMPARISON: 08/16/2012 FINDINGS: T12-L1: Normal endplates. Normal disc height, hydration and morphology. Normal bilateral facet joints. Normal central canal and bilateral lateral recesses. Normal bilateral intervertebral neural foramina. Normal lumbar lordosis. There is no substantial scoliosis. Normal conus medullaris that terminates at the L1 level. Bilateral posterior pedicle fusions at L4 and L5. L4-5 disc space fusion. L1-2: Normal endplates. Normal disc height, hydration and morphology. Normal bilateral facet joints. Normal central canal and bilateral lateral recesses. Normal bilateral intervertebral neural foramina. L2-3: Normal endplates. Normal disc height, hydration and morphology. Normal bilateral facet joints. Normal central canal and bilateral lateral recesses. Normal bilateral intervertebral neural foramina. L3-4: Normal endplates. Normal disc height, hydration and morphology. Normal bilateral facet joints. Normal central canal and bilateral lateral recesses. Normal bilateral intervertebral neural foramina. L4-5: Bilateral laminectomies. Residual disc osteophyte complex with mild right foraminal stenosis. L5-S1: Bulging annulus and bilateral facet hypertrophy with mild bilateral foraminal stenoses. Normal visualized sacral ala. Normal visualized paraspinous soft tissue structures. MRI/Spine Lumbar W/WO Contrast IMPRESSION: Multilevel degenerative disease and postoperative change as described. No evidence of wade nerve root impingement. No evidence of abnormal intrathecal postcontrast enhancement. Electronically Signed: Sebas Francois MD at 19:52 EDT Tel , Service support ,
--- NOTE | 2019-11-17 17:48 | ED.DCSUM_ITS ---
History of Present Illness Chief Complaint: Back Informant: Patient Onset: Days Context: Gradual Onset Timing: Continuous Narrative: Patient is a 39-year-old female with history of spinal stenosis, degenerative disc disease and chronic back pain status post lumbar spinal surgery at [facility]. She is presenting with worsening lower back pain. States the pain is on both sides but worse on the left. It radiates down her left leg. Today her leg actually gave out and she fell. She states she is also had increased paresthesias in her groin region. Patient states she has a history of significant neuropathy to her knees bilaterally but the groin paresthesias been progressing over the past week. This coincides with amount of her back pain. Patient also states she has intermittent episodes of urinary incontinence but this is grossly unchanged. She is not currently seeing any community relations specialist or pain management doctor. She did take 2 ibuprofen last night with no significant relief of her pain. Patient has no reported fever or chills. She has no other complaints at this time. Past Medical History - Allergies and Home Meds Allergies/Adverse Reactions: Allergies perflutren [From DefinarGEN-X] Allergy (Severe, Verified 11/17/19 17:24) Anaphylaxis Iodinated Contrast Media [Iodinated Contrast Media - IV Dye] Allergy (Verified 11/17/19 17:24) Hives Penicillins Allergy (Verified 11/17/19 17:24) Rash Sulfa (Sulfonamide Antibiotics) Allergy (Verified 11/17/19 17:24) Hives Beta-Blockers (Beta-Adrenergic Bloc Adverse Reaction (Verified 11/17/19 17:24) Low blood pressure metformin Adverse Reaction (Verified 11/17/19 17:24) Upset Stomach nitroglycerin IV Allergy (Uncoded 11/17/19 17:24) DROPS HR nitro drips per pt will drop bp quick and will bottom out Primary Care Physician: Alka Pringle [Primary Care Provider] - Past Medical History: - - Systolic heart failure, ischemic cardiomyopathy, coronary artery disease, hypertension, hyperlipidemia, diabetes mellitus, peripheral neuropathy, spinal stenosis, degenerative disc disease Surgical History: - - PCI x2, bilateral tubal ligation, back surgery with L4-L5 rods and screws in place, tonsillectomy. Smoking Status: Never smoker - Family History Paternal Family History: Family History (Last Reviewed 12/05/18 @ 00:[address] Uriah Nicole MD) Father Cancer Brother Diabetes Sister Diabetes Heart disease Hypertension High cholesterol Mother Heart disease High cholesterol Hypertension CVA (cerebral vascular accident) Grandmother Heart disease High cholesterol Hypertension Grandfather Heart disease High cholesterol Hypertension CVA (cerebral vascular accident) Family History: Reports: Heart Disease Maternal Family History: Family History (Last Reviewed 12/05/18 @ 00:[address] Uriah Nicole MD) Father Cancer Brother Diabetes Sister Diabetes Heart disease Hypertension High cholesterol Mother Heart disease High cholesterol Hypertension CVA (cerebral vascular accident) Grandmother Heart disease High cholesterol Hypertension Grandfather Heart disease High cholesterol Hypertension CVA (cerebral vascular accident) Family History: Reports: Stroke Review of Systems General: Denies: Chills, Fever, Sweats Eyes: Denies: Visual changes - bilaterally, Diplopia ENT: Denies: Rhinorrhea, Sore throat Cardiovascular: Denies: Chest pain, Palpitations Respiratory: Denies: Dyspnea, Cough, Dyspnea on exertion Gastrointestinal: Denies: Abdominal pain, Nausea, Vomiting, Diarrhea, Melena, Hematochezia Genitourinary: Denies: Dysuria, Hematuria, Frequency Musculoskeletal: Reports: Back pain. Denies: Extremity Pain Skin: Denies: Rash, Wounds Neurological: Reports: Parasthesia - lower extremities, groin, hands . Denies: Headache, Weakness, Numbness Physical Exam Vital Signs/Narrative: Vital Signs Temp Pulse Resp BP Pulse Ox 11/17/19 17:25 98 F 95 16 130/93 H 99 Inital Vital Signs reviewed: Yes General: Well nourished, Well developed, No Acute Distress Head: Normocephalic, Atraumatic Eyes: Perrl, EOMI ENT: Moist mucous membranes, No rhinorrhea Neck: Supple, Nontender, No JVD Cardiovascular: Regular rate, Regular rhythm, No murmurs, - - 2+ bilateral DP pulses, 2+ radial pulses Respiratory: No distress, CTA bilaterally, Chest nontender Abdomen: Soft, Nontender, Nondistended, Normal bowel sounds Rectal: Nontender, - - Minimal rectal tone, paresthesias with palpation of the skin around the rectum and perineum Back: Nontender, Normal Inspection, - - Bilateral lower lumbar paraspinal tenderness however is not reproducible. Pain in 15 degrees with right straight leg test, pain at 45 degrees with left straight leg test. Negative for: CVA tenderness, Spinal tenderness Extremities: Nontender, No edema Skin: Normal color, No rash Neurological: Alert, Oriented x3, Cranial nerves II-XII grossly intact, Normal Strength, Normal Sensation, Parasthesia - Bilateral lower extremities up to the knee?per patient this is baseline., - - 5/5 strength bilaterally with plantar and dorsiflexion of the feet Psychological: Normal affect, Normal Mood Diagnostic/Tx/Re-eval Clinical Impression(s) from Imaging Studies Lumbar Spine MRI 11/17/19 17:43 IMPRESSION: Multilevel degenerative disease and postoperative change as described. No evidence of wade nerve root impingement. No evidence of abnormal intrathecal postcontrast enhancement. Electronically Signed: Sebas Francois MD at 19:52 EDT Tel , Service support , Thoracic Spine MRI 11/17/19 17:43 IMPRESSION: No MRI evidence of significant thoracic spine pathology. No evidence of nerve root impingement or significant disc disease. No evidence of cord pathology or abnormal intrathecal postcontrast enhancement. Electronically Signed: Sebas Francois MD at 20:19 EDT Tel , Service support , Laboratory Data 11/17/19 11/17/19 17:50 17:50 WBC 6.6 RBC 4.51 Hgb 13.6 Hct 39.3 MCV 87.1 MCH 30.2 MCHC 34.6 RDW Std Deviation 41.2 RDW Coeff of [place] 13.1 Plt Count 274 MPV 10.2 Immature Gran % (Auto) 0.300 Neut % (Auto) 56.2 Lymph % (Auto) 32.9 [place] % (Auto) 8.5 Eos % (Auto) 1.5 Baso % (Auto) 0.6 Absolute Neuts (auto) 3.7 Absolute Lymphs (auto) 2.16 Nucleated RBC % 0 Sodium 136 Potassium 4.0 Chloride 103 Carbon Dioxide 28.0 Anion Gap 5 BUN 18 Creatinine 0.91 Estim Creat Clear Calc 81.51 Est GFR (MDRD) Af Amer 89 Est GFR (MDRD) Non-Af 73 BUN/Creatinine Ratio 19.8 Glucose 341 H Calcium 9.4 - Medical Decision Making Patient is evaluated for acute on chronic low back pain. Patient physical exam is complicated as she has significant neuropathy at baseline however she feels like she has new saddle anesthesia. In addition she has decreased rectal tone on exam. I am not sure how much of this is from lack of effort versus inability. However given her abnormal neurologic findings and worsening back pain, I did order an MRI. This does not show any acute process. Patient is given 6 mg of IV morphine initially with good pain control. She does require re-dose of 4 mg after being on the MRI table. Patient is otherwise hemodynamically stable in the emergency room. She is counseled that she does not have any acute surgical process to explain her pain on MRI and likely this is more of a sciatica compounded with her pre-existing neuropathy. Patient will be given Flexeril for outpatient follow-up and instructed to alternate Tylenol and ibuprofen for pain control. She is given a copy of her MRI results. She is encouraged to follow-up with her primary care doctor for further evaluation and management of her back pain. Patient is counseled on signs and symptoms requiring return to the emergency room. Patient verbalizes agreement and understand this plan. Patient discharged home in stable and improved condition. ED Disposition - Plan for ED Patient: Disposition: Home or Assisted Living Diagnosis: Back pain associated with peripheral numbness Instructions: ED Spasm Back No Trauma Prescriptions: cycloBENZAPRine HCl [Flexeril] 10 mg PO TID PRN #20 tab PRN Reason: Muscle Spasm Transmission Status: Received by [facility] Referrals: Alka Pringle [Primary Care Provider] - Additional Instructions: Your MRI did not show any acute compressions to explain your pain. We will start you on a muscle relaxer. Alternate Tylenol and ibuprofen as needed for pain control. Please follow-up with your primary care doctor within the next week.
[2019-11-17] MEDS: Ondansetron 4 MG/2 ML Vial IV (17:58)
[2019-11-17] MEDS: morphine 8 MG/ML Syringe 6 MG IV (17:58)
[2019-11-17 18:13] LABS: Absolute Lymphocyte Count 2.16 X10^3/uL (0.83-4.51); Absolute Neutrophil Count 3.7 X10^3/uL (2.0-7.7); Basophil# 0.04 X10^3/uL; Basophil% 0.6 % (0-1); Eosinophils% 1.5 % (0-5); Hematocrit 39.3 % (37-47); Hemoglobin 13.6 g/dL (12.0-15.0); Lymphocyte # 2.16 X10^3/ul (4.0); Lymphocyte % 32.9 % (19-41); Mean Corp Hgb Conc 34.6 g/dL (32-36); Mean Corpuscular Hgb 30.2 pg (27.0-32.0); Mean Corpuscular Volume 87.1 fL (81-99); Mean Platelet Vol. 10.2 fl (6.2-12.0); Monocyte# 0.56 X10^3/uL; Monocyte% 8.5 % (0-10); NRBC Flagged by Analyzer 0 % (0-5); Neutrophil # 3.68 X10^3/uL (2.7-7.7); Neutrophil % 56.2 % (47-70); Platelet Count 274 K/mm3 (150-450); RBC Distribution Width CV 13.1 % (11.6-14.6); RBC Distribution Width SD 41.2 fl (35.1-43.9); Red Blood Count 4.51 M/mm3 (4.2-5.4); White Blood Count 6.6 K/mm3 (4.4-11.0)
[2019-11-17 18:16] LABS: Anion Gap 5 (5-15); BUN 18 mg/dL (7-18); BUN/Creat Ratio 19.8 RATIO (10-20); Calcium,Total 9.4 mg/dL (8.5-10.1); Chloride 103 mmol/L (98-107); Creatinine, Serum 0.91 mg/dL (0.55-1.02); EST Glomerular Filtration Rate 73 mL/min (>60); Est Glom Filt Rate - Afr Amer 89 mL/min (>60); Estimated Creatinine Clearance 81.51 ml/min; Glucose 341 mg/dL (74-106); Sodium Level 136 mmol/L (136-145)
[2019-11-17 20:18] VITALS: BP 103/81; PULSE 80; RESP 16; O2SAT 97
[2019-11-17] MEDS: Morphine 4 MG/ML Syringe IV (20:18)
[2019-11-17 21:40] VITALS: BP 127/82; PULSE 92; RESP 16; O2SAT 98
[2019-11-17] MEDS: cycloBENZAPRine HCl 10 MG Tablet PO (21:40)
== END 2019-11-17 21:41 | disposition home or self-care (01) ==
PROVIDERS: Emergency Provider Emergency Medicine; PCP Family Medicine
DX: M54.9 Dorsalgia, unspecified (principal); R20.0 Anesthesia of skin; G89.29 Other chronic pain; M54.5 Low back pain; I11.0 Hypertensive heart disease with heart failure; I25.10 Atherosclerotic heart disease of native coronary artery without angina pectoris; E78.5 Hyperlipidemia, unspecified; I25.5 Ischemic cardiomyopathy; I50.20 Unspecified systolic (congestive) heart failure; E11.42 Type 2 diabetes mellitus with diabetic polyneuropathy; M51.36 Other intervertebral disc degeneration, lumbar region; Z82.49 Family history of ischemic heart disease and other diseases of the circulatory system; Z88.0 Allergy status to penicillin; Z88.2 Allergy status to sulfonamides
CPT/HCPCS: 72157; 72158; 80048; 85025; 96374; 96375; 96376; 99283; A9575; A4216; J2405

== ENCOUNTER 2020-02-11 19:00 | Emergency (ER) | payer MEDICAID, SELFPAY ==
[2020-02-11 19:01] VITALS: BP 135/67; PULSE 101; RESP 24; TEMP 37.7; O2SAT 99; BMI 31.6
--- NOTE | 2020-02-11 19:14 | EKG12_ITS ---
Test Reason : COUGH Blood Pressure : / mmHG Vent. Rate : 100 BPM Atrial Rate : 100 BPM P-R Int : 162 ms QRS Dur : 102 ms QT Int : 390 ms P-R-T Axes : 041 -16 054 degrees QTc Int : 503 ms Normal sinus rhythm Anterolateral infarct , age undetermined Prolonged QT Abnormal ECG Confirmed by CECILIA MITCHELL, YUNIOR ([id number]), editorial director MITA HAN ([id number]) on 02/17/2020 8:11:03 AM Referred By: ORQUIDEA Confirmed By:YUNIOR BROOKS MD
--- NOTE | 2020-02-11 19:27 | ED.DCSUM_ITS ---
History of Present Illness Chief Complaint: Cough Informant: Patient Onset: Yesterday Context: Gradual Onset Timing: Continuous Current Severity: Moderate Maximum Severity: Moderate Narrative: The patient is a 39-year-old female with medical history significant for prior myocardial infarction with 2 stents, insulin-dependent diabetes, hyperlipidemia, fibromyalgia who presents to the emergency department cough and shortness of breath. The patient states her symptoms began yesterday. She was actually seen in an outside emergency department yesterday for nausea and vomiting. She states he has a history of gastroparesis. Lab work at that time was unremarkable. The patient was hydrated and discharged home. She states since then, she developed low-grade fever. She is had cough and dyspnea. She also describes myalgias and arthralgias. She states that her daughter at home had similar symptoms but tested negative for COVID. However, she has been in contact with 2 people who are currently being tested. Prior similar symptoms: No Recent Illness/Hospitalization: No Past Medical History - Allergies and Home Meds Allergies/Adverse Reactions: Allergies perflutren [From Definity] Allergy (Severe, Verified 02/11/20 19:01) Anaphylaxis Iodinated Contrast Media [Iodinated Contrast Media - IV Dye] Allergy (Verified 02/11/20 19:01) Hives Penicillins Allergy (Verified 02/11/20 19:01) Rash Sulfa (Sulfonamide Antibiotics) Allergy (Verified 02/11/20 19:01) Hives Beta-Blockers (Beta-Adrenergic Bloc Adverse Reaction (Verified 02/11/20 19:01) Low blood pressure metformin Adverse Reaction (Verified 02/11/20 19:01) Upset Stomach nitroglycerin IV Allergy (Uncoded 11/17/19 17:24) DROPS HR nitro drips per pt will drop bp quick and will bottom out Primary Care Physician: Alka Pringle [Primary Care Provider] - Prior records reviewed: Yes Past Medical History: - - Prior myocardial infarction, hypertension, hyperlipidemia, diabetes Surgical History: angioplasty, - - PCI x2, bilateral tubal ligation, back surgery with L4-L5 rods and screws in place, tonsillectomy. Smoking Status: Never smoker - Family History Paternal Family History: Family History (Last Reviewed 12/05/18 @ 00:[address] Uriah Nicole MD) Father Cancer Brother Diabetes Sister Diabetes Heart disease Hypertension High cholesterol Mother Heart disease High cholesterol Hypertension CVA (cerebral vascular accident) Grandmother Heart disease High cholesterol Hypertension Grandfather Heart disease High cholesterol Hypertension CVA (cerebral vascular accident) Family History: Reports: Heart Disease Maternal Family History: Family History (Last Reviewed 12/05/18 @ 00:[address] Uriah Nicole MD) Father Cancer Brother Diabetes Sister Diabetes Heart disease Hypertension High cholesterol Mother Heart disease High cholesterol Hypertension CVA (cerebral vascular accident) Grandmother Heart disease High cholesterol Hypertension Grandfather Heart disease High cholesterol Hypertension CVA (cerebral vascular accident) Family History: Reports: Stroke Review of Systems General: Reports: Fever, Malaise. Denies: Chills, Sweats Eyes: Denies: Visual changes - bilaterally, Diplopia ENT: Denies: Rhinorrhea, Sore throat Cardiovascular: Denies: Chest pain, Palpitations Respiratory: Reports: Dyspnea, Cough. Denies: Dyspnea on exertion Gastrointestinal: Reports: Nausea. Denies: Abdominal pain, Vomiting, Diarrhea, Melena, Hematochezia Genitourinary: Denies: Dysuria, Hematuria, Frequency Musculoskeletal: Reports: Myalgias. Denies: Back pain, Extremity Pain Skin: Denies: Rash, Wounds Neurological: Denies: Headache, Weakness, Numbness Physical Exam Vital Signs/Narrative: Vital Signs Temp Pulse Resp BP Pulse Ox 02/11/20 19:01 99.8 F H 101 H 24 H 135/67 H 99 Inital Vital Signs reviewed: Yes General: Well nourished, Well developed, No Acute Distress Head: Normocephalic, Atraumatic Eyes: Perrl, EOMI ENT: Moist mucous membranes, No rhinorrhea Neck: Supple, Nontender Cardiovascular: Regular rate, Regular rhythm, No murmurs Respiratory: No distress, Chest nontender, Diminished Abdomen: Soft, Nontender, Nondistended, Normal bowel sounds Back: Nontender, Normal Inspection Extremities: Nontender, No edema Skin: Normal color, No rash Neurological: Alert, Oriented x3, Cranial nerves II-XII grossly intact, Normal Strength, Normal Sensation Psychological: Normal affect, Normal Mood Diagnostic/Tx/Re-eval Clinical Impression(s) from Imaging Studies Chest X-Ray 02/11/20 19:56 IMPRESSION: Normal x-ray examination of the chest. Electronically Signed: June Fraga MD at 20:18 EDT , Service support , Abnormal Lab Results 02/11/20 02/11/20 02/11/20 19:25 19:25 19:25 WBC 9.5 RBC 4.58 Hgb 13.6 Hct 40.4 MCV 88.2 MCH 29.7 MCHC 33.7 RDW Std Deviation 40.6 RDW Coeff of [place] 12.6 Plt Count 254 MPV 10.0 Immature Gran % (Auto) 0.400 Neut % (Auto) 73.1 H Lymph % (Auto) 17.6 L [place] % (Auto) 6.5 Eos % (Auto) 2.0 Baso % (Auto) 0.4 Absolute Neuts (auto) 6.9 Absolute Lymphs (auto) 1.67 Nucleated RBC % 0 Sodium 137 Potassium 3.6 Chloride 102 Carbon Dioxide 24.0 Anion Gap 11 BUN 9 Creatinine 0.72 Estim Creat Clear Calc 103.02 Est GFR (MDRD) Af Amer 116 Est GFR (MDRD) Non-Af 96 BUN/Creatinine Ratio 12.5 Glucose 263 H Calcium 9.3 Total Bilirubin 0.60 AST 14 L ALT 27 Alkaline Phosphatase 82 Troponin I < 0.015 B-Natriuretic Peptide 12.0 Total Protein 8.0 Albumin 4.1 Globulin 3.9 Albumin/Globulin Ratio 1.1 Lipase 131 - Rhythm Strip Rhythm Strip: Sinus Rhythm Rate: 80 Ectopy: None - EKG Initial EKG Interpretation: Sinus Rhythm, No Acute Injury Pattern, Non-Specific ST Changes Prior: Unchanged - Medical Decision Making Patient presents with cough, shortness of breath, fevers, and generalized malaise. She was in the emergency department at an outside facility yesterday. I was able to review those results. Her work-up was essentially negative. Today, she is mildly tachycardic and tachypneic. EKG was obtained. It demonstrated sinus rhythm without acute ischemia. Metabolic work-up was pursued. Patient's lab work was unremarkable. Cardiac enzymes are normal. BNP was negative. Chest x-ray does not show focal infiltrative process. I am he sitant to treat the patient with prednisone as she is a diabetic and is hyperglycemic. COVID testing is pending. However, her tachycardia has resolved. She is not requiring oxygen. She is not had a fever. I do feel that she will be safe for outpatient therapy and follow-up. I do not see a clear indication for antibiotics given her unremarkable chest x-ray and viral symptoms. I do feel that she is safe for discharge. Impression 1. Viral bronchitis ED Disposition - Plan for ED Patient: Instructions: ED Upper Resp Infec No Abx Tx Referrals: Alka Pringle [Primary Care Provider] -
[2020-02-11 19:33] VITALS: BP 144/89; PULSE 101; RESP 13; TEMP 37.7; O2SAT 97
[2020-02-11 19:49] LABS: Absolute Lymphocyte Count 1.67 X10^3/uL (0.83-4.51); Absolute Neutrophil Count 6.9 X10^3/uL (2.0-7.7); Basophil# 0.04 X10^3/uL; Basophil% 0.4 % (0-1); Eosinophil# 0.19 X10^3/uL; Hematocrit 40.4 % (37-47); Hemoglobin 13.6 g/dL (12.0-15.0); Lymphocyte # 1.67 X10^3/ul (4.0); Lymphocyte % 17.6 % (19-41); Mean Corp Hgb Conc 33.7 g/dL (32-36); Mean Corpuscular Hgb 29.7 pg (27.0-32.0); Mean Corpuscular Volume 88.2 fL (81-99); Monocyte# 0.62 X10^3/uL; Monocyte% 6.5 % (0-10); NRBC Flagged by Analyzer 0 % (0-5); Neutrophil # 6.91 X10^3/uL (2.7-7.7); Neutrophil % 73.1 % (47-70); Platelet Count 254 K/mm3 (150-450); RBC Distribution Width CV 12.6 % (11.6-14.6); RBC Distribution Width SD 40.6 fl (35.1-43.9); Red Blood Count 4.58 M/mm3 (4.2-5.4); White Blood Count 9.5 K/mm3 (4.4-11.0)
[2020-02-11] MEDS: Ondansetron 4 MG/2 ML Vial IV (19:50)
[2020-02-11] MEDS: Morphine 4 MG/ML Syringe IV (19:50)
--- NOTE | 2020-02-11 19:56 | RAD_ITS ---
STUDY: X-RAY CHEST REASON FOR EXAM: Female, 39 years old. SOB, COUGH, FEVER, DIFFICULTY BREATHING TECHNIQUE: 1 view COMPARISON: Prior chest radiograph of 09/13/2019 FINDINGS: The lungs are clear and expanded. There is no demonstrated pleural abnormality. Normal size heart. Normal mediastinum and charlene. Normal visualized pulmonary arteries. Normal visualized aortic arch and descending thoracic aorta. Normal visualized thoracic spine. Normal visualized ribs, clavicles, and shoulders. There is no demonstrated abnormality of the visualized soft tissue structures of the upper abdomen. RAD/Chest 1 View (Portable) IMPRESSION: Normal x-ray examination of the chest. Electronically Signed: June Fraga MD at 20:18 EDT , Service support ,
[2020-02-11 20:10] LABS: ALB/GLOB Ratio 1.1 RATIO (0.9-2.4); AST(SGOT) 14 U/L (15-37); Alanine Aminotransfer ALT/SGPT 27 U/L (13-56); Albumin, Serum 4.1 g/dL (3.2-5.0); Alkaline Phosphatase 82 U/L (45-117); Anion Gap 11 (5-15); BUN 9 mg/dL (7-18); BUN/Creat Ratio 12.5 RATIO (10-20); Calcium,Total 9.3 mg/dL (8.5-10.1); Chloride 102 mmol/L (98-107); Creatinine, Serum 0.72 mg/dL (0.55-1.02); EST Glomerular Filtration Rate 96 mL/min (>60); Est Glom Filt Rate - Afr Amer 116 mL/min (>60); Estimated Creatinine Clearance 103.02 ml/min; Globulin 3.9 g/dL (2.2-4.2); Glucose 263 mg/dL (74-106); Lipase 131 U/L (73-393); Potassium 3.6 mmol/L (3.5-5.1); Sodium Level 137 mmol/L (136-145)
[2020-02-11 20:22] VITALS: BP 127/88; PULSE 103; RESP 24; TEMP 37.2; O2SAT 97
--- NOTE | 2020-02-11 20:22 | ED.RN ---
PT REPORTS SHE TOOK TYLENOL AT [address] HEARD INFORMED.
[2020-02-11 22:06] VITALS: BP 151/99; PULSE 88; RESP 18; TEMP 37.2; O2SAT 96
--- NOTE | 2020-02-11 22:28 | ED.RN ---
PT REPORTS INCREASED SOB AND PAIN WHEN COUGHING. NOTIFIED.
[2020-02-11] MEDS: Acetaminophen 500 MG Tablet 1000 MG PO (22:42)
[2020-02-11 22:49] VITALS: BP 140/87; PULSE 100; RESP 17; O2SAT 98
== END 2020-02-11 22:51 | disposition home or self-care (01) ==
PROVIDERS: Emergency Provider Emergency Medicine; PCP Family Medicine
DX: J20.8 Acute bronchitis due to other specified organisms (principal); E78.5 Hyperlipidemia, unspecified; E11.9 Type 2 diabetes mellitus without complications; Z79.4 Long term (current) use of insulin; I25.2 Old myocardial infarction; Z79.899 Other long term (current) drug therapy; Z79.82 Long term (current) use of aspirin; M79.7 Fibromyalgia; I10 Essential (primary) hypertension; R94.31 Abnormal electrocardiogram [ECG] [EKG]
CPT/HCPCS: 71045; 80053; 83690; 83880; 84484; 85025; 87633; 87635; 93005; 96361; 96374; 96375; 99281; 99285; J7040; J2405; U0003

== ENCOUNTER 2020-05-03 11:06 | Emergency (ER) | payer MEDICAID, SELFPAY ==
[2020-05-03 11:08] VITALS: BP 142/88; PULSE 83; RESP 18; TEMP 36.4; O2SAT 100; BMI 30.5
--- NOTE | 2020-05-03 11:35 | EKG12_ITS ---
Test Reason : CP Blood Pressure : / mmHG Vent. Rate : 089 BPM Atrial Rate : 089 BPM P-R Int : 158 ms QRS Dur : 100 ms QT Int : 404 ms P-R-T Axes : 056 -01 066 degrees QTc Int : 491 ms Normal sinus rhythm Possible Anterior- Lateral infarct, age undetermined Abnormal ECG Confirmed by CECILIA MITCHELL, YUNIOR ([id number]), publishing editor MITA HAN ([id number]) on 05/05/2020 9:40:15 AM Referred By: HARRIETT/ROOPA Confirmed By:YUNIOR BROOKS MD
[2020-05-03] MEDS: Aspirin 81 MG TAB.CHEW 324 MG PO (11:43)
[2020-05-03 11:45] VITALS: BP 130/90; PULSE 91
[2020-05-03] MEDS: Nitroglycerin SL (ED/IMG/CATH) 0.4 MG TABLET SUBLINGUAL ×2 (11:45→11:55)
[2020-05-03 11:47] LABS: Absolute Lymphocyte Count 1.46 X10^3/uL (0.83-4.51); Absolute Neutrophil Count 4.4 X10^3/uL (2.0-7.7); Basophil# 0.03 X10^3/uL; Basophil% 0.5 % (0-1); Eosinophil# 0.13 X10^3/uL; Eosinophils% 2.1 % (0-5); Hematocrit 39.2 % (37-47); Hemoglobin 12.8 g/dL (12.0-15.0); Lymphocyte # 1.46 X10^3/ul (4.0); Lymphocyte % 23.1 % (19-41); Mean Corp Hgb Conc 32.7 g/dL (32-36); Mean Corpuscular Hgb 29.2 pg (27.0-32.0); Mean Corpuscular Volume 89.3 fL (81-99); Mean Platelet Vol. 9.9 fl (6.2-12.0); Monocyte# 0.26 X10^3/uL; Monocyte% 4.1 % (0-10); NRBC Flagged by Analyzer 0 % (0-5); Neutrophil # 4.42 X10^3/uL (2.7-7.7); Neutrophil % 69.9 % (47-70); Platelet Count 300 K/mm3 (150-450); RBC Distribution Width CV 13.2 % (11.6-14.6); RBC Distribution Width SD 42.6 fl (35.1-43.9); Red Blood Count 4.39 M/mm3 (4.2-5.4); White Blood Count 6.3 K/mm3 (4.4-11.0)
--- NOTE | 2020-05-03 11:52 | RAD_ITS ---
STUDY: X-RAY CHEST REASON FOR EXAM: Female, 40 years old. left upper chest and arm pain starting last night. TECHNIQUE: Single AP portable view of the chest. COMPARISON: 02/11/2020 FINDINGS: The lungs are clear and expanded. There is no demonstrated pleural abnormality. Normal size heart. Normal mediastinum and charlene. Normal visualized pulmonary arteries. Normal visualized aortic arch and descending thoracic aorta. Normal visualized thoracic spine. Normal visualized ribs, clavicles, and shoulders. There is no demonstrated abnormality of the visualized soft tissue structures of the upper abdomen. RAD/Chest 1 View (Portable) IMPRESSION: Normal x-ray examination of the chest. Electronically Signed: Francois Tay MD at 12:12 EST Tel , Service support ,
[2020-05-03 11:55] VITALS: BP 117/74; PULSE 95
[2020-05-03 12:00] LABS: Anion Gap 10 (5-15); BUN 16 mg/dL (7-18); BUN/Creat Ratio 19.1 RATIO (10-20); Calcium,Total 8.9 mg/dL (8.5-10.1); Chloride 103 mmol/L (98-107); Creatinine, Serum 0.84 mg/dL (0.55-1.02); EST Glomerular Filtration Rate 80 mL/min (>60); Est Glom Filt Rate - Afr Amer 97 mL/min (>60); Estimated Creatinine Clearance 87.44 ml/min; Glucose 318 mg/dL (74-106); Potassium 3.9 mmol/L (3.5-5.1); Sodium Level 137 mmol/L (136-145)
[2020-05-03 12:07] VITALS: BP 111/77; PULSE 98; RESP 20; O2SAT 97
[2020-05-03] MEDS: Morphine 2 MG/ML Syringe IV (12:41)
--- NOTE | 2020-05-03 13:06 | ED.DCSUM_ITS ---
- ER Visit Summary Date of Service: 05/03/20 Chief Complaint: Chest pain History of Present Illness: The patient is a 40 F who presents with chest pain that has been intermittent over the last 2 weeks. Patient states that it became worse yesterday. Patient was at the [employer] yesterday and when she was walking out she had to stop several times to catch her breath and that her chest pain resolved. Patient describes her pain as a pressure and cramping. Patient states that she went to a hospital in [place] and was evaluated there. Patient states she had 2 troponin tests performed there and they were increasing but she was discharged anyway. Patient admits to some nausea but denies any vomiting. Patient admits to some shortness of breath and diaphoresis. Patient also admits to some palpitations and lightheadedness. Physical Examination: Vital signs are stable. Patient is afebrile. Patient is in no acute distress. Oral mucosa is pink and moist. Neck is supple. Trachea is midline. There is no JVD. Heart was regular rate and rhythm. Lungs are clear and equal bilaterally. Abdomen is soft. Bowel sounds are normal. There is no tenderness. Cranial nerves II through XII are intact. There are no focal motor or sensory deficits. Extremities are intact. There is no calf tenderness or edema. Test Results: EKG was obtained. On my interpretation, there is a normal sinus rhythm with a rate of 89. There are no acute ST or T wave changes. This was unchanged compared to previous EKG dated 02/11/2020. Portable 1 view chest x- ray was obtained. On my interpretation, lung ambriz are clear. There is normal cardiac silhouette. Bony thorax is normal. There is no acute process noted. Radiologist also interpreted the x-ray and agrees. CBC was normal. Basic metabolic profile showed an elevated glucose of 318 but was otherwise within normal limits. Troponin was normal. Emergency Department Course and Treatment: Patient was given aspirin and sublingual nitroglycerin here. Patient had no change in her pain with the nitroglycerin. Patient was given a dose of morphine. Patient was feeling better on reevaluation. I did review the patient's results from her visit yesterday. Both troponin results were within normal limits. Case was discussed with Dr. Ma. He states that the patient's recent cath was normal. He feels that the patient is able to be discharged safely. Patient has a HEART score of 3. Patient was advised that this is low risk for acute cardiac event. Patient then requested a rapid Covid test. This was performed and was negative. Patient was instructed to follow-up with her primary care physician or Dr. Ma in 3 to 5 days. Patient understood and was agreeable with the plan. All questions were answered. Disposition: Discharge home Impression: 1. Chest pain This note was generated with [employer] dictation software. It may contain incorrect words, spelling, and punctuation that were not noted in review of the chart prior to signing ED Disposition - Plan for ED Patient: Disposition: Home or Assisted Living Diagnosis: Chest pain of uncertain etiology Instructions: ED Chest Pain, Uncertain Cause Referrals: Care Physician,No Primary [Primary Care Provider] - 5-7 Days Yong Ma MD [STAFF PHYSICIAN] - 5-7 Days
[2020-05-03 13:28] VITALS: BP 115/74; PULSE 93; RESP 16; O2SAT 97
== END 2020-05-03 13:37 | disposition home or self-care (01) ==
PROVIDERS: Emergency Provider Emergency Medicine
DX: R07.9 Chest pain, unspecified (principal); M54.9 Dorsalgia, unspecified; M54.2 Cervicalgia; R06.00 Dyspnea, unspecified; R00.2 Palpitations; E11.9 Type 2 diabetes mellitus without complications; I25.2 Old myocardial infarction; Z82.49 Family history of ischemic heart disease and other diseases of the circulatory system
CPT/HCPCS: 71045; 80048; 84484; 85025; 87426; 93005; 96374; 99285; A4216

== ENCOUNTER 2020-05-04 15:34 | Observation (INO) | payer MEDICAID, SELFPAY ==
[2020-05-03 11:08] VITALS: BMI 30.5
[2020-05-04] VITALS (11 sets, daily range): BP systolic 116–150; BP diastolic 68–86; PULSE 87–92; RESP 16–23; TEMP 36.6–37; O2SAT 92–100; BMI 30.5; BMI 33.5
--- NOTE | 2020-05-04 16:02 | EKG12_ITS ---
Test Reason : CP ADMIT Blood Pressure : / mmHG Vent. Rate : 085 BPM Atrial Rate : 085 BPM P-R Int : 164 ms QRS Dur : 106 ms QT Int : 418 ms P-R-T Axes : 047 002 054 degrees QTc Int : 497 ms Normal sinus rhythm Low Voltage QRS (Limb Leads) Poor R- wave Progression Anteroseptal RI, age undetermined, cannot be excluded Confirmed by CECILIA MITCHELL, YUNIOR ([id number]), design editor KITTY BURKETT ([id number]) on 05/06/2020 10:44:34 AM Referred By: DR SAGE Confirmed By:YUNIOR BROOKS MD
[2020-05-04 16:24] LABS: Absolute Lymphocyte Count 1.73 X10^3/uL (0.83-4.51); Basophil# 0.03 X10^3/uL; Basophil% 0.5 % (0-1); Eosinophil# 0.12 X10^3/uL; Eosinophils% 1.9 % (0-5); Hematocrit 35.6 % (37-47); Hemoglobin 11.9 g/dL (12.0-15.0); Lymphocyte # 1.73 X10^3/ul (4.0); Lymphocyte % 27.5 % (19-41); Mean Corp Hgb Conc 33.4 g/dL (32-36); Mean Corpuscular Hgb 28.7 pg (27.0-32.0); Mean Corpuscular Volume 85.8 fL (81-99); Mean Platelet Vol. 9.8 fl (6.2-12.0); Monocyte# 0.35 X10^3/uL; Monocyte% 5.6 % (0-10); NRBC Flagged by Analyzer 0 % (0-5); Neutrophil # 4.04 X10^3/uL (2.7-7.7); Neutrophil % 64.3 % (47-70); Platelet Count 312 K/mm3 (150-450); RBC Distribution Width CV 13.1 % (11.6-14.6); RBC Distribution Width SD 41.1 fl (35.1-43.9); Red Blood Count 4.15 M/mm3 (4.2-5.4); White Blood Count 6.3 K/mm3 (4.4-11.0)
--- NOTE | 2020-05-04 16:26 | ED.VISSUMM ---
- ER Visit Summary Date of Service: 05/04/20 Chief Complaint: Chest pain and syncopal episode History of Present Illness: The patient is a 40 F who presents with chest pain and a syncopal episode. Patient states she has been having the chest pain for the past few days. Patient was seen here yesterday for the chest pain. 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 Patient states that today she passed out. Patient states she felt palpitations and lightheaded prior to passing out. Patient states this feels similar to symptoms she had before her previous STEMI. Patient admits to some shortness of breath that is worse with any exertion. Patient states her symptoms improved with rest. Patient admits to nausea but denies any vomiting. Physical Examination: Vital signs are stable. Patient is afebrile. Patient is in no acute distress. Oral mucosa is pink and moist. Neck is supple. Trachea is midline. There is no JVD noted. Heart was regular rate and rhythm. Lungs are clear and equal bilaterally. Abdomen is soft. Bowel sounds are normal. There is no tenderness. There is no rebound or guarding noted. Skin is warm dry. Cranial nerves II through XII are intact. There are no focal motor or sensory deficits noted. Extremities are intact. There is no calf tenderness or edema. Test Results: EKG was obtained. On my interpretation, there is a normal sinus rhythm with a rate of 89. There are no acute ST or T wave changes. This was unchanged compared to previous EKG from yesterday and unchanged compared to previous EKG dated 02/11/2020. Portable 1 view chest x-ray was obtained. On my interpretation, lung ambriz are clear. There is normal cardiac silhouette. Bony thorax is normal. There is no acute process noted. Radiologist also interpreted the x-ray and agrees. CBC was obtained and was essentially within normal limits. Basic metabolic profile showed an elevated glucose of 266 but was otherwise normal. Troponin was normal. Emergency Department Course and Treatment: Patient was given aspirin here. Patient states her pain was improving with rest. Patient was feeling better on reevaluation. Case was discussed with Dr. Ma. He will cath the patient tomorrow. Case was discussed with the hospitalist. He will admit the patient to his service. Patient understood and was agreeable with the plan. All questions were answered. Disposition: Admit to hospital Impression: 1. Chest pain 2. History of coronary artery disease 3. Syncope This note was generated with [employer] dictation software. It may contain incorrect words, spelling, and punctuation that were not noted in review of the chart prior to signing ED Disposition - Plan for ED Patient: Disposition: Acute Care Hospital [facility] Diagnosis: Chest pain, History of coronary artery stent placement, Syncope
--- NOTE | 2020-05-04 16:30 | RAD_ITS ---
STUDY: X-RAY CHEST REASON FOR EXAM: Female, 40 years old. chest pain, seen recently for same TECHNIQUE: Single AP portable view of the chest. COMPARISON: 05/03/2020 FINDINGS: The lungs are clear and expanded. There is no demonstrated pleural abnormality. Normal size heart. Normal mediastinum and charlene. Normal visualized pulmonary arteries. Normal visualized aortic arch and descending thoracic aorta. Normal visualized thoracic spine. Normal visualized ribs, clavicles, and shoulders. There is no demonstrated abnormality of the visualized soft tissue structures of the upper abdomen. RAD/Chest 1 View (Portable) IMPRESSION: Normal x-ray examination of the chest. Electronically Signed: Francois Tay MD at 16:41 EST Tel , Service support ,
[2020-05-04 16:39] LABS: Anion Gap 9 (5-15); BUN 11 mg/dL (7-18); BUN/Creat Ratio 14.9 RATIO (10-20); Calcium,Total 9.1 mg/dL (8.5-10.1); Chloride 102 mmol/L (98-107); Creatinine, Serum 0.74 mg/dL (0.55-1.02); EST Glomerular Filtration Rate 93 mL/min (>60); Est Glom Filt Rate - Afr Amer 113 mL/min (>60); Estimated Creatinine Clearance 99.26 ml/min; Glucose 266 mg/dL (74-106); Potassium 3.7 mmol/L (3.5-5.1); Sodium Level 136 mmol/L (136-145)
--- NOTE | 2020-05-04 18:09 | PCM.HP.STD ---
Problem List (1) Syncope Status: Acute (2) Chest pain Status: Acute (3) Chronic systolic (congestive) heart failure Status: Chronic (4) Ischemic cardiomyopathy Status: Chronic (5) Old anterior wall myocardial infarction Status: Chronic (6) History of coronary artery stent placement Status: Chronic Comment: [id number] and Mid LAD 01/2014, PCI-INOCENCIA-Mid RCA 02/2014 (7) Essential (primary) hypertension Status: Chronic (8) Hyperlipidemia Status: Chronic Qualifiers: History of Present Illness Date of Admission: 05/04/20 Chief Complaint: chest pain. syncope The patient is a 40 year old F presents with chest pain. Chest pain has been ongoing over the past few weeks. Chest pain is midsternal going up into her shoulder cough associated with dyspnea, diaphoresis and nausea. Patient states that pain is [employer] and felt similar to when she started having chest pain prior to her ST elevation myocardial infarction in the past. Patient was seen here in the emergency room and had a negative work-up and plan was to follow-up with cardiology, however today, patient was up and ambulating and then passed out. So she presented to the emergency room. Emergency room physician spoke with cardiology who would see the patient in consultation and plan on doing a left heart catheterization on the 6. Patient stated that her blood sugar prior to the syncopal episode was in the 100s and afterwards was in the 300s. [] Past Medical History Past Medical History (Chronic Problems): Chronic Problems (Last Reviewed 12/05/18 @ 00:[address] Uriah Nicole MD) Chronic systolic (congestive) heart failure (Chronic) Ischemic cardiomyopathy (Chronic) Old anterior wall myocardial infarction (Chronic) History of coronary artery stent placement (Chronic 02/2014) [id number] and Mid LAD 01/2014, PCI-INOCENCIA-Mid RCA 02/2014 Essential (primary) hypertension (Chronic) Hyperlipidemia (Chronic) Medical History: Medical History (Last Updated 05/04/20 @ 18:[address] Gus Griffin DO) Chronic systolic (congestive) heart failure (Chronic) I50.22 Ischemic cardiomyopathy (Chronic) I25.5 Old anterior wall myocardial infarction (Chronic) I25.2 Essential (primary) hypertension (Chronic) I10 Hyperlipidemia (Chronic) E78.5 Diabetes mellitus type 1 E10.9 Facial cellulitis L03.211 Anxiety and depression F41.9, F32.9 Type 2 diabetes mellitus E11.9 Facial cellulitis (Inactive) L03.211 Neck abscess (Inactive) L02.11 Syncope (Inactive) R55 Allergies perflutren [From Definity] Allergy (Severe, Verified 05/04/20 15:37) Anaphylaxis Iodinated Contrast Media [Iodinated Contrast Media - IV Dye] Allergy (Verified 05/04/20 15:37) Hives Penicillins Allergy (Verified 05/04/20 15:37) Rash Sulfa (Sulfonamide Antibiotics) Allergy (Verified 05/04/20 15:37) Hives Beta-Blockers (Beta-Adrenergic Bloc Adverse Reaction (Verified 05/04/20 15:37) Low blood pressure metformin Adverse Reaction (Verified 05/04/20 15:37) Upset Stomach nitroglycerin IV Allergy (Uncoded 05/04/20 15:37) DROPS HR nitro drips per pt will drop bp quick and will bottom out Home Medications: Ambulatory Orders Medication Instructions Recorded Aspirin [Aspirin, Baby] 81 mg PO DAILY 03/04/15 Sertraline HCl [Zoloft] 200 mg PO DAILY 11/25/15 isosorbide mononitrate 30 mg 30 mg PO DAILY #90 tab 11/07/17 tablet,extended release 24 hr Insulin Lispro [Humalog KwikPen] 26 units SQ TIDCM 05/02/18 Insulin Lispro [Humalog KwikPen] See Protocol SQ TIDCM 05/02/18 Gabapentin [Neurontin] 300 mg PO DAILY 06/16/18 Ondansetron [Zofran Odt] 4 mg PO Q8H PRN PRN #10 tab 06/16/18 Gabapentin [Neurontin] 1,200 mg PO QHS 12/04/18 Acyclovir 400 mg PO TID 09/13/19 Insulin Degludec [Tresiba] 76 unit SQ QHS 09/13/19 Metoprolol Tartrate [Lopressor 50 mg PO DAILY 09/13/19 (beta zita)] clopidogrel 75 mg tablet See Rx Instructions .ROUTE 09/18/19 .COMPLEX #90 tab atorvastatin 80 mg tablet 80 mg PO QHS #90 tab 09/24/19 magnesium oxide 400 mg (241.3 mg 400 mg PO BID #60 tab 09/29/19 magnesium) tablet ranolazine 1,000 mg 1,000 mg PO BID #60 tab 11/03/19 tablet,extended release,12 hr Amitriptyline HCl 12.5 mg PO QHS 02/11/20 nitroglycerin 0.4 mg sublingual 0.4 mg SUBLINGUAL Q5M PRN #1 bottle 05/04/20 tablet Surgical History: Surgical History (Last Reviewed 05/04/20 @ 18:[address] Gus Griffin DO) History of coronary artery stent placement (Chronic) Onset Date: 02/2014 Z95.5 [id number] and Mid LAD 01/2014, PCI-INOCENCIA-Mid RCA 02/2014 History of left heart catheterization Onset Date: 12/15/16 Z98.890 History of lumbar fusion Z98.1 History of tubal ligation Z98.51 Surgical History: angioplasty, - - PCI x2, bilateral tubal ligation, back surgery with L4-L5 rods and screws in place, tonsillectomy. 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 Gus Griffin DO) Father Cancer Brother Diabetes Sister Diabetes Heart disease Hypertension High cholesterol Mother Heart disease High cholesterol Hypertension CVA (cerebral vascular accident) Grandmother Heart disease High cholesterol Hypertension Grandfather Heart disease High cholesterol Hypertension CVA (cerebral vascular accident) History Items: Heart Disease Maternal Family History: Family History (Last Reviewed 05/04/20 @ 18:[address] Gus Griffin DO) Father Cancer Brother Diabetes Sister Diabetes Heart disease Hypertension High cholesterol Mother Heart disease High cholesterol Hypertension CVA (cerebral vascular accident) Grandmother Heart disease High cholesterol Hypertension Grandfather Heart disease High cholesterol Hypertension CVA (cerebral vascular accident) History Items: Stroke Review of Systems Constitutional: Reports: Malaise, - - Denies any COVID-19 contacts. Denies: Anorexia, Chills, Fever, Night Sweats Eyes: Denies: Blurred vision, Double vision HEENT: Denies: Head Aches, Sinus Congestion, Sinus Drainage Cardiovascular: Reports: Chest Pressure, Palpitations. Denies: Chest Pain Respiratory: Reports: Shortness of breath upon exertion. Denies: Cough, Shortness of breath at rest, Sputum production Gastrointestinal: Denies: Abdominal Pain, Nausea, Vomiting Genitourinary: Denies: Dysuria - All review of systems were negative except as mentioned above in the history of present illness and the other review of systems. Comment: All review of systems were negative except as mentioned above in the history of present illness and the other review of systems. VTE Information - Inpt Only VTE Present on Admission: No VTE Mechan Device Prophylaxis: None VTE Pharm Prophylaxis ordered?: No Reason prophylaxis not ordered:: Treatment Not Indicated Patient Problems: Active and Suspected Problems (Last Reviewed 12/05/18 @ 00:[address] Uriah Nicole MD) Chest pain (Acute) - Physical Exam Vitals/I&O's: Vital Signs Temp Pulse Resp BP Pulse Ox 36.6 C 89 23 H 117/80 96 05/04/20 18:06 05/04/20 18:06 05/04/20 18:06 05/04/20 18:06 05/04/20 18:06 Oxygen Delivery Method Room Air Weight: 88.451 kg Body Mass Index (BMI) 30.5 Finger Stick Blood Glucose 238 General: Alert, Cooperative, No apparent distress HEENT: Atraumatic, Normocephalic Oral: Moist Mucosa, No Gingival or Mucosal Lesions/ Ulcerations Neck: No Nodes, Thyroid Normal Size and Texture Lungs: Clear to auscultation, Normal air movement, No rhonchi, No wheeze Cardiovascular: Regular rate, Regular Rhythm, Normal S1, Normal S2, No murmurs Abdomen: Bowel Sounds Present, Soft, Non Tender, Non-Distended, No Hepato-splenomegaly Extremities: No edema, No Calf Tenderness Psych/Mental Status: Normal Affect, Appropriate Laboratory Results 05/04/20 15:40: WBC 6.3, RBC 4.15 L, Hgb 11.9 L, Hct 35.6 L, MCV 85.8, MCH 28.7, MCHC 33.4, RDW Std Deviation 41.1, RDW Coeff of [place] 13.1, Plt Count 312, MPV 9.8, Immature Gran % (Auto) 0.200, Neut % (Auto) 64.3, Lymph % (Auto) 27.5, Mcintosh % (Auto) 5.6, Eos % (Auto) 1.9, Baso % (Auto) 0.5, Absolute Neuts (auto) 4.0, Absolute Lymphs (auto) 1.73, Nucleated RBC % 0 05/04/20 15:40: Sodium 136, Potassium 3.7, Chloride 102, Carbon Dioxide 25.0, Anion Gap 9, BUN 11, Creatinine 0.74, Estim Creat Clear Calc 99.26, Est GFR (MDRD) Af Amer 113, Est GFR (MDRD) Non-Af 93, BUN/Creatinine Ratio 14.9, Glucose 266 H, Calcium 9.1, Troponin I < 0.015 Chest x-ray personally reviewed and showed no infiltrate nor pulmonary vascular congestion. EKG reviewed and showed normal sinus rhythm without acute changes. Assessment/Plan All Active Problems (Last Reviewed 12/05/18 @ 00:[address] Uriah Nicole MD) Chest pain (Acute) Syncope (Acute) Lumbar stenosis (Resolved) 1. Chest pain/stable angina: Discussed with Dr. Ma, and the plan is to perform left heart catheterization on the 6. Patient be n.p.o. after midnight. In the meantime, we will cycle troponins and check a fasting lipid panel in the morning. 2. Syncope: May be vasovagal. Monitor the patient for any evidence of any arrhythmias. Was not due to hypoglycemic because the patient was if anything hyperglycemic. 3. PVCs: Reviewed the patient on telemetry and patient did have some infrequent PVCs. Patient does have a feeling of palpitations whether not related these PVCs were underlying anxiety is unclear. 4. Diabetes mellitus type 1: Patient on insulin. Resume her home insulin as well as sliding scale insulin. Patient is a type I diabetic and a type II diabetic. 5. VTE prophylaxis: Low risk as she is observation status and not indicated at this time. OBSV E&M: 31991 Initial observation care L2
--- NOTE | 2020-05-04 19:27 | EKG12_ITS ---
Test Reason : CP Blood Pressure : / mmHG Vent. Rate : 089 BPM Atrial Rate : 089 BPM P-R Int : 160 ms QRS Dur : 100 ms QT Int : 394 ms P-R-T Axes : 036 -19 047 degrees QTc Int : 479 ms Normal sinus rhythm Anterolateral infarct , age undetermined Abnormal ECG Confirmed by SARA MITCHELL, DAMON ([id number]), digital editor MITA HAN ([id number]) on 05/07/2020 8:36:24 AM Referred By: CALOS Confirmed By:DAMON RUIZ MD
[2020-05-04] MEDS: Ranolazine 500 MG Tablet 1000 MG PO (21:50)
[2020-05-04 21:51] LABS: Bedside Glucose 161 mg/dL (70-110)
[2020-05-04] MEDS: Gabapentin 600 MG Tablet 1200 MG PO (21:51)
[2020-05-04] MEDS: Atorvastatin Calcium 80 MG Tablet PO (21:51)
[2020-05-04] MEDS: Acyclovir 200 MG Capsule 400 MG PO (21:52)
[2020-05-04] MEDS: Magnesium Chloride 64 MG Delay Rel.Tablet 128 MG PO (21:52)
[2020-05-04] MEDS: Morphine 2 MG/ML Syringe IV (22:03)
[2020-05-04] MEDS: Amitriptyline 25 MG Tablet 12.5 MG PO (22:03)
[2020-05-04] MEDS: 0.9% Saline Lock 10 ML Syringe IV (22:04)
[2020-05-04] MEDS: Ondansetron 4 MG/2 ML Vial IV (22:04)
[2020-05-05] VITALS (19 sets, daily range): BP systolic 95–129; BP diastolic 61–86; PULSE 77–92; RESP 14–18; TEMP 36.4–36.7; O2SAT 95–100
[2020-05-05] MEDS: Acyclovir 200 MG Capsule 400 MG PO ×2 (06:54→12:47)
[2020-05-05] MEDS: Clopidogrel Bisulfate 75 MG Tablet PO (06:54)
[2020-05-05] MEDS: Aspirin 81 MG TAB.CHEW PO (06:55)
[2020-05-05] MEDS: 0.9% Saline Lock 10 ML Syringe IV (07:03)
--- NOTE | 2020-05-05 07:04 | ED.RN ---
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
[2020-05-05 07:06] LABS: Bedside Glucose 194 mg/dL (70-110)
--- NOTE | 2020-05-05 07:23 | CON.PCM_ITS ---
Reason for Consult Date of Consultation: 05/05/20 Reason for Consultation: Chest discomfort and syncope History of Present Illness: The patient is a 40 year old F with a past medical history significant for coronary artery disease status post drug-eluting stent to the proximal and mid LAD in January 2014 in the mid right coronary artery which was placed in February 2017. In November 2018 she underwent a cardiac catheterization which demonstrated patency of her stents. She also has a history of hypertension, hyperlipidemia, cardiomyopathy which is resolved. She presented to the hospital in [place] a few days ago with chest discomfort she apparently had blood chemistries drawn including a troponin which was apparently normal. The next day she complained of more chest discomfort called her office subsequently went to the ER here where a troponin was done with delta troponin both of which were normal. She was discharged home for outpatient cardiac catheterization to be scheduled. She presented to the emergency room yesterday with an apparent syncopal episode as well as chest discomfort. It was decided to admit her and further her management. [] Past Medical History Allergies/Adverse Reactions: Allergies perflutren [From Definity] Allergy (Severe, Verified 05/04/20 15:37) Anaphylaxis Iodinated Contrast Media [Iodinated Contrast Media - IV Dye] Allergy (Verified 05/04/20 15:37) Hives Penicillins Allergy (Verified 05/04/20 15:37) Rash Sulfa (Sulfonamide Antibiotics) Allergy (Verified 05/04/20 15:37) Hives Beta-Blockers (Beta-Adrenergic Bloc Adverse Reaction (Verified 05/04/20 15:37) Low blood pressure metformin Adverse Reaction (Verified 05/04/20 15:37) Upset Stomach nitroglycerin IV Allergy (Uncoded 05/04/20 15:37) DROPS HR nitro drips per pt will drop bp quick and will bottom out Home Medications: Ambulatory Orders Medication Instructions Recorded Aspirin [Aspirin, Baby] 81 mg PO DAILY 03/04/15 Sertraline HCl [Zoloft] 100 mg PO DAILY 11/25/15 isosorbide mononitrate 30 mg 30 mg PO DAILY #90 tab 11/07/17 tablet,extended release 24 hr Insulin Lispro [Humalog KwikPen] 26 units SQ TIDCM 05/02/18 Insulin Lispro [Humalog KwikPen] See Protocol SQ TIDCM 05/02/18 Gabapentin [Neurontin] 300 mg PO DAILY 06/16/18 Ondansetron [Zofran Odt] 4 mg PO Q8H PRN PRN #10 tab 06/16/18 Gabapentin [Neurontin] 1,200 mg PO QHS 12/04/18 Acyclovir 400 mg PO TID 09/13/19 Insulin Degludec [Tresiba] 76 unit SQ QHS 09/13/19 Metoprolol Tartrate [Lopressor 50 mg PO DAILY 09/13/19 (beta zita)] atorvastatin 80 mg tablet 80 mg PO QHS #90 tab 09/24/19 magnesium oxide 400 mg (241.3 mg 400 mg PO BID #60 tab 09/29/19 magnesium) tablet Amitriptyline HCl 12.5 mg PO QHS 02/11/20 Clopidogrel Bisulfate [Clopidogrel] 75 mg PO DAILY 05/04/20 Ranolazine [Ranolazine ER] 1,000 mg PO BID 05/04/20 Sertraline HCl [Zoloft] 50 mg PO DAILY 05/04/20 nitroglycerin 0.4 mg sublingual 0.4 mg SUBLINGUAL Q5M PRN #1 bottle 05/04/20 tablet Past Medical History (Chronic Problems): Chronic Problems (Last Updated 05/04/20 @ 18:[address] Gus Griffin DO) Chronic systolic (congestive) heart failure (Chronic) Ischemic cardiomyopathy (Chronic) Old anterior wall myocardial infarction (Chronic) History of coronary artery stent placement (Chronic 02/2014) [id number] and Mid LAD 01/2014, PCI-INOCENCIA-Mid RCA 02/2014 Essential (primary) hypertension (Chronic) Hyperlipidemia (Chronic) Surgical History: angioplasty, - - PCI x2, bilateral tubal ligation, back surgery with L4-L5 rods and screws in place, tonsillectomy. 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 Gus Griffin DO) Father Cancer Brother Diabetes Sister Diabetes Heart disease Hypertension High cholesterol Mother Heart disease High cholesterol Hypertension CVA (cerebral vascular accident) Grandmother Heart disease High cholesterol Hypertension Grandfather Heart disease High cholesterol Hypertension CVA (cerebral vascular accident) History Items: Heart Disease Maternal Family History: Family History (Last Reviewed 05/04/20 @ 18:[address] Gus Jopperi, DO) Father Cancer Brother Diabetes Sister Diabetes Heart disease Hypertension High cholesterol Mother Heart disease High cholesterol Hypertension CVA (cerebral vascular accident) Grandmother Heart disease High cholesterol Hypertension Grandfather Heart disease High cholesterol Hypertension CVA (cerebral vascular accident) History Items: Stroke Smoking Status: Never smoker Alcohol: None Drugs: None Review of Systems - Review of Systems General: Denies: Fever, Night Sweats, Fatigue HEENT: Denies: Vision Change Cardiovascular: Reports: Chest Discomfort, Chest Discomfort at Rest, Syncope. Denies: Shortness of Breath, Orthopnea, PND, Peripheral Edema, Palpitations, Lightheadedness, Dizziness, Near Syncope Respiratory: Denies: Cough, Sputum Production, Hemoptysis Gastrointestinal: Denies: Hematemesis, Hematochezia, Melena Genitourinary: Denies: Dysuria, Hematuria Skin: Denies: Rash Neurological: Denies: Dizziness Psychiatric: Denies: Anxiety Endocrine: Denies: Unexplained Weight Loss Hematologic/ Lymphatic: Denies: Anemia Subjectve: Pleasant lady in no distress Objective: Vital Signs Temp Pulse Resp BP Pulse Ox 97.6 F L 86 18 129/86 H 99 05/05/20 07:01 05/05/20 07:01 05/05/20 07:01 05/05/20 07:01 05/05/20 07:01 Oxygen Flow Rate (L/min) 3 Oxygen Delivery Method Room Air Weight: 213 lb 13.574 oz Body Mass Index (BMI) 33.5 Finger Stick Blood Glucose 238 Intake and Output for Last 24 Hours 05/03/20 05/04/20 05/05/20 23:59 23:59 23:59 Intake Total 480 / 480 Balance 480 / 480 General: Awake, Alert, Oriented x 3 HEENT: PERRL, EOMI, Sclera Non Icteric Neck: Supple, Good ROM, No Lymph Node Enlargement Lungs: Clear to auscultation Cardiovascular: Regular Rhythm, Normal S1, Normal S2, No Murmurs, No Rubs, No Gallops Vascular: No Carotid Bruits, Normal Femoral Pulses, Normal Radial Pulses, Normal Dorsalis Pedal Pulse, Normal Posterior Tibial Pulses Abdomen: Bowel Sounds Present, Soft, Non Tender, No HSM, No Organomegaly Extremities: No Cyanosis, No Clubbing, No edema Musculoskeletal: No Erythema Skin: No Rashes Lymphatic: No Lymph Node Enlargement Neurological: No Focal Motor or Sensory Deficit 05/04/20 15:40: WBC 6.3, RBC 4.15 L, Hgb 11.9 L, Hct 35.6 L, MCV 85.8, MCH 28.7, MCHC 33.4, Plt Count 312, MPV 9.8, Immature Gran % (Auto) 0.200, Neut % (Auto) 64.3, Lymph % (Auto) 27.5, [place] % (Auto) 5.6, Eos % (Auto) 1.9, Baso % (Auto) 0.5, Absolute Neuts (auto) 4.0, Nucleated RBC % 0 05/04/20 15:40: Sodium 136, Potassium 3.7, Chloride 102, Carbon Dioxide 25.0, Anion Gap 9, BUN 11, Creatinine 0.74, Est GFR (MDRD) Af Amer 113, Est GFR (MDRD) Non-Af 93, BUN/Creatinine Ratio 14.9, Glucose 266 H, Calcium 9.1, Troponin I < 0.015 05/04/20 20:48: Troponin I < 0.015 05/04/20 23:30: Troponin I < 0.015 Rhythm: EKG: Normal sinus rhythm with no acute changes ECHO: Stress Test: Cardiac Cath: PCI: CT Surgery: Holter monitor: EPS: PPM: CXR: Chest CT Scan: Assessment/Plan 1. Chest pain-recurrent atypical * Patient has known coronary artery disease and has had at least 3 interactions with a healthcare system in as many days for the same. Due to her previous history it would be prudent for us to assess her to make sure that she does not have any coronary obstruction. The risk benefits alternatives have been explained to her she understands and agrees to proceed. Depending on the findings further recommendations will be made. * Cardiac catheterization today demonstrated the following: Normal left main coronary artery. Left anterior descending artery with previously placed stents noted to be patent. Left circumflex artery with no significant disease. First and second diagonal vessels with ostial 60% stenosis unchanged from previously. Dominant right coronary artery with previously placed stent patent and a proximal area of a smooth 60 to 70% stenosis. There was no change with intracoronary nitroglycerin. Mildly reduced left ventricular systolic dysfunction with mild anterior apical hypokinesis and mild inferior apical hypokinesis. Based on the above angiographic findings the patient was referred for either intervention or further evaluation of hemodynamic monitoring. Patient underwent an FFR and IFR of the proximal right coronary artery and it was felt that this was not significant to be stented. Medical therapy should therefore be nathan nued. Would recommend increasing the isosorbide to 60 mg once a day. 2. Cardiomyopathy * She does have a history of cardiomyopathy which appears to have resolved. We will continue to follow her. * * Thank you for allowing me to participate in the care of your patient. Please don't hesitate to call if any issues arise.
[2020-05-05 07:34] LABS: Internal QC Validated? YES +Cl - CLEAR BKGD; Pregnancy, Urine Negative Negative
[2020-05-05 08:20] LABS: Hemoglobin A1c 11.1 % (3.8-5.6)
--- NOTE | 2020-05-05 09:24 | CL.D_ITS ---
Patient Name: LATA STONE Study Date: 05/05/2020 Performing: Yong Ma MD Ht: 66.92 inches 170 cm : 1980 Wt: 213.85 lbs 97 kg Age: 40 Gender: female BSA: 2.08 PROCEDURE(S) PERFORMED [id number], CORONARY OR GRAFT, INITIAL VESSEL CLINICAL PROFILE AND INDICATIONS Indications: Worsening Angina Heart Failure: None Stress/Imaging Stress/Image Study Performed: No CAD Presentations: Unstable angina. CONCLUSIONS She had a coronary artery disease with previously placed stent in the left anterior descending artery and mid right coronary artery noted to be patent. There is a smooth 70% stenosis noted in the proxi mal right coronary artery which was unresponsive to 200 mcg of intracoronary nitroglycerin. RECOMMENDATIONS Staged for FFR Referred for immediate PCI DESCRIPTION OF PROCEDURE The patient arrived to the procedure lab. The risks and benefits of the procedure as well as a full d escription of our services here and current unavailability of surgical backup were fully explained to the patient and/or their significant other prior to the catheterization. The Timeout was completed, verifying the correct patient and procedure. The patient's procedural site was prepped and draped in the usual fashion. Local anesthetic was given subcutaneously to right radial region with Lidocaine 2% . Using a modified Seldinger technique, arterial access was obtained via the right radial artery, a 6 Fr sheath was inserted. Right Coronary Artery selective angiography was then performed in multiple v iews using a 5 Fr. 4.0 [place] catheter. Left Coronary Artery selective angiography was performed in mu ltiple views using a 5 Fr. 4.0 [place] catheter. Left Ventriculography was performed in CABRERA projection using a 5 Fr. Pig[place] catheter. LV to AO pullback pressures were then recorded. CORONARY ANGIOGRAPHY DOMINANCE: Right Dominant LEFT HEART ASSESSMENT Anterior Hypokinesis - Mild. Inferior Apical Hypokinesis - Moderate Depressed Left Ventricular systolic function LEFT MAIN: Angiographically normal LEFT ANTERIOR DESCENDING ARTERY: MID LAD: Previously placed stent is patent DIAGONAL 1: Ostial - 60 % Stenosis DIAGONAL 2: Ostial - 60 % Stenosis CIRCUMFLEX ARTERY: No significant disease noted RIGHT CORONARY ARTERY: PROX RCA: 70 % Stenosis MID RCA: Previously placed stent is patent COMPLICATIONS PROCEDURE MEDICATIONS Versed 1 mg IV Fentanyl 50 mcg IV Versed 1 mg IV Versed 1 mg IV Oxygen: 2 L/min via nasal cannula Benadryl 25 mg IV @ 05/05/2020 08:32:30 Heparin diluted in 23cc Heparinized saline. Patient given 10cc IA of this solution. 05/05/2020 08:54:1 9 Nitro 200 mcg IC 05/05/2020 09:02:44 Solu-cortef 100 mg IV 05/05/2020 08:32:17 SUMMARY OF HEMODYNAMIC DATA Time AIR REST ECG 08:21:11 AO 106/63 (83) SA 08:56:47 LV 101/-2, 4 09:11:20 LV 100/-3, 5 09:11:27 LV 105/4, 13 09:12:58 LVp 103/3, 12 09:13:07 AOp 99/61 (79) 09:13:12 Signed By Yong Ma MD On 05/05/2020 09:23:22 Yong Ma MD
--- NOTE | 2020-05-05 11:31 | PRO.PCM_ITS ---
Problem List (1) Chest pain Status: Acute Procedure Report Date of Procedure: 05/05/20 Procedure: IFR and FFR of the right coronary artery Clinical history: This is a 40-year-old white female has had frequent recurrence of chest pain and history of stenting of the left anterior descending and right coronary artery. Cardiac catheterization was performed by and found to have borderline proximal right coronary artery stenosis. IFR and FFR measurement are therefore indicated Indication: As stated above Heart failure: None Stress/imaging: None CAD presentation: Stated above Summary: #1 IFR measurement was 0.92 suggestive of borderline hemodynamically significant lesion of the proximal right coronary artery #2 FFR with IV adenosine was performed and showed a value of 0.89 suggestive of hemodynamically insignificant proximal right coronary artery stenosis Procedure Details The risks, benefits, complications, treatment options, and expected outcomes were discussed with the patient. The patient and/or family concurred with the proposed plan, giving informed consent. 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 Patient was further sedated with IV conscious sedation. Subject was prepped and draped in the usual manner. Using the modified Seldinger access technique, a 6 [place] sheath was placed in the right radial. Standard diagnostic catheters were used. Exchanges were performed over J-wire. At the end of the procedures, all catheters and sheaths were removed and bleeding was stopped with closure device using TR band Findings: Moderate Sedation: Conscious sedation was administered under my supervision with cardiorespiratory monitoring performed by independent and qualified nursing personnel. Medications and dosages are recorded separately in the electronic medical record. Anatomy: Right Coronary Artery: Right coronary artery was normal to small sized vessel, there was a 50% stenosis of the proximal right coronary artery. IFR was performed first and followed by FFR with IV adenosine. Insignificant values above procedure were obtained. No coronary intervention is needed at this point Estimated Blood Loss: Minimal} Complications: None Disposition condition: Stable
[2020-05-05] MEDS: Ranolazine 500 MG Tablet 1000 MG PO (12:45)
[2020-05-05] MEDS: Magnesium Chloride 64 MG Delay Rel.Tablet 128 MG PO (12:45)
[2020-05-05] MEDS: Gabapentin 300 MG Capsule PO (12:45)
[2020-05-05] MEDS: Sertraline 50 MG Tablet PO (12:46)
[2020-05-05] MEDS: Isosorbide Mononitrate 30 MG Tablet PO (12:46)
[2020-05-05] MEDS: Sertraline 100 MG Tablet PO (12:47)
[2020-05-05 13:05] LABS: Bedside Glucose 233 mg/dL (70-110)
[2020-05-05] MEDS: Insulin Lispro 100 UNIT/ML INSULN.PEN 26 UNIT SC ×2 (13:46→18:12)
[2020-05-05] MEDS: Insulin Lispro 100 UNIT/ML INSULN.PEN SC ×2 (13:46→18:11)
--- NOTE | 2020-05-05 15:36 | PCM.DC ---
- Discharge Diagnoses Current Active Problems: Current Active and Chronic Problems (Last Updated 05/04/20 @ 18:[address] Gus Griffin, DO) Chest pain (Acute) Syncope (Acute) Chronic systolic (congestive) heart failure (Chronic) Ischemic cardiomyopathy (Chronic) Old anterior wall myocardial infarction (Chronic) History of coronary artery stent placement (Chronic 02/2014) [id number] and Mid LAD 01/2014, PCI-INOCENCIA-Mid RCA 02/2014 Essential (primary) hypertension (Chronic) Hyperlipidemia (Chronic) You will use the following diet at home:: Calorie/Carbohydrate Controlled (specify 1200, 1400, etc) - resume diabetic diet Your food should be the consistency of: Regular Your liquids should be the consistency of: Regular/Thin Discharge Activity: Return to Normal Activity Weight Bearing Status: Full weight bearing Allergies/Adverse Reactions: Allergies perflutren [From Definity] Allergy (Severe, Verified 05/04/20 15:37) Anaphylaxis Iodinated Contrast Media [Iodinated Contrast Media - IV Dye] Allergy (Verified 05/04/20 15:37) Hives Penicillins Allergy (Verified 05/04/20 15:37) Rash Sulfa (Sulfonamide Antibiotics) Allergy (Verified 05/04/20 15:37) Hives Beta-Blockers (Beta-Adrenergic Bloc Adverse Reaction (Verified 05/04/20 15:37) Low blood pressure metformin Adverse Reaction (Verified 05/04/20 15:37) Upset Stomach nitroglycerin IV Allergy (Uncoded 05/04/20 15:37) DROPS HR nitro drips per pt will drop bp quick and will bottom out Medications to take at Discharge Aspirin [Aspirin, Baby] 81 mg PO DAILY 03/04/15 Sertraline HCl [Zoloft] 100 mg PO DAILY 11/25/15 Insulin Lispro [Humalog KwikPen] 26 units SQ TIDCM 05/02/18 Insulin Lispro [Humalog KwikPen] See Protocol SQ TIDCM 05/02/18 Gabapentin [Neurontin] 300 mg PO DAILY 06/16/18 Ondansetron [Zofran Odt] 4 mg PO Q8H PRN PRN #10 tab 06/16/18 Gabapentin [Neurontin] 1,200 mg PO QHS 12/04/18 Acyclovir 400 mg PO TID 09/13/19 Insulin Degludec [Tresiba] 76 unit SQ QHS 09/13/19 Metoprolol Tartrate [Lopressor (beta zita)] 50 mg PO DAILY 09/13/19 atorvastatin 80 mg tablet 80 mg PO QHS #90 tab 09/24/19 magnesium oxide 400 mg (241.3 mg magnesium) tablet 400 mg PO BID #60 tab 09/29/19 Amitriptyline HCl 12.5 mg PO QHS 02/11/20 Clopidogrel Bisulfate [Clopidogrel] 75 mg PO DAILY 05/04/20 Ranolazine [Ranolazine ER] 1,000 mg PO BID 05/04/20 Sertraline HCl [Zoloft] 50 mg PO DAILY 05/04/20 nitroglycerin 0.4 mg sublingual tablet 0.4 mg SUBLINGUAL Q5M PRN #1 bottle 05/04/20 Isosorbide Mononitrate [Imdur] 60 mg PO DAILY #30 tab 05/05/20 The following prescriptions were given: Isosorbide Mononitrate [Imdur] 60 mg PO DAILY #30 tab Transmission Status: Pending to [address] Primary Care Physician: Care Physician,No Primary [Primary Care Provider] - Test Results: Test results from this visit will be discussed in further detail at your follow-up appointment, if applicable. Please Follow Up With: Yong Ma MD When: 3-4 weeks Please Follow Up With: your apple peeler operator When: as soon as possible
[2020-05-05 18:26] LABS: Bedside Glucose 197 mg/dL (70-110)
--- NOTE | 2020-05-08 08:09 | PCM.DC.SUM ---
Discharge Date and Diagnosis - Problem List Patient Problems: Active and Suspected Problems (Last Updated 05/04/20 @ 18:[address] Gus Griffin DO) Chest pain (Acute) Syncope (Acute) Date of Admission: 05/04/20 Date of Discharge: 05/05/20 - Primary Discharge Diagnosis Acute Problems: Active Problems (Last Updated 05/04/20 @ 18:[address] Gus Griffin DO) #1 musculoskeletal chest pain #2 vasovagal syncope #3 type 1 diabetes-poorly controlled #4 ischemic cardiomyopathy #5 coronary artery disease - Secondary Discharge Diagnosis Chronic Problems: Chronic Problems (Last Updated 05/04/20 @ 18:[address] Gus Griffin DO) Chronic systolic (congestive) heart failure (Chronic) Ischemic cardiomyopathy (Chronic) Old anterior wall myocardial infarction (Chronic) History of coronary artery stent placement (Chronic 02/2014) [id number] and Mid LAD 01/2014, PCI-INOCENCIA-Mid RCA 02/2014 Essential (primary) hypertension (Chronic) Hyperlipidemia (Chronic) Hospital Course and Treatment Operations: None Procedures: Cardiac catheterization Summary of Care Provided: The patient is a 40 year old F was seen in the emergency room at [facility] with a chief complaint of chest pain and a syncopal episode. She had been seen in the emergency room 1 day prior for complaints of chest pain and was scheduled for an outpatient cardiac catheterization. Patient stated that she passed out and felt palpitations and lightheadedness prior to passing out. Patient has been complaining of chest pain on and off for the past several days. Work-up in the emergency room included an EKG which showed normal sinus rhythm with no ST or T wave changes, chest x-ray was obtained and it was unremarkable. CBC was ordered and was within normal limits, metabolic profile showed an elevated glucose of 266 but was otherwise normal, troponin was unremarkable. Patient was placed in observation status on PCU, cardiac enzymes were unremarkable, she was seen in consultation by cardiology and underwent a cardiac catheterization which was remarkable for nonocclusive coronary disease, there was noted to be a 70% stenosis of the right coronary artery, initially this was thought to need intervention but with further testing including fractional flow reserve, it was not felt to be necessary for intervention. On 05/05/2020, patient was seen and examined: On examination she appeared in good health and spirits, she does not appear to be in any distress. Vital signs as documented. Skin warm and dry and without overt rashes. Neck without JVD, thyroid appears normal, trachea is midline, neck is supple. Lungs clear, normal air movement was noted. Heart exam notable for regular rhythm, normal sounds and absence of murmurs, rubs or gallops. Abdomen unremarkable and without evidence of organomegaly, masses, or abdominal aortic enlargement, bowel sounds are present in all 4 quadrants, no abdominal tenderness was noted. Extremities nonedematous, no cyanosis was noted, no clubbing was noted. Neuro: Cranial nerves II through XII are grossly intact, no focal motor deficits were noted, sensation to light touch and pinprick is intact, motor exam 5/5 throughout. Psych: Patient is alert and oriented x3, she does not appear anxious or depressed, she does not appear agitated. This examiner spent approximately 30 minutes talking with the patient concerning her risk factors for coronary artery disease, her hemoglobin A1c on admission was 11.1 which indicates uncontrolled diabetes, I urged the patient to go back to her capacitor inspector and see her capacitor inspector personally-rather than the nurse practitioner in the practice-patient also talked about obtaining another opinion from a different bookmaker's clerk and I urged her to do that if she felt it was necessary. Patient was discharged in stable condition on 05/05/2020 Patient Problems: Active and Suspected Problems (Last Updated 05/04/20 @ 18:[address] Gus Griffin, DO) Chest pain (Acute) Syncope (Acute) - Physical Exam Vitals/I&O's: Vital Signs Temp Pulse Resp BP Pulse Ox 98.1 F 89 18 103/68 98 05/05/20 15:56 05/05/20 15:56 05/05/20 15:56 05/05/20 15:56 05/05/20 15:56 Oxygen Flow Rate (L/min) 1 Oxygen Delivery Method Room Air Weight: 97 kg Body Mass Index (BMI) 33.5 Finger Stick Blood Glucose 238 Discharge Activity: Return to Normal Activity Weight Bearing Status: Full weight bearing Home Medications: Medications to take at Discharge Aspirin [Aspirin, Baby] 81 mg PO DAILY 03/04/15 Sertraline HCl [Zoloft] 100 mg PO DAILY 11/25/15 Insulin Lispro [Humalog KwikPen] 26 units SQ TIDCM 05/02/18 Insulin Lispro [Humalog KwikPen] See Protocol SQ TIDCM 05/02/18 Gabapentin [Neurontin] 300 mg PO DAILY 06/16/18 Ondansetron [Zofran Odt] 4 mg PO Q8H PRN PRN #10 tab 06/16/18 Gabapentin [Neurontin] 1,200 mg PO QHS 12/04/18 Acyclovir 400 mg PO TID 09/13/19 Insulin Degludec [Tresiba] 76 unit SQ QHS 09/13/19 Metoprolol Tartrate [Lopressor (beta zita)] 50 mg PO DAILY 09/13/19 atorvastatin 80 mg tablet 80 mg PO QHS #90 tab 09/24/19 magnesium oxide 400 mg (241.3 mg magnesium) tablet 400 mg PO BID #60 tab 09/29/19 Amitriptyline HCl 12.5 mg PO QHS 02/11/20 Clopidogrel Bisulfate [Clopidogrel] 75 mg PO DAILY 05/04/20 Ranolazine [Ranolazine ER] 1,000 mg PO BID 05/04/20 Sertraline HCl [Zoloft] 50 mg PO DAILY 05/04/20 nitroglycerin 0.4 mg sublingual tablet 0.4 mg SUBLINGUAL Q5M PRN #1 bottle 05/04/20 Isosorbide Mononitrate [Imdur] 60 mg PO DAILY #30 tab 05/05/20 Following Prescriptions Were Given to Patient: Isosorbide Mononitrate [Imdur] 60 mg PO DAILY #30 tab Transmission Status: Received by [address] Primary Care Physician: Care Physician,No Primary [Primary Care Provider] - Please Follow Up With: Yong Ma MD When: 3-4 weeks Please Follow Up With: your capacitor inspector When: as soon as possible Disposition: Home Minutes spent on discharge:: 31 Patient Condition:: Stable Medical Necessity - Tobacco Use Smoking Status: Never smoker Meaningful Use Info Meaningful Use Diagnoses (Choose all that apply): None applicable OBSV E&M: 92366 Observation care discharge
== END 2020-05-05 18:35 | disposition home or self-care (01) ==
LOC: ED 17:54 → PCU 18:15
PROVIDERS: Internal Medicine Cardiovascular Disease; Emergency Provider Emergency Medicine; Visit Provider Internal Medicine
DX: R07.89 Other chest pain (principal); R55 Syncope and collapse; I25.2 Old myocardial infarction; I25.5 Ischemic cardiomyopathy; I11.0 Hypertensive heart disease with heart failure; I50.22 Chronic systolic (congestive) heart failure; I25.10 Atherosclerotic heart disease of native coronary artery without angina pectoris; F41.9 Anxiety disorder, unspecified; F32.9 Major depressive disorder, single episode, unspecified; E10.9 Type 1 diabetes mellitus without complications; Z95.5 Presence of coronary angioplasty implant and graft; E78.5 Hyperlipidemia, unspecified; Z79.899 Other long term (current) drug therapy; Z79.82 Long term (current) use of aspirin; Z79.4 Long term (current) use of insulin; Z79.02 Long term (current) use of antithrombotics/antiplatelets; I49.3 Ventricular premature depolarization
CPT/HCPCS: 36415; 71045; 80048; 81025; 82962; 83036; 84484; 85025; 93005; 93458; 93571; 96361; 96374; 96376; 97802; 99152; 99153; 99218; 99285; C1887; J0153; J7030; J7040; Q9967; A4216; C1769; C1894; G0378; J2405

== ENCOUNTER 2020-05-30 16:48 | Emergency (ER) | payer MEDICAID, SELFPAY ==
[2020-05-04 19:17] VITALS: BMI 33.5
[2020-05-30 16:48] VITALS: BP 149/99; PULSE 84; RESP 23; TEMP 36.4; O2SAT 97; BMI 33.7
[2020-05-30 16:54] VITALS: O2SAT 99
--- NOTE | 2020-05-30 16:56 | CT_ITS ---
STUDY: CT CHEST WITHOUT CONTRAST REASON FOR EXAM: Female, 40 years old. Trauma. Right-sided pain. RADIATION DOSAGE (If Supplied By Facility): CTDIvol = ( 18.47 ) mGy, DLP = ( 581.57 ) mGycm TECHNIQUE: Transaxial imaging was performed without the administration of intravenous contrast material. Coronal and sagittal reformatted images were created. Individualized dose optimization techniques were used for this CT. COMPARISON: None FINDINGS: There are no pulmonary infiltrates or pleural effusions. There are no pulmonary nodules or masses. There is no pneumothorax. The heart and pericardium are within normal limits. There are coronary artery calcifications. There is no thoracic lymphadenopathy. There is no evidence of thoracic aortic aneurysm. Images through the upper abdomen demonstrate no significant abnormality. The visualized osseous structures are intact. There is no acute fracture or dislocation. CT/Chest without Contrast IMPRESSION: No acute traumatic findings demonstrated on this noncontrast CT the chest. Clear lungs. No pneumothorax. Coronary artery disease. Electronically Signed: Topher Gallo MD at 17:50 EST Tel , Service support ,
--- NOTE | 2020-05-30 16:56 | CT_ITS ---
STUDY: CT BRAIN WITHOUT CONTRAST REASON FOR EXAM: Female, 40 years old. Trauma RADIATION DOSAGE (If Supplied By Facility): CTDIvol = ( 44.99 ) mGy, DLP = ( 846.73 ) mGycm TECHNIQUE: Transaxial CT imaging of the brain was performed without administration of intravenous contrast material. Individualized dose optimization techniques were used for this CT. COMPARISON: 12/04/18 FINDINGS: There is no acute bleed or infarct. There are normal white matter tracts. The ventricles are normal in configuration. There is no hydrocephalus. The visualized paranasal sinuses are clear. The mastoid air cells are well aerated. There is no skull fracture. CT/Brain/Head without Contrast IMPRESSION: No acute intracranial abnormality. Electronically Signed: Topher Gallo MD at 17:39 EST Tel , Service support ,
--- NOTE | 2020-05-30 16:58 | ED.DCSUM_ITS ---
History of Present Illness Chief Complaint: Fall Informant: Patient Narrative: 40-year-old female presenting for the evaluation of injuries sustained from a fall. Patient was at the top of 3 stairs when she slipped on/striking her right anterior chest and head on a propane tank then landing on her buttocks and going down the stairs. Noted superficial abrasion to the right anterior chest. There is also noted a hematoma to the right side of her head. She is on aspirin and Plavix. She notes tailbone pain. - Past Medical History (1) Chronic systolic (congestive) heart failure Status: Chronic (2) Ischemic cardiomyopathy Status: Chronic (3) Old anterior wall myocardial infarction Status: Chronic (4) History of coronary artery stent placement Status: Chronic Comment: [id number]-Gzhd and Mid LAD 01/2014, PCI-INOCENCIA-Mid RCA 02/2014 (5) Essential (primary) hypertension Status: Chronic (6) Hyperlipidemia Status: Chronic Past Medical History - Allergies and Home Meds Allergies/Adverse Reactions: Allergies perflutren [From Definity] Allergy (Severe, Verified 05/30/20 16:54) Anaphylaxis Iodinated Contrast Media [Iodinated Contrast Media - IV Dye] Allergy (Verified 05/30/20 16:54) Hives Penicillins Allergy (Verified 05/30/20 16:54) Rash Sulfa (Sulfonamide Antibiotics) Allergy (Verified 05/30/20 16:54) Hives Beta-Blockers (Beta-Adrenergic Bloc Adverse Reaction (Verified 05/30/20 16:54) Low blood pressure metformin Adverse Reaction (Verified 05/30/20 16:54) Upset Stomach nitroglycerin IV Allergy (Uncoded 05/30/20 16:54) DROPS HR nitro drips per pt will drop bp quick and will bottom out Surgical History: angioplasty, - - PCI x2, bilateral tubal ligation, back surgery with L4-L5 rods and screws in place, tonsillectomy. Smoking Status: Never smoker Drugs: None - Family History Paternal Family History: Family History (Last Reviewed 05/04/20 @ 18:[address] Gus Griffin DO) Father Cancer Brother Diabetes Sister Diabetes Heart disease Hypertension High cholesterol Mother Heart disease High cholesterol Hypertension CVA (cerebral vascular accident) Grandmother Heart disease High cholesterol Hypertension Grandfather Heart disease High cholesterol Hypertension CVA (cerebral vascular accident) Family History: Reports: Heart Disease Maternal Family History: Family History (Last Reviewed 05/04/20 @ 18:[address] Gus Griffin DO) Father Cancer Brother Diabetes Sister Diabetes Heart disease Hypertension High cholesterol Mother Heart disease High cholesterol Hypertension CVA (cerebral vascular accident) Grandmother Heart disease High cholesterol Hypertension Grandfather Heart disease High cholesterol Hypertension CVA (cerebral vascular accident) Family History: Reports: Stroke Review of Systems General: Denies: Chills, Fever, Sweats Eyes: Denies: Visual changes - bilaterally, Diplopia ENT: Denies: Rhinorrhea, Sore throat Cardiovascular: Reports: Chest pain. Denies: Palpitations Respiratory: Denies: Dyspnea, Cough, Dyspnea on exertion Gastrointestinal: Denies: Abdominal pain, Nausea, Vomiting, Diarrhea, Melena, Hematochezia Genitourinary: Denies: Dysuria, Hematuria, Frequency Musculoskeletal: Reports: Back pain - Tailbone. Denies: Extremity Pain Skin: Denies: Rash, Wounds Neurological: Reports: Headache. Denies: Weakness, Numbness Physical Exam Vital Signs/Narrative: Vital Signs Temp Pulse Resp BP Pulse Ox 05/30/20 16:54 99 05/30/20 16:48 97.6 F L 84 23 H 149/99 H 97 Inital Vital Signs reviewed: Yes General: Well nourished, Well developed, Obese, No Acute Distress Head: Normocephalic, Atraumatic Eyes: Perrl, EOMI ENT: Moist mucous membranes, No rhinorrhea Neck: Supple, Nontender Cardiovascular: Regular rate, Regular rhythm, No murmurs Respiratory: No distress, CTA bilaterally, Chest tenderness - Tenderness to palpation right chest with ecchymosis of about 2 inch area and a very superficial abrasion with no active bleeding Abdomen: Soft, Nontender, Nondistended, Normal bowel sounds Back: - - Sacral tenderness Extremities: Nontender, No edema Skin: Normal color, No rash Neurological: Alert, Oriented x3, Cranial nerves II-XII grossly intact, Normal Strength Psychological: Normal affect, Normal Mood Diagnostic/Tx/Re-eval Clinical Impression(s) from Imaging Studies Brain CT 05/30/20 16:56 IMPRESSION: No acute intracranial abnormality. Electronically Signed: Topher Gallo MD at 17:39 EST Tel , Service support , Chest CT 05/30/20 16:56 IMPRESSION: No acute traumatic findings demonstrated on this noncontrast CT the chest. Clear lungs. No pneumothorax. Coronary artery disease. Electronically Signed: Topher Gallo MD at 17:50 EST Tel , Service support , Lumbar Spine X-Ray 05/30/20 17:00 IMPRESSION: No fracture or dislocation in the lumbar spine. Straightening of the lumbar spine which can be seen with paraspinal muscle spasm. Status post posterior fusion of L4/L5 with intact hardware and satisfactory alignment. Mild degenerative change in the lower lumbar spine. Electronically Signed: Topher Gallo MD at 17:41 EST Tel , Service support , Pelvis X-Ray 05/30/20 17:16 IMPRESSION: No fracture or dislocation. Electronically Signed: Topher Gallo MD at 17:42 EST Tel , Service support , - Medical Decision Making My rotation of the lumbar plain films and the pelvis imaging is negative for acute fracture. Radiology concurs. CT of the brain negative for hemorrhage or fracture and CT chest negative for obvious pulmonary contusion pneumothorax or rib fracture. Patient received [place] here in the department. I will write for [place] and a few Valium at home. Recommend ice rest chest wall support. Patient was advised she will continue to hurt for some time. She is to expect increased soreness tomorrow. ED Disposition - Plan for ED Patient: Disposition: Home or Assisted Living Diagnosis: Scalp contusion, Chest wall contusion, Sacral contusion Instructions: ED Coccyx or Sacrum Contusion, ED Scalp Contusion, ED Chest Wall Contusion, ED Head Injury (Adult) Prescriptions: Hydrocodone Bitart/Apap 5-325 [[place] 5MG-325MG] 1 tab PO Q6H PRN PRN 3 Days #10 tab PRN Reason: Pain Prescription Printed Diazepam [Valium] 5 mg PO Q8 PRN #10 tab PRN Reason: Muscle Spasm Prescription Printed Additional Instructions: Follow-up with your primary care doctor in 1 week if not improving
[2020-05-30] MEDS: HYDROcodone Bitartrate/Apap 5/325 Tablet PO (17:00)
--- NOTE | 2020-05-30 17:00 | RAD_ITS ---
STUDY: X-RAY - LUMBAR SPINE REASON FOR EXAM: Female, 40 years old. Fall. Back pain. TECHNIQUE: 3 view(s) of the lumbar spine were obtained. COMPARISON: None FINDINGS: There is no evidence of fracture or dislocation in the lumbar spine. There is straightening of the lumbar spine. The patient is status post posterior fusion of L4/L5. The hardware is intact and alignment is satisfactory. There are mild degenerative changes in the lower lumbar spine. RAD/Lumbar Spine 2 or 3 Views IMPRESSION: No fracture or dislocation in the lumbar spine. Straightening of the lumbar spine which can be seen with paraspinal muscle spasm. Status post posterior fusion of L4/L5 with intact hardware and satisfactory alignment. Mild degenerative change in the lower lumbar spine. Electronically Signed: Topher Gallo MD at 17:41 EST Tel , Service support ,
--- NOTE | 2020-05-30 17:16 | RAD_ITS ---
STUDY: X-RAY - PELVIS REASON FOR EXAM: Female, 40 years old. Fall. Pain. TECHNIQUE: One view of the pelvis was obtained. COMPARISON: None. FINDINGS: There is no evidence of fracture or dislocation. There are no significant degenerative changes. There are no radiodense foreign bodies. RAD/Pelvis 1 or 2 Views IMPRESSION: No fracture or dislocation. Electronically Signed: Topher Gallo MD at 17:42 EST Tel , Service support ,
[2020-05-30] MEDS: diazePAM 5 MG Tablet PO (18:23)
--- NOTE | 2020-05-31 08:54 | DCINST.ED_ITS ---
ED Disposition - Plan for ED Patient: Disposition: Home or Assisted Living Diagnosis: Scalp contusion, Chest wall contusion, Sacral contusion Instructions: ED Coccyx or Sacrum Contusion, ED Scalp Contusion, ED Chest Wall Contusion, ED Head Injury (Adult) Prescriptions: Hydrocodone Bitart/Apap 5-325 [[place] 5MG-325MG] 1 tab PO Q6H PRN PRN 3 Days #10 tab PRN Reason: Pain Prescription Printed Hydrocodone Bitart/Apap 5-325 [[place] 5MG-325MG] 1 tab PO Q6H PRN PRN 3 Days #10 tab PRN Reason: Pain Prescription Printed Diazepam [Valium] 5 mg PO Q8 PRN #10 tab PRN Reason: Muscle Spasm Prescription Printed Diazepam [Valium] 5 mg PO Q8 PRN #10 tab PRN Reason: Muscle Spasm Prescription Printed Referrals: Care Physician,No Primary [Primary Care Provider] - Additional Instructions: Follow-up with your primary care doctor in 1 week if not improving
== END 2020-05-30 18:50 | disposition home or self-care (01) ==
PROVIDERS: Emergency Provider Emergency Medicine
DX: S20.219A Contusion of unspecified front wall of thorax, initial encounter (principal); S00.03XA Contusion of scalp, initial encounter; S30.0XXA Contusion of lower back and pelvis, initial encounter; W01.0XXA Fall on same level from slipping, tripping and stumbling without subsequent striking against object, initial encounter; I50.22 Chronic systolic (congestive) heart failure; I11.0 Hypertensive heart disease with heart failure; E78.5 Hyperlipidemia, unspecified; I25.10 Atherosclerotic heart disease of native coronary artery without angina pectoris; I25.5 Ischemic cardiomyopathy; I25.2 Old myocardial infarction; Z79.82 Long term (current) use of aspirin; Z82.49 Family history of ischemic heart disease and other diseases of the circulatory system; Z83.3 Family history of diabetes mellitus; Z83.49 Family history of other endocrine, nutritional and metabolic diseases; Z88.0 Allergy status to penicillin; Z88.2 Allergy status to sulfonamides; Z98.1 Arthrodesis status; Z95.5 Presence of coronary angioplasty implant and graft
CPT/HCPCS: 70450; 71250; 72100; 72170; 99285

== ENCOUNTER 2020-07-16 07:29 | Emergency (ER) | payer MEDICAID, SELFPAY ==
[2020-07-16 07:31] VITALS: BP 147/88; PULSE 90; RESP 18; TEMP 36.6; O2SAT 100; BMI 32.1
[2020-07-16 07:42] VITALS: BP 148/77; PULSE 90; RESP 18; TEMP 36.6; O2SAT 100
--- NOTE | 2020-07-16 07:54 | ED.VIS.GEN ---
History of Present Illness Chief Complaint: Abscess Informant: Patient Narrative: 40-year-old female with a history of coronary artery disease and MRSA infections presents with concerns for bilateral axillary abscesses. Patient has been on Cipro for the past couple days due to urinary tract infection. She also recently received a Covid vaccination. She began to feel some lumps in her axilla and thought that they were lymph nodes. 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 She tells me at one time she was told that they thought she had hidradenitis. She has never seen a plastic surgeon. She notes that her blood sugars been elevated around 500. She attributed this initially to the UTI but now wonders if it is due to her axillary infection. Prior similar symptoms: Yes - Past Medical History (1) Chronic systolic (congestive) heart failure Status: Chronic (2) Essential (primary) hypertension Status: Chronic (3) History of coronary artery stent placement Status: Chronic Comment: [id number]-Puxe and Mid LAD 01/2014, PCI-INOCENCIA-Mid RCA 02/2014 (4) Hyperlipidemia Status: Chronic (5) Ischemic cardiomyopathy Status: Chronic (6) Old anterior wall myocardial infarction Status: Chronic Past Medical History - Allergies and Home Meds Allergies/Adverse Reactions: Allergies perflutren [From Definity] Allergy (Severe, Verified 07/16/20 07:33) Anaphylaxis Iodinated Contrast Media [Iodinated Contrast Media - IV Dye] Allergy (Verified 07/16/20 07:33) Hives Penicillins Allergy (Verified 07/16/20 07:33) Rash Sulfa (Sulfonamide Antibiotics) Allergy (Verified 07/16/20 07:33) Hives Beta-Blockers (Beta-Adrenergic Bloc Adverse Reaction (Verified 07/16/20 07:33) Low blood pressure metformin Adverse Reaction (Verified 07/16/20 07:33) Upset Stomach nitroglycerin IV Allergy (Uncoded 07/16/20 07:33) DROPS HR nitro drips per pt will drop bp quick and will bottom out Primary Care Physician: Jhony Smith MD [Primary Care Provider] - Surgical History: angioplasty, - - PCI x2, bilateral tubal ligation, back surgery with L4-L5 rods and screws in place, tonsillectomy. Smoking Status: Never smoker Drugs: None - Family History Paternal Family History: Family History (Last Reviewed 05/04/20 @ 18:[address] Gus Griffin DO) Father Cancer Brother Diabetes Sister Diabetes Heart disease Hypertension High cholesterol Mother Heart disease High cholesterol Hypertension CVA (cerebral vascular accident) Grandmother Heart disease High cholesterol Hypertension Grandfather Heart disease High cholesterol Hypertension CVA (cerebral vascular accident) Family History: Reports: Heart Disease Maternal Family History: Family History (Last Reviewed 05/04/20 @ 18:[address] Gus Griffin DO) Father Cancer Brother Diabetes Sister Diabetes Heart disease Hypertension High cholesterol Mother Heart disease High cholesterol Hypertension CVA (cerebral vascular accident) Grandmother Heart disease High cholesterol Hypertension Grandfather Heart disease High cholesterol Hypertension CVA (cerebral vascular accident) Family History: Reports: Stroke Review of Systems General: Denies: Chills, Fever, Sweats Eyes: Denies: Visual changes - bilaterally, Diplopia ENT: Denies: Rhinorrhea, Sore throat Cardiovascular: Denies: Chest pain, Palpitations Respiratory: Denies: Dyspnea, Cough, Dyspnea on exertion Gastrointestinal: Denies: Abdominal pain, Nausea, Vomiting, Diarrhea, Melena, Hematochezia Genitourinary: Reports: Dysuria. Denies: Hematuria, Frequency Musculoskeletal: Reports: Extremity Pain. Denies: Back pain Skin: Reports: Abscess. Denies: Rash, Wounds Neurological: Denies: Headache, Weakness, Numbness Physical Exam Vital Signs/Narrative: Vital Signs Temp Pulse Resp BP Pulse Ox 07/16/20 07:42 97.9 F 90 18 148/77 H 100 07/16/20 07:31 97.9 F 90 18 147/88 H 100 Inital Vital Signs reviewed: Yes General: Well nourished, Well developed, No Acute Distress Head: Normocephalic, Atraumatic Eyes: Perrl, EOMI ENT: Moist mucous membranes, No rhinorrhea Neck: Supple, Nontender Cardiovascular: Regular rate, Regular rhythm, No murmurs Respiratory: No distress, CTA bilaterally, Chest nontender Abdomen: Soft, Nontender, Nondistended, Normal bowel sounds Back: Nontender, Normal Inspection Extremities: Nontender, No edema, - - Bilateral axillas demonstrate no overlying erythema. There is no fluctuance. There are about 3 firm nodule like formations in the right axilla and a couple in the left. Skin: Normal color, No rash Neurological: Alert, Oriented x3, Cranial nerves II-XII grossly intact, Normal Strength, Normal Sensation Psychological: Normal affect, Normal Mood Diagnostic/Tx/Re-eval - Medical Decision Making Bedside ultrasound was used to better characterize each 1 of these lesions and there is no definitive area that would be beneficial to drain at this time. We talked that these may organize more and necessitate I&D but at the current time I am not sure that there is a benefit to cutting them open. I will refer her to plastic surgery start her on doxycycline. She declines pain medication. I advised her to have a low threshold for return if any concerns as that is now the weekend and would be difficult to have 24 to 48-hour follow-up. ED Disposition - Plan for ED Patient: Disposition: Home or Assisted Living Diagnosis: Cutaneous abscesses of both axillae Instructions: ED Abscess Antibiotic Treatment Only Prescriptions: Doxycycline 100 mg PO BID #20 capsule Prescription Printed Referrals: Jhony Smith MD [Primary Care Provider] - As Needed Steven Dia MD [STAFF PHYSICIAN] - As soon as possible (for plastic surgery evaluation)
[2020-07-16 08:08] VITALS: RESP 16
--- NOTE | 2020-07-16 08:08 | ED.RN ---
REVIEWED D/C INSTRUCTIONS, FOLLOW UP CARE, PRESCRIPTION, AND S/S THAT WOULD WARRANT A RETURN TO THE ED WITH PT. PT VERBALIZED AN UNDERSTANDING AND DENIES FURTHER QUESTIONS FOR THIS RN. PT SKIN P/W/D, RESP EVEN AND UNLABORED, PT A&O X 3, NO DISTRESS NOTED. PT AMBULATED OUT OF ED, GAIT STEADY.
== END 2020-07-16 08:09 | disposition home or self-care (01) ==
LOC: ED 07:58
PROVIDERS: Emergency Provider Emergency Medicine; PCP Internal Medicine
DX: L02.412 Cutaneous abscess of left axilla (principal); L02.411 Cutaneous abscess of right axilla; E78.5 Hyperlipidemia, unspecified; N39.0 Urinary tract infection, site not specified; I25.10 Atherosclerotic heart disease of native coronary artery without angina pectoris; I11.0 Hypertensive heart disease with heart failure; I25.2 Old myocardial infarction; I25.5 Ischemic cardiomyopathy; I50.22 Chronic systolic (congestive) heart failure; Z82.49 Family history of ischemic heart disease and other diseases of the circulatory system; Z83.3 Family history of diabetes mellitus; Z83.49 Family history of other endocrine, nutritional and metabolic diseases; Z88.0 Allergy status to penicillin; Z88.2 Allergy status to sulfonamides; Z95.5 Presence of coronary angioplasty implant and graft
CPT/HCPCS: 99282

== ENCOUNTER 2020-08-19 13:28 | Emergency (ER) | payer MEDICAID, SELFPAY ==
[2020-08-19 13:29] VITALS: BP 133/63; PULSE 89; RESP 18; TEMP 36.2; O2SAT 99; BMI 32.5
--- NOTE | 2020-08-19 13:50 | RAD_ITS ---
STUDY: X-RAY - PELVIS AND LEFT HIP REASON FOR EXAM: Female, 40 years old. Atraumatic left hip pain TECHNIQUE: 3 views of the pelvis and hip. COMPARISON: Comparison is made with prior study dated 05/30/2020. FINDINGS: There is a non-specific bowel gas pattern. Normal visualized soft tissue structures. Normal bilateral iliac wings, sacroiliac joints and visualized sacrum. Normal bilateral superior and inferior pubic rami. Normal pubic symphysis. Normal bilateral ischial tuberosities. Normal visualized femoral head. Normal acetabulum. Normal hip joint. Well-corticated bony densities are seen adjacent to the greater trochanter. This may represent bursitis. The patient is status post fusion and prosthetic disc placement at the L4-L5 level. RAD/HIP, UNI W/ Pelvis 2-3 Views IMPRESSION: No fracture or dislocation is seen. Well-defined bony densities adjacent to the greater trochanter of the proximal left femur suggestive of possible calcific bursitis. Electronically Signed: Lupillo Mckeon MD at 14:13 EDT , Service support ,
--- NOTE | 2020-08-19 13:51 | ED.DCSUM_ITS ---
- ER Visit Summary Date of Service: 08/19/20 Chief Complaint: Atraumatic left hip pain History of Present Illness: The patient is a 40 F. Prior [place], CAD, stents on aspirin and Plavix, diabetes and hypertension complaining of atraumatic left hip pain for last 4 days. Denies fever or chills. No falls or injury. No redness. She has had prior back surgery with orthopedic hardware. She has known diabetic neuropathy is in both lower extremities. Physical Examination: Well-appearing middle-aged female. Vital signs stable afebrile. HEENT exam unremarkable. Lungs clear to auscultation bilaterally. Heart regular rhythm no murmur. Abdomen soft nontender normal bowel sounds no peritoneal signs. Back nontender. She does have mild tenderness to her left SI joint. Also tenderness to her left lateral hip. There is no redness or warmth. There is no swelling. There is no bony deformity. There is no shortening or rotation. She is able to flex and extend the left hip with mild discomfort. Mildly tender with straight leg raise. The left lower knee and ankle are nontender. She is able to dorsi plantarflex with her left foot. She can flex and extend with her left knee there is no effusion. She does have a neuropathy with decreased sensation in both lower extremities from the feet up to about the knee level. Neurologically she is awake and alert with no focal motor deficits. Test Results: Left hip x-ray with pelvis 3 view shows no acute abnormality. No fracture. No dislocation. There was some calcifications and they be consistent with calcific bursitis. I discussed the film with the patient. It was also read by the radiologist who agrees. Repeat exam she is doing well at 2:19 PM. Emergency Department Course and Treatment: Patient with atraumatic left hip pain. She will be given 2 [place] for pain. X-ray being obtained. Clinically it is not red or hot nor swollen. It does not look like a septic joint at home think labs are necessary. Treatment Plan: Motrin for pain and inflammation. [place] for pain. Plenty of fruits vegetables and fiber and stool softener if needed to prevent constipation. Follow-up if not improving. Return if fever or red. Disposition: Discharge Impression: Atraumatic left hip pain secondary to bursitis History of CAD with [place] History of insulin-dependent diabetes This note was generated with Departingation software. It may contain incorrect words, spelling, and punctuation that were not noted in review of the chart prior to signing ED Disposition - Plan for ED Patient: Referrals: Jhony Smith MD [Primary Care Provider] -
[2020-08-19] MEDS: HYDROcodone Bitartrate/Apap 5/325 Tablet PO (13:54)
--- NOTE | 2020-08-19 14:23 | DCINST.ED_ITS ---
ED Disposition - Plan for ED Patient: Disposition: Home or Assisted Living Instructions: ED Bursitis Prescriptions: Hydrocodone Bitart/Apap 5-325 [[place] 5MG-325MG] 2 tablet PO Q4H PRN PRN 4 Days #20 tablet PRN Reason: Pain Prescription Printed Referrals: Jhony Smith MD [Primary Care Provider] - 1 Week if not improving Additional Instructions: Ice to the hip and lower back in case this would also be sciatica. Motrin or Advil or ibuprofen for pain and inflammation. [place] for more severe pain up to 2 every 4 hours as needed. Make sure you are drinking plenty of water, fruits vegetables and fiber and stool softener as needed to prevent constipation. Follow-up with your doctor if not improving. Return to the ER if redness or fever develops.
[2020-08-19 14:25] VITALS: RESP 15
== END 2020-08-19 14:34 | disposition home or self-care (01) ==
PROVIDERS: Emergency Provider Emergency Medicine; PCP Internal Medicine
DX: M70.72 Other bursitis of hip, left hip (principal); I25.10 Atherosclerotic heart disease of native coronary artery without angina pectoris; I25.2 Old myocardial infarction; Z79.4 Long term (current) use of insulin; I10 Essential (primary) hypertension; Z79.02 Long term (current) use of antithrombotics/antiplatelets; E11.40 Type 2 diabetes mellitus with diabetic neuropathy, unspecified
CPT/HCPCS: 73502; 99283

== ENCOUNTER → 2020-09-24 09:30 | Outpatient (CLI) | payer MEDICAID, SELFPAY ==
[2020-09-24 08:40] VITALS: BMI 33.8
[2020-09-24 10:06] LABS: Absolute Neutrophil Count 4.6 X10^3/uL (2.0-7.7); Basophil# 0.03 X10^3/uL; Basophil% 0.4 % (0-1); Eosinophil# 0.18 X10^3/uL; Eosinophils% 2.5 % (0-5); Hematocrit 38.3 % (37-47); Hemoglobin 12.5 g/dL (12.0-15.0); Lymphocyte % 25.3 % (19-41); Mean Corp Hgb Conc 32.6 g/dL (32-36); Mean Corpuscular Hgb 27.5 pg (27.0-32.0); Mean Corpuscular Volume 84.2 fL (81-99); Mean Platelet Vol. 9.7 fl (6.2-12.0); NRBC Flagged by Analyzer 0 % (0-5); Neutrophil # 4.57 X10^3/uL (2.7-7.7); Neutrophil % 64.4 % (47-70); Platelet Count 293 K/mm3 (150-450); RBC Distribution Width CV 15.1 % (11.6-14.6); RBC Distribution Width SD 46.1 fl (35.1-43.9); Red Blood Count 4.55 M/mm3 (4.2-5.4); White Blood Count 7.1 K/mm3 (4.4-11.0)
[2020-09-24 10:29] LABS: Anion Gap 9 (5-15); BUN 17 mg/dL (7-18); BUN/Creat Ratio 21.7 RATIO (10-20); Calcium,Total 9.5 mg/dL (8.5-10.1); Chloride 102 mmol/L (98-107); Creatinine, Serum 0.78 mg/dL (0.55-1.02); EST Glomerular Filtration Rate 87 mL/min (>60); Est Glom Filt Rate - Afr Amer 105 mL/min (>60); Glucose 305 mg/dL (74-106); International Normalized Ratio 0.9; Potassium 4.4 mmol/L (3.5-5.1); Prothrombin Time (Protime)PT. 11.3 SECONDS (11.7-14.9); Sodium Level 137 mmol/L (136-145)
[2020-09-24 10:30] LABS: Partial Thromboplast Time 24.5 Seconds (24.1-36.2)
== END ==
PROVIDERS: PCP Internal Medicine; Referring Provider Physician Assistant Medical; Visit Provider Physician Assistant Medical
DX: I25.10 Atherosclerotic heart disease of native coronary artery without angina pectoris (principal); R07.9 Chest pain, unspecified; I10 Essential (primary) hypertension; E78.5 Hyperlipidemia, unspecified
CPT/HCPCS: 36415; 80048; 85025; 85610; 85730

== ENCOUNTER 2020-09-24 16:16 | Inpatient (IN) | payer MEDICAID, SELFPAY ==
[2020-09-24] VITALS (8 sets, daily range): BP systolic 117–132; BP diastolic 72–99; PULSE 81–91; RESP 14–18; TEMP 35.8–36.6; O2SAT 95–100; BMI 33.8; BMI 32.8; BMI 33.3
--- NOTE | 2020-09-24 16:23 | EKG12_ITS ---
Test Reason : REPEAT Blood Pressure : / mmHG Vent. Rate : 086 BPM Atrial Rate : 086 BPM P-R Int : 160 ms QRS Dur : 092 ms QT Int : 408 ms P-R-T Axes : 037 -24 047 degrees QTc Int : 488 ms Normal sinus rhythm Anterolateral infarct , age undetermined Abnormal ECG Confirmed by SARA MITCHELL, DAMON ([id number]), assistant film editor MITA HAN ([id number]) on 09/28/2020 2:01:52 PM Referred By: GLENN Confirmed By:DAMON RUIZ MD
--- NOTE | 2020-09-24 16:25 | RAD_ITS ---
STUDY: X-RAY CHEST REASON FOR EXAM: Female, 40 years old. chest pain TECHNIQUE: AP portable COMPARISON: 05/04/2020 FINDINGS: The lungs are clear and expanded. There is no demonstrated pleural abnormality. Normal size heart. Normal mediastinum and charlene. Normal visualized pulmonary arteries. Normal visualized aortic arch and descending thoracic aorta. Normal visualized thoracic spine. Normal visualized ribs, clavicles, and shoulders. There is no demonstrated abnormality of the visualized soft tissue structures of the upper abdomen. No significant change since prior exam RAD/Chest 1 View (Portable) IMPRESSION: Normal x-ray examination of the chest. Electronically Signed: Jonathan James MD at 16:41 EDT , Service support ,
[2020-09-24 16:57] LABS: Absolute Lymphocyte Count 1.84 X10^3/uL (0.83-4.51); Absolute Neutrophil Count 3.8 X10^3/uL (2.0-7.7); Basophil# 0.03 X10^3/uL; Basophil% 0.5 % (0-1); Eosinophil# 0.13 X10^3/uL; Eosinophils% 2.1 % (0-5); Hematocrit 40.2 % (37-47); Hemoglobin 12.9 g/dL (12.0-15.0); Lymphocyte # 1.84 X10^3/ul (0.83-4.51); Lymphocyte % 29.9 % (19-41); Mean Corp Hgb Conc 32.1 g/dL (32-36); Mean Corpuscular Hgb 27.2 pg (27.0-32.0); Mean Corpuscular Volume 84.6 fL (81-99); Mean Platelet Vol. 9.9 fl (6.2-12.0); Monocyte# 0.35 X10^3/uL; Monocyte% 5.7 % (0-10); NRBC Flagged by Analyzer 0 % (0-5); Neutrophil # 3.78 X10^3/uL (2.7-7.7); Neutrophil % 61.3 % (47-70); Platelet Count 308 K/mm3 (150-450); RBC Distribution Width CV 15.3 % (11.6-14.6); Red Blood Count 4.75 M/mm3 (4.2-5.4); White Blood Count 6.2 K/mm3 (4.4-11.0)
[2020-09-24 17:10] LABS: International Normalized Ratio 0.9; Prothrombin Time (Protime)PT. 11.6 SECONDS (11.7-14.9)
[2020-09-24 17:14] LABS: Anion Gap 8 (5-15); BUN 14 mg/dL (7-18); BUN/Creat Ratio 17.5 RATIO (10-20); Calcium,Total 9.6 mg/dL (8.5-10.1); Chloride 101 mmol/L (98-107); EST Glomerular Filtration Rate 85 mL/min (>60); Est Glom Filt Rate - Afr Amer 103 mL/min (>60); Estimated Creatinine Clearance 91.81 ml/min; Glucose 326 mg/dL (74-106); Potassium 3.9 mmol/L (3.5-5.1); Sodium Level 136 mmol/L (136-145)
--- NOTE | 2020-09-24 18:50 | EKG12_ITS ---
Test Reason : CP Blood Pressure : / mmHG Vent. Rate : 085 BPM Atrial Rate : 085 BPM P-R Int : 164 ms QRS Dur : 092 ms QT Int : 400 ms P-R-T Axes : 045 -19 060 degrees QTc Int : 476 ms Normal sinus rhythm Anterolateral infarct , age undetermined Abnormal ECG Confirmed by SARA MITCHELL, DAMON ([id number]), digital editor MITA HAN ([id number]) on 09/28/2020 2:00:19 PM Referred By: ROOPA/JULIAN Confirmed By:DAMNO RUIZ MD
--- NOTE | 2020-09-24 18:53 | ED.RN ---
p reports having increased cp and sob within last few minutes. dr shetty aware to repeat ekg
--- NOTE | 2020-09-24 19:40 | HP.PCM.HOS_ITS ---
[facility] - General General Date of Admission: 09/24/20 Date of Service: 09/24/20 Chief Complaint: Chest pain. [facility] Narrative LATA STONE, is a 40 F with past medical history as mentioned below presented to the emergency room because of chest pain. Symptoms started around 2 weeks ago with intermittent chest pain, mainly exertional, intermittent, described as squeezing type pain, sometimes goes up to 10 out of 10 in severity, associated with shortness of breath, nausea and diaphoresis and without aggravating or relieving factors. She stated that over the last 3 days, her pain has been getting more worse and more frequent. 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 After she went home, the pain came back and got worse and she decided to come to the emergency department. On April,, she underwent cardiac catheterization, found to have 70% stenosis of the RCA and she was referred to PCI. On the same day, she underwent IFR and FFR of the RCA and decision was made to treat her medically. In the last couple of weeks, she has been maxed out on her cardiac medications and her blood pressure has been on the lower side. In the emergency department, her vital signs were stable. Her routine blood work was unremarkable. Blood glucose was 226. EKG revealed normal sinus rhythm, nonspecific T wave changes, no acute ST elevation. Troponin was negative. Chest x-ray showed no acute findings. She is being admitted for unstable angina for evaluation. [facility] Medical History (Updated 09/24/20 @ 19:[address] Owen Carcamo MD) Anxiety and depression CAD (coronary artery disease), [place] coronary artery Chronic systolic (congestive) heart failure Diabetes mellitus type 1 Essential (primary) hypertension Hyperlipidemia Ischemic cardiomyopathy Old anterior wall myocardial infarction Syncope Type 2 diabetes mellitus Home Medications aspirin 81 mg PO DAILY 03/04/15 [History Last Taken 05/03/20] sertraline 100 mg PO DAILY 11/25/15 [History Last Taken 05/03/20] insulin lispro 26 units SQ TIDCM 05/02/18 [History Last Taken 05/04/20] insulin lispro See Protocol SQ TIDCM 05/02/18 [History Last Taken 05/04/20] gabapentin 300 mg PO DAILY 06/16/18 [History Last Taken 05/04/20] ondansetron 4 mg PO Q8H PRN PRN #10 tab 06/16/18 [Rx Last Taken 05/03/20] gabapentin 1,200 mg PO QHS 12/04/18 [History Last Taken 05/03/20] acyclovir 400 mg PO TID 09/13/19 [History Last Taken 05/04/20] insulin degludec 35 unit SQ BID 09/13/19 [History Last Taken 05/03/20] metoprolol tartrate 50 mg PO DAILY 09/13/19 [History Last Taken 05/04/20] magnesium oxide 400 mg (241.3 mg magnesium) tablet 400 mg PO BID #60 tab 09/29/19 [Rx Last Taken 05/04/20] nitroglycerin 0.4 mg sublingual tablet 0.4 mg SUBLINGUAL Q5M PRN #1 bottle 05/04/20 [Rx Last Taken 05/04/20] ranolazine 1,000 mg PO BID 05/04/20 [History Last Taken 05/04/20] isosorbide mononitrate 60 mg PO DAILY #30 tab 05/05/20 [Rx Last Taken Unknown] atorvastatin 80 mg tablet 80 mg PO QHS #90 tab 08/02/20 [Rx Last Taken Unknown] clopidogrel 75 mg tablet See Rx Instructions .ROUTE .COMPLEX #90 tablet 09/20/20 [Rx Last Taken Unknown] loratadine [Claritin] 10 mg PO DAILY 09/24/20 [History Last Taken Unknown] Allergy/AdvReac Type Severity Reaction Status Date / Time perflutren [From [employer]] Allergy Severe Anaphylaxis Verified 09/24/20 16:19 Iodinated Contrast Media Allergy Hives Verified 09/24/20 16:19 [Iodinated Contrast Media - IV Dye] Penicillins Allergy Rash Verified 09/24/20 16:19 Sulfa (Sulfonamide Allergy Hives Verified 09/24/20 16:19 Antibiotics) Beta-Blockers AdvReac Low blood Verified 09/24/20 16:19 (Beta-Adrenergic Bloc pressure metformin AdvReac Upset Verified 09/24/20 16:19 Stomach nitroglycerin IV Allergy DROPS HR Uncoded 09/24/20 16:19 Family History Father Cancer lung cancer Brother Diabetes Sister Diabetes Heart disease Hypertension High cholesterol Mother Heart disease High cholesterol Hypertension CVA (cerebral vascular accident) Grandmother Heart disease High cholesterol Hypertension Grandfather Heart disease High cholesterol Hypertension CVA (cerebral vascular accident) Surgical History History of coronary artery stent placement (02/2014) History of left heart catheterization (05/05/20) History of lumbar fusion History of tubal ligation Social History Smoking Status: Never smoker alcohol intake: never substance use type: does not use ROS Constitutional Constitutional: Denies anorexia, chills, fatigue, fever(s) or malaise Eyes Eyes: Denies blurry vision, change in eye color, change in vision, double vision or eye pain ENT HEENT: Denies ear pain, epistaxis, headache(s), nasal congestion, post nasal drip or sore throat Cardiovascular Cardiovascular: Reports chest pain, dyspnea on exertion and lightheadedness; Denies edema, orthopnea, palpitations, paroxysmal nocturnal dyspnea or syncope Respiratory/Chest Respiratory/Chest: Reports dyspnea and shortness of breath with exertion; Denies cough, hemoptysis, productive cough or wheezing Gastrointestinal Gastrointestinal: Reports nausea; Denies abdominal pain, constipation, diarrhea, hematemesis, hematochezia, melena or vomiting Genitourinary Genitourinary: Denies burning urination, dysuria, hematuria, urinary hesitancy or urinary urgency Musculoskeletal Musculoskeletal: Denies arthralgias, back pain, joint pain, joint swelling, myalgias or neck pain Neurologic Neurologic: Denies confusion, dizziness, focal weakness, headache(s), numbness, paresthesias, seizures, tingling or tremor(s) Psychiatric Psychiatric: Denies anxiety, depression, hallucinations, homicidal ideation or suicidal ideation Endocrine Endocrinology: Denies change in body appearance, cold intolerance, heat intolerance, polydipsia or polyuria Hematologic/Lymphatic Hematologic/Lymphatic: Denies easy bleeding, easy bruising or lymphadenopathy Allergic/Immunologic Allergic/Immunologic: Denies itchy eyes, rhinitis, throat swelling, tongue swelling, hives, urticaria or wheezing Vital Signs Vital Signs Vital Signs: 09/24/20 16:17 09/24/20 16:23 09/24/20 17:08 Temperature 96.5 F L Temperature Source Temporal Pulse Rate 88 Respiratory Rate 16 Respiratory Effort Normal Blood Pressure 132/88 H Blood Pressure Mean 102 Pulse Ox 100 Oxygen Delivery Method Room Air Room Air Oxygen Flow Rate (L/min) 09/24/20 17:25 09/24/20 18:35 09/24/20 19:05 Temperature Temperature Source Pulse Rate 87 87 86 Respiratory Rate 18 18 14 Respiratory Effort Blood Pressure 122/99 H 117/72 Blood Pressure Mean 106 87 Pulse Ox 97 100 100 Oxygen Delivery Method Room Air Room Air Nasal Cannula Oxygen Flow Rate (L/min) 2 09/24/20 19:30 Temperature 97.9 F Temperature Source Temporal Pulse Rate 86 Respiratory Rate 18 Respiratory Effort Blood Pressure 123/79 H Blood Pressure Mean 93 Pulse Ox 96 Oxygen Delivery Method Oxygen Flow Rate (L/min) Weight Weight: 210 lb Body Mass Index (BMI) 32.8 Physical Exam Const alert, oriented x3, no apparent distress and no limitations General Appearance: cooperative, comfortable and well kempt HEENT normocephalic, head/scalp atraumatic and moist oral mucous membranes Head and Scalp: normocephalic and atraumatic Eyes PERRL, EOMs intact bilaterally, conjunctivae normal and no scleral icterus General Eye: normal appearance of both eyes Periorbital: periorbital findings normal Neck no lymphadenopathy, supple, no meningeal signs, no JVD and no carotid bruits General: trachea midline Thyroid: thyroid normal Resp normal respiratory effort, normal air movement and clear to auscultation bilate rally Auscultation: Negative for crackles, rales, rhonchi or wheezes Cardio regular rate, regular rhythm, S1 normal heart sound, S2 normal heart sound, no murmurs and no JVD Peripheral Pulses: pulses 2+ throughout GI normal to inspection, nondistended, normoactive bowel sounds, soft to palpation, non-tender and non-distended; Negative for hepatosplenomegaly Auscultation: normoactive bowel sounds Extremity normal to inspection, full ROM and no clubbing, cyanosis or edema Skin no rashes or lesions noted, no wounds and no petechiae Neuro oriented x3, CN's II-XII intact bilaterally and moves all extremities Sensorium / Orientation: alert Speech: speech normal Motor Exam: strength 5/5 throughout Psych mental status grossly normal, affect normal and denies hallucinations Lab / Micro Data Result Diagrams: 09/24/20 16:44 09/24/20 16:44 Labs: Laboratory Results - last 24 hr 09/24/20 09/24/20 09/24/20 16:44 16:44 16:44 WBC 6.2 RBC 4.75 Hgb 12.9 Hct 40.2 MCV 84.6 MCH 27.2 MCHC 32.1 RDW Std Deviation 47.0 H RDW Coeff of [place] 15.3 H Plt Count 308 MPV 9.9 Immature Gran % (Auto) 0.500 Neut % (Auto) 61.3 Lymph % (Auto) 29.9 [place] % (Auto) 5.7 Eos % (Auto) 2.1 Baso % (Auto) 0.5 Absolute Neuts (auto) 3.8 Absolute Lymphs (auto) 1.84 Nucleated RBC % 0 PT 11.6 L INR 0.9 Sodium 136 Potassium 3.9 Chloride 101 Carbon Dioxide 27.0 Anion Gap 8 BUN 14 Creatinine 0.80 Estim Creat Clear Calc 91.81 Est GFR (MDRD) Af Amer 103 Est GFR (MDRD) Non-Af 85 BUN/Creatinine Ratio 17.5 Glucose 326 H Calcium 9.6 Troponin I < 0.015 Radiology Impression Chest X-Ray 09/24/20 16:25 IMPRESSION: Normal x-ray examination of the chest. Electronically Signed: Jonathan James MD at 16:41 EDT , Service support , Assessment & Plan Assessment/Plan (1) Unstable angina: (2) CAD (coronary artery disease), [place] coronary artery: (3) Ischemic cardiomyopathy: (4) Essential (primary) hypertension: (5) Hyperlipidemia: (6) Diabetes mellitus type 1: PLAN: This is a 40 years old female patient presented to the emergency room because of exertional chest pain compatible with unstable angina and she is being admitted for evaluation and treatment. #1 unstable angina: EKG and troponin reviewed as above. Chest x-ray showed no acute findings. Currently, chest pain improved. Plan: Admit to PCU, cardiac monitoring, serial cardiac enzymes, repeat EKG tomorrow morning, cardiology consult, gentle IV fluids for hydration, IV morphine as needed, Zofran as needed, Tylenol as needed, repeat CBC and BMP tomorrow morning. #2 CAD status post stents: Status post cardiac catheterization on April,, revealed 70% proximal RCA stenosis, underwent IFR and FFR of the RCA and she has been treated medically. Plan as above, continue aspirin, statins, Plavix, metoprolol, Ranexa and Imdur, cardiology consult as above. #3 uncontrolled type 1 diabetes mellitus: Hemoglobin A1c was 11.1% on April,. ADA diet, Accu-Cheks, insulin sliding scale, continue home doses of insulin lispro 3 times daily, Lantus, check hemoglobin A1c. #4 hypertension: Blood pressure stable, continue isosorbide mononitrate and metoprolol. #5 hyperlipidemia: Continue statins. #6 DVT prophylaxis: Low risk patient, no prophylaxis indicated. This note was generated with [employer] dictation software. It may contain incorrect words, spelling, and punctuation that were not noted in checking the note before signing. Visit Charges Inpatient E&M: 47298 Init Hosp L3
--- NOTE | 2020-09-24 19:56 | EDS_ITS ---
HPI History of Present Illness Chief Complaint: Chest Pain Narrative Narrative: 40-year-old female with history of diabetes, CHF, CAD, STEMI, hyperlipidemia presenting with chest pain. She states that she had a STEMI about several years ago and had stenting done. She states that she still has a 70% stenosis in what she believes is her right coronary artery. She states that she saw Dr. Ma this week for chest pain and was set up for outpatient catheterization. Patient states that she was told if she has any more chest pain to come to the ED. She complains of retrosternal chest pressure. This is worse with exertion. She denies fever, chills, cough. PFSH PFS Medical History Anxiety and depression CAD (coronary artery disease), [place] coronary artery Chronic systolic (congestive) heart failure Diabetes mellitus type 1 Essential (primary) hypertension Hyperlipidemia Ischemic cardiomyopathy Old anterior wall myocardial infarction Syncope Type 2 diabetes mellitus Home Medications aspirin 81 mg PO DAILY 03/04/15 [History Last Taken 05/03/20] sertraline 100 mg PO DAILY 11/25/15 [History Last Taken 05/03/20] insulin lispro 26 units SQ TIDCM 05/02/18 [History Last Taken 05/04/20] insulin lispro See Protocol SQ TIDCM 05/02/18 [History Last Taken 05/04/20] gabapentin 300 mg PO DAILY 06/16/18 [History Last Taken 05/04/20] ondansetron 4 mg PO Q8H PRN PRN #10 tab 06/16/18 [Rx Last Taken 05/03/20] gabapentin 1,200 mg PO QHS 12/04/18 [History Last Taken 05/03/20] acyclovir 400 mg PO TID 09/13/19 [History Last Taken 05/04/20] insulin degludec 35 unit SQ BID 09/13/19 [History Last Taken 05/03/20] metoprolol tartrate 50 mg PO DAILY 09/13/19 [History Last Taken 05/04/20] magnesium oxide 400 mg (241.3 mg magnesium) tablet 400 mg PO BID #60 tab 09/29/19 [Rx Last Taken 05/04/20] nitroglycerin 0.4 mg sublingual tablet 0.4 mg SUBLINGUAL Q5M PRN #1 bottle 05/04/20 [Rx Last Taken 05/04/20] ranolazine 1,000 mg PO BID 05/04/20 [History Last Taken 05/04/20] isosorbide mononitrate 60 mg PO DAILY #30 tab 05/05/20 [Rx Last Taken Unknown] atorvastatin 80 mg tablet 80 mg PO QHS #90 tab 08/02/20 [Rx Last Taken Unknown] clopidogrel 75 mg tablet See Rx Instructions .ROUTE .COMPLEX #90 tablet 09/20/20 [Rx Last Taken Unknown] loratadine [Claritin] 10 mg PO DAILY 09/24/20 [History Last Taken Unknown] Allergy/AdvReac Type Severity Reaction Status Date / Time perflutren [From [employer] Allergy Severe Anaphylaxis Verified 09/24/20 16:19 Iodinated Contrast Media Allergy Hives Verified 09/24/20 16:19 [Iodinated Contrast Media - IV Dye] Penicillins Allergy Rash Verified 09/24/20 16:19 Sulfa (Sulfonamide Allergy Hives Verified 09/24/20 16:19 Antibiotics) Beta-Blockers AdvReac Low blood Verified 09/24/20 16:19 (Beta-Adrenergic Bloc pressure metformin AdvReac Upset Verified 09/24/20 16:19 Stomach nitroglycerin IV Allergy DROPS HR Uncoded 09/24/20 16:19 Family History Father Cancer lung cancer Brother Diabetes Sister Diabetes Heart disease Hypertension High cholesterol Mother Heart disease High cholesterol Hypertension CVA (cerebral vascular accident) Grandmother Heart disease High cholesterol Hypertension Grandfather Heart disease High cholesterol Hypertension CVA (cerebral vascular accident) Surgical History History of coronary artery stent placement (02/2014) History of left heart catheterization (05/05/20) History of lumbar fusion History of tubal ligation Social History Smoking Status: Never smoker alcohol intake: never substance use type: does not use ROS ROS ED Constitutional Constitutional ED: Denies chills, fever(s) or sweats Eyes Eyes: Denies blurry vision or change in vision ENT ENT ED: Denies ear pain, rhinorrhea or sore throat Cardiovascular Cardiovascular: Reports chest pain and racing heartbeat; Denies palpitations Respiratory/Chest Respiratory/Chest: Reports dyspnea and dyspnea on exertion; Denies cough or sputum Gastrointestinal Gastrointestinal: Denies abdominal pain, constipation, diarrhea or vomiting Genitourinary Genitourinary ED: Denies dysuria, hematuria or urinary frequency Musculoskeletal Musculoskeletal: Denies arthralgias, myalgias or neck pain Integumentary Denies abscess, Abrasions or rash Neurologic Neurologic: Denies headache(s), paresthesias or weakness Psychiatric Psychiatric: Denies anxiety, depression, suicidal ideation or suicidal thoughts Endocrine Endocrinology: Denies polydipsia or polyuria EXAM Physical Exam Const Vital Signs: 09/24/20 16:17 09/24/20 16:23 09/24/20 17:08 Temperature 96.5 F L Temperature Source Temporal Pulse Rate 88 Respiratory Rate 16 Respiratory Effort Normal Blood Pressure 132/88 H Blood Pressure Mean 102 Pulse Ox 100 Oxygen Delivery Method Room Air Room Air Oxygen Flow Rate (L/min) 09/24/20 17:25 09/24/20 18:35 09/24/20 19:05 Temperature Temperature Source Pulse Rate 87 87 86 Respiratory Rate 18 18 14 Respiratory Effort Blood Pressure 122/99 H 117/72 Blood Pressure Mean 106 87 Pulse Ox 97 100 100 Oxygen Delivery Method Room Air Room Air Nasal Cannula Oxygen Flow Rate (L/min) 2 Positive well nourished General Appearance ED: NAD; Negative for pallor HEENT Reports normocephalic, head/scalp atraumatic and moist mucous membranes normocephalic and atraumatic Eyes PERRL and EOMs intact bilaterally Neck no lymphadenopathy and supple Chest Wall inspection of chest normal and palpation of chest normal Resp normal respiratory effort and clear to auscultation bilaterally Auscultation: Negative for rales, rhonchi or wheezes Cardio regular rate and regular rhythm GI normal to inspection, nondistended, normoactive bowel sounds and non-distended Auscultation: normoactive bowel sounds Palpation: soft Narrative: Deferred Extremity normal to inspection General Extremety ED: Negative for edema or tenderness General Extremity: Negative for edema Neuro oriented x3 and CN's II-XII intact bilaterally Sensorium / Orientation: alert Motor Exam: strength 5/5 throughout Psych mental status grossly normal Attitude: No agitated Skin no rashes or lesions noted and no wounds General Skin Exam: Negative for jaundice or pallor Heart Score History: Highly Suspicious ECG: Normal Age: </= 45 years Risk Factors: >/= 3 Risk Factors or History of CAD Score: 4 MDM MDM MDM Narrative Medical decision making narrative: Patient presenting with chest pain denies history of cardiac disease. Heart score is 5. Patient has EKG performed on arrival which shows a normal sinus rhythm at 85 bpm without signs of ischemic changes as interpreted by myself. Chest x-ray shows no acute cardiopulmonary process as interpreted by myself. Radiologist does agree. Patient's lab work is all within normal limits. Troponin is negative. Given patient's heart score and plan for catheterization I believe she needs to be admitted for unstable angina. Impression: 1. Chest pain Lab Data Labs: Laboratory Results - last 24 hr 09/24/20 09/24/20 09/24/20 16:44 16:44 16:44 WBC 6.2 RBC 4.75 Hgb 12.9 Hct 40.2 MCV 84.6 MCH 27.2 MCHC 32.1 RDW Std Deviation 47.0 H RDW Coeff of [place] 15.3 H Plt Count 308 MPV 9.9 Immature Gran % (Auto) 0.500 Neut % (Auto) 61.3 Lymph % (Auto) 29.9 [place] % (Auto) 5.7 Eos % (Auto) 2.1 Baso % (Auto) 0.5 Absolute Neuts (auto) 3.8 Absolute Lymphs (auto) 1.84 Nucleated RBC % 0 PT 11.6 L INR 0.9 Sodium 136 Potassium 3.9 Chloride 101 Carbon Dioxide 27.0 Anion Gap 8 BUN 14 Creatinine 0.80 Estim Creat Clear Calc 91.81 Est GFR (MDRD) Af Amer 103 Est GFR (MDRD) Non-Af 85 BUN/Creatinine Ratio 17.5 Glucose 326 H Calcium 9.6 Troponin I < 0.015 Radiography Diagnostic Testing: Radiology Impression Chest X-Ray 09/24/20 16:25 IMPRESSION: Normal x-ray examination of the chest. Electronically Signed: Jonathan James MD at 16:41 EDT , Service support , Discharge Plan Disposition Disposition: Acute Care Hospital [facility] Discharge Date/Time: 09/24/20 19:47
--- NOTE | 2020-09-24 20:12 | EKG12_ITS ---
Test Reason : Blood Pressure : / mmHG Vent. Rate : 084 BPM Atrial Rate : 084 BPM P-R Int : 166 ms QRS Dur : 104 ms QT Int : 416 ms P-R-T Axes : 047 -06 062 degrees QTc Int : 491 ms Normal sinus rhythm Poor R wave progression Confirmed by CECILIA MITCHELL, YUNIOR ([id number]), mapping editor MITA HAN ([id number]) on 09/29/2020 1:10:12 PM Referred By: TOM Confirmed By:YUNIOR BROOKS MD
[2020-09-24] MEDS: 0.9% Normal Saline 1,000 ML 75 ML IV (20:29)
[2020-09-24] MEDS: Morphine 2 MG/ML Syringe IV (22:02)
[2020-09-24] MEDS: Acyclovir 200 MG Capsule 400 MG PO (22:57)
[2020-09-24] MEDS: Ranolazine 500 MG Tablet 1000 MG PO (22:57)
[2020-09-24] MEDS: Atorvastatin Calcium 80 MG Tablet PO (22:58)
[2020-09-24] MEDS: Insulin Lispro 100 UNIT/ML INSULN.PEN SC (23:02)
[2020-09-24] MEDS: Gabapentin 600 MG Tablet 1200 MG PO (23:06)
[2020-09-24 23:15] LABS: Bedside Glucose 268 mg/dL (70-110)
[2020-09-25] VITALS (11 sets, daily range): BP systolic 107–122; BP diastolic 60–75; PULSE 80–86; RESP 16–18; TEMP 36.6–36.9; O2SAT 96–99
[2020-09-25] MEDS: Morphine 2 MG/ML Syringe IV (01:18)
[2020-09-25] MEDS: Acyclovir 200 MG Capsule 400 MG PO ×3 (05:41→22:11)
[2020-09-25 05:54] LABS: Absolute Lymphocyte Count 2.34 X10^3/uL (0.83-4.51); Absolute Neutrophil Count 2.5 X10^3/uL (2.0-7.7); Basophil# 0.03 X10^3/uL; Basophil% 0.5 % (0-1); Eosinophil# 0.18 X10^3/uL; Eosinophils% 3.2 % (0-5); Hematocrit 36.2 % (37-47); Hemoglobin 11.6 g/dL (12.0-15.0); Lymphocyte # 2.34 X10^3/ul (0.83-4.51); Lymphocyte % 41.7 % (19-41); Mean Corpuscular Hgb 27.2 pg (27.0-32.0); Mean Platelet Vol. 9.8 fl (6.2-12.0); Monocyte# 0.53 X10^3/uL; Monocyte% 9.4 % (0-10); NRBC Flagged by Analyzer 0 % (0-5); Neutrophil # 2.52 X10^3/uL (2.7-7.7); Platelet Count 260 K/mm3 (150-450); RBC Distribution Width SD 46.5 fl (35.1-43.9); Red Blood Count 4.26 M/mm3 (4.2-5.4); White Blood Count 5.6 K/mm3 (4.4-11.0)
--- NOTE | 2020-09-25 05:55 | EKG12_ITS ---
Test Reason : CP ADMIN Blood Pressure : / mmHG Vent. Rate : 083 BPM Atrial Rate : 083 BPM P-R Int : 168 ms QRS Dur : 098 ms QT Int : 410 ms P-R-T Axes : 037 -21 051 degrees QTc Int : 481 ms Normal sinus rhythm Leftward axis Poor R wave progression Confirmed by CECILIA MITCHELL, YUNIOR ([id number]), copy editor MITA HAN ([id number]) on 09/29/2020 1:14:07 PM Referred By: TOM Confirmed By:YUNIOR BROOKS MD
[2020-09-25 06:24] LABS: Anion Gap 7 (5-15); BUN 12 mg/dL (7-18); BUN/Creat Ratio 17.8 RATIO (10-20); Calcium,Total 8.4 mg/dL (8.5-10.1); Chloride 104 mmol/L (98-107); Creatinine, Serum 0.67 mg/dL (0.55-1.02); EST Glomerular Filtration Rate 103 mL/min (>60); Est Glom Filt Rate - Afr Amer 125 mL/min (>60); Estimated Creatinine Clearance 109.63 ml/min; Glucose 240 mg/dL (74-106); Potassium 3.6 mmol/L (3.5-5.1); Sodium Level 138 mmol/L (136-145)
[2020-09-25 09:21] LABS: Bedside Glucose 222 mg/dL (70-110)
--- NOTE | 2020-09-25 09:28 | CASEMGMT ---
MARIA VICTORIA MARTINS Assessment: RN LAKSHMI in to pt room for initial transition planning/care coordination assessment. RN LAKSHMI introduced self and role at [facility], pt voices understanding and consents to assessment. Pt sitting up in bed in no distress. Care providers, pharmacy, and demographics verified/updated. Admitting Dx:CP, angina pectoris PCP: Luis Specialists: Francesca, cardio; Santino Wynne endocrinology; Mark [facility] Preferred Pharmacy: [facility] [place] Insurance: Bui Prescription Benefit: yes LW/HPOA: Pt denies having a LW/DPOA. LNOK: Andrew Colombian, sig other Living Arrangements: Pt lives in a two story house with 4 steps to enter with a rail with her sig other and 12 year old dtr. Pt is I in ADL's and denies concerns at home. Transportation: Pt states she drives and denies concerns with transportation. DME/HHC/SNF: Pt has grab bars and a cane at home. She has had HHC through [facility] and [facility]. Pt denies any SNF stays but has been in [facility] Rehab unit. 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 She wants to be dc'd and come back for the heart cath but states she is not allowed to go home. Pt states no further concerns/needs. CM to follow. Advised pt to contact CM if any further question/concerns/needs arise, voices understanding. Pt Goal: Home Plan: Home with family support.
[2020-09-25] MEDS: Insulin Lispro 100 UNIT/ML INSULN.PEN 26 UNIT SC ×3 (10:33→18:16)
[2020-09-25] MEDS: Insulin Lispro 100 UNIT/ML INSULN.PEN SC ×3 (10:33→22:16)
[2020-09-25] MEDS: Clopidogrel Bisulfate 75 MG Tablet PO (10:37)
--- NOTE | 2020-09-25 10:37 | CASEMGMT ---
According to [employer] website, the following tertiary facilities are in network: [facility], [place], [facility], [facility], [facility], [facility] and .
[2020-09-25] MEDS: Gabapentin 300 MG Capsule PO (10:38)
[2020-09-25] MEDS: Ranolazine 500 MG Tablet 1000 MG PO ×2 (10:38→22:10)
[2020-09-25] MEDS: Loratadine 10 MG Tablet PO (10:38)
[2020-09-25] MEDS: Sertraline 100 MG Tablet PO (10:38)
[2020-09-25] MEDS: Metoprolol Tartrate 50 MG Tablet PO (10:39)
[2020-09-25] MEDS: Aspirin 81 MG TAB.CHEW PO (10:40)
[2020-09-25] MEDS: Isosorbide Mononitrate 60 MG Tablet PO (10:41)
[2020-09-25 13:30] LABS: Bedside Glucose 210 mg/dL (70-110)
--- NOTE | 2020-09-25 14:00 | CON.PCM.CA_ITS ---
Assessment & Plan Assessment/Plan (1) Unstable angina: PLAN: Patient 40-year-old female with history of CAD History of STEMI with PCI and stent of LAD. Patient is scheduled to undergo cardiac cath as an outpatient however she had symptoms of chest pain and was admitted through the emergency department. Has been on medical treatment with long acting nitrate as well as beta-zita Today patient seen and evaluated at bedside along with the nursing staff she was feeling lightheaded dizziness This is secondary to the current medication with long-acting nitrate and beta- zita Blood pressure stable as well as youth nutritional monitor On review of the EKG she had aged indeterminate anterior CO with loss of R wave in the anterior leads and a clear evidence of a Q-wave. Recommendation plan; 1. Review all the current medication Reduce the dose of beta-zita to 12.5 mg twice daily Discontinue long-acting nitroglycerin 3. We will continue the rest of her current medication 4. The cardiac work-up with series of high sensitive troponin negative and patient been stable hemodynamically We will discuss further plan and follow-up in the morning. And if she remains stable clinically, she can be set up for cardiac catheterization as an outpatient. (2) CAD (coronary artery disease), [place] coronary artery: (3) Diabetes mellitus type 1: (4) Old anterior wall myocardial infarction: (5) History of coronary artery stent placement: (6) Essential (primary) hypertension: (7) Hyperlipidemia: HPI Consult Data Date of Consult: 09/25/20 HPI Narrative Reason for Consultation: Patient with known history of CAD. STEMI 2013 with PCI stent of LAD/INOCENCIA. HPI Narrative: LATA STONE, is a 40 F who presents [facility] Medical History (Updated 09/24/20 @ 20:06 by Felisha Reyna) Anxiety and depression CAD (coronary artery disease), [place] coronary artery Chronic pain Chronic systolic (congestive) heart failure Depression Diabetes Diabetes mellitus type 1 Essential (primary) hypertension Hyperlipidemia Ischemic cardiomyopathy Myocardial infarct HERNANDEZ (nonalcoholic steatohepatitis) Non-smoker Old anterior wall myocardial infarction Sleep apnea Syncope Type 2 diabetes mellitus Home Medications aspirin 81 mg PO DAILY 03/04/15 [History Last Taken 09/23/20] sertraline 100 mg PO DAILY 11/25/15 [History Last Taken 05/03/20] insulin lispro 26 units SQ TIDCM 05/02/18 [History Last Taken 05/04/20] insulin lispro See Protocol SQ TIDCM 05/02/18 [History Last Taken 05/04/20] gabapentin 300 mg PO DAILY 06/16/18 [History Last Taken 05/04/20] ondansetron 4 mg PO Q8H PRN PRN #10 tab 06/16/18 [Rx Last Taken 05/03/20] gabapentin 1,200 mg PO QHS 12/04/18 [History Last Taken 05/03/20] acyclovir 400 mg PO TID 09/13/19 [History Last Taken 09/24/20] insulin degludec 35 unit SQ BID 09/13/19 [History Last Taken 05/03/20] metoprolol tartrate 50 mg PO DAILY 09/13/19 [History Last Taken 05/04/20] magnesium oxide 400 mg (241.3 mg magnesium) tablet 400 mg PO BID #60 tab 09/29/19 [Rx Last Taken 05/04/20] nitroglycerin 0.4 mg sublingual tablet 0.4 mg SUBLINGUAL Q5M PRN #1 bottle 05/04/20 [Rx Last Taken 05/04/20] ranolazine 1,000 mg PO BID 05/04/20 [History Last Taken 05/04/20] isosorbide mononitrate 60 mg PO DAILY #30 tab 05/05/20 [Rx Last Taken Unknown] atorvastatin 80 mg tablet 80 mg PO QHS #90 tab 08/02/20 [Rx Last Taken 09/23/20] clopidogrel 75 mg PO QHS 09/24/20 [History Last Taken 09/23/20] loratadine [Claritin] 10 mg PO DAILY 09/24/20 [History Last Taken Unknown] Allergy/AdvReac Type Severity Reaction Status Date / Time perflutren [From [email or web address]] Allergy Severe Anaphylaxis Verified 09/24/20 16:19 Iodinated Contrast Media Allergy Hives Verified 09/24/20 16:19 [Iodinated Contrast Media - IV Dye] Penicillins Allergy Rash Verified 09/24/20 16:19 Sulfa (Sulfonamide Allergy Hives Verified 09/24/20 16:19 Antibiotics) Beta-Blockers AdvReac Low blood Verified 09/24/20 16:19 (Beta-Adrenergic [place] pressure metformin AdvReac Upset Verified 09/24/20 16:19 Stomach nitroglycerin AdvReac Other Verified 09/24/20 20:10 Family History Father Cancer lung cancer Brother Diabetes Sister Diabetes Heart disease Hypertension High cholesterol Mother Heart disease High cholesterol Hypertension CVA (cerebral vascular accident) Grandmother Heart disease High cholesterol Hypertension Grandfather Heart disease High cholesterol Hypertension CVA (cerebral vascular accident) Surgical History History of coronary artery stent placement (02/2014) History of left heart catheterization (05/05/20) History of lumbar fusion History of tubal ligation Social History Smoking Status: Never smoker alcohol intake: never substance use type: does not use Physical Exam Narrative Patient seen and evaluated today at bedside along with the nursing staff Review of the telemetry showed underlying normal sinus rhythm Cardiac exam S1-S2 regular There is no murmur Chest exam clear to auscultation Examination abdomen soft Examination lower extremity pedal pulses palpable +2 No lower extremity edema Examination of central nervous system no focal neurological deficit noted. Objective Data Vital Signs: Vital Signs Temp Pulse Resp BP Pulse Ox 98.1 F 80 16 122/61 H 98 09/25/20 14:00 09/25/20 14:00 09/25/20 14:00 09/25/20 14:00 09/25/20 14:00 Oxygen Flow Rate (L/min) 3 Oxygen Delivery Method Room Air Weight: 212 lb 6.646 oz Body Mass Index (BMI) 33.3 Intake & Output: Intake and Output for Last 24 Hours 09/23/20 09/24/20 09/25/20 23:59 23:59 23:59 Intake Total 951.25 / 951.25 Balance 951.25 / 951.25 Lab / Micro Data Result Diagrams: 09/25/20 05:26 09/25/20 05:26 Labs: Laboratory Results - last 24 hr 09/24/20 09/24/20 09/24/20 16:44 16:44 16:44 WBC 6.2 RBC 4.75 Hgb 12.9 Hct 40.2 MCV 84.6 MCH 27.2 MCHC 32.1 RDW Std Deviation 47.0 H RDW Coeff of [place] 15.3 H Plt Count 308 MPV 9.9 Immature Gran % (Auto) 0.500 Neut % (Auto) 61.3 Lymph % (Auto) 29.9 [place] % (Auto) 5.7 Eos % (Auto) 2.1 Baso % (Auto) 0.5 Absolute Neuts (auto) 3.8 Absolute Lymphs (auto) 1.84 Nucleated RBC % 0 PT 11.6 L INR 0.9 Sodium 136 Potassium 3.9 Chloride 101 Carbon Dioxide 27.0 Anion Gap 8 BUN 14 Creatinine 0.80 Estim Creat Clear Calc 91.81 Est GFR (MDRD) Af Amer 103 Est GFR (MDRD) Non-Af 85 BUN/Creatinine Ratio 17.5 Glucose 326 H Hemoglobin A1c Calcium 9.6 Troponin I < 0.015 POC Glucose 09/24/20 09/24/20 09/24/20 16:44 21:22 22:48 WBC RBC Hgb Hct MCV MCH MCHC RDW Std Deviation RDW Coeff of [place] Plt Count MPV Immature Gran % (Auto) Neut % (Auto) Lymph % (Auto) [place] % (Auto) Eos % (Auto) Baso % (Auto) Absolute Neuts (auto) Absolute Lymphs (auto) Nucleated RBC % PT INR Sodium Potassium Chloride Carbon Dioxide Anion Gap BUN Creatinine Estim Creat Clear Calc Est GFR (MDRD) Af Amer Est GFR (MDRD) Non-Af BUN/Creatinine Ratio Glucose Hemoglobin A1c 11.0 H Calcium Troponin I < 0.015 POC Glucose 268 H 09/25/20 09/25/20 09/25/20 00:20 05:26 05:26 WBC 5.6 RBC 4.26 Hgb 11.6 L Hct 36.2 L MCV 85.0 MCH 27.2 MCHC 32.0 RDW Std Deviation 46.5 H RDW Coeff of [place] 15.0 H Plt Count 260 MPV 9.8 Immature Gran % (Auto) 0.200 Neut % (Auto) 45.0 L Lymph % (Auto) 41.7 H [place] % (Auto) 9.4 Eos % (Auto) 3.2 Baso % (Auto) 0.5 Absolute Neuts (auto) 2.5 Absolute Lymphs (auto) 2.34 Nucleated RBC % 0 PT INR Sodium 138 Potassium 3.6 Chloride 104 Carbon Dioxide 27.0 Anion Gap 7 BUN 12 Creatinine 0.67 Estim Creat Clear Calc 109.63 Est GFR (MDRD) Af Amer 125 Est GFR (MDRD) Non-Af 103 BUN/Creatinine Ratio 17.8 Glucose 240 H Hemoglobin A1c Calcium 8.4 L Troponin I < 0.015 POC Glucose 09/25/20 09/25/20 09:07 13:24 WBC RBC Hgb Hct MCV MCH MCHC RDW Std Deviation RDW Coeff of [place] Plt Count MPV Immature Gran % (Auto) Neut % (Auto) Lymph % (Auto) [place] % (Auto) Eos % (Auto) Baso % (Auto) Absolute Neuts (auto) Absolute Lymphs (auto) Nucleated RBC % PT INR Sodium Potassium Chloride Carbon Dioxide Anion Gap BUN Creatinine Estim Creat Clear Calc Est GFR (MDRD) Af Amer Est GFR (MDRD) Non-Af BUN/Creatinine Ratio Glucose Hemoglobin A1c Calcium Troponin I POC Glucose 222 H 210 H Cardiology Labs/Tests 09/24/20 16:44: WBC 6.2, RBC 4.75, Hgb 12.9, Hct 40.2, MCV 84.6, MCH 27.2, MCHC 32.1, Plt Count 308, MPV 9.9, Immature Gran % (Auto) 0.500, Neut % (Auto) 61.3, Lymph % (Auto) 29.9, [place] % (Auto) 5.7, Eos % (Auto) 2.1, Baso % (Auto) 0.5, Absolute Neuts (auto) 3.8, Nucleated RBC % 0 09/24/20 16:44: PT 11.6 L, INR 0.9 09/24/20 16:44: Sodium 136, Potassium 3.9, Chloride 101, Carbon Dioxide 27.0, Anion Gap 8, BUN 14, Creatinine 0.80, Est GFR (MDRD) Af Amer 103, Est GFR (MDRD) Non-Af 85, BUN/Creatinine Ratio 17.5, Glucose 326 H, Calcium 9.6, Troponin I < 0.015 09/24/20 16:44: Hemoglobin A1c 11.0 H 09/24/20 21:22: Troponin I < 0.015 09/25/20 00:20: Troponin I < 0.015 09/25/20 05:26: WBC 5.6, RBC 4.26, Hgb 11.6 L, Hct 36.2 L, MCV 85.0, MCH 27.2, MCHC 32.0, Plt Count 260, MPV 9.8, Immature Gran % (Auto) 0.200, Neut % (Auto) 45.0 L, Lymph % (Auto) 41.7 H, [place] % (Auto) 9.4, Eos % (Auto) 3.2, Baso % (Auto) 0.5, Absolute Neuts (auto) 2.5, Nucleated RBC % 0 09/25/20 05:26: Sodium 138, Potassium 3.6, Chloride 104, Carbon Dioxide 27.0, Anion Gap 7, BUN 12, Creatinine 0.67, Est GFR (MDRD) Af Amer 125, Est GFR (MDRD) Non-Af 103, BUN/Creatinine Ratio 17.8, Glucose 240 H, Calcium 8.4 L Rhythm: EKG: ECHO: Stress Test: Cardiac Cath: PCI: CT Surgery: Holter monitor: EPS: PPM: CXR: Chest CT Scan: Radiography Diagnostic Testing: Radiology Impression Chest X-Ray 09/24/20 16:25 IMPRESSION: Normal x-ray examination of the chest. Electronically Signed: Jonathan James MD at 16:41 EDT , Service support ,
--- NOTE | 2020-09-25 14:27 | PN.HOSP_ITS ---
Subjective Subjective Patient seen and examined. She was admitted with complaint of chest pain. She has been managed for unstable angina. She has a known history of coronary artery disease. She states she had a bad night because the chest pain was persistent. Chest pain is still present but is much better this morning. Review of systems otherwise negative. She has remained hemodynamically stable. Cardiology on board. Objective Data Objective Data Vital Signs: Vital Signs Temp Pulse Resp BP Pulse Ox 98.1 F 80 16 122/61 H 98 09/25/20 14:00 09/25/20 14:00 09/25/20 14:00 09/25/20 14:00 09/25/20 14:00 Oxygen Flow Rate (L/min) 3 Oxygen Delivery Method Room Air Weight: 212 lb 6.646 oz Body Mass Index (BMI) 33.3 Intake & Output: Intake and Output for Last 24 Hours 09/23/20 09/24/20 09/25/20 23:59 23:59 23:59 Intake Total 951.25 / 951.25 Balance 951.25 / 951.25 Lab / Micro Data Result Diagrams: 09/26/20 05:16 09/26/20 05:16 Labs: Laboratory Results - last 24 hr 09/24/20 09/24/20 09/24/20 16:44 16:44 16:44 WBC 6.2 RBC 4.75 Hgb 12.9 Hct 40.2 MCV 84.6 MCH 27.2 MCHC 32.1 RDW Std Deviation 47.0 H RDW Coeff of [place] 15.3 H Plt Count 308 MPV 9.9 Immature Gran % (Auto) 0.500 Neut % (Auto) 61.3 Lymph % (Auto) 29.9 [place] % (Auto) 5.7 Eos % (Auto) 2.1 Baso % (Auto) 0.5 Absolute Neuts (auto) 3.8 Absolute Lymphs (auto) 1.84 Nucleated RBC % 0 PT 11.6 L INR 0.9 Sodium 136 Potassium 3.9 Chloride 101 Carbon Dioxide 27.0 Anion Gap 8 BUN 14 Creatinine 0.80 Estim Creat Clear Calc 91.81 Est GFR (MDRD) Af Amer 103 Est GFR (MDRD) Non-Af 85 BUN/Creatinine Ratio 17.5 Glucose 326 H Hemoglobin A1c Calcium 9.6 Troponin I < 0.015 POC Glucose 05/09/24/20 09/24/20 16:44 21:22 22:48 WBC RBC Hgb Hct MCV MCH MCHC RDW Std Deviation RDW Coeff of [place] Plt Count MPV Immature Gran % (Auto) Neut % (Auto) Lymph % (Auto) [place] % (Auto) Eos % (Auto) Baso % (Auto) Absolute Neuts (auto) Absolute Lymphs (auto) Nucleated RBC % PT INR Sodium Potassium Chloride Carbon Dioxide Anion Gap BUN Creatinine Estim Creat Clear Calc Est GFR (MDRD) Af Amer Est GFR (MDRD) Non-Af BUN/Creatinine Ratio Glucose Hemoglobin A1c 11.0 H Calcium Troponin I < 0.015 POC Glucose 268 H 09/25/20 09/25/20 09/25/20 00:20 05:26 05:26 WBC 5.6 RBC 4.26 Hgb 11.6 L Hct 36.2 L MCV 85.0 MCH 27.2 MCHC 32.0 RDW Std Deviation 46.5 H RDW Coeff of [place] 15.0 H Plt Count 260 MPV 9.8 Immature Gran % (Auto) 0.200 Neut % (Auto) 45.0 L Lymph % (Auto) 41.7 H [place] % (Auto) 9.4 Eos % (Auto) 3.2 Baso % (Auto) 0.5 Absolute Neuts (auto) 2.5 Absolute Lymphs (auto) 2.34 Nucleated RBC % 0 PT INR Sodium 138 Potassium 3.6 Chloride 104 Carbon Dioxide 27.0 Anion Gap 7 BUN 12 Creatinine 0.67 Estim Creat Clear Calc 109.63 Est GFR (MDRD) Af Amer 125 Est GFR (MDRD) Non-Af 103 BUN/Creatinine Ratio 17.8 Glucose 240 H Hemoglobin A1c Calcium 8.4 L Troponin I < 0.015 POC Glucose 09/25/20 09/25/20 09:07 13:24 WBC RBC Hgb Hct MCV MCH MCHC RDW Std Deviation RDW Coeff of [place] Plt Count MPV Immature Gran % (Auto) Neut % (Auto) Lymph % (Auto) [place] % (Auto) Eos % (Auto) Baso % (Auto) Absolute Neuts (auto) Absolute Lymphs (auto) Nucleated RBC % PT INR Sodium Potassium Chloride Carbon Dioxide Anion Gap BUN Creatinine Estim Creat Clear Calc Est GFR (MDRD) Af Amer Est GFR (MDRD) Non-Af BUN/Creatinine Ratio Glucose Hemoglobin A1c Calcium Troponin I POC Glucose 222 H 210 H Radiography Diagnostic Testing: Radiology Impression Chest X-Ray 09/24/20 16:25 IMPRESSION: Normal x-ray examination of the chest. Electronically Signed: Jonathan James MD at 16:41 EDT , Service support , Physical Exam Const alert, oriented x3 and no apparent distress Exam Limitations: no limitations Nutritional Appearance: overweight HEENT head/scalp atraumatic and moist oral mucous membranes Eyes PERRL, EOMs intact bilaterally and conjunctivae normal Neck no lymphadenopathy, supple and no JVD Resp normal respiratory effort, no retractions, no use of accessory muscles and clear to auscultation bilaterally Cardio regular rate, regular rhythm, S1 normal heart sound, S2 normal heart sound and no murmurs GI normal to inspection, nondistended, normoactive bowel sounds, soft to palpation, non-tender and non-distended Extremity normal to inspection, full ROM and no clubbing, cyanosis or edema Peripheral Pulses: Yes pulses 2+ throughout Skin no rashes or lesions noted Neuro oriented x3 Sensorium / Orientation: awake and alert Psych affect normal Assessment & Plan Assessment/Plan (1) Unstable angina: (2) Diabetes mellitus type 1: (3) Chronic systolic (congestive) heart failure: PLAN: #Unstable angina * Still had chest pain overnight. Cardiology on board. * And sublingual nitroglycerin as needed. Pure aspirin 81 mg daily. Also on Plavix. * Imdur discontinued today per cardiology on account of patient complaining of headache. * For cardiac cath on Sunday. Patient wanted to be discharged home to come back for the cardiac cath but I counseled her that in light of her ongoing chest pain, * it was not a good idea for her to go home. * #CAD: * Had cardiac cath in April 2020 which showed 70% proximal RCA stenosis and plan was for her to be treated medically. * For repeat cardiac cath on Sunday as stated above. * #Type 1 diabetes mellitus: * Poorly controlled. Last A1c was 11.1. * Continue home dose of Lantus 35 units daily. I * nsulin sliding scale. Accu-Cheks before meals at bedtime. * #Hypertension: On metoprolol. Imdur discontinued on account of headache. #Hyperlipidemia: On statin DVT prophylaxis: Lovenox Visit Charges Inpatient E&M: 52316 Subs Hosp L3
[2020-09-25 18:41] LABS: Bedside Glucose 186 mg/dL (70-110)
[2020-09-25] MEDS: Gabapentin 600 MG Tablet 1200 MG PO (22:10)
[2020-09-25] MEDS: Metoprolol Tartrate 25 MG Tablet 12.5 MG PO (22:10)
[2020-09-25] MEDS: Atorvastatin Calcium 80 MG Tablet PO (22:11)
[2020-09-26] MEDS: Zolpidem Tartrate 5 MG Tablet PO (00:31)
[2020-09-26] MEDS: Acetaminophen 325 MG Tablet 650 MG PO (00:54)
[2020-09-26 01:06] LABS: Bedside Glucose 199 mg/dL (70-110)
[2020-09-26 02:00] VITALS: BP 113/64; PULSE 79; RESP 16; TEMP 36.6; O2SAT 98
[2020-09-26 03:00] VITALS: PULSE 80
[2020-09-26 05:28] LABS: Absolute Lymphocyte Count 2.12 X10^3/uL (0.83-4.51); Absolute Neutrophil Count 3.9 X10^3/uL (2.0-7.7); Basophil# 0.04 X10^3/uL; Basophil% 0.6 % (0-1); Eosinophil# 0.21 X10^3/uL; Eosinophils% 3.1 % (0-5); Hemoglobin 11.1 g/dL (12.0-15.0); Lymphocyte # 2.12 X10^3/ul (0.83-4.51); Lymphocyte % 30.9 % (19-41); Mean Corp Hgb Conc 31.7 g/dL (32-36); Mean Corpuscular Hgb 26.9 pg (27.0-32.0); Mean Platelet Vol. 9.9 fl (6.2-12.0); Monocyte# 0.58 X10^3/uL; Monocyte% 8.5 % (0-10); NRBC Flagged by Analyzer 0 % (0-5); Neutrophil # 3.88 X10^3/uL (2.7-7.7); Neutrophil % 56.6 % (47-70); Platelet Count 272 K/mm3 (150-450); RBC Distribution Width CV 14.7 % (11.6-14.6); RBC Distribution Width SD 45.3 fl (35.1-43.9); Red Blood Count 4.12 M/mm3 (4.2-5.4); White Blood Count 6.9 K/mm3 (4.4-11.0)
[2020-09-26 05:44] LABS: Anion Gap 6 (5-15); BUN 18 mg/dL (7-18); BUN/Creat Ratio 25.7 RATIO (10-20); Calcium,Total 8.8 mg/dL (8.5-10.1); Chloride 106 mmol/L (98-107); EST Glomerular Filtration Rate 99 mL/min (>60); Est Glom Filt Rate - Afr Amer 119 mL/min (>60); Estimated Creatinine Clearance 104.93 ml/min; Glucose 220 mg/dL (74-106); Potassium 4.1 mmol/L (3.5-5.1); Sodium Level 139 mmol/L (136-145)
[2020-09-26] MEDS: Acyclovir 200 MG Capsule 400 MG PO (06:30)
[2020-09-26 06:36] LABS: Bedside Glucose 222 mg/dL (70-110)
[2020-09-26 07:00] VITALS: PULSE 78
[2020-09-26 07:41] VITALS: O2SAT 96
[2020-09-26 09:45] VITALS: BP 110/70; PULSE 82; RESP 16; TEMP 36.6; O2SAT 97
[2020-09-26] MEDS: Gabapentin 300 MG Capsule PO (09:54)
[2020-09-26] MEDS: Ranolazine 500 MG Tablet 1000 MG PO (09:54)
[2020-09-26] MEDS: Sertraline 100 MG Tablet PO (09:54)
[2020-09-26] MEDS: Aspirin 81 MG TAB.CHEW PO (09:55)
[2020-09-26] MEDS: Loratadine 10 MG Tablet PO (09:56)
[2020-09-26 09:57] VITALS: PULSE 82
[2020-09-26] MEDS: Metoprolol Tartrate 25 MG Tablet 12.5 MG PO (09:57)
[2020-09-26] MEDS: Clopidogrel Bisulfate 75 MG Tablet PO (10:01)
[2020-09-26] MEDS: Insulin Lispro 100 UNIT/ML INSULN.PEN SC (10:02)
[2020-09-26] MEDS: Insulin Lispro 100 UNIT/ML INSULN.PEN 26 UNIT SC (10:03)
[2020-09-26 12:16] LABS: Bedside Glucose 225 mg/dL (70-110)
--- NOTE | 2020-09-26 12:50 | PCM.PN.CARD ---
Subjective Subjective Patient seen today at bedside along with the nursing staff She is stable clinically she had no symptoms of chest pain to report. Objective Data Vital Signs: Vital Signs Temp Pulse Resp BP Pulse Ox 97.8 F 82 16 110/70 97 09/26/20 09:45 09/26/20 09:57 09/26/20 09:45 09/26/20 09:45 09/26/20 09:45 Oxygen Flow Rate (L/min) 3 Oxygen Delivery Method Room Air Weight: 212 lb 6.646 oz Body Mass Index (BMI) 33.3 Intake & Output: Intake and Output for Last 24 Hours 09/24/20 09/25/20 09/26/20 23:59 23:59 23:59 Intake Total 1651.25 / 1651.25 220 / 220 Balance 1651.25 / 1651.25 220 / 220 Lab / Micro Data Result Diagrams: 09/26/20 05:16 09/26/20 05:16 Labs: Laboratory Results - last 24 hr 09/25/20 09/25/20 09/25/20 13:24 18:14 22:08 WBC RBC Hgb Hct MCV MCH MCHC RDW Std Deviation RDW Coeff of [place] Plt Count MPV Immature Gran % (Auto) Neut % (Auto) Lymph % (Auto) [place] % (Auto) Eos % (Auto) Baso % (Auto) Absolute Neuts (auto) Absolute Lymphs (auto) Nucleated RBC % Sodium Potassium Chloride Carbon Dioxide Anion Gap BUN Creatinine Estim Creat Clear Calc Est GFR (MDRD) Af Amer Est GFR (MDRD) Non-Af BUN/Creatinine Ratio Glucose Calcium POC Glucose 210 H 186 H 199 H 09/26/20 09/26/20 09/26/20 05:16 05:16 06:27 WBC 6.9 RBC 4.12 L Hgb 11.1 L Hct 35.0 L MCV 85.0 MCH 26.9 L MCHC 31.7 L RDW Std Deviation 45.3 H RDW Coeff of [place] 14.7 H Plt Count 272 MPV 9.9 Immature Gran % (Auto) 0.300 Neut % (Auto) 56.6 Lymph % (Auto) 30.9 [place] % (Auto) 8.5 Eos % (Auto) 3.1 Baso % (Auto) 0.6 Absolute Neuts (auto) 3.9 Absolute Lymphs (auto) 2.12 Nucleated RBC % 0 Sodium 139 Potassium 4.1 Chloride 106 Carbon Dioxide 27.0 Anion Gap 6 BUN 18 Creatinine 0.70 Estim Creat Clear Calc 104.93 Est GFR (MDRD) Af Amer 119 Est GFR (MDRD) Non-Af 99 BUN/Creatinine Ratio 25.7 H Glucose 220 H Calcium 8.8 POC Glucose 222 H 09/26/20 09:53 WBC RBC Hgb Hct MCV MCH MCHC RDW Std Deviation RDW Coeff of [place] Plt Count MPV Immature Gran % (Auto) Neut % (Auto) Lymph % (Auto) [place] % (Auto) Eos % (Auto) Baso % (Auto) Absolute Neuts (auto) Absolute Lymphs (auto) Nucleated RBC % Sodium Potassium Chloride Carbon Dioxide Anion Gap BUN Creatinine Estim Creat Clear Calc Est GFR (MDRD) Af Amer Est GFR (MDRD) Non-Af BUN/Creatinine Ratio Glucose Calcium POC Glucose 225 H Cardiology Labs/Tests 09/26/20 05:16: WBC 6.9, RBC 4.12 L, Hgb 11.1 L, Hct 35.0 L, MCV 85.0, MCH 26.9 L, MCHC 31.7 L, Plt Count 272, MPV 9.9, Immature Gran % (Auto) 0.300, Neut % (Auto) 56.6, Lymph % (Auto) 30.9, [place] % (Auto) 8.5, Eos % (Auto) 3.1, Baso % (Auto) 0.6, Absolute Neuts (auto) 3.9, Nucleated RBC % 0 09/26/20 05:16: Sodium 139, Potassium 4.1, Chloride 106, Carbon Dioxide 27.0, Anion Gap 6, BUN 18, Creatinine 0.70, Est GFR (MDRD) Af Amer 119, Est GFR (MDRD) Non-Af 99, BUN/Creatinine Ratio 25.7 H, Glucose 220 H, Calcium 8.8 Rhythm: EKG: ECHO: Stress Test: Cardiac Cath: PCI: CT Surgery: Holter monitor: EPS: PPM: CXR: Chest CT Scan: Physical Exam Narrative Patient alert orientated comfortable has no active symptoms of chest pain at time of evaluation Cardiac exam S1-S2 regular there is no murmur no systolic or diastolic murmur Chest examination is clear to auscultation with no added sounds. Examination of the abdomen is soft Examination of central nervous system no neurological deficit noted. Assessment & Plan Assessment/Plan (1) Unstable angina: (2) CAD (coronary artery disease), [place] coronary artery: (3) Old anterior wall myocardial infarction: (4) History of coronary artery stent placement: PLAN: Patient 40-year-old who admitted with symptoms of chest pain Patient known to have history of CAD with prior anterior PR with coronary artery stenting 2013 as well as at the PCI and stent of the RCA She had a work-up with a series of cardiac biomarkers which were negative with normal high sensitive troponins On cardiac telemetry she had been within normal sinus Symptoms of chest pain resolved. She was anxious to be discharged home with the plan of follow-up by cardiac catheterization on Sunday Recommendation plan; 1. I reviewed and discussed current medication with the patient and nursing staff will continue the current treatment reduce the dose of metoprolol to 12.5 twice daily continue on dual antiplatelet therapy with aspirin Plavix 2. 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 Patient can be discharged from cardiac standpoint, cardiac care plan discussed with the nursing staff, the patient as well as the medical team. (5) Essential (primary) hypertension: (6) Hyperlipidemia:
--- NOTE | 2020-09-26 13:15 | PCM.DC.SUM ---
Providers Date of Admission: 09/24/20 Primary Care Physician: Dr. Jhony Smith MD Consultations 09/24/20 20:11 Consult: Cardiology Routine Consulting Provider: Nivia Castro Reason for Consult: Angina pectoris EMERGENT Consult: No MD Notified: Yes Date Notified:: 09/24/20 Time Notified: 19:15 Method of Notification: Verbal Reason For Visit: CHEST PAIN, ANGINA PECTORIS Diagnosis Discharge Diagnosis (1) Unstable angina: Status: Acute Code(s): I20.0 - Unstable angina (2) CAD (coronary artery disease), [place] coronary artery: Status: Chronic Code(s): I25.10 - Atherosclerotic heart disease of [place] coronary artery without angina pectoris (3) Old anterior wall myocardial infarction: Status: Chronic Code(s): I25.2 - Old myocardial infarction (4) History of coronary artery stent placement: Status: Chronic Code(s): Z95.5 - Presence of coronary angioplasty implant and graft (5) Essential (primary) hypertension: Status: Chronic Code(s): I10 - Essential (primary) hypertension (6) Hyperlipidemia: Status: Chronic Code(s): E78.5 - Hyperlipidemia, unspecified Medications at Discharge Home Medications aspirin 81 mg PO DAILY 03/04/15 sertraline 100 mg PO DAILY 11/25/15 insulin lispro 26 units SQ TIDCM 05/02/18 insulin lispro See Protocol SQ TIDCM 05/02/18 gabapentin 300 mg PO DAILY 06/16/18 ondansetron 4 mg PO Q8H PRN PRN #10 tab 06/16/18 gabapentin 1,200 mg PO QHS 12/04/18 acyclovir 400 mg PO TID 09/13/19 insulin degludec 35 unit SQ BID 09/13/19 magnesium oxide 400 mg (241.3 mg magnesium) tablet 400 mg PO BID #60 tab 09/29/19 nitroglycerin 0.4 mg sublingual tablet 0.4 mg SUBLINGUAL Q5M PRN #1 bottle 05/04/20 ranolazine 1,000 mg PO BID 05/04/20 atorvastatin 80 mg tablet 80 mg PO QHS #90 tab 08/02/20 clopidogrel 75 mg PO QHS 09/24/20 loratadine [Claritin] 10 mg PO DAILY 09/24/20 metoprolol tartrate 12.5 mg PO BID #30 tab 09/26/20 Hospital Course Operations None Procedures None Summary of Care Provided Minutes Spent on Discharge: 40 Hospital Course: Patient is a 40-year-old female with an extensive past medical history as outlined below who was admitted through the ED on 09/24/2020 with a complaint of chest pain. Symptoms have been going on for about 2 weeks prior to admission and was mainly exertional, intermittent, squeezing in nature with associated shortness of breath, nausea and diaphoresis with no relieving or aggravating factors. Pain has gradually gotten worse over the 3 days prior to admission. 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 Symptoms however worsened after she went home so she decided to come into the ED. Patient had had a cardiac cath in October 2020 which showed 70% stenosis of the RCA and she was initially referred for PCI but decision was subsequently made to manage her conservatively. Troponins x3 were negative. She was admitted to be managed for unstable angina. Cardiology was consulted. Patient also said she had been getting lightheadedness and dizziness which she thought was due to her dose of Imdur and metoprolol. Imdur was discontinued and metoprolol was decreased to 12.5 mg twice daily. Patient chest pain resolved and did not recur during admission. She remained stable and requested to be discharged home to come back for cardiac cath. This was discussed with cardiology who are also on board with her going home and coming back for the cardiac cath. Cardiac cath was scheduled for 09/28/2020 at 7 AM. Patient was therefore discharged home on 09/26/2020. Patient was seen and examined prior to discharge. She had no complaints. Review of symptoms otherwise negative. Labs and vitals reviewed. Her medication reviewed and reconciled. Physical Exam Const alert, oriented x3, no apparent distress and no limitations General Appearance: cooperative, comfortable and well kempt Exam Limitations: no limitations Nutritional Appearance: overweight HEENT normocephalic, head/scalp atraumatic and moist oral mucous membranes Eyes PERRL, EOMs intact bilaterally, conjunctivae normal and no scleral icterus General Eye: normal appearance of both eyes Periorbital: periorbital findings normal Neck no lymphadenopathy, supple, no meningeal signs, no JVD and no carotid bruits General: trachea midline Thyroid: thyroid normal Resp normal respiratory effort, normal air movement, no retractions, no use of accessory muscles and clear to auscultation bilaterally Auscultation: Negative for crackles, rales, rhonchi or wheezes Cardio regular rate, regular rhythm, S1 normal heart sound, S2 normal heart sound, no murmurs and no JVD Peripheral Pulses: pulses 2+ throughout GI normal to inspection, nondistended, normoactive bowel sounds, soft to palpation, non-tender and non-distended; Negative for hepatosplenomegaly Auscultation: normoactive bowel sounds Extremity normal to inspection, full ROM and no clubbing, cyanosis or edema Skin no rashes or lesions noted, no wounds and no petechiae Neuro oriented x3, CN's II-XII intact bilaterally and moves all extremities Sensorium / Orientation: awake and alert Speech: speech normal Motor Exam: strength 5/5 throughout Psych mental status grossly normal, affect normal and denies hallucinations ABG / Lab / Microbiology Data Result Diagrams: 09/26/20 05:16 09/26/20 05:16 Laboratory: Laboratory Results - last 24 hr 09/25/20 09/25/20 09/25/20 13:24 18:14 22:08 WBC RBC Hgb Hct MCV MCH MCHC RDW Std Deviation RDW Coeff of [place] Plt Count MPV Immature Gran % (Auto) Neut % (Auto) Lymph % (Auto) [place] % (Auto) Eos % (Auto) Baso % (Auto) Absolute Neuts (auto) Absolute Lymphs (auto) Nucleated RBC % Sodium Potassium Chloride Carbon Dioxide Anion Gap BUN Creatinine Estim Creat Clear Calc Est GFR (MDRD) Af Amer Est GFR (MDRD) Non-Af BUN/Creatinine Ratio Glucose Calcium POC Glucose 210 H 186 H 199 H 09/26/20 09/26/20 09/26/20 05:16 05:16 06:27 WBC 6.9 RBC 4.12 L Hgb 11.1 L Hct 35.0 L MCV 85.0 MCH 26.9 L MCHC 31.7 L RDW Std Deviation 45.3 H RDW Coeff of [place] 14.7 H Plt Count 272 MPV 9.9 Immature Gran % (Auto) 0.300 Neut % (Auto) 56.6 Lymph % (Auto) 30.9 Bowman % (Auto) 8.5 Eos % (Auto) 3.1 Baso % (Auto) 0.6 Absolute Neuts (auto) 3.9 Absolute Lymphs (auto) 2.12 Nucleated RBC % 0 Sodium 139 Potassium 4.1 Chloride 106 Carbon Dioxide 27.0 Anion Gap 6 BUN 18 Creatinine 0.70 Estim Creat Clear Calc 104.93 Est GFR (MDRD) Af Amer 119 Est GFR (MDRD) Non-Af 99 BUN/Creatinine Ratio 25.7 H Glucose 220 H Calcium 8.8 POC Glucose 222 H 09/26/20 09:53 WBC RBC Hgb Hct MCV MCH MCHC RDW Std Deviation RDW Coeff of [place] Plt Count MPV Immature Gran % (Auto) Neut % (Auto) Lymph % (Auto) Bow[place] % (Auto) Eos % (Auto) Baso % (Auto) Absolute Neuts (auto) Absolute Lymphs (auto) Nucleated RBC % Sodium Potassium Chloride Carbon Dioxide Anion Gap BUN Creatinine Estim Creat Clear Calc Est GFR (MDRD) Af Amer Est GFR (MDRD) Non-Af BUN/Creatinine Ratio Glucose Calcium POC Glucose 225 H D/C Instructions Discharge Diet: 2000 mg Sodium Diet Discharge Activity: Return to Normal Activity Weight Bearing Status: Weight bearing as tolerated Call your doctor if you observe: Fever of 101 or Higher, Shortness of breath, Dizziness, Swelling in the ankles, Chest pain and Increased palpitations (irregular heartbeat) Please Follow Up With: pcp When: 1-2 weeks Meaningful Use Info Meaningful Use Diagnoses (Choose all that apply): None applicable Discharge Plan Admission Admit Date/Time: 09/24/20 19:18 Primary Reason for Your Visit: unstable angina Attending Provider: Lisa Mcihel Primary Care Provider: Jhony Smith Consulting Providers: Marla Bragg ; Yong Ma ; Jc Luna ; Estuardo Tang ; Gus Muhammad ; Jamshid Calhoun ; Naveen Gongora ; Ron Tomlinson ; Teodoro Salmeron ; Clark Mckay ; Rom Arroyo PRINTED CIRCUIT BOARDS SOLDER LEVELER ; Amy Sousa PRINTED CIRCUIT BOARDS SOLDER LEVELER ; Uyen Rhodes PA Instructions Additional Instructions / Restrictions: Patient Problems: Altered Health Status related to Hospitalization Patient Goals: *Optimal Level of Health *Keep Appointments *Medication Compliance *Remain Safe Discharge Orders/Prescriptions Prescriptions: New metoprolol tartrate 25 mg Tablet 12.5 mg PO BID Qty: 30 RF: 1 Continued aspirin 81 MG tablet,chewable 81 mg PO DAILY RF: 0 sertraline 100 MG tablet 100 mg PO DAILY RF: 0 insulin lispro 100 insulin pen 26 units SQ TIDCM RF: 0 insulin lispro 100 insulin pen See Protocol unit SQ TIDCM RF: 0 gabapentin 300 MG capsule 300 mg PO DAILY RF: 0 ondansetron 4 MG tablet 4 mg PO Q8H PRN PRN (Reason: Nausea) Qty: 10 RF: 0 gabapentin 300 MG capsule 1,200 mg PO QHS RF: 0 acyclovir 400 MG tablet 400 mg PO TID RF: 0 insulin degludec 100 UNIT/ML solution 35 unit SQ BID RF: 0 ranolazine 1,000 MG tablet extended release 12 hr 1,000 mg PO BID RF: 0 loratadine [Claritin] 10 mg Tablet 10 mg PO DAILY RF: 0 clopidogrel 75 mg tablet 75 mg PO QHS RF: 0 magnesium oxide 400 mg (241.3 mg magnesium) tablet 400 mg PO BID Qty: 60 RF: 11 nitroglycerin 0.4 mg tablet, sublingual 0.4 mg SUBLINGUAL Q5M PRN (Reason: Chest Pain) Qty: 1 RF: 0 atorvastatin 80 mg tablet 80 mg PO QHS Qty: 90 RF: 3 Discontinued metoprolol tartrate 25 MG tablet 50 mg PO DAILY RF: 0 isosorbide mononitrate 60 MG tablet 60 mg PO DAILY Qty: 30 RF: 0 Referrals / Follow Up: Yong Ma MD [STAFF PHYSICIAN] - 09/28/20 (Follow up for Cardiac cath with Dr. Ma on Sunday09/28/2020) Jhony Smith MD [Primary Care Provider] - In 1 Week Disposition Disposition (needs filled in before D/C Order can be placed): Home, self care Visit Charges Inpatient E&M: 05112 Disch Hosp
--- NOTE | 2020-09-28 14:08 | CASEMGMT ---
MARIA VICTORIA MARTINS Discharge Follow Up Phone Call: LARISSAE: Carlene Strata:4 Call Date: 09.28.20 Discharge Date: 09.26.20 Time of Call:1407 Duration:<1 min Admitting Dx: DESIRE IRENE CM attempted to complete follow up phone call after recent hospitalization. No answer. Left with call back information. Pt was scheduled for heart cath this date at 7am.
== END 2020-09-26 13:57 | disposition home or self-care (01) | DRG 198 ==
LOC: ED 17:26 → PCU 19:52
PROVIDERS: Admitting Provider Hospitalist; Emergency Provider Student in an Organized Health Care Education/Training Program; PCP Internal Medicine; Visit Provider Student in an Organized Health Care Education/Training Program
DX: I25.110 Atherosclerotic heart disease of native coronary artery with unstable angina pectoris (principal); E78.5 Hyperlipidemia, unspecified; Z95.5 Presence of coronary angioplasty implant and graft; I25.2 Old myocardial infarction; I25.5 Ischemic cardiomyopathy; E10.9 Type 1 diabetes mellitus without complications; F32.9 Major depressive disorder, single episode, unspecified; F41.9 Anxiety disorder, unspecified; Z79.4 Long term (current) use of insulin; I11.0 Hypertensive heart disease with heart failure; I50.22 Chronic systolic (congestive) heart failure; K75.81 Nonalcoholic steatohepatitis (NASH); G47.30 Sleep apnea, unspecified; Z79.82 Long term (current) use of aspirin; Z82.49 Family history of ischemic heart disease and other diseases of the circulatory system; Z83.3 Family history of diabetes mellitus; Z85.118 Personal history of other malignant neoplasm of bronchus and lung; Z86.73 Personal history of transient ischemic attack (TIA), and cerebral infarction without residual deficits; Z88.0 Allergy status to penicillin; Z88.2 Allergy status to sulfonamides; Z91.041 Radiographic dye allergy status; Z98.1 Arthrodesis status; Z98.51 Tubal ligation status
CPT/HCPCS: 36415; 71045; 80048; 82962; 83036; 84484; 85025; 85610; 93005; 99285; J7030; A4216

== ENCOUNTER 2020-09-29 06:24 | Day surgery (SDC) | payer MEDICAID, SELFPAY ==
[2020-09-24 08:40] VITALS: BMI 33.8
[2020-09-24 20:09] VITALS: BMI 33.3
[2020-09-28 09:50] VITALS: BMI 33.8
[2020-09-29] VITALS (16 sets, daily range): BP systolic 97–114; BP diastolic 62–76; PULSE 79–90; RESP 12–18; TEMP 36.4–36.9; O2SAT 96–99
[2020-09-29 06:37] LABS: Internal QC Validated? YES +Cl - CLEAR BKGD; Pregnancy, Urine Negative Negative
--- NOTE | 2020-09-29 08:28 | CL.D_ITS ---
Patient Name: LATA STONE Study Date: 09/29/2020 Performing: Yong Ma MD Ht: 66.92 inches 170 cm : 1980 Wt: 216.05 lbs 98 kg Age: 40 Gender: female BSA: 2.09 PROCEDURE(S) PERFORMED EG80-ZOO/COR/LV UL89-KTG W OR WO PTCA, SINGLE CORONARY ARTERY CLINICAL PROFILE AND INDICATIONS Indications: Worsening Angina Heart Failure: None Stress/Imaging Stress/Image Study Performed: No CAD Presentations: Unstable angina. CONCLUSIONS Significant right coronary artery stenosis proximally. Previously placed stent in the LAD is patent. Small diagonal vessels with ostial stenosis. RECOMMENDATIONS Referred for immediate PCI DESCRIPTION OF PROCEDURE The patient arrived to the procedure lab. The risks and benefits of the procedure as well as a full d escription of our services here and current unavailability of surgical backup were fully explained to the patient and/or their significant other prior to the catheterization. The Timeout was completed, verifying the correct patient and procedure. The patient's procedural site was prepped and draped in the usual fashion. Local anesthetic was given subcutaneously to right radial region with Lidocaine 2% . Using a modified Seldinger technique, arterial access was obtained via the right radial artery, a 6 Fr sheath was inserted. Right Coronary Artery selective angiography was then performed in multiple v iews using a 5 Fr. 4.0 [place] catheter. Left Coronary Artery selective angiography was performed in mu ltiple views using a 5 Fr. 4.0 [place] catheter. Left Ventriculography was performed in CABRERA projection using a 5 Fr. Pigtail catheter. LV to AO pullback pressures were then recorded. CORONARY ANGIOGRAPHY DOMINANCE: Right Dominant LEFT HEART ASSESSMENT Left Ventricular Ejection Fraction: by LV Gram 60 % Normal LV wall motion Normal Left Ventricular systolic function LEFT MAIN: Angiographically normal LEFT ANTERIOR DESCENDING ARTERY: MID LAD: Previously placed stent is patent DIAGONAL 1: Ostial - 80 % Stenosis DIAGONAL 2: Ostial - 80 % Stenosis CIRCUMFLEX ARTERY: Mild luminal irregularities RIGHT CORONARY ARTERY: PROX RCA: 80 % Stenosis COMPLICATIONS PROCEDURE MEDICATIONS Fentanyl 50 mcg IV Versed 1 mg IV Versed 1 mg IV Fentanyl 25 mcg IV Versed 1 mg IV Fentanyl 25 mcg IV Oxygen: 2 L/min via nasal cannula Benadryl 25 mg IV @ 09/29/2020 07:49:19 Heparin 5000 unit(s) IV 09/29/2020 08:23:29 Solu-cortef 100 mg IV 09/29/2020 07:49:08 SUMMARY OF HEMODYNAMIC DATA Time AIR REST ECG 06:57:52 AO 110/73 (90) SA 08:08:52 LV 120/3, 18 08:15:43 LV 119/3, 17 08:15:49 LVp 125/10, 21 08:16:41 AOp 131/82 (105) 08:16:46 LVp 130/81, 86 08:16:54 AOp 0/-24 (13) 08:16:59 Signed By Yong Ma MD On 09/29/2020 8:27:37 AM Yong Ma MD
--- NOTE | 2020-09-29 09:15 | EKG12_ITS ---
Test Reason : POST PCI Blood Pressure : / mmHG Vent. Rate : 082 BPM Atrial Rate : 082 BPM P-R Int : 176 ms QRS Dur : 106 ms QT Int : 422 ms P-R-T Axes : 047 011 059 degrees QTc Int : 493 ms Normal sinus rhythm Low voltage QRS Borderline ECG When compared with ECG of 25-SEP-2020 05:35, MANUAL COMPARISON REQUIRED, DATA IS UNCONFIRMED Confirmed by SARA MITCHELL, YONG ([id number]), film or videotape editor MITA HAN ([id number]) on 09/30/2020 12:42:43 PM Referred By: Yong Ma Confirmed By:YONG MA MD
[2020-09-29] MEDS: 0.9% Normal Saline 1,000 ML 80 ML IV (09:58)
--- NOTE | 2020-09-29 09:59 | CL.I_ITS ---
Patient Name: LATA STONE Study Date: 09/29/2020 Performing: Ann Tomlinson MD Ht: 67 inches 170 cm : 1980 Wt: 216.3 lbs 98 kg Age: 40 Gender: female BSA: 2.09 PROCEDURE(S) PERFORMED [id number] W OR WO PTCA, SINGLE CORONARY ARTERY CLINICAL PROFILE AND CO-MORBIDITIES Indications: Worsening Angina Heart Failure: None Stress/Imaging Stress/Image Study Performed: No CAD Presentations: Unstable angina. CONCLUSIONS Successful INOCENCIA to pRCA RECOMMENDATIONS DESCRIPTION OF PROCEDURE The patient arrived to the procedure lab. The risks and benefits of the procedure as well as a full d escription of our services here and current unavailability of surgical backup were fully explained to the patient and/or their significant other prior to the catheterization. The Timeout was completed, verifying the correct patient and procedure. The patient's procedural site was prepped and draped in the usual fashion. Local anesthetic was given subcutaneously to right radial region with Lidocaine 2% Using a modified Seldinger technique,arterial access was obtained via the right radial artery, a 6Fr sheath was inserted. Right Coronary Artery selective angiography was then performed in multiple view s using a 5 Fr. 4.0 [place] catheter. Left Coronary Artery selective angiography was performed in multi ple views using a 5 Fr. 4.0 [place] catheter. Left Ventriculography was performed in CABRERA projection usi ng a 5 Fr. Pigtail catheter. LV to AO pullback pressures were then recorded.The images were reviewed and options discussed. A decision was then made to proceed with an Intervention, IVUS o r other adjunct procedure. JR 4 Guide catheter was inserted and engaged into the RCA. BMW Guide wire was advanced to the RCA . Angiogram performed post stent deployment. 3.0 x 15 [place] Balloon catheter was inserted post st ent. PTCA balloon inflated at 16 atms for 16 secs. Angiogram performed post balloon dilatation. The arterial sheath was pulled and a TR Band was applied for hemostasis INTERVENTION INFORMATION LESION SITE: RCA (Proximal) Lesion Complexity: High/C, chronic total occlusion: No, lesion at bifurcation: No, thrombus present: No, lesion length: 12 mm, culprit lesion: Yes, Previously treated lesion: No Pre Stenosis: 80 % Pre intervention SALLIE flow: 3 PROCEDURE: Drug Eluting Stent with post dilatation Post Stenosis: 0 % Post intervention SALLIE flow: 3 Lesion Devices: Medtronic 6 Fr JR4.0 100cm Guide Catheter Robbins .014 BMW [place] Straight 190cm Chris Sci NC EMERGE MR 3.00x15 BALLOON COMPLICATIONS No Complications PROCEDURE MEDICATIONS Fentanyl 50 mcg IV Versed 1 mg IV Versed 1 mg IV Fentanyl 25 mcg IV Versed 1 mg IV Fentanyl 25 mcg IV Versed 1 mg IV Oxygen: 2 L/min via nasal cannula Benadryl 25 mg IV @ 09/29/2020 07:49:19 Heparin 5000 unit(s) IV 09/29/2020 08:23:29 Solu-cortef 100 mg IV 09/29/2020 07:49:08 SUMMARY OF HEMODYNAMIC DATA Time AIR REST ECG 06:57:52 AO 110/73 (90) SA 08:08:52 LV 120/3, 18 08:15:43 LV 119/3, 17 08:15:49 LVp 125/10, 21 08:16:41 AOp 131/82 (105) 08:16:46 LVp 130/81, 86 08:16:54 AOp 0/-24 (13) 08:16:59 AO 133/68 (100) 08:27:49 RM AIR REST 08:28:23 Signed By Ann Tomlinson MD On 09/29/2020 9:58:20 AM Ann Tomlinson MD
[2020-09-29 11:30] LABS: Bedside Glucose 341 mg/dL (70-110)
--- NOTE | 2020-09-29 13:05 | CRPHASE1_ITS ---
Patient Communication Former Patient:: Phase I PHII Cardiac Rehab Discussed with Patient:: Yes Guide to Cardiac Rehab Given to Patient:: Yes Cardiac Rehab Facility Choice List Given to Patient:: Yes Choice Program [facility] CR PHII:: Communication Given to CR Choice Program Other:: Communication Given to CR Patient Financial Counselor:: Ron Tomlinson Refer Phase II Cardiac Rehab:: Yes Sessions:: 36 sessions - 3 days/wk, 12 weeks - pt might go to [facility]- pt lives in [place] Cardiac Rehabilitation Info Cardiac Rehabilitation Program Information: Cardiac Rehabilitation is important for patients like you who are recovering from a heart problem. Cardiac rehabilitation programs are recognized as integral to the continued care of the patient with coronary heart disease. The cardiac rehabilitation program is designed to optimize a patient's physical, psychological, and social functioning. Health tire care manager work in cardiac rehabilitation programs and assist you with getting the treatments you need to get stronger and healthier - like exercise, healthy eating habits, and medications. Cardiac rehabilitation has been show to help people with heart problems live longer and have better life enjoyment than people who do not go to cardiac rehabilitation. Please contact the Cardiac Rehabilitation Program at [facility] at in two weeks if you have not heard from them.
--- NOTE | 2020-09-29 13:07 | CRPH1.INSTRU ---
General Education CAD and cardiac anatomy and function:: Patient communicates acknowledgment Explanation of diagnoses and procedures:: Patient communicates acknowledgment Sign/Symptoms of MA:: Patient communicates acknowledgment Antiplatelet therapy: Patient communicates acknowledgment Smoking Patient Nicotine/Smoking Risk Factors Are:: Never smoked Dyslipidemia Patient Dyslipidemia Risk Factors Are:: Total Cholesterol, Triglycerides, HDL, LDL Recommendations Include:: Lipid profile provided, Reviewed NCEP/ATP guidelines, Therapeutic Lifestyle Change dietary guidelines Dyslipidemia Response Code:: Patient communicates acknowledgment Overweight/Obesity Patient Overweight/Obesity Risk Factors Are:: Obesity - > or = 30 Recommendations Include:: Weight loss of 5-10%, Reduced calorie diet, Exercise 5-7 times/week Overweight/Obesity:: Patient communicates acknowledgment Hypertension Recommendations Include:: Maintain BP <130/85, BP <130/80 if diabetic, DASH dietary guidelines, Decrease/maintain normal body weight, Moderation of ETOH Hypertension:: Patient communicates acknowledgment Heart Disease Patient Heart Disease Risk Factors Are:: Previous cardiac event Diabetes Patient Diabetes Risk Factors Are:: Elevated blood sugars, Post-op hyperglycemia Recommendations Include:: Maintain fasting blood sugars 70-110 md/dL, Maintain HgbA1c of 6% or less, Monitor blood sugar as prescribed, Diabetic dietary guidelines, Decrease/maintain body weight Diabetes:: Patient communicates acknowledgment Sedentary Patient Sedentary Risk Factors Are:: Lack of regular exercise Recommendations Include:: Aerobic exercise 5-7 times/week for 20-30 minutes continuously, Benefits of regular exercise, Discussed home walking program, Monitored Outpatient Cardiac Rehab Sedentary Response Code:: Patient communicates acknowledgment Stress Recommendations Include:: Identification of stressors, and assessment of coping skills, Stress management techniques Stress Response Code:: Patient communicates acknowledgment
[2020-09-29] MEDS: Sertraline 100 MG Tablet PO (14:30)
[2020-09-29] MEDS: Loratadine 10 MG Tablet PO (14:30)
[2020-09-29] MEDS: Acyclovir 200 MG Capsule 400 MG PO ×2 (14:30→21:59)
[2020-09-29] MEDS: Metoprolol Tartrate 50 MG Tablet PO (14:30)
[2020-09-29] MEDS: Ranolazine 500 MG Tablet 1000 MG PO ×2 (14:30→21:58)
[2020-09-29] MEDS: Magnesium Chloride 64 MG Delay Rel.Tablet 128 MG PO ×2 (14:31→21:58)
[2020-09-29] MEDS: Gabapentin 300 MG Capsule PO (14:31)
[2020-09-29] MEDS: Isosorbide Mononitrate 60 MG Tablet PO (14:31)
[2020-09-29 14:45] LABS: Bedside Glucose 367 mg/dL (70-110)
[2020-09-29] MEDS: Insulin Lispro 100 UNIT/ML INSULN.PEN 26 UNIT SC ×2 (14:49→17:43)
[2020-09-29] MEDS: Insulin Lispro 100 UNIT/ML INSULN.PEN SC ×2 (15:10→17:42)
[2020-09-29 16:55] LABS: Bedside Glucose 248 mg/dL (70-110)
[2020-09-29] MEDS: Atorvastatin Calcium 80 MG Tablet PO (21:58)
[2020-09-29] MEDS: Gabapentin 400 MG Capsule 1200 MG PO (21:58)
[2020-09-29 22:05] LABS: Bedside Glucose 211 mg/dL (70-110)
[2020-09-30] VITALS (8 sets, daily range): BP systolic 106–127; BP diastolic 59–75; PULSE 80–87; RESP 16–18; TEMP 36.6; O2SAT 98
[2020-09-30] MEDS: Acyclovir 200 MG Capsule 400 MG PO ×2 (05:49→13:37)
--- NOTE | 2020-09-30 06:50 | PCM.PN.CARD ---
Subjective Subjective Patient seen and evaluated. Appears to be doing well. Objective Data Vital Signs: Vital Signs Temp Pulse Resp BP Pulse Ox 97.8 F 80 16 106/59 L 98 09/30/20 03:20 09/30/20 03:20 09/30/20 03:20 09/30/20 03:20 09/30/20 03:20 Oxygen Delivery Method Room Air Weight: 216 lb Body Mass Index (BMI) 33.8 Intake & Output: Intake and Output for Last 24 Hours 09/28/20 09/29/20 09/30/20 23:59 23:59 23:59 Intake Total 1374.67 / 1574.67 245 / 245 Output Total 0 / 0 Balance 1374.67 / 1574.67 245 / 245 Lab / Micro Data Labs: Laboratory Results - last 24 hr 09/29/20 09/29/20 09/29/20 11:25 14:19 16:47 POC Glucose 341 H 367 H 248 H 09/29/20 21:56 POC Glucose 211 H Cardiology Labs/Tests Rhythm: EKG: ECHO: Stress Test: Cardiac Cath: PCI: CT Surgery: Holter monitor: EPS: PPM: CXR: Chest CT Scan: Physical Exam Const oriented x3 and healthy appearing Orientation / Consciousness: awake HEENT normocephalic Eyes PERRL and conjunctivae normal Neck supple, no JVD and no carotid bruits Chest inspection of chest normal Resp normal respiratory effort and clear to auscultation bilaterally Cardio Palpation: normal PMI Rate: regular rate Rhythm: regular rhythm Heart Sounds: S1 normal and S2 normal Peripheral Pulses: pulses 2+ throughout GI normal to inspection, nondistended, normoactive bowel sounds Extremity normal to inspection and no clubbing, cyanosis or edema Psych mental status grossly normal Assessment & Plan Assessment/Plan (1) History of coronary artery stent placement: PLAN: Patient is status post heart catheterization angioplasty and stenting of the right coronary artery. Patient appears to be doing well. Will discharge for outpatient follow-up.
--- NOTE | 2020-09-30 06:52 | PCM.DC ---
Discharge Instructions Follow Up Care Test Results: Test results from this visit will be discussed in further detail at your follow-up appointment, if applicable. Discharge Plan Admission Primary Reason for Your Visit: Chest pain Attending Provider: Yong Ma Primary Care Provider: Jhony Smith Instructions Patient Instructions: ED Chest Pain, Noncardiac Discharge Orders/Prescriptions Prescriptions: Continued aspirin 81 MG tablet,chewable 81 mg PO DAILY RF: 0 sertraline 100 MG tablet 100 mg PO DAILY RF: 0 insulin lispro 100 insulin pen 26 units SQ TIDCM RF: 0 insulin lispro 100 insulin pen See Protocol unit SQ TIDCM RF: 0 gabapentin 300 MG capsule 300 mg PO DAILY RF: 0 ondansetron 4 MG tablet 4 mg PO Q8H PRN PRN (Reason: Nausea) Qty: 10 RF: 0 gabapentin 300 MG capsule 1,200 mg PO QHS RF: 0 acyclovir 400 MG tablet 400 mg PO TID RF: 0 insulin degludec 100 UNIT/ML solution 35 unit SQ BID RF: 0 isosorbide mononitrate 60 mg Tablet Extended Release 24 Hr 60 mg PO DAILY RF: 0 metoprolol tartrate 25 mg tablet 50 mg PO DAILY RF: 0 loratadine [Claritin] 10 mg Tablet 10 mg PO DAILY RF: 0 clopidogrel 75 mg tablet 75 mg PO QHS RF: 0 magnesium oxide 400 mg (241.3 mg magnesium) tablet 400 mg PO BID Qty: 60 RF: 11 nitroglycerin 0.4 mg tablet, sublingual 0.4 mg SUBLINGUAL Q5M PRN (Reason: Chest Pain) Qty: 1 RF: 0 atorvastatin 80 mg tablet 80 mg PO QHS Qty: 90 RF: 3 ranolazine 1,000 mg tablet extended release 12 hr 1,000 mg PO BID Qty: 180 RF: 3 Referrals / Follow Up: Jhony Smith MD [Primary Care Provider] - Disposition Disposition (needs filled in before D/C Order can be placed): Home, self care
[2020-09-30 07:12] LABS: Hemoglobin 10.6 g/dL (12.0-15.0); Mean Corp Hgb Conc 32.1 g/dL (32-36); Mean Corpuscular Hgb 27.1 pg (27.0-32.0); Mean Corpuscular Volume 84.4 fL (81-99); Mean Platelet Vol. 10.2 fl (6.2-12.0); Platelet Count 260 K/mm3 (150-450); RBC Distribution Width CV 14.9 % (11.6-14.6); RBC Distribution Width SD 45.8 fl (35.1-43.9); Red Blood Count 3.91 M/mm3 (4.2-5.4); White Blood Count 6.2 K/mm3 (4.4-11.0)
[2020-09-30 07:50] LABS: ALB/GLOB Ratio 1.1 RATIO (0.9-2.4); AST(SGOT) 14 U/L (15-37); Alanine Aminotransfer ALT/SGPT 26 U/L (13-56); Albumin, Serum 3.3 g/dL (3.2-5.0); Alkaline Phosphatase 63 U/L (45-117); Anion Gap 7 (5-15); BUN 14 mg/dL (7-18); BUN/Creat Ratio 22.7 RATIO (10-20); Calcium,Total 8.5 mg/dL (8.5-10.1); Chloride 104 mmol/L (98-107); Creatinine, Serum 0.62 mg/dL (0.55-1.02); EST Glomerular Filtration Rate 115 mL/min (>60); Est Glom Filt Rate - Afr Amer 139 mL/min (>60); Estimated Creatinine Clearance 118.47 ml/min; Globulin 2.9 g/dL (2.2-4.2); Glucose 221 mg/dL (74-106); Potassium 3.6 mmol/L (3.5-5.1); Protein, Total 6.2 g/dL (6.4-8.2); Sodium Level 137 mmol/L (136-145)
[2020-09-30] MEDS: Insulin Lispro 100 UNIT/ML INSULN.PEN SC ×2 (09:00→13:35)
[2020-09-30] MEDS: Insulin Lispro 100 UNIT/ML INSULN.PEN 26 UNIT SC ×2 (09:01→13:34)
[2020-09-30] MEDS: Aspirin 81 MG TAB.CHEW PO (09:09)
[2020-09-30] MEDS: Metoprolol Tartrate 50 MG Tablet PO (09:10)
[2020-09-30] MEDS: Gabapentin 300 MG Capsule PO (09:10)
[2020-09-30] MEDS: Isosorbide Mononitrate 60 MG Tablet PO (09:10)
[2020-09-30] MEDS: Ranolazine 500 MG Tablet 1000 MG PO (09:10)
[2020-09-30] MEDS: Loratadine 10 MG Tablet PO (09:10)
[2020-09-30] MEDS: Magnesium Chloride 64 MG Delay Rel.Tablet 128 MG PO (09:10)
--- NOTE | 2020-09-30 09:10 | PHA.DC.MR ---
Pharmacy Service has performed discharge medication reconciliation for this patient. No new medications issued at time of discharge review. Medications reviewed are from previously reported home medications. Home Medications aspirin 81 mg PO DAILY 03/04/15 sertraline 100 mg PO DAILY 11/25/15 insulin lispro 26 units SQ TIDCM 05/02/18 insulin lispro See Protocol SQ TIDCM 05/02/18 gabapentin 300 mg PO DAILY 06/16/18 ondansetron 4 mg PO Q8H PRN PRN #10 tab 06/16/18 gabapentin 1,200 mg PO QHS 12/04/18 acyclovir 400 mg PO TID 09/13/19 insulin degludec 35 unit SQ BID 09/13/19 magnesium oxide 400 mg (241.3 mg magnesium) tablet 400 mg PO BID #60 tab 09/29/19 nitroglycerin 0.4 mg sublingual tablet 0.4 mg SUBLINGUAL Q5M PRN #1 bottle 05/04/20 atorvastatin 80 mg tablet 80 mg PO QHS #90 tab 08/02/20 clopidogrel 75 mg PO QHS 09/24/20 loratadine [Claritin] 10 mg PO DAILY 09/24/20 isosorbide mononitrate 60 mg PO DAILY 09/28/20 metoprolol tartrate 50 mg PO DAILY 09/28/20 ranolazine 1,000 mg tablet,extended release,12 hr 1,000 mg PO BID #180 tab 09/28/20 The patient's discharge medication list was reviewed for discrepancies and discrepancies were resolved.
[2020-09-30] MEDS: Sertraline 100 MG Tablet PO (09:11)
--- NOTE | 2020-09-30 10:00 | EKG12_ITS ---
Test Reason : AM EKG Blood Pressure : / mmHG Vent. Rate : 079 BPM Atrial Rate : 079 BPM P-R Int : 174 ms QRS Dur : 102 ms QT Int : 436 ms P-R-T Axes : 053 -10 057 degrees QTc Int : 499 ms Normal sinus rhythm Anterior infarct , age undetermined Abnormal ECG When compared with ECG of 29-SEP-2020 09:31, MANUAL COMPARISON REQUIRED, DATA IS UNCONFIRMED Confirmed by HERB MITCHELL, PATI ([id number]), social media editor MITA HAN ([id number]) on 10/04/2020 10:39:33 AM Referred By: Yong Ma Confirmed By:CARLENE ESTEVEZ MD
[2020-09-30 10:15] LABS: Bedside Glucose 238 mg/dL (70-110)
[2020-09-30 12:06] LABS: Bedside Glucose 265 mg/dL (70-110)
== END 2020-09-30 06:54 | disposition home or self-care (01) ==
LOC: CLSP 06:27 → PCU 14:47
PROVIDERS: Specialist; PCP Internal Medicine; Referring Provider Internal Medicine Cardiovascular Disease; Visit Provider Internal Medicine Cardiovascular Disease
DX: I25.10 Atherosclerotic heart disease of native coronary artery without angina pectoris (principal); I25.5 Ischemic cardiomyopathy; E78.5 Hyperlipidemia, unspecified; E10.9 Type 1 diabetes mellitus without complications; I25.2 Old myocardial infarction; Z95.5 Presence of coronary angioplasty implant and graft; I11.0 Hypertensive heart disease with heart failure; I50.22 Chronic systolic (congestive) heart failure
CPT/HCPCS: 36415; 80053; 81025; 82962; 85027; 92928; 93005; 93458; 99152; 99153; J7030; J7040; Q9967; A4216; C1725; C1769; C1874; C1887; C1894; C9600

== ENCOUNTER → 2020-10-08 10:22 | Outpatient (CLI) | payer MEDICAID, SELFPAY ==
[2020-10-08 09:36] VITALS: BMI 33.3
[2020-10-08 11:16] LABS: Hematocrit 36.9 % (37-47); Hemoglobin 11.8 g/dL (12.0-15.0); Mean Corpuscular Hgb 27.2 pg (27.0-32.0); Mean Platelet Vol. 10.2 fl (6.2-12.0); Platelet Count 286 K/mm3 (150-450); RBC Distribution Width CV 14.9 % (11.6-14.6); RBC Distribution Width SD 46.3 fl (35.1-43.9); Red Blood Count 4.34 M/mm3 (4.2-5.4); White Blood Count 6.1 K/mm3 (4.4-11.0)
[2020-10-08 11:44] LABS: Anion Gap 5 (5-15); BUN 11 mg/dL (7-18); Calcium,Total 8.9 mg/dL (8.5-10.1); Chloride 106 mmol/L (98-107); Creatinine, Serum 0.69 mg/dL (0.55-1.02); EST Glomerular Filtration Rate 101 mL/min (>60); Est Glom Filt Rate - Afr Amer 122 mL/min (>60); Glucose 321 mg/dL (74-106); Sodium Level 138 mmol/L (136-145)
[2020-10-08 11:46] LABS: BNP,B-Type NATRIURETIC PEPTIDE 20.6 pg/mL (0-100)
== END ==
PROVIDERS: PCP Internal Medicine; Referring Provider Physician Assistant Medical; Visit Provider Physician Assistant Medical
DX: I25.10 Atherosclerotic heart disease of native coronary artery without angina pectoris (principal); I25.5 Ischemic cardiomyopathy; E78.5 Hyperlipidemia, unspecified; I50.22 Chronic systolic (congestive) heart failure; I11.0 Hypertensive heart disease with heart failure
CPT/HCPCS: 36415; 80048; 83880; 85027

== ENCOUNTER 2021-05-24 09:51 | Emergency (ER) | payer MEDICAID, SELFPAY ==
[2021-05-24 09:51] VITALS: PULSE 87; RESP 16; O2SAT 97
[2021-05-24 09:53] VITALS: BP 132/84; PULSE 95; RESP 22; TEMP 36.1; O2SAT 100; BMI 32.5
--- NOTE | 2021-05-24 10:08 | EKG12_ITS ---
Test Reason : Blood Pressure : / mmHG Vent. Rate : 092 BPM Atrial Rate : 092 BPM P-R Int : 158 ms QRS Dur : 088 ms QT Int : 398 ms P-R-T Axes : 048 -09 046 degrees QTc Int : 492 ms Normal sinus rhythm Anterolateral infarct , age undetermined Low voltage QRS (Limb Leads) Abnormal ECG Confirmed by CECILIA MITCHELL, YUNIOR ([id number]), makeup editor MITA HAN ([id number]) on 05/25/2021 9:23:28 AM Referred By: RAS Confirmed By:YUNIOR BROOKS MD
--- NOTE | 2021-05-24 10:10 | RAD_ITS ---
STUDY: X-RAY - RIGHT TIBIA AND FIBULA REASON FOR EXAM: Female, 41 years old. Postoperative pain. TECHNIQUE: 2 view(s) of the tibia and fibula were obtained. COMPARISON: None. FINDINGS: Normal visualized tibia. Normal visualized fibula. The soft tissue structures are unremarkable. RAD/Tibia & Fibula 2 Views IMPRESSION: Normal x-ray examination of the tibia and fibula. Electronically Signed: Arya Marino MD at 11:31 EST ,
--- NOTE | 2021-05-24 10:10 | RAD_ITS ---
STUDY: X-RAY - RIGHT FOOT CLINICAL: Female, 41 years old. Postoperative pain. TECHNIQUE: 3 view(s) of the foot. COMPARISON: 01/09/2019. FINDINGS: Normal talus, calcaneus, and tarsal bones. Normal visualized subtalar, talonavicular, calcaneocuboid, tarsal and tarsometatarsal articulations. Resection of the proximal aspect of the proximal phalanx of the first toe since the prior study. Moderate loss of articular cartilage at the first MTP joint. Focal soft tissue swelling at the first MTP joint. RAD/Foot min 3 Views IMPRESSION: Postsurgical changes of the proximal phalanx of the first digit with substantial loss of articular cartilage at that site. Focal soft tissue swelling. No acute finding. Electronically Signed: Arya Marino MD at 11:31 EST ,
--- NOTE | 2021-05-24 10:11 | EDS_ITS ---
HPI History of Present Illness Chief Complaint: Lower Extremity Injury Informant: patient Narrative Narrative: Patient complains of concern for infection in the right lower extremity. This patient has had diabetes for about 21 years. She had infected great toe and was actually had sepsis back in February or March range. She had a PICC line in for IV antibiotics. Surgery was done on tendon lengthening in her calf and then some bone scraping in her right great toe on 13 April at [facility] by Dr. Kwong. She states p after surgery she was on antibiotics for a short time. She has been back on antibiotics now twice. Each time she goes on Levaquin she gets a bit better but then the symptoms come back. She has been off of antibiotics for almost 2 weeks. She has had some redness in the back of her calf for about 1 week and now her great toe really started getting red and swollen over the last couple days. She states now her sugars are going up she has achiness and subjective fevers. She has been vaccinated and had a negative Covid on Sunday. [facility] Medical History Anxiety and depression Atherosclerosis of coronary artery of [place] heart without angina pectoris Chronic pain Chronic systolic (congestive) heart failure Depression Diabetes mellitus type 1 Essential (primary) hypertension Hyperlipidemia Ischemic cardiomyopathy HERNANDEZ (nonalcoholic steatohepatitis) Non-smoker Old anterior wall myocardial infarction Sleep apnea Syncope Type 2 diabetes mellitus Home Medications aspirin 81 mg PO DAILY 03/04/15 [History Last Taken 09/29/20] sertraline 100 mg PO DAILY 11/25/15 [History Last Taken 05/03/20] insulin lispro 26 units SQ TIDCM 05/02/18 [History Last Taken 05/04/20] insulin lispro See Protocol SQ TIDCM 05/02/18 [History Last Taken 05/04/20] gabapentin 300 mg PO DAILY 06/16/18 [History Last Taken 05/04/20] ondansetron 4 mg PO Q8H PRN PRN #10 tab 06/16/18 [Rx Last Taken 05/03/20] gabapentin 1,200 mg PO QHS 12/04/18 [History Last Taken 05/03/20] acyclovir 400 mg PO TID 09/13/19 [History Last Taken 09/24/20] insulin degludec 35 unit SQ BID 09/13/19 [History Last Taken 05/03/20] magnesium oxide 400 mg (241.3 mg magnesium) tablet 400 mg PO BID #60 tab 09/29/19 [Rx Last Taken 05/04/20] nitroglycerin 0.4 mg sublingual tablet 0.4 mg SUBLINGUAL Q5M PRN #1 bottle 05/04/20 [Rx Last Taken 05/04/20] losartan 25 mg tablet 25 mg PO DAILY #90 tab 10/08/20 [Rx Last Taken Unknown] furosemide 40 mg tablet 40 mg PO DAILY PRN #30 tab 11/02/20 [Rx Last Taken Unknown] loratadine 10 mg tablet 10 mg PO DAILY PRN 01/18/21 [History Last Taken Unknown] atorvastatin 80 mg tablet 80 mg PO QHS #90 tab 01/24/21 [Rx Last Taken Unknown] clopidogrel 75 mg tablet 75 mg PO QHS #90 tab 01/24/21 [Rx Last Taken Unknown] ranolazine 1,000 mg tablet,extended release,12 hr 1,000 mg PO BID #180 tab 04/12/21 [Rx Last Taken Unknown] levofloxacin 750 mg PO DAILY #10 tab 05/24/21 [Rx Last Taken Unknown] Allergy/AdvReac Type Severity Reaction Status Date / Time perflutren [From InboundWriter] Allergy Severe Anaphylaxis Verified 05/24/21 09:53 Iodinated Contrast Media Allergy Hives Verified 05/24/21 09:53 [Iodinated Contrast Media - IV Dye] Penicillins Allergy Rash Verified 05/24/21 09:53 Sulfa (Sulfonamide Allergy Hives Verified 05/24/21 09:53 Antibiotics) Beta-Blockers AdvReac Low blood Verified 05/24/21 09:53 (Beta-Adrenergic Bloc pressure metformin AdvReac Upset Verified 05/24/21 09:53 Stomach nitroglycerin AdvReac drops HR Verified 05/24/21 09:53 ticagrelor [From Brilinta] AdvReac Bleeding Verified 05/24/21 09:53 Family History Father Cancer lung cancer Brother Diabetes Sister Diabetes Heart disease Hypertension High cholesterol Mother Heart disease High cholesterol Hypertension CVA (cerebral vascular accident) Grandmother Heart disease High cholesterol Hypertension Grandfather Heart disease High cholesterol Hypertension CVA (cerebral vascular accident) Surgical History History of coronary artery stent placement (09/29/20) History of left heart catheterization (05/05/20) History of lumbar fusion History of tubal ligation Social History Smoking Status: Never smoker alcohol intake: never substance use type: does not use ROS ROS ED Constitutional Constitutional ED: Reports chills, fever(s) and subjective Eyes Eyes: Denies blurry vision ENT ENT ED: Denies rhinorrhea or sore throat Cardiovascular Cardiovascular: Denies chest pain Respiratory/Chest Respiratory/Chest: Denies cough, dyspnea or sputum Gastrointestinal Gastrointestinal: Reports nausea and vomiting; Denies constipation or diarrhea Genitourinary Genitourinary ED: Denies dysuria Musculoskeletal Musculoskeletal: Reports myalgias and other Details: See history of present illness Integumentary Reports other Details: Wounds on right lower extremity. See history of present illness. Neurologic Neurologic: Denies headache(s) Psychiatric Psychiatric: Denies depression Endocrine Endocrinology: Reports polyuria; Denies polydipsia Allergic/Immunologic Allergic/Immunologic ED: Denies mouth swelling or urticaria EXAM Physical Exam Const Vital Signs: 05/24/21 09:51 05/24/21 09:53 05/24/21 12:00 Temperature 96.9 F L 98.4 F Temperature Source Temporal Oral Pulse Rate 87 95 87 Respiratory Rate 16 22 H 20 H Blood Pressure 132/84 H 105/78 Blood Pressure Mean 100 87 Pulse Ox 97 100 96 Oxygen Delivery Method Room Air Room Air Room Air 05/24/21 14:00 Temperature Temperature Source Pulse Rate 87 Respiratory Rate 22 H Blood Pressure 112/77 Blood Pressure Mean 88 Pulse Ox 95 Oxygen Delivery Method Room Air Positive well nourished and well developed General Appearance ED: well developed HEENT Reports moist mucous membranes Negative for trauma Eyes PERRL General Eye ED: Negative for pale conjunctiva or scleral icterus Neck no JVD Resp normal respiratory effort and clear to auscultation bilaterally Auscultation: Negative for rales, rhonchi or wheezes Cardio regular rate and regular rhythm GI normal to inspection, nondistended, normoactive bowel sounds and non-tender Palpation: soft Back/Spine no CVA tenderness Extremity Extremity Narrative: There is a healing but slightly red incision on the posterior left side of her right calf. There is also an erythematous and somewhat tender and slightly indurated area more on the right side near this incision but separate from it. The great toe has an intact incision but is also erythematous, warm swollen and tender. I do not see distended veins. I do not feel local cords. Neuro oriented x3 Sensorium / Orientation: alert Psych mental status grossly normal Skin Skin Narrative: See above. MDM MDM MDM Narrative Medical decision making narrative: I talk with the principal technical architect. Her scans were negative for DVT. There was a little superficial vein in the area of erythema in her mid right calf. But no DVT. There is also no large visible abscess or pocket of fluid noted. X-rays show postsurgical changes but no acute findings. Her white count was normal. Hemoglobin normal. Electrolytes showed no marked abnormalities. Sodium was low but some of this is factitious due to her high glucose at 479. Lactate is negative. I did give the patient 14 units. We did not want to drop her too much. She will likely need more. She looked up her levels and think she would take probably at least 25 for this. With the ultrasound, x-ray and blood work showed no marked abnormalities other than high sugar, I think the patient still can be managed as an outpatient. She has not been on antibiotics for 2 weeks so she has not failure of outpatient therapy acutely. Really the only antibiotic that she can tolerate is Levaquin. We did give her a dose of vancomycin here. I recommend she contact her surgeon for recheck as soon as possible. Repeat GGT was down to 279. Patient is very comfortable managing this as an outpatient. Lab Data Attestation: I reviewed the patient's lab results. Labs: Laboratory Results - last 24 hr 05/24/21 05/24/21 05/24/21 10:50 10:50 10:50 WBC 7.6 RBC 4.61 Hgb 12.3 Hct 38.7 MCV 83.9 MCH 26.7 L MCHC 31.8 L RDW Std Deviation 42.9 RDW Coeff of Mar[place] 14.0 Plt Count 272 MPV 10.2 Immature Gran % (Auto) 0.400 Neut % (Auto) 74.0 H Lymph % (Auto) 17.7 L [place] % (Auto) 5.4 Eos % (Auto) 2.0 Baso % (Auto) 0.5 Absolute Neuts (auto) 5.6 Absolute Lymphs (auto) 1.34 Nucleated RBC % 0 Sodium 131 L Potassium 4.3 Chloride 99 Carbon Dioxide 25.0 Anion Gap 7 BUN 9 Creatinine 0.82 Estim Creat Clear Calc 88.69 Est GFR (MDRD) Af Amer 99 Est GFR (MDRD) Non-Af 81 BUN/Creatinine Ratio 10.9 Glucose 479 H* Lactic Acid 1.5 Calcium 9.1 POC Glucose 05/24/21 14:04 WBC RBC Hgb Hct MCV MCH MCHC RDW Std Deviation RDW Coeff of [place] Plt Count MPV Immature Gran % (Auto) Neut % (Auto) Lymph % (Auto) Jefferson % (Auto) Eos % (Auto) Baso % (Auto) Absolute Neuts (auto) Absolute Lymphs (auto) Nucleated RBC % Sodium Potassium Chloride Carbon Dioxide Anion Gap BUN Creatinine Estim Creat Clear Calc Est GFR (MDRD) Af Amer Est GFR (MDRD) Non-Af BUN/Creatinine Ratio Glucose Lactic Acid Calcium POC Glucose 260 H Radiography Diagnostic Testing: Clinical Impression(s) from Imaging Studies Foot X-Ray 05/24/21 10:10 IMPRESSION: Postsurgical changes of the proximal phalanx of the first digit with substantial loss of articular cartilage at that site. Focal soft tissue swelling. No acute finding. Electronically Signed: Arya Marino MD at 11:31 EST Reading Location ID and State: [address] [place] [address] , Service support , Tibia/Fibula X-Ray 05/24/21 10:10 IMPRESSION: Normal x-ray examination of the tibia and fibula. Electronically Signed: Arya Marino MD at 11:31 EST , Venous Doppler Study 05/24/21 10:11 Interpretation Summary There is no evidence of right lower extremity deep vein thrombosis. Right great saphenous vein appears patent and compressible segmentally. Superficial thrombophlebitis right lateral calf varicose vein Abbreviated COVID-19 protocol utilized Ordering Physician: Rui Coburn Performed By: Peter Seth RVT Initial EKG: Comments: EKG done for nausea in a diabetic with history of heart disease. EKG read by me shows a normal sinus rhythm with a rate of 92. No ventricular ectopy. Poor anterior R wave but no sign of acute ST elevation or depression. WI interval, QRS duration are normal. QTc is slightly long at 492 ms. The EKG overall is similar to 30 September 2020 Discharge Plan Triage Chief Complaint: Lower Extremity Injury ED Provider: Rui Coburn Dx/Rx/DC Orders Clinical Impression: Wound infection after surgery, Hyperglycemia Instructions: ED Wound Infection after surgery Prescriptions: New levofloxacin 750 mg tablet 750 mg PO DAILY Qty: 10 RF: 0 No Action losartan 25 mg tablet 25 mg PO DAILY Qty: 90 RF: 3 aspirin 81 MG tablet,chewable 81 mg PO DAILY RF: 0 sertraline 100 MG tablet 100 mg PO DAILY RF: 0 insulin lispro 100 insulin pen 26 units SQ TIDCM RF: 0 insulin lispro 100 insulin pen See Protocol unit SQ TIDCM RF: 0 gabapentin 300 MG capsule 300 mg PO DAILY RF: 0 ondansetron 4 MG tablet 4 mg PO Q8H PRN PRN (Reason: Nausea) Qty: 10 RF: 0 gabapentin 300 MG capsule 1,200 mg PO QHS RF: 0 acyclovir 400 MG tablet 400 mg PO TID RF: 0 insulin degludec 100 UNIT/ML solution 35 unit SQ BID RF: 0 loratadine [Claritin] 10 mg tablet 10 mg PO DAILY PRNRF: 0 magnesium oxide 400 mg (241.3 mg magnesium) tablet 400 mg PO BID Qty: 60 RF: 11 nitroglycerin 0.4 mg tablet, sublingual 0.4 mg SUBLINGUAL Q5M PRN (Reason: Chest Pain) Qty: 1 RF: 0 furosemide [Lasix] 40 mg tablet 40 mg PO DAILY PRN (Reason: weight gain) Qty: 30 RF: 0 atorvastatin 80 mg tablet 80 mg PO QHS Qty: 90 RF: 3 clopidogrel 75 mg tablet 75 mg PO QHS Qty: 90 RF: 3 ranolazine 1,000 mg tablet extended release 12 hr 1,000 mg PO BID Qty: 180 RF: 3 Primary Care Provider: Jhony Smith Referrals: Martín Kwong MD [NON-STAFF] - As soon as possible Jhony Smith MD [Primary Care Provider] - Activity Restrictions/Additional Instructions: Follow-up with your surgeon, Dr. Kwong, as soon as possible. Disposition Disposition: Home, Self Care
--- NOTE | 2021-05-24 10:11 | VDLE_ITS ---
Reason For Study: pain RIGHT GSV is normal. CFV is compressible, spontaneous, phasic, competent and demonstrates normal augmentation. FV is compressible, spontaneous, phasic, competent and demonstrates normal augmentation. POP V is compressible, spontaneous, phasic, competent and demonstrates normal augmentation. T/P Trunk is compressible. PTV is compressible. RT PerV is compressible. Varicose vein on the lateral calf is dilated and noncompressible. Procedure This is a venous duplex using B-mode, color flow and spectral Doppler. Exam performed portable in ED. The exam was abbreviated due to the COVID 19 protocol. The exam was diagnostic. A preliminary report was called and/or faxed to Oriana IRENE and Dr. Coburn. VL/Venous Duplex US, Unilateral Interpretation Summary There is no evidence of right lower extremity deep vein thrombosis. Right great saphenous vein appears patent and compressible segmentally. Superficial thrombophlebitis right lateral calf varicose vein Abbreviated COVID-19 protocol utilized Ordering Physician: Rui Coburn Performed By: Peter Seth RVT
[2021-05-24] MEDS: Morphine 4 MG/ML Syringe IV ×2 (10:45→12:40)
[2021-05-24] MEDS: Ondansetron 4 MG/2 ML Vial IV (10:45)
[2021-05-24 11:11] LABS: Absolute Lymphocyte Count 1.34 X10^3/uL (0.83-4.51); Absolute Neutrophil Count 5.6 X10^3/uL (2.0-7.7); Basophil# 0.04 X10^3/uL; Basophil% 0.5 % (0-1); Eosinophil# 0.15 X10^3/uL; Hematocrit 38.7 % (37-47); Hemoglobin 12.3 g/dL (12.0-15.0); Lymphocyte # 1.34 X10^3/ul (0.83-4.51); Lymphocyte % 17.7 % (19-41); Mean Corp Hgb Conc 31.8 g/dL (32-36); Mean Corpuscular Hgb 26.7 pg (27.0-32.0); Mean Corpuscular Volume 83.9 fL (81-99); Mean Platelet Vol. 10.2 fl (6.2-12.0); Monocyte# 0.41 X10^3/uL; Monocyte% 5.4 % (0-10); NRBC Flagged by Analyzer 0 % (0-5); Neutrophil # 5.61 X10^3/uL (2.7-7.7); Platelet Count 272 K/mm3 (150-450); RBC Distribution Width SD 42.9 fl (35.1-43.9); Red Blood Count 4.61 M/mm3 (4.2-5.4); White Blood Count 7.6 K/mm3 (4.4-11.0)
--- NOTE | 2021-05-24 11:17 | NURSING ---
doppler done perr order and negative per anand mail carrier technician. superficial vericose vein post lowerr calf
[2021-05-24 11:41] LABS: Lactic Acid 1.5 mmol/L (0.4-1.9)
[2021-05-24 11:43] LABS: Anion Gap 7 (5-15); BUN 9 mg/dL (7-18); BUN/Creat Ratio 10.9 RATIO (10-20); Calcium,Total 9.1 mg/dL (8.5-10.1); Chloride 99 mmol/L (98-107); Creatinine, Serum 0.82 mg/dL (0.55-1.02); EST Glomerular Filtration Rate 81 mL/min (>60); Est Glom Filt Rate - Afr Amer 99 mL/min (>60); Estimated Creatinine Clearance 88.69 ml/min; Glucose 479 mg/dL (74-106); Potassium 4.3 mmol/L (3.5-5.1); Sodium Level 131 mmol/L (136-145)
[2021-05-24] MEDS: Insulin Lispro 100 UNIT/ML INSULN.PEN 14 UNIT SC (11:58)
[2021-05-24 12:00] VITALS: BP 105/78; PULSE 87; RESP 20; TEMP 36.9; O2SAT 96
[2021-05-24 14:00] VITALS: BP 112/77; PULSE 87; RESP 22; O2SAT 95
[2021-05-24 14:10] LABS: Bedside Glucose 260 mg/dL (70-110)
[2021-05-24 18:00] VITALS: BP 118/88; PULSE 84; RESP 16; O2SAT 94
== END 2021-05-24 19:08 | disposition home or self-care (01) ==
PROVIDERS: Emergency Provider Emergency Medicine; PCP Internal Medicine; Visit Provider Emergency Medicine
DX: T81.49XA Infection following a procedure, other surgical site, initial encounter (principal); I11.0 Hypertensive heart disease with heart failure; I50.22 Chronic systolic (congestive) heart failure; E10.65 Type 1 diabetes mellitus with hyperglycemia; Z79.4 Long term (current) use of insulin; I25.5 Ischemic cardiomyopathy; I25.10 Atherosclerotic heart disease of native coronary artery without angina pectoris; E78.5 Hyperlipidemia, unspecified; F41.9 Anxiety disorder, unspecified; F32.A Depression, unspecified; I25.2 Old myocardial infarction; K75.81 Nonalcoholic steatohepatitis (NASH); Z79.899 Other long term (current) drug therapy; Z79.82 Long term (current) use of aspirin; Z95.5 Presence of coronary angioplasty implant and graft
CPT/HCPCS: 73590; 73630; 80048; 82962; 83605; 85025; 87040; 87070; 87075; 87205; 87640; 93005; 93971; 96365; 96366; 96375; 96376; 99285; J7040; J7050; A4216; J2405

== ENCOUNTER 2021-05-24 15:25 | Outpatient (CLI) | payer MEDICAID, SELFPAY ==
[2021-05-24 17:58] LABS: M R Staph aureus DNA By PCR Negative (Negative); Probe Check PASS; Specimen Processing Control PASS; Staph aureus DNA By PCR NEGATIVE (Negative)
== END 2021-05-24 23:59 | disposition short-term general hospital (02) ==
LOC: LABSPEC 15:33
PROVIDERS: PCP Internal Medicine; Referring Provider Podiatrist; Visit Provider Podiatrist
DX: Z00.00 Encounter for general adult medical examination without abnormal findings (principal)
CPT/HCPCS: 87070; 87205; 87640; 87075

== ENCOUNTER 2021-06-09 12:34 | Emergency (ER) | payer MEDICARE, MEDICAID, SELFPAY ==
[2021-06-09 12:35] VITALS: BP 141/84; PULSE 95; RESP 16; TEMP 36.4; O2SAT 100; BMI 32.5
[2021-06-09 12:59] VITALS: BP 141/84; PULSE 95; RESP 16; TEMP 36.4; O2SAT 100
--- NOTE | 2021-06-09 13:05 | EX.ED.DYSGE1 ---
HPI History of Present Illness Chief Complaint: Shortness of Breath Informant: patient Onset/Context/Timing Onset: Days (5) Context: Gradual Onset Timing: Continuous Quality: Wheezing Location: Chest Worsened by: Exertion Relieved by: Nothing Narrative Narrative: Patient presents with cough and shortness of breath that has been getting worse over the past 5 days. Patient states she has a history of frequent bronchitis and pneumonia. Patient states her daughter had COVID-19 last week. Patient states she took a Covid test at home which was -4 days ago. Patient states her breathing is worse with any exertion. Patient states nothing seems to help with her breathing. Patient states she feels wheezing in her chest. Patient also admits to some intermittent pain in her chest. Patient states her temperature last night was up to 100.9. Patient also admits to a sore throat and congestion. [facility] Medical History Anxiety and depression Atherosclerosis of coronary artery of [place] heart without angina pectoris Chronic pain Chronic systolic (congestive) heart failure Depression Diabetes mellitus type 1 Essential (primary) hypertension Hyperlipidemia Ischemic cardiomyopathy HERNANDEZ (nonalcoholic steatohepatitis) Non-smoker Old anterior wall myocardial infarction Sleep apnea Syncope Type 2 diabetes mellitus Home Medications aspirin 81 mg PO DAILY 03/04/15 [History Last Taken 09/29/20] sertraline 100 mg PO DAILY 11/25/15 [History Last Taken 05/03/20] insulin lispro 26 units SQ TIDCM 05/02/18 [History Last Taken 05/04/20] insulin lispro See Protocol SQ TIDCM 05/02/18 [History Last Taken 05/04/20] gabapentin 300 mg PO DAILY 06/16/18 [History Last Taken 05/04/20] ondansetron 4 mg PO Q8H PRN PRN #10 tab 06/16/18 [Rx Last Taken 05/03/20] gabapentin 1,200 mg PO QHS 12/04/18 [History Last Taken 05/03/20] acyclovir 400 mg PO TID 09/13/19 [History Last Taken 09/24/20] insulin degludec 35 unit SQ BID 09/13/19 [History Last Taken 05/03/20] magnesium oxide 400 mg (241.3 mg magnesium) tablet 400 mg PO BID #60 tab 09/29/19 [Rx Last Taken 05/04/20] nitroglycerin 0.4 mg sublingual tablet 0.4 mg SUBLINGUAL Q5M PRN #1 bottle 05/04/20 [Rx Last Taken 05/04/20] losartan 25 mg tablet 25 mg PO DAILY #90 tab 10/08/20 [Rx Last Taken Unknown] furosemide 40 mg tablet 40 mg PO DAILY PRN #30 tab 11/02/20 [Rx Last Taken Unknown] loratadine 10 mg tablet 10 mg PO DAILY PRN 01/18/21 [History Last Taken Unknown] atorvastatin 80 mg tablet 80 mg PO QHS #90 tab 01/24/21 [Rx Last Taken Unknown] clopidogrel 75 mg tablet 75 mg PO QHS #90 tab 01/24/21 [Rx Last Taken Unknown] ranolazine 1,000 mg tablet,extended release,12 hr 1,000 mg PO BID #180 tab 04/12/21 [Rx Last Taken Unknown] levofloxacin 750 mg PO DAILY #10 tab 05/24/21 [Rx Last Taken Unknown] albuterol sulfate [Ventolin HFA] 1 - 2 puff INHALATION Q4H PRN PRN #1 inhaler 06/09/21 [Rx Last Taken Unknown] Allergy/AdvReac Type Severity Reaction Status Date / Time perflutren [From [employer]] Allergy Severe Anaphylaxis Verified 06/09/21 12:37 Iodinated Contrast Media Allergy Hives Verified 06/09/21 12:37 [Iodinated Contrast Media - IV Dye] Penicillins Allergy Rash Verified 06/09/21 12:37 Sulfa (Sulfonamide Allergy Hives Verified 06/09/21 12:37 Antibiotics) Beta-Blockers AdvReac Low blood Verified 06/09/21 12:37 (Beta-Adrenergic Bloc pressure metformin AdvReac Upset Verified 06/09/21 12:37 Stomach nitroglycerin AdvReac drops HR Verified 06/09/21 12:37 ticagrelor [From Brilinta] AdvReac Bleeding Verified 06/09/21 12:37 Family History Father Cancer lung cancer Brother Diabetes Sister Diabetes Heart disease Hypertension High cholesterol Mother Heart disease High cholesterol Hypertension CVA (cerebral vascular accident) Grandmother Heart disease High cholesterol Hypertension Grandfather Heart disease High cholesterol Hypertension CVA (cerebral vascular accident) Surgical History History of coronary artery stent placement (09/29/20) History of left heart catheterization (05/05/20) History of lumbar fusion History of tubal ligation Social History Smoking Status: Never smoker alcohol intake: never substance use type: does not use ROS ROS ED Constitutional Constitutional ED: Reports fever(s); Denies chills Eyes Eyes: Denies blurry vision or change in vision ENT ENT ED: Reports rhinorrhea and sore throat Cardiovascular Cardiovascular: Reports chest pain; Denies palpitations Respiratory/Chest Respiratory/Chest: Reports cough, dyspnea and sputum Gastrointestinal Gastrointestinal: Reports nausea; Denies vomiting Genitourinary Genitourinary ED: Denies dysuria or hematuria Musculoskeletal Musculoskeletal: Reports back pain; Denies neck pain Integumentary Denies abscess or rash Neurologic Neurologic: Reports headache(s); Denies weakness Allergic/Immunologic Allergic/Immunologic ED: Denies mouth swelling or urticaria EXAM Physical Exam Const Vital Signs: 06/09/21 12:35 06/09/21 12:59 06/09/21 13:33 Temperature 97.5 F L 97.5 F L Temperature Source Temporal Temporal Pulse Rate 95 95 90 Respiratory Rate 16 16 20 H Respiratory Pattern Normal Blood Pressure 141/84 H 141/84 H Blood Pressure Mean 103 103 Pulse Ox 100 100 Oxygen Delivery Method Room Air Room Air Positive well nourished and well developed General Appearance ED: well developed HEENT Reports moist mucous membranes Neck supple and no JVD Resp normal respiratory effort Auscultation: rhonchi throughout Cardio regular rate, regular rhythm and no murmurs GI normal to inspection, nondistended, normoactive bowel sounds and non-tender Palpation: soft Extremity normal to inspection General Extremety ED: Negative for edema or tenderness General Extremity: Negative for edema Neuro oriented x3, CN's II-XII intact bilaterally and no sensory deficits noted Sensorium / Orientation: alert Motor Exam: strength 5/5 throughout Psych mental status grossly normal Skin no rashes or lesions noted MDM MDM MDM Narrative Medical decision making narrative: Portable 1 view chest x-ray was obtained. On my interpretation, lung ambriz are clear. There is normal cardiac silhouette. Bony thorax is normal. There is no acute process noted. Radiologist also interpreted the x-ray and agrees. COVID-19 rapid antigen was obtained and was negative. Patient was given a DuoNeb aerosol here. Patient was given a prescription for albuterol inhaler. Patient was instructed to follow-up with her primary care physician in 5 to 7 days. Patient understood and was agreeable with the plan. All questions were answered. Radiography Chest X-Ray - ED: 1 View, Read by ED Physician, Read by Radiologist and Normal Diagnostic Testing: Clinical Impression(s) from Imaging Studies Chest X-Ray 06/09/21 13:55 IMPRESSION: No radiographic evidence of acute cardiopulmonary disease. Electronically Signed: Abisai Phan MD at 14:28 EST , Discharge Plan Triage Chief Complaint: Shortness of Breath ED Provider: Gus Valadez Dx/Rx/DC Orders Clinical Impression: Viral upper respiratory tract infection with cough Instructions: ED URI, Viral, No Abx (Adult) Prescriptions: New albuterol sulfate [Ventolin HFA] 1 INHALER inhaler 1 - 2 puff inhalation Q4H PRN PRN (Reason: Wheezing) Qty: 1 RF: 0 No Action losartan 25 mg tablet 25 mg PO DAILY Qty: 90 RF: 3 aspirin 81 MG tablet,chewable 81 mg PO DAILY RF: 0 sertraline 100 MG tablet 100 mg PO DAILY RF: 0 insulin lispro 100 insulin pen 26 units SQ TIDCM RF: 0 insulin lispro 100 insulin pen See Protocol unit SQ TIDCM RF: 0 gabapentin 300 MG capsule 300 mg PO DAILY RF: 0 ondansetron 4 MG tablet 4 mg PO Q8H PRN PRN (Reason: Nausea) Qty: 10 RF: 0 gabapentin 300 MG capsule 1,200 mg PO QHS RF: 0 acyclovir 400 MG tablet 400 mg PO TID RF: 0 insulin degludec 100 UNIT/ML solution 35 unit SQ BID RF: 0 loratadine [Claritin] 10 mg tablet 10 mg PO DAILY PRNRF: 0 levofloxacin 750 mg tablet 750 mg PO DAILY Qty: 10 RF: 0 magnesium oxide 400 mg (241.3 mg magnesium) tablet 400 mg PO BID Qty: 60 RF: 11 nitroglycerin 0.4 mg tablet, sublingual 0.4 mg SUBLINGUAL Q5M PRN (Reason: Chest Pain) Qty: 1 RF: 0 furosemide [Lasix] 40 mg tablet 40 mg PO DAILY PRN (Reason: weight gain) Qty: 30 RF: 0 atorvastatin 80 mg tablet 80 mg PO QHS Qty: 90 RF: 3 clopidogrel 75 mg tablet 75 mg PO QHS Qty: 90 RF: 3 ranolazine 1,000 mg tablet extended release 12 hr 1,000 mg PO BID Qty: 180 RF: 3 Primary Care Provider: Jhony Smith Referrals: Jhony Smith MD [Primary Care Provider] - 5-7 Days Disposition Disposition: Home, Self Care
[2021-06-09] MEDS: Ipratropium/Albuterol Sulfate 3 ML AMPUL.NEB INHALATION (13:31)
[2021-06-09 13:33] VITALS: PULSE 90; RESP 20
--- NOTE | 2021-06-09 13:55 | RAD_ITS ---
EXAM: XR CHEST, 1 VIEW CLINICAL INDICATION: Cough TECHNIQUE: Frontal view of the chest. This report was created using [employer] report generation technology. COMPARISON: 09/24/2020 FINDINGS: LUNGS AND PLEURAL SPACES: Unremarkable. No consolidation or edema. No pneumothorax. No effusion. HEART: Unremarkable. Cardiac silhouette not enlarged. MEDIASTINUM: Central airways and mediastinal contour are unremarkable. BONES/JOINTS: Unremarkable. SOFT TISSUES: Unremarkable. RAD/Chest 1 View (Portable) IMPRESSION: No radiographic evidence of acute cardiopulmonary disease. Electronically Signed: Abisai Phan MD at 14:28 EST ,
[2021-06-09 14:53] VITALS: PULSE 86; RESP 18; O2SAT 100
== END 2021-06-09 23:59 | disposition home or self-care (01) ==
PROVIDERS: Emergency Provider Emergency Medicine; PCP Internal Medicine; Visit Provider Emergency Medicine
DX: J06.9 Acute upper respiratory infection, unspecified (principal); I11.0 Hypertensive heart disease with heart failure; I50.22 Chronic systolic (congestive) heart failure; E10.9 Type 1 diabetes mellitus without complications; R05.9 Cough, unspecified; E78.5 Hyperlipidemia, unspecified; I25.10 Atherosclerotic heart disease of native coronary artery without angina pectoris; I25.5 Ischemic cardiomyopathy; I25.2 Old myocardial infarction; G47.30 Sleep apnea, unspecified; Z95.5 Presence of coronary angioplasty implant and graft
CPT/HCPCS: 71045; 87426; 94640; 99282

== ENCOUNTER 2021-06-28 12:18 | Outpatient (CLI) | payer MEDICARE, MEDICAID, SELFPAY ==
[2021-06-28 13:03] LABS: Hemoglobin 11.9 g/dL (12.0-15.0); Mean Corp Hgb Conc 33.1 g/dL (32-36); Mean Corpuscular Hgb 27.4 pg (27.0-32.0); Mean Corpuscular Volume 82.8 fL (81-99); Mean Platelet Vol. 9.6 fl (6.2-12.0); Platelet Count 301 K/mm3 (150-450); RBC Distribution Width CV 13.9 % (11.6-14.6); RBC Distribution Width SD 41.7 fl (35.1-43.9); Red Blood Count 4.35 M/mm3 (4.2-5.4); White Blood Count 6.7 K/mm3 (4.4-11.0)
[2021-06-28 13:14] LABS: ALB/GLOB Ratio 0.9 RATIO (0.9-2.4); AST(SGOT) 10 U/L (15-37); Alanine Aminotransfer ALT/SGPT 24 U/L (13-56); Albumin, Serum 3.7 g/dL (3.2-5.0); Alkaline Phosphatase 94 U/L (45-117); Anion Gap 5 (5-15); BUN 14 mg/dL (7-18); BUN/Creat Ratio 18.3 RATIO (10-20); Calcium,Total 9.5 mg/dL (8.5-10.1); Chloride 103 mmol/L (98-107); Creatinine, Serum 0.76 mg/dL (0.55-1.02); EST Glomerular Filtration Rate 89 mL/min (>60); Est Glom Filt Rate - Afr Amer 108 mL/min (>60); Globulin 3.9 g/dL (2.2-4.2); Glucose 392 mg/dL (74-106); Potassium 4.5 mmol/L (3.5-5.1); Protein, Total 7.6 g/dL (6.4-8.2); Sodium Level 133 mmol/L (136-145)
== END 2021-06-28 23:59 | disposition home or self-care (01) ==
PROVIDERS: PCP Internal Medicine; Referring Provider Internal Medicine; Visit Provider Internal Medicine
DX: M86.9 Osteomyelitis, unspecified (principal); L08.9 Local infection of the skin and subcutaneous tissue, unspecified; Z45.2 Encounter for adjustment and management of vascular access device
CPT/HCPCS: 36592; 80053; 85027; A4216

== ENCOUNTER 2021-06-30 14:23 | Outpatient (CLI) | payer MEDICARE, MEDICAID, SELFPAY | END 2021-06-30 23:59 | disposition home or self-care (01) | PROVIDERS: PCP Internal Medicine; Referring Provider Internal Medicine; Visit Provider Internal Medicine | DX: Z45.2 Encounter for adjustment and management of vascular access device (principal); M86.9 Osteomyelitis, unspecified; L08.9 Local infection of the skin and subcutaneous tissue, unspecified ==

== ENCOUNTER → 2021-09-13 | Outpatient (CLI) | payer MEDICARE, MEDICAID, SELFPAY ==
[2021-09-13 11:11] LABS: Absolute Lymphocyte Count 1.69 X10^3/uL (0.83-4.51); Absolute Neutrophil Count 4.3 X10^3/uL (2.0-7.7); Basophil# 0.05 X10^3/uL; Basophil% 0.7 % (0-1); Eosinophil# 0.29 X10^3/uL; Eosinophils% 4.2 % (0-5); Hematocrit 35.1 % (37-47); Hemoglobin 11.5 g/dL (12.0-15.0); Lymphocyte # 1.69 X10^3/ul (0.83-4.51); Lymphocyte % 24.7 % (19-41); Mean Corp Hgb Conc 32.8 g/dL (32-36); Mean Corpuscular Hgb 28.3 pg (27.0-32.0); Mean Corpuscular Volume 86.5 fL (81-99); Mean Platelet Vol. 9.9 fl (6.2-12.0); Monocyte# 0.47 X10^3/uL; Monocyte% 6.9 % (0-10); NRBC Flagged by Analyzer 0 % (0-5); Neutrophil % 63.1 % (47-70); Platelet Count 285 K/mm3 (150-450); RBC Distribution Width CV 14.3 % (11.6-14.6); RBC Distribution Width SD 45.5 fl (35.1-43.9); Red Blood Count 4.06 M/mm3 (4.2-5.4); White Blood Count 6.8 K/mm3 (4.4-11.0)
[2021-09-13 11:34] LABS: ALB/GLOB Ratio 1.1 RATIO (0.9-2.4); AST(SGOT) 17 U/L (15-37); Alanine Aminotransfer ALT/SGPT 26 U/L (13-56); Albumin, Serum 3.7 g/dL (3.2-5.0); Alkaline Phosphatase 101 U/L (45-117); Anion Gap 7 (5-15); BUN 14 mg/dL (7-18); BUN/Creat Ratio 16.7 RATIO (10-20); CPK Total, Creatine Kinase 101 U/L (26-192); Calcium,Total 9.3 mg/dL (8.5-10.1); Chloride 102 mmol/L (98-107); Creatinine, Serum 0.84 mg/dL (0.55-1.02); EST Glomerular Filtration Rate 80 mL/min (>60); Est Glom Filt Rate - Afr Amer 96 mL/min (>60); Globulin 3.5 g/dL (2.2-4.2); Glucose 398 mg/dL (74-106); Potassium 4.3 mmol/L (3.5-5.1); Protein, Total 7.2 g/dL (6.4-8.2); Sodium Level 134 mmol/L (136-145)
== END | disposition home or self-care (01) ==
PROVIDERS: PCP Internal Medicine; Referring Provider Internal Medicine Infectious Disease; Visit Provider Internal Medicine Infectious Disease
DX: E11.69 Type 2 diabetes mellitus with other specified complication (principal); M86.9 Osteomyelitis, unspecified
CPT/HCPCS: 36592; 80053; 82550; 85025; A4216

== ENCOUNTER → 2021-09-21 | Outpatient (CLI) | payer MEDICARE, MEDICAID, SELFPAY ==
[2021-09-21] MEDS: 0.9% NaCl PICC Flush IV (09:58)
[2021-09-21 10:08] LABS: Absolute Lymphocyte Count 1.94 X10^3/uL (0.83-4.51); Absolute Neutrophil Count 3.4 X10^3/uL (2.0-7.7); Basophil# 0.04 X10^3/uL; Basophil% 0.7 % (0-1); Eosinophils% 4.9 % (0-5); Hematocrit 33.5 % (37-47); Hemoglobin 10.8 g/dL (12.0-15.0); Lymphocyte # 1.94 X10^3/ul (0.83-4.51); Mean Corp Hgb Conc 32.2 g/dL (32-36); Mean Corpuscular Hgb 28.1 pg (27.0-32.0); Mean Corpuscular Volume 87.2 fL (81-99); Mean Platelet Vol. 9.7 fl (6.2-12.0); Monocyte# 0.38 X10^3/uL; Monocyte% 6.3 % (0-10); NRBC Flagged by Analyzer 0 % (0-5); Neutrophil # 3.39 X10^3/uL (2.7-7.7); Neutrophil % 55.8 % (47-70); Platelet Count 291 K/mm3 (150-450); RBC Distribution Width CV 14.3 % (11.6-14.6); RBC Distribution Width SD 45.4 fl (35.1-43.9); Red Blood Count 3.84 M/mm3 (4.2-5.4); White Blood Count 6.1 K/mm3 (4.4-11.0)
[2021-09-21 10:28] LABS: AST(SGOT) 14 U/L (15-37); Alanine Aminotransfer ALT/SGPT 28 U/L (13-56); Albumin, Serum 3.5 g/dL (3.2-5.0); Alkaline Phosphatase 99 U/L (45-117); Anion Gap 6 (5-15); BUN 14 mg/dL (7-18); BUN/Creat Ratio 17.7 RATIO (10-20); CPK Total, Creatine Kinase 95 U/L (26-192); Calcium,Total 8.7 mg/dL (8.5-10.1); Chloride 103 mmol/L (98-107); Creatinine, Serum 0.79 mg/dL (0.55-1.02); EST Glomerular Filtration Rate 85 mL/min (>60); Est Glom Filt Rate - Afr Amer 103 mL/min (>60); Globulin 3.4 g/dL (2.2-4.2); Glucose 398 mg/dL (74-106); Potassium 3.9 mmol/L (3.5-5.1); Protein, Total 6.9 g/dL (6.4-8.2); Sodium Level 135 mmol/L (136-145)
[2021-09-21 18:04] LABS: Xtra Tube EP Lab EXTRA TUBE
== END | disposition home or self-care (01) ==
LOC: MEDOUTP 09:38
PROVIDERS: PCP Internal Medicine; Referring Provider Internal Medicine Infectious Disease; Visit Provider Internal Medicine Infectious Disease
DX: Z45.2 Encounter for adjustment and management of vascular access device (principal); M86.9 Osteomyelitis, unspecified; E11.69 Type 2 diabetes mellitus with other specified complication
CPT/HCPCS: 36592; 80053; 82550; 85025; A4216

== ENCOUNTER → 2021-09-27 | Outpatient (CLI) | payer MEDICARE, MEDICAID, SELFPAY ==
[2021-09-27 10:55] LABS: Absolute Lymphocyte Count 1.55 X10^3/uL (0.83-4.51); Absolute Neutrophil Count 3.5 X10^3/uL (2.0-7.7); Basophil# 0.05 X10^3/uL; Basophil% 0.8 % (0-1); Eosinophil# 0.31 X10^3/uL; Eosinophils% 5.3 % (0-5); Hematocrit 35.5 % (37-47); Hemoglobin 11.9 g/dL (12.0-15.0); Lymphocyte # 1.55 X10^3/ul (0.83-4.51); Lymphocyte % 26.3 % (19-41); Mean Corp Hgb Conc 33.5 g/dL (32-36); Mean Corpuscular Hgb 28.4 pg (27.0-32.0); Mean Corpuscular Volume 84.7 fL (81-99); Mean Platelet Vol. 9.5 fl (6.2-12.0); Monocyte# 0.44 X10^3/uL; Monocyte% 7.5 % (0-10); NRBC Flagged by Analyzer 0 % (0-5); Neutrophil # 3.52 X10^3/uL (2.7-7.7); Neutrophil % 59.8 % (47-70); Platelet Count 302 K/mm3 (150-450); RBC Distribution Width CV 14.2 % (11.6-14.6); RBC Distribution Width SD 43.8 fl (35.1-43.9); Red Blood Count 4.19 M/mm3 (4.2-5.4); White Blood Count 5.9 K/mm3 (4.4-11.0)
[2021-09-27 11:13] LABS: AST(SGOT) 16 U/L (15-37); Alanine Aminotransfer ALT/SGPT 28 U/L (13-56); Albumin, Serum 3.7 g/dL (3.2-5.0); Alkaline Phosphatase 103 U/L (45-117); Anion Gap 7 (5-15); BUN 12 mg/dL (7-18); BUN/Creat Ratio 15.1 RATIO (10-20); CPK Total, Creatine Kinase 95 U/L (26-192); Calcium,Total 9.3 mg/dL (8.5-10.1); Chloride 102 mmol/L (98-107); Creatinine, Serum 0.79 mg/dL (0.55-1.02); EST Glomerular Filtration Rate 85 mL/min (>60); Est Glom Filt Rate - Afr Amer 103 mL/min (>60); Globulin 3.6 g/dL (2.2-4.2); Glucose 366 mg/dL (74-106); Potassium 4.2 mmol/L (3.5-5.1); Protein, Total 7.3 g/dL (6.4-8.2); Sodium Level 134 mmol/L (136-145)
== END | disposition home or self-care (01) ==
LOC: MEDOUTP 10:29
PROVIDERS: PCP Internal Medicine; Referring Provider Internal Medicine Infectious Disease; Visit Provider Internal Medicine Infectious Disease
DX: E11.69 Type 2 diabetes mellitus with other specified complication (principal); M86.679 Other chronic osteomyelitis, unspecified ankle and foot
CPT/HCPCS: 36592; 80053; 82550; 85025; A4216

== ENCOUNTER → 2021-10-04 | Outpatient (CLI) | payer MEDICARE, MEDICAID, SELFPAY ==
[2021-10-04 11:08] LABS: Absolute Lymphocyte Count 1.72 X10^3/uL (0.83-4.51); Absolute Neutrophil Count 3.9 X10^3/uL (2.0-7.7); Basophil# 0.05 X10^3/uL; Basophil% 0.8 % (0-1); Eosinophil# 0.26 X10^3/uL; Hematocrit 37.7 % (37-47); Hemoglobin 12.5 g/dL (12.0-15.0); Lymphocyte # 1.72 X10^3/ul (0.83-4.51); Lymphocyte % 26.7 % (19-41); Mean Corp Hgb Conc 33.2 g/dL (32-36); Mean Corpuscular Hgb 28.7 pg (27.0-32.0); Mean Corpuscular Volume 86.5 fL (81-99); Monocyte# 0.48 X10^3/uL; Monocyte% 7.4 % (0-10); NRBC Flagged by Analyzer 0 % (0-5); Neutrophil # 3.92 X10^3/uL (2.7-7.7); Neutrophil % 60.8 % (47-70); Platelet Count 268 K/mm3 (150-450); RBC Distribution Width CV 14.3 % (11.6-14.6); RBC Distribution Width SD 44.9 fl (35.1-43.9); Red Blood Count 4.36 M/mm3 (4.2-5.4); White Blood Count 6.5 K/mm3 (4.4-11.0)
[2021-10-04 11:29] LABS: ALB/GLOB Ratio 1.1 RATIO (0.9-2.4); AST(SGOT) 13 U/L (15-37); Alanine Aminotransfer ALT/SGPT 25 U/L (13-56); Albumin, Serum 3.8 g/dL (3.2-5.0); Alkaline Phosphatase 107 U/L (45-117); Anion Gap 7 (5-15); BUN 11 mg/dL (7-18); BUN/Creat Ratio 14.9 RATIO (10-20); CPK Total, Creatine Kinase 82 U/L (26-192); Calcium,Total 9.2 mg/dL (8.5-10.1); Chloride 103 mmol/L (98-107); Creatinine, Serum 0.74 mg/dL (0.55-1.02); EST Glomerular Filtration Rate 92 mL/min (>60); Est Glom Filt Rate - Afr Amer 112 mL/min (>60); Globulin 3.4 g/dL (2.2-4.2); Glucose 405 mg/dL (74-106); Potassium 4.3 mmol/L (3.5-5.1); Protein, Total 7.2 g/dL (6.4-8.2); Sodium Level 135 mmol/L (136-145)
== END | disposition home or self-care (01) ==
LOC: MEDOUTP 10:26
PROVIDERS: PCP Internal Medicine; Referring Provider Internal Medicine Infectious Disease; Visit Provider Internal Medicine Infectious Disease
DX: E11.69 Type 2 diabetes mellitus with other specified complication (principal); M86.9 Osteomyelitis, unspecified
CPT/HCPCS: 36592; 80053; 82550; 85025; A4216

== ENCOUNTER → 2021-10-11 | Outpatient (CLI) | payer MEDICARE, MEDICAID, SELFPAY ==
[2021-10-11 14:08] LABS: Absolute Lymphocyte Count 1.85 X10^3/uL (0.83-4.51); Basophil# 0.04 X10^3/uL; Basophil% 0.6 % (0-1); Eosinophil# 0.24 X10^3/uL; Eosinophils% 3.7 % (0-5); Hematocrit 38.2 % (37-47); Hemoglobin 12.7 g/dL (12.0-15.0); Lymphocyte # 1.85 X10^3/ul (0.83-4.51); Lymphocyte % 28.4 % (19-41); Mean Corp Hgb Conc 33.2 g/dL (32-36); Mean Corpuscular Hgb 28.9 pg (27.0-32.0); Mean Corpuscular Volume 86.8 fL (81-99); Mean Platelet Vol. 10.3 fl (6.2-12.0); Monocyte# 0.32 X10^3/uL; Monocyte% 4.9 % (0-10); NRBC Flagged by Analyzer 0 % (0-5); Neutrophil # 4.04 X10^3/uL (2.7-7.7); Neutrophil % 61.9 % (47-70); Platelet Count 232 K/mm3 (150-450); RBC Distribution Width CV 14.4 % (11.6-14.6); RBC Distribution Width SD 45.5 fl (35.1-43.9); White Blood Count 6.5 K/mm3 (4.4-11.0)
[2021-10-11 14:27] LABS: ALB/GLOB Ratio 1.1 RATIO (0.9-2.4); AST(SGOT) 12 U/L (15-37); Alanine Aminotransfer ALT/SGPT 24 U/L (13-56); Albumin, Serum 3.8 g/dL (3.2-5.0); Alkaline Phosphatase 98 U/L (45-117); Anion Gap 7 (5-15); BUN 13 mg/dL (7-18); BUN/Creat Ratio 14.6 RATIO (10-20); CPK Total, Creatine Kinase 89 U/L (26-192); Calcium,Total 9.3 mg/dL (8.5-10.1); Chloride 101 mmol/L (98-107); Creatinine, Serum 0.89 mg/dL (0.55-1.02); EST Glomerular Filtration Rate 75 mL/min (>60); Est Glom Filt Rate - Afr Amer 90 mL/min (>60); Globulin 3.6 g/dL (2.2-4.2); Glucose 416 mg/dL (74-106); Potassium 3.7 mmol/L (3.5-5.1); Protein, Total 7.4 g/dL (6.4-8.2); Sodium Level 133 mmol/L (136-145)
== END | disposition home or self-care (01) ==
LOC: MEDOUTP 13:29
PROVIDERS: PCP Internal Medicine; Referring Provider Internal Medicine Infectious Disease; Visit Provider Internal Medicine Infectious Disease
DX: Z45.2 Encounter for adjustment and management of vascular access device (principal); M86.9 Osteomyelitis, unspecified; E11.69 Type 2 diabetes mellitus with other specified complication
CPT/HCPCS: 36592; 80053; 82550; 85025; A4216

== ENCOUNTER 2021-10-28 13:41 | Emergency (ER) | payer MEDICARE, MEDICAID, SELFPAY ==
[2021-10-28 13:42] VITALS: BP 136/85; PULSE 99; RESP 16; TEMP 36.9; O2SAT 100; BMI 32.5
--- NOTE | 2021-10-28 14:16 | EKG12_ITS ---
Test Reason : COVID Blood Pressure : / mmHG Vent. Rate : 101 BPM Atrial Rate : 101 BPM P-R Int : 156 ms QRS Dur : 098 ms QT Int : 374 ms P-R-T Axes : 049 -35 062 degrees QTc Int : 484 ms Sinus tachycardia Left axis deviation Anterolateral infarct , age undetermined Abnormal ECG Confirmed by CECILIA MITCHELL, YUNIOR ([id number]), assistant editor MITA HAN ([id number]) on 11/01/2021 10:08:47 AM Referred By: CASSANDRA Confirmed By:YUNIOR BROOKS MD
--- NOTE | 2021-10-28 14:19 | ED.VIS.DYS ---
HPI History of Present Illness Chief Complaint: Shortness of Breath Detail of Chief Complaint: Home positive COVID test today. Informant: patient Onset/Context/Timing Onset: Days Context: gradual Timing: Intermittent Current Severity: Mild Maximum Severity: Mild Worsened by: Nothing Relieved by: Nothing Associated Symptoms cough, fever, subjective and chills Chest Pain: Positive for Intermittent and Sharp Narrative Narrative: 41-year-old female history of diabetes, CAD with prior VT and I think 3 cardiac stents. She was vaccinated against COVID. No boosters. States she was COVID-positive today after taking a home test. She started having fatigue on Sunday and then fever cough and body aches yesterday and today. Her blood sugars have been elevated over 400. She has been treating her symptoms with Tylenol and ibuprofen. Chest pain with coughing. No hemoptysis. PE Risk Factors: Negative for Cancer, OCP + Smoking + > 35, Prior DVT or PE, Recent immobilization, Recent surgery or Recent travel Prior similar symptoms: No Recent Illness/Hospitalization: No PFSH PFSH Medical History Anxiety and depression Atherosclerosis of coronary artery of [place] heart without angina pectoris Chronic pain Chronic systolic (congestive) heart failure Depression Diabetes mellitus type 1 Essential (primary) hypertension Hyperlipidemia Ischemic cardiomyopathy HERNANDEZ (nonalcoholic steatohepatitis) Non-smoker Old anterior wall myocardial infarction Sleep apnea Syncope Type 2 diabetes mellitus Home Medications aspirin 81 mg chewable tablet 81 mg PO DAILY health maintenance 03/04/15 [History Last Taken 09/29/20] sertraline 100 mg tablet 100 mg PO DAILY depression/anxiety 11/25/15 [History Last Taken 05/03/20] insulin lispro 100 unit/mL subcutaneous pen 26 units SQ TIDCM 05/02/18 [History Last Taken 05/04/20] insulin lispro 100 unit/mL subcutaneous pen See Protocol SQ TIDCM 05/02/18 [History Last Taken 05/04/20] gabapentin 300 mg capsule 300 mg PO DAILY 06/16/18 [History Last Taken 05/04/20] ondansetron 4 mg disintegrating tablet 4 mg PO Q8H PRN PRN Nausea #10 tabs 06/16/18 [Rx Last Taken 05/03/20] gabapentin 300 mg capsule 1,200 mg PO QHS 12/04/18 [History Last Taken 05/03/20] acyclovir 400 mg tablet 400 mg PO TID Check with primary doctor 09/13/19 [History Last Taken 09/24/20] insulin degludec 100 unit/mL subcutaneous solution 35 unit SQ BID 09/13/19 [History Last Taken 05/03/20] magnesium oxide 400 mg (241.3 mg magnesium) tablet 400 mg PO BID #60 tabs 09/29/19 [Rx Last Taken 05/04/20] nitroglycerin 0.4 mg sublingual tablet 0.4 mg sublingual Q5M PRN Chest Pain #1 BOTTLE 05/04/20 [Rx Last Taken 05/04/20] losartan 25 mg tablet 25 mg PO DAILY #90 tabs 10/08/20 [Rx Last Taken Unknown] furosemide 40 mg tablet (Lasix) 40 mg PO DAILY PRN weight gain #30 tabs 11/02/20 [Rx Last Taken Unknown] loratadine 10 mg tablet (Claritin) 10 mg PO DAILY PRN 01/18/21 [History Last Taken Unknown] ranolazine 1,000 mg tablet,extended release,12 hr 1,000 mg PO BID ANGINA #180 tabs 04/12/21 [Rx Last Taken Unknown] levofloxacin 750 mg tablet 750 mg PO DAILY #10 tabs 05/24/21 [Rx Last Taken Unknown] albuterol sulfate 90 mcg/actuation aerosol inhaler (Ventolin HFA) 1 - 2 puff inhalation Q4H PRN PRN Wheezing ##1 06/09/21 [Rx Last Taken Unknown] atorvastatin 80 mg tablet 80 mg PO QHS cholesterol #90 tabs 07/27/21 [Rx Last Taken Unknown] clopidogrel 75 mg tablet 75 mg PO QHS heart #90 tabs 07/27/21 [Rx Last Taken Unknown] nirmatrelvir 300 mg (150 mg x 2)-ritonavir 100 mg tablet (EUA) (Paxlovid 300 mg () See Rx Instructions PO .COMPLEX 5 days #30 tabs 10/28/21 [Rx Last Taken Unknown] Allergy/AdvReac Type Severity Reaction Status Date / Time perflutren [From [employer]] Allergy Severe Anaphylaxis Verified 10/28/21 13:41 Iodinated Contrast Media Allergy Hives Verified 10/28/21 13:41 [Iodinated Contrast Media - IV Dye] Penicillins Allergy Rash Verified 10/28/21 13:41 Sulfa (Sulfonamide Allergy Hives Verified 10/28/21 13:41 Antibiotics) Beta-Blockers AdvReac Low blood Verified 10/28/21 13:41 (Beta-Adrenergic Bloc pressure metformin AdvReac Upset Verified 10/28/21 13:41 Stomach nitroglycerin AdvReac drops HR Verified 10/28/21 13:41 ticagrelor [From Brilinta] AdvReac Bleeding Verified 10/28/21 13:41 Family History Father Cancer lung cancer Brother Diabetes Sister Diabetes Heart disease Hypertension High cholesterol Mother Heart disease High cholesterol Hypertension CVA (cerebral vascular accident) Grandmother Heart disease High cholesterol Hypertension Grandfather Heart disease High cholesterol Hypertension CVA (cerebral vascular accident) Surgical History History of coronary artery stent placement (09/29/20) History of left heart catheterization (05/05/20) History of lumbar fusion History of tubal ligation Social History Smoking Status: Never smoker alcohol intake: never substance use type: does not use ROS ROS ED ROS Narrative Cough. Fever and chills.. Elevated blood sugar. Review of Systems ROS Unobtainable: Denies due to encephalopathy Constitutional Constitutional ED: Reports chills and fever(s) Eyes Eyes: Denies blurry vision ENT ENT ED: Denies ear pain, rhinorrhea or sore throat Cardiovascular Cardiovascular: Reports chest pain Respiratory/Chest Respiratory/Chest: Reports cough and dyspnea Gastrointestinal Gastrointestinal: Denies abdominal pain, constipation, diarrhea, melena, nausea or vomiting Genitourinary Genitourinary ED: Denies dysuria Musculoskeletal Musculoskeletal: Reports myalgias; Denies arthralgias Integumentary Denies abscess Neurologic Neurologic: Denies headache(s) Psychiatric Psychiatric: Denies anxiety Endocrine Endocrinology: Denies cold intolerance Hematologic/Lymphatic Hematologic/Lymphatic: Denies easy bleeding Allergic/Immunologic Allergic/Immunologic ED: Denies mouth swelling EXAM Physical Exam Narrative Exam Narrative: 5-year-old female no acute distress vital signs stable afebrile. Pulse ox 9% on room air. No hypoxia. H EENT exam unremarkable. Moist extremities. Neck nontender no lymphadenopathy. Lungs clear to auscultation bilaterally. Heart regular rhythm no murmur. Abdomen soft nontender. Moving all 4 extremities. Calves are nontender without edema or cords. Neurologically she is awake and alert with no focal motor deficit. Const Vital Signs: 10/28/21 13:42 Temperature 98.5 F Temperature Source Temporal Pulse Rate 99 Respiratory Rate 16 Blood Pressure 136/85 H Blood Pressure Mean 102 Pulse Ox 100 Oxygen Delivery Method Room Air Positive well nourished and well developed General Appearance ED: well developed and NAD; Negative for pallor HEENT Reports moist mucous membranes; Denies dry mucous membranes atraumatic; Negative for trauma or tenderness Mouth ED: No dry mucous membranes Mouth: No dry mucous membranes Eyes PERRL and EOMs intact bilaterally General Eye ED: Negative for pale conjunctiva or scleral icterus Neck no lymphadenopathy, supple, no meningeal signs and no JVD General: Negative for tenderness Resp normal respiratory effort and clear to auscultation bilaterally Effort and Inspection: Negative for pain with movement Auscultation: Negative for rales, rhonchi or wheezes Cardio regular rate, regular rhythm, S1 normal heart sound, S2 normal heart sound and no murmurs Rate: Negative for bradycardia Rhythm: Negative for abnormal rhythm GI non-tender, non-distended and no masses Auscultation: normoactive bowel sounds Palpation: soft; Negative for tender, guarding, hepatomegaly, splenomegaly or mass Back/Spine no CVA tenderness and normal to inspection General Back: Negative for CVA tenderness Extremity normal to inspection General Extremety ED: Negative for edema or tenderness General Extremity: Negative for edema Neuro oriented x3 and no sensory deficits noted Sensorium / Orientation: alert, oriented to person, oriented to place and oriented to time; Negative for orientation impaired, confused, lethargic or stuporous Speech: speech normal Motor Exam: strength 5/5 throughout Psych mental status grossly normal Attitude: No agitated Mood & Affect: Negative for depressed Thought Process: normal thought process Skin no wounds General Skin Exam: Negative for jaundice or pallor Lesions: no lesions Rashes: no rashes Trauma: Negative for abrasion MDM MDM MDM Narrative Medical decision making narrative: Patient COVID-positive with URI symptoms and shortness of breath. Also concerned because her blood sugars are over 400. She will be treated IV fluids. Work-up will be obtained also to rule out DKA. Repeat exam patient is doing well at 4 PM. She will be given 12 units subcu of insulin for her elevated blood sugar. She uses sliding scale home with every meal. She will watch her blood sugars closely tonight. She and I discussed treatment options she does want to be treated with the oral COVID medication. She will be started on that. She knows to watch her blood sugars closely. Return if worse. Lab Data Attestation: I reviewed the patient's lab results. Lab results narrative: CBC shows a white count of 4.5. H&H 12.8 and 38. Platelets 201. Electrolytes sodium 133 gap at 9 normal BUN and creatinine. Glucose is elevated 414. Acetone is negative. No signs of DKA with a normal gap and negative acetone. Clinically she does not look like she is in DKA. Labs: Laboratory Results - last 24 hr 10/28/21 10/28/21 10/28/21 14:47 14:47 14:47 WBC 4.5 RBC 4.37 Hgb 12.8 Hct 38.1 MCV 87.2 MCH 29.3 MCHC 33.6 RDW Std Deviation 42.4 RDW Coeff of [place] 13.4 Plt Count 201 MPV 10.1 Immature Gran % (Auto) 0.400 Neut % (Auto) 73.2 H Lymph % (Auto) 14.3 L Warren % (Auto) 10.1 H Eos % (Auto) 1.1 Baso % (Auto) 0.9 Absolute Neuts (auto) 3.3 Absolute Lymphs (auto) 0.64 L Nucleated RBC % 0 Sodium 133 L Potassium 3.9 Chloride 99 Carbon Dioxide 25.0 Anion Gap 9 BUN 11 Creatinine 0.94 Estim Creat Clear Calc 77.36 Est GFR (MDRD) Af Amer 84 Est GFR (MDRD) Non-Af 70 BUN/Creatinine Ratio 11.7 Glucose 414 H Calcium 9.4 Acetone Level NEGATIVE Radiography Chest X-Ray - ED: 1 View, Read by ED Physician, Heart, Mediastinum, Bony Structures, No Acute Disease and Cardiomegaly Diagnostic Testing: Clinical Impression(s) from Imaging Studies Chest X-Ray 10/28/21 14:45 IMPRESSION: No acute abnormality is seen. Electronically Signed: Lupillo Mckeon MD at 15:12 EDT , Chest x-ray, portable, single view shows no acute abnormality. Normal cardiac silhouette. Normal mediastinum. Normal lung ambriz. Interpreted both by myself and the radiologist. Rhythm Strip Rhythm Strip: Sinus Tach Rate: 101 EKG Initial EKG: Attestation: I personally reviewed and interpreted this EKG as follows: Interpretation: No Acute Injury Pattern and Sinus Tachycardia Comments: Sinus tachycardia rate of 1 no acute signs of VT or ischemia. Discharge Plan Triage Chief Complaint: Shortness of Breath ED Provider: Hermes Nieto Dx/Rx/DC Orders Clinical Impression: COVID-19, Hyperglycemia due to diabetes mellitus, History of VT (myocardial infarction) Instructions: Human Coronaviruses, ED Diabetic Hyperglycemia Prescriptions: New Paxlovid (EUA) 300 mg (150 mg x 2)-100 mg tablet See Rx Instructions .ROUTE .COMPLEX 5 Days Qty: 30 0RF Rx Instructions: take TWO 150 mg tablets of nirmatrelvir with ONE 100 mg tablet of ritonavir twice daily for 5 days No Action losartan 25 mg tablet 25 mg PO DAILY Qty: 90 3RF aspirin 81 MG tablet,chewable 81 mg PO DAILY Label Comments: heart health sertraline 100 MG tablet 100 mg PO DAILY Label Comments: depression insulin lispro 100 insulin pen 26 units SQ TIDCM insulin lispro 100 insulin pen See Protocol SQ TIDCM Protocol: 6. Sliding Scale Insulin Custom Condition: mg/dl range Dose/Route: Number of Units Condition: 150-199 Dose/Route: 2 Condition: 200-249 Dose/Route: 4 Condition: 250-299 Dose/Route: 6 Condition: 300-349 Dose/Route: 8 Condition: 350> Instruction: CALL MD Protocol Text: Custom Sliding Scale gabapentin 300 MG capsule 300 mg PO DAILY ondansetron 4 MG tablet 4 mg PO Q8H PRN PRN (Reason: Nausea) Qty: 10 0RF gabapentin 300 MG capsule 1,200 mg PO QHS acyclovir 400 MG tablet 400 mg PO TID insulin degludec 100 UNIT/ML solution 35 unit SQ BID loratadine [Claritin] 10 mg tablet 10 mg PO DAILY PRN levofloxacin 750 mg tablet 750 mg PO DAILY Qty: 10 0RF albuterol sulfate [Ventolin HFA] 1 INHALER inhaler 1 - 2 puff inhalation Q4H PRN PRN (Reason: Wheezing) Qty: 1 0RF magnesium oxide 400 mg (241.3 mg magnesium) tablet 400 mg PO BID Qty: 60 11RF nitroglycerin 0.4 mg tablet, sublingual 0.4 mg SUBLINGUAL Q5M PRN (Reason: Chest Pain) Qty: 1 0RF Label Comments: chest pain Rx Instructions: Place one tab under tongue every 5 minutes x 3 doses as needed furosemide [Lasix] 40 mg tablet 40 mg PO DAILY PRN (Reason: weight gain) Qty: 30 0RF Rx Instructions: take for 5 days and then as instructed ranolazine 1,000 mg tablet extended release 12 hr 1,000 mg PO BID Qty: 180 3RF atorvastatin 80 mg tablet 80 mg PO QHS Qty: 90 3RF clopidogrel 75 mg tablet 75 mg PO QHS Qty: 90 3RF Primary Care Provider: Jhony Smith Referrals: Jhony Smith MD [Primary Care Provider] - 1 Week if not improving Activity Restrictions/Additional Instructions: Plenty of fluids and rest. Tylenol and Motrin for your fever and body aches. Follow-up with your doctor if not improving return emergency department if worse. You were given 12 units of insulin here. Watch her blood sugars closely at home. Make sure you recheck your blood sugar tonight before bedtime. The COVID medication Paxlovid will take over the next 5 days. While you are taking this medication hold your cholesterol medications for the next 8 days. Disposition Disposition: Home, Self Care
--- NOTE | 2021-10-28 14:45 | RAD_ITS ---
STUDY: X-RAY CHEST REASON FOR EXAM: Female, 41 years old. Dyspnea TECHNIQUE: Single AP portable view of the chest. COMPARISON: Comparison is made with prior study dated 06/09/2021. FINDINGS: EKG electrodes are seen. Mild elevation of the right hemidiaphragm. There is no demonstrated pleural abnormality. Normal size heart. Normal mediastinum and charlene. Normal visualized pulmonary arteries. Normal visualized aortic arch and descending thoracic aorta. Normal visualized thoracic spine. Normal visualized ribs, clavicles, and shoulders. There is no demonstrated abnormality of the visualized soft tissue structures of the upper abdomen. RAD/Chest 1 View (Portable) IMPRESSION: No acute abnormality is seen. Electronically Signed: Lupillo Mckeon MD at 15:12 EDT ,
[2021-10-28] MEDS: 0.9% Normal Saline 1,000 ML 1000 ML IV (14:46)
[2021-10-28 15:00] LABS: Absolute Lymphocyte Count 0.64 X10^3/uL (0.83-4.51); Absolute Neutrophil Count 3.3 X10^3/uL (2.0-7.7); Basophil# 0.04 X10^3/uL; Basophil% 0.9 % (0-1); Eosinophil# 0.05 X10^3/uL; Eosinophils% 1.1 % (0-5); Hematocrit 38.1 % (37-47); Hemoglobin 12.8 g/dL (12.0-15.0); Lymphocyte # 0.64 X10^3/ul (0.83-4.51); Lymphocyte % 14.3 % (19-41); Mean Corp Hgb Conc 33.6 g/dL (32-36); Mean Corpuscular Hgb 29.3 pg (27.0-32.0); Mean Corpuscular Volume 87.2 fL (81-99); Mean Platelet Vol. 10.1 fl (6.2-12.0); Monocyte# 0.45 X10^3/uL; Monocyte% 10.1 % (0-10); NRBC Flagged by Analyzer 0 % (0-5); Neutrophil # 3.27 X10^3/uL (2.7-7.7); Neutrophil % 73.2 % (47-70); Platelet Count 201 K/mm3 (150-450); RBC Distribution Width CV 13.4 % (11.6-14.6); RBC Distribution Width SD 42.4 fl (35.1-43.9); Red Blood Count 4.37 M/mm3 (4.2-5.4); White Blood Count 4.5 K/mm3 (4.4-11.0)
[2021-10-28 15:18] LABS: Anion Gap 9 (5-15); BUN 11 mg/dL (7-18); BUN/Creat Ratio 11.7 RATIO (10-20); Calcium,Total 9.4 mg/dL (8.5-10.1); Chloride 99 mmol/L (98-107); Creatinine, Serum 0.94 mg/dL (0.55-1.02); EST Glomerular Filtration Rate 70 mL/min (>60); Est Glom Filt Rate - Afr Amer 84 mL/min (>60); Estimated Creatinine Clearance 77.36 ml/min; Glucose 414 mg/dL (74-106); Potassium 3.9 mmol/L (3.5-5.1); Sodium Level 133 mmol/L (136-145)
[2021-10-28] MEDS: Ondansetron 4 MG/2 ML Vial IV (15:32)
[2021-10-28] MEDS: Ketorolac 30 MG/ML Syringe IV (15:32)
[2021-10-28 16:00] VITALS: BP 103/84; PULSE 101; RESP 18; O2SAT 97
[2021-10-28] MEDS: Insulin Lispro 100 UNIT/ML INSULN.PEN 12 UNIT SC (16:29)
[2021-10-28 16:32] VITALS: BP 106/78; PULSE 88; RESP 14; TEMP 37.2; O2SAT 100
== END 2021-10-28 17:03 | disposition home or self-care (01) ==
PROVIDERS: Emergency Provider Emergency Medicine; PCP Internal Medicine; Visit Provider Emergency Medicine
DX: U07.1 COVID-19 (principal); I50.22 Chronic systolic (congestive) heart failure; I11.0 Hypertensive heart disease with heart failure; E10.65 Type 1 diabetes mellitus with hyperglycemia; I25.5 Ischemic cardiomyopathy; I25.10 Atherosclerotic heart disease of native coronary artery without angina pectoris; E78.5 Hyperlipidemia, unspecified; I25.2 Old myocardial infarction; Z95.5 Presence of coronary angioplasty implant and graft
CPT/HCPCS: 71045; 80048; 82009; 85025; 93005; 96361; 96374; 96375; 99282; J2405

== ENCOUNTER 2021-10-30 18:45 | Emergency (ER) | payer MEDICARE, MEDICAID, SELFPAY ==
[2021-10-30 18:47] VITALS: BP 136/85; PULSE 81; RESP 15; TEMP 36.6; O2SAT 97; BMI 33.6
--- NOTE | 2021-10-30 19:09 | EKG12_ITS ---
Test Reason : SOB Blood Pressure : / mmHG Vent. Rate : 084 BPM Atrial Rate : 084 BPM P-R Int : 164 ms QRS Dur : 096 ms QT Int : 438 ms P-R-T Axes : 045 -40 049 degrees QTc Int : 517 ms Normal sinus rhythm Left axis deviation Anterolateral infarct , age undetermined , cannot be excluded Prolonged QT Abnormal ECG Confirmed by CECILIA MITCHELL, YUNIOR ([id number]), videotape editor MITA HAN ([id number]) on 11/01/2021 9:48:35 AM Referred By: AILEEN Confirmed By:YUNIOR BROOKS MD
--- NOTE | 2021-10-30 19:12 | EX.ED.DYSGE1 ---
HPI History of Present Illness Chief Complaint: General Illness Informant: patient Narrative Narrative: Patient presents with nausea vomiting and generalized weakness with COVID. She states she started feeling kind of weak and tired and achy on Sunday about 6 days ago. But she thought it was because she was busy moving. On she developed significant myalgias nonproductive cough fevers chills nausea vomiting and mild soft stool. No blood in the vomitus. No hematemesis. She states she has some chest soreness but is really just with coughing and in the sternal area. Never had a DVT PE, surgery travel immobilization or family history of this. She is on Plavix and aspirin. She has had significant heart disease with multiple stents. She states the soreness when she coughs is nothing like the heart attack pain. She has Zofran at home for nausea and vomiting because she has some gastroparesis. She has been taking this but is not working. She is not able to keep her meds down. She has been taking the medicines but they come back up. She has had DKA. She does not think she is in DKA but she is concerned about that. She had a home test for COVID that was positive Sunday. She was seen here. They did discuss antivirals and she was placed on Paxil bid. She states she almost feels as though she gets sicker when she tries to take the meds. [facility] Medical History Anxiety and depression Atherosclerosis of coronary artery of [place] heart without angina pectoris Chronic pain Chronic systolic (congestive) heart failure Depression Diabetes mellitus type 1 Essential (primary) hypertension Hyperlipidemia Ischemic cardiomyopathy HERNANDEZ (nonalcoholic steatohepatitis) Non-smoker Old anterior wall myocardial infarction Sleep apnea Syncope Type 2 diabetes mellitus Home Medications aspirin 81 mg chewable tablet 81 mg PO DAILY health maintenance 03/04/15 [History Last Taken 09/29/20] sertraline 100 mg tablet 100 mg PO DAILY depression/anxiety 11/25/15 [History Last Taken 05/03/20] insulin lispro 100 unit/mL subcutaneous pen 26 units SQ TIDCM 05/02/18 [History Last Taken 05/04/20] insulin lispro 100 unit/mL subcutaneous pen See Protocol SQ TIDCM 05/02/18 [History Last Taken 05/04/20] gabapentin 300 mg capsule 300 mg PO DAILY 06/16/18 [History Last Taken 05/04/20] ondansetron 4 mg disintegrating tablet 4 mg PO Q8H PRN PRN Nausea #10 tabs 06/16/18 [Rx Last Taken 05/03/20] gabapentin 300 mg capsule 1,200 mg PO QHS 12/04/18 [History Last Taken 05/03/20] acyclovir 400 mg tablet 400 mg PO TID 09/13/19 [History Last Taken 09/24/20] insulin degludec 100 unit/mL subcutaneous solution 35 unit SQ BID 09/13/19 [History Last Taken 05/03/20] magnesium oxide 400 mg (241.3 mg magnesium) tablet 400 mg PO BID #60 tabs 09/29/19 [Rx Last Taken 05/04/20] nitroglycerin 0.4 mg sublingual tablet 0.4 mg sublingual Q5M PRN Chest Pain #1 BOTTLE 05/04/20 [Rx Last Taken 05/04/20] losartan 25 mg tablet 25 mg PO DAILY #90 tabs 10/08/20 [Rx Last Taken Unknown] furosemide 40 mg tablet (Lasix) 40 mg PO DAILY PRN weight gain #30 tabs 11/02/20 [Rx Last Taken Unknown] loratadine 10 mg tablet (Claritin) 10 mg PO DAILY PRN allergies 01/18/21 [History Last Taken Unknown] ranolazine 1,000 mg tablet,extended release,12 hr 1,000 mg PO BID ANGINA #180 tabs 04/12/21 [Rx Last Taken Unknown] albuterol sulfate 90 mcg/actuation aerosol inhaler (Ventolin HFA) 1 - 2 puff inhalation Q4H PRN PRN Wheezing ##1 06/09/21 [Rx Last Taken Unknown] atorvastatin 80 mg tablet 80 mg PO QHS cholesterol #90 tabs 07/27/21 [Rx Last Taken Unknown] clopidogrel 75 mg tablet 75 mg PO QHS heart #90 tabs 07/27/21 [Rx Last Taken Unknown] nirmatrelvir 300 mg (150 mg x 2)-ritonavir 100 mg tablet (EUA) (Paxlovid 300 mg () See Rx Instructions PO .COMPLEX 5 days #30 tabs 10/28/21 [Rx Last Taken Unknown] promethazine 25 mg tablet 25 mg PO Q6H PRN nausea and vomiting #20 tabs 10/30/21 [Rx Last Taken Unknown] Allergy/AdvReac Type Severity Reaction Status Date / Time perflutren [From Definity] Allergy Severe Anaphylaxis Verified 10/30/21 18:52 Iodinated Contrast Media Allergy Hives Verified 10/30/21 18:52 [Iodinated Contrast Media - IV Dye] Penicillins Allergy Rash Verified 10/30/21 18:52 Sulfa (Sulfonamide Allergy Hives Verified 10/30/21 18:52 Antibiotics) Beta-Blockers AdvReac Low blood Verified 10/30/21 18:52 (Beta-Adrenergic Bloc pressure metformin AdvReac Upset Verified 10/30/21 18:52 Stomach nitroglycerin AdvReac drops HR Verified 10/30/21 18:52 ticagrelor [From Brilinta] AdvReac Bleeding Verified 10/30/21 18:52 Family History Father Cancer lung cancer Brother Diabetes Sister Diabetes Heart disease Hypertension High cholesterol Mother Heart disease High cholesterol Hypertension CVA (cerebral vascular accident) Grandmother Heart disease High cholesterol Hypertension Grandfather Heart disease High cholesterol Hypertension CVA (cerebral vascular accident) Surgical History History of coronary artery stent placement (09/29/20) History of left heart catheterization (05/05/20) History of lumbar fusion History of tubal ligation Social History Smoking Status: Never smoker alcohol intake: never substance use type: does not use ROS ROS ED Constitutional Constitutional ED: Reports chills, fever(s) and subjective Eyes Eyes: Denies change in vision ENT ENT ED: Reports rhinorrhea; Denies sore throat Cardiovascular Cardiovascular: Reports chest pain and other Details: States sore with coughing ; Denies palpitations or racing heartbeat Respiratory/Chest Respiratory/Chest: Reports cough and other Details: She states sometimes she has some mild dyspnea. But she has O2 sat at home and is always been good at 96 or more. She was able to bring up some sputum in the ambulance and that helped. But it was clear. No blood. She has a history of bronchitis but no asthma or COPD. She is wondering if a breathing treatment might help her so this will be tried. Gastrointestinal Gastrointestinal: Reports diarrhea, nausea and vomiting; Denies abdominal pain Genitourinary Genitourinary ED: Denies dysuria Musculoskeletal Musculoskeletal: Reports arthralgias and myalgias Integumentary Denies rash Neurologic Neurologic: Denies paresthesias or weakness Endocrine Endocrinology: Denies polydipsia or polyuria Hematologic/Lymphatic Hematologic/Lymphatic: Reports easy bleeding and easy bruising Allergic/Immunologic Allergic/Immunologic ED: Denies urticaria EXAM Physical Exam Const Vital Signs: 10/30/21 18:47 10/30/21 19:26 10/30/21 19:15 Temperature 98 F Temperature Source Temporal Pulse Rate 81 95 85 Respiratory Rate 15 16 14 Respiratory Effort Respiratory Pattern Blood Pressure 136/85 H 122/80 H Blood Pressure Mean 102 94 Pulse Ox 97 95 Oxygen Delivery Method Room Air Room Air 10/30/21 19:41 10/30/21 19:54 Temperature Temperature Source Pulse Rate 86 Respiratory Rate 19 H Respiratory Effort Short of Breath Respiratory Pattern Tachypnea Blood Pressure 105/86 H Blood Pressure Mean 92 Pulse Ox 94 Oxygen Delivery Method Positive well nourished and well developed General Appearance ED: well developed HEENT Reports dry mucous membranes HEENT Narrative: Mildly dry Mouth ED: Yes dry mucous membranes Mouth: dry mucous membranes Eyes EOMs intact bilaterally Neck no JVD Resp normal respiratory effort Auscultation: Negative for rales, rhonchi or wheezes Cardio regular rate, regular rhythm and no murmurs GI normal to inspection, nondistended, normoactive bowel sounds, non-tender and non-distended Back/Spine no CVA tenderness Back/Spine Narrative: Well-healed lumbar scar. Extremity normal to inspection Extremity Narrative: No tenderness, edema, cords, distended veins or asymmetry. Neuro oriented x3 Psych mental status grossly normal Skin no rashes or lesions noted MDM MDM MDM Narrative Medical decision making narrative: Patient's labs show a low white count which is typical with COVID. Electrolytes overall look great. Liver function test is good. Acetone is negative. Glucose is pretty good for her at 252. Lactate is normal. Chest I x-ray is not showing any acute process. Patient is feeling better with IV fluids and Zofran. She states that when she takes Paxil that she has an absolutely horrible taste in her mouth that makes her extremely nauseated. She does not want to continue this drug. I do not think that is unreasonable considering she is vaccinated not hypoxic and overall doing well other than the nausea and vomiting. Plan will be to get her home with Phenergan. She already has Zofran. She is comfortable with this plan. Lab Data Attestation: I reviewed the patient's lab results. Labs: Laboratory Results - last 24 hr 10/30/21 10/30/21 10/30/21 19:18 19:18 19:18 WBC 3.3 L RBC 4.50 Hgb 13.0 Hct 38.8 MCV 86.2 MCH 28.9 MCHC 33.5 RDW Std Deviation 42.9 RDW Coeff of [place] 13.6 Plt Count 203 MPV 10.4 Immature Gran % (Auto) 0.300 Neut % (Auto) 45.3 L Lymph % (Auto) 41.8 H [place] % (Auto) 9.2 Eos % (Auto) 3.1 Baso % (Auto) 0.3 Absolute Neuts (auto) 1.5 L Absolute Lymphs (auto) 1.36 Nucleated RBC % 0 Sodium 137 Potassium 3.8 Chloride 103 Carbon Dioxide 27.0 Anion Gap 7 BUN 10 Creatinine 0.75 Estim Creat Clear Calc 96.96 Est GFR (MDRD) Af Amer 110 Est GFR (MDRD) Non-Af 91 BUN/Creatinine Ratio 13.4 Glucose 252 H Lactic Acid Calcium 9.0 Magnesium 1.9 Total Bilirubin 0.30 AST 31 ALT 41 Alkaline Phosphatase 59 Troponin I High Sens 4 Total Protein 6.7 Albumin 3.5 Globulin 3.2 Albumin/Globulin Ratio 1.1 Acetone Level NEGATIVE 10/30/21 19:18 WBC RBC Hgb Hct MCV MCH MCHC RDW Std Deviation RDW Coeff of [place] Plt Count MPV Immature Gran % (Auto) Neut % (Auto) Lymph % (Auto) [place] % (Auto) Eos % (Auto) Baso % (Auto) Absolute Neuts (auto) Absolute Lymphs (auto) Nucleated RBC % Sodium Potassium Chloride Carbon Dioxide Anion Gap BUN Creatinine Estim Creat Clear Calc Est GFR (MDRD) Af Amer Est GFR (MDRD) Non-Af BUN/Creatinine Ratio Glucose Lactic Acid 1.9 Calcium Magnesium Total Bilirubin AST ALT Alkaline Phosphatase Troponin I High Sens Total Protein Albumin Globulin Albumin/Globulin Ratio Acetone Level Radiography Diagnostic Testing: Clinical Impression(s) from Imaging Studies Chest X-Ray 10/30/21 19:40 IMPRESSION: No acute cardiopulmonary disease or major interval change. Electronically Signed: Jake Steven DO at 20:07 EDT Reading Location ID and State: [address] [place] [address] Tel [phone], Service support , EKG Initial EKG: Comments: EKG done for chest pain generalized weakness nausea vomiting read by me shows a normal sinus rhythm with overall rate of 84. No ventricular ectopy. Mild nonspecific ST and T wave flattening but no acute sign of infarct or ischemia. IL interval, QRS duration are normal. QTc is a bit long at 517 ms. Overall, the EKG is similar to 24 May 2021. I looked at several other EKGs in her QTC does run in the high 400s to very low 500s. Discharge Plan Triage Chief Complaint: General Illness ED Provider: Rui Coburn Dx/Rx/DC Orders Clinical Impression: COVID-19, Nausea & vomiting, Intolerance of drug Instructions: Coronavirus Disease 2019 (COVID-19): Caring for Yourself or Others Prescriptions: New promethazine 25 mg tablet 25 mg PO Q6H PRN (Reason: nausea and vomiting) Qty: 20 0RF No Action losartan 25 mg tablet 25 mg PO DAILY Qty: 90 3RF aspirin 81 MG tablet,chewable 81 mg PO DAILY Label Comments: heart health sertraline 100 MG tablet 100 mg PO DAILY Label Comments: depression insulin lispro 100 insulin pen 26 units SQ TIDCM insulin lispro 100 insulin pen See Protocol SQ TIDCM Protocol: 6. Sliding Scale Insulin Custom Condition: mg/dl range Dose/Route: Number of Units Condition: 150-199 Dose/Route: 2 Condition: 200-249 Dose/Route: 4 Condition: 250-299 Dose/Route: 6 Condition: 300-349 Dose/Route: 8 Condition: 350> Instruction: CALL MD Protocol Text: Custom Sliding Scale gabapentin 300 MG capsule 300 mg PO DAILY ondansetron 4 MG tablet 4 mg PO Q8H PRN PRN (Reason: Nausea) Qty: 10 0RF gabapentin 300 MG capsule 1,200 mg PO QHS acyclovir 400 MG tablet 400 mg PO TID insulin degludec 100 UNIT/ML solution 35 unit SQ BID loratadine [Claritin] 10 mg tablet 10 mg PO DAILY PRN (Reason: allergies) albuterol sulfate [Ventolin HFA] 1 INHALER inhaler 1 - 2 puff inhalation Q4H PRN PRN (Reason: Wheezing) Qty: 1 0RF Paxlovid (EUA) 300 mg (150 mg x 2)-100 mg tablet See Rx Instructions .ROUTE .COMPLEX 5 Days Qty: 30 0RF Rx Instructions: take TWO 150 mg tablets of nirmatrelvir with ONE 100 mg tablet of ritonavir twice daily for 5 days magnesium oxide 400 mg (241.3 mg magnesium) tablet 400 mg PO BID Qty: 60 11RF nitroglycerin 0.4 mg tablet, sublingual 0.4 mg SUBLINGUAL Q5M PRN (Reason: Chest Pain) Qty: 1 0RF Label Comments: chest pain Rx Instructions: Place one tab under tongue every 5 minutes x 3 doses as needed furosemide [Lasix] 40 mg tablet 40 mg PO DAILY PRN (Reason: weight gain) Qty: 30 0RF Rx Instructions: take for 5 days and then as instructed ranolazine 1,000 mg tablet extended release 12 hr 1,000 mg PO BID Qty: 180 3RF atorvastatin 80 mg tablet 80 mg PO QHS Qty: 90 3RF clopidogrel 75 mg tablet 75 mg PO QHS Qty: 90 3RF Primary Care Provider: Jhony Smith Referrals: Jhony Smith MD [Primary Care Provider] - 3-5 Days if not improving Disposition Disposition: Home, Self Care
[2021-10-30 19:15] VITALS: BP 122/80; PULSE 85; RESP 14; O2SAT 95
[2021-10-30 19:26] VITALS: PULSE 95; RESP 16
[2021-10-30] MEDS: Ipratropium/Albuterol Sulfate 3 ML AMPUL.NEB INHALATION (19:26)
[2021-10-30] MEDS: Ondansetron 4 MG/2 ML Vial IV (19:34)
[2021-10-30] MEDS: proMETHazine 25 MG/ML Syringe 12.5 MG IM (19:34)
--- NOTE | 2021-10-30 19:40 | RAD_ITS ---
STUDY: X-RAY CHEST REASON FOR EXAM: Female, 41 years old. Cough. Tested COVID +2 days ago. Vomiting and fever. TECHNIQUE: Single AP portable view of the chest. COMPARISON: 08/28/2021. FINDINGS: The lungs are clear and expanded. There is no demonstrated pleural abnormality. Normal size heart. Normal mediastinum and charlene. Normal visualized pulmonary arteries. Normal visualized aortic arch and descending thoracic aorta. Normal visualized thoracic spine. Normal visualized ribs, clavicles, and shoulders. There is no demonstrated abnormality of the visualized soft tissue structures of the upper abdomen. RAD/Chest 1 View (Portable) IMPRESSION: No acute cardiopulmonary disease or major interval change. Electronically Signed: Jake Steven DO at 20:07 EDT ,
[2021-10-30 19:45] LABS: Absolute Lymphocyte Count 1.36 X10^3/uL (0.83-4.51); Absolute Neutrophil Count 1.5 X10^3/uL (2.0-7.7); Basophil# 0.01 X10^3/uL; Basophil% 0.3 % (0-1); Eosinophils% 3.1 % (0-5); Hematocrit 38.8 % (37-47); Lymphocyte # 1.36 X10^3/ul (0.83-4.51); Lymphocyte % 41.8 % (19-41); Mean Corp Hgb Conc 33.5 g/dL (32-36); Mean Corpuscular Hgb 28.9 pg (27.0-32.0); Mean Corpuscular Volume 86.2 fL (81-99); Mean Platelet Vol. 10.4 fl (6.2-12.0); Monocyte% 9.2 % (0-10); NRBC Flagged by Analyzer 0 % (0-5); Neutrophil # 1.47 X10^3/uL (2.7-7.7); Neutrophil % 45.3 % (47-70); Platelet Count 203 K/mm3 (150-450); RBC Distribution Width CV 13.6 % (11.6-14.6); RBC Distribution Width SD 42.9 fl (35.1-43.9); White Blood Count 3.3 K/mm3 (4.4-11.0)
[2021-10-30 19:54] VITALS: BP 105/86; PULSE 86; RESP 19; O2SAT 94
[2021-10-30 20:08] LABS: Lactic Acid 1.9 mmol/L (0.4-1.9)
[2021-10-30 20:15] LABS: ALB/GLOB Ratio 1.1 RATIO (0.9-2.4); AST(SGOT) 31 U/L (15-37); Alanine Aminotransfer ALT/SGPT 41 U/L (13-56); Albumin, Serum 3.5 g/dL (3.2-5.0); Alkaline Phosphatase 59 U/L (45-117); Anion Gap 7 (5-15); BUN 10 mg/dL (7-18); BUN/Creat Ratio 13.4 RATIO (10-20); Chloride 103 mmol/L (98-107); Creatinine, Serum 0.75 mg/dL (0.55-1.02); EST Glomerular Filtration Rate 91 mL/min (>60); Est Glom Filt Rate - Afr Amer 110 mL/min (>60); Estimated Creatinine Clearance 96.96 ml/min; Globulin 3.2 g/dL (2.2-4.2); Glucose 252 mg/dL (74-106); Magnesium 1.9 mg/dL (1.6-2.6); Potassium 3.8 mmol/L (3.5-5.1); Protein, Total 6.7 g/dL (6.4-8.2); Sodium Level 137 mmol/L (136-145); Troponin-I HS 4 pg/mL (3.0-54.0)
== END 2021-10-30 22:15 | disposition home or self-care (01) ==
PROVIDERS: Emergency Provider Emergency Medicine; PCP Internal Medicine; Visit Provider Emergency Medicine
DX: U07.1 COVID-19 (principal); I11.0 Hypertensive heart disease with heart failure; I50.22 Chronic systolic (congestive) heart failure; E10.43 Type 1 diabetes mellitus with diabetic autonomic (poly)neuropathy; I25.5 Ischemic cardiomyopathy; I25.10 Atherosclerotic heart disease of native coronary artery without angina pectoris; K31.84 Gastroparesis; E78.5 Hyperlipidemia, unspecified; R11.2 Nausea with vomiting, unspecified; I25.2 Old myocardial infarction
CPT/HCPCS: 71045; 80053; 82009; 83605; 83735; 84484; 85025; 93005; 94640; 96372; 96374; 99285; A4216; J2405

== ENCOUNTER 2022-05-05 07:17 | Emergency (ER) | payer MEDICARE, MEDICAID, SELFPAY ==
[2022-05-05] VITALS (30 sets, daily range): BP systolic 103–142; BP diastolic 66–89; PULSE 81–91; RESP 16–18; TEMP 36.1–36.6; O2SAT 97–100; BMI 33.5
--- NOTE | 2022-05-05 07:29 | EKG12_ITS ---
Test Reason : CP Blood Pressure : / mmHG Vent. Rate : 086 BPM Atrial Rate : 086 BPM P-R Int : 164 ms QRS Dur : 098 ms QT Int : 398 ms P-R-T Axes : 051 -13 066 degrees QTc Int : 476 ms Normal sinus rhythm Possible Anterolateral infarct , age undetermined Abnormal ECG Confirmed by HERB MITCHELL, PATI ([id number]), editor dictionary MITA HAN ([id number]) on 05/08/2022 10:54:38 AM Referred By: JOANN Confirmed By:CARLENE ESTEVEZ MD
--- NOTE | 2022-05-05 07:29 | RAD_ITS ---
STUDY: X-RAY CHEST REASON FOR EXAM: Female, 42 years old. Chest pain TECHNIQUE: Single AP portable view of the chest. COMPARISON: Comparison is made with prior study dated 10/30/2021. FINDINGS: EKG electrodes are seen. The lungs are clear and expanded. Scattered calcified granulomas. There is no demonstrated pleural abnormality. Normal size heart. Normal mediastinum and charlene. Normal visualized pulmonary arteries. Normal visualized aortic arch and descending thoracic aorta. Normal visualized thoracic spine. Normal visualized ribs, clavicles, and shoulders. There is no demonstrated abnormality of the visualized soft tissue structures of the upper abdomen. RAD/Chest 1 View (Portable) IMPRESSION: No acute abnormality is seen. Electronically Signed: Lupillo Mckeon MD at 8:29 EST ,
[2022-05-05] MEDS: Nitroglycerin SL (ED/IMG/CATH) 0.4 MG TABLET SL (07:44)
--- NOTE | 2022-05-05 07:45 | ED.VIS.CHEST ---
HPI History of Present Illness Chief Complaint: Chest Pain Informant: patient and spouse/S.O. Narrative Narrative: Presents here with spouse for evaluation of sudden onset chest pressure radiating to her right shoulder scapula 6:15 AM. Short of breath and sick to her stomach. She had viral upper respiratory illness approximate 3 weeks ago resolved. She took 3 baby aspirin's at home. She reports she had a STEMI 8 years ago with an LAD stent placed at [facility]. 2 weeks later subsequent right coronary stent was placed. She states a year and a half ago had a cath due to persistent ongoing symptoms had additional stent placed here. She is followed by Dr. Ma. She is a diabetic, hypertension hyperlipidemia. She states since her stent a year and a half ago had no symptoms until today. 2 months ago partial foot amputation at [facility]. Reports was doing fine. States had concerns of redness went to [facility] ED for evaluation referred by her surgeon. No antibiotics currently. Prior Similar Symptoms: Yes CVD Risk Factors: Positive for Hypertension, Diabetes and Hypercholesterolemia [facility] Medical History Anxiety and depression Atherosclerosis of coronary artery of [place] heart without angina pectoris Chronic pain Chronic systolic (congestive) heart failure Depression Diabetes mellitus type 1 Essential (primary) hypertension Hyperlipidemia Ischemic cardiomyopathy HERNANDEZ (nonalcoholic steatohepatitis) Non-smoker Old anterior wall myocardial infarction Sleep apnea Syncope Type 2 diabetes mellitus Home Medications sertraline 100 mg tablet 100 mg PO QHS depression/anxiety 11/25/15 [History Last Taken 05/04/22] gabapentin 300 mg capsule 300 mg PO DAILY NEUROPATHY 06/16/18 [History Last Taken 05/04/20] gabapentin 300 mg capsule 1,200 mg PO QHS NEUROPATHY 12/04/18 [History Last Taken 05/04/22] acyclovir 400 mg tablet 400 mg PO TID ANTIVIRAL 09/13/19 [History Last Taken 05/04/22] nitroglycerin 0.4 mg sublingual tablet 0.4 mg sublingual Q5M PRN Chest Pain #1 BOTTLE 05/04/20 [Rx Last Taken 05/04/20] promethazine 25 mg tablet 25 mg PO Q6H PRN nausea and vomiting #20 tabs 10/30/21 [Rx Last Taken 05/02/22] ranolazine 1,000 mg tablet,extended release,12 hr 1,000 mg PO BID ANGINA #180 tabs 04/18/22 [Rx Last Taken 05/04/22] albuterol sulfate 90 mcg/actuation aerosol inhaler (Ventolin HFA) 2 puff inhalation Q4H PRN Wheezing 05/05/22 [History Last Taken 04/21/22] aspirin 81 mg tablet,delayed release (April Low Dose Aspirin) 81 mg PO DAILY HEART HEALTH 05/05/22 [History Last Taken 05/05/22] atorvastatin 80 mg tablet 80 mg PO DAILY cholesterol 05/05/22 [History Last Taken 05/04/22] clopidogrel 75 mg tablet 75 mg PO DAILY heart 05/05/22 [History Last Taken 05/04/22] insulin aspart U-100 100 unit/mL (3 mL) subcutaneous pen (Novolog Flexpen U-100 Insulin aspart) 20 unit subcut TIDCM DIABETES 05/05/22 [History Last Taken 05/04/22] insulin aspart U-100 100 unit/mL (3 mL) subcutaneous pen (Novolog Flexpen U-100 Insulin aspart) See Protocol subcut UD 05/05/22 [History Last Taken Unknown] insulin glargine 100 unit/mL (3 mL) subcutaneous pen (Lantus Solostar U-100 Insulin) 36 unit subcut QHS DIABETES 05/05/22 [History Last Taken 05/04/22] magnesium oxide 400 mg (241.3 mg magnesium) tablet 400 mg PO BID SUPPLEMENT 05/05/22 [History Last Taken 05/04/22] ondansetron 4 mg disintegrating tablet 4 mg PO Q8H PRN Nausea 05/05/22 [History Last Taken 05/02/22] oxycodone-acetaminophen 5 mg-325 mg tablet (Percocet) 1 tab PO Q6H PRN Severe Pain (Scale Score 7-10) 05/05/22 [History Last Taken 05/03/22] semaglutide 3 mg tablet (Rybelsus) 3 mg PO DAILY DIABETES 05/05/22 [History Last Taken 05/04/22] Allergy/AdvReac Type Severity Reaction Status Date / Time perflutren [From [facility]] Allergy Severe Anaphylaxis Verified 05/05/22 07:18 Iodinated Contrast Media Allergy Hives Verified 05/05/22 07:18 [Iodinated Contrast Media - IV Dye] Penicillins Allergy Rash Verified 05/05/22 07:18 Sulfa (Sulfonamide Allergy Hives Verified 05/05/22 07:18 Antibiotics) Beta-Blockers AdvReac Low blood Verified 05/05/22 07:18 (Beta-Adrenergic Bloc pressure metformin AdvReac Upset Verified 05/05/22 07:18 Stomach nitroglycerin AdvReac drops HR Verified 05/05/22 07:18 ticagrelor [From Brilinta] AdvReac Bleeding Verified 05/05/22 07:18 Family History Father Cancer lung cancer Brother Diabetes Sister Diabetes Heart disease Hypertension High cholesterol Mother Heart disease High cholesterol Hypertension CVA (cerebral vascular accident) Grandmother Heart disease High cholesterol Hypertension Grandfather Heart disease High cholesterol Hypertension CVA (cerebral vascular accident) Surgical History History of coronary artery stent placement (09/29/20) History of left heart catheterization (05/05/20) History of lumbar fusion History of tubal ligation Social History Smoking Status: Never smoker alcohol intake: never substance use type: does not use ROS ROS ED Constitutional Constitutional ED: Denies chills, fever(s) or sweats Eyes Eyes: Denies change in vision ENT ENT ED: Denies dysphagia or sore throat Cardiovascular Cardiovascular: Reports chest pain; Denies leg edema, palpitations or racing heartbeat Respiratory/Chest Respiratory/Chest: Reports dyspnea; Denies cough or dyspnea on exertion Gastrointestinal Gastrointestinal: Reports nausea; Denies abdominal pain, diarrhea or vomiting Genitourinary Genitourinary ED: Denies dysuria, hematuria or urinary frequency Musculoskeletal Musculoskeletal: Denies back pain, extremity pain or neck pain Integumentary Denies rash or wounds Neurologic Neurologic: Denies headache(s), paresthesias or weakness EXAM Physical Exam Const Vital Signs: 05/05/22 07:18 05/05/22 07:44 05/05/22 08:00 Temperature 97 F L Temperature Source Temporal Pulse Rate 89 91 Respiratory Rate 18 Blood Pressure 142/86 H 131/85 H 127/83 H Blood Pressure Mean 104 97 Blood Pressure Source Monitor Blood Pressure Position Semi-Fowlers Blood Pressure Location Right Arm Pulse Ox 100 Oxygen Delivery Method Room Air Oxygen Flow Rate (L/min) 05/05/22 08:05 05/05/22 07:29 05/05/22 08:10 Temperature Temperature Source Pulse Rate Respiratory Rate Blood Pressure 123/82 H 127/81 H Blood Pressure Mean 95 96 Blood Pressure Source Monitor Monitor Blood Pressure Position Semi-Fowlers Semi-Fowlers Blood Pressure Location Right Arm Right Arm Pulse Ox 100 Oxygen Delivery Method Room Air Oxygen Flow Rate (L/min) 05/05/22 08:15 05/05/22 08:20 05/05/22 08:25 Temperature Temperature Source Pulse Rate Respiratory Rate Blood Pressure 114/84 H 116/76 112/71 Blood Pressure Mean 94 89 84 Blood Pressure Source Monitor Monitor Monitor Blood Pressure Position Semi-Fowlers Semi-Fowlers Semi-Fowlers Blood Pressure Location Right Arm Right Arm Right Arm Pulse Ox Oxygen Delivery Method Oxygen Flow Rate (L/min) 05/05/22 08:30 05/05/22 08:35 05/05/22 08:40 Temperature Temperature Source Pulse Rate Respiratory Rate Blood Pressure 114/70 118/72 103/70 Blood Pressure Mean 84 87 81 Blood Pressure Source Monitor Monitor Monitor Blood Pressure Position Semi-Fowlers Semi-Fowlers Semi-Fowlers Blood Pressure Location Right Arm Right Arm Right Arm Pulse Ox Oxygen Delivery Method Oxygen Flow Rate (L/min) 05/05/22 08:45 05/05/22 08:00 05/05/22 08:50 Temperature Temperature Source Pulse Rate Respiratory Rate Blood Pressure 118/78 125/79 H Blood Pressure Mean 91 94 Blood Pressure Source Monitor Monitor Blood Pressure Position Semi-Fowlers Semi-Fowlers Blood Pressure Location Right Arm Right Arm Pulse Ox Oxygen Delivery Method Nasal Cannula Oxygen Flow Rate (L/min) 2 05/05/22 08:55 05/05/22 09:00 05/05/22 09:05 Temperature Temperature Source Pulse Rate Respiratory Rate Blood Pressure 119/78 119/83 H 136/87 H Blood Pressure Mean 91 95 103 Blood Pressure Source Monitor Monitor Monitor Blood Pressure Position Semi-Fowlers Semi-Fowlers Semi-Fowlers Blood Pressure Location Right Arm Right Arm Right Arm Pulse Ox Oxygen Delivery Method Oxygen Flow Rate (L/min) 05/05/22 09:10 05/05/22 09:15 05/05/22 09:20 Temperature Temperature Source Pulse Rate Respiratory Rate Blood Pressure 128/89 H 121/80 H 126/80 H Blood Pressure Mean 102 93 95 Blood Pressure Source Monitor Monitor Monitor Blood Pressure Position Semi-Fowlers Semi-Fowlers Semi-Fowlers Blood Pressure Location Right Arm Right Arm Right Arm Pulse Ox Oxygen Delivery Method Oxygen Flow Rate (L/min) 05/05/22 09:25 05/05/22 09:30 05/05/22 09:45 Temperature Temperature Source Pulse Rate Respiratory Rate Blood Pressure 120/83 H 115/83 H 116/73 Blood Pressure Mean 95 93 87 Blood Pressure Source Monitor Monitor Monitor Blood Pressure Position Semi-Fowlers Semi-Fowlers Semi-Fowlers Blood Pressure Location Right Arm Right Arm Right Arm Pulse Ox Oxygen Delivery Method Oxygen Flow Rate (L/min) 05/05/22 09:35 05/05/22 09:40 05/05/22 10:47 Temperature 97.9 F Temperature Source Temporal Pulse Rate 84 Respiratory Rate 16 Blood Pressure 113/70 104/84 H 129/80 H Blood Pressure Mean 84 90 96 Blood Pressure Source Monitor Monitor Blood Pressure Position Semi-Fowlers Semi-Fowlers Blood Pressure Location Right Arm Right Arm Pulse Ox 97 Oxygen Delivery Method Room Air Oxygen Flow Rate (L/min) 05/05/22 10:00 05/05/22 10:00 05/05/22 10:15 Temperature Temperature Source Pulse Rate 81 Respiratory Rate 16 Blood Pressure 124/77 H 115/70 112/70 Blood Pressure Mean 92 85 84 Blood Pressure Source Monitor Monitor Blood Pressure Position Semi-Fowlers Semi-Fowlers Blood Pressure Location Right Arm Right Arm Pulse Ox 98 Oxygen Delivery Method Room Air Oxygen Flow Rate (L/min) 05/05/22 10:30 05/05/22 10:45 Temperature Temperature Source Pulse Rate Respiratory Rate Blood Pressure 111/66 127/80 H Blood Pressure Mean 81 95 Blood Pressure Source Monitor Monitor Blood Pressure Position Semi-Fowlers Semi-Fowlers Blood Pressure Location Right Arm Right Arm Pulse Ox Oxygen Delivery Method Oxygen Flow Rate (L/min) Positive well nourished and well developed Constitutional Narrative: Appears uncomfortable mild sweats on forehead. General Appearance ED: well developed HEENT Reports moist mucous membranes normocephalic and atraumatic Eyes PERRL, EOMs intact bilaterally and conjunctivae normal General Eye ED: Yes normal appearance of both eyes Neck no lymphadenopathy and supple General: Negative for tenderness Chest Wall Chest: Negative for tenderness Resp normal respiratory effort and normal air movement Effort and Inspection: symmetric chest movement; Negative for respiratory distress Cardio regular rate, regular rhythm and no murmurs Peripheral Pulses: pulses 2+ throughout GI normal to inspection, nondistended, normoactive bowel sounds and non-tender Palpation: Negative for guarding or rebound tenderness present Back/Spine no CVA tenderness and no thoracic nor lumbar tenderness Extremity normal to inspection Extremity Narrative: Right foot examination partial amputation healed wound, no openings no drainage. Nontender. General Extremety ED: Negative for edema or tenderness General Extremity: Negative for edema Neuro oriented x3 and no sensory deficits noted Sensorium / Orientation: awake and alert Skin no rashes or lesions noted and no wounds Heart Score History: Highly Suspicious ECG: Normal Age: </= 45 years Risk Factors: >/= 3 Risk Factors or History of CAD Troponin: </= Normal Limit Score: 4 MDM MDM MDM Narrative Medical decision making narrative: Patient presenting symptoms of chest tightness heaviness and sweaty with shortness of breath. Concerns for ACS symptoms with chest pain. Denies any tearing pains. For concerns of dissection at this point blood pressure stable. Laboratory studies were ordered and reviewed by myself. 0835: On nitro drip, states pressure mildly improved however still increased pain. We will add morphine. Initial troponin returning normal. Creatinine 0.77. Hemoglobin 12.6. Chest x-ray 1 view interpreted by myself and read by radiology negative for any acute process. Patient required increasing titration of nitro drip. Improved but still had discomfort. Second troponin returned normal at 7. We will with her history I spoke with optometry teacher Dr. Tomlinson agreed possible unstable angina he will take her to the [facility]. She was given 5000 units of IV heparin for preparations. I spoke with hospitalist Dr. Griffin for admission to PCU. Lab Data Attestation: I reviewed the patient's lab results. Labs: Laboratory Results - last 24 hr 05/05/22 05/05/22 05/05/22 07:26 07:26 07:26 WBC 6.5 RBC 4.20 Hgb 12.6 Hct 37.2 MCV 88.6 MCH 30.0 MCHC 33.9 RDW Std Deviation 41.6 RDW Coeff of [place] 12.7 Plt Count 282 MPV 9.6 Immature Gran % (Auto) 0.500 Neut % (Auto) 53.1 Lymph % (Auto) 32.3 [place] % (Auto) 9.0 Eos % (Auto) 4.3 Baso % (Auto) 0.8 Absolute Neuts (auto) 3.5 Absolute Lymphs (auto) 2.09 Nucleated RBC % 0 PT 11.3 L INR 0.9 APTT 25.7 Sodium 137 Potassium 3.6 Chloride 104 Carbon Dioxide 28.0 Anion Gap 5 BUN 11 Creatinine 0.77 Estim Creat Clear Calc 93.50 Est GFR (MDRD) Af Amer 107 Est GFR (MDRD) Non-Af 88 BUN/Creatinine Ratio 14.3 Glucose 356 H Calcium 9.1 Troponin I High Sens 8 Serum , Qual 05/05/22 05/05/22 07:26 09:56 WBC RBC Hgb Hct MCV MCH MCHC RDW Std Deviation RDW Coeff of [place] Plt Count MPV Immature Gran % (Auto) Neut % (Auto) Lymph % (Auto) [place] % (Auto) Eos % (Auto) Baso % (Auto) Absolute Neuts (auto) Absolute Lymphs (auto) Nucleated RBC % PT INR APTT Sodium Potassium Chloride Carbon Dioxide Anion Gap BUN Creatinine Estim Creat Clear Calc Est GFR (MDRD) Af Amer Est GFR (MDRD) Non-Af BUN/Creatinine Ratio Glucose Calcium Troponin I High Sens 7 Serum , Qual NEGATIVE Radiography Diagnostic Testing: Clinical Impression(s) from Imaging Studies Chest X-Ray 05/05/22 07:29 IMPRESSION: No acute abnormality is seen. Electronically Signed: Lupillo Mckeon MD at 8:29 EST , Chest CTA 05/05/22 13:19 IMPRESSION: Mild degree of increased markings at the lung bases suggestive of bibasilar atelectasis. Electronically Signed: Lupillo Mckeon MD at 14:09 EST , EKG Initial EKG: Attestation: I personally reviewed and interpreted this EKG as follows: Comments: Sinus rate of 86, no ST changes. Q waves on anterior leads. Critical Care Time Critical Care Time: Yes Critical care time (excluding procedures): 30-74 minutes, Discussing w/Patient &/or Family/Engineering Technical Specialist, Discussing w/Consultants, Arranging Admission or Transfer, Performing Direct Patient Care at Bedside and - (40 minutes) Discharge Plan Dx/Rx/DC Orders Clinical Impression: Unstable angina, Chest pain, History of diabetes mellitus Disposition Dis[facility] Discharge Date/Time: 05/05/22 11:05
[2022-05-05 07:47] LABS: Absolute Lymphocyte Count 2.09 X10^3/uL (0.83-4.51); Absolute Neutrophil Count 3.5 X10^3/uL (2.0-7.7); Basophil# 0.05 X10^3/uL; Basophil% 0.8 % (0-1); Eosinophil# 0.28 X10^3/uL; Eosinophils% 4.3 % (0-5); Hematocrit 37.2 % (37-47); Hemoglobin 12.6 g/dL (12.0-15.0); Lymphocyte # 2.09 X10^3/ul (0.83-4.51); Lymphocyte % 32.3 % (19-41); Mean Corp Hgb Conc 33.9 g/dL (32-36); Mean Corpuscular Volume 88.6 fL (81-99); Mean Platelet Vol. 9.6 fl (6.2-12.0); Monocyte# 0.58 X10^3/uL; NRBC Flagged by Analyzer 0 % (0-5); Neutrophil # 3.45 X10^3/uL (2.7-7.7); Neutrophil % 53.1 % (47-70); Platelet Count 282 K/mm3 (150-450); RBC Distribution Width CV 12.7 % (11.6-14.6); RBC Distribution Width SD 41.6 fl (35.1-43.9); White Blood Count 6.5 K/mm3 (4.4-11.0)
[2022-05-05] MEDS: 0.9% Normal Saline 1,000 ML 30 ML IV (07:51)
[2022-05-05] MEDS: Nitroglycerin Infusion 250 ML 3 MG CONT INF (08:00)
[2022-05-05 08:03] LABS: Anion Gap 5 (5-15); BUN 11 mg/dL (7-18); BUN/Creat Ratio 14.3 RATIO (10-20); Calcium,Total 9.1 mg/dL (8.5-10.1); Chloride 104 mmol/L (98-107); Creatinine, Serum 0.77 mg/dL (0.55-1.02); EST Glomerular Filtration Rate 88 mL/min (>60); Est Glom Filt Rate - Afr Amer 107 mL/min (>60); Glucose 356 mg/dL (74-106); Potassium 3.6 mmol/L (3.5-5.1); Sodium Level 137 mmol/L (136-145); Troponin-I HS (w/2H Reflex) 8 pg/mL (3.0-54.0)
[2022-05-05] MEDS: Morphine 4 MG/ML Syringe IV ×2 (08:43→09:09)
[2022-05-05 08:58] LABS: International Normalized Ratio 0.9; Prothrombin Time (Protime)PT. 11.3 SECONDS (11.7-14.9)
[2022-05-05 08:59] LABS: Partial Thromboplast Time 25.7 Seconds (24.1-36.2)
[2022-05-05 09:44] LABS: Reflex Troponin-HS? (from REC) Y
[2022-05-05 10:24] LABS: Troponin-I HS 7 pg/mL (3.0-54.0)
[2022-05-05 10:51] LABS: Internal QC Validated? YES +Cl - CLEAR BKGD; Pregnancy, Serum, hCG Quali. NEGATIVE Negative
[2022-05-05] MEDS: Heparin Injection (Vial) 5,000 UNIT/ML VIAL 5000 UNIT IV (10:55)
[2022-05-05] MEDS: Nitroglycerin Infusion 250 ML 120 MG CONT INF (11:02)
--- NOTE | 2022-05-05 13:14 | PCM.CONS.C ---
Assessment & Plan Assessment/Plan (1) Chest pain: PLAN: Angiogram revealed stable findings with patent stents. No culprit lesions could be identified for patient's rest angina. She does have dilatation of the ascending aorta on LV gram. Patient states that she was told she has arctic dilatation on a CAT scan done at an outside hospital. I think will be reasonable to check a CAT scan of her chest today to see if we can identify the etiology of her chest pain. She did receive Solu-Medrol and Benadryl prior to coronary angiography and even in the past this regimen was effective at controlling any allergic reaction that she has with IV contrast. She has not had any problems with the IV contrast which she received in the [facility] today which is less than 100 mL. HPI Consult Data Date of Consult: 05/05/22 HPI Narrative Reason for Consultation: Chest pain HPI Narrative: LATA STONE, is a 42 F who presents with chest pain that she describes as tightness radiating to the right arm. She states that it is similar to what she had prior to her PCI's in the past. She has history of STEMI treated with stent to the LAD apparently 8 years back and PCI to the RCA about 2 years ago. She was also noted to have dilatation of the ascending aorta at an outside hospital and was supposed to see Uyen Rhodes today in the office. Patient continued to have chest pain on 200 mcg of nitroglycerin and was brought to the [facility] for urgent cardiac catheterization which revealed stable angiographic findings with patent stents in the LAD and RCA. She does have 80% stenosis in small diagonal branches that are jailed by the LAD stent. This is unchanged from prior angiogram about 2 years back. She was noted to have dilated ascending aorta on the LV gram. LV gram revealed preserved EF. Patient currently is chest pain-free on nitroglycerin drip that we are titrating down. Review of systems: All systems reviewed. All else is negative except that in the HPI [facility] Medical History Anxiety and depression Atherosclerosis of coronary artery of [place] heart without angina pectoris Chronic pain Chronic systolic (congestive) heart failure Depression Diabetes mellitus type 1 Essential (primary) hypertension Hyperlipidemia Ischemic cardiomyopathy HERNANDEZ (nonalcoholic steatohepatitis) Non-smoker Old anterior wall myocardial infarction Sleep apnea Syncope Type 2 diabetes mellitus Home Medications sertraline 100 mg tablet 100 mg PO QHS depression/anxiety 07/28/16 [History Last Taken 05/04/22] gabapentin 300 mg capsule 300 mg PO DAILY NEUROPATHY 06/16/18 [History Last Taken 05/04/20] gabapentin 300 mg capsule 1,200 mg PO QHS NEUROPATHY 12/04/18 [History Last Taken 05/04/22] acyclovir 400 mg tablet 400 mg PO TID ANTIVIRAL 09/13/19 [History Last Taken 05/04/22] nitroglycerin 0.4 mg sublingual tablet 0.4 mg sublingual Q5M PRN Chest Pain #1 BOTTLE 05/04/20 [Rx Last Taken 05/04/20] promethazine 25 mg tablet 25 mg PO Q6H PRN nausea and vomiting #20 tabs 10/30/21 [Rx Last Taken 05/02/22] ranolazine 1,000 mg tablet,extended release,12 hr 1,000 mg PO BID ANGINA #180 tabs 04/18/22 [Rx Last Taken 05/04/22] albuterol sulfate 90 mcg/actuation aerosol inhaler (Ventolin HFA) 2 puff inhalation Q4H PRN Wheezing 05/05/22 [History Last Taken 04/21/22] aspirin 81 mg tablet,delayed release (April Low Dose Aspirin) 81 mg PO DAILY HEART HEALTH 05/05/22 [History Last Taken 05/05/22] atorvastatin 80 mg tablet 80 mg PO DAILY cholesterol 05/05/22 [History Last Taken 05/04/22] clopidogrel 75 mg tablet 75 mg PO DAILY heart 05/05/22 [History Last Taken 05/04/22] insulin aspart U-100 100 unit/mL (3 mL) subcutaneous pen (Novolog Flexpen U-100 Insulin aspart) 20 unit subcut TIDCM DIABETES 05/05/22 [History Last Taken 05/04/22] insulin aspart U-100 100 unit/mL (3 mL) subcutaneous pen (Novolog Flexpen U-100 Insulin aspart) See Protocol subcut UD 05/05/22 [History Last Taken Unknown] insulin glargine 100 unit/mL (3 mL) subcutaneous pen (Lantus Solostar U-100 Insulin) 36 unit subcut QHS DIABETES 05/05/22 [History Last Taken 05/04/22] magnesium oxide 400 mg (241.3 mg magnesium) tablet 400 mg PO BID SUPPLEMENT 05/05/22 [History Last Taken 05/04/22] ondansetron 4 mg disintegrating tablet 4 mg PO Q8H PRN Nausea 05/05/22 [History Last Taken 05/02/22] oxycodone-acetaminophen 5 mg-325 mg tablet (Percocet) 1 tab PO Q6H PRN Severe Pain (Scale Score 7-10) 05/05/22 [History Last Taken 05/03/22] semaglutide 3 mg tablet (Rybelsus) 3 mg PO DAILY DIABETES 05/05/22 [History Last Taken 05/04/22] Allergy/AdvReac Type Severity Reaction Status Date / Time perflutren [From [facility]] Allergy Severe Anaphylaxis Verified 05/05/22 07:18 Iodinated Contrast Media Allergy Hives Verified 05/05/22 07:18 [Iodinated Contrast Media - IV Dye] Penicillins Allergy Rash Verified 05/05/22 07:18 Sulfa (Sulfonamide Allergy Hives Verified 05/05/22 07:18 Antibiotics) Beta-Blockers AdvReac Low blood Verified 05/05/22 07:18 (Beta-Adrenergic Bloc pressure metformin AdvReac Upset Verified 05/05/22 07:18 Stomach nitroglycerin AdvReac drops HR Verified 05/05/22 07:18 ticagrelor [From Brilinta] AdvReac Bleeding Verified 05/05/22 07:18 Family History Father Cancer lung cancer Brother Diabetes Sister Diabetes Heart disease Hypertension High cholesterol Mother Heart disease High cholesterol Hypertension CVA (cerebral vascular accident) Grandmother Heart disease High cholesterol Hypertension Grandfather Heart disease High cholesterol Hypertension CVA (cerebral vascular accident) Surgical History History of coronary artery stent placement (09/29/20) History of left heart catheterization (05/05/20) History of lumbar fusion History of tubal ligation Social History Smoking Status: Never smoker alcohol intake: never substance use type: does not use Physical Exam Const alert and oriented x3 HEENT normocephalic Eyes no scleral icterus Resp normal respiratory effort Cardio regular rate and regular rhythm Risk Stratification Risk Stratification Applicable: No Charges/Coding Visit Charges Inpatient E&M: 13533 Init Hosp L2 Objective Data Vital Signs: Vital Signs Temp Pulse Resp BP Pulse Ox O2 Del Method O2 Flow Rate 97.9 F 84 16 129/80 H 97 Room Air 2 05/05/22 10:47 05/05/22 10:47 05/05/22 10:47 05/05/22 10:47 05/05/22 10:47 05/05/22 10:47 05/05/22 08:00 Oxygen Flow Rate (L/min) 2 Oxygen Delivery Method Room Air Weight: 214 lb 4.629 oz Body Mass Index (BMI) 33.5 Intake & Output: Intake and Output for Last 24 Hours 05/03/22 05/04/22 05/05/22 23:59 23:59 23:59 Intake Total 250.00 / 250.00 Balance 250.00 / 250.00 Lab / Micro Data Result Diagrams: 05/05/22 07:26 05/05/22 07:26 Labs: Laboratory Results - last 24 hr 05/05/22 07:26: WBC 6.5, RBC 4.20, Hgb 12.6, Hct 37.2, MCV 88.6, MCH 30.0, MCHC 33.9, RDW Std Deviation 41.6, RDW Coeff of [place] 12.7, Plt Count 282, MPV 9.6, Immature Gran % (Auto) 0.500, Neut % (Auto) 53.1, Lymph % (Auto) 32.3, [place] % (Auto) 9.0, Eos % (Auto) 4.3, Baso % (Auto) 0.8, Absolute Neuts (auto) 3.5, Absolute Lymphs (auto) 2.09, Nucleated RBC % 0 05/05/22 07:26: Sodium 137, Potassium 3.6, Chloride 104, Carbon Dioxide 28.0, Anion Gap 5, BUN 11, Creatinine 0.77, Estim Creat Clear Calc 93.50, Est GFR (MDRD) Af Amer 107, Est GFR (MDRD) Non-Af 88, BUN/Creatinine Ratio 14.3, Glucose 356 H, Calcium 9.1, Troponin I High Sens 8 05/05/22 07:26: PT 11.3 L, INR 0.9, APTT 25.7 05/05/22 07:26: Serum , Qual NEGATIVE 05/05/22 09:56: Troponin I High Sens 7 Cardiology Labs/Tests 05/05/22 07:26: WBC 6.5, RBC 4.20, Hgb 12.6, Hct 37.2, MCV 88.6, MCH 30.0, MCHC 33.9, Plt Count 282, MPV 9.6, Immature Gran % (Auto) 0.500, Neut % (Auto) 53.1, Lymph % (Auto) 32.3, [place] % (Auto) 9.0, Eos % (Auto) 4.3, Baso % (Auto) 0.8, Absolute Neuts (auto) 3.5, Nucleated RBC % 0 05/05/22 07:26: Sodium 137, Potassium 3.6, Chloride 104, Carbon Dioxide 28.0, Anion Gap 5, BUN 11, Creatinine 0.77, Est GFR (MDRD) Af Amer 107, Est GFR (MDRD) Non-Af 88, BUN/Creatinine Ratio 14.3, Glucose 356 H, Calcium 9.1 05/05/22 07:26: PT 11.3 L, INR 0.9, APTT 25.7 Rhythm: EKG: ECHO: Stress Test: Cardiac Cath: PCI: CT Surgery: Holter monitor: EPS: PPM: CXR: Chest CT Scan: Radiography Diagnostic Testing: Radiology Impression Chest X-Ray 05/05/22 07:29 IMPRESSION: No acute abnormality is seen. Electronically Signed: Lupillo Mckeon MD at 8:29 EST ,
--- NOTE | 2022-05-05 13:19 | CT_ITS ---
STUDY: CTA CHEST REASON FOR EXAM: Female, 42 years old. Chest pain, ascending aorta dilatation RADIATION DOSAGE (If Supplied By Facility): CTDIvol = ( 18.25 ) mGy, DLP = ( 488.11 ) mGycm TECHNIQUE: The examination was performed with the intravenous administration of IV 100mL Isovue-370. Post-processing of the angiographic images was performed, with multiplanar reformation and 3D reconstruction. Individualized dose optimization techniques were used for this CT. COMPARISON: None. FINDINGS: Normal enhancement of the main pulmonary artery and right and left pulmonary arteries. Normal enhancement of the bilateral peripheral pulmonary arteries. There is no demonstrated pulmonary embolism. Normal thoracic aorta and visualized great vessels. There is no demonstrated aortic dissection. There are calcifications of the coronary arteries. Normal mediastinum. Normal hilar regions. Normal visualized trachea and bronchi. The lungs are well expanded. Mild increased linear markings at the lung bases suggestive of a bibasilar atelectasis. Normal pleura. Normal chest wall structures. Normal osseous structures. Normal visualized upper abdomen. CT/CTA Chest W/WO Contrast IMPRESSION: Mild degree of increased markings at the lung bases suggestive of bibasilar atelectasis. Electronically Signed: Lupillo Mckeon MD at 14:09 EST ,
--- NOTE | 2022-05-07 15:20 | CL.D_ITS ---
Patient Name: LATA STONE Study Date: 05/05/2022 Performing: Ann Tomlinson MD Ht: 67 inches 170.18 cm : 1980 Wt: 214.6 lbs 97.2 kg Age: 42 Gender: female BSA: 2.08 PROCEDURE(S) PERFORMED DC01-(21712)LHC/COR/LV CLINICAL PROFILE AND INDICATIONS Indications: Suspected CAD, unstable angina Heart Failure: None CAD Presentations: Unstable angina. CONCLUSIONS Angiography findings similar to final post PCI images from last time. Patent stents. No culprit noted for patient's CP. Preserved EF, No significant or MR. Mild dilatation of ascending aorta cannot be excluded RECOMMENDATIONS DESCRIPTION OF PROCEDURE The patient arrived to the procedure lab. The risks and benefits of the procedure as well as a full description of our services here and current unavailability of surgical backup were fully explained to the patient and/or their significant other prior to the catheterization. The Timeout was completed, verifying the correct patient and procedure. The patient's procedural site was prepped and draped in the usual fashion. Local anesthetic was given subcutaneously to right groin region with Lidocaine 2%. Using a modified Seldinger technique, arterial access was obtained via the right femoral artery, with Micropuncture set, arterial access was obtained via the right femoral artery, a 6Fr sheath was inserted. Left Coronary Artery selective angiography was performed in multiple views using a 5 Fr. JL4 catheter. Right Coronary Artery selective angiography was then performed in multiple views using a 5 Fr. JR 4 catheter. Left Ventriculography was performed in CABRERA projection using a 5 Fr. Pigtail catheter. LV to AO pullback pressures were then recorded.Contrast was injected through the sheath and the Right Iliac and Femoral artery were assessed for possible closure device.The arterial sheath was pulled and a Perclose closure device was deployed for hemostasis CORONARY ANGIOGRAPHY DOMINANCE: Right Dominant LEFT HEART ASSESSMENT Left Ventricular Ejection Fraction: by LV Gram 55-60 % Normal LV wall motion LEFT MAIN: Mild luminal irregularities LEFT ANTERIOR DESCENDING ARTERY: Mild luminal irregularities, Previously placed stent is patent CIRCUMFLEX ARTERY: PROX CIRC: 40 % Stenosis RIGHT CORONARY ARTERY: Mild luminal irregularities Previously placed stent is patent VALVE FINDINGS: No Aortic Valve Stenosis No Mitral Insufficiency AORTIC ROOT: Ascending aorta appears to be mildly dilated COMPLICATIONS No Complications PROCEDURE MEDICATIONS Fentanyl 50 mcg IV Versed 1 mg IV Versed 1 mg IV Fentanyl 25 mcg IV Oxygen: 2 L/min via nasal cannula Oxygen: 4 L/min via nasal cannula Benadryl 25 mg IV @ 05/05/2022 12:04:59 12:31:21 Plavix 25 mg PO 05/05/2022 12:04:41 Solu-medrol 125 mg IV 05/05/2022 12:04:59 SUMMARY OF HEMODYNAMIC DATA Time AIR REST ECG 12:06:51 AO 120/48 (72) SA 12:29:05 LV 122/-1, 17 12:37:18 LV 125/-4, 17 12:37:24 LV 126/-1, 16 12:38:07 LV 117/2, 19 12:38:13 LVp 116/65, 70 12:38:19 AOp 120/72 (95) 12:38:24 Signed By Ann Tomlinson MD On 05/07/2022 15:19:29 Ann Tomlinson MD
== END 2022-05-05 11:05 | disposition home or self-care (01) ==
PROVIDERS: Specialist; Emergency Provider Emergency Medicine; PCP Family Medicine; Visit Provider Emergency Medicine
DX: R07.89 Other chest pain (principal); I11.0 Hypertensive heart disease with heart failure; I50.22 Chronic systolic (congestive) heart failure; I20.0 Unstable angina; E11.9 Type 2 diabetes mellitus without complications; G89.29 Other chronic pain; E78.5 Hyperlipidemia, unspecified; Z82.3 Family history of stroke; I25.10 Atherosclerotic heart disease of native coronary artery without angina pectoris; I25.5 Ischemic cardiomyopathy; E78.00 Pure hypercholesterolemia, unspecified; Z79.02 Long term (current) use of antithrombotics/antiplatelets; Z83.3 Family history of diabetes mellitus; Z79.82 Long term (current) use of aspirin; I25.2 Old myocardial infarction
CPT/HCPCS: 71045; 71275; 80048; 84484; 84703; 85025; 85610; 85730; 93005; 93458; 99152; 99153; 99285; J7030; J7040; Q9967; C1760; C1769; C1894

== ENCOUNTER 2023-08-20 13:01 | Emergency (ER) | payer MEDICARE, MEDICAID, SELFPAY ==
[2023-08-20 13:02] VITALS: BP 123/80; PULSE 89; RESP 16; TEMP 36.4; O2SAT 99; BMI 30.8
--- NOTE | 2023-08-20 13:18 | RAD_ITS ---
EXAM: XR CHEST, 1 VIEW CLINICAL INDICATION: chest pain TECHNIQUE: Frontal view of the chest. COMPARISON: No relevant prior studies available. FINDINGS: LUNGS AND PLEURAL SPACES: Normal. No consolidation or edema. No pneumothorax. No effusion. HEART: Normal heart size. MEDIASTINUM: No mediastinal or hilar mass. BONES/JOINTS: No acute abnormality. RAD/Chest 1 View (Portable) IMPRESSION: No acute cardiopulmonary disease. Electronically Signed: Royce Fields MD at 13:53 EDT ,
--- NOTE | 2023-08-20 13:18 | EKG12_ITS ---
Test Reason : CP Blood Pressure : / mmHG Vent. Rate : 091 BPM Atrial Rate : 091 BPM P-R Int : 158 ms QRS Dur : 086 ms QT Int : 374 ms P-R-T Axes : 050 001 061 degrees QTc Int : 460 ms Normal sinus rhythm Anterior infarct , age undetermined Abnormal ECG Confirmed by HERB MITCHELL, PATI ([id number]), online editor MITA HAN ([id number]) on 08/27/2023 1:22:22 PM Referred By: WILFREDO/RU Confirmed By:CARLENE ESTEVEZ MD
--- NOTE | 2023-08-20 13:24 | ED.VIS.CHEST ---
HPI History of Present Illness Chief Complaint: Chest Pain Narrative Narrative: Patient is a 43-year-old female with history of ACS, AK, CAD, hypertension hyperlipidemia, diabetes, who presents to the emergency department sudden onset of midsternal chest pain that radiates to the right arm as well as the left jaw. Patient last seen cardiology in July 2022. Patient is a total of 3 stents. Patient is currently on Plavix, and states that she has not had chest pain for the last 8 months. Patient did cancel her appointment this last month. Patient denies any recent travel, she states that when she called the ambulance, they did give her 4 baby aspirin as well as 1 nitro with no relief of her pain. Patient states the pain is sharp and stabbing. PFSH [facility] Medical History Anxiety and depression Atherosclerosis of coronary artery of [place] heart without angina pectoris Chronic pain Chronic systolic (congestive) heart failure Depression Diabetes mellitus type 1 Essential (primary) hypertension Hyperlipidemia Ischemic cardiomyopathy HERNANDEZ (nonalcoholic steatohepatitis) Non-smoker Old anterior wall myocardial infarction Sleep apnea Syncope Type 2 diabetes mellitus Home Medications sertraline 100 mg tablet 100 mg PO QHS depression/anxiety 11/25/15 [History Last Taken 05/04/22] gabapentin 300 mg capsule 1,200 mg PO QHS NEUROPATHY 12/04/18 [History Last Taken 05/04/22] acyclovir 400 mg tablet 400 mg PO TID ANTIVIRAL 09/13/19 [History Last Taken 05/04/22] nitroglycerin 0.4 mg sublingual tablet 0.4 mg sublingual Q5M PRN Chest Pain #1 BOTTLE 05/04/20 [Rx Last Taken 05/04/20] promethazine 25 mg tablet 25 mg PO Q6H PRN nausea and vomiting #20 tabs 10/30/21 [Rx Last Taken 05/02/22] albuterol sulfate 90 mcg/actuation aerosol inhaler (Ventolin HFA) 2 puff inhalation Q4H PRN Wheezing 05/05/22 [History Last Taken 04/21/22] insulin aspart U-100 100 unit/mL (3 mL) subcutaneous pen (Novolog FlexPen U-100 Insulin aspart) 20 unit subcut TIDCM DIABETES 05/05/22 [History Last Taken 05/04/22] insulin aspart U-100 100 unit/mL (3 mL) subcutaneous pen (Novolog FlexPen U-100 Insulin aspart) See Protocol subcut UD 05/05/22 [History Last Taken Unknown] insulin glargine 100 unit/mL (3 mL) subcutaneous pen (Lantus Solostar U-100 Insulin) 36 unit subcut QHS DIABETES 05/05/22 [History Last Taken 05/04/22] magnesium oxide 400 mg (241.3 mg magnesium) tablet 400 mg PO BID SUPPLEMENT 05/05/22 [History Last Taken 05/04/22] ondansetron 4 mg disintegrating tablet 4 mg PO Q8H PRN Nausea 05/05/22 [History Last Taken 05/02/22] aspirin 81 mg tablet,delayed release (April Low Dose Aspirin) 81 mg PO DAILY HEART HEALTH #90 tabs 08/01/22 [Rx Last Taken Unknown] atorvastatin 80 mg tablet 80 mg PO DAILY cholesterol #90 tabs 08/01/22 [Rx Last Taken Unknown] clopidogrel 75 mg tablet 75 mg PO DAILY heart #90 tabs 08/01/22 [Rx Last Taken Unknown] diphenhydramine HCl 50 mg capsule 50 mg PO ONCE #1 cap 08/01/22 [Rx Last Taken Unknown] gabapentin 300 mg capsule 1,200 mg PO DAILY NEUROPATHY 08/01/22 [History Last Taken Unknown] pramipexole 0.25 mg tablet (Mirapex) 0.25 mg PO QHS 08/01/22 [History Last Taken Unknown] prednisone 50 mg tablet 50 mg PO .COMPLEX #3 tabs 08/01/22 [Rx Last Taken Unknown] ranolazine 1,000 mg tablet,extended release,12 hr 1,000 mg PO BID ANGINA #180 tabs 08/01/22 [Rx Last Taken Unknown] Allergy/AdvReac Type Severity Reaction Status Date / Time perflutren [From DefinCantimer] Allergy Severe Anaphylaxis Verified 08/20/23 13:07 Iodinated Contrast Media Allergy Hives Verified 08/20/23 13:07 [Iodinated Contrast Media - IV Dye] Penicillins Allergy Rash Verified 08/01/22 14:34 Sulfa (Sulfonamide Allergy Hives Verified 08/20/23 13:07 Antibiotics) Beta-Blockers AdvReac Low blood Verified 08/20/23 13:07 (Beta-Adrenergic Bloc pressure metformin AdvReac Upset Verified 08/20/23 13:07 Stomach nitroglycerin AdvReac drops HR Verified 08/20/23 13:07 ticagrelor [From Brilinta] AdvReac Bleeding Verified 08/20/23 13:07 Family History Father Cancer lung cancer Brother Diabetes Sister Diabetes Heart disease Hypertension High cholesterol Mother Heart disease High cholesterol Hypertension CVA (cerebral vascular accident) Grandmother Heart disease High cholesterol Hypertension Grandfather Heart disease High cholesterol Hypertension CVA (cerebral vascular accident) Surgical History History of coronary artery stent placement (09/29/20) History of left heart catheterization (05/05/20) History of lumbar fusion History of tubal ligation Social History Smoking Status: Never smoker alcohol intake: never substance use type: does not use ROS ROS ED ROS Narrative Constitutional: Negative for fever, chills, weight loss, weakness Eyes: Negative for vision loss, vision change, double vision ENT: Negative for any sore throat, ear pain, congestion Cardiovascular: Negative for any tightness, palpitations. Positive for chest pain Respiratory: Negative for any cough, sputum production, hemoptysis, dyspnea, dyspnea on exertion, orthopnea Gastrointestinal: Negative for any abdominal pain, nausea, vomiting, diarrhea, constipation, blood in stool, blood in vomit : Negative for any urinary frequency, dysuria, retention, blood in urine Muscle skeletal: Negative for any neck pain, back pain Neurological: Negative for any headache, syncope, dizziness Skin: Negative for any rashes, itching, abrasions, lacerations Psychiatric: Negative for any depression, anxiety, stress, suicidal ideation, homicidal ideation Hematologic: Negative for any excessive bruising, easy bleeding EXAM Physical Exam Narrative Exam Narrative: Vital signs reviewed. Patient appears to be in mild discomfort, patient states the pain is significant to her chest that goes to her left jaw as well as her right arm. HEET: Head normocephalic atraumatic, TMs clear bilaterally. Posterior pharynx is clear, moist mucous membranes. Nares clear bilaterally. Neck: Supple with no lymphadenopathy or tenderness. No signs of meningismus. Cardiac: Regular rate and rhythm no murmurs gallops or rubs, equal peripheral pulses bilaterally. Respiratory: Lungs clear to auscultation bilaterally. No chest tenderness. Abdomen: Soft, nontender, nondistended. No abdominal bruit or pulsatile masses. No hepatosplenomegaly Extremities: No peripheral edema, no signs of gross trauma or deformity. Active full range of motion of all extremities. Neuro: Cranial nerves II through XII intact, no focal neurological deficits. Skin: Clean dry and intact with no rash, purpura, petechiae, vesicles or pustules. Backs/flank: No CVA tenderness, no midline spinal tenderness, no deformity. Psych: Normal mood and affect. No SI, HI or acute psychosis. Const Vital Signs: 08/20/23 13:02 08/20/23 13:33 08/20/23 14:01 Temperature 97.5 F L Temperature Source Oral Pulse Rate 89 84 Respiratory Rate 16 17 Blood Pressure 123/80 H 122/77 H Blood Pressure Mean 94 92 Pulse Ox 99 98 97 Oxygen Delivery Method Room Air Room Air Room Air 08/20/23 15:00 08/20/23 16:00 Temperature Temperature Source Pulse Rate 82 79 Respiratory Rate 24 H 20 H Blood Pressure 125/83 H 125/86 H Blood Pressure Mean 97 99 Pulse Ox 97 98 Oxygen Delivery Method Room Air Positive well nourished and obese Nutritional Appearance: obese MDM MDM Lab Data Labs: Laboratory Results - last 24 hr 08/20/23 08/20/23 08/20/23 13:31 14:51 15:37 WBC 6.4 RBC 4.27 Hgb 12.7 Hct 36.9 L MCV 86.4 MCH 29.7 MCHC 34.4 RDW Std Deviation 38.5 RDW Coeff of [place] 12.2 Plt Count 232 MPV 10.1 Immature Gran % (Auto) 0.200 Neut % (Auto) 54.8 Lymph % (Auto) 34.4 Sac % (Auto) 7.8 Eos % (Auto) 2.2 Baso % (Auto) 0.6 Absolute Neuts (auto) 3.5 Absolute Lymphs (auto) 2.20 Nucleated RBC % 0 Sodium 133 L Potassium 3.8 Chloride 104 Carbon Dioxide 21.0 Anion Gap 8 BUN 18 Creatinine 0.81 Estim Creat Clear Calc 103.81 Est GFR (MDRD) Af Amer 99 Est GFR (MDRD) Non-Af 82 BUN/Creatinine Ratio 22.2 H Glucose 521 H* Calcium 9.2 Troponin I High Sens 4 3 B-Natriuretic Peptide 8.4 TSH 2.04 POC Glucose 369 H Radiography Diagnostic Testing: Clinical Impression(s) from Imaging Studies Chest X-Ray 08/20/23 13:18 IMPRESSION: No acute cardiopulmonary disease. Electronically Signed: Royce Fields MD at 13:53 EDT Reading Location ID and State: [address] [place] [address] Tel , Service support , Treatment and Re-Evaluation :: Differential diagnosis includes however is not limited to: ACS, AK, PE, aortic dissection, unstable angina Patient appears to be in mild discomfort secondary to chest pain. Presenting to the emerged department with chest pain that began at noon. EKG was unremarkable, patient was given 1 nitro, 4 baby aspirin via squad with no relief. Patient received full cardiac workup including 2 troponins, patient was given IV morphine, Zofran for discomfort. Patient will be reevaluated. All radiologic examinations were read, reviewed by the emergency department attending. From these reads, a plan of care will be put in place. Patient's CBC was unremarkable, patient's chemistries were unremarkable, patient's blood sugar was 521, I did give the patient IV fluids, I spoke with the patient she did not take her insulin like she normally does. Patient's troponin was 4 which is negative, repeat was 3, TSH was unremarkable BNP was unremarkable. EKG was unremarkable. At this time, there is no evidence of any ACS or AK. Patient has no evidence of any cardiopulmonary process on the chest x-ray interpreted the ER physician. Did reach out to cardiology, the patient will be able to follow-up outpatient due to the 2 negative troponins. I spoke with the patient, she be given a Percocet before discharge. She instructed to follow-up outpatient. She was given return precautions. Patient stable for discharge. Discharge Plan Triage Chief Complaint: Chest Pain ED Midlevel Provider: Teodoro Tyson ED Provider: Felisha Lima Dx/Rx/DC Orders Clinical Impression: Chest pain Instructions: ED Chest Pain, Uncertain Cause Prescriptions: No Action pramipexole [Mirapex] 0.25 mg tablet 0.25 mg PO QHS aspirin [Aprli Low Dose Aspirin] 81 mg tablet,delayed release (DR/EC) 81 mg PO DAILY Qty: 90 3RF atorvastatin 80 mg tablet 80 mg PO DAILY Qty: 90 3RF clopidogrel 75 mg tablet 75 mg PO DAILY Qty: 90 3RF ranolazine 1,000 mg tablet extended release 12 hr 1,000 mg PO BID Qty: 180 3RF prednisone 50 mg tablet 50 mg PO .COMPLEX Qty: 3 0RF Rx Instructions: take one at 13 hours, 7 hours and 1 hour prior to contrast administration diphenhydramine HCl 50 mg capsule 50 mg PO ONCE Qty: 1 0RF Rx Instructions: Take one hour prior to contrast administration. sertraline 100 MG tablet 100 mg PO QHS Patient Comments: depression gabapentin 300 mg capsule 1,200 mg PO DAILY gabapentin 300 MG capsule 1,200 mg PO QHS acyclovir 400 MG tablet 400 mg PO TID promethazine 25 mg tablet 25 mg PO Q6H PRN (Reason: nausea and vomiting) Qty: 20 0RF insulin aspart U-100 [Novolog FlexPen U-100 Insulin] 100 unit/mL (3 mL) insulin pen 20 unit SUBCUT TIDCM insulin aspart U-100 [Novolog FlexPen U-100 Insulin] 100 unit/mL (3 mL) insulin pen See Protocol SUBCUT UD Protocol: 6. Sliding Scale Insulin Custom Condition: mg/dl range Dose/Route: Number of Units Condition: 150-200 Dose/Route: 2 Condition: 201-250 Dose/Route: 4 Condition: 251-300 Dose/Route: 6 Condition: 301-350 Dose/Route: 8 Condition: 350> Instruction: CALL MD Protocol Text: Custom Sliding Scale insulin glargine [Lantus Solostar U-100 Insulin] 100 unit/mL (3 mL) Insulin Pen 36 unit SUBCUT QHS magnesium oxide 400 mg (241.3 mg magnesium) tablet 400 mg PO BID albuterol sulfate [Ventolin HFA] 1 INHALER HFA aerosol inhaler 2 puff inhalation Q4H PRN (Reason: Wheezing) ondansetron 4 MG tablet,disintegrating 4 mg PO Q8H PRN (Reason: Nausea) nitroglycerin 0.4 mg tablet, sublingual 0.4 mg SUBLINGUAL Q5M PRN (Reason: Chest Pain) Qty: 1 0RF Patient Comments: Primary Care Provider: Jonathan Delcid Referrals: Jonathna Delcid MD [Primary Care Provider] - Activity Restrictions/Additional Instructions: You need to follow-up with cardiology, make sure that you tell them that you are in the emergency department. Return for any worsening symptoms. Disposition Disposition: Home, Self Care
[2023-08-20] MEDS: 0.9% Normal Saline (1000mL) 1,000 ML 1000 ML IV (13:28)
[2023-08-20] MEDS: Ondansetron 4 MG/2 ML Vial IV (13:28)
[2023-08-20] MEDS: Morphine 4 MG/ML Syringe IV (13:28)
[2023-08-20 13:33] VITALS: O2SAT 98
[2023-08-20 13:40] LABS: Absolute Neutrophil Count 3.5 X10^3/uL (2.0-7.7); Basophil# 0.04 X10^3/uL; Basophil% 0.6 % (0-1); Eosinophil# 0.14 X10^3/uL; Eosinophils% 2.2 % (0-5); Hematocrit 36.9 % (37-47); Hemoglobin 12.7 g/dL (12.0-15.0); Lymphocyte % 34.4 % (19-41); Mean Corp Hgb Conc 34.4 g/dL (32-36); Mean Corpuscular Hgb 29.7 pg (27.0-32.0); Mean Corpuscular Volume 86.4 fL (81-99); Mean Platelet Vol. 10.1 fl (6.2-12.0); Monocyte% 7.8 % (0-10); NRBC Flagged by Analyzer 0 % (0-5); Neutrophil # 3.51 X10^3/uL (2.7-7.7); Neutrophil % 54.8 % (47-70); Platelet Count 232 K/mm3 (150-450); RBC Distribution Width CV 12.2 % (11.6-14.6); RBC Distribution Width SD 38.5 fl (35.1-43.9); Red Blood Count 4.27 M/mm3 (4.2-5.4); White Blood Count 6.4 K/mm3 (4.4-11.0)
[2023-08-20 14:01] VITALS: BP 122/77; PULSE 84; RESP 17; O2SAT 97
[2023-08-20 14:04] LABS: BNP,B-Type NATRIURETIC PEPTIDE 8.4 pg/mL (0-100)
[2023-08-20 14:09] LABS: Anion Gap 8 (5-15); BUN 18 mg/dL (7-18); BUN/Creat Ratio 22.2 RATIO (10-20); Calcium,Total 9.2 mg/dL (8.5-10.1); Chloride 104 mmol/L (98-107); Creatinine, Serum 0.81 mg/dL (0.55-1.02); EST Glomerular Filtration Rate 82 mL/min (>60); Est Glom Filt Rate - Afr Amer 99 mL/min (>60); Estimated Creatinine Clearance 103.81 ml/min; Glucose 521 mg/dL (74-106); Potassium 3.8 mmol/L (3.5-5.1); Sodium Level 133 mmol/L (136-145); Thyroid Stim Hormone (TSH) 2.04 uIU/mL (0.358-3.74); Troponin-I HS (w/2H Reflex) 4 pg/mL (3.0-54.0)
[2023-08-20 15:00] VITALS: BP 125/83; PULSE 82; RESP 24; O2SAT 97
[2023-08-20 15:08] LABS: Bedside Glucose 369 mg/dL (74-106)
[2023-08-20 15:34] LABS: Reflex Troponin-HS? (from REC) Y
[2023-08-20 16:00] VITALS: BP 125/86; PULSE 79; RESP 20; O2SAT 98
[2023-08-20 16:16] LABS: Troponin-I HS 3 pg/mL (3.0-54.0)
[2023-08-20 16:41] VITALS: BP 118/83; PULSE 78; RESP 16; TEMP 36.9; O2SAT 100
[2023-08-20] MEDS: Oxycodone/Apap 5/325 Tablet PO (16:41)
== END 2023-08-20 16:44 | disposition home or self-care (01) ==
PROVIDERS: Nurse Practitioner; Emergency Provider Emergency Medicine; PCP Family Medicine; Visit Provider Emergency Medicine
DX: R07.9 Chest pain, unspecified (principal); I11.0 Hypertensive heart disease with heart failure; I50.22 Chronic systolic (congestive) heart failure; E11.9 Type 2 diabetes mellitus without complications; Z79.4 Long term (current) use of insulin; I25.10 Atherosclerotic heart disease of native coronary artery without angina pectoris; I25.2 Old myocardial infarction; Z95.5 Presence of coronary angioplasty implant and graft; E78.5 Hyperlipidemia, unspecified; Z79.02 Long term (current) use of antithrombotics/antiplatelets; F41.8 Other specified anxiety disorders; Z79.899 Other long term (current) drug therapy; Z79.82 Long term (current) use of aspirin; Z98.51 Tubal ligation status
CPT/HCPCS: 71045; 80048; 82962; 83880; 84443; 84484; 85025; 93005; 96361; 96374; 96375; 99284; J7030; A4216; J2405

== ENCOUNTER → 2023-10-22 | Outpatient (CLI) | payer MEDICARE, SELFPAY ==
[2023-10-22 14:36] LABS: AST(SGOT) 13 U/L (15-37); Alanine Aminotransfer ALT/SGPT 22 U/L (13-56); Albumin, Serum 3.8 g/dL (3.2-5.0); Alkaline Phosphatase 101 U/L (45-117); Bilirubin, Direct 0.14 mg/dL (0.00-0.30); Cholesterol 173 mg/dL (200); Globulin 3.6 g/dL (2.2-4.2); High Density Lipoprotein 48 mg/dL; Protein, Total 7.4 g/dL (6.4-8.2); Triglycerides 82 mg/dL; Very Low Density Lipoprotein 16 mg/dL (5-40)
== END | disposition home or self-care (01) ==
PROVIDERS: PCP Family Medicine; Referring Provider Nurse Practitioner Gerontology; Visit Provider Nurse Practitioner Gerontology
DX: E78.5 Hyperlipidemia, unspecified (principal)
CPT/HCPCS: 36415; 80061; 80076

== ENCOUNTER → 2025-02-10 | Outpatient (CLI) | payer MEDICARE, SELFPAY ==
--- NOTE | 2025-02-10 11:22 | CDU_ITS ---
Reason For Study Reason For Study: Sudden vision loss right eye Rt. Velocities/BP Lt. Velocities/BP Prox CCA 55.1/14.5 cm/sec. Prox CCA 68.5/17.9 cm/sec. Mid CCA 68.3/19.2 cm/sec. Mid CCA 65.2/20.1 cm/sec. Dist CCA 57/20.1 cm/sec. Dist CCA 57.5/16.8 cm/sec. Prox ICA 53.2/22 cm/sec. Prox ICA 57.5/21.2 cm/sec. Mid ICA 105.8/43.2 cm/sec. Mid ICA 96/36.6 cm/sec. Dist ICA 98.1/35.5 cm/sec. Dist ICA 98.6/34.8 cm/sec. Rt. ICA/CCA = 1.55. Lt. ICA/CCA = 1.51. Prox ECA 83.4/7.8 cm/sec. Prox ECA 76.2/9.1 cm/sec. Rt. Vert. 45.4/16.8 cm/sec. Lt. Vert. 44.7/16.3 cm/sec. Right Extracranial There is intimal thickening but no significant atherosclerotic plaque noted in the right common carotid artery. There is homogeneous, smooth atherosclerotic plaque noted in the right internal carotid artery. There is intimal thickening but no significant atherosclerotic plaque noted in the right external carotid artery. Antegrade flow is noted in the right vertebral artery. Left Extracranial There is intimal thickening but no significant atherosclerotic plaque noted in the left common carotid artery. There is intimal thickening but no significant atherosclerotic plaque noted in the left internal carotid artery. There is intimal thickening but no significant atherosclerotic plaque noted in the left external carotid artery. Antegrade flow is noted in the left vertebral artery. Procedure This is a Carotid Duplex examination using B-mode, color flow and specral Doppler. Carotid Duplex 59907. Exam performed in department. VL/Carotid Duplex Ultrasound Interpretation Summary Mild (<50%) stenosis right extracranial internal carotid. Normal left extracranial internal carotid. Patent and antegrade vertebrals bilaterally. Ordering Physician: Yong Ma Referring Physician: Jonathan Delcid Performed By: Sandy Lindsay RVT
== END | disposition home or self-care (01) ==
LOC: CVS 11:21
PROVIDERS: PCP Family Medicine; Referring Provider Internal Medicine Cardiovascular Disease; Visit Provider Internal Medicine Cardiovascular Disease
DX: H53.131 Sudden visual loss, right eye (principal)
CPT/HCPCS: 93880

== ENCOUNTER 2025-04-26 08:14 | Emergency (ER) | payer MEDICARE, SELFPAY ==
[2025-04-26 08:15] VITALS: BP 120/71; PULSE 82; RESP 16; TEMP 36.4; O2SAT 100; BMI 29.0
--- NOTE | 2025-04-26 08:29 | EKG12_ITS ---
Test Reason : CHEST TIGHTNESS Blood Pressure : */* mmHG Vent. Rate : 75 BPM Atrial Rate : 75 BPM P-R Int : 184 ms QRS Dur : 88 ms QT Int : 382 ms P-R-T Axes : 62 -17 59 degrees QTcB Int : 426 ms Normal sinus rhythm Anteroseptal infarct , age undetermined Abnormal ECG Confirmed by Alex Lewis ([id number]), editor index MITA HAN ([id number]) on 04/28/2025 10:03:00 AM Referred By: Confirmed By: Alex Lewis
--- NOTE | 2025-04-26 08:30 | CT_ITS ---
PROCEDURE: CT CHEST, ABD, PEL W/CONTRAST 04/26/2025 REASON FOR EXAM: FALL, RUQ PAIN AND R RIB PAIN TECHNIQUE: Chest, abdomen and pelvis CT with intravenous contrast. Coronal and Sagittal reconstruction series were provided. One or more dose reduction techniques were used (e.g., Automated exposure control, adjustment of the mA and/or kV according to patient size, use of iterative reconstruction technique. PATIENT PREPARATION: Per protocol ORAL CONTRAST TYPE: None. CONTRAST: Isovue 370 VOLUME: 75mL RADIATION DOSE SUMMARY: DLP: 9010.21 mGycm COMPARISON: CTA chest 05/05/2022 FINDINGS: CT CHEST: Pulmonary parenchyma: No focal lung consolidation. Mild dependent atelectasis. Airways: The central airways are patent. Pleural space: No pneumothorax or pleural effusion. Heart and pericardium: The heart is normal in size. No pericardial effusion. Limited evaluation of coronary artery calcification. Suspect coronary stent placement. Mediastinum and charlene: Unremarkable. Thoracic vessels: The thoracic aorta and main pulmonary artery are normal in caliber. Osseous structures: No aggressive osseous lesion. Acute nondisplaced fractures of the anterior 8th and 9th ribs (series 8, image 117 and 124). CT ABDOMEN/PELVIS: Liver: Hepatomegaly. Normal enhancement. No enhancing lesion. Gallbladder and biliary ducts: Unremarkable gallbladder. Normal caliber intrahepatic and common bile ducts. Pancreas:Unremarkable. No ductal dilatation or mass. No peripancreatic fluid. Spleen: Unremarkable. Adrenal glands: Unremarkable. Kidneys and ureters: Normal renal size, morphology, and enhancement. No nephroureterolithiasis or hydroureteronephrosis. No renal mass. Urinary bladder: Distended and unremarkable. GI: Unremarkable stomach and duodenum. Normal caliber small bowel and large bowel.No evidence for bowel obstruction. Appendix: Not definitively visualized. Peritoneum: No ascites. No pneumoperitoneum. Lymph nodes: No lymphadenopathy. Vasculature: Portal, splenic, and superior mesenteric veins are patent. No abdominal aortic aneurysm. Reproductive organs: Uterus present and unremarkable. No adnexal mass. Musculoskeletal and soft tissues: No aggressive osseous lesions. L4-L5 posterior fusion.Unremarkable soft tissues. CT/CT Chest, Abd, Pel w/Contrast IMPRESSION: 1. Acute nondisplaced fractures of the right anterior 8th and 9th ribs. 2. No acute traumatic pathology in the abdomen or pelvis. Reading Location: [id number]
--- NOTE | 2025-04-26 08:33 | EX.ED.DYSGE1 ---
HPI History of Present Illness Chief Complaint: Chest Other Narrative Narrative: Patient is a 45-year-old female with a past medical history of HERNANDEZ, CAD status post stents, diabetes, heart failure, hypertension who presented to the emergency department chief complaint of right rib pain. She states that on April 10 she slipped on water fell and hit her ribs on the side of the tub and she states that she thought things were getting better as she knows that you cannot do anything for broken ribs except for a time. She states that then again last night she was letting her dog outside around 1 AM slipped in mud fell and landed on that side again which exacerbated her pain again. She states that when she woke up this morning she was in severe pain therefore she came here to be further evaluated. Patient denies any blood thinning medications. [facility] Medical History Atherosclerosis of coronary artery of [place] heart without angina pectoris Depression Chronic pain HERNANDEZ (nonalcoholic steatohepatitis) Non-smoker Sleep apnea Diabetes mellitus type 1 Anxiety and depression Type 2 diabetes mellitus Chronic systolic (congestive) heart failure Ischemic cardiomyopathy Old anterior wall myocardial infarction Essential (primary) hypertension Syncope Hyperlipidemia Home Medications ?Medication ?Instructions ?Recorded ?Last Taken ?Type sertraline 100 mg tablet 100 mg PO QHS depression/anxiety 11/25/15 05/04/22 History gabapentin 300 mg capsule 1,200 mg PO QHS NEUROPATHY 12/04/18 05/04/22 History promethazine 25 mg tablet 25 mg PO Q6H PRN nausea and 10/30/21 05/02/22 Rx vomiting #20 tabs albuterol sulfate 90 mcg/actuation 2 puff inhalation Q4H PRN Wheezing 05/05/22 04/21/22 History aerosol inhaler (Ventolin HFA) insulin aspart U-100 100 unit/mL 20 unit subcut TIDCM DIABETES 05/05/22 05/04/22 History (3 mL) subcutaneous pen (Novolog FlexPen U-100 Insulin aspart) magnesium oxide 400 mg (241.3 mg 400 mg PO BID SUPPLEMENT 05/05/22 05/04/22 History magnesium) tablet ondansetron 4 mg disintegrating 4 mg PO Q8H PRN Nausea 05/05/22 05/02/22 History tablet aspirin 81 mg tablet,delayed 81 mg PO DAILY HEART HEALTH #90 08/01/22 Unknown Rx release (April Low Dose Aspirin) tabs pramipexole 0.25 mg tablet 0.25 mg PO QHS 08/01/22 Unknown History (Mirapex) acyclovir 400 mg tablet 400 mg PO BID ANTIVIRAL 10/22/23 Unknown History clopidogrel 75 mg tablet 75 mg PO DAILY heart #90 tabs 10/22/23 Unknown Rx nitroglycerin 0.4 mg sublingual 0.4 mg sublingual Q5M PRN Chest 10/22/23 Unknown Rx tablet Pain #1 BOTTLE oxcarbazepine 300 mg tablet 300 mg PO BID 10/22/23 Unknown History insulin glargine 100 unit/mL (3 30 unit subcut BID 05/02/24 Unknown History mL) subcutaneous pen (Basaglar KwikPen U-100 Insulin) atorvastatin 80 mg tablet 80 mg PO DAILY cholesterol #90 tabs 06/03/24 Unknown Rx ranolazine 1,000 mg 1,000 mg PO BID ANGINA #180 tabs 09/15/24 Unknown Rx tablet,extended release,12 hr lidocaine 5 % topical patch 1 patch topical DAILY #30 ea 04/26/25 Unknown Rx ondansetron 4 mg disintegrating 4 mg PO Q6H PRN nausea and 04/26/25 Unknown Rx tablet vomiting #20 tabs oxycodone-acetaminophen 5 mg-325 1 tab PO Q6H PRN pain 3 days #12 04/26/25 Unknown Rx mg tablet (Endocet) tabs Allergy/AdvReac Type Severity Reaction Status Date / Time perflutren (From Definity) Allergy Severe Anaphylaxis Verified 04/26/25 08:17 Penicillins Allergy Rash Verified 04/26/25 08:17 Sulfa (Sulfonamide Allergy Hives Verified 04/26/25 08:17 Antibiotics) metformin AdvReac Upset Verified 04/26/25 08:17 Stomach nitroglycerin AdvReac drops HR Verified 04/26/25 08:17 ticagrelor (From Brilinta) AdvReac Nose bleed Verified 04/26/25 08:19 Family History Father Cancer lung cancer Brother Diabetes Sister Diabetes Heart disease Hypertension High cholesterol Mother Heart disease High cholesterol Hypertension CVA (cerebral vascular accident) Grandmother Heart disease High cholesterol Hypertension Grandfather Heart disease High cholesterol Hypertension CVA (cerebral vascular accident) Surgical History History of left heart catheterization (05/05/20) History of coronary artery stent placement (09/29/20) History of tubal ligation History of lumbar fusion Social History Smoking Status: Never smoker alcohol intake: never substance use type: does not use ROS ROS ED ROS Narrative Constitutional: Denies any fevers, chills, headaches Cardiovascular: Denies chest pain Respiratory: Denies shortness of breath Abdomen: Denies abdominal pain nausea vomit diarrhea : Denies urinary symptoms Neurological: Denies any numbness, weakness, tingling Musculoskeletal: Complains of right rib pain as noted above Skin: Denies any rashes or lesions EXAM Physical Exam Narrative Exam Narrative: General: Patient was lying in bed resting comfortably did not appear to be in acute distress Head: Atraumatic, normocephalic Eyes: PERRL bilaterally, EOMI bilaterally, no conjunctival injection noted Neck: Soft, supple, trachea midline Cardiovascular: Regular rate and rhythm Respiratory: Clear to auscultation bilaterally Abdomen: Soft, nondistended, tender to palpation in the right upper quadrant no rebound or guarding on exam Musculoskeletal: Patient has some tenderness to palpation over the right lower rib cage as well Extremities: +5/5 strength noted in the bilateral upper and lower extremities Neurological: Patient following commands and that she was at [facility] year is 2024 Skin: Warm, dry, intact no rashes or lesions noted Const Vital Signs: 04/26/25 08:15 Temperature 97.6 F L Temperature Source Oral Pulse Rate 82 Respiratory Rate 16 Blood Pressure 120/71 Blood Pressure Mean 87 Pulse Ox 100 Oxygen Delivery Method Room Air MDM MDM MDM Narrative Medical decision making narrative: Patient is a 45-year-old female who presents to the emergency department chief complaint of right rib pain after falling for a second time yesterday within the last month. On the differential diagnose includes but not limited to liver laceration, rib fracture, pneumothorax, cholecystitis, pancreatitis. Once workup is obtained reviewed she will be reevaluated. Patient be given IV fluids morphine and Zofran. Per the patient she states that she does not have a contrast allergy to iodine as she states that she has had CT with contrast in the past. She notes that her mother had a severe reaction when she was little to contrast therefore they placed this in her chart as an allergy. She states that she has not gotten medication prior to getting the CT with contrast in the past and has done well. Patient's CBC reviewed and showed a white blood count is normal at 6.3, hemoglobin stable 12.8, platelet count 235. Patient INR normal at 0.8, PT of 11.7. Sodium is 132, potassium normal 4.2, creatinine was 0.76. Patient glucose elevated to 474 she was given a second liter of IV fluid as well as 10 units subcutaneous insulin insulin lispro. Patient did note she did not take her medications for her diabetes this morning including her insulin. Patient AST and ALT were 10 [address] chest abdomen pelvis with contrast reviewed and showed acute nondisplaced fractures of the right anterior 8th and 9th ribs no acute traumatic pathology in the abdomen or pelvis. Discussed results with the patient she would like to go home. Patient will be given incentive spirometry. Patient was advised to rotate Tylenol and ibuprofen [id number] for mild to moderate pain. She will be given a Lidoderm patch as well as a prescription for Endocet and Zofran. She was advised to not operate anything under the influence of the narcotic. She was encouraged to return with worsening symptoms or concerns otherwise she has to follow-up with her doctor in outpatient setting. All question concerns answered she was discharged home in stable condition Lab Data Labs: Laboratory Results - last 24 hr 04/26/25 04/26/25 08:47 10:52 WBC 6.3 RBC 4.37 Hgb 12.8 Hct 37.7 MCV 86.3 MCH 29.3 MCHC 34.0 RDW Std Deviation 39.8 RDW Coeff of Mariana 12.6 Plt Count 235 MPV 10.3 Immature Gran % (Auto) 0.300 Neut % (Auto) 61.9 Lymph % (Auto) 25.1 Tate % (Auto) 9.0 Eos % (Auto) 2.7 Baso % (Auto) 1.0 Absolute Neuts (auto) 3.9 Absolute Lymphs (auto) 1.57 Nucleated RBC % 0 PT 11.7 INR 0.8 APTT 23.5 L Sodium 132 L Potassium 4.2 Chloride 104 Carbon Dioxide 18.4 L Anion Gap 10 BUN 20 H Creatinine 0.76 Estim Creat Clear Calc 105.17 Est GFR (MDRD) Non-Af 99 BUN/Creatinine Ratio 26.5 H Glucose 474 H* Calcium 8.8 Total Bilirubin 0.19 Direct Bilirubin 0.09 AST 10 ALT 9 Alkaline Phosphatase 110 H Total Protein 6.6 Albumin 4.0 Globulin 2.7 POC Glucose 351 H Radiography Diagnostic Testing: Clinical Impression(s) from Imaging Studies Chest/Abdomen/Pelvis CT 04/26/25 08:30 IMPRESSION: 1. Acute nondisplaced fractures of the right anterior 8th and 9th ribs. 2. No acute traumatic pathology in the abdomen or pelvis. Reading Location: [facility] Discharge Plan Triage Chief Complaint: Chest Other ED Provider: Jass Urbina Dx/Rx/DC Orders Clinical Impression: Essential (primary) hypertension, Diabetes, Rib pain on right side, Fracture, ribs Prescriptions: New lidocaine 5 % adhesive patch,medicated 1 patch topical DAILY Qty: 30 0RF Rx Instructions: leave on most painful area for up to 12 hrs oxycodone-acetaminophen [Endocet] 5-325 mg tablet 1 tab PO Q6H PRN (Reason: pain) 3 Days Qty: 12 0RF ondansetron 4 mg tablet,disintegrating 4 mg PO Q6H PRN (Reason: nausea and vomiting) Qty: 20 0RF No Action pramipexole [Mirapex] 0.25 mg tablet 0.25 mg PO QHS aspirin [April Low Dose Aspirin] 81 mg tablet,delayed release (DR/EC) 81 mg PO DAILY Qty: 90 3RF oxcarbazepine 300 mg tablet 300 mg PO BID clopidogrel 75 mg tablet 75 mg PO DAILY Qty: 90 3RF nitroglycerin 0.4 mg tablet, sublingual 0.4 mg SUBLINGUAL Q5M PRN (Reason: Chest Pain) Qty: 1 3RF Patient Comments: insulin glargine [Basaglar KwikPen U-100 Insulin] 100 unit/mL (3 mL) insulin pen 30 unit subcut BID sertraline 100 MG tablet 100 mg PO QHS Patient Comments: depression gabapentin 300 MG capsule 1,200 mg PO QHS acyclovir 400 mg tablet 400 mg PO BID promethazine 25 mg tablet 25 mg PO Q6H PRN (Reason: nausea and vomiting) Qty: 20 0RF insulin aspart U-100 [Novolog FlexPen U-100 Insulin] 100 unit/mL (3 mL) insulin pen 20 unit SUBCUT TIDCM magnesium oxide 400 mg (241.3 mg magnesium) tablet 400 mg PO BID albuterol sulfate [Ventolin HFA] 1 INHALER HFA aerosol inhaler 2 puff inhalation Q4H PRN (Reason: Wheezing) ondansetron 4 MG tablet,disintegrating 4 mg PO Q8H PRN (Reason: Nausea) atorvastatin 80 mg tablet 80 mg PO DAILY Qty: 90 3RF ranolazine 1,000 mg tablet extended release 12 hr 1,000 mg PO BID Qty: 180 3RF Primary Care Provider: Jonathan Delcid Referrals: Jonathan Delcid MD [Primary Care Provider, [facility]] Activity Restrictions/Additional Instructions: Your CT showed you broke your 8th and 9th ribs. Rotate Tylenol and ibuprofen [id number] when you do this you can take something every 3 hours for pain with the max dose of Tylenol in 24 hours 4000 mg max dose of ibuprofen in 24 hours 3200 mg. Use Lidoderm patch as prescribed. Use incentive spirometry as educated to do. Use Endocet and Zofran as prescribed do not operate anything under the influence of the narcotic as it will make you sleepy and drowsy. Return with worsening symptoms or other concerns Print Language: Sinhala Disposition Disposition: Home, Self Care
[2025-04-26] MEDS: 0.9% Normal Saline (1000mL) 1,000 ML 999 ML IV ×2 (08:41→10:53)
[2025-04-26 08:50] LABS: Hematocrit 37.7 % (37-47); Hemoglobin 12.8 g/dL (12.0-15.0); Immature Granulocytes Count 0.020 X10^3/uL (0.0-0.0); Mean Corp Hgb Conc 34.0 g/dL (32-36); Mean Corpuscular Volume 86.3 fL (81-99); Mean Platelet Vol. 10.3 fl (6.2-12.0); NRBC Flagged by Analyzer 0 % (0-5); Platelet Count 235 K/mm3 (150-450); RBC Distribution Width CV 12.6 % (11.6-14.6); RBC Distribution Width SD 39.8 fl (35.1-43.9); Red Blood Count 4.37 M/mm3 (4.2-5.4); White Blood Count 6.3 K/mm3 (4.4-11.0)
[2025-04-26 08:58] LABS: Prothrombin Time (Protime)PT. 11.7 SECONDS (11.7-14.9)
[2025-04-26 08:59] LABS: Partial Thromboplast Time 23.5 Seconds (24.1-36.2)
[2025-04-26 09:19] LABS: AST(SGOT) 10 U/L (<=31); Alanine Aminotransfer ALT/SGPT 9 U/L (<=34); Albumin, Serum 4.0 g/dL (3.5-5.0); Alkaline Phosphatase 110 U/L (35-104); Anion Gap 10 (7-18); BUN 20 mg/dL (4-19); BUN/Creat Ratio 26.5 RATIO (10-20); Bilirubin, Direct 0.09 mg/dL (0.00-0.30); Calcium,Total 8.8 mg/dL (7.6-11.0); Carbon Dioxide 18.4 mmol/L (20.0-29.0); Chloride 104 mmol/L (96-106); Estimated Creatinine Clearance 105.17 ml/min (50-250); Globulin 2.7 g/dL (2.2-4.2); Glucose 474 mg/dL (70-99); Potassium 4.2 mmol/L (3.5-5.1)
[2025-04-26 11:44] VITALS: BP 114/77; PULSE 78; RESP 12; TEMP 36.1; O2SAT 100
== END 2025-04-26 11:49 | disposition home or self-care (01) ==
PROVIDERS: Emergency Provider Emergency Medicine; PCP Family Medicine; Visit Provider Emergency Medicine
DX: S22.41XA Multiple fractures of ribs, right side, initial encounter for closed fracture (principal); E11.9 Type 2 diabetes mellitus without complications; I25.10 Atherosclerotic heart disease of native coronary artery without angina pectoris; I25.2 Old myocardial infarction; I10 Essential (primary) hypertension; R07.89 Other chest pain; W01.0XXA Fall on same level from slipping, tripping and stumbling without subsequent striking against object, initial encounter; Y93.K1 Activity, walking an animal; Z95.5 Presence of coronary angioplasty implant and graft; Z98.1 Arthrodesis status; Z98.51 Tubal ligation status; E78.5 Hyperlipidemia, unspecified
CPT/HCPCS: 71260; 74177; 80048; 80076; 82962; 85025; 85610; 85730; 93005; 96361; 96374; 96375; 96376; 99283; Q9967; A4216; J2405